=== PATIENT | male | born 1940 | race Caucasian/White ===

== ENCOUNTER → 2020-06-13 | Outpatient (CLI) | payer MEDICARE, OTHER ==
[~2020-06-13] MED LIST: CINN500C9 PO; FLAX SEED PO; LEVA500T OR; MULTIVIT PO; OMEGA 3 PO; SIMV20TA2 PO; SIMV20TA22 PO; VICO5TAB PO
== END ==
LOC: M LABSMTC 09:24
PROVIDERS: ATTEND Internal Medicine Cardiovascular Disease
DX: Z20.828 Contact with and (suspected) exposure to other viral communicable diseases (principal); Z11.59 Encounter for screening for other viral diseases

== ENCOUNTER → 2020-10-15 | Outpatient (CLI) | payer MEDICARE, OTHER ==
[~2020-10-15] MED LIST changes: +CINN1CAP6 PO; +D-50TAB PO; +FLAX100016 PO; +FRUICAP PO; +ONDA8TAB10 PO; +PROC10TA4 PO; +SUPETAB PO; +[UNRECOGNIZED DRUG - OTHER] PO
== END ==
LOC: M LABSMTC 10:22
PROVIDERS: ATTEND Internal Medicine Cardiovascular Disease
DX: Z20.828 Contact with and (suspected) exposure to other viral communicable diseases (principal); Z11.59 Encounter for screening for other viral diseases

== ENCOUNTER 2020-10-23 06:19 | Inpatient (IN) | payer MEDICARE, OTHER ==
[2020-10-23] VITALS (48 sets, daily range): BP systolic 80–105; BP diastolic 50–71
[~2020-10-23] VITALS: Ht 175.3 cm; Wt 60.4 kg
[2020-10-23] MEDS ORDERED: ASPI81CH2 PO (06:31)
[2020-10-23] MEDS ORDERED: NS 500 ML IV ONE ×2 (06:35→08:00)
[2020-10-23] MEDS ORDERED: ISOVUE-370 76% 100ML VIAL As Ordered ONE (06:44)
[2020-10-23 06:53] LABS: HEMATOCRIT 38.9 % (42.0-52.0); HEMOGLOBIN 13.6 g/dl (13.5-17.5); MEAN CORPUSCULAR HEMOGLOBIN 32.9 pg (27.0-33.0); RED BLOOD COUNT 4.14 10^6/uL (4.30-6.10)
[2020-10-23] MEDS ORDERED: IMIPENEM/CILASTATIN 500 MG in D5W MINI-BAG PLUS 100 ML IV ONE (07:05)
[2020-10-23 07:07] LABS: INR 1.23; PARTIAL THROMBOPLASTIN TIME 30.9 SECONDS (25.9-37.0); PROTHROMBIN TIME 15.9 SECONDS (12.7-14.5)
[2020-10-23 07:20] LABS: ALBUMIN 3.3 GM/DL (3.2-5.2); ALT/SGPT 17 U/L (12-78); BILIRUBIN,DIRECT 0.4 MG/DL (0.0-0.2); BILIRUBIN,TOTAL 0.9 MG/DL (0.2-1.0); BLOOD UREA NITROGEN 15 MG/DL (7-18); CALCIUM LEVEL 8.7 MG/DL (8.8-10.2); CARBON DIOXIDE LEVEL 24 MEQ/L (21-32); CHLORIDE LEVEL 102 MEQ/L (98-107); CK-MB VALUE MASS < 1.0 NG/ML (<3.6); CPK CREATINE PHOSPHOKINASE 24 U/L (39-308); CREATININE FOR GFR 1.13 MG/DL (0.70-1.30); GLOMERULAR FILTRATION RATE > 60.0 (>35); GLUCOSE, FASTING 215 MG/DL (70-100); MB/CK RELATIVE INDEX 4.17 (< OR =4); NT-PRO BNP 2080 PG/ML (<450); POTASSIUM SERUM 3.6 MEQ/L (3.5-5.1); SODIUM LEVEL 137 MEQ/L (136-145); TOTAL PROTEIN 5.9 GM/DL (6.4-8.2); TROPONIN I 0.15 NG/ML (< 0.10)
[2020-10-23] MEDS ORDERED: ACETAMINOPHEN 325 MG TAB PO ONE (07:30)
[2020-10-23 07:32] LABS: PLATELET COUNT, AUTOMATED 49 10^3/uL (150-450); WHITE BLOOD COUNT 23.5 10^3/uL (4.0-10.0)
[2020-10-23 07:39] LABS: LYMPHOCYTES 2 % (16-44); MONOCYTES 8 % (0-5); NEUTROPHILS 84 % (28-66)
[2020-10-23 07:40] LABS: PLATELET ESTIMATE DECREASED (NORMAL)
--- NOTE | 2020-10-23 07:48 | REPVR ---
PROCEDURE INFORMATION: Exam: CTA Chest With Contrast Exam date and time: 10/23/2020 6:31 AM Age: 80 years old Clinical indication: Fever; Additional info: R/O tad, recent tavr, febrile TECHNIQUE: Imaging protocol: Computed tomographic angiography of the chest with contrast. 3D rendering (Not supervised by radiologist): MIP and/or 3D reconstructed images were created by the technologist. Radiation optimization: All CT scans at this facility use at least one of these dose optimization techniques: automated exposure control; mA and/or kV adjustment per patient size (includes targeted exams where dose is matched to clinical indication); or iterative reconstruction. Contrast material: ISO; Contrast volume: 75 ml; Contrast route: INTRAVENOUS (IV); COMPARISON: CT ANGIO CHEST - OUTSIDE PRIOR 06/18/2020 12:24 PM FINDINGS: Tubes, catheters and devices: Right chest MediPort. Pulmonary arteries: Normal. No pulmonary emboli. Aorta: Mild atherosclerotic disease of the thoracic aorta. Lungs: Centrilobular emphysema. Bilateral dependent and linear atelectasis. Several patchy nodular airspace and ground-glass opacities in the left lower lobe. Pleural spaces: Unremarkable. No pneumothorax. No pleural effusion. Heart: Coarsely calcified mitral annulus. Atherosclerotic disease of the coronary arteries. Status post aortic valve replacement. Lymph nodes: Unremarkable. No enlarged lymph nodes. Pancreas: Suggestion of pancreatic tail body segment mass Adrenal glands: Bilateral adrenal nodularity more pronounced on the left. Bones/joints: Osteopenia. Multilevel degenerative disease of the thoracic spine. Age-indeterminate probably chronic anterior wedge compression deformities of T1, T2, and T11. Chronic fracture deformities of several left ribs. Soft tissues: Unremarkable. IMPRESSION: No acute pulmonary embolic disease or thoracic aortic dissection. Several patchy nodular airspace and ground-glass opacities in the left lower lobe. Suggestion of pancreatic tail body segment mass Bilateral adrenal nodularity. Electronically signed by: Ryan Gray On 10/23/2020 07:48:15 AM
[2020-10-23] MEDS ORDERED: NS 790 ML in IV 1 EA IV ONE (08:00)
[2020-10-23 08:12] LABS: RSV AMPLIFICATION NEGATIVE (NEGATIVE)
--- NOTE | 2020-10-23 08:23 | REP ---
INDICATION: CHEST PAIN. COMPARISON: None. FINDINGS: The technique utilized in obtaining the radiograph has magnified the cardiac silhouette and accentuated the interstitial markings. The cardiomediastinal silhouette is within normal limits. There is an intracardiac device. There is a MediPort device entering from the right the tip of which is in the superior vena cava. The right CP angle has not been included on this portable radiograph. No patchy parenchymal opacities or pleural effusions are evident. The osseous structures are within normal limits. IMPRESSION: There is no plain radiographic evidence of acute cardiopulmonary disease. The patient did have a more sensitive CT examination of the chest earlier today. All interested parties should review that report. <Electronically signed by Javon Rucker > 10/23/20 1447
[2020-10-23] MEDS ORDERED: ONDA8TAB10 PO (08:47)
[2020-10-23] MEDS ORDERED: PROC10TA4 PO (08:47)
[2020-10-23] MEDS ORDERED: D31000TA2 PO (08:47)
[2020-10-23] MEDS ORDERED: HOME MED LIST COMPLETE! XX SCH (08:50)
[2020-10-23] MEDS ORDERED: ACETAMINOPHEN TAB 650MG DOSE (2X325MG) PO PRN (09:00)
[2020-10-23] MEDS: MULTIVITAMINS/MINERALS THERAP 1 TAB PO SCH (09:00)
[2020-10-23] MEDS ORDERED: ONDANSETRON 4 MG TAB PO PRN (09:00)
[2020-10-23] MEDS ORDERED: PROCHLORPERAZINE 5 MG TAB (S0183) PO PRN (09:00)
[2020-10-23] MEDS ORDERED: VANCOMYCIN HCL 1,250 MG in NS 250 ML IV ONE (09:05)
[2020-10-23] MEDS ORDERED: NOREPINEPHRINE BITARTRATE 8 MG in D5W 492 ML IV SCH (09:25)
[2020-10-23] MEDS ORDERED: HYDROCORTISONE 100 MG/2 ML VIAL (J1720 PER 1) IV ONE (09:25)
[2020-10-23] MEDS ORDERED: VANCOMYCIN HCL 1,000 MG, VIAL MATE ADAPTER 1 EACH in NS 250 ML IV SCH (09:30)
[2020-10-23] MEDS ORDERED: VANCOMYCIN HCL 750 MG, VIAL MATE ADAPTER 1 EACH in NS 250 ML IV ONE (10:00)
[2020-10-23] MEDS ORDERED: VANCOMYCIN HCL 500 MG in D5W MINI-BAG PLUS 100 ML IV ONE (11:00)
[2020-10-23] MEDS ORDERED: NS 1,000 ML IV ONE (11:30)
[2020-10-23] MEDS: NS 1,000 ML IV SCH (12:19)
--- NOTE | 2020-10-23 13:00 | HPEPDOC ---
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 Hernández and otherwise also follows at [place], otherwise was previously healthy, walked 5miles/day, who was doing well after his TAVR but last evening had rigors and this morning was drenched and hot to touch and weak and brought him to the ED. The reports fair PO, recent mild weakness but not the degree that he is today. He otherwise has not had any chest pain, palpitations, shortness of breath com plaints, abdominal pain, reports of bleeding in urine, stool or any part of his body. In the ED, he was hypotensive, febrile, weak, lethargic with mild degree of confusion. Workup was notable for LLL opacities on CTA chest with confirmation of a known pancreatic tail mass and CXR was unremarkable, stat TTE that confirmed that AV is working well as expected and EF is normal per Dr. Doran confirmed wet read, WBC 23.5, Hgb 13.6, platelets 49, na 137, K 3.6, Cr .113, glucose 215, lactic acidosis to 3, proBNP 2080, elevated troponin at 0.15 with an EKG with NSR without ST segment changes. He was given imipenem and vancomycin, 1.5L fluid bolus and started on peripheral levophed. He is now being admitted to the ICU for septic shock. 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 Hernández and otherwise also follows at [place] History of BPH HLD Chronic back complaints with remote history of falling off a roof with a history of several remote vertebral fractures PAST SURGICAL HISTORY: Colonoscopies Prostatectomy Abdominal hernia repair Bilateral cataract removal surgeries TAVR SOCIAL HISTORY: Tobacco use: quit >40y ago ETOH: Rare Illicit drug use: None FAMILY HISTORY: Unable to obtain due to lethargy ALLERGIES: Please see below. REVIEW OF SYSTEMS: Given by . 10point ROS was negative except as noted above. HOME MEDICATIONS: Please see below. PHYSICAL EXAMINATION: VITAL SIGNS: see below GENERAL APPEARANCE: Lethargic, however alert and oriented on questioning, x 3, elderly appearing, thin, diaphoretic, but breathing comfortably HEENT: NCAT, EOMI, PERRLA, dry MMM, anicteric CARDIOVASCULAR: RRR, systolic murmur at RUSB LUNGS: CTAB, has port at R upper chest, no surrounding erythema, had not been accessed in the ED ABDOMEN: Normoactive sounds, scaphoid, soft, NTND EXTREMITIES: WWP, 2+ DP pulses, no edema. Checked recent femoral access site did not have surrounding erythema, fluctuance or hematoma NEUROLOGICAL: CN3-12 intact, moving all extremities, drowsy but speech is clear when he speaks PSYCHIATRIC: Aox3 at this time LABORATORY DATA and IMAGING: summarized above MICROBIOLOGY: Please see below. 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 Hernández and otherwise also follows at [place], otherwise was previously healthy, walked 5miles/day, who was doing well after his TAVR but last evening had rigors and this morning was drenched and hot to touch and weak and brought him to the ED and is now being admitted to the ICU for septic shock. PLAN: Septic shock: s/p 30cc/kg IVF with persistent hypotension, fever, leukocytosis, tachycardia, lethargy -will give 2 more liters with 1L as bolus and 1L at 100cc/hr -continue levophed and will use port instead of placing a TLC, MAP goal >65 -IV vanc and imi empiric antibiotics -acetaminophen PRN for fevers -BCx -UA with UCx -CT with LLL GGOs c/w PNA -MRSA swab -procalcitonin -strict I/Os Thrombocytopenia: acute, was wnl on 10/08 pre-op -Possibly consumptive olman-op? vs. reactive to sepsis vs. pseudothrombocytopenia due to clumping i/s/o sepsis -will check peripheral smear -for now DVT ppx with TEDs and SCDs -monitor CBC daily Metabolic encephalopathy i/s/o overwhelming sepsis -empiric antibiotics as noted above -IVF -neuro exam is stable and wnl s/p recent TAVR: -valve is in place and working well and EF is wnl per Dr. Doran wet read Troponinemia: likely 2/2 demand ischemia i/s/o septic shock -TTE with normal EF and no reports of WMA per wet read and EKG without ST changes, and patient without complaints of chest pain, will trend -tele Lactic acidosis: i/s/o septic shock -IVF per above DVT ppx: TEDs and SCDs Vital Signs Vital Signs Date Time Temp Pulse Resp B/P (MAP) Pulse Ox O2 Delivery O2 Flow Rate FiO2 10/23/20 09:50 100.6 101 93/52 (66) 98 Nasal Cannula 2.0 10/23/20 09:25 22 Laboratory Data Labs 24H Laboratory Tests 2 10/23/20 06:32: POC Glucose (Misc Panel) 232H, POC Sodium (Misc Panel) 136, POC Potassium (Misc Panel) 3.6, POC Chloride (Misc Panel) 98, POC Total CO2 (Misc Panel) 20.0L, POC Blood Urea Nitrogen (Misc Panel 15, POC Ionized Calcium (Misc Panel) 4.4L, POC Creatinine (Misc Panel) 0.9, POC Hematocrit (Misc Panel) 40.0 10/23/20 06:38: Immature Granulocyte % (Auto) , Neutrophils (%) (Auto) , Nucleated Red Blood Cells % (auto) 0.1H, Neutrophils 84H, Band Neutrophils 6, Lymphocytes (Manual) 2L, Monocytes (Manual) 8H, Red Blood Cell Morphology NORMAL, Platelet Estimate DECREASED, Immature Platelet Fraction 7.1, Prothrombin Time 15.9H, Prothromb Ti me International Ratio 1.23, Activated Partial Thromboplast Time 30.9, Anion Gap 11, Glomerular Filtration Rate > 60.0, Calcium Level 8.7L, Total Bilirubin 0.9, Direct Bilirubin 0.4H, Aspartate Amino Transf (AST/SGOT) 13, Alanine Aminotransferase (ALT/SGPT) 17, Alkaline Phosphatase 132H, Total Creatine Kinase 24L, Creatine Kinase MB < 1.0, Creatine Kinase MB Relative Index 4.17H, Troponin I 0.15H, EP-Vic-N-Type Natriuretic Peptide 2080H, Total Protein 5.9L, Albumin 3.3, Albumin/Globulin Ratio 1.3 10/23/20 06:42: Lactic Acid Level 3.0*H, Coronavirus (COVID-19)(PCR) NEGATIVE, Influenza Type A (RT-PCR) NEGATIVE, Influenza Type B (RT-PCR) NEGATIVE, Respiratory Syncytial Virus (PCR) NEGATIVE 10/23/20 11:11: Lactic Acid Followup at 4 Hours 2.9*H CBC/BMP Laboratory Tests 10/23/20 06:38 Microbiology Microbiology 10/23/20 Blood Culture, Received Pending 10/23/20 Blood Culture, Received Pending Home Medications Scheduled Aspirin (Aspirin) 81 Mg Tab.chew, 81 MG PO QPM Cholecalciferol (Vitamin D3) (Vitamin D3) 1,000 Unit Tablet, 1,000 UNITS PO QPM Multivitamin (Super Multivitamin) 1 Each Tablet, 1 TAB PO QPM Scheduled PRN Ondansetron HCl (Ondansetron HCl) 8 Mg Tablet, 8 MG PO Q8H PRN for NAUSEA OR VOMITING Prochlorperazine Maleate (Prochlorperazine Maleate) 10 Mg Tablet, 10 MG PO Q8H PRN for NAUSEA OR VOMITING Allergies Coded Allergies: Penicillins (Unverified Allergy, Severe, RESPIRATORY PROBLEMS, 10/12/20) A-FIB/CHADSVASC A-FIB History Current/History of A-Fib/PAF?: No Current PO Anticoag Therapy: No Age/Risk Factor Scoring CHADSVASC: CHADSVASC Response (Comments) Value Age Risk Factor Age >/= 75 years old 2 Gender Risk Factor Male 0 Hx of CHF No 0 Hx of HTN No 0 Hx of Stroke/TIA/or VTE No 0 Hx of Diabetes No 0 Hx of Vascular Disease No 0 Total 2 Treatment Treatment ordered: NONE Reason Anticoagulant not given: Not indicated/[id number] NADINE MORAES MD Oct 23, 2020 12:48
[2020-10-23] MEDS: IMIPENEM/CILASTATIN 500 MG in D5W MINI-BAG PLUS 100 ML IV SCH ×2 (15:03→20:54)
[2020-10-23] MEDS: VITAMIN D 1,000 INTERNATIONAL UNITS TABLET PO SCH (18:15)
[2020-10-23] MEDS: ASPIRIN 81 MG CHEW TABLET PO SCH (18:15)
--- NOTE | 2020-10-23 19:17 | ECGEPIP ---
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
[2020-10-23] MEDS ORDERED: ENOXAPARIN 40MG/0.4ML SYRINGE (J1650 PER 10MG) SC SCH (21:00)
[2020-10-24] VITALS (42 sets, daily range): BP systolic 80–133; BP diastolic 43–71
[2020-10-24] MEDS ORDERED: NOREPINEPHRINE BITARTRATE 16 MG in D5W 484 ML IV SCH ×2
[2020-10-24] MEDS ORDERED: VANCOMYCIN HCL 750 MG, VIAL MATE ADAPTER 1 EACH in NS 250 ML IV SCH ×3
[2020-10-24] MEDS: NS 1,000 ML IV SCH (00:14)
[2020-10-24] MEDS: IMIPENEM/CILASTATIN 500 MG in D5W MINI-BAG PLUS 100 ML IV SCH ×2 (02:04→08:29)
[2020-10-24 04:39] LABS: HEMATOCRIT 29.9 % (42.0-52.0); HEMOGLOBIN 10.3 g/dl (13.5-17.5); MEAN CORPUSCULAR HEMOGLOBIN 32.6 pg (27.0-33.0); MEAN CORPUSCULAR HGB CONC 34.4 g/dl (32.0-36.5); MEAN CORPUSCULAR VOLUME 94.6 fl (80.0-96.0); RED BLOOD COUNT 3.16 10^6/uL (4.30-6.10); WHITE BLOOD COUNT 29.1 10^3/uL (4.0-10.0)
[2020-10-24 04:47] LABS: PLATELET COUNT, AUTOMATED 41 10^3/uL (150-450)
[2020-10-24 04:55] LABS: BLOOD UREA NITROGEN 18 MG/DL (7-18); CARBON DIOXIDE LEVEL 23 MEQ/L (21-32); CHLORIDE LEVEL 109 MEQ/L (98-107); CREATININE FOR GFR 0.73 MG/DL (0.70-1.30); GLOMERULAR FILTRATION RATE > 60.0 (>35); GLUCOSE, FASTING 164 MG/DL (70-100); MAGNESIUM LEVEL 1.7 MG/DL (1.8-2.4); POTASSIUM SERUM 3.3 MEQ/L (3.5-5.1); SODIUM LEVEL 139 MEQ/L (136-145)
[2020-10-24] MEDS: MULTIVITAMINS/MINERALS THERAP 1 TAB PO SCH (08:29)
[2020-10-24] MEDS ORDERED: MAG SULF 1GM/100ML (MAG RUN) 1 GM in IV 1 EA IV ONE (10:00)
[2020-10-24] MEDS ORDERED: CALCIUM GLUCONATE 1,000 MG in D5W MINI-BAG PLUS 100 ML IV ONE (10:00)
[2020-10-24] MEDS ORDERED: POTASSIUM CHLORIDE 10 MEQ SR TABLET PO ONE (10:00)
--- NOTE | 2020-10-24 13:55 | IPNPDOC ---
Text Note Date of Service The patient was seen on 10/24/20. NOTE SUBJECTIVE: -No acute complaints, now on room air -Mentating well this morning, conversant -Was placed on transient levophed overnight, now off PHYSICAL EXAMINATION: VITAL SIGNS: see below GENERAL APPEARANCE: AO x 3, elderly appearing, thin, on room air HEENT: NCAT, EOMI, PERRLA, MMM, anicteric CARDIOVASCULAR: RRR, systolic murmur at RUSB LUNGS: CTAB, has port at R upper chest, no surrounding erythema, port in use, on room air ABDOMEN: Normoactive sounds, scaphoid, soft, NTND EXTREMITIES: WWP, 2+ DP pulses, no edema. NEUROLOGICAL: CN3-12 intact, moving all extremities, sitting up in chair, AOx3 PSYCHIATRIC: Aox3 at this time LABORATORY DATA: WBC 29.1 hgb 10.3 platelets 41 na 139 K 3.3 ( repleted) mag 1.7 ( repleted) Ca 7 (repleted) Cr 0.73 MICROBIOLOGY: Please see below. 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 Hernández and otherwise also follows at [place], otherwise was previously healthy, walked 5miles/day, who was doing well after his TAVR but developed rigors, fevers and weakness now admitted to the ICU for septic shock with Staph bacteremia. PLAN: Septic shock: s/p 30cc/kg IVF with persistent hypotension, fever, leukocytosis, tachycardia, lethargy: Improving -s/p IVF -Was on low dose levophed overnight, now MAPs >65 off levophed, will monitor closely -IV vanc -dc imipenem with nancy staph bacteremia -acetaminophen PRN for fevers -BCx growing Staph --> will need ID consult on monday. Check new BCx daily till negative. -UA with UCx -CT with LLL GGOs c/f PNA -MRSA PCR was negative Thrombocytopenia: acute, was wnl on 10/08 pre-op: persistent -Possibly consumptive olman-op? vs. reactive to sepsis vs. pseudothrombocytopenia due to clumping i/s/o sepsis -f/u peripheral smear -for now DVT ppx with TEDs and SCDs -monitor CBC daily Metabolic encephalopathy i/s/o overwhelming sepsis: improving -empiric antibiotics as noted above -s/p IVF -neuro exam is stable and wnl s/p recent TAVR: -valve is in place and working well and EF is wnl per Dr. Doran wet read Troponinemia: likely 2/2 demand ischemia i/s/o septic shock -TTE with normal EF and no reports of WMA per wet read and EKG without ST changes, and patient without complaints of chest pain, will trend -tele Lactic acidosis: i/s/o septic shock -s/p IVF DVT ppx: TEDs and SCDs VS,Fishbone, I+O VS, Fishbone, I+O Laboratory Tests 10/24/20 04:21 Vital Signs Date Time Temp Pulse Resp B/P (MAP) Pulse Ox O2 Delivery O2 Flow Rate FiO2 10/24/20 07:00 90 101/57 (72) 98 Nasal Cannula 2.0 10/24/20 04:00 98.0 10/24/20 01:34 30 I&O- Last 24 Hours up to 6 AM 10/24/20 06:00 Intake Total 4565 ml Output Total 1000 ml Balance 3565 ml NADINE MORAES MD Oct 24, 2020 08:46
[2020-10-24] MEDS: VANCOMYCIN HCL 1,000 MG, VIAL MATE ADAPTER 1 EACH in NS 250 ML IV SCH (14:01)
[2020-10-24] MEDS ORDERED: NS 1,000 ML IV SCH (17:00)
[2020-10-24] MEDS: ASPIRIN 81 MG CHEW TABLET PO SCH (17:50)
[2020-10-24] MEDS: VITAMIN D 1,000 INTERNATIONAL UNITS TABLET PO SCH (17:50)
[2020-10-25] VITALS: BP 106/57
[2020-10-25] MEDS: VANCOMYCIN HCL 1,000 MG, VIAL MATE ADAPTER 1 EACH in NS 250 ML IV SCH (01:27)
[2020-10-25 04:00] VITALS: BP 107/56
[2020-10-25 05:21] LABS: HEMATOCRIT 28.6 % (42.0-52.0); HEMOGLOBIN 9.9 g/dl (13.5-17.5); MEAN CORPUSCULAR HEMOGLOBIN 32.8 pg (27.0-33.0); MEAN CORPUSCULAR HGB CONC 34.6 g/dl (32.0-36.5); MEAN CORPUSCULAR VOLUME 94.7 fl (80.0-96.0); RED BLOOD COUNT 3.02 10^6/uL (4.30-6.10); WHITE BLOOD COUNT 20.8 10^3/uL (4.0-10.0)
[2020-10-25 05:32] LABS: PLATELET COUNT, AUTOMATED 39 10^3/uL (150-450)
[2020-10-25 05:43] LABS: BLOOD UREA NITROGEN 19 MG/DL (7-18); CARBON DIOXIDE LEVEL 22 MEQ/L (21-32); CHLORIDE LEVEL 111 MEQ/L (98-107); CREATININE FOR GFR 0.72 MG/DL (0.70-1.30); GLOMERULAR FILTRATION RATE > 60.0 (>35); GLUCOSE, FASTING 123 MG/DL (70-100); POTASSIUM SERUM 3.7 MEQ/L (3.5-5.1); SODIUM LEVEL 139 MEQ/L (136-145)
[2020-10-25 08:10] VITALS: BP 116/56
[2020-10-25] MEDS ORDERED: VANCOMYCIN HCL 1,000 MG, VIAL MATE ADAPTER 1 EACH in NS 250 ML IV SCH (09:00)
[2020-10-25 09:42] LABS: MAGNESIUM LEVEL 2.1 MG/DL (1.8-2.4)
[2020-10-25] MEDS: MULTIVITAMINS/MINERALS THERAP 1 TAB PO SCH (09:51)
[2020-10-25 12:08] VITALS: BP 115/61
[2020-10-25] MEDS: ceFAZolin SOD 2 GM in IV 1 EA IV SCH ×2 (14:09→21:13)
--- NOTE | 2020-10-25 14:28 | IPNPDOC ---
Subjective Date Seen The patient was seen on 10/25/20. Subjective Chief Complaint/HPI Feels very weak and tired. No fever in the past 24 hours. Blood cultures are coming back positive for MSSA Objective Physical Examination General Exam: Positive: Alert, Cooperative, No Acute Distress Eye Exam: Positive: PERRLA, Conjunctiva & lids normal, EOMI; Negative: Sclera icteric ENT Exam: Positive: Atraumatic, Mucous membr. moist/pink, Pharynx Normal Neck Exam: Positive: Supple; Negative: JVD, thyromegaly Chest Exam: Positive: Clear to auscultation, Normal air movement Heart Exam: Positive: Tachycardic, Irregular Rhythm, Normal S1, Normal S2; Negative: Murmurs, Rubs Abdomen Exam: Positive: Normal bowel sounds, Soft; Negative: Tenderness Extremity Exam: Negative: Clubbing, Cyanosis, Edema Neuro Exam: Positive: Normal Speech, Strength at 5/5 X4 ext, Normal Tone Psych Exam: Positive: Memory Intact, Oriented x 3 Assessment /Plan Assessment 80 yo M with history of critical s/p TAVR on 10/19/20, diagnosis of pancreatic cancer in June 2020 pending to be started on FOLFOXIRI by Dr. Hernández and otherwise also follows at [place], otherwise was previously healthy, walked 5miles/day, who was doing well after his TAVR but developed rigors, fevers and weakness now admitted to the ICU for septic shock with Staph bacteremia. Septic shock: MSSA bacterimia CTA of chest showed: Several patchy nodular airspace and ground-glass opacities in the left lower lobe. Has a chemoport and bioprosthetic aortic valve in place. Also showed the known pancreatic tail body segment mass and Bilateral adrenal nodularity. s/p IVF sepsis protocol and levophed. We will change vancomycin to cefazolin Patient carries penicillin allergy so will watch closely for any allergic reaction to cefazolin consult ID on Monday. Possible left lower lobe pneumonia with MSSA bacterimia. CTA of chest showed: Several patchy nodular airspace and ground-glass opacities in the left lower lobe. continue Cefazolin. Thrombocytopenia was wnl on 10/08/20 pre-op Possibly consumptive olman-op? vs. reactive to sepsis vs. pseudothrombocytopenia due to clumping i/s/o sepsis f/u peripheral smear for now DVT ppx with TEDs and SCDs monitor CBC daily Metabolic encephalopathy Due to sepsis Improved s/p recent TAVR: Needed the valve fixed in anticipation of surgery for the pancreatic cancer. valve is in place and working well and EF is wnl per Dr. Doran wet read However in view of the positive blood cultures may need ESA We will consult ID Troponinemia: likely 2/2 demand ischemia i/s/o septic shock TTE with normal EF and no reports of WMA per wet read and EKG without ST changes, and patient without complaints of chest pain, will trend Lactic acidosis: i/s/o septic shock s/p IVF DVT ppx: TEDs and SCDs Plan/VTE VTE Prophylaxis Ordered?: Yes VS, I&O, 24H, Fishbone Vital Signs/I&O Vital Signs Date Time Temp Pulse Resp B/P (MAP) Pulse Ox O2 Delivery O2 Flow Rate FiO2 10/25/20 08:10 98.5 89 16 116/56 (76) 98 Room Air 10/24/20 07:30 2.0 I&O- Last 24 Hours up to 6 AM 10/25/20 06:00 Intake Total 3762 ml Output Total 1075 ml Balance 2687 ml Laboratory Data 24H LABS Laboratory Tests 2 10/24/20 12:36: Vancomycin Level Trough 5.7L 10/25/20 05:06: Nucleated Red Blood Cells % (auto) 0.0, Immature Platelet Fraction 14.4H, Anion Gap 6L, Glomerular Filtration Rate > 60.0, Calcium Level 7.0L, Random Vancomycin Level 18.0 CBC/BMP Laboratory Tests 10/25/20 05:06 Microbiology Microbiology 10/24/20 Blood Culture, Received Pending 10/24/20 Blood Culture, Received Pending 10/23/20 Blood Culture - Final, Complete Staphylococcus Aureus 10/23/20 Blood Culture - Final, Complete Staphylococcus Aureus Evelyn Lakhani MD Oct 25, 2020 09:07
[2020-10-25 16:20] VITALS: BP 109/55
--- NOTE | 2020-10-25 17:29 | ECHO ---
ECHOCARDIOGRAM DATE OF PROCEDURE: 10/23/2020 Age: 80 Gender: Male REFERRING PHYSICIAN: Bam Aguilera DO REASON FOR THE TESTING: Fever, aortic valve replacement/transcatheter aortic valve replacement (TAVR). MEASUREMENTS: 2D Measurements: None Doppler Measurements: Peak velocity across the aortic valve 1.66 m/sec Peak gradient across the aortic valve 11 mmHg Mean gradient across the aortic valve 7.5 mmHg Peak velocity across the LVOT 0.7 m/sec Mitral E 0.92 Mitral A 1.04 with a ratio of 0.89 Maximum tricuspid valve velocity 2.2 m/sec 2D COMMENTS: 1. Normal left ventricular size, wall thickness and low normal global left ventricular systolic function. The estimated left ventricular ejection fraction is 50-55%. 2. Subsequently, the left atrium appeared to be normal. Normal right atrium and right ventricle. 3. The atrial septum appeared to be normal without evidence of defect or shunt. 4. Normal aortic root. 5. Trace pericardial effusion. No evidence of cardiac tamponade. 6. Bioprosthetic valve noted in the aortic valve position. Leaflet excursion appeared to be normal. Moderately calcified mitral annulus with normal anterior mitral valve leaflet motion. The tip of the anterior mitral valve leaflet appeared to be calcified. Normal tricuspid valve. The pulmonic valve and proximal pulmonary artery branches were not well visualized. 7. The inferior vena cava was normal in size. Central venous pressure was most likely normal. DOPPLER: It detects trace to mild aortic regurgitation, mild mitral regurgitation, trace to mild tricuspid regurgitation. The calculated pulmonary artery systolic pressure was normal. Abnormal relaxation pattern was noted across the mitral valve leaflets as well as the mitral valve annulus consistent with features of grade 1 left ventricular systolic dysfunction. IMPRESSION: 1. Low normal global left ventricular systolic function. There are some features of grade 1 left ventricular diastolic dysfunction manifested by abnormal relaxation. 2. Bioprosthetic aortic valve with trace to mild aortic regurgitation. 3. Moderately calcified mitral annulus with mild mitral regurgitation. 4. Trace to mild tricuspid regurgitation with a normal calculated pulmonary artery systolic pressure. 5. Trace pericardial effusion. 6. This study was discussed with the emergency room (ER) provider as well as the hospitalist admitting the patient. RENZO
[2020-10-25] MEDS: ASPIRIN 81 MG CHEW TABLET PO SCH (18:24)
[2020-10-25 20:00] VITALS: BP 121/60
[2020-10-26] VITALS (7 sets, daily range): BP systolic 93–137; BP diastolic 48–69
[2020-10-26 05:09] LABS: HEMOGLOBIN 11.4 g/dl (13.5-17.5); MEAN CORPUSCULAR HEMOGLOBIN 32.5 pg (27.0-33.0); MEAN CORPUSCULAR HGB CONC 34.5 g/dl (32.0-36.5); RED BLOOD COUNT 3.51 10^6/uL (4.30-6.10); WHITE BLOOD COUNT 27.5 10^3/uL (4.0-10.0)
[2020-10-26 05:11] LABS: PLATELET COUNT, AUTOMATED 61 10^3/uL (150-450)
[2020-10-26 05:26] LABS: BLOOD UREA NITROGEN 15 MG/DL (7-18); CALCIUM LEVEL 7.3 MG/DL (8.8-10.2); CARBON DIOXIDE LEVEL 25 MEQ/L (21-32); CHLORIDE LEVEL 106 MEQ/L (98-107); CREATININE FOR GFR 0.79 MG/DL (0.70-1.30); GLOMERULAR FILTRATION RATE > 60.0 (>35); GLUCOSE, FASTING 111 MG/DL (70-100); POTASSIUM SERUM 3.4 MEQ/L (3.5-5.1); SODIUM LEVEL 138 MEQ/L (136-145)
[2020-10-26] MEDS: ceFAZolin SOD 2 GM in IV 1 EA IV SCH ×3 (05:35→21:20)
[2020-10-26] MEDS ORDERED: POTASSIUM CHLORIDE 10 MEQ SR TABLET PO ONE (07:10)
[2020-10-26] MEDS: LACTOBACILLUS ACIDOPHILUS CAP (BACID) PO SCH ×2 (09:10→21:19)
[2020-10-26] MEDS: MULTIVITAMINS/MINERALS THERAP 1 TAB PO SCH (09:10)
--- NOTE | 2020-10-26 12:24 | IPNPDOC ---
Subjective Date Seen The patient was seen on 10/26/20. Subjective Chief Complaint/HPI Sitting up in chair this morning eating breakfast. Reports that he feels a little better than yesterday and has a little more appetite than yesterday. Continues to have low-grade fever. Objective Physical Examination General Exam: Positive: Alert, Cooperative, No Acute Distress Eye Exam: Positive: PERRLA, Conjunctiva & lids normal, EOMI; Negative: Sclera icteric ENT Exam: Positive: Atraumatic, Mucous membr. moist/pink, Pharynx Normal Neck Exam: Positive: Supple; Negative: JVD, thyromegaly Chest Exam: Positive: Clear to auscultation, Normal air movement Heart Exam: Positive: Tachycardic, Irregular Rhythm, Normal S1, Normal S2; Negative: Murmurs, Rubs Abdomen Exam: Positive: Normal bowel sounds, Soft; Negative: Tenderness Extremity Exam: Negative: Clubbing, Cyanosis, Edema Neuro Exam: Positive: Normal Speech, Strength at 5/5 X4 ext, Normal Tone Psych Exam: Positive: Memory Intact, Oriented x 3 Assessment /Plan Assessment 80 yo M with history of critical s/p TAVR on 10/19/20, diagnosis of pancreatic cancer in June 2020 pending to be started on FOLFOXIRI by Dr. Hernández and otherwise also follows at [place], otherwise was previously healthy, walked 5miles/day, who was doing well after his TAVR but developed rigors, fevers and weakness now admitted to the ICU for septic shock with Staph bacteremia. Septic shock: MSSA bacterimia CTA of chest showed: Several patchy nodular airspace and ground-glass opacities in the left lower lobe. Has a chemoport and bioprosthetic aortic valve in place. Also showed the known pancreatic tail body segment mass and Bilateral adrenal nodularity. s/p IVF sepsis protocol and levophed. We will change vancomycin to cefazolin consulted ID Possible left lower lobe pneumonia with MSSA bacterimia. CTA of chest showed: Several patchy nodular airspace and ground-glass opacities in the left lower lobe. continue Cefazolin. Thrombocytopenia was wnl on 10/08/20 pre-op Possibly consumptive olman-op? vs. reactive to sepsis vs. pseudothrombocytopenia due to clumping i/s/o sepsis f/u peripheral smear for now DVT ppx with TEDs and SCDs monitor CBC daily Metabolic encephalopathy Due to sepsis Improved s/p recent TAVR: Needed the valve fixed in anticipation of surgery for the pancreatic cancer. valve is in place and working well and EF is wnl However in view of the positive blood cultures may need ESA We will consult ID Troponinemia: likely 2/2 demand ischemia i/s/o septic shock TTE with normal EF and no WMA and EKG without ST changes, and patient without complaints of chest pain Lactic acidosis: i/s/o septic shock s/p IVF Plan/VTE VTE Prophylaxis Ordered?: Yes VS, I&O, 24H, Fishbone Vital Signs/I&O Vital Signs Date Time Temp Pulse Resp B/P (MAP) Pulse Ox O2 Delivery O2 Flow Rate FiO2 10/26/20 11:22 97.9 79 18 137/68 (91) 96 Room Air 10/24/20 07:30 2.0 I&O- Last 24 Hours up to 6 AM 10/26/20 06:00 Intake Total 890 ml Output Total 1150 ml Balance -260 ml Laboratory Data 24H LABS Laboratory Tests 2 10/26/20 04:43: Nucleated Red Blood Cells % (auto) 0.0, Anion Gap 7L, Glomerular Filtration Rate > 60.0, Calcium Level 7.3L 10/26/20 11:32: Lab Scanned Report Miscellaneous Lab CBC/BMP Laboratory Tests 10/26/20 04:43 Microbiology Microbiology 10/24/20 Blood Culture - Preliminary, Resulted No Growth after 48 hours. All Specime... 10/24/20 Blood Culture - Preliminary, Resulted No Growth after 48 hours. All Specime... 10/23/20 Blood Culture - Final, Complete Staphylococcus Aureus 10/23/20 Blood Culture - Final, Complete Staphylococcus Aureus Evelyn Lakhani MD Oct 26, 2020 12:24
[2020-10-26] MEDS: ASPIRIN 81 MG CHEW TABLET PO SCH (17:00)
[2020-10-27] VITALS: BP 105/66
[2020-10-27 04:00] VITALS: BP 117/56
[2020-10-27] MEDS: ceFAZolin SOD 2 GM in IV 1 EA IV SCH ×3 (05:34→21:18)
--- NOTE | 2020-10-27 05:52 | CR ---
CONSULTATION DATE: 10/26/2020 REQUESTING PHYSICIAN: Evelyn Lakhani M.D. REASON FOR CONSULTATION: Evaluation of Staph aureus bacteremia in a patient who recently had a TAVR procedure. HISTORY OF PRESENT ILLNESS: Mr. Beal is an 80-year-old gentleman with a history of critical aortic stenosis status post TAVR procedure on 10/19/2020 at [facility] done by Dr. Jeovany Fletcher. The patient was also seen at [facility] on 09/28 and 09/29 for a workup of pancreatic cancer and was going to be started on FOLFOXIRI with Dr. Hernández. He had a port placed in his right upper chest by Dr. Gonzales. Patient presented to [facility] on 10/23 with rigors, fever, chills and weakness. He had no chest pain or palpitations. No shortness of breath. No cough. No abdominal pain, dysuria or hematuria. He has a mild cough which is mostly nonproductive. In the Emergency Room he was hypotensive, febrile, lethargic. He was diagnosed with septic shock. He was placed on Levophed and transferred to the ICU and started on broad-spectrum antibiotics with Imipenem and Vancomycin, on 10/25 after blood cultures were positive he was switched to IV Cefazolin. The patient is feeling better. He is sitting at the bedside. He has a catheter for urinary retention in the ICU. Per chart review patient had chemo 10/12-10/14 5FU oxaplatin and neupogen 10/19 before his TAVR procedure at [facility] WBC 22,000 Plts 66 and on 10/20 the day of discharge his white count was 18.5. PAST MEDICAL HISTORY: Significant for pancreatic cancer, had cycle#[address] Hernández 10/12-10/14/2020, critical aortic stenosis status post TAVR 10/19/[address] Fletcher, BPH, hyperlipidemia, chronic back pain with degenerative disc disease, vertebral fracture, colonic polyp with a colonoscopy done in [address] Pineda. PAST SURGICAL HISTORY: Prostatectomy for prostate cancer, abdominal hernia repair, bilateral cataract removal, TAVR. SOCIAL HISTORY: Quit smoking more than 40 years ago. Rare alcohol use, no drug use. He lives with his , . ALLERGIES: Penicillin. MEDICATIONS: 1. Probiotics one tablet p.o. b.i.d. 2. Cefazolin 2 grams IV q. 8 hours. 3. Aspirin 81 mg p.o. daily. 4. Multivitamin one tablet daily. 5. Compazine 10 mg p.o. q. 8 p.r.n. 6. Zofran 8 mg q. 8 p.r.n. LABORATORY DATA: White count on admission was 23.5, today it was 27.5, hemoglobin 11.4, hematocrit 33, platelets 61, sodium 138, potassium 3.4, chloride 106, bicarbonate 25, BUN 15, creatinine 0.79, glucose 111, calcium 7.3, lactic acid 3 on admission, follow-up at 2.9. Magnesium 2.1. CRP 4.01. Blood cultures two sets on 10/23 was positive for MSSA and on 10/24 two sets were negative, on 10/26 cultures are pending. On 10/23 CT angiogram showed no acute pulmonary disease or thoracic dissection, several patchy nodular airspace and ground-glass opacities in the left lower lobe and pancreatic tail mass, bilateral adrenal nodularities. Chest x-ray: No plain radiographic evidence of acute cardiopulmonary disease. PHYSICAL EXAMINATION: GENERAL: He is a pleasant gentleman sitting in his chair in no acute distress. He is thin. HEART: Normal S1 and S2, distant soft ejection murmur 1/6. LUNGS: Clear. No wheezes, rales or rhonchi. ABDOMEN: Soft, nontender. No hepatosplenomegaly. BACK: No CVA or lumbosacral tenderness. EXTREMITIES: No cyanosis, clubbing or edema. NEUROLOGIC: Normal. Alert and oriented x3. CHEST: Infusaport right upper chest, nontender. No redness. Access is not being used. : Mak catheter in place with clear urine. REVIEW OF SYSTEMS: He denies nausea, vomiting or diarrhea. He has decreased appetite and weight loss. He denies pain in the port site. He has mild cough but no shortness of breath. IMPRESSION: This is an 80-year-old gentleman who has a recent diagnosis of pancreatic cancer, waiting for Whipple procedure and he was supposed to have three cycles of chemotherapy prior to the resection. S/P TAVR procedure on 10/19 admitted with MSSA bacteremia on IV cefazolin doing better . He had first cycle of chemotherapy 10/11- 10/14 and had neulasta that would explain worsening leukocytosis . He was in septic shock but improved transferred to PCU PLAN: The case has been discussed with his environmental studies department chair, Dr. Coronado in [place] and Dr. Jeovany Fletcher who did his TAVR procedure, they both agreed that the patient will likely need six weeks of IV antibiotics with Cefazolin 2 grams every 8 hours. He will have a transesophageal echocardiogram in the next 1-[address] Coronado. It is too early to have ESA procedure done. Due to his severe thrombocytopenia, cardiology recommended to discontinue aspirin. Due to his persistent leukocytosis, I would suggest to obtain a CT of the abdomen and pelvis to rule out any metastatic infection. [facility]
[2020-10-27 05:53] LABS: HEMATOCRIT 29.8 % (42.0-52.0); HEMOGLOBIN 10.3 g/dl (13.5-17.5); MEAN CORPUSCULAR HEMOGLOBIN 32.6 pg (27.0-33.0); MEAN CORPUSCULAR HGB CONC 34.6 g/dl (32.0-36.5); MEAN CORPUSCULAR VOLUME 94.3 fl (80.0-96.0); RED BLOOD COUNT 3.16 10^6/uL (4.30-6.10)
[2020-10-27 05:54] LABS: PLATELET COUNT, AUTOMATED 80 10^3/uL (150-450)
[2020-10-27 06:17] LABS: BLOOD UREA NITROGEN 14 MG/DL (7-18); CALCIUM LEVEL 7.5 MG/DL (8.8-10.2); CARBON DIOXIDE LEVEL 24 MEQ/L (21-32); CHLORIDE LEVEL 109 MEQ/L (98-107); CREATININE FOR GFR 0.69 MG/DL (0.70-1.30); GLOMERULAR FILTRATION RATE > 60.0 (>35); GLUCOSE, FASTING 104 MG/DL (70-100); POTASSIUM SERUM 3.6 MEQ/L (3.5-5.1); SODIUM LEVEL 141 MEQ/L (136-145)
[2020-10-27 08:00] VITALS: BP 128/70
[2020-10-27] MEDS: LACTOBACILLUS ACIDOPHILUS CAP (BACID) PO SCH ×2 (08:08→21:18)
[2020-10-27] MEDS: MULTIVITAMINS/MINERALS THERAP 1 TAB PO SCH (08:08)
[2020-10-27] MEDS: GASTROGRAFIN SOLUTION 30ML PO SCH ×2 (08:09→08:49)
[2020-10-27] MEDS ORDERED: ISOVUE-370 76% 100ML VIAL As Ordered ONE (10:50)
--- NOTE | 2020-10-27 10:57 | IPNPDOC ---
Subjective Date Seen The patient was seen on 10/27/20. Subjective Chief Complaint/HPI Feels a little better this morning. Having more better appetite today. No fever in the past 24 hours. Objective Physical Examination General Exam: Positive: Alert, Cooperative, No Acute Distress Eye Exam: Positive: PERRLA, Conjunctiva & lids normal, EOMI; Negative: Sclera icteric ENT Exam: Positive: Atraumatic, Mucous membr. moist/pink, Pharynx Normal Neck Exam: Positive: Supple; Negative: JVD, thyromegaly Chest Exam: Positive: Clear to auscultation, Normal air movement Heart Exam: Positive: Tachycardic, Irregular Rhythm, Normal S1, Normal S2; Negative: Murmurs, Rubs Abdomen Exam: Positive: Normal bowel sounds, Soft; Negative: Tenderness Extremity Exam: Negative: Clubbing, Cyanosis, Edema Neuro Exam: Positive: Normal Speech, Strength at 5/5 X4 ext, Normal Tone Psych Exam: Positive: Memory Intact, Oriented x 3 Assessment /Plan Assessment 80 yo M with history of critical s/p TAVR on 10/19/20, diagnosis of pancreatic cancer in June 2020 pending to be started on FOLFOXIRI by Dr. Hernández and otherwise also follows at [place], otherwise was previously healthy, walked 5miles/day, who was doing well after his TAVR but developed rigors, fevers and weakness now admitted to the ICU for septic shock with Staph bacteremia. Septic shock: MSSA bacterimia Has a chemoport and bioprosthetic aortic valve in place. Patient had a WBC of 22K even before TAVR. This may have been the effect of Neulesta. Patient had 1 cycle of chemo with neulesta on 10/12/20 Had a chemo port placed in September CTA of chest showed: Several patchy nodular airspace and ground-glass opacities in the left lower lobe. Also showed the known pancreatic tail body segment mass and Bilateral adrenal nodularity. s/p IVF sepsis protocol and levophed. On cefazolin 2gm x 8 hours x 6 weeks will need ESA Appreciate ID evaluation Possible left lower lobe pneumonia with MSSA bacterimia. CTA of chest showed: Several patchy nodular airspace and ground-glass opacities in the left lower lobe. continue Cefazolin. Leucocytosis WBC still on the rise due to bacteria and sepsis Thrombocytopenia was wnl on 10/08/20 pre-op This is likely due to sepsis. now improving. Metabolic encephalopathy Due to sepsis Improved s/p recent TAVR: Needed the valve fixed in anticipation of surgery for the pancreatic cancer. valve is in place and working well and EF is wnl However in view of the positive blood cultures will need ESA Dr Coronado will see him in office and schedule for ESA in 1 to 2 weeks Troponinemia: likely 2/2 demand ischemia i/s/o septic shock TTE with normal EF and no WMA and EKG without ST changes, and patient without complaints of chest pain Lactic acidosis resolved Pancreatic cancer diagnosed in june 2020. Planned to get 3 cycles of chemo, TAVR, then evaluation for surgery. Patient had 1 cycle of chemo with neulesta on 10/12/20 Plan/VTE VTE Prophylaxis Ordered?: Yes VS, I&O, 24H, Fishbone Vital Signs/I&O Vital Signs Date Time Temp Pulse Resp B/P (MAP) Pulse Ox O2 Delivery O2 Flow Rate FiO2 10/27/20 08:00 97.9 72 18 128/70 (89) 98 Room Air 10/24/20 07:30 2.0 I&O- Last 24 Hours up to 6 AM 10/27/20 06:00 Intake Total 1150 ml Output Total 1280 ml Balance -130 ml Laboratory Data 24H LABS Laboratory Tests 2 10/26/20 11:32: Lab Scanned Report Miscellaneous Lab 10/26/20 15:01: C-Reactive Protein, Quantitative 4.01H 10/27/20 05:38: Nucleated Red Blood Cells % (auto) 0.0, Immature Platelet Fraction 11.2H, Anion Gap 8, Glomerular Filtration Rate > 60.0, Calcium Level 7.5L 10/27/20 07:25: Lactic Acid Level 0.8 CBC/BMP Laboratory Tests 10/27/20 05:38 Microbiology Microbiology 10/26/20 Blood Culture, Received Pending 10/26/20 Blood Culture, Received Pending 10/24/20 Blood Culture - Preliminary, Resulted No Growth after 72 hours. All specime... 10/24/20 Blood Culture - Preliminary, Resulted No Growth after 72 hours. All specime... 10/23/20 Blood Culture - Final, Complete Staphylococcus Aureus 10/23/20 Blood Culture - Final, Complete Staphylococcus Aureus Evelyn Lakhani MD Oct 27, 2020 10:57
--- NOTE | 2020-10-27 11:38 | REP ---
INDICATION: and pelvis. COMPARISON: 10/31/2010 noncontrast enhanced exam. The lung bases obtained today were compared to the prior chest CT of 10/23/2020. TECHNIQUE: Standard helical technique after the intravenous administration of 100 cc Isovue 370. Oral bowel preparatory contrast was also administered prior to the exam. FINDINGS: Small bilateral pleural effusions have developed since the last chest CT. In addition, bibasilar asymmetric densities have also developed. The nodule seen previously in the left lower lobe was not imaged during this abdominal and pelvic CT. There is cylindrical bronchiectasis status quo. The asymmetric density seen previously in the vaelrie basal segment of the left lower lobe on the prior chest CT has gotten smaller. There is mild splenomegaly. This has increased slightly compared to the prior exam. The liver, gallbladder, pancreas, and adrenal glands are essentially unchanged. There are bilateral renal parapelvic cysts which appear essentially unchanged compared to the prior exam. There is no evidence of hydronephrosis. In the interpolar region of the left kidney lateral cortex there is a subtle possible 1 cm sized enhancing lesion. This was either not perceptible or not present on the prior noncontrast enhanced CT. The bowel loops and the mesenteries are unremarkable. The abdominal aorta and para-aortic regions are within normal limits. There is no evidence of free fluid or free air. There are surgical clips in the pelvis secondary to previous prostatectomy status quo. Bone window technique throughout the exam shows spinal degenerative changes with chronic pelvic changes from previous trauma. There is an age undetermined grade 2 L2 compression fracture involving the superior endplate. IMPRESSION: 1. Small bilateral pleural effusions and likely bilateral lung base subsegmental atelectatic change with other lung base findings as described above. 2. Tiny enhancing focus in the interpolar region of the left kidney as described above and for which pre and post gadolinium enhanced renal MRI is recommended. Neoplastic change cannot be ruled out. I suppose the finding could represent a small focus of early pyelonephritis. This would need to be correlated clinically. 3. Mild splenomegaly. 4. Bilateral renal parapelvic cysts and benign low-density nodular adrenal gland thickening status quo. 5. Chronic osseous changes as described above. 6. Other findings as described above. <Electronically signed by Javon Rucker > 10/27/20 [id number]
[2020-10-27 12:00] VITALS: BP 126/58
[2020-10-27 16:00] VITALS: BP 121/90
[2020-10-27] MEDS: ASPIRIN 81 MG CHEW TABLET PO SCH (17:17)
[2020-10-27 20:00] VITALS: BP 116/58
[2020-10-28] VITALS: BP 100/55
[2020-10-28 04:00] VITALS: BP 116/61
[2020-10-28] MEDS: ceFAZolin SOD 2 GM in IV 1 EA IV SCH ×3 (05:20→22:31)
[2020-10-28 05:45] LABS: HEMATOCRIT 29.5 % (42.0-52.0); HEMOGLOBIN 10.2 g/dl (13.5-17.5); MEAN CORPUSCULAR HEMOGLOBIN 32.8 pg (27.0-33.0); MEAN CORPUSCULAR HGB CONC 34.6 g/dl (32.0-36.5); MEAN CORPUSCULAR VOLUME 94.9 fl (80.0-96.0); PLATELET COUNT, AUTOMATED 122 10^3/uL (150-450); RED BLOOD COUNT 3.11 10^6/uL (4.30-6.10)
[2020-10-28 05:47] LABS: WHITE BLOOD COUNT 37.7 10^3/uL (4.0-10.0)
[2020-10-28 06:01] LABS: BLOOD UREA NITROGEN 11 MG/DL (7-18); CALCIUM LEVEL 7.6 MG/DL (8.8-10.2); CARBON DIOXIDE LEVEL 26 MEQ/L (21-32); CHLORIDE LEVEL 109 MEQ/L (98-107); CREATININE FOR GFR 0.56 MG/DL (0.70-1.30); GLOMERULAR FILTRATION RATE > 60.0 (>35); GLUCOSE, FASTING 98 MG/DL (70-100); POTASSIUM SERUM 3.4 MEQ/L (3.5-5.1); SODIUM LEVEL 142 MEQ/L (136-145)
[2020-10-28 07:34] VITALS: BP 116/62
[2020-10-28] MEDS ORDERED: POTASSIUM CHLORIDE 10 MEQ SR TABLET PO ONE (08:05)
[2020-10-28] MEDS: LACTOBACILLUS ACIDOPHILUS CAP (BACID) PO SCH ×2 (08:57→20:37)
[2020-10-28] MEDS: MULTIVITAMINS/MINERALS THERAP 1 TAB PO SCH (08:57)
[2020-10-28 09:06] LABS: C REACTIVE PROTEIN QUANTITATIV 1.98 MG/DL (0.00-0.30)
[2020-10-28] MEDS ORDERED: SLF 3 ML SYR IV PRN (09:55)
--- NOTE | 2020-10-28 10:53 | IPNPDOC ---
Subjective Date Seen The patient was seen on 10/28/20. Subjective Chief Complaint/HPI No complaints this morning. Feeling better wants to go home. Reports that appetite is a little better. Also reports 2 episodes of diarrhea overnight. No fever or chills no abdominal pain no nausea or vomiting. White count continues to go up up to 37,000 today. CRP is improved Objective Physical Examination General Exam: Positive: Alert, Cooperative, No Acute Distress Eye Exam: Positive: PERRLA, Conjunctiva & lids normal, EOMI; Negative: Sclera icteric ENT Exam: Positive: Atraumatic, Mucous membr. moist/pink, Pharynx Normal Neck Exam: Positive: Supple; Negative: JVD, thyromegaly Chest Exam: Positive: Normal air movement, Other (Few basal crackles) Heart Exam: Positive: Tachycardic, Irregular Rhythm, Normal S1, Normal S2; Negative: Murmurs, Rubs Abdomen Exam: Positive: Normal bowel sounds, Soft; Negative: Tenderness Extremity Exam: Negative: Clubbing, Cyanosis, Edema Neuro Exam: Positive: Normal Speech, Strength at 5/5 X4 ext, Normal Tone Psych Exam: Positive: Memory Intact, Oriented x 3 Assessment /Plan Assessment 80 yo M with history of critical s/p TAVR on 10/19/20, diagnosis of pancreatic cancer in June 2020 pending to be started on FOLFOXIRI by Dr. Hernández and otherwise also follows at [place], otherwise was previously healthy, walked 5miles/day, who was doing well after his TAVR but developed rigors, fevers and weakness now admitted to the ICU for septic shock with Staph bacteremia. Septic shock: MSSA bacterimia Has a chemoport and bioprosthetic aortic valve in place. Patient had a WBC of 22K even before TAVR. This may have been the effect of Neulesta. Patient had 1 cycle of chemo with neulesta from 10/12/20- 10/14/20 CTA of chest showed: Several patchy nodular airspace and ground-glass opacities in the left lower lobe. CT abdomen: Left kidney 1 cm enhancing lesion ? malignant ? focal pyelonephritis Also showed the known pancreatic tail body segment mass and Bilateral adrenal nodularity. On cefazolin 2gm x 8 hours x 6 weeks will need ESA , Dr Coronado to schedule as outpatient. Appreciate ID evaluation Possible left lower lobe pneumonia with MSSA bacteremia. CTA of chest 10/23 showed: Several patchy nodular airspace and ground-glass opacities in left lower lobe CT abdomen 10/27/2020: Small bilateral pleural effusions have developed since the last chest CT. In addition, bibasilar asymmetric densities have also developed. The nodule seen previously in the left lower lobe was not imaged during this abdominal and pelvic CT. There is cylindrical bronchiectasis status quo. The asymmetric density seen previously in the valerie basal segment of the left lower lobe on the prior chest CT has gotten smaller. continue Cefazolin. Abnormal lesion in Left kidney Seen in CT abdomen with contrast. Could be malignant versus early focal pyelonephritis Radiologist suggested MRI of the kidney with and without contrast. Leucocytosis WBC still on the rise will check for c. diff if diarrhea continues. Thrombocytopenia was wnl on 10/08/20 pre-op This is likely due to sepsis and chemotherapy. now improving. Metabolic encephalopathy Due to sepsis Improved s/p recent TAVR: Needed the valve fixed in anticipation of surgery for the pancreatic cancer. valve is in place and working well and EF is wnl However in view of the positive blood cultures will need ESA Dr Coronado will see him in office and schedule for ESA in 1 to 2 weeks Troponinemia: likely 2/2 demand ischemia i/s/o septic shock TTE with normal EF and no WMA and EKG without ST changes, and patient without complaints of chest pain Lactic acidosis resolved Pancreatic cancer diagnosed in june 2020. Planned to get 3 cycles of chemo, TAVR, then evaluation for surgery. Patient had 1 cycle of chemo with neulesta on 10/12/20 - 10/14/20 L2 vertebral compression fracture chronic. No pain. Plan/VTE VTE Prophylaxis Ordered?: Yes VS, I&O, 24H, Fishbone Vital Signs/I&O Vital Signs Date Time Temp Pulse Resp B/P (MAP) Pulse Ox O2 Delivery O2 Flow Rate FiO2 10/28/20 07:34 97.0 74 18 116/62 (80) 98 Room Air 10/24/20 07:30 2.0 I&O- Last 24 Hours up to 6 AM 10/28/20 05:59 Intake Total 900 ml Output Total 850 ml Balance 50 ml Laboratory Data 24H LABS Laboratory Tests 2 10/28/20 05:15: Nucleated Red Blood Cells % (auto) 0.0, Anion Gap 7L, Glomerular Filtration Rate > 60.0, Calcium Level 7.6L, C-Reactive Protein, Quantitative 1.98H CBC/BMP Laboratory Tests 10/28/20 05:15 Microbiology Microbiology 10/26/20 Blood Culture - Preliminary, Resulted No growth after 24 hours . All specim... 10/26/20 Blood Culture - Preliminary, Resulted No growth after 24 hours . All specim... 10/24/20 Blood Culture - Preliminary, Resulted No Growth after 72 hours. All specime... 10/24/20 Blood Culture - Preliminary, Resulted No Growth after 72 hours. All specime... 10/23/20 Blood Culture - Final, Complete Staphylococcus Aureus 10/23/20 Blood Culture - Final, Complete Staphylococcus Aureus Evelyn Lakhani MD Oct 28, 2020 10:53
[2020-10-28 11:31] VITALS: BP 101/55
[2020-10-28] MEDS: SLF 3 ML SYR IV SCH ×2 (15:26→22:31)
[2020-10-28] MEDS: ASPIRIN 81 MG CHEW TABLET PO SCH (19:20)
[2020-10-28 20:00] VITALS: BP_SYST 119; BP_SYST 151; BP_DIAS 62; BP_DIAS 81
[2020-10-28 20:50] VITALS: BP 151/81
[2020-10-29 04:00] VITALS: BP 138/68
[2020-10-29] MEDS: ceFAZolin SOD 2 GM in IV 1 EA IV SCH ×3 (05:23→21:47)
[2020-10-29] MEDS: SLF 3 ML SYR IV SCH ×3 (05:25→21:48)
[2020-10-29 07:07] VITALS: BP 134/69
[2020-10-29 09:20] VITALS: BP 105/68
[2020-10-29 09:22] LABS: HEMATOCRIT 35.1 % (42.0-52.0); HEMOGLOBIN 11.9 g/dl (13.5-17.5); MEAN CORPUSCULAR HEMOGLOBIN 32.3 pg (27.0-33.0); MEAN CORPUSCULAR HGB CONC 33.9 g/dl (32.0-36.5); MEAN CORPUSCULAR VOLUME 95.4 fl (80.0-96.0); PLATELET COUNT, AUTOMATED 202 10^3/uL (150-450); RED BLOOD COUNT 3.68 10^6/uL (4.30-6.10)
[2020-10-29 09:25] LABS: WHITE BLOOD COUNT 52.5 10^3/uL (4.0-10.0)
[2020-10-29] MEDS: LACTOBACILLUS ACIDOPHILUS CAP (BACID) PO SCH ×2 (09:40→21:47)
[2020-10-29] MEDS: MULTIVITAMINS/MINERALS THERAP 1 TAB PO SCH (09:40)
[2020-10-29 09:51] LABS: BLOOD UREA NITROGEN 9 MG/DL (7-18); CALCIUM LEVEL 8.1 MG/DL (8.8-10.2); CARBON DIOXIDE LEVEL 25 MEQ/L (21-32); CHLORIDE LEVEL 106 MEQ/L (98-107); CREATININE FOR GFR 0.68 MG/DL (0.70-1.30); GLOMERULAR FILTRATION RATE > 60.0 (>35); GLUCOSE, FASTING 106 MG/DL (70-100); POTASSIUM SERUM 3.6 MEQ/L (3.5-5.1); SODIUM LEVEL 140 MEQ/L (136-145)
[2020-10-29 10:42] LABS: ATYPICAL LYMPH 1 % (0-5); BASOPHILS 1 % (0-1); LYMPHOCYTES 3 % (16-44); METAMYELOCYTES 5 % (0-0); MONOCYTES 7 % (0-5); MYELOCYTES 3 % (0-0); NEUTROPHILS 75 % (28-66); PLATELET ESTIMATE DECREASED (NORMAL)
[2020-10-29 10:49] LABS: POLYCHROMASIA 1+
[2020-10-29 14:00] VITALS: BP 117/72
--- NOTE | 2020-10-29 15:33 | DS.PDOC ---
Discharge Summary General Date of Admission Oct 23, 2020 at 09:00 Date of Discharge 10/30/20 Discharge Summary PROCEDURES PERFORMED DURING STAY: [None]. DISCHARGE DIAGNOSES: Septic shock MSSA bacteremia rule out infective endocarditis will need ESA. Left lower lobe pneumonia Acute metabolic encephalopathy now resolved Persistent leukocytosis due to Neulasta on 10/14/2020 Critical aortic stenosis status post TAVR on 10/19/2020 Pancreatic cancer status post 1 cycle of chemo on 10/12/2020 Abnormal lesion left kidney follow-up with oncology Thrombocytopenia chemo related now resolved Chronic L2 vertebral compression fracture COMPLICATIONS/CHIEF COMPLAINT: Pna,Sepsis. HOSPITAL COURSE: 80 yo M with history of critical s/p TAVR on 10/19/20, diagnosis of pancreatic cancer in June 2020 pending to be started on FOLFOXIRI by Dr. Hernández and otherwise also follows at [place], otherwise was previously healthy, walked 5miles/day, who was doing well after his TAVR but developed rigors, fevers and weakness now admitted to the ICU for septic shock with Staph bacteremia. Septic shock: MSSA bacterimia Has a chemoport and bioprosthetic aortic valve in place. Patient had a WBC of 22K even before TAVR. This may have been the effect of Neulesta. Patient had 1 cycle of chemo with neulesta from 10/12/20- 10/14/20 CTA of chest showed: Several patchy nodular airspace and ground-glass opacities in the left lower lobe. CT abdomen: Left kidney 1 cm enhancing lesion ? malignant ? focal pyelonephritis Also showed the known pancreatic tail body segment mass and Bilateral adrenal nodularity. On cefazolin 2gm x 8 hours x 6 weeks last date of antibiotics is December 04, 2020 will need ESA , Dr Coronado to schedule as outpatient. Appreciate ID evaluation Possible left lower lobe pneumonia with MSSA bacteremia. CTA of chest 10/23 showed: Several patchy nodular airspace and ground-glass opacities in left lower lobe CT abdomen 10/27/2020: Small bilateral pleural effusions have developed since the last chest CT. In addition, bibasilar asymmetric densities have also developed. The nodule seen previously in the left lower lobe was not imaged during this abdominal and pelvic CT. There is cylindrical bronchiectasis status quo. The asymmetric density seen previously in the valerie basal segment of the left lower lobe on the prior chest CT has gotten smaller. continue Cefazolin. Abnormal lesion in Left kidney Seen in CT abdomen with contrast. Could be malignant versus early focal pyelonephritis Radiologist suggested MRI of the kidney with and without contrast. Leucocytosis WBC still on the rise will check for c. diff if diarrhea continues. Thrombocytopenia was wnl on 10/08/20 pre-op This is likely due to sepsis and chemotherapy. now improving. Metabolic encephalopathy Due to sepsis Improved s/p recent TAVR: Needed the valve fixed in anticipation of surgery for the pancreatic cancer. valve is in place and working well and EF is wnl However in view of the positive blood cultures will need ESA Dr Coronado will see him in office and schedule for ESA in 1 to 2 weeks Troponinemia: likely 2/2 demand ischemia i/s/o septic shock TTE with normal EF and no WMA and EKG without ST changes, and patient without complaints of chest pain Lactic acidosis resolved Pancreatic cancer diagnosed in june 2020. Planned to get 3 cycles of chemo, TAVR, then evaluation for surgery. Patient had 1 cycle of chemo with neulesta on 10/12/20 - 10/14/20 L2 vertebral compression fracture chronic. No pain. DISCHARGE MEDICATIONS: Please see below. ALLERGIES: Please see below. PHYSICAL EXAMINATION ON DISCHARGE: VITAL SIGNS: Please see below. General Exam: Positive: Alert, Cooperative, No Acute Distress Eye Exam: Positive: PERRLA, Conjunctiva & lids normal, EOMI; Negative: Sclera icteric ENT Exam: Positive: Atraumatic, Mucous membr. moist/pink, Pharynx Normal Neck Exam: Positive: Supple; Negative: JVD, thyromegaly Chest Exam: Positive: Normal air movement, Other (Few basal crackles) Heart Exam: Positive: Tachycardic, Irregular Rhythm, Normal S1, Normal S2; Negative: Murmurs, Rubs Abdomen Exam: Positive: Normal bowel sounds, Soft; Negative: Tenderness Extremity Exam: Negative: Clubbing, Cyanosis, Edema Neuro Exam: Positive: Normal Speech, Strength at 5/5 X4 ext, Normal Tone Psych Exam: Positive: Memory Intact, Oriented x 3 LABORATORY DATA: Please see below. IMAGING: PROGNOSIS: ACTIVITY: [As tolerated]. DIET: As tolerated DISCHARGE PLAN: Home with services with IV antibiotics DISCHARGE INSTRUCTIONS: Follow-up Dr. Coronado in [address] Hernández in [address] Sena in 4 weeks ITEMS TO FOLLOWUP ON ON OUTPATIENT: Weekly CBC CMP CRP and ESR. Results to be sent to Dr. Sena's office DISCHARGE CONDITION: [Stable]. TIME SPENT ON DISCHARGE: 35 minutes. Vital Signs/I&Os Vital Signs Date Time Temp Pulse Resp B/P (MAP) Pulse Ox O2 Delivery O2 Flow Rate FiO2 10/29/20 14:00 99.5 57 16 117/72 (87) 90 Room Air 10/24/20 07:30 2.0 I&O- Last 24 Hours up to 6 AM 10/29/20 06:00 Intake Total 360 ml Output Total 1525 ml Balance -1165 ml Laboratory Data Labs 24H Laboratory Tests 2 10/29/20 09:07: Immature Granulocyte % (Auto) , Neutrophils (%) (Auto) , Nucleated Red Blood Cells % (auto) 0.0, Neutrophils 75H, Band Neutrophils 5, Lymphocytes (Manual) 3L, Monocytes (Manual) 7H, Basophils (Manual) 1, Metamyelocytes 5H, Myelocytes 3H, Atypical Lymphocytes 1, Polychromasia 1+, Platelet Estimate DECREASED, Anion Gap 9, Glomerular Filtration Rate > 60.0, Calcium Level 8.1L CBC/BMP Laboratory Tests 10/29/20 09:07 Microbiology Microbiology 10/26/20 Blood Culture - Preliminary, Resulted No Growth after 48 hours. All Specime... 10/26/20 Blood Culture - Preliminary, Resulted No Growth after 72 hours. All specime... 10/24/20 Blood Culture - Final, Complete NO GROWTH AFTER 5 DAYS 10/24/20 Blood Culture - Final, Complete NO GROWTH AFTER 5 DAYS 10/23/20 Blood Culture - Final, Complete Staphylococcus Aureus 10/23/20 Blood Culture - Final, Complete Staphylococcus Aureus Discharge Medications Scheduled Aspirin (Aspirin) 81 Mg Tab.chew, 81 MG PO QPM, (Reported) Cholecalciferol (Vitamin D3) (Vitamin D3) 1,000 Unit Tablet, 1,000 UNITS PO QPM, (Reported) Multivitamin (Super Multivitamin) 1 Each Tablet, 1 TAB PO QPM, (Reported) Scheduled PRN Ondansetron HCl (Ondansetron HCl) 8 Mg Tablet, 8 MG PO Q8H PRN for NAUSEA OR VOMITING, (Reported) Prochlorperazine Maleate (Prochlorperazine Maleate) 10 Mg Tablet, 10 MG PO Q8H PRN for NAUSEA OR VOMITING, (Reported) Allergies Coded Allergies: Penicillins (Unverified Allergy, Severe, RESPIRATORY PROBLEMS, 10/12/20) Evelyn Lakhani MD Oct 29, 2020 15:33
[2020-10-29] MEDS: ASPIRIN 81 MG CHEW TABLET PO SCH (18:32)
[2020-10-29 22:00] VITALS: BP 117/69
[2020-10-30] MEDS: ceFAZolin SOD 2 GM in IV 1 EA IV SCH (05:13)
[2020-10-30] MEDS: SLF 3 ML SYR IV SCH (05:14)
[2020-10-30 05:27] LABS: HEMATOCRIT 32.3 % (42.0-52.0); HEMOGLOBIN 10.9 g/dl (13.5-17.5); MEAN CORPUSCULAR HEMOGLOBIN 32.2 pg (27.0-33.0); MEAN CORPUSCULAR HGB CONC 33.7 g/dl (32.0-36.5); MEAN CORPUSCULAR VOLUME 95.6 fl (80.0-96.0); PLATELET COUNT, AUTOMATED 217 10^3/uL (150-450); RED BLOOD COUNT 3.38 10^6/uL (4.30-6.10)
[2020-10-30 05:29] LABS: WHITE BLOOD COUNT 49.3 10^3/uL (4.0-10.0)
[2020-10-30 05:42] LABS: BLOOD UREA NITROGEN 9 MG/DL (7-18); CALCIUM LEVEL 8.1 MG/DL (8.8-10.2); CARBON DIOXIDE LEVEL 27 MEQ/L (21-32); CHLORIDE LEVEL 107 MEQ/L (98-107); CREATININE FOR GFR 0.67 MG/DL (0.70-1.30); GLOMERULAR FILTRATION RATE > 60.0 (>35); GLUCOSE, FASTING 113 MG/DL (70-100); POTASSIUM SERUM 3.8 MEQ/L (3.5-5.1); SODIUM LEVEL 140 MEQ/L (136-145)
[2020-10-30 06:00] VITALS: BP 117/65
[2020-10-30 06:21] LABS: EOSINOPHILS 1 % (0-3); LYMPHOCYTES 4 % (16-44); METAMYELOCYTES 6 % (0-0); MONOCYTES 5 % (0-5); MYELOCYTES 3 % (0-0); NEUTROPHILS 77 % (28-66)
[2020-10-30 06:22] LABS: PLATELET ESTIMATE NORMAL (NORMAL)
[2020-10-30] MEDS: LACTOBACILLUS ACIDOPHILUS CAP (BACID) PO SCH (08:01)
[2020-10-30] MEDS: MULTIVITAMINS/MINERALS THERAP 1 TAB PO SCH (08:01)
== END 2020-10-30 12:05 | disposition home health service (06) | DRG 871 ==
LOC: M ED 06:19 → M ED INP 09:00 → ENRESERV 09:35 → M ICU 10:09 → M PCU 10-26 13:00 → M MS5PR 10-29 09:19
PROVIDERS: ADMIT Internal Medicine; ATTEND Internal Medicine Nephrology
DX: A41.01 Sepsis due to Methicillin susceptible Staphylococcus aureus (principal); R65.21 Severe sepsis with septic shock; J18.9 Pneumonia, unspecified organism; G93.41 Metabolic encephalopathy; I24.8 Other forms of acute ischemic heart disease; C25.9 Malignant neoplasm of pancreas, unspecified; D69.6 Thrombocytopenia, unspecified; E87.5 Hyperkalemia; Z87.891 Personal history of nicotine dependence; Z79.82 Long term (current) use of aspirin; Z79.899 Other long term (current) drug therapy; Z88.0 Allergy status to penicillin; Z92.21 Personal history of antineoplastic chemotherapy

== ENCOUNTER → 2020-11-02 | Outpatient (REF) | payer MEDICARE, OTHER ==
[~2020-11-02] MED LIST changes: +ASPI81CH2 PO; +D31000TA2 PO
[2020-11-02 11:45] LABS: HEMATOCRIT 35.7 % (42.0-52.0); HEMOGLOBIN 11.9 g/dl (13.5-17.5); MEAN CORPUSCULAR HEMOGLOBIN 32.9 pg (27.0-33.0); MEAN CORPUSCULAR HGB CONC 33.3 g/dl (32.0-36.5); MEAN CORPUSCULAR VOLUME 98.6 fl (80.0-96.0); PLATELET COUNT, AUTOMATED 249 10^3/uL (150-450); RED BLOOD COUNT 3.62 10^6/uL (4.30-6.10)
[2020-11-02 11:47] LABS: WHITE BLOOD COUNT 56.8 10^3/uL (4.0-10.0)
[2020-11-02 12:21] LABS: ERYTHROCYTE SEDIMENTATION RATE 24 mm/hr (0-20)
[2020-11-02 12:54] LABS: BLOOD UREA NITROGEN 13 MG/DL (7-18); C REACTIVE PROTEIN QUANTITATIV 0.36 MG/DL (0.00-0.30); CALCIUM LEVEL 8.6 MG/DL (8.8-10.2); CARBON DIOXIDE LEVEL 24 MEQ/L (21-32); CHLORIDE LEVEL 103 MEQ/L (98-107); GLOMERULAR FILTRATION RATE > 60.0 (>35); GLUCOSE, FASTING 116 MG/DL (70-100); SODIUM LEVEL 137 MEQ/L (136-145)
== END ==
LOC: M SHH 11:13
PROVIDERS: ATTEND Internal Medicine Infectious Disease
DX: R78.81 Bacteremia (principal); B95.62 Methicillin resistant Staphylococcus aureus infection as the cause of diseases classified elsewhere

== ENCOUNTER → 2020-11-10 | Outpatient (REF) | payer MEDICARE, OTHER ==
[~2020-11-10] MED LIST changes: +CEPH125S PO
[2020-11-10 13:54] LABS: HEMATOCRIT 37.3 % (42.0-52.0); HEMOGLOBIN 12.3 g/dl (13.5-17.5); MEAN CORPUSCULAR HEMOGLOBIN 32.8 pg (27.0-33.0); MEAN CORPUSCULAR VOLUME 99.5 fl (80.0-96.0); PLATELET COUNT, AUTOMATED 147 10^3/uL (150-450); RED BLOOD COUNT 3.75 10^6/uL (4.30-6.10)
[2020-11-10 14:24] LABS: BLOOD UREA NITROGEN 15 MG/DL (7-18); C REACTIVE PROTEIN QUANTITATIV 0.54 MG/DL (0.00-0.30); CALCIUM LEVEL 8.8 MG/DL (8.8-10.2); CARBON DIOXIDE LEVEL 24 MEQ/L (21-32); CHLORIDE LEVEL 102 MEQ/L (98-107); CREATININE FOR GFR 0.78 MG/DL (0.70-1.30); GLOMERULAR FILTRATION RATE > 60.0 (>35); GLUCOSE, FASTING 134 MG/DL (70-100); POTASSIUM SERUM 3.5 MEQ/L (3.5-5.1); SODIUM LEVEL 137 MEQ/L (136-145)
[2020-11-10 14:32] LABS: ERYTHROCYTE SEDIMENTATION RATE 28 mm/hr (0-20)
== END ==
LOC: M SHH 13:22
PROVIDERS: ATTEND Internal Medicine Infectious Disease
DX: R78.81 Bacteremia (principal); B95.62 Methicillin resistant Staphylococcus aureus infection as the cause of diseases classified elsewhere

== ENCOUNTER → 2020-11-16 | Outpatient (REF) | payer MEDICARE, OTHER ==
[2020-11-16 11:54] LABS: HEMATOCRIT 34.6 % (42.0-52.0); HEMOGLOBIN 11.3 g/dl (13.5-17.5); MEAN CORPUSCULAR HEMOGLOBIN 32.4 pg (27.0-33.0); MEAN CORPUSCULAR HGB CONC 32.7 g/dl (32.0-36.5); MEAN CORPUSCULAR VOLUME 99.1 fl (80.0-96.0); RED BLOOD COUNT 3.49 10^6/uL (4.30-6.10); WHITE BLOOD COUNT 16.1 10^3/uL (4.0-10.0)
[2020-11-16 12:51] LABS: ERYTHROCYTE SEDIMENTATION RATE 27 mm/hr (0-20)
[2020-11-16 13:06] LABS: PLATELET COUNT, AUTOMATED 72 10^3/uL (150-450)
[2020-11-16 15:28] LABS: BLOOD UREA NITROGEN 13 MG/DL (7-18); C REACTIVE PROTEIN QUANTITATIV 0.44 MG/DL (0.00-0.30); CALCIUM LEVEL 8.6 MG/DL (8.8-10.2); CARBON DIOXIDE LEVEL 26 MEQ/L (21-32); CHLORIDE LEVEL 104 MEQ/L (98-107); CREATININE FOR GFR 0.72 MG/DL (0.70-1.30); GLOMERULAR FILTRATION RATE > 60.0 (>35); GLUCOSE, FASTING 174 MG/DL (70-100); POTASSIUM SERUM 3.7 MEQ/L (3.5-5.1); SODIUM LEVEL 138 MEQ/L (136-145)
== END ==
LOC: M LAB REF 11:34
PROVIDERS: ATTEND Internal Medicine Infectious Disease
DX: R78.81 Bacteremia (principal); B95.62 Methicillin resistant Staphylococcus aureus infection as the cause of diseases classified elsewhere

== ENCOUNTER → 2020-11-21 | Outpatient (CLI) | payer MEDICARE, OTHER ==
[~2020-11-21] MED LIST changes: +HEPA10PFSY IV; +SLF IV
== END ==
LOC: M LABSMTC 10:24
PROVIDERS: ATTEND Anesthesiology
DX: Z01.812 Encounter for preprocedural laboratory examination (principal); Z20.822 Contact with and (suspected) exposure to COVID-19

== ENCOUNTER → 2020-11-23 | Outpatient (REF) | payer MEDICARE, OTHER ==
[2020-11-23 11:43] LABS: HEMATOCRIT 37.9 % (42.0-52.0); MEAN CORPUSCULAR HEMOGLOBIN 34.7 pg (27.0-33.0); MEAN CORPUSCULAR HGB CONC 31.7 g/dl (32.0-36.5); MEAN CORPUSCULAR VOLUME 109.5 fl (80.0-96.0); PLATELET COUNT, AUTOMATED 109 10^3/uL (150-450); RED BLOOD COUNT 3.46 10^6/uL (4.30-6.10); WHITE BLOOD COUNT 14.6 10^3/uL (4.0-10.0)
[2020-11-23 12:07] LABS: BLOOD UREA NITROGEN 16 MG/DL (7-18); C REACTIVE PROTEIN QUANTITATIV 0.47 MG/DL (0.00-0.30); CALCIUM LEVEL 9.2 MG/DL (8.8-10.2); CARBON DIOXIDE LEVEL 24 MEQ/L (21-32); CHLORIDE LEVEL 102 MEQ/L (98-107); CREATININE FOR GFR 0.88 MG/DL (0.70-1.30); GLOMERULAR FILTRATION RATE > 60.0 (>35); GLUCOSE, FASTING 203 MG/DL (70-100); POTASSIUM SERUM 3.8 MEQ/L (3.5-5.1); SODIUM LEVEL 136 MEQ/L (136-145)
[2020-11-23 12:21] LABS: ERYTHROCYTE SEDIMENTATION RATE 14 mm/hr (0-20)
== END ==
LOC: M SHH 10:45
PROVIDERS: ATTEND Internal Medicine Infectious Disease
DX: R78.81 Bacteremia (principal); B95.62 Methicillin resistant Staphylococcus aureus infection as the cause of diseases classified elsewhere

== ENCOUNTER 2020-11-26 06:01 | Day surgery (SDC) | payer MEDICARE, OTHER ==
[~2020-11-26] VITALS: Ht 175.3 cm; Wt 59.9 kg
[~2020-11-26 06:01] MED LIST changes: +LR 1,000 ML IV ONE
[2020-11-26] MEDS ORDERED: MIDAZOLAM INJ 2MG/2ML VIAL (J2250 PER 1MG) As Ordered ONE (06:57)
[2020-11-26] MEDS ORDERED: fentaNYL 100 MCG/2 ML INJECTION (J3010) As Ordered ONE (06:58)
[2020-11-26] MEDS ORDERED: propofoL 200 MG/20 ML VIAL As Ordered ONE (07:01)
[2020-11-26] MEDS ORDERED: LIDOCAINE 2% 100MG/5ML SDV (FOR ANES.) As Ordered ONE (07:03)
[2020-11-26] MEDS ORDERED: LIDOCAINE VISCOUS 2% SOLN 15ML UDC As Ordered ONE (07:08)
[2020-11-26] MEDS ORDERED: CETACAINE SPRAY 5GM As Ordered ONE (07:08)
[2020-11-26] MEDS ORDERED: ONDANSETRON 4MG/2ML VIAL IV PRN (08:30)
[2020-11-26] MEDS ORDERED: LR 1,000 ML IV SCH (08:30)
[2020-11-26 08:35] VITALS: BP 142/65
--- NOTE | 2020-11-27 07:09 | T-ECHO ---
DATE OF PROCEDURE: 11/26/2020 INDICATION: Staphylococcus bacteremia in patient with a history of transcatheter aortic valve replacement (TAVR) implanted in October 2020. PROCEDURE: Transesophageal echocardiogram. ANESTHESIOLOGY: Yadira Michael CRNA BRIEF HISTORY: Mr. Beal is a delightful 80-year-old man who quite unfortunately was almost simultaneously diagnosed with severe aortic stenosis and also pancreatic cancer. He was initially felt to be a good candidate for Whipple procedure, and consequently transcatheter aortic valve replacement was performed on October 29. He subsequently received chemotherapy as a neoadjuvant treatment for planned Whipple procedure. Unfortunately he was hospitalized with sepsis-like syndrome, and his blood cultures were positive for Staphylococcus aureus. He was started on antibiotics and clinically has done well, but nevertheless there is suspicion for endocarditis based on clinical circumstances. I spoke with the patient about the procedure again on the morning of the procedure after it was previously discussed on outpatient basis. He had already signed consent during his office visit. PROCEDURE NOTE: Procedure was performed in the operating room. Patient presented in a fasting condition. After appropriate time-out was taken and all appropriate monitors were applied, he was positioned in left lateral decubital position. Bite block was placed. After anesthesiology administered sedation, a probe was introduced into esophagus and later stomach without difficulty. After appropriate images were taken, it was withdrawn. There were no immediate complications, and patient tolerated the procedure well. FINDINGS: Normal left ventricular systolic function without any segmental wall motion abnormalities and estimated EF 60%-65%. Normal RV systolic function. There are very prominent degenerative abnormalities of mitral valve with very heavy mitral annular calcifications, especially at the base of posterior mitral leaflets, but the leaflets themselves have normal mobility, and there is no definite visualized vegetation. Mild mitral insufficiency based on color Doppler imaging. Tricuspid valve appears normal. There is only trace insufficiency, and calculated pulmonary artery pressure is within normal limits.. Pulmonic valve was poorly visualized, because it was shadowed from the aortic valve, but based on limited views it appears grossly normal. Trace insufficiency of the valve is noted. Aortic valve is TAVR implant. Based on views it appears structurally normal. No vegetations were seen. There is trace perivalvular insufficiency and no significant stenosis. Mean gradient across the valve was 11 and peak gradient 22 mmHg. Atrial septum is relatively thick, but it does appear without shunt based on 2D and color Doppler imaging. There is normal flow in both left and right-sided pulmonary veins. Left atrial appendage is relatively small and free of thrombi. There is mild atherosclerosis in the visualized segment of ascending aorta, aortic arch, and descending aorta. CONCLUSIONS: 1. Preserved LV systolic function. 2. Preserved RV systolic function. 3. TAVR in aortic position with no stenosis and trace perivalvular insufficiency. 4. Very prominent degenerative abnormalities of mitral valve with mitral annular calcifications and mild mitral insufficiency. 5. Trace tricuspid insufficiency. Normal pulmonary artery pressure. 6. Pulmonic valve was poorly visualized. 7. Intact atrial septum. 8. Normal flow in pulmonary veins. 9. Mild atherosclerosis of thoracic aorta. 10. No definite visualized vegetations in setting of very prominent degenerative valvular abnormalities. COMMENTS: Patient will complete his current course of antibiotics and will be watched clinically. I do not see any definite evidence of endocarditis, which is very welcome news. LEIGHAD
== END 2020-11-26 08:48 | disposition home or self-care (01) ==
LOC: M SDC 06:01
PROVIDERS: ATTEND Internal Medicine Cardiovascular Disease
DX: Z95.4 Presence of other heart-valve replacement (principal); B95.61 Methicillin susceptible Staphylococcus aureus infection as the cause of diseases classified elsewhere; Z88.0 Allergy status to penicillin
CPT/HCPCS: 93306; J2250; J3010

== ENCOUNTER → 2020-11-30 | Outpatient (REF) | payer MEDICARE, OTHER ==
[~2020-11-30] MED LIST changes: -LR 1,000 ML IV ONE
[2020-11-30 13:00] LABS: HEMATOCRIT 35.8 % (42.0-52.0); HEMOGLOBIN 11.9 g/dl (13.5-17.5); MEAN CORPUSCULAR HEMOGLOBIN 33.1 pg (27.0-33.0); MEAN CORPUSCULAR HGB CONC 33.2 g/dl (32.0-36.5); MEAN CORPUSCULAR VOLUME 99.7 fl (80.0-96.0); PLATELET COUNT, AUTOMATED 171 10^3/uL (150-450); RED BLOOD COUNT 3.59 10^6/uL (4.30-6.10); WHITE BLOOD COUNT 8.3 10^3/uL (4.0-10.0)
[2020-11-30 13:25] LABS: ERYTHROCYTE SEDIMENTATION RATE 19 mm/hr (0-20)
[2020-11-30 13:30] LABS: BLOOD UREA NITROGEN 13 MG/DL (7-18); C REACTIVE PROTEIN QUANTITATIV 0.53 MG/DL (0.00-0.30); CALCIUM LEVEL 8.8 MG/DL (8.8-10.2); CARBON DIOXIDE LEVEL 25 MEQ/L (21-32); CHLORIDE LEVEL 103 MEQ/L (98-107); CREATININE FOR GFR 0.76 MG/DL (0.70-1.30); GLOMERULAR FILTRATION RATE > 60.0 (>35); GLUCOSE, FASTING 119 MG/DL (70-100); POTASSIUM SERUM 3.9 MEQ/L (3.5-5.1); SODIUM LEVEL 137 MEQ/L (136-145)
== END ==
LOC: M LAB REF 11:55
PROVIDERS: ATTEND Internal Medicine Infectious Disease
DX: R78.81 Bacteremia (principal); B95.62 Methicillin resistant Staphylococcus aureus infection as the cause of diseases classified elsewhere

== ENCOUNTER → 2020-11-30 | Outpatient (CLI) | payer MEDICARE, OTHER ==
--- NOTE | 2020-11-30 09:09 | REP ---
INDICATION: PAIN. COMPARISON: None. TECHNIQUE: AP and lateral views of the right os calcis. FINDINGS: AP and lateral views of the right calcaneus demonstrate diffuse soft tissue vascular calcification. There is a tiny plantar spur on the calcaneus. No erosive changes seen. Bones, joints, and soft tissues are otherwise unremarkable. No fracture or subluxation is seen. No opaque foreign body noted. IMPRESSION: Tiny plantar spur. Prominent vascular calcification. No traumatic or other acute bony abnormality. <Electronically signed by Antony Leavitt > 11/30/20 [id number]
== END ==
LOC: M WUC 08:04
PROVIDERS: ATTEND Physician Assistant
DX: M79.671 Pain in right foot (principal); R78.81 Bacteremia; B95.62 Methicillin resistant Staphylococcus aureus infection as the cause of diseases classified elsewhere

== ENCOUNTER → 2020-12-03 | Outpatient (CLI) | payer MEDICARE, OTHER ==
[~2020-12-03] MED LIST changes: +GASTROGRAFIN SOLUTION 30ML (Q9963) As Ordered ONE; +ISOVUE-370 76% 100ML VIAL As Ordered ONE
--- NOTE | 2020-12-03 14:02 | REP ---
INDICATION: PANCREATIC CA COMPARISON: None. TECHNIQUE: 10/23/2020 CT angio chest in the latest prior. FINDINGS: There is no mediastinal or hilar adenopathy. There are no pleural or pericardial effusions. The imaged osseous structures are unchanged. Evaluation of the lung ignacio shows an unchanged asymmetric density in the valerie basal segment of the left lower lobe measuring 1.9 x 0.9 cm. The scattered ground-glass opacities seen on the prior exam have resolved. There is stable appearing cylindrical bronchiectasis. There is a stable 4 mm size nodule in the left lower lobe. No new abnormal nodules, masses, or opacities have developed. IMPRESSION: 1. Unchanged asymmetric density in the valerie basal segment of the left lower lobe as described above. Images of lung bases obtained during abdominal and pelvic CT scanning of 10/31/2010 show the finding today to represent a change. The finding appears to have increased in size and density when compared to outside CT angio chest 06/18/2020 also reviewed today. Neoplastic change cannot be ruled out. According to the revised Fleischner society criteria PET-CT is in order. 2. 4 mm size nodule seen in the superior segment of the left lower lobe which is unchanged from the 06/18/2020 exam. 3. Resolved ground-glass opacities seen previously. 4. Stable appearing cylindrical bronchiectasis. <Electronically signed by Javon Rucker > 12/03/20 0624
== END ==
LOC: M RAD 11:33
PROVIDERS: ATTEND Specialist
DX: C25.9 Malignant neoplasm of pancreas, unspecified (principal)
CPT/HCPCS: 71260; 74177; Q9963; Q9967

== ENCOUNTER → 2020-12-28 | Outpatient (CLI) | payer MEDICARE, OTHER ==
[~2020-12-28] MED LIST changes: -GASTROGRAFIN SOLUTION 30ML (Q9963) As Ordered ONE; -ISOVUE-370 76% 100ML VIAL As Ordered ONE
--- NOTE | 2020-12-29 17:46 | REP ---
INDICATION: RESTAGING PANCREATIC CANCER C25.8. COMPARISON: PET-CT, 09/09/2020. TECHNIQUE: 9.05 mCi of FDG 18 was administered intravenously via the right hand. Approximately 45 minutes later PET-CT images were obtained from the skull base to the pubic symphysis. FINDINGS: Head and neck: There is calcific vascular disease of both carotid bifurcations. Chest: There is a 19 x 17 x 7 mm soft tissue density nodule in the lower lobe of the left lung demonstrating FDG activity, max SUV 1.6. There are no pleural effusions. The heart size is normal. There is no pericardial effusion. There is calcific vascular disease of the thoracic aorta and coronary arteries. There is an endoluminal aortic valve prosthesis. There is a chemotherapy port in the right upper chest wall with the tip in the superior vena cava via the right internal jugular vein. Abdomen and pelvis: There is focally increased FDG activity in the neck of the pancreas, max SUV 4.2. However, the degree of FDG activity has decreased since the prior exam. There is calcific vascular disease of the abdominal aorta. There is a retroaortic left renal vein is a normal variant. There are benign cortical and peripelvic cysts in the kidneys. The prostate gland and seminal vesicles are surgically absent. There is colonic diverticulosis without diverticulitis. There are multiple benign peripelvic cysts in both kidneys. There is bilateral nephrolithiasis. Musculoskeletal: There is a healed fracture of the left inferior pubic ramus. There are no abnormal lytic or sclerotic foci or areas of abnormal FDG activity in the visualized axial and appendicular skeleton. IMPRESSION: 1. There is focal FDG activity within the neck of the pancreas, decreased in intensity since the prior exam. 2. Soft tissue density nodule in the lower lobe of the left lung, not significantly changed since the prior exam. There is no significant FDG activity. 3. Other findings as noted, not significantly changed. <Electronically signed by Nick Moscoso > 12/29/20 [id number]
== END ==
LOC: M PLARAD 08:30
PROVIDERS: ATTEND Specialist
DX: C25.8 Malignant neoplasm of overlapping sites of pancreas (principal); R91.8 Other nonspecific abnormal finding of lung field
CPT/HCPCS: 78815; A9552

== ENCOUNTER 2021-01-23 15:20 | Emergency (ER) | payer MEDICARE, OTHER ==
[~2021-01-23] VITALS: Ht 175.3 cm; Wt 62.9 kg
[~2021-01-23 15:20] MED LIST changes: +MECL-136 PO
--- OUTSIDE RECORDS SUMMARY | 2021-01-23 15:28 | CCD | Continuity of Care Document ---
Author Author Trace SANCHEZ M.D. Organization Unknown Address [address] [address] Phone [phone] Care Team Providers Care Senior Clinical Consultant Name Role Phone Neftali Malik Kasandra [facility] [phone] Problems Active Problems Provider Date Urolith Homero Sanchez M.D. Onset: 3 Type 2 diabetes mellitus Homero Sanchez M.D. Onset: 06/2012 Mixed hyperlipidemia Homero Sanchez M.D. Onset: 12/08/19 13 Benign essential hypertension Homero Sanchez M.D. Onset: 12/07/2012 Social History Type Date Description Comments Sex Unknown ETOH Use Consumes 1 beer per day Tobacco Use Start: Unknown End: Unknown Patient is a former smoker Quit 1969 Recreational Drug Use Denies Drug Use Allergies and adverse reactions Active Allergies Criticality Reaction | Severity Comments Date No Known Drug Allergy Unable to assess criticality 03/22/2013 Medications Active Medications SIG Qnty Indications Ordering Provide r Date Multivitamin Tablets 1 tab by mouth once a day OTC Homero Sanchez M.D. 11/18/19 21 Flax Seed Oil Capsules 1 p.o . qd OTC Homero Sanchez M.D. 01/23/2015 Cinnamon 500mg Tablets 1 by mouth every day Unknown Vitamin D 25mcg (1000 Ut) Tablets 1 by mouth every day (seasonal) OTC Unknown Kelp 100mg Tablets daily a s directed OTC Unknown Immunizations CPT Code Status Date Vaccine Lot # 33566 Given 07/29/2015 Prevnar 13 Pneum o. Conj Ped. Vaccine 13 Valent (PCV13) For [place] Use [id number] Given 07/24/2014 Zoster (Shingles) Vaccine 07138 Refused 02/22/2019 Influenza Virus Vaccine, Quadrivalent, Slit Virus, Im Use 3Y & Up 85412 Refused 02/13/2018 Influenza Virus Vaccine, Quadrivalent, Slit Virus, Im Use 3Y & Up 30708 Refused 02/03/2016 Influenza Virus Vaccine, Quadrivalent, Slit Virus, Im Use 3Y & Up Vital Signs Date Vital Result Comment 11/17/2020 11:02am BP Systolic 118 mmHg BP Diastolic 72 mmHg Body Temperature 98.1 F Heart Rate 76 /min Respiratory Rate 12 /min Height 68 inches 5'8" Weight 132.00 lb [place] Body Weight 154 lb BMI (Body Mass Index) 20.1 kg/m2 O2 % BldC Oximetry 94 % 07/29/2020 2:17pm BP Systolic 120 mmHg BP Diastolic 78 mmHg Body Temperature 97.9 F Heart Rate 50 /min Respiratory Rate 14 /min Height 68 inches 5'8" Weight 140.00 lb [place] Body Weight 154 lb BMI (Body Mass Index) 21.3 kg/m2 O2 % BldC Oximetry 95 % Results Test Acquired Date Facility Test Result H/L Range Note Comprehensive Metabolic Profil 01/19/2021 [facility] (Interface) [phone] Glucose, Fasting 141 mg/dL High 70-100 Blood Urea Nitrogen 11 mg/dL Normal 7-18 Creatinine For GFR 0.80 mg/dL Normal 0.70-1.30 Glomerular Filtration Rate > 60.0 Normal >35 1 Sodium Level 138 mEq/L Normal 136-145 Potassium Serum 4.0 mEq/L Normal 3.5-5.1 Chloride Level 107 mEq/L Normal 98-107 Carbon Dioxide Level 25 mEq/L Normal 21-32 Anion Gap 6 mEq/L Low 8-16 Calcium Level 8.8 mg/dL Normal 8.8-10.2 Ast/Sgot 13 U/L Normal 7-37 Alt/SGPT 17 U/L Normal 12-78 Alkaline Phosphatase 74 U/L Normal 45-117 Bilirubin,Total 0.5 mg/dL Normal 0.2-1.0 Total Protein 6.6 GM/DL Normal 6.4-8.2 Albumin 3.8 GM/DL Normal 3.2-5.2 Albumin/Globulin Ratio 1.4 Normal Laboratory test finding 01/19/2021 [facility] (Interface) [phone] Ca19-9 Tumor Marker,Carbohydra 50022.1 U/ML High <35.0 2 CBC With Auto Differential OB 01/19/2021 [facility]) [phone] White Blood Count 7.7 10 Normal 4.0-10.0 Red Blood Count 3.97 10 Low 4.30-6.10 Hemoglobin 12.9 g/dL Low 13.5-17.5 Hematocrit 37.8 % Low 42.0-52.0 Mean Corpuscular Volume 95.2 fl Normal 80.0-96.0 Mean Corpuscular Hemoglobin 32.5 pg Normal 27.0-33.0 Mean Corpuscular HGB Conc 34.1 g/dL Normal 32.0-36.5 Red Cell Distribution Width 12.9 % Normal 11.5-14.5 Platelet Count, Automated 118 10 Low 150-450 Neutrophils % 53.0 % Normal 36.0-66.0 Lymph % 10.4 % Low 24.0-44.0 [place] % 31.3 % High 2.0-8.0 Eos % 0.6 % Normal 0.0-3.0 Baso % 0.4 % Normal 0.0-1.0 Immature Granulocyte % 4.3 % High 0-3.0 Nucleated Red Blood Cell % 0.0 % Normal 0-0 Neutrophils # 4.1 10 Normal 1.5-8.5 Lymph # 0.8 10 Low 1.5-5.0 [place] # 2.4 10 High 0.0-0.8 Eos # 0.1 10 Normal 0.0-0.5 Baso # 0.0 10 Normal 0.0-0.2 CBC With Auto Differential OB 01/12/2021 [facility] ([facility]) [phone] White Blood Count 1.8 10 Low 4.0-10.0 Red Blood Count 3.82 10 Low 4.30-6.10 Hemoglobin 12.3 g/dL Low 13.5-17.5 Hematocrit 35.8 % Low 42.0-52.0 Mean Corpuscular Volume 93.7 fl Normal 80.0-96.0 Mean Corpuscular Hemoglobin 32.2 pg Normal 27.0-33.0 Mean Corpuscular HGB Conc 34.4 g/dL Normal 32.0-36.5 Red Cell Distribution Width 11.9 % Normal 11.5-14.5 Platelet Count, Automated 72 10 Low 150-450 Neutrophils % 67.9 % High 36.0-66.0 Lymph % 23.2 % Low 24.0-44.0 [place] % 5.0 % Normal 2.0-8.0 Eos % 1.1 % Normal 0.0-3.0 Baso % 0.0 % Normal 0.0-1.0 Immature Granulocyte % 2.8 % Normal 0-3.0 Nucleated Red Blood Cell % 0.0 % Normal 0-0 Neutrophils # 1.2 10 Low 1.5-8.5 Lymph # 0.4 10 Low 1.5-5.0 [place] # 0.1 10 Normal 0.0-0.8 Eos # 0.0 10 Normal 0.0-0.5 Baso # 0.0 10 Normal 0.0-0.2 Laboratory test finding 01/12/2021 [facility] (Interface) [phone] Immature Platelet Fraction 3.9 % Normal 0.0-1 0.91 Comprehensive Metabolic Pro[facility] [phone] Glucose, Fasting 166 mg/dL High 70-100 Blood Urea Nitrogen 14 mg/dL Normal 7-18 Creatinine For GFR 0.85 mg/dL Normal 0.70-1.30 Glomerular Filtration Rate > 60.0 Normal >35 3 Sodium Level 138 mEq/L Normal 136-145 Potassium Serum 3.8 mEq/L Normal 3.5-5.1 Chloride Level 106 mEq/L Normal 98-107 Carbon Dioxide Level 26 mEq/L Normal 21-32 Anion Gap 6 mEq/L Low 8-16 Calcium Level 9.1 mg/dL Normal 8.8-10.2 Ast/Sgot 8 U/L Normal 7-37 Alt/SGPT 18 U/L Normal 12-78 Alkaline Phosphatase 71 U/L Normal 45-117 Bilirubin,Total 0.8 mg/dL Normal 0.2-1.0 Total Protein 6.6 GM/DL Normal 6.4-8.2 Albumin 4.0 GM/DL Normal 3.2-5.2 Albumin/Globulin Ratio 1.5 Normal CBC With Auto Differential OB [facility] [phone] White Blood Count 7.2 10 Normal 4.0-10.0 Red Blood Count 4.14 10 Low 4.30-6.10 Hemoglobin 13.5 g/dL Normal 13.5-17.5 Hematocrit 40.0 % Low 42.0-52.0 Mean Corpuscular Volume 96.6 fl High 80.0-96.0 Mean Corpuscular Hemoglobin 32.6 pg Normal 27.0-33.0 Mean Corpuscular HGB Conc 33.8 g/dL Normal 32.0-36.5 Red Cell Distribution Width 12.7 % Normal 11.5-14.5 Platelet Count, Automated 125 10 Low 150-450 Neutrophils % 55.8 % Normal 36.0-66.0 Lymph % 9.5 % Low 24.0-44.0 [place] % 31.6 % High 2.0-8.0 Eos % 1.1 % Normal 0.0-3.0 Baso % 0.1 % Normal 0.0-1.0 Immature Granulocyte % 1.9 % Normal 0-3.0 Nucleated Red Blood Cell % 0.0 % Normal 0-0 Neutrophils # 4.0 10 Normal 1.5-8.5 Lymph # 0.7 10 Low 1.5-5.0 [place] # 2.3 10 High 0.0-0.8 Eos # 0.1 10 Normal 0.0-0.5 Baso # 0.0 10 Normal 0.0-0.2 Comprehensive Metabolic Profil 01/05/2021 [facility] ([facility]) [phone] Glucose, Fasting 158 mg/dL High 70-100 Blood Urea Nitrogen 13 mg/dL Normal 7-18 Creatinine For GFR 0.84 mg/dL Normal 0.70-1.30 Glomerular Filtration Rate > 60.0 Normal >35 4 Sodium Level 138 mEq/L Normal 136-145 Potassium Serum 3.8 mEq/L Normal 3.5-5.1 Chloride Level 105 mEq/L Normal 98-107 Carbon Dioxide Level 27 mEq/L Normal 21-32 Anion Gap 6 mEq/L Low 8-16 Calcium Level 9.1 mg/dL Normal 8.8-10.2 Ast/Sgot 11 U/L Normal 7-37 Alt/SGPT 16 U/L Normal 12-78 Alkaline Phosphatase 70 U/L Normal 45-117 Bilirubin,Total 0.7 mg/dL Normal 0.2-1.0 Total Protein 7.0 GM/DL Normal 6.4-8.2 Albumin 4.0 GM/DL Normal 3.2-5.2 Albumin/Globulin Ratio 1.3 Normal Laboratory test finding 01/05/2021 [facility] ([facility]) [phone] Ca19-9 Tumor Marker,Carbohydra 26851.3 U/ML High <35.0 5 Blood Culture 12/10/2020 [facility] [phone] Blood Culture No growth after <SEE NOTE> 6 Blood Culture 12/10/2020 [facility] [phone] Blood Culture No growth after <SEE NOTE> 7 Laboratory test finding 12/10/2020 [facility] ([facility]) [phone] Ca19-9 Tumor Marker,Carbohydra 85793.8 U/ML High <35.0 8 Comprehensive Metabolic Profil 12/10/2020 [facility]) [phone] Glucose, Fasting 129 mg/dL High 70-100 Blood Urea Nitrogen 14 mg/dL Normal 7-18 Creatinine For GFR 0.79 mg/dL Normal 0.70-1.30 Glomerular Filtration Rate > 60.0 Normal >35 9 Sodium Level 135 mEq/L Low 136-145 Potassium Serum 3.7 mEq/L Normal 3.5-5.1 Chloride Level 100 mEq/L Normal 98-107 Carbon Dioxide Level 31 mEq/L Normal 21-32 Anion Gap 4 mEq/L Low 8-16 Calcium Level 9.9 mg/dL Normal 8.8-10.2 Ast/Sgot 9 U/L Normal 7-37 Alt/SGPT 13 U/L Normal 12-78 Alkaline Phosphatase 75 U/L Normal 45-117 Bilirubin,Total 0.6 mg/dL Normal 0.2-1.0 Total Protein 7.7 GM/DL Normal 6.4-8.2 Albumin 4.3 GM/DL Normal 3.2-5.2 Albumin/Globulin Ratio 1.3 Normal CBC With Auto Differential OB 12/10/2020 [facility]) [phone] White Blood Count 10.7 10 High 4.0-10.0 Red Blood Count 4.25 10 Low 4.30-6.10 Hemoglobin 13.9 g/dL Normal 13.5-17.5 Hematocrit 41.6 % Low 42.0-52.0 Mean Corpuscular Volume 97.9 fl High 80.0-96.0 Mean Corpuscular Hemoglobin 32.7 pg Normal 27.0-33.0 Mean Corpuscular HGB Conc 33.4 g/dL Normal 32.0-36.5 Red Cell Distribution Width 14.1 % Normal 11.5-14.5 Platelet Count, Automated 116 10 Low 150-450 Neutrophils % 54.3 % Normal 36.0-66.0 Lymph % 7.0 % Low 24.0-44.0 [place] % 33.2 % High 2.0-8.0 Eos % 0.8 % Normal 0.0-3.0 Baso % 0.4 % Normal 0.0-1.0 Immature Granulocyte % 4.3 % High 0-3.0 Nucleated Red Blood Cell % 0.0 % Normal 0-0 Neutrophils # 5.8 10 Normal 1.5-8.5 Lymph # 0.8 10 Low 1.5-5.0 [place] # 3.5 10 High 0.0-0.8 Eos # 0.1 10 Normal 0.0-0.5 Baso # 0.0 10 Normal 0.0-0.2 Laboratory test finding 11/10/2020 [facility] (Interface) [phone] Cytogenetics Fish For Path So See Pathology Re < SEE NOTE> Normal 10 BCR/Abl Screen For CML Path So See Pathology Re <SEE NOTE> Normal 11 CBC With Auto Differential OB 11/06/2020 [facility] (Interface) [phone] White Blood Count 38.5 10 Critical high 4.0-10.0 Red Blood Count 3.71 10 Low 4.30-6.10 Hemoglobin 12.0 g/dL Low 13.5-17.5 Hematocrit 36.0 % Low 42.0-52.0 Mean Corpuscular Volume 97.0 fl High 80.0-96.0 Mean Corpuscular Hemoglobin 32.3 pg Normal 27.0-33.0 Mean Corpuscular HGB Conc 33.3 g/dL Normal 32.0-36.5 Red Cell Distribution Width 13.8 % Normal 11.5-14.5 Platelet Count, Automated 210 10 Normal 150-450 Neutrophils % 62.7 % Normal 36.0-66.0 Lymph % 4.1 % Low 24.0-44.0 [place] % 21.0 % High 2.0-8.0 Eos % 0.1 % Normal 0.0-3.0 Baso % 0.7 % Normal 0.0-1.0 Immature Granulocyte % 11.4 % High 0-3.0 Nucleated Red Blood Cell % 0.0 % Normal 0-0 Neutrophils # 24.2 10 High 1.5-8.5 Lymph # 1.6 10 Normal 1.5-5.0 [place] # 8.1 10 High 0.0-0.8 Eos # 0.0 10 Normal 0.0-0.5 Baso # 0.3 10 High 0.0-0.2 Comprehensive Metabolic Profil 11/06/2020 [facility]) [phone] Glucose, Fasting 133 mg/dL High 70-100 Blood Urea Nitrogen 16 mg/dL Normal 7-18 Creatinine For GFR 0.71 mg/dL Normal 0.70-1.30 Glomerular Filtration Rate > 60.0 Normal >35 1 2 Sodium Level 139 mEq/L Normal 136-145 Potassium Serum 3.8 mEq/L Normal 3.5-5.1 Chloride Level 104 mEq/L Normal 98-107 Carbon Dioxide Level 26 mEq/L Normal 21-32 Anion Gap 9 mEq/L Normal 8-16 Calcium Level 8.9 mg/dL Normal 8.8-10.2 Ast/Sgot 18 U/L Normal 7-37 Alt/SGPT 16 U/L Normal 12-78 Alkaline Phosphatase 101 U/L Normal 45-117 Bilirubin,Total 0.4 mg/dL Normal 0.2-1.0 Total Protein 7.1 GM/DL Normal 6.4-8.2 Albumin 3.5 GM/DL Normal 3.2-5.2 Albumin/Globulin Ratio 1.0 Normal Laboratory test finding 11/06/2020 [facility] ([facility]) [phone] Ca19-9 Tumor Marker,Carbohydra 6514.9 U/ML High <35.0 13 Laboratory test finding 10/23/2020 [facility] (Interface) [phone] Partial Thromboplastin Time 30.9 seconds Normal 25 .9-37.0 Istat Chem8+ Panel 10/23/2020 [facility]) [phone] iSTAT HCT 40.0 % Normal 38.0-51.0 iSTAT Glucose 232 mg/dL High 70-105 iSTAT Sodium 136 mEq/L Normal 136-145 iSTAT Potassium 3.6 mEq/L Normal 3.5-5.1 iSTAT CA++ 4.4 mg/dL Low 4.5-5.3 iSTAT Chloride 98 mEq/L Normal 98-109 iSTAT Co2 20.0 MM/L Low 23.0-27.0 iSTAT BUN 15 mg/dL Normal 8-26 iSTAT Creatinine 0.9 mg/dL Normal 0.6-1.3 Laboratory test finding 10/23/2020 [facility] (Interface) [phone] Platelet Estimate DECREASED Normal Normal Immature Platelet Fraction 7.1 % Normal 0.0-10.91 Differential 10/23/2020 [facility]) [phone] Neutrophils 84 % High 28-66 Bands 6 % Normal < 11 Lymphocytes 2 % Low 16-44 Monocytes 8 % High 0-5 RBC Morphology NORMAL Normal CBC With Differential 10/23/2020 [facility] (Interface) [phone] White Blood Count 23.5 10 High 4.0-10.0 14 Red Blood Count 4.14 10 Low 4.30-6.10 Hemoglobin 13.6 g/dL Normal 13.5-17.5 Hematocrit 38.9 % Low 42.0-52.0 Mean Corpuscular Volume 94.0 fl Normal 80.0-96.0 Mean Corpuscular Hemoglobin 32.9 pg Normal 27.0-33.0 Mean Corpuscular HGB Conc 35.0 g/dL Normal 32.0-36.5 Red Cell Distribution Width 12.2 % Normal 11.5-14.5 Platelet Count, Automated 49 10 Low 150-450 Nucleated Red Blood Cell % 0.1 % High 0-0 Laboratory test finding 10/23/2020 [facility] (Interface) [phone] NT-Pro BNP 2080 pg/mL High <450 Liver Profile 10/23/2020 [facility] ([facility]) [phone] Ast/Sgot 13 U/L Normal 7-37 Alt/SGPT 17 U/L Normal 12-78 Alkaline Phosphatase 132 U/L High 45-117 Bilirubin,Total 0.9 mg/dL Normal 0.2-1.0 Bilirubin,Direct 0.4 mg/dL High 0.0-0.2 Total Protein 5.9 GM/DL Low 6.4-8.2 Albumin 3.3 GM/DL Normal 3.2-5.2 Albumin/Globulin Ratio 1.3 Normal Cardiac Marker Panel 10/23/2020 [facility] ( Interface) [phone] CPK Creatine Phosphokinase 24 U/L Low 39-30 8 CK-MB Value Mass < 1.0 NG/ML Normal <3.6 MB/CK Relative Index 4.17 High < Or =4 15 Troponin I 0.15 NG/ML High < 0.10 16 Prothrombin Time/Inr 10/23/2020 [facility] ( Interface) [phone] Prothrombin Time 15.9 seconds High 12.7-14.5 Inr 1.23 Normal 17 Influenxa A/B RSV Covid Amp 10/23/2020 [facility] (Interface) [phone] Influenza A Amplification NEGATIVE Normal Negati ve 18 Influenza B Amplification NEGATIVE Normal Negative 19 RSV Amplification NEGATIVE Normal Negative 20 Sars Covid-19 Amplification NEGATIVE Normal Negative 21 Laboratory test finding 10/23/2020 [facility] (Interface) [phone] Lactic Acid Sepsis Protocol 3.0 mmol/L Critical high 0 .4-2.0 22 Basic Metabolic Profile 10/23/2020 [facility] (Interface) [phone] Glucose, Fasting 215 mg/dL High 70-100 Blood Urea Nitrogen 15 mg/dL Normal 7-18 Creatinine For GFR 1.13 mg/dL Normal 0.70-1.30 Glomerular Filtration Rate > 60.0 Normal >35 2 3 Sodium Level 137 mEq/L Normal 136-145 Potassium Serum 3.6 mEq/L Normal 3.5-5.1 Chloride Level 102 mEq/L Normal 98-107 Carbon Dioxide Level 24 mEq/L Normal 21-32 Anion Gap 11 mEq/L Normal 8-16 Calcium Level 8.7 mg/dL Low 8.8-10.2 Coronavirus 2019 Nasopharygeal 10/15/2020 [facility]) [phone] Coronavirus 2019 Nasopharygeal ASSAY INFORMATIO <SEE N OTE> 24 Laboratory test finding 10/08/2020 [facility] ([facility]) [phone] Ca19-9 Tumor Marker,Carbohydra 6310.2 U/ML High <35.0 25 Comprehensive Metabolic Profil 10/08/2020 [facility]) [phone] Glucose, Fasting 131 mg/dL High 70-100 Blood Urea Nitrogen 15 mg/dL Normal 7-18 Creatinine For GFR 0.73 mg/dL Normal 0.70-1.30 Glomerular Filtration Rate > 60.0 Normal >35 2 6 Sodium Level 139 mEq/L Normal 136-145 Potassium Serum 4.3 mEq/L Normal 3.5-5.1 Chloride Level 103 mEq/L Normal 98-107 Carbon Dioxide Level 30 mEq/L Normal 21-32 Anion Gap 6 mEq/L Low 8-16 Calcium Level 9.1 mg/dL Normal 8.8-10.2 Ast/Sgot 10 U/L Normal 7-37 Alt/SGPT 19 U/L Normal 12-78 Alkaline Phosphatase 65 U/L Normal 45-117 Bilirubin,Total 0.8 mg/dL Normal 0.2-1.0 Total Protein 6.9 GM/DL Normal 6.4-8.2 Albumin 4.4 GM/DL Normal 3.2-5.2 Albumin/Globulin Ratio 1.8 Normal CBC With Auto Differential OB 10/08/2020 [facility]) [phone] White Blood Count 9.8 10 Normal 4.0-10.0 27 Red Blood Count 4.82 10 Normal 4.30-6.10 Hemoglobin 15.4 g/dL Normal 13.5-17.5 Hematocrit 46.3 % Normal 42.0-52.0 Mean Corpuscular Volume 96.1 fl High 80.0-96.0 Mean Corpuscular Hemoglobin 32.0 pg Normal 27.0-33.0 Mean Corpuscular HGB Conc 33.3 g/dL Normal 32.0-36.5 Red Cell Distribution Width 12.4 % Normal 11.5-14.5 Platelet Count, Automated 161 10 Normal 150-450 Neutrophils % 53.2 % Normal 36.0-66.0 Lymph % 8.1 % Low 24.0-44.0 [place] % 34.9 % High 2.0-8.0 Eos % 1.0 % Normal 0.0-3.0 Baso % 0.3 % Normal 0.0-1.0 Immature Granulocyte % 2.5 % Normal 0-3.0 Nucleated Red Blood Cell % 0.0 % Normal 0-0 Neutrophils # 5.2 10 Normal 1.5-8.5 Lymph # 0.8 10 Low 1.5-5.0 [place] # 3.4 10 High 0.0-0.8 Eos # 0.1 10 Normal 0.0-0.5 Baso # 0.0 10 Normal 0.0-0.2 Laboratory test finding 09/25/2020 [facility] (Interface) [phone] Ca19-9 Tumor Marker,Carbohydra 5746.2 U/ML High <35.0 28 CBC With Auto Differential OB 09/18/2020 [facility] (Interface) [phone] White Blood Count 8.0 10 Normal 4.0-10.0 29 Red Blood Count 4.52 10 Normal 4.30-6.10 Hemoglobin 14.9 g/dL Normal 13.5-17.5 Hematocrit 43.3 % Normal 42.0-52.0 Mean Corpuscular Volume 95.8 fl Normal 80.0-96.0 Mean Corpuscular Hemoglobin 33.0 pg Normal 27.0-33.0 Mean Corpuscular HGB Conc 34.4 g/dL Normal 32.0-36.5 Red Cell Distribution Width 12.3 % Normal 11.5-14.5 Platelet Count, Automated 115 10 Low 150-450 Neutrophils % 47.0 % Normal 36.0-66.0 Lymph % 10.8 % Low 24.0-44.0 [place] % 37.8 % High 2.0-8.0 Eos % 1.8 % Normal 0.0-3.0 Baso % 0.3 % Normal 0.0-1.0 Immature Granulocyte % 2.3 % Normal 0-3.0 Nucleated Red Blood Cell % 0.0 % Normal 0-0 Neutrophils # 3.8 10 Normal 1.5-8.5 Lymph # 0.9 10 Low 1.5-5.0 [place] # 3.0 10 High 0.0-0.8 Eos # 0.1 10 Normal 0.0-0.5 Baso # 0.0 10 Normal 0.0-0.2 Comprehensive Metabolic Profil 09/18/2020 [facility] ([facility]) [phone] Glucose, Fasting 120 mg/dL High 70-100 Blood Urea Nitrogen 13 mg/dL Normal 7-18 Creatinine For GFR 0.74 mg/dL Normal 0.70-1.30 Glomerular Filtration Rate > 60.0 Normal >35 3 0 Sodium Level 140 mEq/L Normal 136-145 Potassium Serum 4.1 mEq/L Normal 3.5-5.1 Chloride Level 106 mEq/L Normal 98-107 Carbon Dioxide Level 29 mEq/L Normal 21-32 Anion Gap 5 mEq/L Low 8-16 Calcium Level 8.8 mg/dL Normal 8.8-10.2 Ast/Sgot 10 U/L Normal 7-37 Alt/SGPT 20 U/L Normal 12-78 Alkaline Phosphatase 56 U/L Normal 45-117 Bilirubin,Total 0.7 mg/dL Normal 0.2-1.0 Total Protein 6.5 GM/DL Normal 6.4-8.2 Albumin 4.1 GM/DL Normal 3.2-5.2 Albumin/Globulin Ratio 1.7 Normal Laboratory test finding 09/04/2020 [facility] Hemoglobin A1c 6.1 % 4.50-6.20 CMP 09/04/2020 [facility] Glu 128 mg/dL High 70 - 110 31 BUN 16 mg/dL 8 - 23 Creat 0.7 mg/dL 0.7 - 1.2 BUN/Creatinine Ratio 21.1 CALC Na 139 mmol/L 136 - 145 K 4.4 mmol/L 3.5 - 5.1 CL 102.2 mmol/L 98.0 - 107.0 Co2 25.4 mmol/L 22.0 - 29.0 CA 9.3 mg/dL 8.6 - 10.2 TP 6.4 g/dL Low 6.6 - 8.7 Alb 4.9 g/dL 3.5 - 5.2 A/G Ratio 3.3 CALC Globulin 1.5 CALC Alp 65.2 U/L 40 - 129 Alt (SGPT) 9 U/L 0 - 41 Ast (Sgot) 11 U/L 0 - 40 Tbili 0.44 mg/dL 0.0 - 1.2 Osmolality-Calculated 279.9 CALC Anion Gap 16 mmol/L eGFR 103 # Calc 32 eGFR Non-Afr. Jamaican 89 # Calc 33 Lipid Panel 09/04/2020 [facility] Chol 171 mg/dL 0 - 200 Trig 58 mg/dL 35 - 200 HDL 53 mg/dL 35 - 55 LDL_C 106 Calc 75 - 129 Cho/HDL Ratio 3.2 CALC CBC With Auto Differential OB 08/31/2020 [facility] (Interface) [phone] White Blood Count 9.6 10 Normal 4.0-10.0 34 Red Blood Count 4.52 10 Normal 4.30-6.10 Hemoglobin 14.9 g/dL Normal 13.5-17.5 Hematocrit 43.3 % Normal 42.0-52.0 Mean Corpuscular Volume 95.8 fl Normal 80.0-96.0 Mean Corpuscular Hemoglobin 33.0 pg Normal 27.0-33.0 Mean Corpuscular HGB Conc 34.4 g/dL Normal 32.0-36.5 Red Cell Distribution Width 12.1 % Normal 11.5-14.5 Platelet Count, Automated 202 10 Normal 150-450 Neutrophils % 53.6 % Normal 36.0-66.0 Lymph % 6.8 % Low 24.0-44.0 [place] % 37.0 % High 2.0-8.0 Eos % 0.8 % Normal 0.0-3.0 Baso % 0.2 % Normal 0.0-1.0 Immature Granulocyte % 1.6 % Normal 0-3.0 Nucleated Red Blood Cell % 0.0 % Normal 0-0 Neutrophils # 5.2 10 Normal 1.5-8.5 Lymph # 0.7 10 Low 1.5-5.0 [place] # 3.6 10 High 0.0-0.8 Eos # 0.1 10 Normal 0.0-0.5 Baso # 0.0 10 Normal 0.0-0.2 Comprehensive Metabolic Profil 08/31/2020 [facility] (Interface) [phone] Glucose, Fasting 136 mg/dL High 70-100 Blood Urea Nitrogen 18 mg/dL Normal 7-18 Creatinine For GFR 0.86 mg/dL Normal 0.70-1.30 Glomerular Filtration Rate > 60.0 Normal >35 3 5 Sodium Level 139 mEq/L Normal 136-145 Potassium Serum 4.1 mEq/L Normal 3.5-5.1 Chloride Level 106 mEq/L Normal 98-107 Carbon Dioxide Level 26 mEq/L Normal 21-32 Anion Gap 7 mEq/L Low 8-16 Calcium Level 9.2 mg/dL Normal 8.8-10.2 Ast/Sgot 11 U/L Normal 7-37 Alt/SGPT 14 U/L Normal 12-78 Alkaline Phosphatase 60 U/L Normal 45-117 Bilirubin,Total 0.7 mg/dL Normal 0.2-1.0 Total Protein 6.8 GM/DL Normal 6.4-8.2 Albumin 4.4 GM/DL Normal 3.2-5.2 Albumin/Globulin Ratio 1.8 Normal 1 Units are mL/min/1.73 m2 Chronic Kidney Disease Staging per NKF: Stage I & II GFR >=60 Normal to Mildly Decreased Stage III GFR 30-59 Moderately Decreased Stage IV GFR 15-29 Severely Decreased Stage V GFR <15 Very Little GFR Left ESRD GFR <15 on CORONER/MEDICAL EXAMINER 2 THE CA 19-9 ASSAY IS PERFORM ED ON THE [employer] BY CHEMILUMINESCENCE AND SHOULD NOT BE COMPARED INTERCHANGEABLY WITH OTHER METHODS. IT SHOULD NOT BE USED ALONE A SCREENING TEST OR DIAGNOSIS FOR THE PRESENCE OR ABSENCE OF MALIGNANT DISEASE. PREDICTIONS OF DISEASE RECURRENCE SHOULD NOT BE BASED SOLELY ON VALUES OBTAINED FROM SERIAL PATIENT SERUM VALUES. 3 Units are mL/min/1.73 m2 Chronic Kidney Disease Staging per NKF: Stage I & II GFR >=60 Normal to Mildly Decreased Stage III GFR 30-59 Moderately Decreased Stage IV GFR 15-29 Severely Decreased Stage V GFR <15 Very Little GFR Left ESRD GFR <15 on CORONER/MEDICAL EXAMINER 4 Units are mL/min/1.73 m2 Chronic Kidney Disease Staging per NKF: Stage I & II GFR >=60 Normal to Mildly Decreased Stage III GFR 30-59 Moderately Decreased Stage IV GFR 15-29 Severely Decreased Stage V GFR <15 Very Little GFR Left ESRD GFR <15 on CORONER/MEDICAL EXAMINER 5 THE CA 19-9 ASSAY IS PERFORM ED ON THE [employer] BY CHEMILUMINESCENCE AND SHOULD NOT BE COMPARED INTERCHANGEABLY WITH OTHER METHODS. IT SHOULD NOT BE USED ALONE A SCREENING TEST OR DIAGNOSIS FOR THE PRESENCE OR ABSENCE OF MALIGNANT DISEASE. PREDICTIONS OF DISEASE RECURRENCE SHOULD NOT BE BASED SOLELY ON VALUES OBTAINED FROM SERIAL PATIENT SERUM VALUES. 6 No growth after 72 hours . A ll specimens observed for 5 days. Results final at that time. No growth after 48 hours . All specimens observed for 5 days. Results final at that time. No growth after 24 hours . All specimens observed for 5 days. Results final at that time. NO GROWTH AFTER 5 DAYS 7 No growth after 72 hours . A ll specimens observed for 5 days. Results final at that time. No growth after 48 hours . All specimens observed for 5 days. Results final at that time. No growth after 24 hours . All specimens observed for 5 days. Results final at that time. NO GROWTH AFTER 5 DAYS 8 THE CA 19-9 ASSAY IS PERFORM ED ON THE [employer] BY CHEMILUMINESCENCE AND SHOULD NOT BE COMPARED INTERCHANGEABLY WITH OTHER METHODS. IT SHOULD NOT BE USED ALONE A SCREENING TEST OR DIAGNOSIS FOR THE PRESENCE OR ABSENCE OF MALIGNANT DISEASE. PREDICTIONS OF DISEASE RECURRENCE SHOULD NOT BE BASED SOLELY ON VALUES OBTAINED FROM SERIAL PATIENT SERUM VALUES. 9 Units are mL/min/1.73 m2 Chronic Kidney Disease Staging per NKF: Stage I & II GFR >=60 Normal to Mildly Decreased Stage III GFR 30-59 Moderately Decreased Stage IV GFR 15-29 Severely Decreased Stage V GFR <15 Very Little GFR Left ESRD GFR <15 on CORONER/MEDICAL EXAMINER 10 See Pathology Report Specimen Collection for Pathology Reference Lab Testing. Refer to [facility] Pathology Report for Results:[id number] See Pathology Report Specimen Collection for Pathology Reference Lab Testing. Refer to [facility] Pathology Report for Results: [id number] Units are mL/min/1.73 m2 Chronic Kidney Disease Staging per NKF: Stage I & II GFR >=60 Normal to Mildly Decreased Stage III GFR 30-59 Moderately Decreased Stage IV GFR 15-29 Severely Decreased Stage V GFR <15 Very Little GFR Left ESRD GFR <15 on CORONER/MEDICAL EXAMINER 13 THE CA 19-9 ASSAY IS PERFORM ED ON THE [employer] BY CHEMILUMINESCENCE AND SHOULD NOT BE COMPARED INTERCHANGEABLY WITH OTHER METHODS. IT SHOULD NOT BE USED ALONE A SCREENING TEST OR DIAGNOSIS FOR THE PRESENCE OR ABSENCE OF MALIGNANT DISEASE. PREDICTIONS OF DISEASE RECURRENCE SHOULD NOT BE BASED SOLELY ON VALUES OBTAINED FROM SERIAL PATIENT SERUM VALUES. 14 A Pathologist review of this differential can help in the evaluation of a differential diagnosis. Please order a Pathologist Review (PERISM) if deemed necessary. Results are subject to change if a Pathologist Review is performed. 15 DIAGNOSIS CRITERIA MMB ng/ml Relative Index (RI) NON-AMI < or = 5 N/A PRINCE ZONE > 5 < or = 4 AMI > 5 > 4 16 Troponin I Reference Interva l for [employer] [place] LOCI: 99th Percentile= 0.00-0.045 ng/ml Risk Stratification: <= 0.10 ng/ml Decreased Risk for Adverse Clinical Events. 0.10-1.50 ng/ml Increased Risk for Adv erse Clinical Events. Evaluation of additional criterion and/or repeat testing in 2-6 hours is suggested to rule out myocardial damage. >= 1.50 ng/ml Indicative of Myocardial Injury. 17 THERAPUTIC HUMAN INR VALUES INDICATIONS NORMAL RANGES PROPHYLAXIS/TREATMENT OF: VENOUS THROMBOSIS 2.0-3.0 PULMONARY EMBOLISM 2.0-3.0 PREVENTION OF SYSTEMIC EMBOLISM FROM: TISSUE HEART VALVES 2.0-3.0 ACUTE MYOCARDIAL INFARCTION 2.0-3.0 VALVULAR HEART DISEASE 2.0-3.0 ATRIAL FIBRILLATION 2.0-3.0 MECHANICAL VALVES(HIGH RISK) 2.5-3.5 RECURRENT MYOCARDIAL INFARCTION 2.5-3.5 18 Negative results do not prec lude influenza or RSV virus infection and should not be used as the sole basis for treatment or other patient management decisions. 19 Negative results do not prec lude influenza or RSV virus infection and should not be used as the sole basis for treatment or other patient management decisions. 20 Negative results do not prec lude influenza or RSV virus infection and should not be used as the sole basis for treatment or other patient management decisions. 21 A false negative result may occur if a specimen is improperly collected, transported or handled. False negative results may also occur if inadequate numbers of organisms are present in the specimen. As with any molecular test, mutations within the target regions of X[employer]press SARS-CoV-2 could affect primer and/or probe binding resulting in failure to detect the presence of virus. This test cannot rule out diseases caused by other bacterial or viral pathogens. DISCLAIMER: Testing was performed using the [employer] SARS-CoV-2 test. This test was developed and its performance characteristics determined by [employer]. This test has not been FDA cleared or approved. This test has been authorized by FDA under an Emergency Use Authorization (EUA). This test is only authorized for the duration of time the declaration that circumstances exist justifying the authorization of the emergency use of in vitro diagnostic tests for detection of SARS-CoV-2 virus and/or diagnosis of COVID-19 infection under section 564(b)(1) of the Act, 21 U.S.C. 360bbb-3(b)(1), unless the authorization is terminated or revoked sooner. 22 Y/N query for Sepsis Lactate Rule: Y 23 Units are mL/min/1.73 m2 Chronic Kidney Disease Staging per NKF: Stage I & II GFR >=60 Normal to Mildly Decreased Stage III GFR 30-59 Moderately Decreased Stage IV GFR 15-29 Severely Decreased Stage V GFR <15 Very Little GFR Left ESRD GFR <15 on CORONER/MEDICAL EXAMINER 24 ASSAY INFORMATION: Real Time RT-PCR NOTE: The COVID-19 assay has been cleared by the U.S. Food and Drug Administration under the Emergency Use Authorization (EUA). [facility] and [facility] are designated as high complexity laboratories by the Clinical Laboratory Improvement Amendments of 1988(CLIA) and are qualified to perform this test. Not Detected 25 THE CA 19-9 ASSAY IS PERFORM ED ON THE [employer] BY CHEMILUMINESCENCE AND SHOULD NOT BE COMPARED INTERCHANGEABLY WITH OTHER METHODS. IT SHOULD NOT BE USED ALONE A SCREENING TEST OR DIAGNOSIS FOR THE PRESENCE OR ABSENCE OF MALIGNANT DISEASE. PREDICTIONS OF DISEASE RECURRENCE SHOULD NOT BE BASED SOLELY ON VALUES OBTAINED FROM SERIAL PATIENT SERUM VALUES. 26 Units are mL/min/1.73 m2 Chronic Kidney Disease Staging per NKF: Stage I & II GFR >=60 Normal to Mildly Decreased Stage III GFR 30-59 Moderately Decreased Stage IV GFR 15-29 Severely Decreased Stage V GFR <15 Very Little GFR Left ESRD GFR <15 on CORONER/MEDICAL EXAMINER 27 A Pathologist review of this differential can help in the evaluation of a differential diagnosis. Please order a Pathologist Review (PERISM) if deemed necessary. Results are subject to change if a Pathologist Review is performed. 28 THE CA 19-9 ASSAY IS PERFORM ED ON THE [employer] BY CHEMILUMINESCENCE AND SHOULD NOT BE COMPARED INTERCHANGEABLY WITH OTHER METHODS. IT SHOULD NOT BE USED ALONE A SCREENING TEST OR DIAGNOSIS FOR THE PRESENCE OR ABSENCE OF MALIGNANT DISEASE. PREDICTIONS OF DISEASE RECURRENCE SHOULD NOT BE BASED SOLELY ON VALUES OBTAINED FROM SERIAL PATIENT SERUM VALUES. 29 A Pathologist review of this differential can help in the evaluation of a differential diagnosis. Please order a Pathologist Review (PERISM) if deemed necessary. Results are subject to change if a Pathologist Review is performed. 30 Units are mL/min/1.73 m2 Chronic Kidney Disease Staging per NKF: Stage I & II GFR >=60 Normal to Mildly Decreased Stage III GFR 30-59 Moderately Decreased Stage IV GFR 15-29 Severely Decreased Stage V GFR <15 Very Little GFR Left ESRD GFR <15 on CORONER/MEDICAL EXAMINER 31 CHRONIC KIDNEY DISEASE STAGI NG PER NKF: MALE GFR INTERPRETATION: 20-49 YRS: >60 mL/min Normal 50-59 YRS: >56 mL/min Normal 60-69 YRS: >49 mL/min Normal 70-79 YRS: >42 mL/min Normal 80 and above >35 mL/min Normal FEMALE GRF INTERPRETATION: 20-39 YRS: >60 mL/min Normal 40-49 YRS: >58 mL/min Normal 50-59 YRS: >51 mL/min Normal 60-69 YRS: >45 mL/min Normal 70-79 YRS: >39 mL/min Normal 80 and above >32 mL/min NormalCLASSIFICATION CHOLESTEROL FOR ADULTS CHILDREN/ADOLESCENTS* DESIRABLE: <200 MG/DL <170 MG/DL BORDER-LINE HIGH RISK: 200-239 MG/DL 170-199 MG/DL HIGH RISK: >240 MG/DL >200 MG/DL CLASS. FOR PRIMARY LDL CHOL PREVENTION: LDL CHOL-CHILD/ADOLESCENTS* DESIRABLE: <130 MG/DL <110 MG/DL BORDERLINE-HIGH RISK: 130-159 MG/DL 110-129 MG/DL HIGH RISK: >160 MG/DL >130 MG/DL *CHILDREN AND ADOLESCENTS REPRESENTS INDIVIDUALA AGED 2-19 YEARS EXCLUSIVE. 32 CKD-EPI 33 CKD-EPI 34 A Pathologist review of this differential can help in the evaluation of a differential diagnosis. Please order a Pathologist Review (PERISM) if deemed necessary. Results are subject to change if a Pathologist Review is performed. 35 Units are mL/min/1.73 m2 Chronic Kidney Disease Staging per NKF: Stage I & II GFR >=60 Normal to Mildly Decreased Stage III GFR 30-59 Moderately Decreased Stage IV GFR 15-29 Severely Decreased Stage V GFR <15 Very Little GFR Left ESRD GFR <15 on CORONER/MEDICAL EXAMINER Procedures Date Code Description Status 11/17/2020 00814 Office/Outpatient Established Mo d MDM 30-39 Min Completed 07/29/2020 59965 Office/Outpatient Established Mo d MDM 30-39 Min Completed Medical Devices Description No Information Available Encounters Type Date Location Provider Dx Diagnosis Office Visit 11/17/2020 11:15a [address] [facility] Homero Sanchez M. D. 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 D. 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 09/04/2020 R73.01 Impaired fasting glucose Homero Da Silva M.D. 09/04/2020 R73.01 Impaired fasting glucose [facility] Schedule 09/04/2020 E78.2 Mixed hyperlipidemia John Sanchez M.D. 09/04/2020 E78.2 Mixed hyperlipidemia [facility] Schedule 07/29/2020 C25.1 Malignant neoplasm of body of pa Homero Earl M.D. Plan of Treatment No Information Available Functional Status Description No Information Available Mental Status Description No Information Available Referrals Description No Information Available
--- OUTSIDE RECORDS SUMMARY | 2021-01-23 15:28 | CCD ---
Continuity of Care Document (CCD) Created on: 01/19/2021 Trace Beal External Reference #: [id number] : [id number] Sex: Male Author Author Trace SANCHEZ M.D. Organization Unknown Address [address] [address] Phone [phone] Care Team Providers Care Retail Sales Manager Name Role Phone Neftali Malik Kasandra [facility] [phone] Problems Active Problems Provider Date Urolith Homero [...] CPT Code Status Date Vaccine Lot # 71124 Given 07/29/2015 Prevnar 13 Pneum o. Conj Ped. Vaccine 13 Valent (PCV13) For Im Use [id number] Given 07/24/2014 Zoster (Shingles) Vaccine 67476 Refused 02/22/2019 Influenza Virus Vaccine, Quadrivalent, Slit Virus, Im Use 3Y & Up 97200 Refused 02/13/2018 Influenza Virus Vaccine, Quadrivalent, Slit Virus, Im Use 3Y & Up 50380 Refused 02/03/2016 Influenza Virus Vaccine, Quadrivalent, Slit Virus, Im Use 3Y & Up Vital Signs Date Vital Result Comment 11/17/2020 11:02am BP Systolic 118 mmHg BP Diastolic 72 mmHg Body Temperature 98.1 F Heart Rate 76 /min Respiratory Rate 12 /min Height 68 inches 5'8" Weight 132.00 lb Liberal Body Weight 154 lb BMI (Body Mass Index) 20.1 kg/m2 O2 % BldC Oximetry 94 % 07/29/2020 2:17pm BP Systolic 120 mmHg BP Diastolic 78 mmHg Body Temperature 97.9 F Heart Rate 50 /min Respiratory Rate 14 /min Height 68 inches 5'8" Weight 140.00 lb Liberal Body Weight 154 lb BMI (Body Mass Index) 21.3 kg/m2 O2 % BldC Oximetry 95 % Results Test Acquired Date Facility Test Result H/L Range Note Comprehensive Metabolic Profil 01/19/2021 [facility] (Interface) [phone] Glucose, Fasting 141 mg/dL High 70-100 Blood [...] GM/DL Normal 3.2-5.2 Albumin/Globulin Ratio 1.4 Normal CBC With Auto Differential OB 01/19/2021 [facility] (Interface) [phone] White Blood Count 7.7 10 Normal 4.0-10.0 [...] 36.0-66.0 Lymph % 10.4 % Low 24.0-44.0 Dillon % 31.3 % High 2.0-8.0 Eos % 0.6 % Normal 0.0-3.0 Baso % 0.4 % Normal 0.0-1.0 Immature Granulocyte % 4.3 % High 0-3.0 Nucleated Red Blood Cell % 0.0 % Normal 0-0 Neutrophils # 4.1 10 Normal 1.5-8.5 Lymph # 0.8 10 Low 1.5-5.0 Dillon # 2.4 10 High 0.0-0.8 Eos # 0.1 10 Normal 0.0-0.5 Baso # 0.0 10 Normal 0.0-0.2 CBC With Auto Differential OB 01/12/2021 [facility]) [phone] White Blood Count 1.8 10 Low 4.0-10.0 [...] 36.0-66.0 Lymph % 23.2 % Low 24.0-44.0 Dillon % 5.0 % Normal 2.0-8.0 Eos % 1.1 % Normal 0.0-3.0 Baso % 0.0 % Normal 0.0-1.0 Immature Granulocyte % 2.8 % Normal 0-3.0 Nucleated Red Blood Cell % 0.0 % Normal 0-0 Neutrophils # 1.2 10 Low 1.5-8.5 Lymph # 0.4 10 Low 1.5-5.0 Dillon # 0.1 10 Normal 0.0-0.8 Eos # 0.0 10 Normal 0.0-0.5 Baso # 0.0 10 Normal 0.0-0.2 Laboratory test finding 01/12/2021 [facility] ([facility]) [phone] Immature Platelet Fraction 3.9 % Normal 0.0-1 0.91 Comprehensive Metabolic Profil 01/12/2021 [facility]) [phone] Glucose, Fasting 166 mg/dL High 70-100 Blood Urea Nitrogen 14 mg/dL Normal 7-18 Creatinine For GFR 0.85 mg/dL Normal 0.70-1.30 Glomerular Filtration Rate > 60.0 Normal >35 2 Sodium Level 138 mEq/L Normal 136-145 Potassium [...] Normal CBC With Auto Differential OB 01/05/2021 [facility]) [phone] White Blood Count 7.2 10 Normal 4.0-10.0 [...] 36.0-66.0 Lymph % 9.5 % Low 24.0-44.0 Dillon % 31.6 % High 2.0-8.0 Eos % 1.1 % Normal 0.0-3.0 Baso % 0.1 % Normal 0.0-1.0 Immature Granulocyte % 1.9 % Normal 0-3.0 Nucleated Red Blood Cell % 0.0 % Normal 0-0 Neutrophils # 4.0 10 Normal 1.5-8.5 Lymph # 0.7 10 Low 1.5-5.0 Dillon # 2.3 10 High 0.0-0.8 Eos # 0.1 10 Normal 0.0-0.5 Baso # 0.0 10 Normal 0.0-0.2 Comprehensive Metabolic Profil 01/05/2021 [facility] ([facility]) [phone] Glucose, Fasting 158 mg/dL High 70-100 Blood [...] Ratio 1.3 Normal Laboratory test finding 01/05/2021 [facility] (Interface) [phone] Ca19-9 Tumor Marker,Carbohydra 64031.3 U/ML High <35.0 4 Blood Culture 12/10/2020 [facility] [phone] Blood Culture No growth after <SEE NOTE> 5 Blood Culture 12/10/2020 [facility] [phone] Blood Culture No growth after <SEE NOTE> 6 Laboratory test finding 12/10/2020 [facility] (Interface) [phone] Ca19-9 Tumor Marker,Carbohydra 81653.8 U/ML High <35.0 7 Comprehensive Metabolic Profil 12/10/2020 [facility]) [phone] Glucose, Fasting 129 mg/dL High 70-100 Blood Urea Nitrogen 14 mg/dL Normal 7-18 Creatinine For GFR 0.79 mg/dL Normal 0.70-1.30 Glomerular Filtration Rate > 60.0 Normal >35 8 Sodium Level 135 mEq/L Low 136-145 Potassium [...] Normal CBC With Auto Differential OB 12/10/2020 [facility] ([facility]) [phone] White Blood Count 10.7 10 High 4.0-10.0 [...] 36.0-66.0 Lymph % 7.0 % Low 24.0-44.0 Dillon % 33.2 % High 2.0-8.0 Eos % 0.8 % Normal 0.0-3.0 Baso % 0.4 % Normal 0.0-1.0 Immature Granulocyte % 4.3 % High 0-3.0 Nucleated Red Blood Cell % 0.0 % Normal 0-0 Neutrophils # 5.8 10 Normal 1.5-8.5 Lymph # 0.8 10 Low 1.5-5.0 Dillon # 3.5 10 High 0.0-0.8 Eos # 0.1 10 Normal 0.0-0.5 Baso # 0.0 10 Normal 0.0-0.2 Laboratory test finding 11/10/2020 [facility] (Interface) [phone] Cytogenetics Fish For Path So See Pathology Re < SEE NOTE> Normal 9 BCR/Abl Screen For CML Path So See Pathology Re <SEE NOTE> Normal 10 CBC With Auto Differential OB 11/06/2020 [facility] (Interface) [phone] White Blood Count 38.5 10 Critical high [...] 36.0-66.0 Lymph % 4.1 % Low 24.0-44.0 Dillon % 21.0 % High 2.0-8.0 Eos % 0.1 % Normal 0.0-3.0 Baso % 0.7 % Normal 0.0-1.0 Immature Granulocyte % 11.4 % High 0-3.0 Nucleated Red Blood Cell % 0.0 % Normal 0-0 Neutrophils # 24.2 10 High 1.5-8.5 Lymph # 1.6 10 Normal 1.5-5.0 Dillon # 8.1 10 High 0.0-0.8 Eos # 0.0 10 Normal 0.0-0.5 Baso # 0.3 10 High 0.0-0.2 Comprehensive Metabolic Profil 11/06/2020 [facility] (Interface) [phone] Glucose, Fasting 133 mg/dL High 70-100 Blood Urea Nitrogen 16 mg/dL Normal 7-18 Creatinine For GFR 0.71 mg/dL Normal 0.70-1.30 Glomerular Filtration Rate > 60.0 Normal >35 1 1 Sodium Level 139 mEq/L Normal 136-145 Potassium [...] Ratio 1.0 Normal Laboratory test finding 11/06/2020 [facility] (Interface) [phone] Ca19-9 Tumor Marker,Carbohydra 6514.9 U/ML High <35.0 12 Laboratory test finding 10/23/2020 [facility] (Interface) [phone] Partial Thromboplastin Time 30.9 seconds Normal 25 .9-37.0 Istat Chem8+ Panel 10/23/2020 [facility] (I [facility]terface) [phone] iSTAT HCT 40.0 % Normal 38.0-51.0 iSTAT Glucose 232 mg/dL High 70-105 iSTAT Sodium 136 mEq/L Normal 136-145 iSTAT Potassium 3.6 mEq/L Normal 3.5-5.1 iSTAT CA++ 4.4 mg/dL Low 4.5-5.3 iSTAT Chloride 98 mEq/L Normal 98-109 iSTAT Co2 20.0 MM/L Low 23.0-27.0 iSTAT BUN 15 mg/dL Normal 8-26 iSTAT Creatinine 0.9 mg/dL Normal 0.6-1.3 Laboratory test finding 10/23/2020 [facility] (Interface) [phone] Platelet Estimate DECREASED Normal Normal Immature Platelet Fraction 7.1 % Normal 0.0-10.91 Differential 10/23/2020 [facility] [phone] Neutrophils 84 % High 28-66 Bands 6 % Normal < 11 Lymphocytes 2 % Low 16-44 Monocytes 8 % High 0-5 RBC Morphology NORMAL Normal CBC With Differential 10/23/2020 [facility] (Interface) [phone] White Blood Count 23.5 10 High 4.0-10.0 13 Red Blood Count 4.14 10 Low 4.30-6.10 [...] % High 0-0 Laboratory test finding 10/23/2020 [facility] (Interface) [phone] NT-Pro BNP 2080 pg/mL High <450 Liver Profile 10/23/2020 [facility] [phone] Ast/Sgot 13 U/L Normal 7-37 Alt/SGPT 17 U/L Normal 12-78 Alkaline Phosphatase 132 U/L High 45-117 Bilirubin,Total 0.9 mg/dL Normal 0.2-1.0 Bilirubin,Direct 0.4 mg/dL High 0.0-0.2 Total Protein 5.9 GM/DL Low 6.4-8.2 Albumin 3.3 GM/DL Normal 3.2-5.2 Albumin/Globulin Ratio 1.3 Normal Cardiac Marker Panel 10/23/2020 [facility] ( [facility]) [phone] CPK Creatine Phosphokinase 24 U/L Low 39-30 8 CK-MB Value Mass < 1.0 NG/ML Normal <3.6 MB/CK Relative Index 4.17 High < Or =4 14 Troponin I 0.15 NG/ML High < 0.10 15 Prothrombin Time/Inr 10/23/2020 [facility]) [phone] Prothrombin Time 15.9 seconds High 12.7-14.5 Inr 1.23 Normal 16 Influenxa A/B RSV Covid Amp 10/23/2020 [facility] (Interface) [phone] Influenza A Amplification NEGATIVE Normal Negati ve 17 Influenza B Amplification NEGATIVE Normal Negative 18 RSV Amplification NEGATIVE Normal Negative 19 Sars Covid-19 Amplification NEGATIVE Normal Negative 20 Laboratory test finding 10/23/2020 [facility] (Interface) [phone] Lactic Acid Sepsis Protocol 3.0 mmol/L Critical high 0 .4-2.0 21 Basic Metabolic Profile 10/23/2020 [facility] (Interface) [phone] Glucose, Fasting 215 mg/dL High 70-100 Blood Urea Nitrogen 15 mg/dL Normal 7-18 Creatinine For GFR 1.13 mg/dL Normal 0.70-1.30 Glomerular Filtration Rate > 60.0 Normal >35 2 2 Sodium Level 137 mEq/L Normal 136-145 Potassium Serum 3.6 mEq/L Normal 3.5-5.1 Chloride Level 102 mEq/L Normal 98-107 Carbon Dioxide Level 24 mEq/L Normal 21-32 Anion Gap 11 mEq/L Normal 8-16 Calcium Level 8.7 mg/dL Low 8.8-10.2 Coronavirus 2019 Nasopharygeal 10/15/2020 [facility]) [phone] Coronavirus 2019 Nasopharygeal ASSAY INFORMATIO <SEE N OTE> 23 Laboratory test finding 10/08/2020 [facility] ([facility]) [phone] Ca19-9 Tumor Marker,Carbohydra 6310.2 U/ML High <35.0 24 Comprehensive Metabolic Profil 10/08/2020 [facility]) [phone] Glucose, Fasting 131 mg/dL High 70-100 Blood Urea Nitrogen 15 mg/dL Normal 7-18 Creatinine For GFR 0.73 mg/dL Normal 0.70-1.30 Glomerular Filtration Rate > 60.0 Normal >35 2 5 Sodium Level 139 mEq/L Normal 136-145 [...] Normal CBC With Auto Differential OB 10/08/2020 [facility]) [phone] White Blood Count 9.8 10 Normal 4.0-10.0 26 Red Blood Count 4.82 10 Normal 4.30-6.10 [...] 36.0-66.0 Lymph % 8.1 % Low 24.0-44.0 Dillon % 34.9 % High 2.0-8.0 Eos % 1.0 % Normal 0.0-3.0 Baso % 0.3 % Normal 0.0-1.0 Immature Granulocyte % 2.5 % Normal 0-3.0 Nucleated Red Blood Cell % 0.0 % Normal 0-0 Neutrophils # 5.2 10 Normal 1.5-8.5 Lymph # 0.8 10 Low 1.5-5.0 Dillon # 3.4 10 High 0.0-0.8 Eos # 0.1 10 Normal 0.0-0.5 Baso # 0.0 10 Normal 0.0-0.2 Laboratory test finding 09/25/2020 [facility] (Interface) [phone] Ca19-9 Tumor Marker,Carbohydra 5746.2 U/ML High <35.0 27 CBC With Auto Differential OB 09/18/2020 [facility] (Interface) [phone] White Blood Count 8.0 10 Normal 4.0-10.0 28 Red Blood Count 4.52 10 Normal 4.30-6.10 [...] 36.0-66.0 Lymph % 10.8 % Low 24.0-44.0 Dillon % 37.8 % High 2.0-8.0 Eos % 1.8 % Normal 0.0-3.0 Baso % 0.3 % Normal 0.0-1.0 Immature Granulocyte % 2.3 % Normal 0-3.0 Nucleated Red Blood Cell % 0.0 % Normal 0-0 Neutrophils # 3.8 10 Normal 1.5-8.5 Lymph # 0.9 10 Low 1.5-5.0 Dillon # 3.0 10 High 0.0-0.8 Eos # 0.1 10 Normal 0.0-0.5 Baso # 0.0 10 Normal 0.0-0.2 Comprehensive Metabolic Profil 09/18/2020 [facility] ([facility]) [phone] Glucose, Fasting 120 mg/dL High 70-100 Blood Urea Nitrogen 13 mg/dL Normal 7-18 Creatinine For GFR 0.74 mg/dL Normal 0.70-1.30 Glomerular Filtration Rate > 60.0 Normal >35 2 9 Sodium Level 140 mEq/L Normal 136-145 Potassium [...] Ratio 1.7 Normal Laboratory test finding 09/04/2020 [facility] Hemoglobin A1c 6.1 % 4.50-6.20 CMP 09/04/2020 [facility] Glu 128 mg/dL High 70 - 110 30 BUN 16 mg/dL 8 - 23 Creat [...] Gap 16 mmol/L eGFR 103 # Calc 31 eGFR Non-Afr. Moroccan 89 # Calc 32 Lipid Panel 09/04/2020 [facility] Chol 171 mg/dL 0 - 200 Trig 58 mg/dL 35 - 200 HDL 53 mg/dL 35 - 55 LDL_C 106 Calc 75 - 129 Cho/HDL Ratio 3.2 CALC CBC With Auto Differential OB 08/31/2020 [facility] (Interface) [phone] White Blood Count 9.6 10 Normal 4.0-10.0 33 Red Blood Count 4.52 10 Normal 4.30-6.10 [...] 36.0-66.0 Lymph % 6.8 % Low 24.0-44.0 Dillon % 37.0 % High 2.0-8.0 Eos % 0.8 % Normal 0.0-3.0 Baso % 0.2 % Normal 0.0-1.0 Immature Granulocyte % 1.6 % Normal 0-3.0 Nucleated Red Blood Cell % 0.0 % Normal 0-0 Neutrophils # 5.2 10 Normal 1.5-8.5 Lymph # 0.7 10 Low 1.5-5.0 Dillon # 3.6 10 High 0.0-0.8 Eos # 0.1 10 Normal 0.0-0.5 Baso # 0.0 10 Normal 0.0-0.2 Comprehensive Metabolic Profil 08/31/2020 [facility] (Interface) [phone] Glucose, Fasting 136 mg/dL High 70-100 Blood Urea Nitrogen 18 mg/dL Normal 7-18 Creatinine For GFR 0.86 mg/dL Normal 0.70-1.30 Glomerular Filtration Rate > 60.0 Normal >35 3 4 Sodium Level 139 mEq/L Normal 136-145 Potassium [...] Little GFR Left ESRD GFR <15 on PURCHASING OFFICER 2 Units are mL/min/1.73 m2 Chronic Kidney Disease Staging per NKF: Stage I & II GFR >=60 Normal to Mildly Decreased Stage III GFR 30-59 Moderately Decreased Stage IV GFR 15-29 Severely Decreased Stage V GFR <15 Very Little GFR Left ESRD GFR <15 on PURCHASING OFFICER 3 Units are mL/min/1.73 m2 Chronic Kidney Disease Staging per NKF: Stage I & II GFR >=60 Normal to Mildly Decreased Stage III GFR 30-59 Moderately Decreased Stage IV GFR 15-29 Severely Decreased Stage V GFR <15 Very Little GFR Left ESRD GFR <15 on PURCHASING OFFICER 4 THE CA 19-9 ASSAY IS PERFORM ED ON THE [employer] BY CHEMILUMINESCENCE AND SHOULD NOT BE COMPARED INTERCHANGEABLY WITH OTHER METHODS. IT SHOULD NOT BE USED ALONE A SCREENING TEST OR DIAGNOSIS FOR THE PRESENCE OR ABSENCE OF MALIGNANT DISEASE. PREDICTIONS OF DISEASE RECURRENCE SHOULD NOT BE BASED SOLELY ON VALUES OBTAINED FROM SERIAL PATIENT SERUM VALUES. 5 No growth after 72 hours . A ll specimens observed for 5 days. Results final at that time. No growth after 48 hours . All specimens observed for 5 days. Results final at that time. No growth after 24 hours . All specimens observed for 5 days. Results final at that time. NO GROWTH AFTER 5 DAYS 6 No growth after 72 hours . A ll specimens observed for 5 days. Results final at that time. No growth after 48 hours . All specimens observed for 5 days. Results final at that time. No growth after 24 hours . All specimens observed for 5 days. Results final at that time. NO GROWTH AFTER 5 DAYS 7 THE CA 19-9 ASSAY IS PERFORM ED ON THE [employer] BY CHEMILUMINESCENCE AND SHOULD NOT BE COMPARED INTERCHANGEABLY WITH OTHER METHODS. IT SHOULD NOT BE USED ALONE A SCREENING TEST OR DIAGNOSIS FOR THE PRESENCE OR ABSENCE OF MALIGNANT DISEASE. PREDICTIONS OF DISEASE RECURRENCE SHOULD NOT BE BASED SOLELY ON VALUES OBTAINED FROM SERIAL PATIENT SERUM VALUES. 8 Units are mL/min/1.73 m2 Chronic Kidney Disease Staging per NKF: Stage I & II GFR >=60 Normal to Mildly Decreased Stage III GFR 30-59 Moderately Decreased Stage IV GFR 15-29 Severely Decreased Stage V GFR <15 Very Little GFR Left ESRD GFR <15 on PURCHASING OFFICER 9 See Pathology Report Specimen Collection for Pathology Reference Lab Testing. Refer to [facility] Pathology Report for Results:[id number] 10 See Pathology Report Specimen Collection for Pathology Reference Lab Testing. Refer to [facility] Pathology Report for Results: [id number] 11 Units are mL/min/1.73 m2 Chronic Kidney Disease Staging per NKF: Stage I & II GFR >=60 Normal to Mildly Decreased Stage III GFR 30-59 Moderately Decreased Stage IV GFR 15-29 Severely Decreased Stage V GFR <15 Very Little GFR Left ESRD GFR <15 on PURCHASING OFFICER 12 THE CA 19-9 ASSAY IS PERFORM ED ON THE [employer] BY CHEMILUMINESCENCE AND SHOULD NOT BE COMPARED INTERCHANGEABLY WITH OTHER METHODS. IT SHOULD NOT BE USED ALONE A SCREENING TEST OR DIAGNOSIS FOR THE PRESENCE OR ABSENCE OF MALIGNANT DISEASE. PREDICTIONS OF DISEASE RECURRENCE SHOULD NOT BE BASED SOLELY ON VALUES OBTAINED FROM SERIAL PATIENT SERUM VALUES. 13 A Pathologist review of this differential can help in the evaluation of a differential diagnosis. Please order a Pathologist Review (PERISM) if deemed necessary. Results are subject to change if a Pathologist Review is performed. 14 DIAGNOSIS CRITERIA MMB ng/ml Relative Index (RI) NON-AMI < or = 5 N/A PRINCE ZONE > 5 < or = 4 AMI > 5 > 4 15 Troponin I Reference Interva l for [employer] LOCI: 99th Percentile= 0.00-0.045 ng/ml Risk Stratification: <= 0.10 ng/ml Decreased Risk for Adverse Clinical Events. 0.10-1.50 ng/ml Increased Risk for Adv erse Clinical Events. Evaluation of additional criterion and/or repeat testing in 2-6 hours is suggested to rule out myocardial damage. >= 1.50 ng/ml Indicative of Myocardial Injury. 16 THERAPUTIC HUMAN INR VALUES INDICATIONS NORMAL RANGES PROPHYLAXIS/TREATMENT OF: VENOUS THROMBOSIS 2.0-3.0 PULMONARY EMBOLISM 2.0-3.0 PREVENTION OF SYSTEMIC EMBOLISM FROM: TISSUE HEART VALVES 2.0-3.0 ACUTE MYOCARDIAL INFARCTION 2.0-3.0 VALVULAR HEART DISEASE 2.0-3.0 ATRIAL FIBRILLATION 2.0-3.0 MECHANICAL VALVES(HIGH RISK) 2.5-3.5 RECURRENT MYOCARDIAL INFARCTION 2.5-3.5 17 Negative results do not prec lude influenza or RSV virus infection and should not be used as the sole basis for treatment or other patient management decisions. 18 Negative results do not prec lude influenza or RSV virus infection and should not be used as the sole basis for treatment or other patient management decisions. 19 Negative results do not prec lude influenza or RSV virus infection and should not be used as the sole basis for treatment or other patient management decisions. 20 A false negative result may occur if [...] pathogens. DISCLAIMER: Testing was performed using the [employer] SARS-CoV-2 test. This test was developed and its performance characteristics determined by [employer]. This test has not been FDA cleared [...] the authorization is terminated or revoked sooner. 21 Y/N query for Sepsis Lactate Rule: Y 22 Units are mL/min/1.73 m2 Chronic Kidney Disease Staging per NKF: Stage I & II GFR >=60 Normal to Mildly Decreased Stage III GFR 30-59 Moderately Decreased Stage IV GFR 15-29 Severely Decreased Stage V GFR <15 Very Little GFR Left ESRD GFR <15 on PURCHASING OFFICER 23 ASSAY INFORMATION: Real Time RT-PCR NOTE: The COVID-19 assay has been cleared by the U.S. Food and Drug Administration under the Emergency Use Authorization (EUA). [employer] [facility] are designated as high complexity laboratories by the Clinical Laboratory Improvement Amendments of 1988(CLIA) and are qualified to perform this test. Not Detected 24 THE CA 19-9 ASSAY IS PERFORM ED ON THE [employer] BY CHEMILUMINESCENCE AND SHOULD NOT BE COMPARED INTERCHANGEABLY WITH OTHER METHODS. IT SHOULD NOT BE USED ALONE A SCREENING TEST OR DIAGNOSIS FOR THE PRESENCE OR ABSENCE OF MALIGNANT DISEASE. PREDICTIONS OF DISEASE RECURRENCE SHOULD NOT BE BASED SOLELY ON VALUES OBTAINED FROM SERIAL PATIENT SERUM VALUES. 25 Units are mL/min/1.73 m2 Chronic Kidney Disease Staging per NKF: Stage I & II GFR >=60 Normal to Mildly Decreased Stage III GFR 30-59 Moderately Decreased Stage IV GFR 15-29 Severely Decreased Stage V GFR <15 Very Little GFR Left ESRD GFR <15 on PURCHASING OFFICER 26 A Pathologist review of this differential can help in the evaluation of a differential diagnosis. Please order a Pathologist Review (PERISM) if deemed necessary. Results are subject to change if a Pathologist Review is performed. 27 THE CA 19-9 ASSAY IS PERFORM ED ON THE [employer] BY CHEMILUMINESCENCE AND SHOULD NOT BE COMPARED INTERCHANGEABLY WITH OTHER METHODS. IT SHOULD NOT BE USED ALONE A SCREENING TEST OR DIAGNOSIS FOR THE PRESENCE OR ABSENCE OF MALIGNANT DISEASE. PREDICTIONS OF DISEASE RECURRENCE SHOULD NOT BE BASED SOLELY ON VALUES OBTAINED FROM SERIAL PATIENT SERUM VALUES. 28 A Pathologist review of this differential can help in the evaluation of a differential diagnosis. Please order a Pathologist Review (PERISM) if deemed necessary. Results are subject to change if a Pathologist Review is performed. 29 Units are mL/min/1.73 m2 Chronic Kidney Disease Staging per NKF: Stage I & II GFR >=60 Normal to Mildly Decreased Stage III GFR 30-59 Moderately Decreased Stage IV GFR 15-29 Severely Decreased Stage V GFR <15 Very Little GFR Left ESRD GFR <15 on PURCHASING OFFICER 30 CHRONIC KIDNEY DISEASE STAGI NG PER NKF: [...] ADOLESCENTS REPRESENTS INDIVIDUALA AGED 2-19 YEARS EXCLUSIVE. 31 CKD-EPI 32 CKD-EPI 33 A Pathologist review of this differential can help in the evaluation of a differential diagnosis. Please order a Pathologist Review (PERISM) if deemed necessary. Results are subject to change if a Pathologist Review is performed. 34 Units are mL/min/1.73 m2 Chronic Kidney Disease Staging per NKF: Stage I & II GFR >=60 Normal to Mildly Decreased Stage III GFR 30-59 Moderately Decreased Stage IV GFR 15-29 Severely Decreased Stage V GFR <15 Very Little GFR Left ESRD GFR <15 on PURCHASING OFFICER Procedures Date Code Description Status 11/17/2020 62355 Office/Outpatient Established Mo d MDM 30-39 Min Completed 07/29/2020 43211 Office/Outpatient Established Mo d MDM 30-39 Min Completed Medical Devices Description No Information Available Encounters Type Date Location Provider Dx Diagnosis Office Visit 11/17/2020 11:15a [facility] Homero Sanchez M. D. 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 D. 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 09/04/2020 R73.01 Impaired fasting glucose Homero Da Silva M.D. 09/04/2020 R73.01 Impaired fasting glucose [facility] Schedule 09/04/2020 E78.2 Mixed hyperlipidemia John Sanchez M.D. 09/04/2020 E78.2 Mixed hyperlipidemia [facility] Schedule 07/29/2020 C25.1 Malignant neoplasm of body of pa Homero Earl M.D. Plan of Treatment No Information Available Functional Status Description No Information Available Mental Status Description No Information Available Referrals Description No Information Available
--- OUTSIDE RECORDS SUMMARY | 2021-01-23 15:29 | CCD | Continuity of Care Document ---
Author Author Trace SANCHEZ M.D. Organization Unknown Address [address] [address] Phone [phone] Care Team Providers Care Relationship Counselor Name Role Phone Neftali Malik Kasandra [facility] [phone] Problems Active Problems Provider Date Urolith Homero [...] CPT Code Status Date Vaccine Lot # [id number] Given 07/29/2015 Prevnar 13 Pneum o. Conj Ped. Vaccine 13 Valent (PCV13) For Im Use [id number] Given 07/24/2014 Zoster (Shingles) Vaccine [id number] Refused 02/22/2019 Influenza Virus Vaccine, Quadrivalent, Slit Virus, Im Use 3Y & Up 20540 Refused 02/13/2018 Influenza Virus Vaccine, Quadrivalent, Slit Virus, Im Use 3Y & Up [id number] Refused 02/03/2016 Influenza Virus Vaccine, Quadrivalent, Slit Virus, Im Use 3Y & Up Vital Signs Date Vital Result Comment 11/17/2020 11:02am BP Systolic 118 mmHg BP Diastolic 72 mmHg Body Temperature 98.1 F Heart Rate 76 /min Respiratory Rate 12 /min Height 68 inches 5'8" Weight 132.00 lb [place] Body Weight 154 lb BMI (Body Mass Index) 20.1 kg/m2 O2 % BldC Oximetry 94 % 07/29/2020 2:17pm BP Systolic 120 mmHg BP Diastolic 78 mmHg Body Temperature 97.9 F Heart Rate 50 /min Respiratory Rate 14 /min Height 68 inches 5'8" Weight 140.00 lb [place] Body Weight 154 lb BMI (Body Mass Index) 21.3 kg/m2 O2 % BldC Oximetry 95 % Results Test Acquired Date Facility Test Result H/L Range Note Comprehensive Metabolic Profil 01/05/2021 [facility] (Interface) [phone] Glucose, Fasting 158 mg/dL High 70-100 Blood [...] 1.3 Normal CBC With Auto Differential OB 01/05/2021 [facility] (Interface) [phone] White Blood Count 7.2 10 Normal 4.0-10.0 [...] 36.0-66.0 Lymph % 9.5 % Low 24.0-44.0 Charles [place] % 31.6 % High 2.0-8.0 Eos % 1.1 % Normal 0.0-3.0 Baso % 0.1 % Normal 0.0-1.0 Immature Granulocyte % 1.9 % Normal 0-3.0 Nucleated Red Blood Cell % 0.0 % Normal 0-0 Neutrophils # 4.0 10 Normal 1.5-8.5 Lymph # 0.7 10 Low 1.5-5.0 [place] # 2.3 10 High 0.0-0.8 Eos # 0.1 10 Normal 0.0-0.5 Baso # 0.0 10 Normal 0.0-0.2 CBC With Auto Differential OB 12/10/2020 [facility]) [phone] White Blood Count 10.7 10 High 4.0-10.0 [...] 36.0-66.0 Lymph % 7.0 % Low 24.0-44.0 [place] % 33.2 % High 2.0-8.0 Eos % 0.8 % Normal 0.0-3.0 Baso % 0.4 % Normal 0.0-1.0 Immature Granulocyte % 4.3 % High 0-3.0 Nucleated Red Blood Cell % 0.0 % Normal 0-0 Neutrophils # 5.8 10 Normal 1.5-8.5 Lymph # 0.8 10 Low 1.5-5.0 [place] # 3.5 10 High 0.0-0.8 Eos # 0.1 10 Normal 0.0-0.5 Baso # 0.0 10 Normal 0.0-0.2 Comprehensive Metabolic Profil 12/10/2020 [facility] (Interface) [phone] Glucose, Fasting 129 mg/dL High 70-100 Blood Urea Nitrogen 14 mg/dL Normal 7-18 Creatinine For GFR 0.79 mg/dL Normal 0.70-1.30 Glomerular Filtration Rate > 60.0 Normal >35 2 Sodium Level 135 mEq/L Low 136-145 Potassium [...] Albumin/Globulin Ratio 1.3 Normal Laboratory test finding 12/10/2020 [facility] (Interface) [phone] Ca19-9 Tumor Marker,Carbohydra 34727.8 U/ML High <35.0 3 Blood Culture 12/10/2020 [facility] ([facility]) [phone] Blood Culture No growth after <SEE NOTE> 4 Blood Culture [facility] [phone] Blood Culture No growth after <SEE NOTE> 5 Laboratory test finding 11/10/2020 [facility]) [phone] Cytogenetics Fish For Path So See Pathology Re < SEE NOTE> Normal 6 BCR/Abl Screen For CML Path So See Pathology Re <SEE NOTE> Normal 7 CBC With Auto Differential OB 11/06/2020 [facility]) [phone] White Blood Count 38.5 10 Critical high [...] 36.0-66.0 Lymph % 4.1 % Low 24.0-44.0 [place] % 21.0 % High 2.0-8.0 Eos % 0.1 % Normal 0.0-3.0 Baso % 0.7 % Normal 0.0-1.0 Immature Granulocyte % 11.4 % High 0-3.0 Nucleated Red Blood Cell % 0.0 % Normal 0-0 Neutrophils # 24.2 10 High 1.5-8.5 Lymph # 1.6 10 Normal 1.5-5.0 Charles [place] # 8.1 10 High 0.0-0.8 Eos # 0.0 10 Normal 0.0-0.5 Baso # 0.3 10 High 0.0-0.2 Laboratory test finding 11/06/2020 [facility]) [phone] Ca19-9 Tumor Marker,Carbohydra 6514.9 U/ML High <35.0 8 Comprehensive Metabolic Profil 11/06/2020 [facility]) [phone] Glucose, Fasting 133 mg/dL High 70-100 Blood Urea Nitrogen 16 mg/dL Normal 7-18 Creatinine For GFR 0.71 mg/dL Normal 0.70-1.30 Glomerular Filtration Rate > 60.0 Normal >35 9 Sodium Level 139 mEq/L Normal 136-145 Potassium [...] GM/DL Normal 3.2-5.2 Albumin/Globulin Ratio 1.0 Normal Istat Chem8+ Panel 10/23/2020 [facility]) [phone] iSTAT HCT 40.0 % Normal 38.0-51.0 iSTAT Glucose 232 mg/dL High 70-105 iSTAT Sodium 136 mEq/L Normal 136-145 iSTAT Potassium 3.6 mEq/L Normal 3.5-5.1 iSTAT CA++ 4.4 mg/dL Low 4.5-5.3 iSTAT Chloride 98 mEq/L Normal 98-109 iSTAT Co2 20.0 MM/L Low 23.0-27.0 iSTAT BUN 15 mg/dL Normal 8-26 iSTAT Creatinine 0.9 mg/dL Normal 0.6-1.3 Laboratory test finding 10/23/2020 [facility] ([facility]) [phone] Platelet Estimate DECREASED Normal Normal Immature Platelet Fraction 7.1 % Normal 0.0-10.91 Differential 10/23/2020 [facility]) [phone] Neutrophils 84 % High 28-66 Bands 6 % Normal < 11 Lymphocytes 2 % Low 16-44 Monocytes 8 % High 0-5 RBC Morphology NORMAL Normal CBC With Differential 10/23/2020 [facility] ([facility]) [phone] White Blood Count 23.5 10 High 4.0-10.0 10 Red Blood Count 4.14 10 Low 4.30-6.10 [...] % High 0-0 Laboratory test finding 10/23/2020 [facility] ([facility]) [phone] NT-Pro BNP 2080 pg/mL High <450 Basic Metabolic Profile 10/23/2020 [facility] ([facility]) [phone] Glucose, Fasting 215 mg/dL High 70-100 Blood Urea Nitrogen 15 mg/dL Normal 7-18 Creatinine For GFR 1.13 mg/dL Normal 0.70-1.30 Glomerular Filtration Rate > 60.0 Normal >35 1 1 Sodium Level 137 mEq/L Normal 136-145 Potassium Serum 3.6 mEq/L Normal 3.5-5.1 Chloride Level 102 mEq/L Normal 98-107 Carbon Dioxide Level 24 mEq/L Normal 21-32 Anion Gap 11 mEq/L Normal 8-16 Calcium Level 8.7 mg/dL Low 8.8-10.2 Cardiac Marker Panel 10/23/2020 [facility]) [phone] CPK Creatine Phosphokinase 24 U/L Low 39-30 8 CK-MB Value Mass < 1.0 NG/ML Normal <3.6 MB/CK Relative Index 4.17 High < Or =4 12 Troponin I 0.15 NG/ML High < 0.10 13 Laboratory test finding 10/23/2020 [facility] (Interface) [phone] Partial Thromboplastin Time 30.9 seconds Normal 25 .9-37.0 Prothrombin Time/Inr 10/23/2020 [facility]) [phone] Prothrombin Time 15.9 seconds High 12.7-14.5 Inr 1.23 Normal 14 Influenxa A/B RSV Covid Amp 10/23/2020 [facility] (Interface) [phone] Influenza A Amplification NEGATIVE Normal Negati ve 15 Influenza B Amplification NEGATIVE Normal Negative 16 RSV Amplification NEGATIVE Normal Negative 17 Sars Covid-19 Amplification NEGATIVE Normal Negative 18 Laboratory test finding 10/23/2020 [facility] (Interface) [phone] Lactic Acid Sepsis Protocol 3.0 mmol/L Critical high 0 .4-2.0 19 Liver Profile 10/23/2020 [facility] ([facility]) [phone] Ast/Sgot 13 U/L Normal 7-37 Alt/SGPT 17 U/L Normal 12-78 Alkaline Phosphatase 132 U/L High 45-117 Bilirubin,Total 0.9 mg/dL Normal 0.2-1.0 Bilirubin,Direct 0.4 mg/dL High 0.0-0.2 Total Protein 5.9 GM/DL Low 6.4-8.2 Albumin 3.3 GM/DL Normal 3.2-5.2 Albumin/Globulin Ratio 1.3 Normal Coronavirus 2019 Nasopharygeal 10/15/2020 [facility] ([facility]) [phone] Coronavirus 2019 Nasopharygeal ASSAY INFORMATIO <SEE N OTE> 20 Laboratory test finding 10/08/2020 [facility] (Interface) [phone] Ca19-9 Tumor Marker,Carbohydra 6310.2 U/ML High <35.0 21 Comprehensive Metabolic Profil 10/08/2020 [facility] ([facility]) [phone] Glucose, Fasting 131 mg/dL High 70-100 Blood Urea Nitrogen 15 mg/dL Normal 7-18 Creatinine For GFR 0.73 mg/dL Normal 0.70-1.30 Glomerular Filtration Rate > 60.0 Normal >35 2 2 Sodium Level 139 mEq/L Normal 136-145 [...] Normal CBC With Auto Differential OB 10/08/2020 [facility]) [phone] White Blood Count 9.8 10 Normal 4.0-10.0 23 Red Blood Count 4.82 10 Normal 4.30-6.10 [...] 36.0-66.0 Lymph % 8.1 % Low 24.0-44.0 Charles [place] % 34.9 % High 2.0-8.0 Eos % 1.0 % Normal 0.0-3.0 Baso % 0.3 % Normal 0.0-1.0 Immature Granulocyte % 2.5 % Normal 0-3.0 Nucleated Red Blood Cell % 0.0 % Normal 0-0 Neutrophils # 5.2 10 Normal 1.5-8.5 Lymph # 0.8 10 Low 1.5-5.0 [place] # 3.4 10 High 0.0-0.8 Eos # 0.1 10 Normal 0.0-0.5 Baso # 0.0 10 Normal 0.0-0.2 Laboratory test finding 09/25/2020 [facility] ([facility]) [phone] Ca19-9 Tumor Marker,Carbohydra 5746.2 U/ML High <35.0 24 CBC With Auto Differential OB 09/18/2020 [facility]) [phone] White Blood Count 8.0 10 Normal 4.0-10.0 25 Red Blood Count 4.52 10 Normal 4.30-6.10 [...] 36.0-66.0 Lymph % 10.8 % Low 24.0-44.0 Charles [place] % 37.8 % High 2.0-8.0 Eos % 1.8 % Normal 0.0-3.0 Baso % 0.3 % Normal 0.0-1.0 Immature Granulocyte % 2.3 % Normal 0-3.0 Nucleated Red Blood Cell % 0.0 % Normal 0-0 Neutrophils # 3.8 10 Normal 1.5-8.5 Lymph # 0.9 10 Low 1.5-5.0 Charles [place] # 3.0 10 High 0.0-0.8 Eos # 0.1 10 Normal 0.0-0.5 Baso # 0.0 10 Normal 0.0-0.2 Comprehensive Metabolic Profil 09/18/2020 [facility] ([facility]) [phone] Glucose, Fasting 120 mg/dL High 70-100 Blood Urea Nitrogen 13 mg/dL Normal 7-18 Creatinine For GFR 0.74 mg/dL Normal 0.70-1.30 Glomerular Filtration Rate > 60.0 Normal >35 2 6 Sodium Level 140 mEq/L Normal 136-145 Potassium [...] Ratio 1.7 Normal Laboratory test finding 09/04/2020 [facility] Hemoglobin A1c 6.1 % 4.50-6.20 CMP 09/04/2020 [facility] Glu 128 mg/dL High 70 - 110 27 BUN 16 mg/dL 8 - 23 Creat [...] Gap 16 mmol/L eGFR 103 # Calc 28 eGFR Non-Afr. Malagasy 89 # Calc 29 Lipid Panel 09/04/2020 [facility] Chol 171 mg/dL 0 - 200 Trig 58 mg/dL 35 - 200 HDL 53 mg/dL 35 - 55 LDL_C 106 Calc 75 - 129 Cho/HDL Ratio 3.2 CALC CBC With Auto Differential OB 08/31/2020 [facility] (Interface) [phone] White Blood Count 9.6 10 Normal 4.0-10.0 30 Red Blood Count 4.52 10 Normal 4.30-6.10 [...] 36.0-66.0 Lymph % 6.8 % Low 24.0-44.0 Charles [place] % 37.0 % High 2.0-8.0 Eos % 0.8 % Normal 0.0-3.0 Baso % 0.2 % Normal 0.0-1.0 Immature Granulocyte % 1.6 % Normal 0-3.0 Nucleated Red Blood Cell % 0.0 % Normal 0-0 Neutrophils # 5.2 10 Normal 1.5-8.5 Lymph # 0.7 10 Low 1.5-5.0 [place] # 3.6 10 High 0.0-0.8 Eos # 0.1 10 Normal 0.0-0.5 Baso # 0.0 10 Normal 0.0-0.2 Comprehensive Metabolic Profil 08/31/2020 [facility] ([facility]) [phone] Glucose, Fasting 136 mg/dL High 70-100 Blood Urea Nitrogen 18 mg/dL Normal 7-18 Creatinine For GFR 0.86 mg/dL Normal 0.70-1.30 Glomerular Filtration Rate > 60.0 Normal >35 3 1 Sodium Level 139 mEq/L Normal 136-145 [...] Little GFR Left ESRD GFR <15 on RECRUITER SPECIALIST 2 Units are mL/min/1.73 m2 Chronic Kidney Disease Staging per NKF: Stage I & II GFR >=60 Normal to Mildly Decreased Stage III GFR 30-59 Moderately Decreased Stage IV GFR 15-29 Severely Decreased Stage V GFR <15 Very Little GFR Left ESRD GFR <15 on RECRUITER SPECIALIST 3 THE CA 19-9 ASSAY IS PERFORM ED ON THE [facility] BY CHEMILUMINESCENCE AND SHOULD NOT BE COMPARED INTERCHANGEABLY WITH OTHER METHODS. IT SHOULD NOT BE USED ALONE A SCREENING TEST OR DIAGNOSIS FOR THE PRESENCE OR ABSENCE OF MALIGNANT DISEASE. PREDICTIONS OF DISEASE RECURRENCE SHOULD NOT BE BASED SOLELY ON VALUES OBTAINED FROM SERIAL PATIENT SERUM VALUES. 4 No growth after 72 hours . A ll specimens observed for 5 days. Results final at that time. No growth after 48 hours . All specimens observed for 5 days. Results final at that time. No growth after 24 hours . All specimens observed for 5 days. Results final at that time. NO GROWTH AFTER 5 DAYS 5 No growth after 72 hours . A ll specimens observed for 5 days. Results final at that time. No growth after 48 hours . All specimens observed for 5 days. Results final at that time. No growth after 24 hours . All specimens observed for 5 days. Results final at that time. NO GROWTH AFTER 5 DAYS 6 See Pathology Report Specimen Collection for Pathology Reference Lab Testing. Refer to [facility] Pathology Report for Results:[id number] 7 See Pathology Report Specimen Collection for Pathology Reference Lab Testing. Refer to [facility] Pathology Report for Results: [id number] 8 THE CA 19-9 ASSAY IS PERFORM ED ON THE [facility] BY CHEMILUMINESCENCE AND SHOULD NOT BE COMPARED [...] Little GFR Left ESRD GFR <15 on RECRUITER SPECIALIST 10 A Pathologist review of this differential can help in the evaluation of a differential diagnosis. Please order a Pathologist Review (PERISM) if deemed necessary. Results are subject to change if a Pathologist Review is performed. 11 Units are mL/min/1.73 m2 Chronic Kidney Disease Staging per NKF: Stage I & II GFR >=60 Normal to Mildly Decreased Stage III GFR 30-59 Moderately Decreased Stage IV GFR 15-29 Severely Decreased Stage V GFR <15 Very Little GFR Left ESRD GFR <15 on RECRUITER SPECIALIST 12 DIAGNOSIS CRITERIA MMB ng/ml Relative Index (RI) NON-AMI < or = 5 N/A PRINCE ZONE > 5 < or = 4 AMI > 5 > 4 13 Troponin I Reference Interva l for [employer] [place] LOCI: 99th Percentile= 0.00-0.045 ng/ml Risk Stratification: <= 0.10 ng/ml Decreased Risk for Adverse Clinical Events. 0.10-1.50 ng/ml Increased Risk for Adv erse Clinical Events. Evaluation of additional criterion and/or repeat testing in 2-6 hours is suggested to rule out myocardial damage. >= 1.50 ng/ml Indicative of Myocardial Injury. 14 THERAPUTIC HUMAN INR VALUES INDICATIONS NORMAL RANGES PROPHYLAXIS/TREATMENT OF: VENOUS THROMBOSIS 2.0-3.0 PULMONARY EMBOLISM 2.0-3.0 PREVENTION OF SYSTEMIC EMBOLISM FROM: TISSUE HEART VALVES 2.0-3.0 ACUTE MYOCARDIAL INFARCTION 2.0-3.0 VALVULAR HEART DISEASE 2.0-3.0 ATRIAL FIBRILLATION 2.0-3.0 MECHANICAL VALVES(HIGH RISK) 2.5-3.5 RECURRENT MYOCARDIAL INFARCTION 2.5-3.5 15 Negative results do not prec lude influenza or RSV virus infection and should not be used as the sole basis for treatment or other patient management decisions. 16 Negative results do not prec lude influenza or RSV virus infection and should not be used as the sole basis for treatment or other patient management decisions. 17 Negative results do not prec lude influenza or RSV virus infection and should not be used as the sole basis for treatment or other patient management decisions. 18 A false negative result may occur if [...] pathogens. DISCLAIMER: Testing was performed using the [employer] SARS-CoV-2 test. This test was developed and its performance characteristics determined by [facility] [employer]. This test has not been FDA cleared [...] the authorization is terminated or revoked sooner. 19 Y/N query for Sepsis Lactate Rule: Y 20 ASSAY INFORMATION: Real Time RT-PCR NOTE: The COVID-19 assay has been cleared by the U.S. Food and Drug Administration under the Emergency Use Authorization (EUA). [facility] and [facility] are designated as high complexity laboratories by the Clinical Laboratory Improvement Amendments of 1988(CLIA) and are qualified to perform this test. Not Detected 21 THE CA 19-9 ASSAY IS PERFORM ED ON THE [facility] BY CHEMILUMINESCENCE AND SHOULD NOT BE COMPARED INTERCHANGEABLY WITH OTHER METHODS. IT SHOULD NOT BE USED ALONE A SCREENING TEST OR DIAGNOSIS FOR THE PRESENCE OR ABSENCE OF MALIGNANT DISEASE. PREDICTIONS OF DISEASE RECURRENCE SHOULD NOT BE BASED SOLELY ON VALUES OBTAINED FROM SERIAL PATIENT SERUM VALUES. 22 Units are mL/min/1.73 m2 Chronic Kidney Disease Staging per NKF: Stage I & II GFR >=60 Normal to Mildly Decreased Stage III GFR 30-59 Moderately Decreased Stage IV GFR 15-29 Severely Decreased Stage V GFR <15 Very Little GFR Left ESRD GFR <15 on RECRUITER SPECIALIST 23 A Pathologist review of this differential can help in the evaluation of a differential diagnosis. Please order a Pathologist Review (PERISM) if deemed necessary. Results are subject to change if a Pathologist Review is performed. 24 THE CA 19-9 ASSAY IS PERFORM ED ON THE [facility] BY CHEMILUMINESCENCE AND SHOULD NOT BE COMPARED INTERCHANGEABLY WITH OTHER METHODS. IT SHOULD NOT BE USED ALONE A SCREENING TEST OR DIAGNOSIS FOR THE PRESENCE OR ABSENCE OF MALIGNANT DISEASE. PREDICTIONS OF DISEASE RECURRENCE SHOULD NOT BE BASED SOLELY ON VALUES OBTAINED FROM SERIAL PATIENT SERUM VALUES. 25 A Pathologist review of this differential can help in the evaluation of a differential diagnosis. Please order a Pathologist Review (PERISM) if deemed necessary. Results are subject to change if a Pathologist Review is performed. 26 Units are mL/min/1.73 m2 Chronic Kidney Disease Staging per NKF: Stage I & II GFR >=60 Normal to Mildly Decreased Stage III GFR 30-59 Moderately Decreased Stage IV GFR 15-29 Severely Decreased Stage V GFR <15 Very Little GFR Left ESRD GFR <15 on RECRUITER SPECIALIST 27 CHRONIC KIDNEY DISEASE STAGI NG PER NKF: [...] ADOLESCENTS REPRESENTS INDIVIDUALA AGED 2-19 YEARS EXCLUSIVE. 28 CKD-EPI 29 CKD-EPI 30 A Pathologist review of this differential can help in the evaluation of a differential diagnosis. Please order a Pathologist Review (PERISM) if deemed necessary. Results are subject to change if a Pathologist Review is performed. 31 Units are mL/min/1.73 m2 Chronic Kidney Disease Staging per NKF: Stage I & II GFR >=60 Normal to Mildly Decreased Stage III GFR 30-59 Moderately Decreased Stage IV GFR 15-29 Severely Decreased Stage V GFR <15 Very Little GFR Left ESRD GFR <15 on RECRUITER SPECIALIST Procedures Date Code Description Status 11/17/2020 37163 Office/Outpatient Established Mo d MDM 30-39 Min Completed 07/29/2020 62537 Office/Outpatient Established Mo d MDM 30-39 Min Completed Medical Devices Description No Information Available Encounters Type Date Location Provider Dx Diagnosis Office Visit 11/17/2020 11:15a [facility] Homero Sanchez M. D. 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 D. 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 09/04/2020 R73.01 Impaired fasting glucose Homero Da Silva M.D. 09/04/2020 R73.01 Impaired fasting [facility]2020 E78.2 Mixed hyperlipidemia John Sanchez M.D. 09/04/2020 E78.2 Mixed hyperlipidemia [facility] Schedule 07/29/2020 C25.1 Malignant neoplasm of body of pa Homero Earl M.D. Plan of Treatment No Information Available Functional Status Description No Information Available Mental Status Description No Information Available Referrals Description No Information Available
--- OUTSIDE RECORDS SUMMARY | 2021-01-23 15:29 | CCD | Continuity of Care Document ---
Author Author Trace SANCHEZ M.D. Organization Unknown Address [address] [address] Phone [phone] Care Team Providers Care Labor Representative Name Role Phone Neftali Malik Kasandra [facility] [phone] Problems Active Problems Provider Date Urolith Homero [...] CPT Code Status Date Vaccine Lot # 15865 Given 07/29/2015 Prevnar 13 Pneum o. Conj Ped. Vaccine 13 Valent (PCV13) For Im Use 52951 Given 07/24/2014 Zoster (Shingles) Vaccine 45315 Refused 02/22/2019 Influenza Virus Vaccine, Quadrivalent, Slit Virus, Im Use 3Y & Up [id number] Refused 02/13/2018 Influenza Virus Vaccine, Quadrivalent, Slit Virus, Im Use 3Y & Up 91742 Refused 02/03/2016 Influenza Virus Vaccine, Quadrivalent, Slit Virus, Im Use 3Y & Up Vital Signs Date Vital Result Comment 11/17/2020 11:02am BP Systolic 118 mmHg BP Diastolic 72 mmHg Body Temperature 98.1 F Heart Rate 76 /min Respiratory Rate 12 /min Height 68 inches 5'8" Weight 132.00 lb [place] Body Weight 154 lb BMI (Body Mass Index) 20.1 kg/m2 O2 % BldC Oximetry 94 % 07/29/2020 2:17pm BP Systolic 120 mmHg BP Diastolic 78 mmHg Body Temperature 97.9 F Heart Rate 50 /min Respiratory Rate 14 /min Height 68 inches 5'8" Weight 140.00 lb [place] Body Weight 154 lb BMI (Body Mass Index) 21.3 kg/m2 O2 % BldC Oximetry 95 % Results Test Acquired Date Facility Test Result H/L Range Note CBC With Auto Differential OB 01/05/2021 [facility] (Interface) [phone] White Blood Count 7.2 10 Normal 4.0-10.0 [...] 36.0-66.0 Lymph % 9.5 % Low 24.0-44.0 [place] % 31.6 % High 2.0-8.0 Eos % 1.1 % Normal 0.0-3.0 Baso % 0.1 % Normal 0.0-1.0 Immature Granulocyte % 1.9 % Normal 0-3.0 Nucleated Red Blood Cell % 0.0 % Normal 0-0 Neutrophils # 4.0 10 Normal 1.5-8.5 Lymph # 0.7 10 Low 1.5-5.0 [place] # 2.3 10 High 0.0-0.8 Eos # 0.1 10 Normal 0.0-0.5 Baso # 0.0 10 Normal 0.0-0.2 CBC With Auto Differential OB 12/10/2020 [facility]) [phone] White Blood Count 10.7 10 High 4.0-10.0 [...] 36.0-66.0 Lymph % 7.0 % Low 24.0-44.0 [place] % 33.2 % High 2.0-8.0 Eos % 0.8 % Normal 0.0-3.0 Baso % 0.4 % Normal 0.0-1.0 Immature Granulocyte % 4.3 % High 0-3.0 Nucleated Red Blood Cell % 0.0 % Normal 0-0 Neutrophils # 5.8 10 Normal 1.5-8.5 Lymph # 0.8 10 Low 1.5-5.0 [place] # 3.5 10 High 0.0-0.8 Eos # 0.1 10 Normal 0.0-0.5 Baso # 0.0 10 Normal 0.0-0.2 Comprehensive Metabolic Profil 12/10/2020 [facility]) [phone] Glucose, Fasting 129 mg/dL High 70-100 Blood Urea Nitrogen 14 mg/dL Normal 7-18 Creatinine For GFR 0.79 mg/dL Normal 0.70-1.30 Glomerular Filtration Rate > 60.0 Normal >35 1 Sodium Level 135 mEq/L Low 136-145 Potassium [...] Ratio 1.3 Normal Laboratory test finding 12/10/2020 [facility] (Interface) [phone] Ca19-9 Tumor Marker,Carbohydra 87756.8 U/ML High <35.0 2 Blood Culture 12/10/2020 [facility] [phone] Blood Culture No growth after <SEE NOTE> 3 Blood Culture 12/10/2020 [facility] [phone] Blood Culture No growth after <SEE NOTE> 4 Laboratory test finding 11/10/2020 [facility] (Interface) [phone] Cytogenetics Fish For Path So See Pathology Re < SEE NOTE> Normal 5 BCR/Abl Screen For CML Path So See Pathology Re <SEE NOTE> Normal 6 CBC With Auto Differential OB 11/06/2020 [facility]) [phone] White Blood Count 38.5 10 Critical high [...] 36.0-66.0 Lymph % 4.1 % Low 24.0-44.0 [place] % 21.0 % High 2.0-8.0 Eos % 0.1 % Normal 0.0-3.0 Baso % 0.7 % Normal 0.0-1.0 Immature Granulocyte % 11.4 % High 0-3.0 Nucleated Red Blood Cell % 0.0 % Normal 0-0 Neutrophils # 24.2 10 High 1.5-8.5 Lymph # 1.6 10 Normal 1.5-5.0 [place] # 8.1 10 High 0.0-0.8 Eos # 0.0 10 Normal 0.0-0.5 Baso # 0.3 10 High 0.0-0.2 Comprehensive Metabolic Profil 11/06/2020 [facility] (Interface) [phone] Glucose, Fasting 133 mg/dL High 70-100 Blood Urea Nitrogen 16 mg/dL Normal 7-18 Creatinine For GFR 0.71 mg/dL Normal 0.70-1.30 Glomerular Filtration Rate > 60.0 Normal >35 7 Sodium Level 139 mEq/L Normal 136-145 Potassium [...] Ratio 1.0 Normal Laboratory test finding 11/06/2020 [facility] (Interface) [phone] Ca19-9 Tumor Marker,Carbohydra 6514.9 U/ML High <35.0 8 Laboratory test finding 10/23/2020 [facility] (Interface) [phone] NT-Pro BNP 2080 pg/mL High <450 Istat Chem8+ Panel 10/23/2020 [facility] ([facility]) [phone] iSTAT HCT 40.0 % Normal 38.0-51.0 iSTAT Glucose 232 mg/dL High 70-105 iSTAT Sodium 136 mEq/L Normal 136-145 iSTAT Potassium 3.6 mEq/L Normal 3.5-5.1 iSTAT CA++ 4.4 mg/dL Low 4.5-5.3 iSTAT Chloride 98 mEq/L Normal 98-109 iSTAT Co2 20.0 MM/L Low 23.0-27.0 iSTAT BUN 15 mg/dL Normal 8-26 iSTAT Creatinine 0.9 mg/dL Normal 0.6-1.3 Laboratory test finding 10/23/2020 [facility] (Interface) [phone] Platelet Estimate DECREASED Normal Normal Immature Platelet Fraction 7.1 % Normal 0.0-10.91 Differential 10/23/2020 [facility]) [phone] Neutrophils 84 % High 28-66 Bands 6 % Normal < 11 Lymphocytes 2 % Low 16-44 Monocytes 8 % High 0-5 RBC Morphology NORMAL Normal CBC With Differential 10/23/2020 [facility] (Interface) [phone] White Blood Count 23.5 10 High 4.0-10.0 9 Red Blood Count 4.14 10 Low 4.30-6.10 Hemoglobin 13.6 g/dL Normal 13.5-17.5 Hematocrit 38.9 % Low 42.0-52.0 Mean Corpuscular Volume 94.0 fl Normal 80.0-96.0 Mean Corpuscular Hemoglobin 32.9 pg Normal 27.0-33.0 Mean Corpuscular HGB Conc 35.0 g/dL Normal 32.0-36.5 Red Cell Distribution Width 12.2 % Normal 11.5-14.5 Platelet Count, Automated 49 10 Low 150-450 Nucleated Red Blood Cell % 0.1 % High 0-0 Basic Metabolic Profile 10/23/2020 [facility] (Interface) [phone] Glucose, Fasting 215 mg/dL High 70-100 Blood Urea Nitrogen 15 mg/dL Normal 7-18 Creatinine For GFR 1.13 mg/dL Normal 0.70-1.30 Glomerular Filtration Rate > 60.0 Normal >35 1 0 Sodium Level 137 mEq/L Normal 136-145 Potassium Serum 3.6 mEq/L Normal 3.5-5.1 Chloride Level 102 mEq/L Normal 98-107 Carbon Dioxide Level 24 mEq/L Normal 21-32 Anion Gap 11 mEq/L Normal 8-16 Calcium Level 8.7 mg/dL Low 8.8-10.2 Cardiac Marker Panel 10/23/2020 [facility] ( Interface) [phone] CPK Creatine Phosphokinase 24 U/L Low 39-30 8 CK-MB Value Mass < 1.0 NG/ML Normal <3.6 MB/CK Relative Index 4.17 High < Or =4 11 Troponin I 0.15 NG/ML High < 0.10 12 Laboratory test finding 10/23/2020 [facility] (Interface) [phone] Partial Thromboplastin Time 30.9 seconds Normal 25 .9-37.0 Prothrombin Time/Inr 10/23/2020 [facility] ( Interface) [phone] Prothrombin Time 15.9 seconds High 12.7-14.5 Inr 1.23 Normal 13 Influenxa A/B RSV Covid Amp 10/23/2020 [facility] (Interface) [phone] Influenza A Amplification NEGATIVE Normal Negati ve 14 Influenza B Amplification NEGATIVE Normal Negative 15 RSV Amplification NEGATIVE Normal Negative 16 Sars Covid-19 Amplification NEGATIVE Normal Negative 17 Laboratory test finding 10/23/2020 [facility] (Interface) [phone] Lactic Acid Sepsis Protocol 3.0 mmol/L Critical high 0 .4-2.0 18 Liver Profile 10/23/2020 [facility] ([facility]) [phone] Ast/Sgot 13 U/L Normal 7-37 Alt/SGPT 17 U/L Normal 12-78 Alkaline Phosphatase 132 U/L High 45-117 Bilirubin,Total 0.9 mg/dL Normal 0.2-1.0 Bilirubin,Direct 0.4 mg/dL High 0.0-0.2 Total Protein 5.9 GM/DL Low 6.4-8.2 Albumin 3.3 GM/DL Normal 3.2-5.2 Albumin/Globulin Ratio 1.3 Normal Coronavirus 2019 Nasopharygeal 10/15/2020 [facility]) [phone] Coronavirus 2019 Nasopharygeal ASSAY INFORMATIO <SEE N OTE> 19 Laboratory test finding 10/08/2020 [facility] ([facility]) [phone] Ca19-9 Tumor Marker,Carbohydra 6310.2 U/ML High <35.0 20 Comprehensive Metabolic Profil 10/08/2020 [facility]) [phone] Glucose, Fasting 131 mg/dL High 70-100 Blood Urea Nitrogen 15 mg/dL Normal 7-18 Creatinine For GFR 0.73 mg/dL Normal 0.70-1.30 Glomerular Filtration Rate > 60.0 Normal >35 2 1 Sodium Level 139 mEq/L Normal 136-145 [...] Normal CBC With Auto Differential OB 10/08/2020 [facility]) [phone] White Blood Count 9.8 10 Normal 4.0-10.0 22 Red Blood Count 4.82 10 Normal 4.30-6.10 [...] 36.0-66.0 Lymph % 8.1 % Low 24.0-44.0 [place] % 34.9 % High 2.0-8.0 Eos % 1.0 % Normal 0.0-3.0 Baso % 0.3 % Normal 0.0-1.0 Immature Granulocyte % 2.5 % Normal 0-3.0 Nucleated Red Blood Cell % 0.0 % Normal 0-0 Neutrophils # 5.2 10 Normal 1.5-8.5 Lymph # 0.8 10 Low 1.5-5.0 [place] # 3.4 10 High 0.0-0.8 Eos # 0.1 10 Normal 0.0-0.5 Baso # 0.0 10 Normal 0.0-0.2 Laboratory test finding 09/25/2020 [facility] (Interface) [phone] Ca19-9 Tumor Marker,Carbohydra 5746.2 U/ML High <35.0 23 CBC With Auto Differential OB 09/18/2020 [facility] (Interface) [phone] White Blood Count 8.0 10 Normal 4.0-10.0 24 Red Blood Count 4.52 10 Normal 4.30-6.10 [...] 36.0-66.0 Lymph % 10.8 % Low 24.0-44.0 [place] % 37.8 % High 2.0-8.0 Eos % 1.8 % Normal 0.0-3.0 Baso % 0.3 % Normal 0.0-1.0 Immature Granulocyte % 2.3 % Normal 0-3.0 Nucleated Red Blood Cell % 0.0 % Normal 0-0 Neutrophils # 3.8 10 Normal 1.5-8.5 Lymph # 0.9 10 Low 1.5-5.0 [place] # 3.0 10 High 0.0-0.8 Eos # 0.1 10 Normal 0.0-0.5 Baso # 0.0 10 Normal 0.0-0.2 Comprehensive Metabolic Profil 09/18/2020 [facility] ([facility]) [phone] Glucose, Fasting 120 mg/dL High 70-100 Blood Urea Nitrogen 13 mg/dL Normal 7-18 Creatinine For GFR 0.74 mg/dL Normal 0.70-1.30 Glomerular Filtration Rate > 60.0 Normal >35 2 5 Sodium Level 140 mEq/L Normal 136-145 Potassium [...] Ratio 1.7 Normal Laboratory test finding 09/04/2020 [facility] Hemoglobin A1c 6.1 % 4.50-6.20 CMP 09/04/2020 [facility] Glu 128 mg/dL High 70 - 110 26 BUN 16 mg/dL 8 - 23 Creat [...] Gap 16 mmol/L eGFR 103 # Calc 27 eGFR Non-Afr. [place] 89 # Calc 28 Lipid Panel 09/04/2020 [facility] Chol 171 mg/dL 0 - 200 Trig 58 mg/dL 35 - 200 HDL 53 mg/dL 35 - 55 LDL_C 106 Calc 75 - 129 Cho/HDL Ratio 3.2 CALC CBC With Auto Differential OB 08/31/2020 [facility] (Interface) [phone] White Blood Count 9.6 10 Normal 4.0-10.0 29 Red Blood Count [...] 36.0-66.0 Lymph % 6.8 % Low 24.0-44.0 [place] % 37.0 % High 2.0-8.0 Eos % 0.8 % Normal 0.0-3.0 Baso % 0.2 % Normal 0.0-1.0 Immature Granulocyte % 1.6 % Normal 0-3.0 Nucleated Red Blood Cell % 0.0 % Normal 0-0 Neutrophils # 5.2 10 Normal 1.5-8.5 Lymph # 0.7 10 Low 1.5-5.0 [place] # 3.6 10 High 0.0-0.8 Eos # 0.1 10 Normal 0.0-0.5 Baso # 0.0 10 Normal 0.0-0.2 Comprehensive Metabolic Profil 08/31/2020 [facility] (Interface) [phone] Glucose, Fasting 136 mg/dL High 70-100 Blood Urea Nitrogen 18 mg/dL Normal 7-18 Creatinine For GFR 0.86 mg/dL Normal 0.70-1.30 Glomerular Filtration Rate > 60.0 Normal >35 3 0 Sodium Level 139 mEq/L Normal 136-145 Potassium [...] Little GFR Left ESRD GFR <15 on PROTOTYPER 2 THE CA 19-9 ASSAY IS PERFORM ED ON THE [employer] BY CHEMILUMINESCENCE AND SHOULD NOT BE COMPARED INTERCHANGEABLY WITH OTHER METHODS. IT SHOULD NOT BE USED ALONE A SCREENING TEST OR DIAGNOSIS FOR THE PRESENCE OR ABSENCE OF MALIGNANT DISEASE. PREDICTIONS OF DISEASE RECURRENCE SHOULD NOT BE BASED SOLELY ON VALUES OBTAINED FROM SERIAL PATIENT SERUM VALUES. 3 No growth after 72 hours . A ll specimens observed for 5 days. Results final at that time. No growth after 48 hours . All specimens observed for 5 days. Results final at that time. No growth after 24 hours . All specimens observed for 5 days. Results final at that time. NO GROWTH AFTER 5 DAYS 4 No growth after 72 hours . A ll specimens observed for 5 days. Results final at that time. No growth after 48 hours . All specimens observed for 5 days. Results final at that time. No growth after 24 hours . All specimens observed for 5 days. Results final at that time. NO GROWTH AFTER 5 DAYS 5 See Pathology Report Specimen Collection for Pathology Reference Lab Testing. Refer to [facility] Pathology Report for Results:[id number] See Pathology Report Specimen Collection for Pathology Reference Lab Testing. Refer to [facility] Pathology Report for Results: [id number] Units are mL/min/1.73 m2 Chronic Kidney Disease Staging per NKF: Stage I & II GFR >=60 Normal to Mildly Decreased Stage III GFR 30-59 Moderately Decreased Stage IV GFR 15-29 Severely Decreased Stage V GFR <15 Very Little GFR Left ESRD GFR <15 on PROTOTYPER 8 THE CA 19-9 ASSAY IS PERFORM ED ON THE [employer] BY CHEMILUMINESCENCE AND SHOULD NOT BE COMPARED INTERCHANGEABLY WITH OTHER METHODS. IT SHOULD NOT BE USED ALONE A SCREENING TEST OR DIAGNOSIS FOR THE PRESENCE OR ABSENCE OF MALIGNANT DISEASE. PREDICTIONS OF DISEASE RECURRENCE SHOULD NOT BE BASED SOLELY ON VALUES OBTAINED FROM SERIAL PATIENT SERUM VALUES. 9 A Pathologist review of this differential can help in the evaluation of a differential diagnosis. Please order a Pathologist Review (PERISM) if deemed necessary. Results are subject to change if a Pathologist Review is performed. 10 Units are mL/min/1.73 m2 Chronic Kidney Disease Staging per NKF: Stage I & II GFR >=60 Normal to Mildly Decreased Stage III GFR 30-59 Moderately Decreased Stage IV GFR 15-29 Severely Decreased Stage V GFR <15 Very Little GFR Left ESRD GFR <15 on PROTOTYPER 11 DIAGNOSIS CRITERIA MMB ng/ml Relative Index (RI) NON-AMI < or = 5 N/A PRINCE ZONE > 5 < or = 4 AMI > 5 > 4 12 Troponin I Reference Interva l for Siemens [place] LOCI: 99th Percentile= 0.00-0.045 ng/ml Risk Stratification: <= 0.10 ng/ml Decreased Risk for Adverse Clinical Events. 0.10-1.50 ng/ml Increased Risk for Adv erse Clinical Events. Evaluation of additional criterion and/or repeat testing in 2-6 hours is suggested to rule out myocardial damage. >= 1.50 ng/ml Indicative of Myocardial Injury. 13 THERAPUTIC HUMAN INR VALUES INDICATIONS NORMAL RANGES PROPHYLAXIS/TREATMENT OF: VENOUS THROMBOSIS 2.0-3.0 PULMONARY EMBOLISM 2.0-3.0 PREVENTION OF SYSTEMIC EMBOLISM FROM: TISSUE HEART VALVES 2.0-3.0 ACUTE MYOCARDIAL INFARCTION 2.0-3.0 VALVULAR HEART DISEASE 2.0-3.0 ATRIAL FIBRILLATION 2.0-3.0 MECHANICAL VALVES(HIGH RISK) 2.5-3.5 RECURRENT MYOCARDIAL INFARCTION 2.5-3.5 14 Negative results do not prec lude influenza or RSV virus infection and should not be used as the sole basis for treatment or other patient management decisions. 15 Negative results do not prec lude influenza or RSV virus infection and should not be used as the sole basis for treatment or other patient management decisions. 16 Negative results do not prec lude influenza or RSV virus infection and should not be used as the sole basis for treatment or other patient management decisions. 17 A false negative result may occur if [...] pathogens. DISCLAIMER: Testing was performed using the [employer] SARS-CoV-2 test. This test was developed and its performance characteristics determined by [employer]. This test has not been FDA cleared [...] the authorization is terminated or revoked sooner. 18 Y/N query for Sepsis Lactate Rule: Y 19 ASSAY INFORMATION: Real Time RT-PCR NOTE: The COVID-19 assay has been cleared by the U.S. Food and Drug Administration under the Emergency Use Authorization (EUA). [facility] and [facility] are designated as high complexity laboratories by the Clinical Laboratory Improvement Amendments of 1988(CLIA) and are qualified to perform this test. Not Detected 20 THE CA 19-9 ASSAY IS PERFORM ED ON THE [employer] BY CHEMILUMINESCENCE AND SHOULD NOT BE COMPARED INTERCHANGEABLY WITH OTHER METHODS. IT SHOULD NOT BE USED ALONE A SCREENING TEST OR DIAGNOSIS FOR THE PRESENCE OR ABSENCE OF MALIGNANT DISEASE. PREDICTIONS OF DISEASE RECURRENCE SHOULD NOT BE BASED SOLELY ON VALUES OBTAINED FROM SERIAL PATIENT SERUM VALUES. 21 Units are mL/min/1.73 m2 Chronic Kidney Disease Staging per NKF: Stage I & II GFR >=60 Normal to Mildly Decreased Stage III GFR 30-59 Moderately Decreased Stage IV GFR 15-29 Severely Decreased Stage V GFR <15 Very Little GFR Left ESRD GFR <15 on PROTOTYPER 22 A Pathologist review of this differential can help in the evaluation of a differential diagnosis. Please order a Pathologist Review (PERISM) if deemed necessary. Results are subject to change if a Pathologist Review is performed. 23 THE CA 19-9 ASSAY IS PERFORM ED ON THE [employer] BY CHEMILUMINESCENCE AND SHOULD NOT BE COMPARED INTERCHANGEABLY WITH OTHER METHODS. IT SHOULD NOT BE USED ALONE A SCREENING TEST OR DIAGNOSIS FOR THE PRESENCE OR ABSENCE OF MALIGNANT DISEASE. PREDICTIONS OF DISEASE RECURRENCE SHOULD NOT BE BASED SOLELY ON VALUES OBTAINED FROM SERIAL PATIENT SERUM VALUES. 24 A Pathologist review of this differential can help in the evaluation of a differential diagnosis. Please order a Pathologist Review (PERISM) if deemed necessary. Results are subject to change if a Pathologist Review is performed. 25 Units are mL/min/1.73 m2 Chronic Kidney Disease Staging per NKF: Stage I & II GFR >=60 Normal to Mildly Decreased Stage III GFR 30-59 Moderately Decreased Stage IV GFR 15-29 Severely Decreased Stage V GFR <15 Very Little GFR Left ESRD GFR <15 on PROTOTYPER 26 CHRONIC KIDNEY DISEASE STAGI NG PER NKF: [...] ADOLESCENTS REPRESENTS INDIVIDUALA AGED 2-19 YEARS EXCLUSIVE. 27 CKD-EPI 28 CKD-EPI 29 A Pathologist review of this differential [...] Little GFR Left ESRD GFR <15 on PROTOTYPER Procedures Date Code Description Status 11/17/2020 21916 Office/Outpatient Established Mo d MDM 30-39 Min Completed 07/29/2020 96626 Office/Outpatient Established Mo d MDM 30-39 Min Completed Medical Devices Description No Information Available Encounters Type Date Location Provider Dx Diagnosis Office Visit 11/17/2020 11:15a [place] [facility] Homero Sanchez M. D. 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 D. 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 09/04/2020 R73.01 Impaired fasting glucose Homero Da Silva M.D. 09/04/2020 R73.01 Impaired fasting glucose Laborat ory [place] Schedule 09/04/2020 E78.2 Mixed hyperlipidemia John Sanchez M.D. 09/04/2020 E78.2 Mixed hyperlipidemia Laboratory [place] Schedule 07/29/2020 C25.1 Malignant neoplasm of body of pa Homero Earl M.D. Plan of Treatment No Information Available Functional Status Description No Information Available Mental Status Description No Information Available Referrals Description No Information Available
--- OUTSIDE RECORDS SUMMARY | 2021-01-23 15:29 | CCD | Continuity of Care Document ---
Author Author Trace SANCHEZ M.D. 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 Conj Ped. Vaccine 13 Valent (PCV13) For Im Use 24695 Given 07/24/2014 Zoster (Shingles) Vaccine [id number] Refused 02/22/2019 Influenza Virus Vaccine, Quadrivalent, Slit Virus, Im Use 3Y & Up 74791 Refused 02/13/2018 Influenza Virus Vaccine, Quadrivalent, Slit Virus, Im Use 3Y & Up 63555 Refused 02/03/2016 Influenza Virus Vaccine, Quadrivalent, Slit Virus, Im Use 3Y & Up Vital Signs Date Vital Result Comment 11/17/2020 11:02am BP Systolic 118 mmHg BP Diastolic 72 mmHg Body Temperature 98.1 F Heart Rate 76 /min Respiratory Rate 12 /min Height 68 inches 5'8" Weight 132.00 lb [place] Body Weight 154 lb BMI (Body Mass Index) 20.1 kg/m2 O2 % BldC Oximetry 94 % 07/29/2020 2:17pm BP Systolic 120 mmHg BP Diastolic 78 mmHg Body Temperature 97.9 F Heart Rate 50 /min Respiratory Rate 14 /min Height 68 inches 5'8" Weight 140.00 lb [place] Body Weight 154 lb BMI (Body Mass Index) 21.3 kg/m2 O2 % BldC Oximetry 95 % Results Test Acquired Date Facility Test Result H/L Range Note Comprehensive Met[facility] Pro[facility] [phone] Glucose, Fasting 129 mg/dL High 70-100 Blood [...] Ratio 1.3 Normal Laboratory test finding 12/10/2020 [facility] ([facility]) [phone] Ca19-9 Tumor Marker,Carbohydra 88328.8 U/ML High <35.0 2 Blood Culture [facility] [phone] Blood Culture No growth after <SEE NOTE> 3 Blood Culture [facility]/10[facility] [phone] Blood Culture No growth after <SEE NOTE> 4 CBC With Auto Differential OB 12/10/2020 [facility] ([facility]) [phone] White Blood Count 10.7 10 High 4.0-10.0 [...] 36.0-66.0 Lymph % 7.0 % Low 24.0-44.0 [place] % 33.2 % High 2.0-8.0 Eos % 0.8 % Normal 0.0-3.0 Baso % 0.4 % Normal 0.0-1.0 Immature Granulocyte % 4.3 % High 0-3.0 Nucleated Red Blood Cell % 0.0 % Normal 0-0 Neutrophils # 5.8 10 Normal 1.5-8.5 Lymph # 0.8 10 Low 1.5-5.0 [place] # 3.5 10 High 0.0-0.8 Eos # 0.1 10 Normal 0.0-0.5 Baso # 0.0 10 Normal 0.0-0.2 Laboratory test finding 11/10/2020 [facility] ([facility]) [phone] Cytogenetics Fish For Path So See Pathology Re < SEE NOTE> Normal 5 BCR/Abl Screen For CML Path So See Pathology Re <SEE NOTE> Normal 6 CBC With Auto Differential OB 11/06/2020 [facility] ([facility]) [phone] White Blood Count 38.5 10 Critical high [...] 36.0-66.0 Lymph % 4.1 % Low 24.0-44.0 [place] % 21.0 % High 2.0-8.0 Eos % 0.1 % Normal 0.0-3.0 Baso % 0.7 % Normal 0.0-1.0 Immature Granulocyte % 11.4 % High 0-3.0 Nucleated Red Blood Cell % 0.0 % Normal 0-0 Neutrophils # 24.2 10 High 1.5-8.5 Lymph # 1.6 10 Normal 1.5-5.0 [place] # 8.1 10 High 0.0-0.8 Eos # 0.0 10 Normal 0.0-0.5 Baso # 0.3 10 High 0.0-0.2 Comprehensive Metabolic Profil 11/06/2020 [facility] [phone] Glucose, Fasting 133 mg/dL High 70-100 Blood [...] Ratio 1.0 Normal Laboratory test finding 11/06/2020 [facility] ([facility]) [phone] Ca19-9 Tumor Marker,Carbohydra 6514.9 U/ML High <35.0 8 Laboratory test finding 10/23/2020 [facility] ([facility]) [phone] Platelet Estimate DECREASED Normal Normal Immature Platelet Fraction 7.1 % Normal 0.0-10.91 Istat Chem8+ Panel [facility] [phone] iSTAT HCT 40.0 % Normal 38.0-51.0 iSTAT Glucose 232 mg/dL High 70-105 iSTAT Sodium 136 mEq/L Normal 136-145 iSTAT Potassium 3.6 mEq/L Normal 3.5-5.1 iSTAT CA++ 4.4 mg/dL Low 4.5-5.3 iSTAT Chloride 98 mEq/L Normal 98-109 iSTAT Co2 20.0 MM/L Low 23.0-27.0 iSTAT BUN 15 mg/dL Normal 8-26 iSTAT Creatinine 0.9 mg/dL Normal 0.6-1.3 Differential 10/23/2020 [facility] [phone] Neutrophils 84 % High 28-66 Bands 6 % Normal < 11 Lymphocytes 2 % Low 16-44 Monocytes 8 % High 0-5 RBC Morphology NORMAL Normal CBC With Differential 10/23/2020 [facility] ([facility]) [phone] White Blood Count 23.5 10 High 4.0-10.0 [...] % High 0-0 Laboratory test finding 10/23/2020 [facility] ([facility]) [phone] NT-Pro BNP 2080 pg/mL High <450 Basic Metabolic Profile 10/23/2020 [facility] ([facility]) [phone] Glucose, Fasting 215 mg/dL High 70-100 Blood [...] mg/dL Low 8.8-10.2 Cardiac Marker Panel 10/23/2020 [facility] ( [facility]) [phone] CPK Creatine Phosphokinase 24 U/L Low 39-30 8 CK-MB Value Mass < 1.0 NG/ML Normal <3.6 MB/CK Relative Index 4.17 High < Or =4 11 Troponin I 0.15 NG/ML High < 0.10 12 Laboratory test finding 10/23/2020 [facility] ([facility]) [phone] Partial Thromboplastin Time 30.9 seconds Normal 25 .9-37.0 Prothrombin Time/Inr 10/23/2020 [facility] ( [facility]) [phone] Prothrombin Time 15.9 seconds High 12.7-14.5 Inr 1.23 Normal 13 Influenxa A/B RSV Covid Amp 10/23/2020 [facility] (Interface) [phone] Influenza A Amplification NEGATIVE Normal Negati ve 14 Influenza B Amplification NEGATIVE Normal Negative 15 RSV Amplification NEGATIVE Normal Negative 16 Sars Covid-19 Amplification NEGATIVE Normal Negative 17 Laboratory test finding 10/23/2020 [facility] ([facility]) [phone] Lactic Acid Sepsis Protocol 3.0 mmol/L Critical high 0 .4-2.0 18 Liver Profile 10/23/2020 [facility] ([facility] [phone] Ast/Sgot 13 U/L Normal 7-37 Alt/SGPT 17 U/L Normal 12-78 Alkaline Phosphatase 132 U/L High 45-117 Bilirubin,Total 0.9 mg/dL Normal 0.2-1.0 Bilirubin,Direct 0.4 mg/dL High 0.0-0.2 Total Protein 5.9 GM/DL Low 6.4-8.2 Albumin 3.3 GM/DL Normal 3.2-5.2 Albumin/Globulin Ratio 1.3 Normal Coronavirus 2019 Nasopharygeal 10/15/2020 [facility] ([facility]) [phone] Coronavirus 2019 Nasopharygeal ASSAY INFORMATIO <SEE N OTE> 19 CBC With Auto Differential OB 10/08/2020 [facility]) [phone] White Blood Count 9.8 10 Normal 4.0-10.0 20 Red Blood Count 4.82 10 Normal 4.30-6.10 [...] 36.0-66.0 Lymph % 8.1 % Low 24.0-44.0 [place] % 34.9 % High 2.0-8.0 Eos % 1.0 % Normal 0.0-3.0 Baso % 0.3 % Normal 0.0-1.0 Immature Granulocyte % 2.5 % Normal 0-3.0 Nucleated Red Blood Cell % 0.0 % Normal 0-0 Neutrophils # 5.2 10 Normal 1.5-8.5 Lymph # 0.8 10 Low 1.5-5.0 [place] # 3.4 10 High 0.0-0.8 Eos # 0.1 10 Normal 0.0-0.5 Baso # 0.0 10 Normal 0.0-0.2 Comprehensive Metabolic Profil 10/08/2020 [facility] ([facility]) [phone] Glucose, Fasting 131 mg/dL High 70-100 Blood [...] GM/DL Normal 3.2-5.2 Albumin/Globulin Ratio 1.8 Normal Laboratory test finding 10/08/2020 [facility] ([facility]) [phone] Ca19-9 Tumor Marker,Carbohydra 6310.2 U/ML High <35.0 22 Laboratory test finding 09/25/2020 [facility] ([facility]) [phone] Ca19-9 Tumor Marker,Carbohydra 5746.2 U/ML High <35.0 23 Comprehensive Metabolic Profil 09/18/2020 [facility]) [phone] Glucose, Fasting 120 mg/dL High 70-100 Blood Urea Nitrogen 13 mg/dL Normal 7-18 Creatinine For GFR 0.74 mg/dL Normal 0.70-1.30 Glomerular Filtration Rate > 60.0 Normal >35 2 4 Sodium Level 140 mEq/L Normal 136-145 Potassium [...] GM/DL Normal 3.2-5.2 Albumin/Globulin Ratio 1.7 Normal CBC With Auto Differential OB 09/18/2020 [facility] ([facility]) [phone] White Blood Count 8.0 10 Normal 4.0-10.0 [...] 36.0-66.0 Lymph % 10.8 % Low 24.0-44.0 [place] % 37.8 % High 2.0-8.0 Eos % 1.8 % Normal 0.0-3.0 Baso % 0.3 % Normal 0.0-1.0 Immature Granulocyte % 2.3 % Normal 0-3.0 Nucleated Red Blood Cell % 0.0 % Normal 0-0 Neutrophils # 3.8 10 Normal 1.5-8.5 Lymph # 0.9 10 Low 1.5-5.0 [place] # 3.0 10 High 0.0-0.8 Eos # 0.1 10 Normal 0.0-0.5 Baso # 0.0 10 Normal 0.0-0.2 Laboratory test finding 09/04/2020 [facility] [...] eGFR 103 # Calc 27 eGFR Non-Afr. Nepalese 89 # Calc 28 Lipid Panel 09/04/2020 [facility] Chol 171 mg/dL 0 - 200 Trig 58 mg/dL 35 - 200 HDL 53 mg/dL 35 - 55 LDL_C 106 Calc 75 - 129 Cho/HDL Ratio 3.2 CALC CBC With Auto Differential OB 08/31/2020 [facility] ([facility]) [phone] White Blood Count 9.6 10 Normal 4.0-10.0 [...] 36.0-66.0 Lymph % 6.8 % Low 24.0-44.0 [place] % 37.0 % High 2.0-8.0 Eos % 0.8 % Normal 0.0-3.0 Baso % 0.2 % Normal 0.0-1.0 Immature Granulocyte % 1.6 % Normal 0-3.0 Nucleated Red Blood Cell % 0.0 % Normal 0-0 Neutrophils # 5.2 10 Normal 1.5-8.5 Lymph # 0.7 10 Low 1.5-5.0 [place] # 3.6 10 High 0.0-0.8 Eos # 0.1 10 Normal 0.0-0.5 Baso # 0.0 10 Normal 0.0-0.2 Comprehensive Metabolic Profil 08/31/2020 [facility] ([facility]) [phone] Glucose, Fasting 136 mg/dL High 70-100 Blood [...] GM/DL Normal 3.2-5.2 Albumin/Globulin Ratio 1.8 Normal CMP 06/30/2020 [facility] Glu 147 mg/dL High 70 - 110 31 BUN 14 mg/dL 8 - 23 Creat 0.8 mg/dL 0.7 - 1.2 BUN/Creatinine Ratio 18.3 Calc Na 137 mmol/L 136 - 145 K 4.2 mmol/L 3.5 - 5.1 CL 98.2 mmol/L 98.0 - 107.0 Co2 24.1 mmol/L 22.0 - 29.0 CA 9.7 mg/dL 8.6 - 10.2 TP 6.5 g/dL Low 6.6 - 8.7 Alb 5.1 g/dL 3.5 - 5.2 A/G Ratio 3.7 Calc Globulin 1.4 Calc Alp 60.0 U/L 40 - 129 Alt (SGPT) 9 U/L 0 - 41 Ast (Sgot) 13 U/L 0 - 40 Tbili 0.49 mg/dL 0.0 - 1.2 Osmolality-Calculated 276.7 Calc Anion Gap 19 mmol/L eGFR 97 # Calc 32 eGFR Non-Afr. Nepalese 84 # Calc 33 CBC W/Automated Diff 06/30/2020 [place] [address] [phone] CBC W/Automated Diff (SEE NOTE) 34 WBC 8.5 10^3/uL 4.2 - 11.0 RBC 4.61 10^6/uL 4.50 - 6.30 Hemoglobin 15.3 g/dL 14.0 - 16.0 Hematocrit 44.2 % 41.0 - 51.0 MCV 95.9 fL High 80.0 - 94.0 MCH 33.2 pg 27.0 - 34.0 MCHC 34.6 g/dL 31.0 - 36.0 RDW 12.5 % 11.5 - 14.8 Platelets 190 10^3/uL 150 - 450 MPV 11.1 fL High 7.4 - 10.4 Neut 52.1 % 37.0 - 80.0 Lymph 9.8 % Low 25.0 - 40.0 [place] 34.8 % High 3.0 - 8.0 Eos 0.9 % 0.0 - 7.0 Baso 0.2 % 0.0 - 2.0 %Ig 2.2 % High 0.0 - 0.0 %NRBC 0.0 % 0.0 - 0.0 #Neut 4.40 10^3/uL 2.00 - 6.90 #Lymph 0.83 10^3/uL 0.60 - 3.40 #[place] 2.95 10^3/uL High 0.00 - 0.90 #Eos 0.08 10^3/uL 0.00 - 0.70 #Baso 0.02 10^3/uL 0.00 - 0.20 #Ig 0.19 10^3/uL High 0.00 - 0.10 #NRBC 0.00 10^3/uL 0.00 - 0.00 Manual Diff SEE BELOW Segs 33 % Low 37 - 80 Band 13 % High 0 - 5 %Lymph 15 % Low 25 - 40 %[place] 39 % High 3 - 8 RBC Morph MORPH IS NORMAL Carbohydrate Ag 19-9 (Serial) 06/29/2020 [facility] [place] CA 19-9 1079 U/mL High 0-35 35 PDF . Laboratory test finding 06/29/2020 [facility] [place] Amylase 22 U/L Low 31-110 Lipase 16 U/L 13-78 1 Units are mL/min/1.73 m2 Chronic Kidney Disease Staging per NKF: Stage I & II GFR >=60 Normal to Mildly Decreased Stage III GFR 30-59 Moderately Decreased Stage IV GFR 15-29 Severely Decreased Stage V GFR <15 Very Little GFR Left ESRD GFR <15 on CHIEF MEDICAL DIRECTOR 2 THE CA 19-9 ASSAY IS PERFORM ED ON THE [place] BY CHEMILUMINESCENCE AND SHOULD NOT BE COMPARED [...] for Pathology Reference Lab Testing. Refer to [facility] Pathology Report for Results:[id number] See Pathology Report Specimen Collection for Pathology Reference Lab Testing. Refer to [facility] Pathology Report for Results: [id number] Units are mL/min/1.73 m2 Chronic Kidney Disease Staging per NKF: Stage I & II GFR >=60 Normal to Mildly Decreased Stage III GFR 30-59 Moderately Decreased Stage IV GFR 15-29 Severely Decreased Stage V GFR <15 Very Little GFR Left ESRD GFR <15 on CHIEF MEDICAL DIRECTOR 8 THE CA 19-9 ASSAY IS PERFORM ED ON THE [place] BY CHEMILUMINESCENCE AND SHOULD NOT BE COMPARED [...] Little GFR Left ESRD GFR <15 on CHIEF MEDICAL DIRECTOR 11 DIAGNOSIS CRITERIA MMB ng/ml Relative Index (RI) NON-AMI < or = 5 N/A PRINCE ZONE > 5 < or = 4 AMI > 5 > 4 12 Troponin I Reference Interva l for mktg [place] LOCI: 99th Percentile= 0.00-0.045 ng/ml Risk Stratification: [...] pathogens. DISCLAIMER: Testing was performed using the [facility] SARS-CoV-2 test. This test was developed and its performance characteristics determined by [facility]. This test has not been FDA cleared [...] Administration under the Emergency Use Authorization (EUA). [facility] and [facility] are designated as high complexity laboratories by the Clinical Laboratory Improvement Amendments of 1988(CLIA) and are qualified to perform this test. Not Detected 20 A Pathologist review of this differential can help in the evaluation of a differential diagnosis. Please order a Pathologist Review (PERISM) if deemed necessary. Results are subject to change if a Pathologist Review is performed. 21 Units are mL/min/1.73 m2 Chronic Kidney Disease Staging per NKF: Stage I & II GFR >=60 Normal to Mildly Decreased Stage III GFR 30-59 Moderately Decreased Stage IV GFR 15-29 Severely Decreased Stage V GFR <15 Very Little GFR Left ESRD GFR <15 on CHIEF MEDICAL DIRECTOR 22 THE CA 19-9 ASSAY IS PERFORM ED ON THE [place] BY CHEMILUMINESCENCE AND SHOULD NOT BE COMPARED INTERCHANGEABLY WITH OTHER METHODS. IT SHOULD NOT BE USED ALONE A SCREENING TEST OR DIAGNOSIS FOR THE PRESENCE OR ABSENCE OF MALIGNANT DISEASE. PREDICTIONS OF DISEASE RECURRENCE SHOULD NOT BE BASED SOLELY ON VALUES OBTAINED FROM SERIAL PATIENT SERUM VALUES. 23 THE CA 19-9 ASSAY IS PERFORM ED ON THE [place] BY CHEMILUMINESCENCE AND SHOULD NOT BE COMPARED INTERCHANGEABLY WITH OTHER METHODS. IT SHOULD NOT BE USED ALONE A SCREENING TEST OR DIAGNOSIS FOR THE PRESENCE OR ABSENCE OF MALIGNANT DISEASE. PREDICTIONS OF DISEASE RECURRENCE SHOULD NOT BE BASED SOLELY ON VALUES OBTAINED FROM SERIAL PATIENT SERUM VALUES. 24 Units are mL/min/1.73 m2 Chronic Kidney Disease Staging per NKF: Stage I & II GFR >=60 Normal to Mildly Decreased Stage III GFR 30-59 Moderately Decreased Stage IV GFR 15-29 Severely Decreased Stage V GFR <15 Very Little GFR Left ESRD GFR <15 on CHIEF MEDICAL DIRECTOR 25 A Pathologist review of this differential can help in the evaluation of a differential diagnosis. Please order a Pathologist Review (PERISM) if deemed necessary. Results are subject to change if a Pathologist Review is performed. 26 CHRONIC KIDNEY DISEASE STAGI NG PER [...] Little GFR Left ESRD GFR <15 on CHIEF MEDICAL DIRECTOR 31 NORMAL RANGES Age WBC RBC HGB HCT MCV PLT Adult M 4.1-10.9 4.20-6.30 12.0-18.0 37.0-51.0 80-97 140-440 Adult F 4.1-10.9 4.04-5.48 12.0-18.0 37.0-51.0 80-97 140-440 0 -1 Yr 5.0-20.0 3.9-5.9 15-18 MV: 44 MV: 91 MV: 277 2-9 Yr. 6.0-17.0 3.8-5.4 11-13 MV: 37 MV: 78 MV: 300 10 Yrs. 5.0-13.0 3.8-5.4 12-15 MV: 39 MV: 80 MV: 250 NOTE: * FOR ADULT BLACK MALES AND FEMALES, NORMAL WBC IS 2.9-7.7 K/ML * FOR ADULT BLACK MALES AND FEMALES, NORMAL RBC,HGB, AND HCT IS 5% LESS SOURCE FOR DATA: GMEX 1800 OPERATION MANUAL( AUTOMATED BLOOD COUNTS AND DIFF.) APPENDIX B-3 CHRONIC KIDNEY DISEASE STAGING PER NKF: MALE GFR INTERPRETATION: 20-49 YRS: [...] mL/min Normal 80 and above >32 mL/min Normal 32 CKD-EPI 33 CKD-EPI 34 COMPLETE BLOOD COUNT 35 [employer] Electroche miluminescence Immunoassay (ECLIA) Values obtained with different assay methods or kits cannot be used interchangeably. Results cannot be interpreted as absolute evidence of the presence or absence of malignant disease. Procedures Date Code Description Status 11/17/2020 88893 Office/Outpatient Established Mo d MDM 30-39 Min Completed 07/29/2020 37990 Office/Outpatient Established Mo d MDM 30-39 Min Completed 06/29/2020 92394 Office/Outpatient Established Mo d MDM 30-39 Min Completed Medical Devices Description No Information Available Encounters Type Date Location Provider Dx Diagnosis Office Visit 11/17/2020 11:15a [place] [facility] Homero Sanchez M. D. C25.1 Malignant neoplasm of body of pancreas Z95.2 Presence of prosthetic heart valve Office Visit 07/29/2020 1:30p [place] [facility] Homero Sanchez M. D. C25.1 Malignant neoplasm of body of pancreas Office Visit 06/29/2020 3:40p [place] [facility] Homero Sanchez M. D. 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 09/04/2020 R73.01 Impaired fasting glucose Homero Da Silva M.D. 09/04/2020 R73.01 Impaired fasting glucose Laborat ory [place] Schedule 09/04/2020 E78.2 Mixed hyperlipidemia John Sanchez M.D. 09/04/2020 E78.2 Mixed hyperlipidemia Laboratory [place] Schedule 07/29/2020 C25.1 Malignant neoplasm of body of pa Homero Earl M.D. 06/29/2020 C25.1 Malignant neoplasm of body of pa Homero Earl M.D. Plan of Treatment No Information Available Functional Status Description No Information Available Mental Status Description No Information Available Referrals Refer to Reason for Referral Status Appt Date [facility] Oncology & Hematology pancreatic mass- eval and rx , MRCP and CA19-9 pending Sent 07/27/2020 [address] [place] [address]
--- OUTSIDE RECORDS SUMMARY | 2021-01-23 15:29 | CCD ---
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 confirmed 5158664003104 Problem Malignant neoplasm of pancreas, unspecified loca tion of malignancy C25.9 Active confirmed 030719035 Problem Leukocytosis, unspecified type D72.829 Active confi rmed [id number] ALLERGIES Allergen (clinical drug ingredient) Drug/Non Drug Allergy do cumented on EMR Reaction Allergy Type Onset Date Status Penicillin (For Allergies Use Only) unknown by patient Tom francisco Allergy Active ENCOUNTERS from 1940 to 2020-12-14 Encounter Location Date Provider Diagnosis [facility] [place] [address] [facility] [address] [phone] [place] [address] Nov, Moses Sena Bacteremia R78.81 ; MSSA (methicillin susceptible Staphylococcus aureus) A49.01 ; 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 ; Malignant neoplasm of pancreas, unspecified location of malignancy C25.9 and Leukocytosis, unspecified type D72.829 IMMUNIZATIONS No Information SOCIAL HISTORY Sex Assigned At : Social History Observation Description Sex Assigned At Unknown Education: Question Answer Notes Level of Education: Not Finished College Language: Question Answer Notes Languages spoken: Mohawk Jehovah'S Witness: Question Answer Notes Jehovah'S Witness 08 Gnosticist REASON FOR REFERRAL No Information VITAL SIGNS Weight 137 lbs Nov, Weight-kg 62.14 kg Nov, Height 5'9" in Nov, BMI 20.23 kg/m2 Nov, Heart Rate 68 /min Nov, Respiratory Rate 18 /min Nov, Temperature 96.9 degrees Fahrenheit Nov, Oximetry 99% Nov, Blood pressure systolic 142 mm Hg Nov, Blood pressure diastolic 78 mm Hg Nov, MEDICATIONS Medication SIG (Take, Route, Frequency, Duration) Notes Start Da te End Date Status Aspir-Low 81 MG 1 tablet Orally Once a day Active Probiotic - as directed Orally Activ e Compazine 25mg Active Zofran 4 MG 1 tablet Orally Once a day for 30 day(s) Active Multivitamin - 1 tablet Orally Once a day Active ceFAZolin Sodium 2 GM/20ML as directed Intravenous q 8 Active Vitamin D 50 MCG (1999) 1 capsule Orally Once a day Active PROCEDURES No Information RESULTS No Results REASON FOR VISIT 3 Weeks MEDICAL (GENERAL) HISTORY Type Description Date Medical History PROSTATE CANCER Medical History KIDNEY STONE Medical History Pancreatic cancer started chemotherapy o n 10/12/2020 Medical History 10/23 MSSA bacteremia status post TAVR procedure on 10/19 being treated with IV cefazolin for presumptive endocarditis until 12/06/2019, Surgical History PROSTATE SURGERY 1996 Surgical History HERNIA REPAIR 1999 Hospitalization History SURGERY RELATED Hospitalization History KIDNEY STONES Goals Section No Information Health Concerns No Information MEDICAL EQUIPMENT No Information MENTAL STATUS No Information FUNCTIONAL STATUS No Information ASSESSMENTS Encounter Date Diagnosis Assessment Notes Treatment Notes Treatm ent Clinical Notes Nov, Bacteremia (ICD-10 - R78.81) MSSA bacteremia 10/23negative 10/24/20 Nov, MSSA (methicillin susceptibl e Staphylococcus aureus) (ICD-10 - A49.01) Patient has been on IV cefazolin for the past 5 weeks he will continue for total of 6 weeks with end of therapy scheduled for 12/05/2020 following which he will have surveillance blood cultures. He had the transesophageal echocardiogram without evidence of vegetation or valvular dehiscence done by Dr. Coronado 11/26. WbC 8.3 normal and CRP=0.5 Patient will be seeing oncology on 12/10 and hopefully will be resuming chemotherapy after that. He needs surveillance blood cultures done on that date 1 peripheral and 1 from his Esryxk-g-Ryat to make sure he does not have recurrent staph aureus bacteremia Nov, S/P TAVR (transcatheter aortic valve rep lacement) (ICD-10 - Z95.2) Infusaport placed at [facility] 09/2020, ESA done 11/26/2020 showed no evidence of vegetation, TAVR with preserved function and mild perivalvular insufficiency no stenosis very calcified mitral valve, normal left ventricular ejection fraction Nov, Malignant neoplasm of pancre as, unspecified location of malignancy (ICD-10 - C25.9) Chemotherapy first treatment was on 10/12/2020 , CA 199 6515 11/06/2020, chemotherapy on hold until he finishes IV antibiotic. The patient is scheduled for CT abdomen pelvis on 12/03/2020 Nov, Leukocytosis, unspecified type (ICD-10 - D72.829 ) Reactive BM and Neulasta has resolved PLAN OF TREATMENT Medication Medication Name Sig Start Date Stop Date Probiotic - as directed Orally ceFAZolin Sodium 2 GM/20ML as directed Intravenous q 8 Treatment Notes Assessment Notes Clinical Notes Bacteremia MSSA bacteremia 10/23 negative 10/24/20 MSSA (methicillin susceptible Staphylococcus aureus) Patient has been on IV cefazolin for the past 5 weeks he will continue for total of 6 weeks with end of therapy scheduled for 12/05/2020 following which he will have surveillance blood cultures. He had the transesophageal echocardiogram without evidence of vegetation or valvular dehiscence done by Dr. Coroando 11/26.WbC 8.3 normal and CRP=0.5Patient will be seeing oncology on 12/10 and hopefully will be resuming chemotherapy after that. He needs surveillance blood cultures done on that date 1 peripheral and 1 from his Uyksho-z-Koif to make sure he does not have recurrent staph aureus bacteremia S/P TAVR (transcatheter aortic valve replacement) Infusaport placed at [facility] 09/2020, ESA done 11/26/2020 showed no evidence of vegetation, TAVR with preserved function and mild perivalvular insufficiency no stenosis very calcified mitral valve, normal left ventricular ejection fraction Malignant neoplasm of pancreas, unspecified location of maxine gnancy Chemotherapy first treatment was on 10/12/2020 , CA 199 6515 11/06/2020, chemotherapy on hold until he finishes IV antibiotic. The patient is scheduled for CT abdomen pelvis on 12/03/2020 Leukocytosis, unspecified type Reactive BM and Neulasta has resolved Treatment Notes Test Name Order Date BLOOD CULTURES 2020-12-01 Next Appt Details prn Reason: Insurance Providers Payer Name Payer Address Payer Phone Insured Name Patient Relati onship to Insured Coverage Start Date Coverage End Date MEDICARE Part A and B [address] [facility] [id number] CONSTANTIN BRIONES self [employer] [address] [address] [facility] [phone] CONSTANTIN BRIONES self
--- OUTSIDE RECORDS SUMMARY | 2021-01-23 15:29 | CCD | Continuity of Care Document ---
Author Author Trace SANCHEZ M.D. Organization Unknown Address [address] [address] Phone [phone] Care Team Providers Care Grade Setter Name Role Phone Neftali Malik Kasandra [facility] [phone] Problems Active Problems Provider Date Urolith Homero [...] CPT Code Status Date Vaccine Lot # 28636 Given 07/29/2015 Prevnar 13 Pneum o. Conj Ped. Vaccine 13 Valent (PCV13) For Im Use 16574 Given 07/24/2014 Zoster (Shingles) Vaccine 68101 Refused 02/22/2019 Influenza Virus Vaccine, Quadrivalent, Slit Virus, Im Use 3Y & Up 06505 Refused 02/13/2018 Influenza Virus Vaccine, Quadrivalent, Slit Virus, Im Use 3Y & Up 38920 Refused 02/03/2016 Influenza Virus Vaccine, Quadrivalent, Slit Virus, Im Use 3Y & Up Vital Signs Date Vital Result Comment 11/17/2020 11:02am BP Systolic 118 mmHg BP Diastolic 72 mmHg Body Temperature 98.1 F Heart Rate 76 /min Respiratory Rate 12 /min Height 68 inches 5'8" Weight 132.00 lb Alpine Body Weight 154 lb BMI (Body Mass Index) 20.1 kg/m2 O2 % BldC Oximetry 94 % 07/29/2020 2:17pm BP Systolic 120 mmHg BP Diastolic 78 mmHg Body Temperature 97.9 F Heart Rate 50 /min Respiratory Rate 14 /min Height 68 inches 5'8" Weight 140.00 lb Alpine Body Weight 154 lb BMI (Body Mass Index) 21.3 kg/m2 O2 % BldC Oximetry 95 % Results Test Acquired Date Facility Test Result H/L Range Note Comprehensive Metabolic Profil 12/10/2020 [facility] (Interface) [phone] Glucose, Fasting 129 mg/dL High 70-100 Blood [...] Ratio 1.3 Normal Laboratory test finding 12/10/2020 [facility] (Interface) [phone] Ca19-9 Tumor Marker,Carbohydra 37694.8 U/ML High <35.0 2 Blood Culture 12/10/2020 [facility] [phone] Blood Culture No growth after <SEE NOTE> 3 Blood Culture 12/10/2020 [facility] [phone] Blood Culture No growth after <SEE NOTE> 4 CBC With Auto Differential OB 12/10/2020 [facility] (Interface) [phone] White Blood Count 10.7 10 High 4.0-10.0 [...] 36.0-66.0 Lymph % 7.0 % Low 24.0-44.0 [place] % 33.2 % High 2.0-8.0 Eos % 0.8 % Normal 0.0-3.0 Baso % 0.4 % Normal 0.0-1.0 Immature Granulocyte % 4.3 % High 0-3.0 Nucleated Red Blood Cell % 0.0 % Normal 0-0 Neutrophils # 5.8 10 Normal 1.5-8.5 Lymph # 0.8 10 Low 1.5-5.0 [place] # 3.5 10 High 0.0-0.8 Eos # 0.1 10 Normal 0.0-0.5 Baso # 0.0 10 Normal 0.0-0.2 Laboratory test finding 11/10/2020 [facility] (Interface) [phone] Cytogenetics Fish For Path So See Pathology Re < SEE NOTE> Normal 5 BCR/Abl Screen For CML Path So See Pathology Re <SEE NOTE> Normal 6 CBC With Auto Differential OB 11/06/2020 [facility] (Interface) [phone] White Blood Count 38.5 10 Critical high [...] 36.0-66.0 Lymph % 4.1 % Low 24.0-44.0 [place] % 21.0 % High 2.0-8.0 Eos % 0.1 % Normal 0.0-3.0 Baso % 0.7 % Normal 0.0-1.0 Immature Granulocyte % 11.4 % High 0-3.0 Nucleated Red Blood Cell % 0.0 % Normal 0-0 Neutrophils # 24.2 10 High 1.5-8.5 Lymph # 1.6 10 Normal 1.5-5.0 [place] # 8.1 10 High 0.0-0.8 Eos # 0.0 10 Normal 0.0-0.5 Baso # 0.3 10 High 0.0-0.2 Comprehensive Metabolic Profil 11/06/2020 [facility] (Interface) [phone] Glucose, Fasting 133 mg/dL High 70-100 Blood [...] Ratio 1.0 Normal Laboratory test finding 11/06/2020 [facility] (Interface) [phone] Ca19-9 Tumor Marker,Carbohydra 6514.9 U/ML High <35.0 8 Laboratory test finding 10/23/2020 [facility] (Interface) [phone] Platelet Estimate DECREASED Normal Normal Immature Platelet Fraction 7.1 % Normal 0.0-10.91 Istat Chem8+ Panel 10/23/2020 [facility] [phone] iSTAT HCT 40.0 % Normal 38.0-51.0 iSTAT Glucose 232 mg/dL High 70-105 iSTAT Sodium 136 mEq/L Normal 136-145 iSTAT Potassium 3.6 mEq/L Normal 3.5-5.1 iSTAT CA++ 4.4 mg/dL Low 4.5-5.3 iSTAT Chloride 98 mEq/L Normal 98-109 iSTAT Co2 20.0 MM/L Low 23.0-27.0 iSTAT BUN 15 mg/dL Normal 8-26 iSTAT Creatinine 0.9 mg/dL Normal 0.6-1.3 Differential 10/23/2020 [facility] [phone] Neutrophils 84 % High 28-66 Bands 6 % Normal < 11 Lymphocytes 2 % Low 16-44 Monocytes 8 % High 0-5 RBC Morphology NORMAL Normal CBC With Differential 10/23/2020 [facility] (Interface) [phone] White Blood Count 23.5 10 High 4.0-10.0 [...] % High 0-0 Laboratory test finding 10/23/2020 [facility] (Interface) [phone] NT-Pro BNP 2080 pg/mL High <450 Basic Metabolic Profile 10/23/2020 [facility] (Interface) [phone] Glucose, Fasting 215 mg/dL High 70-100 Blood [...] mg/dL Low 8.8-10.2 Cardiac Marker Panel 10/23/2020 [facility] ( Interface) [phone] CPK Creatine Phosphokinase 24 U/L Low 39-30 8 CK-MB Value Mass < 1.0 NG/ML Normal <3.6 MB/CK Relative Index 4.17 High < Or =4 11 Troponin I 0.15 NG/ML High < 0.10 12 Laboratory test finding 10/23/2020 [facility] (Interface) [phone] Partial Thromboplastin Time 30.9 seconds Normal 25 .9-37.0 Prothrombin Time/Inr 10/23/2020 [facility] ( Interface) [phone] Prothrombin Time 15.9 seconds High 12.7-14.5 Inr 1.23 Normal 13 Influenxa A/B RSV Covid Amp 10/23/2020 [facility] (Interface) [phone] Influenza A Amplification NEGATIVE Normal Negati ve 14 Influenza B Amplification NEGATIVE Normal Negative 15 RSV Amplification NEGATIVE Normal Negative 16 Sars Covid-19 Amplification NEGATIVE Normal Negative 17 Laboratory test finding 10/23/2020 [facility] (Interface) [phone] Lactic Acid Sepsis Protocol 3.0 mmol/L Critical high 0 .4-2.0 18 Liver Profile 10/23/2020 [facility] ([facility]) [phone] Ast/Sgot 13 U/L Normal 7-37 Alt/SGPT 17 U/L Normal 12-78 Alkaline Phosphatase 132 U/L High 45-117 Bilirubin,Total 0.9 mg/dL Normal 0.2-1.0 Bilirubin,Direct 0.4 mg/dL High 0.0-0.2 Total Protein 5.9 GM/DL Low 6.4-8.2 Albumin 3.3 GM/DL Normal 3.2-5.2 Albumin/Globulin Ratio 1.3 Normal Coronavirus 2019 Nasopharygeal 10/15/2020 [facility] (Interface) [phone] Coronavirus 2019 Nasopharygeal ASSAY INFORMATIO <SEE N OTE> 19 CBC With Auto Differential OB 10/08/2020 [facility]) [phone] White Blood Count 9.8 10 Normal 4.0-10.0 [...] 36.0-66.0 Lymph % 8.1 % Low 24.0-44.0 [place] % 34.9 % High 2.0-8.0 Eos % 1.0 % Normal 0.0-3.0 Baso % 0.3 % Normal 0.0-1.0 Immature Granulocyte % 2.5 % Normal 0-3.0 Nucleated Red Blood Cell % 0.0 % Normal 0-0 Neutrophils # 5.2 10 Normal 1.5-8.5 Lymph # 0.8 10 Low 1.5-5.0 [place] # 3.4 10 High 0.0-0.8 Eos # 0.1 10 Normal 0.0-0.5 Baso # 0.0 10 Normal 0.0-0.2 Comprehensive Metabolic Profil 10/08/2020 [facility] ([facility]) [phone] Glucose, Fasting 131 mg/dL High 70-100 Blood [...] Ratio 1.8 Normal Laboratory test finding 10/08/2020 [facility] ([facility]) [phone] Ca19-9 Tumor Marker,Carbohydra 6310.2 U/ML High <35.0 22 Laboratory test finding 09/25/2020 [facility] ([facility]) [phone] Ca19-9 Tumor Marker,Carbohydra 5746.2 U/ML High <35.0 23 Comprehensive Metabolic Profil 09/18/2020 [facility]) [phone] Glucose, Fasting 120 mg/dL High 70-100 Blood [...] Normal CBC With Auto Differential OB 09/18/2020 [facility] (Interface) [phone] White Blood Count 8.0 10 Normal 4.0-10.0 [...] 36.0-66.0 Lymph % 10.8 % Low 24.0-44.0 [place] % 37.8 % High 2.0-8.0 Eos % 1.8 % Normal 0.0-3.0 Baso % 0.3 % Normal 0.0-1.0 Immature Granulocyte % 2.3 % Normal 0-3.0 Nucleated Red Blood Cell % 0.0 % Normal 0-0 Neutrophils # 3.8 10 Normal 1.5-8.5 Lymph # 0.9 10 Low 1.5-5.0 [place] # 3.0 10 High 0.0-0.8 Eos # [...] eGFR 103 # Calc 27 eGFR Non-Afr. Northern Irish 89 # Calc 28 Lipid Panel 09/04/2020 [facility] Chol 171 mg/dL 0 - 200 Trig 58 mg/dL 35 - 200 HDL 53 mg/dL 35 - 55 LDL_C 106 Calc 75 - 129 Cho/HDL Ratio 3.2 CALC CBC With Auto Differential OB 08/31/2020 [facility] (Interface) [phone] White Blood Count 9.6 10 Normal 4.0-10.0 [...] 36.0-66.0 Lymph % 6.8 % Low 24.0-44.0 [place] % 37.0 % High 2.0-8.0 Eos % 0.8 % Normal 0.0-3.0 Baso % 0.2 % Normal 0.0-1.0 Immature Granulocyte % 1.6 % Normal 0-3.0 Nucleated Red Blood Cell % 0.0 % Normal 0-0 Neutrophils # 5.2 10 Normal 1.5-8.5 Lymph # 0.7 10 Low 1.5-5.0 [place] # 3.6 10 High 0.0-0.8 Eos # 0.1 10 Normal 0.0-0.5 Baso # 0.0 10 Normal 0.0-0.2 Comprehensive Metabolic Profil 08/31/2020 [facility] (Interface) [phone] Glucose, Fasting 136 mg/dL High 70-100 Blood [...] eGFR 97 # Calc 32 eGFR Non-Afr. Northern Irish 84 # Calc 33 CBC W/Automated Diff 06/30/2020 [place] [address] [phone] CBC W/Automated Diff (SEE NOTE) 34 WBC [...] Lymph 9.8 % Low 25.0 - 40.0 [place] 34.8 % High 3.0 - 8.0 Eos 0.9 % 0.0 - 7.0 Baso 0.2 % 0.0 - 2.0 %Ig 2.2 % High 0.0 - 0.0 %NRBC 0.0 % 0.0 - 0.0 #Neut 4.40 10^3/uL 2.00 - 6.90 #Lymph 0.83 10^3/uL 0.60 - 3.40 #C[place]bra 2.95 10^3/uL High 0.00 - 0.90 #Eos 0.08 10^3/uL 0.00 - 0.70 #Baso 0.02 10^3/uL 0.00 - 0.20 #Ig 0.19 10^3/uL High 0.00 - 0.10 #NRBC 0.00 10^3/uL 0.00 - 0.00 Manual Diff SEE BELOW Segs 33 % Low 37 - 80 Band 13 % High 0 - 5 %Lymph 15 % Low 25 - 40 %[place] 39 % High 3 - 8 RBC [...] Little GFR Left ESRD GFR <15 on HOSPITAL MANAGER 2 THE CA 19-9 ASSAY IS PERFORM ED ON THE [facility] BY CHEMILUMINESCENCE AND SHOULD NOT BE COMPARED [...] for Pathology Reference Lab Testing. Refer to [facility] Pathology Report for Results:[id number] See Pathology Report Specimen Collection for Pathology Reference Lab Testing. Refer to [facility] Pathology Report for Results: [id number] Units are mL/min/1.73 m2 Chronic Kidney Disease Staging per NKF: Stage I & II GFR >=60 Normal to Mildly Decreased Stage III GFR 30-59 Moderately Decreased Stage IV GFR 15-29 Severely Decreased Stage V GFR <15 Very Little GFR Left ESRD GFR <15 on HOSPITAL MANAGER 8 THE CA 19-9 ASSAY IS PERFORM ED ON THE [facility] BY CHEMILUMINESCENCE AND SHOULD NOT BE COMPARED [...] Little GFR Left ESRD GFR <15 on HOSPITAL MANAGER 11 DIAGNOSIS CRITERIA MMB ng/ml Relative Index (RI) NON-AMI < or = 5 N/A PRINCE ZONE > 5 < or = 4 AMI > 5 > 4 12 Troponin I Reference Interva l for [place] LOCI: 99th Percentile= 0.00-0.045 ng/ml Risk Stratification: [...] pathogens. DISCLAIMER: Testing was performed using the [employer] SARS-CoV-2 test. This test was developed and its performance characteristics determined by [employer] [facility]. This test has not been FDA cleared [...] Administration under the Emergency Use Authorization (EUA). [facility] [employer] are designated as high complexity laboratories by [...] Little GFR Left ESRD GFR <15 on HOSPITAL MANAGER 22 THE CA 19-9 ASSAY IS PERFORM ED ON THE [facility] BY CHEMILUMINESCENCE AND SHOULD NOT BE COMPARED INTERCHANGEABLY WITH OTHER METHODS. IT SHOULD NOT BE USED ALONE A SCREENING TEST OR DIAGNOSIS FOR THE PRESENCE OR ABSENCE OF MALIGNANT DISEASE. PREDICTIONS OF DISEASE RECURRENCE SHOULD NOT BE BASED SOLELY ON VALUES OBTAINED FROM SERIAL PATIENT SERUM VALUES. 23 THE CA 19-9 ASSAY IS PERFORM ED ON THE [facility] BY CHEMILUMINESCENCE AND SHOULD NOT BE COMPARED [...] Little GFR Left ESRD GFR <15 on HOSPITAL MANAGER 25 A Pathologist review of this differential [...] Little GFR Left ESRD GFR <15 on HOSPITAL MANAGER 31 NORMAL RANGES Age WBC RBC HGB [...] HCT IS 5% LESS SOURCE FOR DATA: [employer] 1800 OPERATION MANUAL( AUTOMATED BLOOD COUNTS AND [...] disease. Procedures Date Code Description Status 11/17/2020 77344 Office/Outpatient Established Mo d MDM 30-39 Min Completed 07/29/2020 80488 Office/Outpatient Established Mo d MDM 30-39 Min Completed 06/29/2020 46911 Office/Outpatient Established Mo d MDM 30-39 Min Completed Medical Devices Description No Information Available Encounters Type Date Location Provider Dx Diagnosis Office Visit 11/17/2020 11:15a [facility] Homero Sanchez M. D. 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 D. C25.1 Malignant neoplasm of body of pancreas Office Visit 06/29/2020 3:40p [facility] Homero Sanchez M. D. 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 09/04/2020 R73.01 Impaired fasting glucose Homero Da Silva M.D. 09/04/2020 R73.01 Impaired fasting glucose Laborat ory [place] Schedule 09/04/2020 E78.2 Mixed hyperlipidemia John Sanchez M.D. 09/04/2020 E78.2 Mixed hyperlipidemia Laboratory [place] Schedule 07/29/2020 C25.1 Malignant neoplasm of body of pa Homero Earl M.D. 06/29/2020 C25.1 Malignant neoplasm of body of pa Homero Earl M.D. Plan of Treatment No Information Available Functional Status Description No Information Available Mental Status Description No Information Available Referrals Refer to Reason for Referral Status Appt Date [facility] Oncology & Hematology pancreatic mass- eval and rx , MRCP and CA19-9 pending Sent 07/27/2020 [address] [place] [address]
--- OUTSIDE RECORDS SUMMARY | 2021-01-23 15:29 | CCD | Continuity of Care Document ---
Author Author Trace SANCHEZ M.D. Organization Unknown Address [address] [address] Phone [phone] Care Team Providers Care Community Recreation Programmer Name Role Phone Neftali Malik Kasandra [facility] [phone] Problems Active Problems Provider Date Urolith Homero [...] CPT Code Status Date Vaccine Lot # [id number] Given 07/29/2015 Prevnar 13 Pneum o. Conj Ped. Vaccine 13 Valent (PCV13) For Im Use 70429 Given 07/24/2014 Zoster (Shingles) Vaccine 85246 Refused 02/22/2019 Influenza Virus Vaccine, Quadrivalent, Slit Virus, Im Use 3Y & Up 68510 Refused 02/13/2018 Influenza Virus Vaccine, Quadrivalent, Slit Virus, Im Use 3Y & Up 36700 Refused 02/03/2016 Influenza Virus Vaccine, Quadrivalent, Slit Virus, Im Use 3Y & Up Vital Signs Date Vital Result Comment 11/17/2020 11:02am BP Systolic 118 mmHg BP Diastolic 72 mmHg Body Temperature 98.1 F Heart Rate 76 /min Respiratory Rate 12 /min Height 68 inches 5'8" Weight 132.00 lb Hiko Body Weight 154 lb BMI (Body Mass Index) 20.1 kg/m2 O2 % BldC Oximetry 94 % 07/29/2020 2:17pm BP Systolic 120 mmHg BP Diastolic 78 mmHg Body Temperature 97.9 F Heart Rate 50 /min Respiratory Rate 14 /min Height 68 inches 5'8" Weight 140.00 lb Hiko Body Weight 154 lb BMI (Body Mass Index) 21.3 kg/m2 O2 % BldC Oximetry 95 % Results Test Acquired Date Facility Test Result H/L Range Note Comprehensive Metabolic Profil 01/05/2021 [facility] (Interface) [phone] Glucose, Fasting 158 mg/dL High 70-100 Blood [...] Normal CBC With Auto Differential OB 01/05/2021 [facility] (Interface) [phone] White Blood Count 7.2 10 Normal 4.0-10.0 [...] 36.0-66.0 Lymph % 9.5 % Low 24.0-44.0 [place] % 31.6 % High 2.0-8.0 Eos % 1.1 % Normal 0.0-3.0 Baso % 0.1 % Normal 0.0-1.0 Immature Granulocyte % 1.9 % Normal 0-3.0 Nucleated Red Blood Cell % 0.0 % Normal 0-0 Neutrophils # 4.0 10 Normal 1.5-8.5 Lymph # 0.7 10 Low 1.5-5.0 [place] # 2.3 10 High 0.0-0.8 Eos # 0.1 10 Normal 0.0-0.5 Baso # 0.0 10 Normal 0.0-0.2 Laboratory test finding 01/05/2021 [facility] (Interface) [phone] Ca19-9 Tumor Marker,Carbohydra 61036.3 U/ML High <35.0 2 CBC With Auto Differential OB 12/10/2020 [facility] (Interface) [phone] White Blood Count 10.7 10 High 4.0-10.0 [...] 36.0-66.0 Lymph % 7.0 % Low 24.0-44.0 [place] % 33.2 % High 2.0-8.0 Eos % 0.8 % Normal 0.0-3.0 Baso % 0.4 % Normal 0.0-1.0 Immature Granulocyte % 4.3 % High 0-3.0 Nucleated Red Blood Cell % 0.0 % Normal 0-0 Neutrophils # 5.8 10 Normal 1.5-8.5 Lymph # 0.8 10 Low 1.5-5.0 [place] # 3.5 10 High 0.0-0.8 Eos # 0.1 10 Normal 0.0-0.5 Baso # 0.0 10 Normal 0.0-0.2 Comprehensive Metabolic Profil 12/10/2020 [facility] (Interface) [phone] Glucose, Fasting 129 mg/dL High 70-100 Blood Urea Nitrogen 14 mg/dL Normal 7-18 Creatinine For GFR 0.79 mg/dL Normal 0.70-1.30 Glomerular Filtration Rate > 60.0 Normal >35 3 Sodium Level 135 mEq/L Low 136-145 Potassium [...] Ratio 1.3 Normal Laboratory test finding 12/10/2020 [facility] (Interface) [phone] Ca19-9 Tumor Marker,Carbohydra 99097.8 U/ML High <35.0 4 Blood Culture 12/10/2020 [facility] (I nterface) [phone] Blood Culture No growth after <SEE NOTE> 5 Blood Culture 12/10/2020 [facility] ([facility]) [phone] Blood Culture No growth after <SEE NOTE> 6 Laboratory test finding 11/10/2020 [facility] (Interface) [phone] Cytogenetics Fish For Path So See Pathology Re < SEE NOTE> Normal 7 BCR/Abl Screen For CML Path So See Pathology Re <SEE NOTE> Normal 8 CBC With Auto Differential OB 11/06/2020 [facility] (Interface) [phone] White Blood Count 38.5 10 Critical high [...] 36.0-66.0 Lymph % 4.1 % Low 24.0-44.0 [place] % 21.0 % High 2.0-8.0 Eos % 0.1 % Normal 0.0-3.0 Baso % 0.7 % Normal 0.0-1.0 Immature Granulocyte % 11.4 % High 0-3.0 Nucleated Red Blood Cell % 0.0 % Normal 0-0 Neutrophils # 24.2 10 High 1.5-8.5 Lymph # 1.6 10 Normal 1.5-5.0 [place] # 8.1 10 High 0.0-0.8 Eos # 0.0 10 Normal 0.0-0.5 Baso # 0.3 10 High 0.0-0.2 Comprehensive Metabolic Profil 11/06/2020 [facility] (Interface) [phone] Glucose, Fasting 133 mg/dL High 70-100 Blood [...] Ratio 1.0 Normal Laboratory test finding 11/06/2020 [facility] [phone] Ca19-9 Tumor Marker,Carbohydra 6514.9 U/ML High <35.0 10 Istat Chem8+ Panel 10/23/2020 [facility] [phone] iSTAT HCT 40.0 % Normal 38.0-51.0 iSTAT Glucose 232 mg/dL High 70-105 iSTAT Sodium 136 mEq/L Normal 136-145 iSTAT Potassium 3.6 mEq/L Normal 3.5-5.1 iSTAT CA++ 4.4 mg/dL Low 4.5-5.3 iSTAT Chloride 98 mEq/L Normal 98-109 iSTAT Co2 20.0 MM/L Low 23.0-27.0 iSTAT BUN 15 mg/dL Normal 8-26 iSTAT Creatinine 0.9 mg/dL Normal 0.6-1.3 Laboratory test finding 10/23/2020 [facility] ([facility]) [phone] Platelet Estimate DECREASED Normal Normal Immature Platelet Fraction 7.1 % Normal 0.0-10.91 Differential 10/23/2020 [facility] ([facility]) [phone] Neutrophils 84 % High 28-66 Bands 6 % Normal < 11 Lymphocytes 2 % Low 16-44 Monocytes 8 % High 0-5 RBC Morphology NORMAL Normal CBC With Differential 10/23/2020 [facility] [phone] White Blood Count 23.5 10 High 4.0-10.0 11 Red Blood Count 4.14 10 Low 4.30-6.10 [...] % High 0-0 Laboratory test finding 10/23/2020 [facility] [phone] NT-Pro BNP 2080 pg/mL High <450 Basic Metabolic Profile 10/23/2020 [facility]) [phone] Glucose, Fasting 215 mg/dL High 70-100 Blood Urea Nitrogen 15 mg/dL Normal 7-18 Creatinine For GFR 1.13 mg/dL Normal 0.70-1.30 Glomerular Filtration Rate > 60.0 Normal >35 1 2 Sodium Level 137 mEq/L Normal 136-145 Potassium Serum 3.6 mEq/L Normal 3.5-5.1 Chloride Level 102 mEq/L Normal 98-107 Carbon Dioxide Level 24 mEq/L Normal 21-32 Anion Gap 11 mEq/L Normal 8-16 Calcium Level 8.7 mg/dL Low 8.8-10.2 Cardiac Marker Panel 10/23/2020 [facility]) [phone] CPK Creatine Phosphokinase 24 U/L Low 39-30 8 CK-MB Value Mass < 1.0 NG/ML Normal <3.6 MB/CK Relative Index 4.17 High < Or =4 13 Troponin I 0.15 NG/ML High < 0.10 14 Laboratory test finding 10/23/2020 [facility] [phone] Partial Thromboplastin Time 30.9 seconds Normal 25 .9-37.0 Prothrombin Time/Inr 10/23/2020 [facility] ( Interface) [phone] Prothrombin Time 15.9 seconds High 12.7-14.5 Inr 1.23 Normal 15 Influenxa A/B RSV Covid Amp 10/23/2020 [facility] (Interface) [phone] Influenza A Amplification NEGATIVE Normal Negati ve 16 Influenza B Amplification NEGATIVE Normal Negative 17 RSV Amplification NEGATIVE Normal Negative 18 Sars Covid-19 Amplification NEGATIVE Normal Negative 19 Laboratory test finding 10/23/2020 [facility] (Interface) [phone] Lactic Acid Sepsis Protocol 3.0 mmol/L Critical high 0 .4-2.0 20 Liver Profile 10/23/2020 [facility] (I [facility]terface) [phone] Ast/Sgot 13 U/L Normal 7-37 Alt/SGPT 17 U/L Normal 12-78 Alkaline Phosphatase 132 U/L High 45-117 Bilirubin,Total 0.9 mg/dL Normal 0.2-1.0 Bilirubin,Direct 0.4 mg/dL High 0.0-0.2 Total Protein 5.9 GM/DL Low 6.4-8.2 Albumin 3.3 GM/DL Normal 3.2-5.2 Albumin/Globulin Ratio 1.3 Normal Coronavirus 2019 Nasopharygeal 10/15/2020 [facility] (Interface) [phone] Coronavirus 2019 Nasopharygeal ASSAY INFORMATIO <SEE N OTE> 21 Laboratory test finding 10/08/2020 [facility] (Interface) [phone] Ca19-9 Tumor Marker,Carbohydra 6310.2 U/ML High <35.0 22 Comprehensive Metabolic Profil 10/08/2020 [facility] (Interface) [phone] Glucose, Fasting 131 mg/dL High 70-100 Blood Urea Nitrogen 15 mg/dL Normal 7-18 Creatinine For GFR 0.73 mg/dL Normal 0.70-1.30 Glomerular Filtration Rate > 60.0 Normal >35 2 3 Sodium Level 139 mEq/L Normal 136-145 Potassium [...] Normal CBC With Auto Differential OB 10/08/2020 [facility] (Interface) [phone] White Blood Count 9.8 10 Normal 4.0-10.0 24 Red Blood Count 4.82 10 Normal 4.30-6.10 [...] 36.0-66.0 Lymph % 8.1 % Low 24.0-44.0 [place] % 34.9 % High 2.0-8.0 Eos % 1.0 % Normal 0.0-3.0 Baso % 0.3 % Normal 0.0-1.0 Immature Granulocyte % 2.5 % Normal 0-3.0 Nucleated Red Blood Cell % 0.0 % Normal 0-0 Neutrophils # 5.2 10 Normal 1.5-8.5 Lymph # 0.8 10 Low 1.5-5.0 [place] # 3.4 10 High 0.0-0.8 Eos # 0.1 10 Normal 0.0-0.5 Baso # 0.0 10 Normal 0.0-0.2 Laboratory test finding 09/25/2020 [facility] (Interface) [phone] Ca19-9 Tumor Marker,Carbohydra 5746.2 U/ML High <35.0 25 CBC With Auto Differential OB 09/18/2020 [facility] (Interface) [phone] White Blood Count 8.0 10 Normal 4.0-10.0 26 Red Blood Count 4.52 10 Normal 4.30-6.10 [...] 36.0-66.0 Lymph % 10.8 % Low 24.0-44.0 [place] % 37.8 % High 2.0-8.0 Eos % 1.8 % Normal 0.0-3.0 Baso % 0.3 % Normal 0.0-1.0 Immature Granulocyte % 2.3 % Normal 0-3.0 Nucleated Red Blood Cell % 0.0 % Normal 0-0 Neutrophils # 3.8 10 Normal 1.5-8.5 Lymph # 0.9 10 Low 1.5-5.0 [place] # 3.0 10 High 0.0-0.8 Eos # 0.1 10 Normal 0.0-0.5 Baso # 0.0 10 Normal 0.0-0.2 Comprehensive Metabolic Profil 09/18/2020 [facility] (Interface) [phone] Glucose, Fasting 120 mg/dL High 70-100 Blood Urea Nitrogen 13 mg/dL Normal 7-18 Creatinine For GFR 0.74 mg/dL Normal 0.70-1.30 Glomerular Filtration Rate > 60.0 Normal >35 2 7 Sodium Level 140 mEq/L Normal 136-145 Potassium [...] Ratio 1.7 Normal Laboratory test finding 09/04/2020 [facility] Hemoglobin A1c 6.1 % 4.50-6.20 CMP 09/04/2020 [facility] Glu 128 mg/dL High 70 - 110 28 BUN 16 mg/dL 8 - 23 Creat [...] Gap 16 mmol/L eGFR 103 # Calc 29 eGFR Non-Afr. Congolese 89 # Calc 30 Lipid Panel 09/04/2020 [facility] Chol 171 mg/dL 0 - 200 Trig 58 mg/dL 35 - 200 HDL 53 mg/dL 35 - 55 LDL_C 106 Calc 75 - 129 Cho/HDL Ratio 3.2 CALC CBC With Auto Differential OB 08/31/2020 [facility] (Interface) [phone] White Blood Count 9.6 10 Normal 4.0-10.0 31 Red Blood Count 4.52 10 Normal 4.30-6.10 [...] 36.0-66.0 Lymph % 6.8 % Low 24.0-44.0 [place] % 37.0 % High 2.0-8.0 Eos % 0.8 % Normal 0.0-3.0 Baso % 0.2 % Normal 0.0-1.0 Immature Granulocyte % 1.6 % Normal 0-3.0 Nucleated Red Blood Cell % 0.0 % Normal 0-0 Neutrophils # 5.2 10 Normal 1.5-8.5 Lymph # 0.7 10 Low 1.5-5.0 [place] # 3.6 10 High 0.0-0.8 Eos # 0.1 10 Normal 0.0-0.5 Baso # 0.0 10 Normal 0.0-0.2 Comprehensive Metabolic Profil 08/31/2020 [facility] ([facility]) [phone] Glucose, Fasting 136 mg/dL High 70-100 Blood Urea Nitrogen 18 mg/dL Normal 7-18 Creatinine For GFR 0.86 mg/dL Normal 0.70-1.30 Glomerular Filtration Rate > 60.0 Normal >35 3 2 Sodium Level 139 mEq/L Normal 136-145 [...] Little GFR Left ESRD GFR <15 on ORNITHOLOGY TEACHER 2 THE CA 19-9 ASSAY IS PERFORM ED ON THE Harir[place]UR BY CHEMILUMINESCENCE AND SHOULD NOT BE COMPARED [...] Little GFR Left ESRD GFR <15 on ORNITHOLOGY TEACHER 4 THE CA 19-9 ASSAY IS PERFORM ED ON THE [place] BY CHEMILUMINESCENCE AND SHOULD NOT BE COMPARED [...] time. NO GROWTH AFTER 5 DAYS 7 See Pathology Report Specimen Collection for Pathology Reference Lab Testing. Refer to [facility] Pathology Report for Results:[id number] See Pathology Report Specimen Collection for Pathology Reference Lab Testing. Refer to [facility] Pathology Report for Results: [id number] Units are mL/min/1.73 m2 Chronic Kidney Disease Staging per NKF: Stage I & II GFR >=60 Normal to Mildly Decreased Stage III GFR 30-59 Moderately Decreased Stage IV GFR 15-29 Severely Decreased Stage V GFR <15 Very Little GFR Left ESRD GFR <15 on ORNITHOLOGY TEACHER 10 THE CA 19-9 ASSAY IS PERFORM ED ON THE [place] BY CHEMILUMINESCENCE AND SHOULD NOT BE COMPARED INTERCHANGEABLY WITH OTHER METHODS. IT SHOULD NOT BE USED ALONE A SCREENING TEST OR DIAGNOSIS FOR THE PRESENCE OR ABSENCE OF MALIGNANT DISEASE. PREDICTIONS OF DISEASE RECURRENCE SHOULD NOT BE BASED SOLELY ON VALUES OBTAINED FROM SERIAL PATIENT SERUM VALUES. 11 A Pathologist review of this differential can help in the evaluation of a differential diagnosis. Please order a Pathologist Review (PERI) if deemed necessary. Results are subject to change if a Pathologist Review is performed. 12 Units are mL/min/1.73 m2 Chronic Kidney Disease Staging per NKF: Stage I & II GFR >=60 Normal to Mildly Decreased Stage III GFR 30-59 Moderately Decreased Stage IV GFR 15-29 Severely Decreased Stage V GFR <15 Very Little GFR Left ESRD GFR <15 on ORNITHOLOGY TEACHER 13 DIAGNOSIS CRITERIA MMB ng/ml Relative Index (RI) NON-AMI < or = 5 N/A PRINCE ZONE > 5 < or = 4 AMI > 5 > 4 14 Troponin I Reference Interva l for Siemens Rising LOCI: 99th Percentile= 0.00-0.045 ng/ml Risk Stratification: <= 0.10 ng/ml Decreased Risk for Adverse Clinical Events. 0.10-1.50 ng/ml Increased Risk for Adv erse Clinical Events. Evaluation of additional criterion and/or repeat testing in 2-6 hours is suggested to rule out myocardial damage. >= 1.50 ng/ml Indicative of Myocardial Injury. 15 THERAPUTIC HUMAN INR VALUES INDICATIONS NORMAL RANGES PROPHYLAXIS/TREATMENT OF: VENOUS THROMBOSIS 2.0-3.0 PULMONARY EMBOLISM 2.0-3.0 PREVENTION OF SYSTEMIC EMBOLISM FROM: TISSUE HEART VALVES 2.0-3.0 ACUTE MYOCARDIAL INFARCTION 2.0-3.0 VALVULAR HEART DISEASE 2.0-3.0 ATRIAL FIBRILLATION 2.0-3.0 MECHANICAL VALVES(HIGH RISK) 2.5-3.5 RECURRENT MYOCARDIAL INFARCTION 2.5-3.5 16 Negative results do not prec lude [...] treatment or other patient management decisions. 19 A false negative result may occur if [...] pathogens. DISCLAIMER: Testing was performed using the [facility] SARS-CoV-2 test. This test was developed and its performance characteristics determined by [facility]. This test has not been FDA cleared [...] the authorization is terminated or revoked sooner. 20 Y/N query for Sepsis Lactate Rule: Y 21 ASSAY INFORMATION: Real Time RT-PCR NOTE: The COVID-19 assay has been cleared by the U.S. Food and Drug Administration under the Emergency Use Authorization (EUA). [facility] and [employer] [facility] are designated as high complexity laboratories by the Clinical Laboratory Improvement Amendments of 1988(CLIA) and are qualified to perform this test. Not Detected 22 THE CA 19-9 ASSAY IS PERFORM ED ON THE Har[place] BY CHEMILUMINESCENCE AND SHOULD NOT BE COMPARED INTERCHANGEABLY WITH OTHER METHODS. IT SHOULD NOT BE USED ALONE A SCREENING TEST OR DIAGNOSIS FOR THE PRESENCE OR ABSENCE OF MALIGNANT DISEASE. PREDICTIONS OF DISEASE RECURRENCE SHOULD NOT BE BASED SOLELY ON VALUES OBTAINED FROM SERIAL PATIENT SERUM VALUES. 23 Units are mL/min/1.73 m2 Chronic Kidney Disease Staging per NKF: Stage I & II GFR >=60 Normal to Mildly Decreased Stage III GFR 30-59 Moderately Decreased Stage IV GFR 15-29 Severely Decreased Stage V GFR <15 Very Little GFR Left ESRD GFR <15 on ORNITHOLOGY TEACHER 24 A Pathologist review of this differential can help in the evaluation of a differential diagnosis. Please order a Pathologist Review (PERISM) if deemed necessary. Results are subject to change if a Pathologist Review is performed. 25 THE CA 19-9 ASSAY IS PERFORM ED ON THE [place] [employer] BY CHEMILUMINESCENCE AND SHOULD NOT BE COMPARED INTERCHANGEABLY WITH OTHER METHODS. IT SHOULD NOT BE USED ALONE A SCREENING TEST OR DIAGNOSIS FOR THE PRESENCE OR ABSENCE OF MALIGNANT DISEASE. PREDICTIONS OF DISEASE RECURRENCE SHOULD NOT BE BASED SOLELY ON VALUES OBTAINED FROM SERIAL PATIENT SERUM VALUES. 26 A Pathologist review of this differential can help in the evaluation of a differential diagnosis. Please order a Pathologist Review (PERISM) if deemed necessary. Results are subject to change if a Pathologist Review is performed. 27 Units are mL/min/1.73 m2 Chronic Kidney Disease Staging per NKF: Stage I & II GFR >=60 Normal to Mildly Decreased Stage III GFR 30-59 Moderately Decreased Stage IV GFR 15-29 Severely Decreased Stage V GFR <15 Very Little GFR Left ESRD GFR <15 on ORNITHOLOGY TEACHER 28 CHRONIC KIDNEY DISEASE STAGI NG PER NKF: [...] ADOLESCENTS REPRESENTS INDIVIDUALA AGED 2-19 YEARS EXCLUSIVE. 29 CKD-EPI 30 CKD-EPI 31 A Pathologist review of this differential can help in the evaluation of a differential diagnosis. Please order a Pathologist Review (PERISM) if deemed necessary. Results are subject to change if a Pathologist Review is performed. 32 Units are mL/min/1.73 m2 Chronic Kidney Disease Staging per NKF: Stage I & II GFR >=60 Normal to Mildly Decreased Stage III GFR 30-59 Moderately Decreased Stage IV GFR 15-29 Severely Decreased Stage V GFR <15 Very Little GFR Left ESRD GFR <15 on ORNITHOLOGY TEACHER Procedures Date Code Description Status 11/17/2020 55184 Office/Outpatient Established Mo d MDM 30-39 Min Completed 07/29/2020 10045 Office/Outpatient Established Mo d MDM 30-39 Min Completed Medical Devices Description No Information Available Encounters Type Date Location Provider Dx Diagnosis Office Visit 11/17/2020 11:15a [place] [facility] Homero Sanchez M. D. 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 D. 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 09/04/2020 R73.01 Impaired fasting glucose Homero Da Silva M.D. 09/04/2020 R73.01 Impaired fasting glucose Laborat ory [place] Schedule 09/04/2020 E78.2 Mixed hyperlipidemia John Sanchez M.D. 09/04/2020 E78.2 Mixed hyperlipidemia Laboratory [place] Schedule 07/29/2020 C25.1 Malignant neoplasm of body of pa Homero Earl M.D. Plan of Treatment No Information Available Functional Status Description No Information Available Mental Status Description No Information Available Referrals Description No Information Available
--- OUTSIDE RECORDS SUMMARY | 2021-01-23 15:29 | CCD | Continuity of Care Document ---
Author Author Trace SANCHEZ M.D. Organization Unknown Address [address] [address] Phone [phone] Care Team Providers Care Unhairer Name Role Phone Nefatli Malik Kasandra RUST [phone] Problems Active Problems Provider Date Urolith Homero [...] CPT Code Status Date Vaccine Lot # 57607 Given 07/29/2015 Prevnar 13 Pneum o. Conj Ped. Vaccine 13 Valent (PCV13) For Im Use 94466 Given 07/24/2014 Zoster (Shingles) Vaccine 40802 Refused 02/22/2019 Influenza Virus Vaccine, Quadrivalent, Slit Virus, Im Use 3Y & Up [id number] Refused 02/13/2018 Influenza Virus Vaccine, Quadrivalent, Slit Virus, Im Use 3Y & Up 39539 Refused 02/03/2016 Influenza Virus Vaccine, Quadrivalent, Slit Virus, Im Use 3Y & Up Vital Signs Date Vital Result Comment 11/17/2020 11:02am BP Systolic 118 mmHg BP Diastolic 72 mmHg Body Temperature 98.1 F Heart Rate 76 /min Respiratory Rate 12 /min Height 68 inches 5'8" Weight 132.00 lb [place] Body Weight 154 lb BMI (Body Mass Index) 20.1 kg/m2 O2 % BldC Oximetry 94 % 07/29/2020 2:17pm BP Systolic 120 mmHg BP Diastolic 78 mmHg Body Temperature 97.9 F Heart Rate 50 /min Respiratory Rate 14 /min Height 68 inches 5'8" Weight 140.00 lb [place] Body Weight 154 lb BMI (Body Mass Index) 21.3 kg/m2 O2 % BldC Oximetry 95 % Results Test Acquired Date Facility Test Result H/L Range Note Comprehensive Metabolic Profil 12/10/2020 [facility] (Interface) [phone] Glucose, Fasting 129 mg/dL High 70-100 Blood [...] Ratio 1.3 Normal Laboratory test finding 12/10/2020 [facility] (Interface) [phone] Ca19-9 Tumor Marker,Carbohydra 06347.8 U/ML High <35.0 2 Blood Culture 12/10/2020 [facility] [phone] Blood Culture No growth after <SEE NOTE> 3 Blood Culture 12/10/2020 [facility] [phone] Blood Culture No growth after <SEE NOTE> 4 CBC With Auto Differential OB 12/10/2020 [facility] (Interface) [phone] White Blood Count 10.7 10 High 4.0-10.0 [...] 36.0-66.0 Lymph % 7.0 % Low 24.0-44.0 [place] % 33.2 % High 2.0-8.0 Eos % 0.8 % Normal 0.0-3.0 Baso % 0.4 % Normal 0.0-1.0 Immature Granulocyte % 4.3 % High 0-3.0 Nucleated Red Blood Cell % 0.0 % Normal 0-0 Neutrophils # 5.8 10 Normal 1.5-8.5 Lymph # 0.8 10 Low 1.5-5.0 [place] # 3.5 10 High 0.0-0.8 Eos # 0.1 10 Normal 0.0-0.5 Baso # 0.0 10 Normal 0.0-0.2 Laboratory test finding 11/10/2020 [facility] (Interface) [phone] Cytogenetics Fish For Path So See Pathology Re < SEE NOTE> Normal 5 BCR/Abl Screen For CML Path So See Pathology Re <SEE NOTE> Normal 6 CBC With Auto Differential OB 11/06/2020 [facility] (Interface) [phone] White Blood Count 38.5 10 Critical high [...] 36.0-66.0 Lymph % 4.1 % Low 24.0-44.0 [place] % 21.0 % High 2.0-8.0 Eos % 0.1 % Normal 0.0-3.0 Baso % 0.7 % Normal 0.0-1.0 Immature Granulocyte % 11.4 % High 0-3.0 Nucleated Red Blood Cell % 0.0 % Normal 0-0 Neutrophils # 24.2 10 High 1.5-8.5 Lymph # 1.6 10 Normal 1.5-5.0 [place] # 8.1 10 High 0.0-0.8 Eos # 0.0 10 Normal 0.0-0.5 Baso # 0.3 10 High 0.0-0.2 Comprehensive Metabolic Profil 11/06/2020 [facility] (Interface) [phone] Glucose, Fasting 133 mg/dL High 70-100 Blood [...] Ratio 1.0 Normal Laboratory test finding 11/06/2020 [facility] (Interface) [phone] Ca19-9 Tumor Marker,Carbohydra 6514.9 U/ML High <35.0 8 Laboratory test finding 10/23/2020 [facility] (Interface) [phone] Platelet Estimate DECREASED Normal Normal Immature Platelet Fraction 7.1 % Normal 0.0-10.91 Istat Chem8+ Panel 10/23/2020 [facility] [phone] iSTAT HCT 40.0 % Normal 38.0-51.0 iSTAT Glucose 232 mg/dL High 70-105 iSTAT Sodium 136 mEq/L Normal 136-145 iSTAT Potassium 3.6 mEq/L Normal 3.5-5.1 iSTAT CA++ 4.4 mg/dL Low 4.5-5.3 iSTAT Chloride 98 mEq/L Normal 98-109 iSTAT Co2 20.0 MM/L Low 23.0-27.0 iSTAT BUN 15 mg/dL Normal 8-26 iSTAT Creatinine 0.9 mg/dL Normal 0.6-1.3 Differential 10/23/2020 [facility] [phone] Neutrophils 84 % High 28-66 Bands 6 % Normal < 11 Lymphocytes 2 % Low 16-44 Monocytes 8 % High 0-5 RBC Morphology NORMAL Normal CBC With Differential 10/23/2020 [facility] (Interface) [phone] White Blood Count 23.5 10 High 4.0-10.0 [...] % High 0-0 Laboratory test finding 10/23/2020 [facility] (Interface) [phone] NT-Pro BNP 2080 pg/mL High <450 Basic Metabolic Profile 10/23/2020 [facility] (Interface) [phone] Glucose, Fasting 215 mg/dL High 70-100 Blood [...] mg/dL Low 8.8-10.2 Cardiac Marker Panel 10/23/2020 [facility] ( Interface) [phone] CPK Creatine Phosphokinase 24 U/L Low 39-30 8 CK-MB Value Mass < 1.0 NG/ML Normal <3.6 MB/CK Relative Index 4.17 High < Or =4 11 Troponin I 0.15 NG/ML High < 0.10 12 Laboratory test finding 10/23/2020 [facility] (Interface) [phone] Partial Thromboplastin Time 30.9 seconds Normal 25 .9-37.0 Prothrombin Time/Inr 10/23/2020 [facility] ( Interface) [phone] Prothrombin Time 15.9 seconds High 12.7-14.5 Inr 1.23 Normal 13 Influenxa A/B RSV Covid Amp 10/23/2020 [facility] (Interface) [phone] Influenza A Amplification NEGATIVE Normal Negati ve 14 Influenza B Amplification NEGATIVE Normal Negative 15 RSV Amplification NEGATIVE Normal Negative 16 Sars Covid-19 Amplification NEGATIVE Normal Negative 17 Laboratory test finding 10/23/2020 [facility] (Interface) [phone] Lactic Acid Sepsis Protocol 3.0 mmol/L Critical high 0 .4-2.0 18 Liver Profile 10/23/2020 [facility] ([facility]) [phone] Ast/Sgot 13 U/L Normal 7-37 Alt/SGPT 17 U/L Normal 12-78 Alkaline Phosphatase 132 U/L High 45-117 Bilirubin,Total 0.9 mg/dL Normal 0.2-1.0 Bilirubin,Direct 0.4 mg/dL High 0.0-0.2 Total Protein 5.9 GM/DL Low 6.4-8.2 Albumin 3.3 GM/DL Normal 3.2-5.2 Albumin/Globulin Ratio 1.3 Normal Coronavirus 2019 Nasopharygeal 10/15/2020 [facility] (Interface) [phone] Coronavirus 2019 Nasopharygeal ASSAY INFORMATIO <SEE N OTE> 19 CBC With Auto Differential OB 10/08/2020 [facility]) [phone] White Blood Count 9.8 10 Normal 4.0-10.0 [...] 36.0-66.0 Lymph % 8.1 % Low 24.0-44.0 [place] % 34.9 % High 2.0-8.0 Eos % 1.0 % Normal 0.0-3.0 Baso % 0.3 % Normal 0.0-1.0 Immature Granulocyte % 2.5 % Normal 0-3.0 Nucleated Red Blood Cell % 0.0 % Normal 0-0 Neutrophils # 5.2 10 Normal 1.5-8.5 Lymph # 0.8 10 Low 1.5-5.0 [place] # 3.4 10 High 0.0-0.8 Eos # 0.1 10 Normal 0.0-0.5 Baso # 0.0 10 Normal 0.0-0.2 Comprehensive Metabolic Profil 10/08/2020 [facility] ([facility]) [phone] Glucose, Fasting 131 mg/dL High 70-100 Blood [...] Ratio 1.8 Normal Laboratory test finding 10/08/2020 [facility] ([facility]) [phone] Ca19-9 Tumor Marker,Carbohydra 6310.2 U/ML High <35.0 22 Laboratory test finding 09/25/2020 [facility] ([facility]) [phone] Ca19-9 Tumor Marker,Carbohydra 5746.2 U/ML High <35.0 23 Comprehensive Metabolic Profil 09/18/2020 [facility]) [phone] Glucose, Fasting 120 mg/dL High 70-100 Blood [...] Normal CBC With Auto Differential OB 09/18/2020 [facility] (Interface) [phone] White Blood Count 8.0 10 Normal 4.0-10.0 [...] 36.0-66.0 Lymph % 10.8 % Low 24.0-44.0 [place] % 37.8 % High 2.0-8.0 Eos % 1.8 % Normal 0.0-3.0 Baso % 0.3 % Normal 0.0-1.0 Immature Granulocyte % 2.3 % Normal 0-3.0 Nucleated Red Blood Cell % 0.0 % Normal 0-0 Neutrophils # 3.8 10 Normal 1.5-8.5 Lymph # 0.9 10 Low 1.5-5.0 [place] # 3.0 10 High 0.0-0.8 Eos # [...] eGFR 103 # Calc 27 eGFR Non-Afr. Thai 89 # Calc 28 Lipid Panel 09/04/2020 [facility] 171 mg/dL 0 - 200 Trig 58 mg/dL 35 - 200 HDL 53 mg/dL 35 - 55 LDL_C 106 Calc 75 - 129 Cho/HDL Ratio 3.2 CALC CBC With Auto Differential OB 08/31/2020 [facility] (Interface) [phone] White Blood Count 9.6 10 Normal 4.0-10.0 [...] 36.0-66.0 Lymph % 6.8 % Low 24.0-44.0 [place] % 37.0 % High 2.0-8.0 Eos % 0.8 % Normal 0.0-3.0 Baso % 0.2 % Normal 0.0-1.0 Immature Granulocyte % 1.6 % Normal 0-3.0 Nucleated Red Blood Cell % 0.0 % Normal 0-0 Neutrophils # 5.2 10 Normal 1.5-8.5 Lymph # 0.7 10 Low 1.5-5.0 [place] # 3.6 10 High 0.0-0.8 Eos # 0.1 10 Normal 0.0-0.5 Baso # 0.0 10 Normal 0.0-0.2 Comprehensive Metabolic Profil 08/31/2020 [facility] (Interface) [phone] Glucose, Fasting 136 mg/dL High 70-100 Blood [...] eGFR 97 # Calc 32 eGFR Non-Afr. Thai 84 # Calc 33 CBC W/Automated Diff 06/30/2020 [place] [address] [phone] CBC W/Automated Diff (SEE NOTE) 34 WBC [...] Lymph 9.8 % Low 25.0 - 40.0 [place] 34.8 % High 3.0 - 8.0 Eos 0.9 % 0.0 - 7.0 Baso 0.2 % 0.0 - 2.0 %Ig 2.2 % High 0.0 - 0.0 %NRBC 0.0 % 0.0 - 0.0 #Neut 4.40 10^3/uL 2.00 - 6.90 #Lymph 0.83 10^3/uL 0.60 - 3.40 #[place] 2.95 10^3/uL High 0.00 - 0.90 #Eos 0.08 10^3/uL 0.00 - 0.70 #Baso 0.02 10^3/uL 0.00 - 0.20 #Ig 0.19 10^3/uL High 0.00 - 0.10 #NRBC 0.00 10^3/uL 0.00 - 0.00 Manual Diff SEE BELOW Segs 33 % Low 37 - 80 Band 13 % High 0 - 5 %Lymph 15 % Low 25 - 40 %[place] 39 % High 3 - 8 RBC [...] Little GFR Left ESRD GFR <15 on [employer] 2 THE CA 19-9 ASSAY IS PERFORM ED ON THE [employer] BY CHEMILUMINESCENCE AND SHOULD NOT BE COMPARED INTERCHANGEABLY WITH OTHER METHODS. IT SHOULD NOT BE USED ALONE A SCREENING TEST OR DIAGNOSIS FOR THE PRESENCE OR ABSENCE OF MALIGNANT DISEASE. PREDICTIONS OF DISEASE RECURRENCE SHOULD NOT BE BASED SOLELY ON VALUES OBTAINED FROM SERIAL PATIENT SERUM VALUES. 3 No growth after 48 hours . A ll specimens observed for 5 days. Results final at that time. No growth after 24 hours . All specimens observed for 5 days. Results final at that time. No Growth after 72 hours. All specimens observed for 5 days. Results final at that time. 4 No growth after 48 hours . A ll specimens observed for 5 days. Results final at that time. No growth after 24 hours . All specimens observed for 5 days. Results final at that time. No Growth after 72 hours. All specimens observed for 5 days. Results final at that time. 5 See Pathology Report Specimen Collection for Pathology Reference Lab Testing. Refer to [facility] Pathology Report for Results:[id number] See Pathology Report Specimen Collection for Pathology Reference Lab Testing. Refer to [facility] Pathology Report for Results: [id number] Units are mL/min/1.73 m2 Chronic Kidney Disease Staging per NKF: Stage I & II GFR >=60 Normal to Mildly Decreased Stage III GFR 30-59 Moderately Decreased Stage IV GFR 15-29 Severely Decreased Stage V GFR <15 Very Little GFR Left ESRD GFR <15 on [employer] 8 THE CA 19-9 ASSAY IS PERFORM ED ON THE [employer] BY CHEMILUMINESCENCE AND SHOULD NOT BE COMPARED [...] Little GFR Left ESRD GFR <15 on [employer] 11 DIAGNOSIS CRITERIA MMB ng/ml Relative Index (RI) NON-AMI < or = 5 N/A PRINCE ZONE > 5 < or = 4 AMI > 5 > 4 12 Troponin I Reference Interva l for Wunsch-Brautkleid LOCI: 99th Percentile= 0.00-0.045 ng/ml Risk Stratification: [...] pathogens. DISCLAIMER: Testing was performed using the [employer] SARS-CoV-2 test. This test was developed and its performance characteristics determined by [employer]. This test has not been FDA cleared [...] Administration under the Emergency Use Authorization (EUA). [facility] and [facility] are designated as high complexity laboratories by [...] Little GFR Left ESRD GFR <15 on [employer] 22 THE CA 19-9 ASSAY IS PERFORM ED ON THE [employer] BY CHEMILUMINESCENCE AND SHOULD NOT BE COMPARED INTERCHANGEABLY WITH OTHER METHODS. IT SHOULD NOT BE USED ALONE A SCREENING TEST OR DIAGNOSIS FOR THE PRESENCE OR ABSENCE OF MALIGNANT DISEASE. PREDICTIONS OF DISEASE RECURRENCE SHOULD NOT BE BASED SOLELY ON VALUES OBTAINED FROM SERIAL PATIENT SERUM VALUES. 23 THE CA 19-9 ASSAY IS PERFORM ED ON THE [employer] BY CHEMILUMINESCENCE AND SHOULD NOT BE COMPARED [...] Little GFR Left ESRD GFR <15 on [employer] 25 A Pathologist review of this differential [...] Little GFR Left ESRD GFR <15 on [employer] 31 NORMAL RANGES Age WBC RBC HGB [...] HCT IS 5% LESS SOURCE FOR DATA: [employer] 1800 OPERATION MANUAL( AUTOMATED BLOOD COUNTS AND [...] disease. Procedures Date Code Description Status 11/17/2020 62963 Office/Outpatient Established Mo d MDM 30-39 Min Completed 07/29/2020 36306 Office/Outpatient Established Mo d MDM 30-39 Min Completed 06/29/2020 33335 Office/Outpatient Established Mo d MDM 30-39 Min Completed Medical Devices Description No Information Available Encounters Type Date Location Provider Dx Diagnosis Office Visit 11/17/2020 11:15a [place] [facility] Homero Sanchez M. D. 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 D. C25.1 Malignant neoplasm of body of pancreas Office Visit 06/29/2020 3:40p [place] [facility] Homero Sanchez M. D. 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 09/04/2020 R73.01 Impaired fasting glucose Homero Da Silva M.D. 09/04/2020 R73.01 [facility] E78.2 Mixed hyperlipidemia John Sanchez M.D. 09/04/2020 E78.2 Mixed hyperlipidemia Laboratory [place] Schedule 07/29/2020 C25.1 Malignant neoplasm of body of pa Homero Earl M.D. 06/29/2020 C25.1 Malignant neoplasm of body of pa Homero Earl M.D. Plan of Treatment No Information Available Functional Status Description No Information Available Mental Status Description No Information Available Referrals Refer to Reason for Referral Status Appt Date [facility] pancreatic mass- eval and rx , MRCP and CA19-9 pending Sent 07/27/2020 [address] [place] [address]
[2021-01-23] MEDS ORDERED: PEG6SYR TD (15:30)
--- OUTSIDE RECORDS SUMMARY | 2021-01-23 15:30 | CCD | Continuity of Care Document ---
Author Author Trace SANCHEZ M.D. Organization Unknown Address [address] [address] Phone [phone] Care Team Providers Care [employer] Repairer Name Role Phone Neftali Malik Kasandra [facility] [phone] Problems Active Problems Provider Date Urolith Homero [...] CPT Code Status Date Vaccine Lot # [id number] Given 07/29/2015 Prevnar 13 Pneum o. Conj Ped. Vaccine 13 Valent (PCV13) For Im Use 64714 Given 07/24/2014 Zoster (Shingles) Vaccine 32751 Refused 02/22/2019 Influenza Virus Vaccine, Quadrivalent, Slit Virus, Im Use 3Y & Up 99058 Refused 02/13/2018 Influenza Virus Vaccine, Quadrivalent, Slit Virus, Im Use 3Y & Up 54171 Refused 02/03/2016 Influenza Virus Vaccine, Quadrivalent, Slit Virus, Im Use 3Y & Up Vital Signs Date Vital Result Comment 11/17/2020 11:02am BP Systolic 118 mmHg BP Diastolic 72 mmHg Body Temperature 98.1 F Heart Rate 76 /min Respiratory Rate 12 /min Height 68 inches 5'8" Weight 132.00 lb [place] Body Weight 154 lb BMI (Body Mass Index) 20.1 kg/m2 O2 % BldC Oximetry 94 % 07/29/2020 2:17pm BP Systolic 120 mmHg BP Diastolic 78 mmHg Body Temperature 97.9 F Heart Rate 50 /min Respiratory Rate 14 /min Height 68 inches 5'8" Weight 140.00 lb [place] Body Weight 154 lb BMI (Body Mass Index) 21.3 kg/m2 O2 % BldC Oximetry 95 % Results Test Acquired Date Facility Test Result H/L Range Note Comprehensive Metabolic Profil 12/10/2020 [facility] (Interface) [phone] Glucose, Fasting 129 mg/dL High 70-100 Blood [...] Ratio 1.3 Normal Laboratory test finding 12/10/2020 [facility] (Interface) [phone] Ca19-9 Tumor Marker,Carbohydra 20753.8 U/ML High <35.0 2 Blood Culture 12/10/2020 [facility] [phone] Blood Culture No growth after <SEE NOTE> 3 Blood Culture 12/10/2020 [facility] [phone] Blood Culture No growth after <SEE NOTE> 4 CBC With Auto Differential OB 12/10/2020 [facility] (Interface) [phone] White Blood Count 10.7 10 High 4.0-10.0 [...] 36.0-66.0 Lymph % 7.0 % Low 24.0-44.0 Payne % 33.2 % High 2.0-8.0 Eos % 0.8 % Normal 0.0-3.0 Baso % 0.4 % Normal 0.0-1.0 Immature Granulocyte % 4.3 % High 0-3.0 Nucleated Red Blood Cell % 0.0 % Normal 0-0 Neutrophils # 5.8 10 Normal 1.5-8.5 Lymph # 0.8 10 Low 1.5-5.0 Payne # 3.5 10 High 0.0-0.8 Eos # 0.1 10 Normal 0.0-0.5 Baso # 0.0 10 Normal 0.0-0.2 Laboratory test finding 11/10/2020 [facility] (Interface) [phone] Cytogenetics Fish For Path So See Pathology Re < SEE NOTE> Normal 5 BCR/Abl Screen For CML Path So See Pathology Re <SEE NOTE> Normal 6 CBC With Auto Differential OB 11/06/2020 [facility] (Interface) [phone] White Blood Count 38.5 10 Critical high [...] 36.0-66.0 Lymph % 4.1 % Low 24.0-44.0 Payne % 21.0 % High 2.0-8.0 Eos % 0.1 % Normal 0.0-3.0 Baso % 0.7 % Normal 0.0-1.0 Immature Granulocyte % 11.4 % High 0-3.0 Nucleated Red Blood Cell % 0.0 % Normal 0-0 Neutrophils # 24.2 10 High 1.5-8.5 Lymph # 1.6 10 Normal 1.5-5.0 Payne # 8.1 10 High 0.0-0.8 Eos # 0.0 10 Normal 0.0-0.5 Baso # 0.3 10 High 0.0-0.2 Comprehensive Metabolic Profil 11/06/2020 [facility] (Interface) [phone] Glucose, Fasting 133 mg/dL High 70-100 Blood [...] Ratio 1.0 Normal Laboratory test finding 11/06/2020 [facility] (Interface) [phone] Ca19-9 Tumor Marker,Carbohydra 6514.9 U/ML High <35.0 8 Laboratory test finding 10/23/2020 [facility] (Interface) [phone] Platelet Estimate DECREASED Normal Normal Immature Platelet Fraction 7.1 % Normal 0.0-10.91 Istat Chem8+ Panel 10/23/2020 [facility] [phone] iSTAT HCT 40.0 % Normal 38.0-51.0 iSTAT Glucose 232 mg/dL High 70-105 iSTAT Sodium 136 mEq/L Normal 136-145 iSTAT Potassium 3.6 mEq/L Normal 3.5-5.1 iSTAT CA++ 4.4 mg/dL Low 4.5-5.3 iSTAT Chloride 98 mEq/L Normal 98-109 iSTAT Co2 20.0 MM/L Low 23.0-27.0 iSTAT BUN 15 mg/dL Normal 8-26 iSTAT Creatinine 0.9 mg/dL Normal 0.6-1.3 Differential 10/23/2020 [facility] [phone] Neutrophils 84 % High 28-66 Bands 6 % Normal < 11 Lymphocytes 2 % Low 16-44 Monocytes 8 % High 0-5 RBC Morphology NORMAL Normal CBC With Differential 10/23/2020 [facility] (Interface) [phone] White Blood Count 23.5 10 High 4.0-10.0 [...] % High 0-0 Laboratory test finding 10/23/2020 [facility] (Interface) [phone] NT-Pro BNP 2080 pg/mL High <450 Basic Metabolic Profile 10/23/2020 [facility] (Interface) [phone] Glucose, Fasting 215 mg/dL High 70-100 Blood [...] mg/dL Low 8.8-10.2 Cardiac Marker Panel 10/23/2020 [facility] ( Interface) [phone] CPK Creatine Phosphokinase 24 U/L Low 39-30 8 CK-MB Value Mass < 1.0 NG/ML Normal <3.6 MB/CK Relative Index 4.17 High < Or =4 11 Troponin I 0.15 NG/ML High < 0.10 12 Laboratory test finding 10/23/2020 [facility] (Interface) [phone] Partial Thromboplastin Time 30.9 seconds Normal 25 .9-37.0 Prothrombin Time/Inr 10/23/2020 [facility] ( Interface) [phone] Prothrombin Time 15.9 seconds High 12.7-14.5 Inr 1.23 Normal 13 Influenxa A/B RSV Covid Amp 10/23/2020 [facility] (Interface) [phone] Influenza A Amplification NEGATIVE Normal Negati ve 14 Influenza B Amplification NEGATIVE Normal Negative 15 RSV Amplification NEGATIVE Normal Negative 16 Sars Covid-19 Amplification NEGATIVE Normal Negative 17 Laboratory test finding 10/23/2020 [facility] (Interface) [phone] Lactic Acid Sepsis Protocol 3.0 mmol/L Critical high 0 .4-2.0 18 Liver Profile 10/23/2020 [facility] ([facility]) [phone] Ast/Sgot 13 U/L Normal 7-37 Alt/SGPT 17 U/L Normal 12-78 Alkaline Phosphatase 132 U/L High 45-117 Bilirubin,Total 0.9 mg/dL Normal 0.2-1.0 Bilirubin,Direct 0.4 mg/dL High 0.0-0.2 Total Protein 5.9 GM/DL Low 6.4-8.2 Albumin 3.3 GM/DL Normal 3.2-5.2 Albumin/Globulin Ratio 1.3 Normal Coronavirus 2019 Nasopharygeal 10/15/2020 [facility] (Interface) [phone] Coronavirus 2019 Nasopharygeal ASSAY INFORMATIO <SEE N OTE> 19 CBC With Auto Differential OB 10/08/2020 [facility]) [phone] White Blood Count 9.8 10 Normal 4.0-10.0 [...] 36.0-66.0 Lymph % 8.1 % Low 24.0-44.0 Payne % 34.9 % High 2.0-8.0 Eos % 1.0 % Normal 0.0-3.0 Baso % 0.3 % Normal 0.0-1.0 Immature Granulocyte % 2.5 % Normal 0-3.0 Nucleated Red Blood Cell % 0.0 % Normal 0-0 Neutrophils # 5.2 10 Normal 1.5-8.5 Lymph # 0.8 10 Low 1.5-5.0 Payne # 3.4 10 High 0.0-0.8 Eos # 0.1 10 Normal 0.0-0.5 Baso # 0.0 10 Normal 0.0-0.2 Comprehensive Metabolic Profil 10/08/2020 [facility] ([facility]) [phone] Glucose, Fasting 131 mg/dL High 70-100 Blood [...] Ratio 1.8 Normal Laboratory test finding 10/08/2020 [facility] ([facility]) [phone] Ca19-9 Tumor Marker,Carbohydra 6310.2 U/ML High <35.0 22 Laboratory test finding 09/25/2020 [facility] ([facility]) [phone] Ca19-9 Tumor Marker,Carbohydra 5746.2 U/ML High <35.0 23 Comprehensive Metabolic Profil 09/18/2020 [facility]) [phone] Glucose, Fasting 120 mg/dL High 70-100 Blood [...] Normal CBC With Auto Differential OB 09/18/2020 [facility] (Interface) [phone] White Blood Count 8.0 10 Normal 4.0-10.0 [...] 36.0-66.0 Lymph % 10.8 % Low 24.0-44.0 Payne % 37.8 % High 2.0-8.0 Eos % 1.8 % Normal 0.0-3.0 Baso % 0.3 % Normal 0.0-1.0 Immature Granulocyte % 2.3 % Normal 0-3.0 Nucleated Red Blood Cell % 0.0 % Normal 0-0 Neutrophils # 3.8 10 Normal 1.5-8.5 Lymph # 0.9 10 Low 1.5-5.0 Payne # 3.0 10 High 0.0-0.8 Eos # [...] eGFR 103 # Calc 27 eGFR Non-Afr. Nigerian 89 # Calc 28 Lipid Panel 09/04/2020 [facility] Chol 171 mg/dL 0 - 200 Trig 58 mg/dL 35 - 200 HDL 53 mg/dL 35 - 55 LDL_C 106 Calc 75 - 129 Cho/HDL Ratio 3.2 CALC CBC With Auto Differential OB 08/31/2020 [facility] (Interface) [phone] White Blood Count 9.6 10 Normal 4.0-10.0 [...] 36.0-66.0 Lymph % 6.8 % Low 24.0-44.0 Payne % 37.0 % High 2.0-8.0 Eos % 0.8 % Normal 0.0-3.0 Baso % 0.2 % Normal 0.0-1.0 Immature Granulocyte % 1.6 % Normal 0-3.0 Nucleated Red Blood Cell % 0.0 % Normal 0-0 Neutrophils # 5.2 10 Normal 1.5-8.5 Lymph # 0.7 10 Low 1.5-5.0 Payne # 3.6 10 High 0.0-0.8 Eos # 0.1 10 Normal 0.0-0.5 Baso # 0.0 10 Normal 0.0-0.2 Comprehensive Metabolic Profil 08/31/2020 [facility] (Interface) [phone] Glucose, Fasting 136 mg/dL High 70-100 Blood [...] eGFR 97 # Calc 32 eGFR Non-Afr. Nigerian 84 # Calc 33 CBC W/Automated Diff 06/30/2020 [place] [address] [phone] CBC W/Automated Diff (SEE NOTE) 34 WBC [...] Lymph 9.8 % Low 25.0 - 40.0 Payne 34.8 % High 3.0 - 8.0 Eos 0.9 % 0.0 - 7.0 Baso 0.2 % 0.0 - 2.0 %Ig 2.2 % High 0.0 - 0.0 %NRBC 0.0 % 0.0 - 0.0 #Neut 4.40 10^3/uL 2.00 - 6.90 #Lymph 0.83 10^3/uL 0.60 - 3.40 #Payne 2.95 10^3/uL High 0.00 - 0.90 #Eos 0.08 10^3/uL 0.00 - 0.70 #Baso 0.02 10^3/uL 0.00 - 0.20 #Ig 0.19 10^3/uL High 0.00 - 0.10 #NRBC 0.00 10^3/uL 0.00 - 0.00 Manual Diff SEE BELOW Segs 33 % Low 37 - 80 Band 13 % High 0 - 5 %Lymph 15 % Low 25 - 40 %Payne 39 % High 3 - 8 RBC [...] Little GFR Left ESRD GFR <15 on INVESTMENT RECOVERY TECHNICIAN 2 THE CA 19-9 ASSAY IS PERFORM ED ON THE [facility] BY CHEMILUMINESCENCE AND SHOULD NOT BE COMPARED [...] for Pathology Reference Lab Testing. Refer to [facility] Pathology Report for Results:[id number] See Pathology Report Specimen Collection for Pathology Reference Lab Testing. Refer to [facility] Pathology Report for Results: [id number] Units are mL/min/1.73 m2 Chronic Kidney Disease Staging per NKF: Stage I & II GFR >=60 Normal to Mildly Decreased Stage III GFR 30-59 Moderately Decreased Stage IV GFR 15-29 Severely Decreased Stage V GFR <15 Very Little GFR Left ESRD GFR <15 on INVESTMENT RECOVERY TECHNICIAN 8 THE CA 19-9 ASSAY IS PERFORM ED ON THE [facility] BY CHEMILUMINESCENCE AND SHOULD NOT BE COMPARED [...] Little GFR Left ESRD GFR <15 on INVESTMENT RECOVERY TECHNICIAN 11 DIAGNOSIS CRITERIA MMB ng/ml Relative Index (RI) NON-AMI < or = 5 N/A PRINCE ZONE > 5 < or = 4 AMI > 5 > 4 12 Troponin I Reference Interva l for [facility] LOCI: 99th Percentile= 0.00-0.045 ng/ml Risk Stratification: [...] pathogens. DISCLAIMER: Testing was performed using the [facility] SARS-CoV-2 test. This test was developed and its performance characteristics determined by [facility]. This test has not been FDA cleared [...] Administration under the Emergency Use Authorization (EUA). [facility] and [facility] are designated as high complexity laboratories by [...] Little GFR Left ESRD GFR <15 on INVESTMENT RECOVERY TECHNICIAN 22 THE CA 19-9 ASSAY IS PERFORM ED ON THE [place] [facility] BY CHEMILUMINESCENCE AND SHOULD NOT BE COMPARED INTERCHANGEABLY WITH OTHER METHODS. IT SHOULD NOT BE USED ALONE A SCREENING TEST OR DIAGNOSIS FOR THE PRESENCE OR ABSENCE OF MALIGNANT DISEASE. PREDICTIONS OF DISEASE RECURRENCE SHOULD NOT BE BASED SOLELY ON VALUES OBTAINED FROM SERIAL PATIENT SERUM VALUES. 23 THE CA 19-9 ASSAY IS PERFORM ED ON THE [facility] BY CHEMILUMINESCENCE AND SHOULD NOT BE COMPARED [...] Little GFR Left ESRD GFR <15 on INVESTMENT RECOVERY TECHNICIAN 25 A Pathologist review of this differential [...] Little GFR Left ESRD GFR <15 on INVESTMENT RECOVERY TECHNICIAN 31 NORMAL RANGES Age WBC RBC HGB [...] HCT IS 5% LESS SOURCE FOR DATA: [employer] 1800 OPERATION MANUAL( AUTOMATED BLOOD COUNTS AND [...] disease. Procedures Date Code Description Status 11/17/2020 59116 Office/Outpatient Established Mo d MDM 30-39 Min Completed 07/29/2020 01186 Office/Outpatient Established Mo d MDM 30-39 Min Completed 06/29/2020 19698 Office/Outpatient Established Mo d MDM 30-39 Min Completed Medical Devices Description No Information Available Encounters Type Date Location Provider Dx Diagnosis Office Visit 11/17/2020 11:15a [place] [facility] Homero Sanchez M. D. C25.1 Malignant neoplasm of body of pancreas Z95.2 Presence of prosthetic heart valve Office Visit 07/29/2020 1:30p [facility] Homero Sanchez M. D. C25.1 Malignant neoplasm of body of pancreas Office Visit 06/29/2020 3:40p [facility] [facility] Homero Sanchez M. D. 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 09/04/2020 R73.01 Impaired fasting glucose Homero Da Silva M.D. 09/04/2020 R73.01 [facility] E78.2 Mixed hyperlipidemia John Sanchez M.D. 09/04/2020 E78.2 Mixed hyperlipidemia Laboratory [place] Schedule 07/29/2020 C25.1 Malignant neoplasm of body [...] , MRCP and CA19-9 pending Sent 07/27/2020 [place] [address]
--- OUTSIDE RECORDS SUMMARY | 2021-01-23 15:30 | CCD | Continuity of Care Document ---
Author Author Trace SANCHEZ M.D. Organization Unknown Address [address] [address] Phone [phone] Care Team Providers Care Air/Ocean Export Clerk Name Role Phone NeftaliMalik Kasandra [facility] [phone] Problems Active Problems Provider Date Urolith Homero [...] 1970 Recreational Drug Use Denies Drug Use Allergies, Adverse Reactions, Alerts Active Allergies Criticality Reaction | Severity Comments [...] CPT Code Status Date Vaccine Lot # [id number] Given 07/29/2015 Prevnar 13 Pneum o. Conj Ped. Vaccine 13 Valent (PCV13) For Im Use [id number] Given 07/24/2014 Zoster (Shingles) Vaccine 51841 Refused 02/22/2019 Influenza Virus Vaccine, Quadrivalent, Slit Virus, Im Use 3Y & Up 41762 Refused 02/13/2018 Influenza Virus Vaccine, Quadrivalent, Slit Virus, Im Use 3Y & Up 90387 Refused 02/03/2016 Influenza Virus Vaccine, Quadrivalent, Slit Virus, Im Use 3Y & Up Vital Signs Date Vital Result Comment 11/17/2020 11:02am BP Systolic 118 mmHg BP Diastolic 72 mmHg Body Temperature 98.1 F Heart Rate 76 /min Respiratory Rate 12 /min Height 68 inches 5'8" Weight 132.00 lb Harbinger Body Weight 154 lb BMI (Body Mass Index) 20.1 kg/m2 O2 % BldC Oximetry 94 % 07/29/2020 2:17pm BP Systolic 120 mmHg BP Diastolic 78 mmHg Body Temperature 97.9 F Heart Rate 50 /min Respiratory Rate 14 /min Height 68 inches 5'8" Weight 140.00 lb Harbinger Body Weight 154 lb BMI (Body Mass Index) 21.3 kg/m2 O2 % BldC Oximetry 95 % Results Test Acquired Date Facility Test Result H/L Range Note Laboratory test finding 11/10/2020 [facility] (Interface) [phone] Cytogenetics Fish For Path So See Pathology Re < SEE NOTE> Normal 1 BCR/Abl Screen For CML Path So See Pathology Re <SEE NOTE> Normal 2 CBC With Auto Differential OB 11/06/2020 [facility] (Interface) [phone] White Blood Count 38.5 10 Critical high [...] 36.0-66.0 Lymph % 4.1 % Low 24.0-44.0 [place] % 21.0 % High 2.0-8.0 Eos % 0.1 % Normal 0.0-3.0 Baso % 0.7 % Normal 0.0-1.0 Immature Granulocyte % 11.4 % High 0-3.0 Nucleated Red Blood Cell % 0.0 % Normal 0-0 Neutrophils # 24.2 10 High 1.5-8.5 Lymph # 1.6 10 Normal 1.5-5.0 [place] # 8.1 10 High 0.0-0.8 Eos # 0.0 10 Normal 0.0-0.5 Baso # 0.3 10 High 0.0-0.2 Comprehensive Metabolic Profil 11/06/2020 [facility] (Interface) [phone] Glucose, Fasting 133 mg/dL High 70-100 Blood Urea Nitrogen 16 mg/dL Normal 7-18 Creatinine For GFR 0.71 mg/dL Normal 0.70-1.30 Glomerular Filtration Rate > 60.0 Normal >35 3 Sodium Level 139 mEq/L Normal 136-145 [...] Ratio 1.0 Normal Laboratory test finding 11/06/2020 [facility] (Interface) [phone] Ca19-9 Tumor Marker,Carbohydra 6514.9 U/ML High <35.0 4 Liver Profile 10/23/2020 [facility] (I nterface) [phone] Ast/Sgot 13 U/L Normal 7-37 Alt/SGPT 17 U/L Normal 12-78 Alkaline Phosphatase 132 U/L High 45-117 Bilirubin,Total 0.9 mg/dL Normal 0.2-1.0 Bilirubin,Direct 0.4 mg/dL High 0.0-0.2 Total Protein 5.9 GM/DL Low 6.4-8.2 Albumin 3.3 GM/DL Normal 3.2-5.2 Albumin/Globulin Ratio 1.3 Normal Istat Chem8+ Panel 10/23/2020 [facility]) [phone] iSTAT HCT 40.0 % Normal 38.0-51.0 iSTAT Glucose 232 mg/dL High 70-105 iSTAT Sodium 136 mEq/L Normal 136-145 iSTAT Potassium 3.6 mEq/L Normal 3.5-5.1 iSTAT CA++ 4.4 mg/dL Low 4.5-5.3 iSTAT Chloride 98 mEq/L Normal 98-109 iSTAT Co2 20.0 MM/L Low 23.0-27.0 iSTAT BUN 15 mg/dL Normal 8-26 iSTAT Creatinine 0.9 mg/dL Normal 0.6-1.3 Laboratory test finding 10/23/2020 [facility] (Interface) [phone] Platelet Estimate DECREASED Normal Normal Immature Platelet Fraction 7.1 % Normal 0.0-10.91 Differential 10/23/2020 [facility]) [phone] Neutrophils 84 % High 28-66 Bands 6 % Normal < 11 Lymphocytes 2 % Low 16-44 Monocytes 8 % High 0-5 RBC Morphology NORMAL Normal CBC With Differential 10/23/2020 [facility] (Interface) [phone] White Blood Count 23.5 10 High 4.0-10.0 5 Red Blood Count 4.14 10 Low 4.30-6.10 [...] % High 0-0 Laboratory test finding 10/23/2020 [facility] (Interface) [phone] NT-Pro BNP 2080 pg/mL High <450 Basic Metabolic Profile 10/23/2020 [facility] (Interface) [phone] Glucose, Fasting 215 mg/dL High 70-100 Blood Urea Nitrogen 15 mg/dL Normal 7-18 Creatinine For GFR 1.13 mg/dL Normal 0.70-1.30 Glomerular Filtration Rate > 60.0 Normal >35 6 Sodium Level 137 mEq/L Normal 136-145 Potassium Serum 3.6 mEq/L Normal 3.5-5.1 Chloride Level 102 mEq/L Normal 98-107 Carbon Dioxide Level 24 mEq/L Normal 21-32 Anion Gap 11 mEq/L Normal 8-16 Calcium Level 8.7 mg/dL Low 8.8-10.2 Cardiac Marker Panel 10/23/2020 [facility] ( Interface) [phone] CPK Creatine Phosphokinase 24 U/L Low 39-30 8 CK-MB Value Mass < 1.0 NG/ML Normal <3.6 MB/CK Relative Index 4.17 High < Or =4 7 Troponin I 0.15 NG/ML High < 0.10 8 Laboratory test finding 10/23/2020 [facility] (Interface) [phone] Partial Thromboplastin Time 30.9 seconds Normal 25 .9-37.0 Prothrombin Time/Inr 10/23/2020 [facility] ( Interface) [phone] Prothrombin Time 15.9 seconds High 12.7-14.5 Inr 1.23 Normal 9 Influenxa A/B RSV Covid Amp 10/23/2020 [facility] (Interface) [phone] Influenza A Amplification NEGATIVE Normal Negati ve 10 Influenza B Amplification NEGATIVE Normal Negative 11 RSV Amplification NEGATIVE Normal Negative 12 Sars Covid-19 Amplification NEGATIVE Normal Negative 13 Laboratory test finding 10/23/2020 [facility] (Interface) [phone] Lactic Acid Sepsis Protocol 3.0 mmol/L Critical high 0 .4-2.0 14 Coronavirus 2019 [facility] [phone] Coronavirus 2019 Nasopharygeal ASSAY INFORMATIO <SEE N OTE> 15 CBC With Auto Differential OB 10/08/2020 [facility]) [phone] White Blood Count 9.8 10 Normal 4.0-10.0 16 Red Blood Count 4.82 10 Normal 4.30-6.10 [...] 36.0-66.0 Lymph % 8.1 % Low 24.0-44.0 [place] % 34.9 % High 2.0-8.0 Eos % 1.0 % Normal 0.0-3.0 Baso % 0.3 % Normal 0.0-1.0 Immature Granulocyte % 2.5 % Normal 0-3.0 Nucleated Red Blood Cell % 0.0 % Normal 0-0 Neutrophils # 5.2 10 Normal 1.5-8.5 Lymph # 0.8 10 Low 1.5-5.0 [place] # 3.4 10 High 0.0-0.8 Eos # 0.1 10 Normal 0.0-0.5 Baso # 0.0 10 Normal 0.0-0.2 Laboratory test finding 10/08/2020 [facility] ([facility]) [phone] Ca19-9 Tumor Marker,Carbohydra 6310.2 U/ML High <35.0 17 Comprehensive Metabolic Profil 10/08/2020 [facility]) [phone] Glucose, Fasting 131 mg/dL High 70-100 Blood Urea Nitrogen 15 mg/dL Normal 7-18 Creatinine For GFR 0.73 mg/dL Normal 0.70-1.30 Glomerular Filtration Rate > 60.0 Normal >35 1 8 Sodium Level 139 mEq/L Normal 136-145 Potassium [...] Albumin/Globulin Ratio 1.8 Normal Laboratory test finding 09/25/2020 [facility] (Interface) [phone] Ca19-9 Tumor Marker,Carbohydra 5746.2 U/ML High <35.0 19 CBC With Auto Differential OB 09/18/2020 [facility] (Interface) [phone] White Blood Count 8.0 10 Normal 4.0-10.0 20 Red Blood Count 4.52 10 Normal 4.30-6.10 [...] 36.0-66.0 Lymph % 10.8 % Low 24.0-44.0 [place] % 37.8 % High 2.0-8.0 Eos % 1.8 % Normal 0.0-3.0 Baso % 0.3 % Normal 0.0-1.0 Immature Granulocyte % 2.3 % Normal 0-3.0 Nucleated Red Blood Cell % 0.0 % Normal 0-0 Neutrophils # 3.8 10 Normal 1.5-8.5 Lymph # 0.9 10 Low 1.5-5.0 [place] # 3.0 10 High 0.0-0.8 Eos # 0.1 10 Normal 0.0-0.5 Baso # 0.0 10 Normal 0.0-0.2 Comprehensive Metabolic Profil 09/18/2020 [facility] ([facility]) [phone] Glucose, Fasting 120 mg/dL High 70-100 Blood Urea Nitrogen 13 mg/dL Normal 7-18 Creatinine For GFR 0.74 mg/dL Normal 0.70-1.30 Glomerular Filtration Rate > 60.0 Normal >35 2 1 Sodium Level 140 mEq/L Normal 136-145 Potassium [...] Ratio 1.7 Normal Laboratory test finding 09/04/2020 [facility] Hemoglobin A1c 6.1 % 4.50-6.20 CMP 09/04/2020 [facility] Glu 128 mg/dL High 70 - 110 22 BUN 16 mg/dL 8 - 23 Creat [...] Gap 16 mmol/L eGFR 103 # Calc 23 eGFR Non-Afr. Burkinan 89 # Calc 24 Lipid Panel 09/04/2020 [facility] Chol 171 mg/dL 0 - 200 Trig 58 mg/dL 35 - 200 HDL 53 mg/dL 35 - 55 LDL_C 106 Calc 75 - 129 Cho/HDL Ratio 3.2 CALC CBC With Auto Differential OB 08/31/2020 [facility] (Interface) [phone] White Blood Count 9.6 10 Normal 4.0-10.0 25 Red Blood Count [...] 36.0-66.0 Lymph % 6.8 % Low 24.0-44.0 [place] % 37.0 % High 2.0-8.0 Eos % 0.8 % Normal 0.0-3.0 Baso % 0.2 % Normal 0.0-1.0 Immature Granulocyte % 1.6 % Normal 0-3.0 Nucleated Red Blood Cell % 0.0 % Normal 0-0 Neutrophils # 5.2 10 Normal 1.5-8.5 Lymph # 0.7 10 Low 1.5-5.0 [place] # 3.6 10 High 0.0-0.8 Eos # 0.1 10 Normal 0.0-0.5 Baso # 0.0 10 Normal 0.0-0.2 Comprehensive Metabolic Profil 08/31/2020 [facility] (Interface) [phone] Glucose, Fasting 136 mg/dL High 70-100 Blood [...] Glu 147 mg/dL High 70 - 110 27 BUN 14 mg/dL 8 - 23 Creat [...] Gap 19 mmol/L eGFR 97 # Calc 28 eGFR Non-Afr. Burkinan 84 # Calc 29 CBC W/Automated Diff 06/30/2020 [place] [address] [phone] CBC W/Automated Diff (SEE NOTE) 30 WBC 8.5 10^3/uL 4.2 - 11.0 RBC [...] Lymph 9.8 % Low 25.0 - 40.0 [place] 34.8 % High 3.0 - 8.0 Eos 0.9 % 0.0 - 7.0 Baso 0.2 % 0.0 - 2.0 %Ig 2.2 % High 0.0 - 0.0 %NRBC 0.0 % 0.0 - 0.0 #Neut 4.40 10^3/uL 2.00 - 6.90 #Lymph 0.83 10^3/uL 0.60 - 3.40 #[place] 2.95 10^3/uL High 0.00 - 0.90 #Eos 0.08 10^3/uL 0.00 - 0.70 #Baso 0.02 10^3/uL 0.00 - 0.20 #Ig 0.19 10^3/uL High 0.00 - 0.10 #NRBC 0.00 10^3/uL 0.00 - 0.00 Manual Diff SEE BELOW Segs 33 % Low 37 - 80 Band 13 % High 0 - 5 %Lymph 15 % Low 25 - 40 %[place] 39 % High 3 - 8 RBC Morph MORPH IS NORMAL Carbohydrate Ag 19-9 (Serial) 06/29/2020 [facility] [place] CA 19-9 1079 U/mL High 0-35 31 PDF . Laboratory test finding 06/29/2020 [facility] Amylase 22 U/L Low 31-110 Lipase 16 U/L 13-78 1 See Pathology Report Specimen Collection for Pathology Reference Lab Testing. Refer to [facility] Pathology Report for Results:[id number] 2 See Pathology Report Specimen Collection for Pathology Reference Lab Testing. Refer to [facility] Pathology Report for Results: [id number] 3 Units are mL/min/1.73 m2 Chronic Kidney Disease Staging per NKF: Stage I & II GFR >=60 Normal to Mildly Decreased Stage III GFR 30-59 Moderately Decreased Stage IV GFR 15-29 Severely Decreased Stage V GFR <15 Very Little GFR Left ESRD GFR <15 on CIVIL SERVICE WORKER 4 THE CA 19-9 ASSAY IS PERFORM ED ON THE [employer] BY CHEMILUMINESCENCE AND SHOULD NOT BE COMPARED INTERCHANGEABLY WITH OTHER METHODS. IT SHOULD NOT BE USED ALONE A SCREENING TEST OR DIAGNOSIS FOR THE PRESENCE OR ABSENCE OF MALIGNANT DISEASE. PREDICTIONS OF DISEASE RECURRENCE SHOULD NOT BE BASED SOLELY ON VALUES OBTAINED FROM SERIAL PATIENT SERUM VALUES. 5 A Pathologist review of this differential can help in the evaluation of a differential diagnosis. Please order a Pathologist Review (PERISM) if deemed necessary. Results are subject to change if a Pathologist Review is performed. 6 Units are mL/min/1.73 m2 Chronic Kidney Disease Staging per NKF: Stage I & II GFR >=60 Normal to Mildly Decreased Stage III GFR 30-59 Moderately Decreased Stage IV GFR 15-29 Severely Decreased Stage V GFR <15 Very Little GFR Left ESRD GFR <15 on CIVIL SERVICE WORKER 7 DIAGNOSIS CRITERIA MMB ng/ml Relative Index (RI) NON-AMI < or = 5 N/A PRINCE ZONE > 5 < or = 4 AMI > 5 > 4 8 Troponin I Reference Interva l for Car reviews LOCI: 99th Percentile= 0.00-0.045 ng/ml Risk Stratification: <= 0.10 ng/ml Decreased Risk for Adverse Clinical Events. 0.10-1.50 ng/ml Increased Risk for Adv erse Clinical Events. Evaluation of additional criterion and/or repeat testing in 2-6 hours is suggested to rule out myocardial damage. >= 1.50 ng/ml Indicative of Myocardial Injury. 9 THERAPUTIC HUMAN INR VALUES INDICATIONS NORMAL RANGES PROPHYLAXIS/TREATMENT OF: VENOUS THROMBOSIS 2.0-3.0 PULMONARY EMBOLISM 2.0-3.0 PREVENTION OF SYSTEMIC EMBOLISM FROM: TISSUE HEART VALVES 2.0-3.0 ACUTE MYOCARDIAL INFARCTION 2.0-3.0 VALVULAR HEART DISEASE 2.0-3.0 ATRIAL FIBRILLATION 2.0-3.0 MECHANICAL VALVES(HIGH RISK) 2.5-3.5 RECURRENT MYOCARDIAL INFARCTION 2.5-3.5 10 Negative results do not prec lude influenza or RSV virus infection and should not be used as the sole basis for treatment or other patient management decisions. 11 Negative results do not prec lude influenza or RSV virus infection and should not be used as the sole basis for treatment or other patient management decisions. 12 Negative results do not prec lude influenza or RSV virus infection and should not be used as the sole basis for treatment or other patient management decisions. 13 A false negative result may occur if [...] pathogens. DISCLAIMER: Testing was performed using the [employer] SARS-CoV-2 test. This test was developed and its performance characteristics determined by [employer]. This test has not been FDA cleared [...] the authorization is terminated or revoked sooner. 14 Y/N query for Sepsis Lactate Rule: Y 15 ASSAY INFORMATION: Real Time RT-PCR NOTE: The COVID-19 assay has been cleared by the U.S. Food and Drug Administration under the Emergency Use Authorization (EUA). [employer] and [employer] are designated as high complexity laboratories by the Clinical Laboratory Improvement Amendments of 1988(CLIA) and are qualified to perform this test. Not Detected 16 A Pathologist review of this differential can help in the evaluation of a differential diagnosis. Please order a Pathologist Review (PERISM) if deemed necessary. Results are subject to change if a Pathologist Review is performed. 17 THE CA 19-9 ASSAY IS PERFORM ED ON THE [employer] BY CHEMILUMINESCENCE AND SHOULD NOT BE COMPARED INTERCHANGEABLY WITH OTHER METHODS. IT SHOULD NOT BE USED ALONE A SCREENING TEST OR DIAGNOSIS FOR THE PRESENCE OR ABSENCE OF MALIGNANT DISEASE. PREDICTIONS OF DISEASE RECURRENCE SHOULD NOT BE BASED SOLELY ON VALUES OBTAINED FROM SERIAL PATIENT SERUM VALUES. 18 Units are mL/min/1.73 m2 Chronic Kidney Disease Staging per NKF: Stage I & II GFR >=60 Normal to Mildly Decreased Stage III GFR 30-59 Moderately Decreased Stage IV GFR 15-29 Severely Decreased Stage V GFR <15 Very Little GFR Left ESRD GFR <15 on [employer]IVIL SERVICE WORKER 19 THE CA 19-9 ASSAY IS PERFORM ED ON THE [employer] BY CHEMILUMINESCENCE AND SHOULD NOT BE COMPARED INTERCHANGEABLY WITH OTHER METHODS. IT SHOULD NOT BE USED ALONE A SCREENING TEST OR DIAGNOSIS FOR THE PRESENCE OR ABSENCE OF MALIGNANT DISEASE. PREDICTIONS OF DISEASE RECURRENCE SHOULD NOT BE BASED SOLELY ON VALUES OBTAINED FROM SERIAL PATIENT SERUM VALUES. 20 A Pathologist review of this differential [...] Little GFR Left ESRD GFR <15 on [employer]IVIL SERV[employer] WORKER 22 CHRONIC KIDNEY DISEASE STAGI NG PER NKF: [...] ADOLESCENTS REPRESENTS INDIVIDUALA AGED 2-19 YEARS EXCLUSIVE. 23 CKD-EPI 24 CKD-EPI 25 A Pathologist review of this differential [...] Little GFR Left ESRD GFR <15 on [employer]IVIL SERVICE WORKER 27 NORMAL RANGES Age WBC RBC HGB HCT [...] HCT IS 5% LESS SOURCE FOR DATA: [employer] [place] 1800 OPERATION MANUAL( AUTOMATED BLOOD COUNTS AND [...] Normal 80 and above >32 mL/min Normal 28 CKD-EPI 29 CKD-EPI 30 COMPLETE BLOOD COUNT 31 [employer] Electroche miluminescence Immunoassay (ECLIA) Values obtained with different assay methods or kits cannot be used interchangeably. Results cannot be interpreted as absolute evidence of the presence or absence of malignant disease. Procedures Date Code Description Status 11/17/2020 21696 Office/Outpatient Established Mo d MDM 30-39 Min Completed 07/29/2020 82201 Office/Outpatient Established Mo d MDM 30-39 Min Completed 06/29/2020 84265 Office/Outpatient Established Mo d MDM 30-39 Min Completed Medical Devices Description No Information Available Encounters Type Date Location Provider Dx Diagnosis Office Visit 11/17/2020 11:15a [facility] Homero Sanchez M. D. C25.1 Malignant neoplasm of body of pancreas Z95.2 Presence of prosthetic heart valve Office Visit 07/29/2020 1:30p [facility] Homero Sanchez M. D. C25.1 Malignant neoplasm of body of pancreas Office Visit 06/29/2020 3:40p [facility] Homero Sanchez M. D. 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 09/04/2020 R73.01 Impaired fasting glucose Homero Da Silva M.D. 09/04/2020 R73.01 Impaired fasting [facility] 09/04/2020 E78.2 Mixed hyperlipidemia John Sanchez M.D. 09/04/2020 E78.2 Mixed hyperlipidemia [facility] Schedule 07/29/2020 C25.1 Malignant neoplasm of body of pa Homero Earl M.D. 06/29/2020 C25.1 Malignant neoplasm of body of pa Homero Earl M.D. Plan of Treatment No Information Available Functional Status Description No Information Available Mental Status Description No Information Available Referrals Refer to Reason for Referral Status Appt Date [facility] Oncology & Hematology pancreatic mass- eval and rx , MRCP and CA19-9 pending Sent 07/27/2020 [address] [place] [address]
--- OUTSIDE RECORDS SUMMARY | 2021-01-23 15:30 | CCD ---
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 ; Malignant neoplasm of pancreas, unspecified location of malignancy C25.9 and Leukocytosis, unspecified type D72.829 IMMUNIZATIONS No Information SOCIAL HISTORY Sex Assigned At : Social History Observation Description Sex Assigned At Unknown Education: Question Answer Notes Level of Education: Not Finished College Language: Question Answer Notes Languages spoken: [place] Island[place] Zoroastrianism: Question Answer Notes Zoroastrianism 08 Roman Catholic REASON FOR REFERRAL No Information VITAL SIGNS Weight 133 lbs Nov, Weight-kg 60.33 kg Nov, Height 5'9" in Nov, BMI 19.64 kg/m2 Nov, Heart Rate 94 /min Nov, Respiratory Rate 16 /min Nov, Temperature 97.9 degrees Fahrenheit Nov, Oximetry 100 Nov, Blood pressure systolic 124 mm Hg Nov, Blood pressure diastolic 72 mm Hg Nov, MEDICATIONS Medication SIG (Take, [...] Information RESULTS No Results REASON FOR VISIT [facility] Hospital Follow up MEDICAL (GENERAL) HISTORY Type Description Date Medical [...] Treatment Notes Treatm ent Clinical Notes Nov, MSSA (methicillin susceptibl e Staphylococcus aureus) (ICD-10 - A49.01) Patient has been on IV cefazolin for the past 3 weeks he will continue for total of 6 weeks with end of therapy scheduled for 12/05/2020 following which he will have surveillance blood cultures. He is scheduled to have a ESA to be done by Dr. Coronado to look at his TAVR make sure there is no dehiscence or vegeatations. We will call optum to see if IV cefazolin could be continuous infusions WBC elevated from reactive BM, CRP 0.5 ESR 25-28 09 Sep, 2021 Bacteremia (ICD-10 - R78.81) MSSA bacteremia 10/23negative 10/24/20 Nov, S/P TAVR (transcatheter aortic valve rep lacement) (ICD-10 - Z95.2) Infusaport placed at [facility] 09/2020, ESA to be scheduled soon Nov, Malignant neoplasm of pancre as, unspecified location of malignancy (ICD-10 - C25.9) Chemotherapy first treatment was on 10/12/2020 , [place] [address] 11/06/2020, chemotherapy on hold until he finishes IV antibiotic. The patient is scheduled for CT abdomen pelvis on 12/03/2020 Nov, Leukocytosis, unspecified type (ICD-10 - D72.829 ) Reactive BM PLAN OF TREATMENT Medication Medication Name Sig Start Date Stop Date Probiotic - as directed Orally ceFAZolin Sodium 2 GM/20ML as directed Intravenous q 8 Treatment Notes Assessment Notes Clinical Notes MSSA (methicillin susceptible Staphylococcus aureus) Patient has been on IV cefazolin for the past 3 weeks he will continue for total of 6 weeks with end of therapy scheduled for 12/05/2020 following which he will have surveillance blood cultures. He is scheduled to have a ESA to be done by Dr. Coronado to look at his TAVR make sure there is no dehiscence or vegeatations.We will call optum to see if IV cefazolin could be continuous infusionsWBC elevated from reactive BM, CRP 0.5 ESR 25-28 Bacteremia MSSA bacteremia 10/23 negative 10/24/20 S/P TAVR (transcatheter aortic valve replacement) Infusaport placed at [facility] 09/2020, ESA to be scheduled soon Malignant neoplasm of pancreas, unspecified location of maxine gnancy Chemotherapy first treatment was on 10/12/2020 , [place] [address] 11/06/2020, chemotherapy on hold until he finishes IV antibiotic. The patient is scheduled for CT abdomen pelvis on 12/03/2020 Leukocytosis, unspecified type Reactive BM Next Appt Details 3 Weeks Reason: Insurance Providers Payer Name Payer Address Payer Phone Insured Name Patient Relati onship to Insured Coverage Start Date Coverage End Date [facility] [address] [address] [facility] [phone] [employer] [facility] MEDICARE Part A and B [address] [facility] [id number] [phone] [employer] self
--- OUTSIDE RECORDS SUMMARY | 2021-01-23 15:30 | CCD | Continuity of Care Document ---
Author Author Trace HUTCHISON Organization Unknown Address [address] [place] [address] [place] [address] Phone [phone] Care Team Providers Care Stunt Man Name Role Phone Homero Sanchez MD AUTM [phone] Johnnie Wills D.P.M. AUTM [phone] Problems Description No Information Available Social History Type Date Description Comments Sex Unknown ETOH Use Currently consumes alcohol 1 dri nk weekly Tobacco Use Start: Unknown The patient has never vaped Tobacco Use Start: Unknown Patient has never smoked Smoking Status Reviewed: 11/29/20 Patient has never smoked Allergies, Adverse Reactions, Alerts Description No Known Drug Allergies Medications Active Medications SIG Qnty Indications Ordering Provide r Date Cefazolin In Sodium Chloride Unknown Heparin Lock Flush Unknown Aspirin 81 Low Dose Unknown Vitamin D Unknown Multivitamin Adult Unknown Immunizations Description No Information Available Vital Signs Date Vital Result Comment 11/29/2020 8:47am BP Systolic 156 mmHg BP Diastolic 65 mmHg Heart Rate 88 /min Respiratory Rate 20 /min O2 % BldC Oximetry 98 % Body Temperature 97.1 F Weight 135.00 lb Height 69 inches 5'9" BMI (Body Mass Index) 19.9 kg/m2 Pain Level 8 Results Description No Information Available Procedures Date Code Description Status 11/29/2020 02963 Office/Outpatient New Low [facility] 30 -44 Minutes Completed Medical Devices Description No Information Available Encounters Type Date Location Provider Dx Diagnosis Office Visit 11/29/2020 8:40a Main Office EARL Gleason M79.67 1 Pain in right foot Assessments Date Code Description Provider 11/29/2020 M79.671 Pain in right foot EARL Sams Plan of Treatment 11/29/2020 - EARL Gleason* M79.671 Pain in right foot* Comments:* Pain localized to posterior right heel, concern for bone spur, tendonitis.Patient was given order for calcaneous xray of right foot- and pt will return on 11/30 to have done at this [facility] outpatient facility.Will advise of results when available.Rest, ice and elevation.OTC tylenol per package instruction.Will refer to Dr. Wills.Patient and verbalized understanding and was agreeable to plan. * All * Referral:* Johnnie Wills D.P.M., Taping Supervisor Functional Status Description No Information Available Mental Status Description No Information Available Referrals Refer to Reason for Referral Status Appt Date Johnnie Wills D.P.M. acute onset Localized right heel pain, swelling and erythema- suspect bone spur. No responding to conservative treatment. Created [facility] [address] [place] [address] [phone]
--- OUTSIDE RECORDS SUMMARY | 2021-01-23 15:30 | CCD | Continuity of Care Document ---
Author Author Trace SANCHEZ M.D. Organization Unknown Address [address] [address] Phone [phone] Care Team Providers Care Industrial Relations Specialist Name Role Phone Neftali Malik Kasandra RUST [phone] Problems Active Problems Provider Date Urolith Homero [...] CPT Code Status Date Vaccine Lot # [id number] Given 07/29/2015 Prevnar 13 Pneum o. Conj Ped. Vaccine 13 Valent (PCV13) For Im Use 52434 Given 07/24/2014 Zoster (Shingles) Vaccine 18633 Refused 02/22/2019 Influenza Virus Vaccine, Quadrivalent, Slit Virus, Im Use 3Y & Up 02150 Refused 02/13/2018 Influenza Virus Vaccine, Quadrivalent, Slit Virus, Im Use 3Y & Up 02636 Refused 02/03/2016 Influenza Virus Vaccine, Quadrivalent, Slit Virus, Im Use 3Y & Up Vital Signs Date Vital Result Comment 11/17/2020 11:02am BP Systolic 118 mmHg BP Diastolic 72 mmHg Body Temperature 98.1 F Heart Rate 76 /min Respiratory Rate 12 /min Height 68 inches 5'8" Weight 132.00 lb [place] Body Weight 154 lb BMI (Body Mass Index) 20.1 kg/m2 O2 % BldC Oximetry 94 % 07/29/2020 2:17pm BP Systolic 120 mmHg BP Diastolic 78 mmHg Body Temperature 97.9 F Heart Rate 50 /min Respiratory Rate 14 /min Height 68 inches 5'8" Weight 140.00 lb [place] Body Weight 154 lb BMI (Body Mass Index) 21.3 kg/m2 O2 % BldC Oximetry 95 % Results Test Acquired Date Facility Test Result H/L Range Note Comprehensive Metabolic Profil 12/10/2020 [facility] (Interface) [phone] Glucose, Fasting 129 mg/dL High 70-100 Blood [...] Ratio 1.3 Normal Laboratory test finding 12/10/2020 [facility] (Interface) [phone] Ca19-9 Tumor Marker,Carbohydra 64191.8 U/ML High <35.0 2 CBC With Auto Differential OB 12/10/2020 [facility]) [phone] White Blood Count 10.7 10 High 4.0-10.0 [...] 36.0-66.0 Lymph % 7.0 % Low 24.0-44.0 Ford % 33.2 % High 2.0-8.0 Eos % 0.8 % Normal 0.0-3.0 Baso % 0.4 % Normal 0.0-1.0 Immature Granulocyte % 4.3 % High 0-3.0 Nucleated Red Blood Cell % 0.0 % Normal 0-0 Neutrophils # 5.8 10 Normal 1.5-8.5 Lymph # 0.8 10 Low 1.5-5.0 Ford # 3.5 10 High 0.0-0.8 Eos # 0.1 10 Normal 0.0-0.5 Baso # 0.0 10 Normal 0.0-0.2 Laboratory test finding 11/10/2020 [facility] ([facility]) [phone] Cytogenetics Fish For Path So See Pathology Re < SEE NOTE> Normal 3 BCR/Abl Screen For CML Path So See Pathology Re <SEE NOTE> Normal 4 CBC With Auto Differential OB 11/06/2020 [facility]) [phone] White Blood Count 38.5 10 Critical high [...] 36.0-66.0 Lymph % 4.1 % Low 24.0-44.0 Ford % 21.0 % High 2.0-8.0 Eos % 0.1 % Normal 0.0-3.0 Baso % 0.7 % Normal 0.0-1.0 Immature Granulocyte % 11.4 % High 0-3.0 Nucleated Red Blood Cell % 0.0 % Normal 0-0 Neutrophils # 24.2 10 High 1.5-8.5 Lymph # 1.6 10 Normal 1.5-5.0 Ford # 8.1 10 High 0.0-0.8 Eos # 0.0 10 Normal 0.0-0.5 Baso # 0.3 10 High 0.0-0.2 Comprehensive Metabolic Profil 11/06/2020 [facility] ([facility]) [phone] Glucose, Fasting 133 mg/dL High 70-100 Blood Urea Nitrogen 16 mg/dL Normal 7-18 Creatinine For GFR 0.71 mg/dL Normal 0.70-1.30 Glomerular Filtration Rate > 60.0 Normal >35 5 Sodium Level 139 mEq/L Normal 136-145 [...] Ratio 1.0 Normal Laboratory test finding 11/06/2020 [facility] (Interface) [phone] Ca19-9 Tumor Marker,Carbohydra 6514.9 U/ML High <35.0 6 Istat Chem8+ Panel 10/23/2020 [facility]) [phone] iSTAT HCT 40.0 % Normal 38.0-51.0 iSTAT Glucose 232 mg/dL High 70-105 iSTAT Sodium 136 mEq/L Normal 136-145 iSTAT Potassium 3.6 mEq/L Normal 3.5-5.1 iSTAT CA++ 4.4 mg/dL Low 4.5-5.3 iSTAT Chloride 98 mEq/L Normal 98-109 iSTAT Co2 20.0 MM/L Low 23.0-27.0 iSTAT BUN 15 mg/dL Normal 8-26 iSTAT Creatinine 0.9 mg/dL Normal 0.6-1.3 Laboratory test finding 10/23/2020 [facility] ([facility]) [phone] Platelet Estimate DECREASED Normal Normal Immature Platelet Fraction 7.1 % Normal 0.0-10.91 Differential 10/23/2020 [facility]) [phone] Neutrophils 84 % High 28-66 Bands 6 % Normal < 11 Lymphocytes 2 % Low 16-44 Monocytes 8 % High 0-5 RBC Morphology NORMAL Normal CBC With Differential 10/23/2020 [facility]) [phone] White Blood Count 23.5 10 High 4.0-10.0 7 Red Blood Count 4.14 10 Low 4.30-6.10 [...] % High 0-0 Laboratory test finding 10/23/2020 [facility] ([facility]) [phone] NT-Pro BNP 2080 pg/mL High <450 Basic Metabolic Profile 10/23/2020 [facility] ([facility]) [phone] Glucose, Fasting 215 mg/dL High 70-100 Blood Urea Nitrogen 15 mg/dL Normal 7-18 Creatinine For GFR 1.13 mg/dL Normal 0.70-1.30 Glomerular Filtration Rate > 60.0 Normal >35 8 Sodium Level 137 mEq/L Normal 136-145 Potassium Serum 3.6 mEq/L Normal 3.5-5.1 Chloride Level 102 mEq/L Normal 98-107 Carbon Dioxide Level 24 mEq/L Normal 21-32 Anion Gap 11 mEq/L Normal 8-16 Calcium Level 8.7 mg/dL Low 8.8-10.2 Cardiac Marker Panel 10/23/2020 [facility] ( Interface) [phone] CPK Creatine Phosphokinase 24 U/L Low 39-30 8 CK-MB Value Mass < 1.0 NG/ML Normal <3.6 MB/CK Relative Index 4.17 High < Or =4 9 Troponin I 0.15 NG/ML High < 0.10 10 Laboratory test finding 10/23/2020 [facility] (Interface) [phone] Partial Thromboplastin Time 30.9 seconds Normal 25 .9-37.0 Prothrombin Time/Inr 10/23/2020 [facility] ( Interface) [phone] Prothrombin Time 15.9 seconds High 12.7-14.5 Inr 1.23 Normal 11 Influenxa A/B RSV Covid Amp 10/23/2020 [facility] (Interface) [phone] Influenza A Amplification NEGATIVE Normal Negati ve 12 Influenza B Amplification NEGATIVE Normal Negative 13 RSV Amplification NEGATIVE Normal Negative 14 Sars Covid-19 Amplification NEGATIVE Normal Negative 15 Laboratory test finding 10/23/2020 [facility] (Interface) [phone] Lactic Acid Sepsis Protocol 3.0 mmol/L Critical high 0 .4-2.0 16 Liver Profile 10/23/2020 [facility] (I nterface) [phone] Ast/Sgot 13 U/L Normal 7-37 Alt/SGPT 17 U/L Normal 12-78 Alkaline Phosphatase 132 U/L High 45-117 Bilirubin,Total 0.9 mg/dL Normal 0.2-1.0 Bilirubin,Direct 0.4 mg/dL High 0.0-0.2 Total Protein 5.9 GM/DL Low 6.4-8.2 Albumin 3.3 GM/DL Normal 3.2-5.2 Albumin/Globulin Ratio 1.3 Normal Coronavirus 2019 Nasopharygeal 10/15/2020 [facility]) [phone] Coronavirus 2019 Nasopharygeal ASSAY INFORMATIO <SEE N OTE> 17 CBC With Auto Differential OB 10/08/2020 [facility]) [phone] White Blood Count 9.8 10 Normal 4.0-10.0 18 Red Blood Count 4.82 10 Normal 4.30-6.10 [...] 36.0-66.0 Lymph % 8.1 % Low 24.0-44.0 Ford % 34.9 % High 2.0-8.0 Eos % 1.0 % Normal 0.0-3.0 Baso % 0.3 % Normal 0.0-1.0 Immature Granulocyte % 2.5 % Normal 0-3.0 Nucleated Red Blood Cell % 0.0 % Normal 0-0 Neutrophils # 5.2 10 Normal 1.5-8.5 Lymph # 0.8 10 Low 1.5-5.0 Ford # 3.4 10 High 0.0-0.8 Eos # 0.1 10 Normal 0.0-0.5 Baso # 0.0 10 Normal 0.0-0.2 Comprehensive Metabolic Profil 10/08/2020 [facility]) [phone] Glucose, Fasting 131 mg/dL High 70-100 Blood Urea Nitrogen 15 mg/dL Normal 7-18 Creatinine For GFR 0.73 mg/dL Normal 0.70-1.30 Glomerular Filtration Rate > 60.0 Normal >35 1 9 Sodium Level 139 mEq/L Normal 136-145 [...] Ratio 1.8 Normal Laboratory test finding 10/08/2020 [facility] ([facility]) [phone] Ca19-9 Tumor Marker,Carbohydra 6310.2 U/ML High <35.0 20 Laboratory test finding 09/25/2020 [facility] ([facility]) [phone] Ca19-9 Tumor Marker,Carbohydra 5746.2 U/ML High <35.0 21 Comprehensive Metabolic Profil 09/18/2020 [facility] ([facility]) [phone] Glucose, Fasting 120 mg/dL High 70-100 Blood Urea Nitrogen 13 mg/dL Normal 7-18 Creatinine For GFR 0.74 mg/dL Normal 0.70-1.30 Glomerular Filtration Rate > 60.0 Normal >35 2 2 Sodium Level 140 mEq/L Normal 136-145 Potassium [...] Normal CBC With Auto Differential OB 09/18/2020 [facility] ([facility]) [phone] White Blood Count 8.0 10 Normal 4.0-10.0 23 Red Blood Count 4.52 10 Normal 4.30-6.10 [...] 36.0-66.0 Lymph % 10.8 % Low 24.0-44.0 Ford % 37.8 % High 2.0-8.0 Eos % 1.8 % Normal 0.0-3.0 Baso % 0.3 % Normal 0.0-1.0 Immature Granulocyte % 2.3 % Normal 0-3.0 Nucleated Red Blood Cell % 0.0 % Normal 0-0 Neutrophils # 3.8 10 Normal 1.5-8.5 Lymph # 0.9 10 Low 1.5-5.0 Ford # 3.0 10 High 0.0-0.8 Eos # 0.1 10 Normal 0.0-0.5 Baso # 0.0 10 Normal 0.0-0.2 Laboratory test finding 09/04/2020 [facility] Hemoglobin A1c 6.1 % 4.50-6.20 CMP 09/04/2020 [facility] Glu 128 mg/dL High 70 - 110 24 BUN 16 mg/dL 8 - 23 Creat [...] Gap 16 mmol/L eGFR 103 # Calc 25 eGFR Non-Afr. Malagasy 89 # Calc 26 Lipid Panel 09/04/2020 [facility] Chol 171 mg/dL 0 - 200 Trig 58 mg/dL 35 - 200 HDL 53 mg/dL 35 - 55 LDL_C 106 Calc 75 - 129 Cho/HDL Ratio 3.2 CALC CBC With Auto Differential OB 08/31/2020 [facility] (Interface) [phone] White Blood Count 9.6 10 Normal 4.0-10.0 27 Red Blood Count 4.52 10 Normal 4.30-6.10 [...] 36.0-66.0 Lymph % 6.8 % Low 24.0-44.0 Ford % 37.0 % High 2.0-8.0 Eos % 0.8 % Normal 0.0-3.0 Baso % 0.2 % Normal 0.0-1.0 Immature Granulocyte % 1.6 % Normal 0-3.0 Nucleated Red Blood Cell % 0.0 % Normal 0-0 Neutrophils # 5.2 10 Normal 1.5-8.5 Lymph # 0.7 10 Low 1.5-5.0 Ford # 3.6 10 High 0.0-0.8 Eos # 0.1 10 Normal 0.0-0.5 Baso # 0.0 10 Normal 0.0-0.2 Comprehensive Metabolic Profil 08/31/2020 [facility] ([facility]) [phone] Glucose, Fasting 136 mg/dL High 70-100 Blood Urea Nitrogen 18 mg/dL Normal 7-18 Creatinine For GFR 0.86 mg/dL Normal 0.70-1.30 Glomerular Filtration Rate > 60.0 Normal >35 2 8 Sodium Level 139 mEq/L Normal 136-145 [...] Glu 147 mg/dL High 70 - 110 29 BUN 14 mg/dL 8 - 23 Creat [...] Gap 19 mmol/L eGFR 97 # Calc 30 eGFR Non-Afr. Malagasy 84 # Calc 31 CBC W/Automated Diff 06/30/2020 [place] [address] [phone] CBC W/Automated Diff (SEE NOTE) 32 WBC 8.5 10^3/uL 4.2 - 11.0 RBC [...] Lymph 9.8 % Low 25.0 - 40.0 Ford 34.8 % High 3.0 - 8.0 Eos 0.9 % 0.0 - 7.0 Baso 0.2 % 0.0 - 2.0 %Ig 2.2 % High 0.0 - 0.0 %NRBC 0.0 % 0.0 - 0.0 #Neut 4.40 10^3/uL 2.00 - 6.90 #Lymph 0.83 10^3/uL 0.60 - 3.40 #Ford 2.95 10^3/uL High 0.00 - 0.90 #Eos 0.08 10^3/uL 0.00 - 0.70 #Baso 0.02 10^3/uL 0.00 - 0.20 #Ig 0.19 10^3/uL High 0.00 - 0.10 #NRBC 0.00 10^3/uL 0.00 - 0.00 Manual Diff SEE BELOW Segs 33 % Low 37 - 80 Band 13 % High 0 - 5 %Lymph 15 % Low 25 - 40 %Ford 39 % High 3 - 8 RBC Morph MORPH IS NORMAL Carbohydrate Ag 19-9 (Serial) 06/29/2020 [facility] [place] CA 19-9 1079 U/mL High 0-35 33 PDF . Laboratory test finding 06/29/2020 [facility] [place] Amylase 22 U/L Low 31-110 Lipase 16 U/L 13-78 1 Units are mL/min/1.73 m2 Chronic Kidney Disease Staging per NKF: Stage I & II GFR >=60 Normal to Mildly Decreased Stage III GFR 30-59 Moderately Decreased Stage IV GFR 15-29 Severely Decreased Stage V GFR <15 Very Little GFR Left ESRD GFR <15 on INTERNAL GRINDER SET UP OPERATOR 2 THE CA 19-9 ASSAY IS PERFORM ED ON THE Moon[place] BY CHEMILUMINESCENCE AND SHOULD NOT BE COMPARED INTERCHANGEABLY WITH OTHER METHODS. IT SHOULD NOT BE USED ALONE A SCREENING TEST OR DIAGNOSIS FOR THE PRESENCE OR ABSENCE OF MALIGNANT DISEASE. PREDICTIONS OF DISEASE RECURRENCE SHOULD NOT BE BASED SOLELY ON VALUES OBTAINED FROM SERIAL PATIENT SERUM VALUES. 3 See Pathology Report Specimen Collection for Pathology Reference Lab Testing. Refer to [facility] Pathology Report for Results:[id number] 4 See Pathology Report Specimen Collection for Pathology Reference Lab Testing. Refer to [facility] Pathology Report for Results: [id number] 5 Units are mL/min/1.73 m2 Chronic Kidney Disease Staging per NKF: Stage I & II GFR >=60 Normal to Mildly Decreased Stage III GFR 30-59 Moderately Decreased Stage IV GFR 15-29 Severely Decreased Stage V GFR <15 Very Little GFR Left ESRD GFR <15 on INTERNAL GRINDER SET UP OPERATOR 6 THE CA 19-9 ASSAY IS PERFORM ED ON THE Moon[place] BY CHEMILUMINESCENCE AND SHOULD NOT BE COMPARED INTERCHANGEABLY WITH OTHER METHODS. IT SHOULD NOT BE USED ALONE A SCREENING TEST OR DIAGNOSIS FOR THE PRESENCE OR ABSENCE OF MALIGNANT DISEASE. PREDICTIONS OF DISEASE RECURRENCE SHOULD NOT BE BASED SOLELY ON VALUES OBTAINED FROM SERIAL PATIENT SERUM VALUES. 7 A Pathologist review of this differential can help in the evaluation of a differential diagnosis. Please order a Pathologist Review (PERISM) if deemed necessary. Results are subject to change if a Pathologist Review is performed. 8 Units are mL/min/1.73 m2 Chronic Kidney Disease Staging per NKF: Stage I & II GFR >=60 Normal to Mildly Decreased Stage III GFR 30-59 Moderately Decreased Stage IV GFR 15-29 Severely Decreased Stage V GFR <15 Very Little GFR Left ESRD GFR <15 on INTERNAL GRINDER SET UP OPERATOR 9 DIAGNOSIS CRITERIA MMB ng/ml Relative Index (RI) NON-AMI < or = 5 N/A PRINCE ZONE > 5 < or = 4 AMI > 5 > 4 10 Troponin I Reference Interva l for Siemens Power Liens LOCI: 99th Percentile= 0.00-0.045 ng/ml Risk Stratification: <= 0.10 ng/ml Decreased Risk for Adverse Clinical Events. 0.10-1.50 ng/ml Increased Risk for Adv erse Clinical Events. Evaluation of additional criterion and/or repeat testing in 2-6 hours is suggested to rule out myocardial damage. >= 1.50 ng/ml Indicative of Myocardial Injury. 11 THERAPUTIC HUMAN INR VALUES INDICATIONS NORMAL RANGES PROPHYLAXIS/TREATMENT OF: VENOUS THROMBOSIS 2.0-3.0 PULMONARY EMBOLISM 2.0-3.0 PREVENTION OF SYSTEMIC EMBOLISM FROM: TISSUE HEART VALVES 2.0-3.0 ACUTE MYOCARDIAL INFARCTION 2.0-3.0 VALVULAR HEART DISEASE 2.0-3.0 ATRIAL FIBRILLATION 2.0-3.0 MECHANICAL VALVES(HIGH RISK) 2.5-3.5 RECURRENT MYOCARDIAL INFARCTION 2.5-3.5 12 Negative results do not prec lude influenza or RSV virus infection and should not be used as the sole basis for treatment or other patient management decisions. 13 Negative results do not prec lude influenza or RSV virus infection and should not be used as the sole basis for treatment or other patient management decisions. 14 Negative results do not prec lude influenza or RSV virus infection and should not be used as the sole basis for treatment or other patient management decisions. 15 A false negative result may occur if [...] pathogens. DISCLAIMER: Testing was performed using the [employer] SARS-CoV-2 test. This test was developed and its performance characteristics determined by [employer]. This test has not been FDA cleared [...] the authorization is terminated or revoked sooner. 16 Y/N query for Sepsis Lactate Rule: Y 17 ASSAY INFORMATION: Real Time RT-PCR NOTE: The COVID-19 assay has been cleared by the U.S. Food and Drug Administration under the Emergency Use Authorization (EUA). [employer] and [facility] are designated as high complexity laboratories by the Clinical Laboratory Improvement Amendments of 1988(CLIA) and are qualified to perform this test. Not Detected 18 A Pathologist review of this differential can help in the evaluation of a differential diagnosis. Please order a Pathologist Review (PERISM) if deemed necessary. Results are subject to change if a Pathologist Review is performed. 19 Units are mL/min/1.73 m2 Chronic Kidney Disease Staging per NKF: Stage I & II GFR >=60 Normal to Mildly Decreased Stage III GFR 30-59 Moderately Decreased Stage IV GFR 15-29 Severely Decreased Stage V GFR <15 Very Little GFR Left ESRD GFR <15 on INTERNAL GRINDER SET UP OPERATOR 20 THE CA 19-9 ASSAY IS PERFORM ED ON THE [place] BY CHEMILUMINESCENCE AND SHOULD NOT BE COMPARED INTERCHANGEABLY WITH OTHER METHODS. IT SHOULD NOT BE USED ALONE A SCREENING TEST OR DIAGNOSIS FOR THE PRESENCE OR ABSENCE OF MALIGNANT DISEASE. PREDICTIONS OF DISEASE RECURRENCE SHOULD NOT BE BASED SOLELY ON VALUES OBTAINED FROM SERIAL PATIENT SERUM VALUES. 21 THE CA 19-9 ASSAY IS PERFORM ED ON THE [place] BY CHEMILUMINESCENCE AND SHOULD NOT BE COMPARED [...] Little GFR Left ESRD GFR <15 on INTERNAL GRINDER SET UP OPERATOR 23 A Pathologist review of this differential can help in the evaluation of a differential diagnosis. Please order a Pathologist Review (PERISM) if deemed necessary. Results are subject to change if a Pathologist Review is performed. 24 CHRONIC KIDNEY DISEASE STAGI NG PER NKF: [...] ADOLESCENTS REPRESENTS INDIVIDUALA AGED 2-19 YEARS EXCLUSIVE. 25 CKD-EPI 26 CKD-EPI 27 A Pathologist review of this differential can help in the evaluation of a differential diagnosis. Please order a Pathologist Review (PERISM) if deemed necessary. Results are subject to change if a Pathologist Review is performed. 28 Units are mL/min/1.73 m2 Chronic Kidney Disease Staging per NKF: Stage I & II GFR >=60 Normal to Mildly Decreased Stage III GFR 30-59 Moderately Decreased Stage IV GFR 15-29 Severely Decreased Stage V GFR <15 Very Little GFR Left ESRD GFR <15 on INTERNAL GRINDER SET UP OPERATOR 29 NORMAL RANGES Age WBC RBC HGB HCT [...] HCT IS 5% LESS SOURCE FOR DATA: [employer] 1800 OPERATION MANUAL( AUTOMATED BLOOD COUNTS AND [...] Normal 80 and above >32 mL/min Normal 30 CKD-EPI 31 CKD-EPI 32 COMPLETE BLOOD COUNT 33 [employer] Electroche miluminescence Immunoassay (ECLIA) Values obtained with different assay methods or kits cannot be used interchangeably. Results cannot be interpreted as absolute evidence of the presence or absence of malignant disease. Procedures Date Code Description Status 11/17/2020 44324 Office/Outpatient Established Mo d MDM 30-39 Min Completed 07/29/2020 65623 Office/Outpatient Established Mo d MDM 30-39 Min Completed 06/29/2020 36070 Office/Outpatient Established Mo d MDM 30-39 Min Completed Medical Devices Description No Information Available Encounters Type Date Location Provider Dx Diagnosis Office Visit 11/17/2020 11:15a [facility] Homero Sanchez M. D. 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 D. C25.1 Malignant neoplasm of body of pancreas Office Visit 06/29/2020 3:40p [facility] Homero Sanchez M. D. 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 09/04/2020 R73.01 Impaired fasting glucose Homero Da Silva M.D. 09/04/2020 R73.01 Impaired fasting glucose [facility] Schedule 09/04/2020 E78.2 Mixed hyperlipidemia John Sanchez M.D. 09/04/2020 E78.2 Mixed hyperlipidemia [facility] Schedule 07/29/2020 C25.1 Malignant neoplasm of body of pa Homero Earl M.D. 06/29/2020 C25.1 Malignant neoplasm of body of pa Homero Earl M.D. Plan of Treatment No Information Available Functional Status Description No Information Available Mental Status Description No Information Available Referrals Refer to Dr Reason for Referral Status Appt Date [facility] Oncology & Hematology pancreatic mass- eval and rx , MRCP and CA19-9 pending Sent 07/27/2020 [address] [place] [address]
--- OUTSIDE RECORDS SUMMARY | 2021-01-23 15:30 | CCD | Continuity of Care Document ---
Author Author Trace HUTCHISON [place] Organization Unknown Address [address] [place] [address] Phone [phone] Care Team Providers Care Home Visit Field Care Manager Name Role Phone Homero Sanchez MD AUT [phone] Problems Description No Information Available Social History [...] 8 Results Description No Information Available Procedures Description No Information Available Medical Devices Description No Information Available Encounters Description No Information Available Assessments Description No Information Available Plan of Treatment No Information Available Functional Status Description No Information Available Mental Status Description No Information Available Referrals Description No Information Available
--- OUTSIDE RECORDS SUMMARY | 2021-01-23 15:30 | CCD | Continuity of Care Document ---
Author Author Trace SANCHEZ M.D. 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 Conj Ped. Vaccine 13 Valent (PCV13) For Im Use 84898 Given 07/24/2014 Zoster (Shingles) Vaccine 04873 Refused 02/22/2019 Influenza Virus Vaccine, Quadrivalent, Slit Virus, Im Use 3Y & Up 18002 Refused 02/13/2018 Influenza Virus Vaccine, Quadrivalent, Slit Virus, Im Use 3Y & Up 39902 Refused 02/03/2016 Influenza Virus Vaccine, Quadrivalent, Slit Virus, Im Use 3Y & Up Vital Signs Date Vital Result Comment 11/17/2020 11:02am BP Systolic 118 mmHg BP Diastolic 72 mmHg Body Temperature 98.1 F Heart Rate 76 /min Respiratory Rate 12 /min Height 68 inches 5'8" Weight 132.00 lb [facility] Body Weight 154 lb BMI (Body Mass Index) 20.1 kg/m2 O2 % BldC Oximetry 94 % 07/29/2020 2:17pm BP Systolic 120 mmHg BP Diastolic 78 mmHg Body Temperature 97.9 F Heart Rate 50 /min Respiratory Rate 14 /min Height 68 inches 5'8" Weight 140.00 lb [facility] Body Weight 154 lb BMI (Body Mass Index) 21.3 kg/m2 O2 % BldC Oximetry 95 % Results Test Acquired Date Facility Test Result H/L Range Note Comprehensive Metabolic Profil 12/10/2020 [facility] (Interface) [phone] Glucose, Fasting 129 mg/dL High 70-100 Blood [...] Normal CBC With Auto Differential OB 12/10/2020 [facility] (Interface) [phone] White Blood Count 10.7 10 High 4.0-10.0 [...] 36.0-66.0 Lymph % 7.0 % Low 24.0-44.0 Jackson % 33.2 % High 2.0-8.0 Eos % 0.8 % Normal 0.0-3.0 Baso % 0.4 % Normal 0.0-1.0 Immature Granulocyte % 4.3 % High 0-3.0 Nucleated Red Blood Cell % 0.0 % Normal 0-0 Neutrophils # 5.8 10 Normal 1.5-8.5 Lymph # 0.8 10 Low 1.5-5.0 Jackson # 3.5 10 High 0.0-0.8 Eos # 0.1 10 Normal 0.0-0.5 Baso # 0.0 10 Normal 0.0-0.2 Laboratory test finding 11/10/2020 [facility] (Interface) [phone] Cytogenetics Fish For Path So See Pathology Re < SEE NOTE> Normal 2 BCR/Abl Screen For CML Path So See Pathology Re <SEE NOTE> Normal 3 CBC With Auto Differential OB 11/06/2020 [facility] (Interface) [phone] White Blood Count 38.5 10 Critical high [...] 36.0-66.0 Lymph % 4.1 % Low 24.0-44.0 Jackson % 21.0 % High 2.0-8.0 Eos % 0.1 % Normal 0.0-3.0 Baso % 0.7 % Normal 0.0-1.0 Immature Granulocyte % 11.4 % High 0-3.0 Nucleated Red Blood Cell % 0.0 % Normal 0-0 Neutrophils # 24.2 10 High 1.5-8.5 Lymph # 1.6 10 Normal 1.5-5.0 Jackson # 8.1 10 High 0.0-0.8 Eos # 0.0 10 Normal 0.0-0.5 Baso # 0.3 10 High 0.0-0.2 Comprehensive Metabolic Profil 11/06/2020 [facility] (Interface) [phone] Glucose, Fasting 133 mg/dL High 70-100 Blood Urea Nitrogen 16 mg/dL Normal 7-18 Creatinine For GFR 0.71 mg/dL Normal 0.70-1.30 Glomerular Filtration Rate > 60.0 Normal >35 4 Sodium Level 139 mEq/L Normal 136-145 [...] Ratio 1.0 Normal Laboratory test finding 11/06/2020 [facility] (Interface) [phone] Ca19-9 Tumor Marker,Carbohydra 6514.9 U/ML High <35.0 5 Cardiac Marker Panel 10/23/2020 [facility]) [phone] CPK Creatine Phosphokinase 24 U/L Low 39-30 8 CK-MB Value Mass < 1.0 NG/ML Normal <3.6 MB/CK Relative Index 4.17 High < Or =4 6 Troponin I 0.15 NG/ML High < 0.10 7 Istat Chem8+ Panel 10/23/2020 [facility]) [phone] iSTAT HCT 40.0 % Normal 38.0-51.0 iSTAT Glucose 232 mg/dL High 70-105 iSTAT Sodium 136 mEq/L Normal 136-145 iSTAT Potassium 3.6 mEq/L Normal 3.5-5.1 iSTAT CA++ 4.4 mg/dL Low 4.5-5.3 iSTAT Chloride 98 mEq/L Normal 98-109 iSTAT Co2 20.0 MM/L Low 23.0-27.0 iSTAT BUN 15 mg/dL Normal 8-26 iSTAT Creatinine 0.9 mg/dL Normal 0.6-1.3 Laboratory test finding 10/23/2020 [facility] ([facility]) [phone] Platelet Estimate DECREASED Normal Normal Immature Platelet Fraction 7.1 % Normal 0.0-10.91 Differential 10/23/2020 [facility]) [phone] Neutrophils 84 % High 28-66 Bands 6 % Normal < 11 Lymphocytes 2 % Low 16-44 Monocytes 8 % High 0-5 RBC Morphology NORMAL Normal CBC With Differential 10/23/2020 [facility]) [phone] White Blood Count 23.5 10 High 4.0-10.0 8 Red Blood Count 4.14 10 Low 4.30-6.10 [...] % High 0-0 Laboratory test finding 10/23/2020 [facility] (Interface) [phone] NT-Pro BNP 2080 pg/mL High <450 Basic Metabolic Profile 10/23/2020 [facility] (Interface) [phone] Glucose, Fasting 215 mg/dL High 70-100 Blood Urea Nitrogen 15 mg/dL Normal 7-18 Creatinine For GFR 1.13 mg/dL Normal 0.70-1.30 Glomerular Filtration Rate > 60.0 Normal >35 9 Sodium Level 137 mEq/L Normal 136-145 Potassium Serum 3.6 mEq/L Normal 3.5-5.1 Chloride Level 102 mEq/L Normal 98-107 Carbon Dioxide Level 24 mEq/L Normal 21-32 Anion Gap 11 mEq/L Normal 8-16 Calcium Level 8.7 mg/dL Low 8.8-10.2 Liver Profile 10/23/2020 [facility] ([facility]terface) [phone] Ast/Sgot 13 U/L Normal 7-37 Alt/SGPT 17 U/L Normal 12-78 Alkaline Phosphatase 132 U/L High 45-117 Bilirubin,Total 0.9 mg/dL Normal 0.2-1.0 Bilirubin,Direct 0.4 mg/dL High 0.0-0.2 Total Protein 5.9 GM/DL Low 6.4-8.2 Albumin 3.3 GM/DL Normal 3.2-5.2 Albumin/Globulin Ratio 1.3 Normal Laboratory test finding 10/23/2020 [facility] (Interface) [phone] Partial Thromboplastin Time 30.9 seconds Normal 25 .9-37.0 Prothrombin Time/Inr 10/23/2020 [facility] ( Interface) [phone] Prothrombin Time 15.9 seconds High 12.7-14.5 Inr 1.23 Normal 10 Influenxa A/B RSV Covid Amp 10/23/2020 [facility] (Interface) [phone] Influenza A Amplification NEGATIVE Normal Negati ve 11 Influenza B Amplification NEGATIVE Normal Negative 12 RSV Amplification NEGATIVE Normal Negative 13 Sars Covid-19 Amplification NEGATIVE Normal Negative 14 Laboratory test finding 10/23/2020 [facility] ([facility]) [phone] Lactic Acid Sepsis Protocol 3.0 mmol/L Critical high 0 .4-2.0 15 Coronavirus 2019 Nasopharygeal 10/15/2020 [facility] [phone] Coronavirus 2019 Nasopharygeal ASSAY INFORMATIO <SEE N OTE> 16 Comprehensive Metabolic Profil 10/08/2020 [facility]) [phone] Glucose, Fasting 131 mg/dL High 70-100 Blood Urea Nitrogen 15 mg/dL Normal 7-18 Creatinine For GFR 0.73 mg/dL Normal 0.70-1.30 Glomerular Filtration Rate > 60.0 Normal >35 1 7 Sodium Level 139 mEq/L Normal 136-145 [...] Ratio 1.8 Normal Laboratory test finding 10/08/2020 [facility] ([facility]) [phone] Ca19-9 Tumor Marker,Carbohydra 6310.2 U/ML High <35.0 18 CBC With Auto Differential OB 10/08/2020 [facility]) [phone] White Blood Count 9.8 10 Normal 4.0-10.0 19 Red Blood Count 4.82 10 Normal 4.30-6.10 [...] 36.0-66.0 Lymph % 8.1 % Low 24.0-44.0 Jackson % 34.9 % High 2.0-8.0 Eos % 1.0 % Normal 0.0-3.0 Baso % 0.3 % Normal 0.0-1.0 Immature Granulocyte % 2.5 % Normal 0-3.0 Nucleated Red Blood Cell % 0.0 % Normal 0-0 Neutrophils # 5.2 10 Normal 1.5-8.5 Lymph # 0.8 10 Low 1.5-5.0 Jackson # 3.4 10 High 0.0-0.8 Eos # 0.1 10 Normal 0.0-0.5 Baso # 0.0 10 Normal 0.0-0.2 Laboratory test finding 09/25/2020 [facility] (Interface) [phone] Ca19-9 Tumor Marker,Carbohydra 5746.2 U/ML High <35.0 20 CBC With Auto Differential OB 09/18/2020 [facility] (Interface) [phone] White Blood Count 8.0 10 Normal 4.0-10.0 21 Red Blood Count 4.52 10 Normal 4.30-6.10 [...] 36.0-66.0 Lymph % 10.8 % Low 24.0-44.0 Jackson % 37.8 % High 2.0-8.0 Eos % 1.8 % Normal 0.0-3.0 Baso % 0.3 % Normal 0.0-1.0 Immature Granulocyte % 2.3 % Normal 0-3.0 Nucleated Red Blood Cell % 0.0 % Normal 0-0 Neutrophils # 3.8 10 Normal 1.5-8.5 Lymph # 0.9 10 Low 1.5-5.0 Jackson # 3.0 10 High 0.0-0.8 Eos # 0.1 10 Normal 0.0-0.5 Baso # 0.0 10 Normal 0.0-0.2 Comprehensive Metabolic Profil 09/18/2020 [facility] (Interface) [phone] Glucose, Fasting 120 mg/dL High 70-100 Blood [...] GM/DL Normal 3.2-5.2 Albumin/Globulin Ratio 1.7 Normal Lipid Panel 09/04/2020 [facility] Chol 171 mg/dL 0 - 200 23 Trig 58 mg/dL 35 - 200 HDL 53 mg/dL 35 - 55 LDL_C 106 Calc 75 - 129 Cho/HDL Ratio 3.2 CALC CMP 09/04/2020 [facility] Glu 128 mg/dL High 70 - 110 BUN 16 mg/dL 8 - 23 Creat [...] Gap 16 mmol/L eGFR 103 # Calc 24 eGFR Non-Afr. Grenadian 89 # Calc 25 Laboratory test finding 09/04/2020 [facility] Hemoglobin A1c 6.1 % 4.50-6.20 CBC With Auto Differential OB 08/31/2020 [facility] ([facility]) [phone] White Blood Count 9.6 10 Normal 4.0-10.0 26 Red Blood Count [...] 36.0-66.0 Lymph % 6.8 % Low 24.0-44.0 Jackson % 37.0 % High 2.0-8.0 Eos % 0.8 % Normal 0.0-3.0 Baso % 0.2 % Normal 0.0-1.0 Immature Granulocyte % 1.6 % Normal 0-3.0 Nucleated Red Blood Cell % 0.0 % Normal 0-0 Neutrophils # 5.2 10 Normal 1.5-8.5 Lymph # 0.7 10 Low 1.5-5.0 Jackson # 3.6 10 High 0.0-0.8 Eos # 0.1 10 Normal 0.0-0.5 Baso # 0.0 10 Normal 0.0-0.2 Comprehensive Metabolic Profil 08/31/2020 [facility] ([facility]) [phone] Glucose, Fasting 136 mg/dL High 70-100 Blood Urea Nitrogen 18 mg/dL Normal 7-18 Creatinine For GFR 0.86 mg/dL Normal 0.70-1.30 Glomerular Filtration Rate > 60.0 Normal >35 2 7 Sodium Level 139 mEq/L Normal 136-145 [...] Glu 147 mg/dL High 70 - 110 28 BUN 14 mg/dL 8 - 23 Creat [...] Gap 19 mmol/L eGFR 97 # Calc 29 eGFR Non-Afr. Grenadian 84 # Calc 30 CBC W/Automated Diff 06/30/2020 [place] [address] [phone] CBC W/Automated Diff (SEE NOTE) 31 WBC 8.5 10^3/uL 4.2 - 11.0 RBC [...] Lymph 9.8 % Low 25.0 - 40.0 Jackson 34.8 % High 3.0 - 8.0 Eos 0.9 % 0.0 - 7.0 Baso 0.2 % 0.0 - 2.0 %Ig 2.2 % High 0.0 - 0.0 %NRBC 0.0 % 0.0 - 0.0 #Neut 4.40 10^3/uL 2.00 - 6.90 #Lymph 0.83 10^3/uL 0.60 - 3.40 #Jackson 2.95 10^3/uL High 0.00 - 0.90 #Eos 0.08 10^3/uL 0.00 - 0.70 #Baso 0.02 10^3/uL 0.00 - 0.20 #Ig 0.19 10^3/uL High 0.00 - 0.10 #NRBC 0.00 10^3/uL 0.00 - 0.00 Manual Diff SEE BELOW Segs 33 % Low 37 - 80 Band 13 % High 0 - 5 %Lymph 15 % Low 25 - 40 %Jackson 39 % High 3 - 8 RBC Morph MORPH IS NORMAL Carbohydrate Ag 19-9 (Serial) 06/29/2020 [facility] [place] CA 19-9 1079 U/mL High 0-35 32 PDF . Laboratory test finding 06/29/2020 [facility] [place] Amylase 22 U/L Low 31-110 Lipase 16 U/L 13-78 1 Units are mL/min/1.73 m2 Chronic Kidney Disease Staging per NKF: Stage I & II GFR >=60 Normal to Mildly Decreased Stage III GFR 30-59 Moderately Decreased Stage IV GFR 15-29 Severely Decreased Stage V GFR <15 Very Little GFR Left ESRD GFR <15 on PERSONAL LINES ADVISOR 2 See Pathology Report Specimen Collection for Pathology Reference Lab Testing. Refer to [facility] Pathology Report for Results:[id number] See Pathology Report Specimen Collection for Pathology Reference Lab Testing. Refer to [facility] Pathology Report for Results: [id number] 4 Units are mL/min/1.73 m2 Chronic Kidney Disease Staging per NKF: Stage I & II GFR >=60 Normal to Mildly Decreased Stage III GFR 30-59 Moderately Decreased Stage IV GFR 15-29 Severely Decreased Stage V GFR <15 Very Little GFR Left ESRD GFR <15 on PERSONAL LINES ADVISOR 5 THE CA 19-9 ASSAY IS PERFORM ED ON THE [employer] BY CHEMILUMINESCENCE AND SHOULD NOT BE COMPARED INTERCHANGEABLY WITH OTHER METHODS. IT SHOULD NOT BE USED ALONE A SCREENING TEST OR DIAGNOSIS FOR THE PRESENCE OR ABSENCE OF MALIGNANT DISEASE. PREDICTIONS OF DISEASE RECURRENCE SHOULD NOT BE BASED SOLELY ON VALUES OBTAINED FROM SERIAL PATIENT SERUM VALUES. 6 DIAGNOSIS CRITERIA MMB ng/ml Relative Index (RI) NON-AMI < or = 5 N/A PRINCE ZONE > 5 < or = 4 AMI > 5 > 4 7 Troponin I Reference Interva l for Siemens [place] LOCI: 99th Percentile= 0.00-0.045 ng/ml Risk Stratification: <= 0.10 ng/ml Decreased Risk for Adverse Clinical Events. 0.10-1.50 ng/ml Increased Risk for Adv erse Clinical Events. Evaluation of additional criterion and/or repeat testing in 2-6 hours is suggested to rule out myocardial damage. >= 1.50 ng/ml Indicative of Myocardial Injury. 8 A Pathologist review of this differential can help in the evaluation of a differential diagnosis. Please order a Pathologist Review (PERISM) if deemed necessary. Results are subject to change if a Pathologist Review is performed. 9 Units are mL/min/1.73 m2 Chronic Kidney Disease Staging per NKF: Stage I & II GFR >=60 Normal to Mildly Decreased Stage III GFR 30-59 Moderately Decreased Stage IV GFR 15-29 Severely Decreased Stage V GFR <15 Very Little GFR Left ESRD GFR <15 on PERSONAL LINES ADVISOR 10 THERAPUTIC HUMAN INR VALUES INDICATIONS NORMAL RANGES PROPHYLAXIS/TREATMENT OF: VENOUS THROMBOSIS 2.0-3.0 PULMONARY EMBOLISM 2.0-3.0 PREVENTION OF SYSTEMIC EMBOLISM FROM: TISSUE HEART VALVES 2.0-3.0 ACUTE MYOCARDIAL INFARCTION 2.0-3.0 VALVULAR HEART DISEASE 2.0-3.0 ATRIAL FIBRILLATION 2.0-3.0 MECHANICAL VALVES(HIGH RISK) 2.5-3.5 RECURRENT MYOCARDIAL INFARCTION 2.5-3.5 11 Negative results do not prec lude [...] treatment or other patient management decisions. 14 A false negative result may occur if [...] pathogens. DISCLAIMER: Testing was performed using the [employer] SARS-CoV-2 test. This test was developed and its performance characteristics determined by [employer]. This test has not been FDA cleared [...] the authorization is terminated or revoked sooner. 15 Y/N query for Sepsis Lactate Rule: Y 16 ASSAY INFORMATION: Real Time RT-PCR NOTE: The COVID-19 assay has been cleared by the U.S. Food and Drug Administration under the Emergency Use Authorization (EUA). [employer] and [employer] are designated as high complexity laboratories by the Clinical Laboratory Improvement Amendments of 1988(CLIA) and are qualified to perform this test. Not Detected 17 Units are mL/min/1.73 m2 Chronic Kidney Disease Staging per NKF: Stage I & II GFR >=60 Normal to Mildly Decreased Stage III GFR 30-59 Moderately Decreased Stage IV GFR 15-29 Severely Decreased Stage V GFR <15 Very Little GFR Left ESRD GFR <15 on PERSONAL LINES ADVISOR 18 THE CA 19-9 ASSAY IS PERFORM ED ON THE [employer] BY CHEMILUMINESCENCE AND SHOULD NOT BE COMPARED INTERCHANGEABLY WITH OTHER METHODS. IT SHOULD NOT BE USED ALONE A SCREENING TEST OR DIAGNOSIS FOR THE PRESENCE OR ABSENCE OF MALIGNANT DISEASE. PREDICTIONS OF DISEASE RECURRENCE SHOULD NOT BE BASED SOLELY ON VALUES OBTAINED FROM SERIAL PATIENT SERUM VALUES. 19 A Pathologist review of this differential can help in the evaluation of a differential diagnosis. Please order a Pathologist Review (PERISM) if deemed necessary. Results are subject to change if a Pathologist Review is performed. 20 THE CA 19-9 ASSAY IS PERFORM ED ON THE [employer] BY CHEMILUMINESCENCE AND SHOULD NOT BE COMPARED INTERCHANGEABLY WITH OTHER METHODS. IT SHOULD NOT BE USED ALONE A SCREENING TEST OR DIAGNOSIS FOR THE PRESENCE OR ABSENCE OF MALIGNANT DISEASE. PREDICTIONS OF DISEASE RECURRENCE SHOULD NOT BE BASED SOLELY ON VALUES OBTAINED FROM SERIAL PATIENT SERUM VALUES. 21 A Pathologist review of this differential can help in the evaluation of a differential diagnosis. Please order a Pathologist Review (PERISM) if deemed necessary. Results are subject to change if a Pathologist Review is performed. 22 Units are mL/min/1.73 m2 Chronic Kidney Disease Staging per NKF: Stage I & II GFR >=60 Normal to Mildly Decreased Stage III GFR 30-59 Moderately Decreased Stage IV GFR 15-29 Severely Decreased Stage V GFR <15 Very Little GFR Left ESRD GFR <15 on PERSONAL LINES ADVISOR 23 CHRONIC KIDNEY DISEASE STAGI NG PER NKF: [...] ADOLESCENTS REPRESENTS INDIVIDUALA AGED 2-19 YEARS EXCLUSIVE. 24 CKD-EPI 25 CKD-EPI 26 A Pathologist review of this differential [...] Little GFR Left ESRD GFR <15 on PERSONAL LINES ADVISOR 28 NORMAL RANGES Age WBC RBC HGB HCT [...] HCT IS 5% LESS SOURCE FOR DATA: [employer] 1800 OPERATION MANUAL( AUTOMATED BLOOD COUNTS AND [...] Normal 80 and above >32 mL/min Normal 29 CKD-EPI 30 CKD-EPI 31 COMPLETE BLOOD COUNT 32 [employer] Electroche miluminescence Immunoassay (ECLIA) Values obtained with different assay methods or kits cannot be used interchangeably. Results cannot be interpreted as absolute evidence of the presence or absence of malignant disease. Procedures Date Code Description Status 11/17/2020 41705 Office/Outpatient Established Mo d MDM 30-39 Min Completed 07/29/2020 85997 Office/Outpatient Established Mo d MDM 30-39 Min Completed 06/29/2020 35036 Office/Outpatient Established Mo d MDM 30-39 Min Completed Medical Devices Description No Information Available Encounters Type Date Location Provider Dx Diagnosis Office Visit 11/17/2020 11:15a [place] [facility] Homero Sanchez M. D. 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 D. C25.1 Malignant neoplasm of body of pancreas Office Visit 06/29/2020 3:40p [place] [facility] Homero Sanchez M. D. 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 09/04/2020 R73.01 Impaired fasting glucose Homero Da Silva M.D. 09/04/2020 R73.01 Impaired fasting glucose Laborat [facility]y [place] Schedule 09/04/2020 E78.2 Mixed hyperlipidemia John Sanchez M.D. 09/04/[address] [facility] Schedule 07/29/2020 C25.1 Malignant neoplasm of body of pa Homero Earl M.D. 06/29/2020 C25.1 Malignant neoplasm of body of pa Homero Earl M.D. Plan of Treatment No Information Available Functional Status Description No Information Available Mental Status Description No Information Available Referrals Refer to Reason for Referral Status Appt Date [facility] Oncology & Hematology pancreatic mass- eval and rx , MRCP and CA19-9 pending Sent 07/27/2020 [address] [place] [address]
--- OUTSIDE RECORDS SUMMARY | 2021-01-23 15:30 | CCD ---
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 confirmed 7308027988590 Problem Malignant neoplasm of pancreas, unspecified loca tion of malignancy C25.9 Active confirmed 187137163 Problem Leukocytosis, unspecified type D72.829 Active confi rmed 031131257 ALLERGIES Allergen (clinical drug ingredient) Drug/Non Drug Allergy do cumented on EMR Reaction Allergy Type Onset Date Status Penicillin (For Allergies Use Only) unknown by patient Tom francisco Allergy Active ENCOUNTERS from 1940 to 2020-11-25 Encounter Location Date Provider Diagnosis [address] [phone] [place] [address] Nov, Moses Nathen IMMUNIZATIONS No Information SOCIAL HISTORY Sex Assigned At : Social History Observation Description Sex Assigned At Unknown Education: Question Answer Notes Level of Education: Not Finished College Language: Question Answer Notes Languages spoken: [place] Baptism: Question Answer Notes Baptism 08 Mu-Ism REASON FOR REFERRAL No Information VITAL SIGNS No information MEDICATIONS Medication SIG (Take, Route, Frequency, Duration) Notes Start Da te End Date Status Aspir-Low 81 MG 1 tablet Orally Once a day Active Multivitamin - 1 tablet Orally Once a day Active ceFAZolin Sodium 2 GM/20ML as directed Intravenous q 8 Active Compazine 25mg Active Probiotic - as directed Orally Activ e Vitamin D 50 MCG (1999) 1 capsule Orally Once a day Active Zofran 4 MG 1 tablet Orally Once a day for 30 day(s) Active PROCEDURES No Information RESULTS No Results REASON FOR VISIT No Information MEDICAL (GENERAL) HISTORY Type Description Date Medical [...] No Information FUNCTIONAL STATUS No Information ASSESSMENTS No Information PLAN OF TREATMENT Medication Medication Name Sig Start Date Stop Date Aspir-Low 81 MG 1 tablet Orally Once a day Probiotic - as directed Orally ceFAZolin Sodium 2 GM/20ML as directed Intravenous q 8 Vitamin D 50 MCG (1999) 1 capsule Orally Once a day Multivitamin - 1 tablet Orally Once a day Next Appt Details Provider Name:Moses Sena, 09-2 8 09:30:00 AM, [address] [place] [address], , [place], [place], [facility], Insurance Providers Payer Name Payer Address Payer Phone Insured Name Patient Relati onship to Insured Coverage Start Date Coverage End Date MEDICARE Part A and B [address] [facility] [id number] [employer] BRIONES self R [facility] [address] [address] [facility] [phone] [employer] BRION[employer] self
--- OUTSIDE RECORDS SUMMARY | 2021-01-23 15:30 | CCD | Continuity of Care Document ---
Author Author Trace SANCHEZ M.D. Organization Unknown Address [address] [address] Phone [phone] Care Team Providers Care Metal Dealer Name Role Phone Neftali Malik Kasandra [facility] [phone] Problems Active Problems Provider Date Urolith Homero [...] CPT Code Status Date Vaccine Lot # [id number] Given 07/29/2015 Prevnar 13 Pneum o. Conj Ped. Vaccine 13 Valent (PCV13) For Im Use [id number] Given 07/24/2014 Zoster (Shingles) Vaccine 02026 Refused 02/22/2019 Influenza Virus Vaccine, Quadrivalent, Slit Virus, Im Use 3Y & Up [id number] Refused 02/13/2018 Influenza Virus Vaccine, Quadrivalent, Slit Virus, Im Use 3Y & Up 99869 Refused 02/03/2016 Influenza Virus Vaccine, Quadrivalent, Slit Virus, Im Use 3Y & Up Vital Signs Date Vital Result Comment 11/17/2020 11:02am BP Systolic 118 mmHg BP Diastolic 72 mmHg Body Temperature 98.1 F Heart Rate 76 /min Respiratory Rate 12 /min Height 68 inches 5'8" Weight 132.00 lb [place] Body Weight 154 lb BMI (Body Mass Index) 20.1 kg/m2 O2 % BldC Oximetry 94 % 07/29/2020 2:17pm BP Systolic 120 mmHg BP Diastolic 78 mmHg Body Temperature 97.9 F Heart Rate 50 /min Respiratory Rate 14 /min Height 68 inches 5'8" Weight 140.00 lb [place] Body Weight 154 lb BMI (Body Mass Index) 21.3 kg/m2 O2 % BldC Oximetry 95 % Results Test Acquired Date Facility Test Result H/L Range Note Comprehensive Metabolic Profil 12/10/2020 [facility] (Interface) [phone] Glucose, Fasting 129 mg/dL High 70-100 Blood [...] Ratio 1.3 Normal Laboratory test finding 12/10/2020 [facility] (Interface) [phone] Ca19-9 Tumor Marker,Carbohydra 98201.8 U/ML High <35.0 2 Blood Culture 12/10/2020 [facility] [phone] Blood Culture No growth after <SEE NOTE> 3 Blood Culture 12/10/2020 [facility] [phone] Blood Culture No growth after <SEE NOTE> 4 CBC With Auto Differential OB 12/10/2020 [facility] (Interface) [phone] White Blood Count 10.7 10 High 4.0-10.0 [...] 36.0-66.0 Lymph % 7.0 % Low 24.0-44.0 [place] % 33.2 % High 2.0-8.0 Eos % 0.8 % Normal 0.0-3.0 Baso % 0.4 % Normal 0.0-1.0 Immature Granulocyte % 4.3 % High 0-3.0 Nucleated Red Blood Cell % 0.0 % Normal 0-0 Neutrophils # 5.8 10 Normal 1.5-8.5 Lymph # 0.8 10 Low 1.5-5.0 [place] # 3.5 10 High 0.0-0.8 Eos # 0.1 10 Normal 0.0-0.5 Baso # 0.0 10 Normal 0.0-0.2 Laboratory test finding 11/10/2020 [facility] (Interface) [phone] Cytogenetics Fish For Path So See Pathology Re < SEE NOTE> Normal 5 BCR/Abl Screen For CML Path So See Pathology Re <SEE NOTE> Normal 6 CBC With Auto Differential OB 11/06/2020 [facility] (Interface) [phone] White Blood Count 38.5 10 Critical high [...] 36.0-66.0 Lymph % 4.1 % Low 24.0-44.0 [place] % 21.0 % High 2.0-8.0 Eos % 0.1 % Normal 0.0-3.0 Baso % 0.7 % Normal 0.0-1.0 Immature Granulocyte % 11.4 % High 0-3.0 Nucleated Red Blood Cell % 0.0 % Normal 0-0 Neutrophils # 24.2 10 High 1.5-8.5 Lymph # 1.6 10 Normal 1.5-5.0 [place] # 8.1 10 High 0.0-0.8 Eos # 0.0 10 Normal 0.0-0.5 Baso # 0.3 10 High 0.0-0.2 Comprehensive Metabolic Profil 11/06/2020 [facility] (Interface) [phone] Glucose, Fasting 133 mg/dL High 70-100 Blood [...] Ratio 1.0 Normal Laboratory test finding 11/06/2020 [facility] (Interface) [phone] Ca19-9 Tumor Marker,Carbohydra 6514.9 U/ML High <35.0 8 Laboratory test finding 10/23/2020 [facility] (Interface) [phone] Platelet Estimate DECREASED Normal Normal Immature Platelet Fraction 7.1 % Normal 0.0-10.91 Istat Chem8+ Panel 10/23/2020 [facility] [phone] iSTAT HCT 40.0 % Normal 38.0-51.0 iSTAT Glucose 232 mg/dL High 70-105 iSTAT Sodium 136 mEq/L Normal 136-145 iSTAT Potassium 3.6 mEq/L Normal 3.5-5.1 iSTAT CA++ 4.4 mg/dL Low 4.5-5.3 iSTAT Chloride 98 mEq/L Normal 98-109 iSTAT Co2 20.0 MM/L Low 23.0-27.0 iSTAT BUN 15 mg/dL Normal 8-26 iSTAT Creatinine 0.9 mg/dL Normal 0.6-1.3 Differential 10/23/2020 [facility] [phone] Neutrophils 84 % High 28-66 Bands 6 % Normal < 11 Lymphocytes 2 % Low 16-44 Monocytes 8 % High 0-5 RBC Morphology NORMAL Normal CBC With Differential 10/23/2020 [facility] (Interface) [phone] White Blood Count 23.5 10 High 4.0-10.0 [...] % High 0-0 Laboratory test finding 10/23/2020 [facility] (Interface) [phone] NT-Pro BNP 2080 pg/mL High <450 Basic Metabolic Profile 10/23/2020 [facility] (Interface) [phone] Glucose, Fasting 215 mg/dL High 70-100 Blood [...] mg/dL Low 8.8-10.2 Cardiac Marker Panel 10/23/2020 [facility] ( Interface) [phone] CPK Creatine Phosphokinase 24 U/L Low 39-30 8 CK-MB Value Mass < 1.0 NG/ML Normal <3.6 MB/CK Relative Index 4.17 High < Or =4 11 Troponin I 0.15 NG/ML High < 0.10 12 Laboratory test finding 10/23/2020 [facility] (Interface) [phone] Partial Thromboplastin Time 30.9 seconds Normal 25 .9-37.0 Prothrombin Time/Inr 10/23/2020 [facility] ( Interface) [phone] Prothrombin Time 15.9 seconds High 12.7-14.5 Inr 1.23 Normal 13 Influenxa A/B RSV Covid Amp 10/23/2020 [facility] (Interface) [phone] Influenza A Amplification NEGATIVE Normal Negati ve 14 Influenza B Amplification NEGATIVE Normal Negative 15 RSV Amplification NEGATIVE Normal Negative 16 Sars Covid-19 Amplification NEGATIVE Normal Negative 17 Laboratory test finding 10/23/2020 [facility] (Interface) [phone] Lactic Acid Sepsis Protocol 3.0 mmol/L Critical high 0 .4-2.0 18 Liver Profile 10/23/2020 [facility] (I [facility]) [phone] Ast/Sgot 13 U/L Normal 7-37 Alt/SGPT 17 U/L Normal 12-78 Alkaline Phosphatase 132 U/L High 45-117 Bilirubin,Total 0.9 mg/dL Normal 0.2-1.0 Bilirubin,Direct 0.4 mg/dL High 0.0-0.2 Total Protein 5.9 GM/DL Low 6.4-8.2 Albumin 3.3 GM/DL Normal 3.2-5.2 Albumin/Globulin Ratio 1.3 Normal Coronavirus 2019 Nasopharygeal 10/15/2020 [facility] (Interface) [phone] Coronavirus 2019 Nasopharygeal ASSAY INFORMATIO <SEE N OTE> 19 CBC With Auto Differential OB 10/08/2020 [facility]) [phone] White Blood Count 9.8 10 Normal 4.0-10.0 [...] 36.0-66.0 Lymph % 8.1 % Low 24.0-44.0 [place] % 34.9 % High 2.0-8.0 Eos % 1.0 % Normal 0.0-3.0 Baso % 0.3 % Normal 0.0-1.0 Immature Granulocyte % 2.5 % Normal 0-3.0 Nucleated Red Blood Cell % 0.0 % Normal 0-0 Neutrophils # 5.2 10 Normal 1.5-8.5 Lymph # 0.8 10 Low 1.5-5.0 [place] # 3.4 10 High 0.0-0.8 Eos # 0.1 10 Normal 0.0-0.5 Baso # 0.0 10 Normal 0.0-0.2 Comprehensive Metabolic Profil 10/08/2020 [facility] ([facility]) [phone] Glucose, Fasting 131 mg/dL High 70-100 Blood [...] Ratio 1.8 Normal Laboratory test finding 10/08/2020 [facility] ([facility]) [phone] Ca19-9 Tumor Marker,Carbohydra 6310.2 U/ML High <35.0 22 Laboratory test finding 09/25/2020 [facility] ([facility]) [phone] Ca19-9 Tumor Marker,Carbohydra 5746.2 U/ML High <35.0 23 Comprehensive Metabolic Profil 09/18/2020 [facility]) [phone] Glucose, Fasting 120 mg/dL High 70-100 Blood [...] Normal CBC With Auto Differential OB 09/18/2020 [facility] (Interface) [phone] White Blood Count 8.0 10 Normal 4.0-10.0 [...] 36.0-66.0 Lymph % 10.8 % Low 24.0-44.0 [place] % 37.8 % High 2.0-8.0 Eos % 1.8 % Normal 0.0-3.0 Baso % 0.3 % Normal 0.0-1.0 Immature Granulocyte % 2.3 % Normal 0-3.0 Nucleated Red Blood Cell % 0.0 % Normal 0-0 Neutrophils # 3.8 10 Normal 1.5-8.5 Lymph # 0.9 10 Low 1.5-5.0 [place] # 3.0 10 High 0.0-0.8 Eos # [...] eGFR 103 # Calc 27 eGFR Non-Afr. Martiniquais 89 # Calc 28 Lipid Panel 09/04/2020 [facility] 171 mg/dL 0 - 200 Trig 58 mg/dL 35 - 200 HDL 53 mg/dL 35 - 55 LDL_C 106 Calc 75 - 129 Cho/HDL Ratio 3.2 CALC CBC With Auto Differential OB 08/31/2020 [facility] (Interface) [phone] White Blood Count 9.6 10 Normal 4.0-10.0 [...] 36.0-66.0 Lymph % 6.8 % Low 24.0-44.0 [place] % 37.0 % High 2.0-8.0 Eos % 0.8 % Normal 0.0-3.0 Baso % 0.2 % Normal 0.0-1.0 Immature Granulocyte % 1.6 % Normal 0-3.0 Nucleated Red Blood Cell % 0.0 % Normal 0-0 Neutrophils # 5.2 10 Normal 1.5-8.5 Lymph # 0.7 10 Low 1.5-5.0 [place] # 3.6 10 High 0.0-0.8 Eos # 0.1 10 Normal 0.0-0.5 Baso # 0.0 10 Normal 0.0-0.2 Comprehensive Metabolic Profil 08/31/2020 [facility] (Interface) [phone] Glucose, Fasting 136 mg/dL High 70-100 Blood [...] eGFR 97 # Calc 32 eGFR Non-Afr. Martiniquais 84 # Calc 33 CBC W/Automated Diff 06/30/2020 [place] [address] [phone] CBC W/Automated Diff (SEE NOTE) 34 WBC [...] Lymph 9.8 % Low 25.0 - 40.0 [place] 34.8 % High 3.0 - 8.0 Eos 0.9 % 0.0 - 7.0 Baso 0.2 % 0.0 - 2.0 %Ig 2.2 % High 0.0 - 0.0 %NRBC 0.0 % 0.0 - 0.0 #Neut 4.40 10^3/uL 2.00 - 6.90 #Lymph 0.83 10^3/uL 0.60 - 3.40 #[place] 2.95 10^3/uL High 0.00 - 0.90 #Eos 0.08 10^3/uL 0.00 - 0.70 #Baso 0.02 10^3/uL 0.00 - 0.20 #Ig 0.19 10^3/uL High 0.00 - 0.10 #NRBC 0.00 10^3/uL 0.00 - 0.00 Manual Diff SEE BELOW Segs 33 % Low 37 - 80 Band 13 % High 0 - 5 %Lymph 15 % Low 25 - 40 %[place] 39 % High 3 - 8 RBC [...] Little GFR Left ESRD GFR <15 on PROSTHETIC MAKEUP DESIGNER 2 THE CA 19-9 ASSAY IS PERFORM ED ON THE [employer] BY CHEMILUMINESCENCE AND SHOULD NOT BE COMPARED INTERCHANGEABLY WITH OTHER METHODS. IT SHOULD NOT BE USED ALONE A SCREENING TEST OR DIAGNOSIS FOR THE PRESENCE OR ABSENCE OF MALIGNANT DISEASE. PREDICTIONS OF DISEASE RECURRENCE SHOULD NOT BE BASED SOLELY ON VALUES OBTAINED FROM SERIAL PATIENT SERUM VALUES. 3 No growth after 24 hours . A ll specimens observed for 5 days. Results final at that time. 4 No growth after 24 hours . A ll specimens observed for 5 days. Results final at that time. 5 See Pathology Report Specimen Collection for Pathology Reference Lab Testing. Refer to [facility] Pathology Report for Results:[id number] 6 See Pathology Report Specimen Collection for Pathology Reference Lab Testing. Refer to [facility] Pathology Report for Results: [id number] Units are mL/min/1.73 m2 Chronic Kidney Disease Staging per NKF: Stage I & II GFR >=60 Normal to Mildly Decreased Stage III GFR 30-59 Moderately Decreased Stage IV GFR 15-29 Severely Decreased Stage V GFR <15 Very Little GFR Left ESRD GFR <15 on PROSTHETIC MAKEUP DESIGNER 8 THE CA 19-9 ASSAY IS PERFORM ED ON THE [employer] BY CHEMILUMINESCENCE AND SHOULD NOT BE COMPARED [...] Little GFR Left ESRD GFR <15 on PROSTHETIC MAKEUP DESIGNER 11 DIAGNOSIS CRITERIA MMB ng/ml Relative Index (RI) NON-AMI < or = 5 N/A PRINCE ZONE > 5 < or = 4 AMI > 5 > 4 12 Troponin I Reference Interva l for Siemens [place] LOCI: 99th Percentile= 0.00-0.045 ng/ml Risk Stratification: [...] pathogens. DISCLAIMER: Testing was performed using the [employer] SARS-CoV-2 test. This test was developed and its performance characteristics determined by [facility]. This test has not been FDA cleared [...] Administration under the Emergency Use Authorization (EUA). Answer[facility]To and [facility] are designated as high complexity laboratories by [...] Little GFR Left ESRD GFR <15 on PROSTHETIC MAKEUP DESIGNER 22 THE CA 19-9 ASSAY IS PERFORM ED ON THE [place] [employer] BY CHEMILUMINESCENCE AND SHOULD NOT BE COMPARED INTERCHANGEABLY WITH OTHER METHODS. IT SHOULD NOT BE USED ALONE A SCREENING TEST OR DIAGNOSIS FOR THE PRESENCE OR ABSENCE OF MALIGNANT DISEASE. PREDICTIONS OF DISEASE RECURRENCE SHOULD NOT BE BASED SOLELY ON VALUES OBTAINED FROM SERIAL PATIENT SERUM VALUES. 23 THE CA 19-9 ASSAY IS PERFORM ED ON THE [place] BY CHEMILUMINESCENCE AND SHOULD NOT BE [...] Little GFR Left ESRD GFR <15 on PROSTHETIC MAKEUP DESIGNER 25 A Pathologist review of this differential [...] Little GFR Left ESRD GFR <15 on PROSTHETIC MAKEUP DESIGNER 31 NORMAL RANGES Age WBC RBC HGB [...] HCT IS 5% LESS SOURCE FOR DATA: [facility] 1800 OPERATION MANUAL( AUTOMATED BLOOD COUNTS AND [...] disease. Procedures Date Code Description Status 11/17/2020 25152 Office/Outpatient Established Mo d MDM 30-39 Min Completed 07/29/2020 44029 Office/Outpatient Established Mo d MDM 30-39 Min Completed 06/29/2020 46188 Office/Outpatient Established Mo d MDM 30-39 Min Completed Medical Devices Description No Information Available Encounters Type Date Location Provider Dx Diagnosis Office Visit 11/17/2020 11:15a [place] [facility] Homero Sanchez M. D. 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 D. C25.1 Malignant neoplasm of body of pancreas Office Visit 06/29/2020 3:40p [place] [facility] Homero Sanchez M. D. 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 09/04/2020 R73.01 Impaired fasting glucose Homero Da Silva M.D. 09/04/2020 R73.01 [facility] fasting [facility] Schedule 09/04/2020 E78.2 Mixed hyperlipidemia John Sanchez M.D. 09/04/2020 E78.2 Mixed hyperlipidemia [facility] Schedule 07/29/2020 C25.1 Malignant neoplasm of body of pa Homero Earl M.D. 06/29/2020 C25.1 Malignant neoplasm of body of pa Homero Earl M.D. Plan of Treatment No Information Available Functional Status Description No Information Available Mental Status Description No Information Available Referrals Refer to Dr Reason for Referral Status Appt Date [facility] Oncology & Hematology pancreatic mass- eval and rx , MRCP and CA19-9 pending Sent 07/27/2020 [address] [place] [address]
--- OUTSIDE RECORDS SUMMARY | 2021-01-23 15:30 | CCD ---
Author Author Zach Siegel MD [facility] Organization Zach Siegel MD [facility] Address [address] [address] Phone Care Team Providers Care Unit Reactor Operator Name Role Phone Christal SERRANO, NATALY, Zach Conley Unavailable [phone] Birgit Valentin NP PP [phone] Reason for Referral No Reason for Referral Recorded Problems Includes: Active, inactive, and resolved Problems All Visits Onset Date - Time Resolved Date - Time Provider Co ndition Status Blepharitis Both Eyelids 10/08/2014 - 12:00AM Zach Siegel MD, FACS Active Note: Unchanged Pinguecula Bilateral 10/08/2014 - 12:00AM Zach Parks MD, FACS Active Note: Unchanged Conjunctivitis Chronic Allergic 09/27/2013 - 12:00AM Zach Siegel MD, FACS Active Note: Unchanged Astigmatism - Regular 08/17/2012 - 12:00AM Zach Fung MD FACS Active Note: Unchanged Dermatochalasis Both Eyelids 08/17/2012 - 12:00AM Zach Siegel MD FACS Active Note: Unchanged Refractive Error - Myopia 08/17/2012 - 12:00AM Zach Siegel MD, FACS Active Note: Unchanged Pinguecula 08/17/2012 - :00AM Zach Siegel MD, FACS Inactive Note: Unchanged Dry Eye Syndrome Both Eyes 08/17/2012 - 12:00AM Zach Siegel MD, FACS Active Note: Unchanged Vitreous Floaters Both Eyes 08/17/2012 - 12:00AM Zach Siegel MD, FACS Active Note: Unchanged Plan of Treatment Future Appointments Date Time Location Provider 1 Year Follow-Up 01/04/2021 9:40AM Zach Siegel MD [facility] Zach Siegel MD, FACS Assessments Includes: Assessments for all patient encounters Findings Encounter Date Bilateral pinguecula 1 Year Follow-Up with Zach rhoades MD, FACS 01/02/2020 Chronic allergic conjunctivitis 1 Year Follow-Up with Zach Siegel MD, FACS 01/02/2020 Dizziness and giddiness 1 Year Follow-Up with Zach Davis MD, FACS 01/02/2020 Dry eye syndrome of both eyes 1 Year Follow-Up with Chandler Siegel MD, FACS 01/02/2020 Bilateral pinguecula 1 Year Follow-Up with Zach rhoades MD, FACS 12/25/2018 Chronic allergic conjunctivitis 1 Year Follow-Up with Zach Siegel MD, FACS 12/25/2018 Dry eye syndrome of both eyes 1 Year Follow-Up with Chandler Siegel MD, FACS 12/25/2018 Bilateral pinguecula 1 Year Follow-Up with Zach rhoades MD, FACS 12/13/2017 Chronic allergic conjunctivitis 1 Year Follow-Up with Zach Siegel MD, FACS 12/13/2017 Dry eye syndrome of both eyes 1 Year Follow-Up with Chandler Siegel MD, FACS 12/13/2017 Myopia 1 Year Follow-Up with Zach almendarez MD, FACS 12/13/2017 Bilateral pinguecula 1 Year Follow-Up with Zach rhoades MD, FACS 12/12/2016 Chronic allergic conjunctivitis 1 Year Follow-Up with Zach Siegel MD, FACS 12/12/2016 Dry eye syndrome of both eyes 1 Year Follow-Up with Chandler Siegel MD, FACS 12/12/2016 Bilateral pinguecula 1 Year Follow-Up with Zach rhoades MD, FACS 10/19/2015 Chronic allergic conjunctivitis 1 Year Follow-Up with Zach Siegel MD, FACS 10/19/2015 Dry eye syndrome of both eyes 1 Year Follow-Up with Chandler Siegel MD, FACS 10/19/2015 Bilateral pinguecula 1 Year Follow-Up with Zach rhoades MD, FACS 10/08/2014 Blepharitis in both eyes 1 Year Follow-Up with Zach Amaya MD, FACS 10/08/2014 Chronic allergic conjunctivitis both eyes 1 Year Foll ow-Up with Zach Carvalho MD, FACS 10/08/2014 Dermatochalasis of both eyes upper and lower lids 1 Y ear Follow-Up with Zach Siegel MD, FACS 10/08/2014 Dry eye syndrome of both eyes 1 Year Follow-Up with Chandler Siegel MD, FACS 10/08/2014 Vitreous floaters in both eyes 1 Year Follow-Up with Jailene Siegel MD, FACS 10/08/2014 Chronic allergic conjunctivitis of both eyes 1 Year F ollow-Up with Zach Siegel MD, FACS 09/27/2013 Dermatochalasis of both eyes 1 Year Follow-Up with Zach Siegel MD, FACS 09/27/2013 Dry eye syndrome of both eyes 1 Year Follow-Up with Chandler Siegel MD, FACS 09/27/2013 Pinguecula of both eyes 1 Year Follow-Up with Zach Amaya MD, FACS 09/27/2013 Vitreous floaters in both eyes 1 Year Follow-Up with Jailene Siegel MD, FACS 09/27/2013 Dermatochalasis of both eyes NEW PATIENT with Zach Davis MD, FACS 08/17/2012 Dry eye syndrome of both eyes NEW PATIENT with Zach Amaya MD, FACS 08/17/2012 Myopia NEW PATIENT with Zach Siegel MD, FACS 08/17/2012 Pinguecula NEW PATIENT with Zach Siegel MD, FACS 08/17/2012 Regular astigmatism NEW PATIENT with Zach Siegel MD, FACS 08/17/2012 Vitreous floaters in both eyes NEW PATIENT with Zach Parks MD, FACS 08/17/2012 Instructions Instructions not supported for this document typeNo Instructions Recorded Medical Equipment - Implanted Devices Includes: Current and historical DevicesNo Medical Equipment Recorded Medications Includes: Current and historical Medications Past Medications on file Simvastatin 20 MG OR TABS 08/17/2012 - 09/27/2013 Provider: Diagnosis: Medications Administered Includes: Administered Medications in patient's chartNo Administered Medications Recorded Vital Signs Includes: Vital Signs from 12/02/2019 through 12/01/2020No Vital Signs Recorded For Specified Dates Results Includes: Results from 12/02/2019 through 12/01/2020No Results Recorded For Specified Dates History of Present Illness History of Present Illness not supported for this document typeNo History of Present Illness Recorded Social History Description Last Updated No tobacco use 01/02/2020 Not using drugs 01/02/2020 Smoking status : Former smoker 01/02/2020 Alcohol use socially 12/25/2018 Previous smoking history 08/17/2012 Procedures and Surgical History Includes: Procedures from 12/02/2019 through 12/01/2020 Procedures Code Diagnosis Performing Provider Service Location Service Date Intermediate Eye Exam Established Patient 150[address] Pinguecula, bilateral, Dry eye syndrome of bilateral lacrimal glands, Other chronic allergic conjunctivitis, Dizziness and giddiness Zach Siegel MD, NATALY Siegel MD [facility] 01/02/2020 Surgical History Last Updated History of cataract extraction : PCIOLOU - 1995 [address] Taylor 12/25/2018 Surgical / procedural history : Hernia Repair 08/18/19 13 Medical History Includes: Medical History in patient's chart Description Last Updated Currently wearing eyeglasses 09/27/2013 No recent change in medical history 09/27/2013 Reported medical history 09/27/2013 History of hyperlipidemia 08/17/2012 Family History Includes: Family History in patient's chart Description Last Updated Maternal history of diabetes mellitus 01/02/2020 Family medical history was unknown 10/08/2014 Review of Systems Review of Systems not supported for this document typeNo Review of Systems Recorded Mental Status Mental Status not supported for this document type Description Oriented to time, place, and person Functional Status Functional Status not supported for this document typeNo Functional Status Recorded Physical Exam Physical Exam not supported for this document typeNo Physical Exam Recorded Immunizations Includes: Immunizations in patient's chartNo Immunizations Recorded Allergies Includes: Active, inactive, and resolved AllergiesNo Known Allergies Encounters Includes: Encounters from 12/02/2019 through 12/01/2020 Encounter Provider Location Date Check-In Time Check-Out Time D iagnosis 1 Year Follow-Up Zach Siegel MD, NATALY Dent [facility] 01/02/2020 9:02AM 9:59AM Conjunctivitis Chron ic Allergic, Dry Eye Syndrome Both Eyes, Pinguecula Bilateral, Dizziness Insurance Includes: Active Insurance Policies Plan Name Member ID Group # Subscriber Relationship Effective Da gabriel 1 - Medicare Part B [facility] ([facility]) [id number] Trace Chaudhry tledge Self 2 - [employer] /PRIOR AUTHS NEEDED [id number] Trace Beal Self Advance Directives Includes: Current Advance DirectivesNo Advance Directives Recorded Health Concerns Includes: Active Health ConcernsNo Active Health Concerns Recorded Goals Includes: Active GoalsNo Active Goals Recorded Interventions Includes: Interventions for active GoalsNo Interventions Recorded Evaluations & Outcomes Includes: Evaluations & Outcomes for active GoalsNo Outcomes Recorded
--- OUTSIDE RECORDS SUMMARY | 2021-01-23 15:30 | CCD | Continuity of Care Document ---
Author Author Trace SANCHEZ M.D. Organization Unknown Address [address] [address] Phone [phone] Care Team Providers Care Dentistry Professor Name Role Phone Neftali Malik Kasandra [facility] [phone] Problems Active Problems Provider Date Urolith Homero [...] CPT Code Status Date Vaccine Lot # 22718 Given 07/29/2015 Prevnar 13 Pneum o. Conj Ped. Vaccine 13 Valent (PCV13) For Im Use 07290 Given 07/24/2014 Zoster (Shingles) Vaccine 70559 Refused 02/22/2019 Influenza Virus Vaccine, Quadrivalent, Slit Virus, Im Use 3Y & Up 50147 Refused 02/13/2018 Influenza Virus Vaccine, Quadrivalent, Slit Virus, Im Use 3Y & Up 11804 Refused 02/03/2016 Influenza Virus Vaccine, Quadrivalent, Slit Virus, Im Use 3Y & Up Vital Signs Date Vital Result Comment 11/17/2020 11:02am BP Systolic 118 mmHg BP Diastolic 72 mmHg Body Temperature 98.1 F Heart Rate 76 /min Respiratory Rate 12 /min Height 68 inches 5'8" Weight 132.00 lb [place] Body Weight 154 lb BMI (Body Mass Index) 20.1 kg/m2 O2 % BldC Oximetry 94 % 07/29/2020 2:17pm BP Systolic 120 mmHg BP Diastolic 78 mmHg Body Temperature 97.9 F Heart Rate 50 /min Respiratory Rate 14 /min Height 68 inches 5'8" Weight 140.00 lb [place] Body Weight 154 lb BMI (Body Mass Index) 21.3 kg/m2 O2 % BldC Oximetry 95 % Results Test Acquired Date Facility Test Result H/L Range Note Comprehensive Metabolic Profil 12/10/2020 [facility] (Interface) [phone] Glucose, Fasting 129 mg/dL High 70-100 Blood [...] Ratio 1.3 Normal Laboratory test finding 12/10/2020 [facility] (Interface) [phone] Ca19-9 Tumor Marker,Carbohydra 93204.8 U/ML High <35.0 2 Blood Culture 12/10/2020 [facility] [phone] Blood Culture No growth after <SEE NOTE> 3 Blood Culture 12/10/2020 [facility] [phone] Blood Culture No growth after <SEE NOTE> 4 CBC With Auto Differential OB 12/10/2020 [facility] (Interface) [phone] White Blood Count 10.7 10 High 4.0-10.0 [...] 36.0-66.0 Lymph % 7.0 % Low 24.0-44.0 [place] % 33.2 % High 2.0-8.0 Eos % 0.8 % Normal 0.0-3.0 Baso % 0.4 % Normal 0.0-1.0 Immature Granulocyte % 4.3 % High 0-3.0 Nucleated Red Blood Cell % 0.0 % Normal 0-0 Neutrophils # 5.8 10 Normal 1.5-8.5 Lymph # 0.8 10 Low 1.5-5.0 [place] # 3.5 10 High 0.0-0.8 Eos # 0.1 10 Normal 0.0-0.5 Baso # 0.0 10 Normal 0.0-0.2 Laboratory test finding 11/10/2020 [facility] (Interface) [phone] Cytogenetics Fish For Path So See Pathology Re < SEE NOTE> Normal 5 BCR/Abl Screen For CML Path So See Pathology Re <SEE NOTE> Normal 6 CBC With Auto Differential OB 11/06/2020 [facility] (Interface) [phone] White Blood Count 38.5 10 Critical high [...] 36.0-66.0 Lymph % 4.1 % Low 24.0-44.0 [place] % 21.0 % High 2.0-8.0 Eos % 0.1 % Normal 0.0-3.0 Baso % 0.7 % Normal 0.0-1.0 Immature Granulocyte % 11.4 % High 0-3.0 Nucleated Red Blood Cell % 0.0 % Normal 0-0 Neutrophils # 24.2 10 High 1.5-8.5 Lymph # 1.6 10 Normal 1.5-5.0 [place] # 8.1 10 High 0.0-0.8 Eos # 0.0 10 Normal 0.0-0.5 Baso # 0.3 10 High 0.0-0.2 Comprehensive Metabolic Profil 11/06/2020 [facility] (Interface) [phone] Glucose, Fasting 133 mg/dL High 70-100 Blood [...] Ratio 1.0 Normal Laboratory test finding 11/06/2020 [facility] (Interface) [phone] Ca19-9 Tumor Marker,Carbohydra 6514.9 U/ML High <35.0 8 Laboratory test finding 10/23/2020 [facility] (Interface) [phone] Platelet Estimate DECREASED Normal Normal Immature Platelet Fraction 7.1 % Normal 0.0-10.91 Istat Chem8+ Panel 10/23/2020 [facility] [phone] iSTAT HCT 40.0 % Normal 38.0-51.0 iSTAT Glucose 232 mg/dL High 70-105 iSTAT Sodium 136 mEq/L Normal 136-145 iSTAT Potassium 3.6 mEq/L Normal 3.5-5.1 iSTAT CA++ 4.4 mg/dL Low 4.5-5.3 iSTAT Chloride 98 mEq/L Normal 98-109 iSTAT Co2 20.0 MM/L Low 23.0-27.0 iSTAT BUN 15 mg/dL Normal 8-26 iSTAT Creatinine 0.9 mg/dL Normal 0.6-1.3 Differential 10/23/2020 [facility] [phone] Neutrophils 84 % High 28-66 Bands 6 % Normal < 11 Lymphocytes 2 % Low 16-44 Monocytes 8 % High 0-5 RBC Morphology NORMAL Normal CBC With Differential 10/23/2020 [facility] (Interface) [phone] White Blood Count 23.5 10 High 4.0-10.0 [...] % High 0-0 Laboratory test finding 10/23/2020 [facility] (Interface) [phone] NT-Pro BNP 2080 pg/mL High <450 Basic Metabolic Profile 10/23/2020 [facility] (Interface) [phone] Glucose, Fasting 215 mg/dL High 70-100 Blood [...] mg/dL Low 8.8-10.2 Cardiac Marker Panel 10/23/2020 [facility] ( Interface) [phone] CPK Creatine Phosphokinase 24 U/L Low 39-30 8 CK-MB Value Mass < 1.0 NG/ML Normal <3.6 MB/CK Relative Index 4.17 High < Or =4 11 Troponin I 0.15 NG/ML High < 0.10 12 Laboratory test finding 10/23/2020 [facility] (Interface) [phone] Partial Thromboplastin Time 30.9 seconds Normal 25 .9-37.0 Prothrombin Time/Inr 10/23/2020 [facility] ( Interface) [phone] Prothrombin Time 15.9 seconds High 12.7-14.5 Inr 1.23 Normal 13 Influenxa A/B RSV Covid Amp 10/23/2020 [facility] (Interface) [phone] Influenza A Amplification NEGATIVE Normal Negati ve 14 Influenza B Amplification NEGATIVE Normal Negative 15 RSV Amplification NEGATIVE Normal Negative 16 Sars Covid-19 Amplification NEGATIVE Normal Negative 17 Laboratory test finding 10/23/2020 [facility] (Interface) [phone] Lactic Acid Sepsis Protocol 3.0 mmol/L Critical high 0 .4-2.0 18 Liver Profile 10/23/2020 [facility] (I nterface) [phone] Ast/Sgot 13 U/L Normal 7-37 Alt/SGPT 17 U/L Normal 12-78 Alkaline Phosphatase 132 U/L High 45-117 Bilirubin,Total 0.9 mg/dL Normal 0.2-1.0 Bilirubin,Direct 0.4 mg/dL High 0.0-0.2 Total Protein 5.9 GM/DL Low 6.4-8.2 Albumin 3.3 GM/DL Normal 3.2-5.2 Albumin/Globulin Ratio 1.3 Normal Coronavirus 2019 Nasopharygeal 10/15/2020 [facility] (Interface) [phone] Coronavirus 2019 Nasopharygeal ASSAY INFORMATIO <SEE N OTE> 19 CBC With Auto Differential OB 10/08/2020 [facility]) [phone] White Blood Count 9.8 10 Normal 4.0-10.0 [...] 36.0-66.0 Lymph % 8.1 % Low 24.0-44.0 [place] % 34.9 % High 2.0-8.0 Eos % 1.0 % Normal 0.0-3.0 Baso % 0.3 % Normal 0.0-1.0 Immature Granulocyte % 2.5 % Normal 0-3.0 Nucleated Red Blood Cell % 0.0 % Normal 0-0 Neutrophils # 5.2 10 Normal 1.5-8.5 Lymph # 0.8 10 Low 1.5-5.0 [place] # 3.4 10 High 0.0-0.8 Eos # 0.1 10 Normal 0.0-0.5 Baso # 0.0 10 Normal 0.0-0.2 Comprehensive Metabolic Profil 10/08/2020 [facility] ([facility]) [phone] Glucose, Fasting 131 mg/dL High 70-100 Blood [...] Ratio 1.8 Normal Laboratory test finding 10/08/2020 [facility] ([facility]) [phone] Ca19-9 Tumor Marker,Carbohydra 6310.2 U/ML High <35.0 22 Laboratory test finding 09/25/2020 [facility] ([facility]) [phone] Ca19-9 Tumor Marker,Carbohydra 5746.2 U/ML High <35.0 23 Comprehensive Metabolic Profil 09/18/2020 [facility]) [phone] Glucose, Fasting 120 mg/dL High 70-100 Blood [...] Normal CBC With Auto Differential OB 09/18/2020 [facility] (Interface) [phone] White Blood Count 8.0 10 Normal 4.0-10.0 [...] 36.0-66.0 Lymph % 10.8 % Low 24.0-44.0 [place] % 37.8 % High 2.0-8.0 Eos % 1.8 % Normal 0.0-3.0 Baso % 0.3 % Normal 0.0-1.0 Immature Granulocyte % 2.3 % Normal 0-3.0 Nucleated Red Blood Cell % 0.0 % Normal 0-0 Neutrophils # 3.8 10 Normal 1.5-8.5 Lymph # 0.9 10 Low 1.5-5.0 [place] # 3.0 10 High 0.0-0.8 Eos # [...] eGFR 103 # Calc 27 eGFR Non-Afr. Afghan 89 # Calc 28 Lipid Panel 09/04/2020 [facility] Chol 171 mg/dL 0 - 200 Trig 58 mg/dL 35 - 200 HDL 53 mg/dL 35 - 55 LDL_C 106 Calc 75 - 129 Cho/HDL Ratio 3.2 CALC CBC With Auto Differential OB 08/31/2020 [facility] (Interface) [phone] White Blood Count 9.6 10 Normal 4.0-10.0 [...] 36.0-66.0 Lymph % 6.8 % Low 24.0-44.0 [place] % 37.0 % High 2.0-8.0 Eos % 0.8 % Normal 0.0-3.0 Baso % 0.2 % Normal 0.0-1.0 Immature Granulocyte % 1.6 % Normal 0-3.0 Nucleated Red Blood Cell % 0.0 % Normal 0-0 Neutrophils # 5.2 10 Normal 1.5-8.5 Lymph # 0.7 10 Low 1.5-5.0 [place] # 3.6 10 High 0.0-0.8 Eos # 0.1 10 Normal 0.0-0.5 Baso # 0.0 10 Normal 0.0-0.2 Comprehensive Metabolic Profil 08/31/2020 [facility] (Interface) [phone] Glucose, Fasting 136 mg/dL High 70-100 Blood [...] eGFR 97 # Calc 32 eGFR Non-Afr. Afghan 84 # Calc 33 CBC W/Automated Diff 06/30/2020 [place] [address] [phone] CBC W/Automated Diff (SEE NOTE) 34 WBC [...] Lymph 9.8 % Low 25.0 - 40.0 [place] 34.8 % High 3.0 - 8.0 Eos 0.9 % 0.0 - 7.0 Baso 0.2 % 0.0 - 2.0 %Ig 2.2 % High 0.0 - 0.0 %NRBC 0.0 % 0.0 - 0.0 #Neut 4.40 10^3/uL 2.00 - 6.90 #Lymph 0.83 10^3/uL 0.60 - 3.40 #[place] 2.95 10^3/uL High 0.00 - 0.90 #Eos 0.08 10^3/uL 0.00 - 0.70 #Baso 0.02 10^3/uL 0.00 - 0.20 #Ig 0.19 10^3/uL High 0.00 - 0.10 #NRBC 0.00 10^3/uL 0.00 - 0.00 Manual Diff SEE BELOW Segs 33 % Low 37 - 80 Band 13 % High 0 - 5 %Lymph 15 % Low 25 - 40 %[place] 39 % High 3 - 8 RBC [...] Little GFR Left ESRD GFR <15 on RAIL FILLER 2 THE CA 19-9 ASSAY IS PERFORM ED ON THE [employer] BY CHEMILUMINESCENCE AND SHOULD NOT BE COMPARED [...] for Pathology Reference Lab Testing. Refer to [facility] Pathology Report for Results:[id number] See Pathology Report Specimen Collection for Pathology Reference Lab Testing. Refer to [facility] Pathology Report for Results: [id number] Units are mL/min/1.73 m2 Chronic Kidney Disease Staging per NKF: Stage I & II GFR >=60 Normal to Mildly Decreased Stage III GFR 30-59 Moderately Decreased Stage IV GFR 15-29 Severely Decreased Stage V GFR <15 Very Little GFR Left ESRD GFR <15 on RAIL FILLER 8 THE CA 19-9 ASSAY IS PERFORM ED ON THE [employer] BY CHEMILUMINESCENCE AND SHOULD NOT BE COMPARED [...] Little GFR Left ESRD GFR <15 on RAIL FILLER 11 DIAGNOSIS CRITERIA MMB ng/ml Relative Index (RI) NON-AMI < or = 5 N/A PRINCE ZONE > 5 < or = 4 AMI > 5 > 4 12 Troponin I Reference Interva l for Siemens [place] LOCI: 99th Percentile= 0.00-0.045 ng/ml Risk Stratification: [...] pathogens. DISCLAIMER: Testing was performed using the Moglue SARS-CoV-2 test. This test was developed and [...] Administration under the Emergency Use Authorization (EUA). [facility] and [facility] are designated as high complexity laboratories by [...] Little GFR Left ESRD GFR <15 on RAIL FILLER 22 THE CA 19-9 ASSAY IS PERFORM ED ON THE ROL[place] [employer] BY CHEMILUMINESCENCE AND SHOULD NOT BE COMPARED [...] Little GFR Left ESRD GFR <15 on RAIL FILLER 25 A Pathologist review of this differential [...] Little GFR Left ESRD GFR <15 on RAIL FILLER 31 NORMAL RANGES Age WBC RBC HGB [...] HCT IS 5% LESS SOURCE FOR DATA: [employer] 1800 OPERATION MANUAL( AUTOMATED BLOOD COUNTS AND [...] disease. Procedures Date Code Description Status 11/17/2020 68170 Office/Outpatient Established Mo d MDM 30-39 Min Completed 07/29/2020 85888 Office/Outpatient Established Mo d MDM 30-39 Min Completed 06/29/2020 69782 Office/Outpatient Established Mo d MDM 30-39 Min Completed Medical Devices Description No Information Available Encounters Type Date Location Provider Dx Diagnosis Office Visit 11/17/2020 11:15a [place] [facility] Homero Sanchez M. D. C25.1 Malignant neoplasm of body of pancreas Z95.2 Presence of prosthetic heart valve Office Visit 07/29/2020 1:30p [place] [facility] Homero Sanchez M. D. C25.1 Malignant neoplasm of body of pancreas Office Visit 06/29/2020 3:40p [place] [facility] Homero Sanchez M. D. 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 09/04/2020 R73.01 Impaired fasting glucose Homero Da Silva M.D. 09/04/2020 R73.01 [facility]aired [facility] Schedule 09/04/2020 E78.2 Mixed hyperlipidemia John Sanchez M.D. 09/04/2020 E78.2 Mixed hyperlipidemia [facility] Schedule 07/29/2020 C25.1 Malignant neoplasm of body of pa Homero Earl M.D. 06/29/2020 C25.1 Malignant neoplasm of body of pa Homero Earl M.D. Plan of Treatment No Information Available Functional Status Description No Information Available Mental Status Description No Information Available Referrals Refer to Dr Reason for Referral Status Appt Date [facility] Oncology & Hematology pancreatic mass- eval and rx , MRCP and CA19-9 pending Sent 07/27/2020 [address] [place] [address]
--- OUTSIDE RECORDS SUMMARY | 2021-01-23 15:31 | CCD ---
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 confirmed 4342793380416 Problem Malignant neoplasm of pancreas, unspecified loca tion of malignancy C25.9 Active confirmed 985140306 Problem Leukocytosis, unspecified type D72.829 Active confi rmed 083455176 ALLERGIES Allergen (clinical drug ingredient) Drug/Non Drug Allergy do cumented on EMR Reaction Allergy Type Onset Date Status Penicillin (For Allergies Use Only) unknown by patient Tom francisco Allergy Active ENCOUNTERS from 1940 to 2020-11-19 Encounter Location Date Provider Diagnosis [address] [phone] [place] [address] Nov, Moses Sena IMMUNIZATIONS No Information SOCIAL HISTORY Sex Assigned At : Social History Observation Description Sex Assigned At Unknown Education: Question Answer Notes Level of Education: Not Finished College Language: Question Answer Notes Languages spoken: Niuean Yarsanism: Question Answer Notes Yarsanism 08 Sabianist REASON FOR REFERRAL No Information VITAL SIGNS [...] Information RESULTS No Results REASON FOR VISIT question MEDICAL (GENERAL) HISTORY Type Description Date Medical [...] Provider Name:Moses Sena, 09-2 8 09:30:00 AM, [address] [place] [address], , [place], [place], [facility], Insurance Providers Payer Name Payer Address Payer Phone Insured Name Patient Relati onship to Insured Coverage Start Date Coverage End Date R [facility] [address] [address] [facility] [phone] CON[employer]ANTIN BRIONES self MEDICARE Part A and B [address] [facility] [phone] CONSTANTIN BRIONES self
--- OUTSIDE RECORDS SUMMARY | 2021-01-23 15:31 | CCD ---
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 confirmed 3567954328305 Problem Malignant neoplasm of pancreas, unspecified loca tion of malignancy C25.9 Active confirmed 601280706 Problem Leukocytosis, unspecified type D72.829 Active confi rmed 817286102 ALLERGIES Allergen (clinical drug ingredient) Drug/Non Drug Allergy do cumented on EMR Reaction Allergy Type Onset Date Status Penicillin (For Allergies Use Only) unknown by patient Tom francisco Allergy Active ENCOUNTERS from 1940 to 2020-11-16 Encounter Location Date Provider Diagnosis [address] [phone] [place] [address] Nov, Moses Sena MSSA (methicillin susceptibl e Staphylococcus aureus) A49.01 IMMUNIZATIONS No Information SOCIAL HISTORY Sex Assigned At : Social History Observation Description Sex Assigned At Unknown Education: Question Answer Notes Level of Education: Not Finished College Language: Question Answer Notes Languages spoken: Azeri Confucianism: Question Answer Notes Confucianism 08 Cheondoism REASON FOR REFERRAL No Information VITAL SIGNS [...] Information RESULTS No Results REASON FOR VISIT Infusion MEDICAL (GENERAL) HISTORY Type Description Date Medical [...] susceptibl e Staphylococcus aureus) (ICD-10 - A49.01) PLAN OF TREATMENT Medication Medication Name Sig Start Date Stop Date Aspir-Low 81 MG 1 tablet Orally Once a day Probiotic - as directed Orally ceFAZolin Sodium 2 GM/20ML as directed Intravenous q 8 Vitamin D 50 MCG (1999) 1 capsule Orally Once a day Multivitamin - 1 tablet Orally Once a day Next Appt Details Provider Name:Moses Terell Yeboahah, 2020-11- 8 09:30:00 AM, [address] [place] [address], [place], [place], [facility], Insurance Providers Payer Name Payer Address Payer Phone Insured Name Patient Relati onship to Insured Coverage Start Date Coverage End Date MEDICARE Part A and B [address] [facility] [id number] CONST[employer]IN BRIONES self IRA [facility] [address] [facility] [phone] CON[employer]ANTIN BRIONES
--- OUTSIDE RECORDS SUMMARY | 2021-01-23 15:31 | CCD | Continuity of Care Document ---
Author Author Trace SANCHEZ M.D. Organization Unknown Address [address] [address] Phone [phone] Care Team Providers Care Pipe Line Walker Name Role Phone NeftaliMalik Kasandra [facility] [phone] Problems Active Problems Provider Date Urolith Homero [...] CPT Code Status Date Vaccine Lot # 20059 Given 07/29/2015 Prevnar 13 Pneum o. Conj Ped. Vaccine 13 Valent (PCV13) For Im Use 34677 Given 07/24/2014 Zoster (Shingles) Vaccine 06703 Refused 02/22/2019 Influenza Virus Vaccine, Quadrivalent, Slit Virus, Im Use 3Y & Up 08867 Refused 02/13/2018 Influenza Virus Vaccine, Quadrivalent, Slit Virus, Im Use 3Y & Up 02444 Refused 02/03/2016 Influenza Virus Vaccine, Quadrivalent, Slit Virus, Im Use 3Y & Up Vital Signs Date Vital Result Comment 11/17/2020 11:02am BP Systolic 118 mmHg BP Diastolic 72 mmHg Body Temperature 98.1 F Heart Rate 76 /min Respiratory Rate 12 /min Height 68 inches 5'8" Weight 132.00 lb [place] Body Weight 154 lb BMI (Body Mass Index) 20.1 kg/m2 O2 % BldC Oximetry 94 % 07/29/2020 2:17pm BP Systolic 120 mmHg BP Diastolic 78 mmHg Body Temperature 97.9 F Heart Rate 50 /min Respiratory Rate 14 /min Height 68 inches 5'8" Weight 140.00 lb [place] Body Weight 154 lb BMI (Body Mass Index) 21.3 kg/m2 O2 % BldC Oximetry 95 % Results Test Acquired Date Facility Test Result H/L Range Note Comprehensive Metabolic Profil 11/06/2020 [facility] (Interface) [phone] Glucose, Fasting 133 mg/dL High 70-100 Blood Urea Nitrogen 16 mg/dL Normal 7-18 Creatinine For GFR 0.71 mg/dL Normal 0.70-1.30 Glomerular Filtration Rate > 60.0 Normal >35 1 Sodium Level 139 mEq/L Normal 136-145 [...] Ratio 1.0 Normal Laboratory test finding 11/06/2020 [facility] (Interface) [phone] Ca19-9 Tumor Marker,Carbohydra 6514.9 U/ML High <35.0 2 CBC With Auto Differential OB 11/06/2020 [facility] (Interface) [phone] White Blood Count 38.5 10 Critical high [...] 36.0-66.0 Lymph % 4.1 % Low 24.0-44.0 Wright % 21.0 % High 2.0-8.0 Eos % 0.1 % Normal 0.0-3.0 Baso % 0.7 % Normal 0.0-1.0 Immature Granulocyte % 11.4 % High 0-3.0 Nucleated Red Blood Cell % 0.0 % Normal 0-0 Neutrophils # 24.2 10 High 1.5-8.5 Lymph # 1.6 10 Normal 1.5-5.0 Wright # 8.1 10 High 0.0-0.8 Eos # 0.0 10 Normal 0.0-0.5 Baso # 0.3 10 High 0.0-0.2 Basic Metabolic Profile 10/23/2020 [facility] (Interface) [phone] Glucose, Fasting 215 mg/dL High 70-100 Blood Urea Nitrogen 15 mg/dL Normal 7-18 Creatinine For GFR 1.13 mg/dL Normal 0.70-1.30 Glomerular Filtration Rate > 60.0 Normal >35 3 Sodium Level 137 mEq/L Normal 136-145 Potassium Serum 3.6 mEq/L Normal 3.5-5.1 Chloride Level 102 mEq/L Normal 98-107 Carbon Dioxide Level 24 mEq/L Normal 21-32 Anion Gap 11 mEq/L Normal 8-16 Calcium Level 8.7 mg/dL Low 8.8-10.2 Istat Chem8+ Panel 10/23/2020 [facility]) [phone] iSTAT HCT 40.0 % Normal 38.0-51.0 iSTAT Glucose 232 mg/dL High 70-105 iSTAT Sodium 136 mEq/L Normal 136-145 iSTAT Potassium 3.6 mEq/L Normal 3.5-5.1 iSTAT CA++ 4.4 mg/dL Low 4.5-5.3 iSTAT Chloride 98 mEq/L Normal 98-109 iSTAT Co2 20.0 MM/L Low 23.0-27.0 iSTAT BUN 15 mg/dL Normal 8-26 iSTAT Creatinine 0.9 mg/dL Normal 0.6-1.3 Laboratory test finding 10/23/2020 [facility] (Interface) [phone] Platelet Estimate DECREASED Normal Normal Immature Platelet Fraction 7.1 % Normal 0.0-10.91 Differential 10/23/2020 [facility]) [phone] Neutrophils 84 % High 28-66 Bands 6 % Normal < 11 Lymphocytes 2 % Low 16-44 Monocytes 8 % High 0-5 RBC Morphology NORMAL Normal CBC With Differential 10/23/2020 [facility] (Interface) [phone] White Blood Count 23.5 10 High 4.0-10.0 4 Red Blood Count 4.14 10 Low 4.30-6.10 [...] % High 0-0 Laboratory test finding 10/23/2020 [facility] (Interface) [phone] NT-Pro BNP 2080 pg/mL High <450 Liver Profile 10/23/2020 [facility] (I nterface) [phone] Ast/Sgot 13 U/L Normal 7-37 Alt/SGPT 17 U/L Normal 12-78 Alkaline Phosphatase 132 U/L High 45-117 Bilirubin,Total 0.9 mg/dL Normal 0.2-1.0 Bilirubin,Direct 0.4 mg/dL High 0.0-0.2 Total Protein 5.9 GM/DL Low 6.4-8.2 Albumin 3.3 GM/DL Normal 3.2-5.2 Albumin/Globulin Ratio 1.3 Normal Cardiac Marker Panel 10/23/2020 [facility] ( Interface) [phone] CPK Creatine Phosphokinase 24 U/L Low 39-30 8 CK-MB Value Mass < 1.0 NG/ML Normal <3.6 MB/CK Relative Index 4.17 High < Or =4 5 Troponin I 0.15 NG/ML High < 0.10 6 Laboratory test finding 10/23/2020 [facility] (Interface) [phone] Partial Thromboplastin Time 30.9 seconds Normal 25 .9-37.0 Prothrombin Time/Inr 10/23/2020 [facility] ( Interface) [phone] Prothrombin Time 15.9 seconds High 12.7-14.5 Inr 1.23 Normal 7 Influenxa A/B RSV Covid Amp 10/23/2020 [facility] (Interface) [phone] Influenza A Amplification NEGATIVE Normal Negati ve 8 Influenza B Amplification NEGATIVE Normal Negative 9 RSV Amplification NEGATIVE Normal Negative 10 Sars Covid-19 Amplification NEGATIVE Normal Negative 11 Laboratory test finding 10/23/2020 [facility] (Interface) [phone] Lactic Acid Sepsis Protocol 3.0 mmol/L Critical high 0 .4-2.0 12 Coronavirus 2019 Nasopharygeal 10/15/2020 [facility] (Interface) [phone] Coronavirus 2019 Nasopharygeal ASSAY INFORMATIO <SEE N OTE> 13 CBC With Auto Differential OB 10/08/2020 [facility] (Interface) [phone] White Blood Count 9.8 10 Normal 4.0-10.0 14 Red Blood Count 4.82 10 Normal 4.30-6.10 [...] 36.0-66.0 Lymph % 8.1 % Low 24.0-44.0 Wright % 34.9 % High 2.0-8.0 Eos % 1.0 % Normal 0.0-3.0 Baso % 0.3 % Normal 0.0-1.0 Immature Granulocyte % 2.5 % Normal 0-3.0 Nucleated Red Blood Cell % 0.0 % Normal 0-0 Neutrophils # 5.2 10 Normal 1.5-8.5 Lymph # 0.8 10 Low 1.5-5.0 Wright # 3.4 10 High 0.0-0.8 Eos # 0.1 10 Normal 0.0-0.5 Baso # 0.0 10 Normal 0.0-0.2 Laboratory test finding 10/08/2020 [facility] (Interface) [phone] Ca19-9 Tumor Marker,Carbohydra 6310.2 U/ML High <35.0 15 Comprehensive Metabolic Profil 10/08/2020 [facility] (Interface) [phone] Glucose, Fasting 131 mg/dL High 70-100 Blood Urea Nitrogen 15 mg/dL Normal 7-18 Creatinine For GFR 0.73 mg/dL Normal 0.70-1.30 Glomerular Filtration Rate > 60.0 Normal >35 1 6 Sodium Level 139 mEq/L Normal 136-145 [...] Ratio 1.8 Normal Laboratory test finding 09/25/2020 [facility] (Interface) [phone] Ca19-9 Tumor Marker,Carbohydra 5746.2 U/ML High <35.0 17 CBC With Auto Differential OB 09/18/2020 [facility]) [phone] White Blood Count 8.0 10 Normal 4.0-10.0 18 Red Blood Count 4.52 10 Normal 4.30-6.10 [...] 36.0-66.0 Lymph % 10.8 % Low 24.0-44.0 Wright % 37.8 % High 2.0-8.0 Eos % 1.8 % Normal 0.0-3.0 Baso % 0.3 % Normal 0.0-1.0 Immature Granulocyte % 2.3 % Normal 0-3.0 Nucleated Red Blood Cell % 0.0 % Normal 0-0 Neutrophils # 3.8 10 Normal 1.5-8.5 Lymph # 0.9 10 Low 1.5-5.0 Wright # 3.0 10 High 0.0-0.8 Eos # 0.1 10 Normal 0.0-0.5 Baso # 0.0 10 Normal 0.0-0.2 Comprehensive Metabolic Profil 09/18/2020 [facility]) [phone] Glucose, Fasting 120 mg/dL High 70-100 Blood Urea Nitrogen 13 mg/dL Normal 7-18 Creatinine For GFR 0.74 mg/dL Normal 0.70-1.30 Glomerular Filtration Rate > 60.0 Normal >35 1 9 Sodium Level 140 mEq/L Normal 136-145 [...] Ratio 1.7 Normal Laboratory test finding 09/04/2020 [facility] [place] A1c 6.1 % 4.50-6.20 CMP 09/04/2020 [facility] Glu 128 mg/dL High 70 - 110 20 BUN 16 mg/dL 8 - 23 Creat [...] Gap 16 mmol/L eGFR 103 # Calc 21 eGFR Non-Afr. Jordanian 89 # Calc 22 Lipid Panel 09/04/2020 [facility] Chol 171 mg/dL 0 - 200 Trig 58 mg/dL 35 - 200 HDL 53 mg/dL 35 - 55 LDL_C 106 Calc 75 - 129 Cho/HDL Ratio 3.2 CALC CBC With Auto Differential OB 08/31/2020 [facility]) [phone] White Blood Count 9.6 10 Normal 4.0-10.0 23 Red Blood Count [...] 36.0-66.0 Lymph % 6.8 % Low 24.0-44.0 Wright % 37.0 % High 2.0-8.0 Eos % 0.8 % Normal 0.0-3.0 Baso % 0.2 % Normal 0.0-1.0 Immature Granulocyte % 1.6 % Normal 0-3.0 Nucleated Red Blood Cell % 0.0 % Normal 0-0 Neutrophils # 5.2 10 Normal 1.5-8.5 Lymph # 0.7 10 Low 1.5-5.0 Wright # 3.6 10 High 0.0-0.8 Eos # 0.1 10 Normal 0.0-0.5 Baso # 0.0 10 Normal 0.0-0.2 Comprehensive Metabolic Profil 08/31/2020 [facility] ([facility]) [phone] Glucose, Fasting 136 mg/dL High 70-100 Blood Urea Nitrogen 18 mg/dL Normal 7-18 Creatinine For GFR 0.86 mg/dL Normal 0.70-1.30 Glomerular Filtration Rate > 60.0 Normal >35 2 4 Sodium Level 139 mEq/L Normal 136-145 [...] Glu 147 mg/dL High 70 - 110 25 BUN 14 mg/dL 8 - 23 Creat [...] Gap 19 mmol/L eGFR 97 # Calc 26 eGFR Non-Afr. Jordanian 84 # Calc 27 CBC W/Automated Diff 06/30/2020 [place] [address] [phone] CBC W/Automated Diff (SEE NOTE) 28 WBC 8.5 10^3/uL 4.2 - 11.0 RBC [...] Lymph 9.8 % Low 25.0 - 40.0 Wright 34.8 % High 3.0 - 8.0 Eos 0.9 % 0.0 - 7.0 Baso 0.2 % 0.0 - 2.0 %Ig 2.2 % High 0.0 - 0.0 %NRBC 0.0 % 0.0 - 0.0 #Neut 4.40 10^3/uL 2.00 - 6.90 #Lymph 0.83 10^3/uL 0.60 - 3.40 #Wright 2.95 10^3/uL High 0.00 - 0.90 #Eos 0.08 10^3/uL 0.00 - 0.70 #Baso 0.02 10^3/uL 0.00 - 0.20 #Ig 0.19 10^3/uL High 0.00 - 0.10 #NRBC 0.00 10^3/uL 0.00 - 0.00 Manual Diff SEE BELOW Segs 33 % Low 37 - 80 Band 13 % High 0 - 5 %Lymph 15 % Low 25 - 40 %Wright 39 % High 3 - 8 RBC Morph MORPH IS NORMAL Carbohydrate Ag 19-9 (Serial) 06/29/2020 [facility] [place] CA 19-9 1079 U/mL High 0-35 29 PDF . Laboratory test finding 06/29/2020 [facility] [place] Amylase 22 U/L Low 31-110 Lipase 16 U/L 13-78 1 Units are mL/min/1.73 m2 Chronic Kidney Disease Staging per NKF: Stage I & II GFR >=60 Normal to Mildly Decreased Stage III GFR 30-59 Moderately Decreased Stage IV GFR 15-29 Severely Decreased Stage V GFR <15 Very Little GFR Left ESRD GFR <15 on COMMUNITY HEALTH NURSING DIRECTOR 2 THE CA 19-9 ASSAY IS PERFORM ED ON THE Room n House BY CHEMILUMINESCENCE AND SHOULD NOT BE COMPARED [...] Little GFR Left ESRD GFR <15 on COMMUNITY HEALTH NURSING DIRECTOR 4 A Pathologist review of this differential can help in the evaluation of a differential diagnosis. Please order a Pathologist Review (PERISM) if deemed necessary. Results are subject to change if a Pathologist Review is performed. 5 DIAGNOSIS CRITERIA MMB ng/ml Relative Index (RI) NON-AMI < or = 5 N/A PRINCE ZONE > 5 < or = 4 AMI > 5 > 4 6 Troponin I Reference Interva l for Siemens [place] LOCI: 99th Percentile= 0.00-0.045 ng/ml Risk Stratification: <= 0.10 ng/ml Decreased Risk for Adverse Clinical Events. 0.10-1.50 ng/ml Increased Risk for Adv erse Clinical Events. Evaluation of additional criterion and/or repeat testing in 2-6 hours is suggested to rule out myocardial damage. >= 1.50 ng/ml Indicative of Myocardial Injury. 7 THERAPUTIC HUMAN INR VALUES INDICATIONS NORMAL RANGES PROPHYLAXIS/TREATMENT OF: VENOUS THROMBOSIS 2.0-3.0 PULMONARY EMBOLISM 2.0-3.0 PREVENTION OF SYSTEMIC EMBOLISM FROM: TISSUE HEART VALVES 2.0-3.0 ACUTE MYOCARDIAL INFARCTION 2.0-3.0 VALVULAR HEART DISEASE 2.0-3.0 ATRIAL FIBRILLATION 2.0-3.0 MECHANICAL VALVES(HIGH RISK) 2.5-3.5 RECURRENT MYOCARDIAL INFARCTION 2.5-3.5 8 Negative results do not prec lude influenza or RSV virus infection and should not be used as the sole basis for treatment or other patient management decisions. 9 Negative results do not prec lude influenza or RSV virus infection and should not be used as the sole basis for treatment or other patient management decisions. 10 Negative results do not prec lude influenza or RSV virus infection and should not be used as the sole basis for treatment or other patient management decisions. 11 A false negative result may occur if [...] pathogens. DISCLAIMER: Testing was performed using the [facility] SARS-CoV-2 test. This test was developed and its performance characteristics determined by [facility]. This test has not been FDA cleared [...] the authorization is terminated or revoked sooner. 12 Y/N query for Sepsis Lactate Rule: Y 13 ASSAY INFORMATION: Real Time RT-PCR NOTE: The COVID-19 assay has been cleared by the U.S. Food and Drug Administration under the Emergency Use Authorization (EUA). [facility] and [facility] are designated as high complexity laboratories by the Clinical Laboratory Improvement Amendments of 1988(CLIA) and are qualified to perform this test. Not Detected 14 A Pathologist review of this differential can help in the evaluation of a differential diagnosis. Please order a Pathologist Review (PERISM) if deemed necessary. Results are subject to change if a Pathologist Review is performed. 15 THE CA 19-9 ASSAY IS PERFORM ED ON THE [facility] BY CHEMILUMINESCENCE AND SHOULD NOT BE COMPARED INTERCHANGEABLY WITH OTHER METHODS. IT SHOULD NOT BE USED ALONE A SCREENING TEST OR DIAGNOSIS FOR THE PRESENCE OR ABSENCE OF MALIGNANT DISEASE. PREDICTIONS OF DISEASE RECURRENCE SHOULD NOT BE BASED SOLELY ON VALUES OBTAINED FROM SERIAL PATIENT SERUM VALUES. 16 Units are mL/min/1.73 m2 Chronic Kidney Disease Staging per NKF: Stage I & II GFR >=60 Normal to Mildly Decreased Stage III GFR 30-59 Moderately Decreased Stage IV GFR 15-29 Severely Decreased Stage V GFR <15 Very Little GFR Left ESRD GFR <15 on [facility]UNITY HEALTH NURSING DIRECTOR 17 THE CA 19-9 ASSAY IS PERFORM ED ON THE [facility] BY CHEMILUMINESCENCE AND SHOULD NOT BE COMPARED INTERCHANGEABLY WITH OTHER METHODS. IT SHOULD NOT BE USED ALONE A SCREENING TEST OR DIAGNOSIS FOR THE PRESENCE OR ABSENCE OF MALIGNANT DISEASE. PREDICTIONS OF DISEASE RECURRENCE SHOULD NOT BE BASED SOLELY ON VALUES OBTAINED FROM SERIAL PATIENT SERUM VALUES. 18 A Pathologist review of this differential [...] Little GFR Left ESRD GFR <15 on COMMUNITY HEALTH NURSING DIRECTOR 20 CHRONIC KIDNEY DISEASE STAGI NG PER NKF: [...] ADOLESCENTS REPRESENTS INDIVIDUALA AGED 2-19 YEARS EXCLUSIVE. 21 CKD-EPI 22 CKD-EPI 23 A Pathologist review of this differential can help in the evaluation of a differential diagnosis. Please order a Pathologist Review (PERISM) if deemed necessary. Results are subject to change if a Pathologist Review is performed. 24 Units are mL/min/1.73 m2 Chronic Kidney Disease Staging per NKF: Stage I & II GFR >=60 Normal to Mildly Decreased Stage III GFR 30-59 Moderately Decreased Stage IV GFR 15-29 Severely Decreased Stage V GFR <15 Very Little GFR Left ESRD GFR <15 on COMMUNITY HEALTH NURSING DIRECTOR 25 NORMAL RANGES Age WBC RBC HGB HCT [...] HCT IS 5% LESS SOURCE FOR DATA: [employer] 1800 OPERATION MANUAL( AUTOMATED BLOOD COUNTS AND [...] Normal 80 and above >32 mL/min Normal 26 CKD-EPI 27 CKD-EPI 28 COMPLETE BLOOD COUNT 29 makeena Electroche miluminescence Immunoassay (ECLIA) Values obtained with different assay methods or kits cannot be used interchangeably. Results cannot be interpreted as absolute evidence of the presence or absence of malignant disease. Procedures Date Code Description Status 11/17/2020 72942 Office/Outpatient Established Mo d MDM 30-39 Min Completed 07/29/2020 51450 Office/Outpatient Established Mo d MDM 30-39 Min Completed 06/29/2020 99680 Office/Outpatient Established Mo d MDM 30-39 Min Completed Medical Devices Description No Information Available Encounters Type Date Location Provider Dx Diagnosis Office Visit 11/17/2020 11:15a [place] [facility] Homero Sanchez M. D. 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 D. C25.1 Malignant neoplasm of body of pancreas Office Visit 06/29/2020 3:40p [place] [facility] Homero Sanchez M. D. 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 09/04/2020 R73.01 Impaired fasting glucose Homero Da Silva M.D. 09/04/2020 R73.01 Impaired fasting glucose [facility] Schedule 09/04/2020 E78.2 Mixed hyperlipidemia oJhn Sanchez M.D. 09/04/2020 E78.2 Mixed hyperlipidemia [facility] Schedule 07/29/2020 C25.1 Malignant neoplasm of body of pa Homero Earl M.D. 06/29/2020 C25.1 Malignant neoplasm of body of pa Homero Earl M.D. Plan of Treatment No Information Available Functional Status Description No Information Available Mental Status Description No Information Available Referrals Refer to Dr Reason for Referral Status Appt Date [facility] Oncology & Hematology pancreatic mass- eval and rx , MRCP and CA19-9 pending Sent 07/27/2020 [address] [place] [address]
--- OUTSIDE RECORDS SUMMARY | 2021-01-23 15:31 | CCD | Summary of Care ---
Author Author [facility] Organization [facility] Address Unknown Phone Unavailable Care Team Providers Care Home Health Clinician Name Role Phone Homero Sanchez MD PCP Encounter Details Care Team Description Date Type Department 11/10/2020 [facility] Clinical Encounter Pathology at [address] [address] Allergies Not on Filedocumented as of this encounter (statuses as of 11/11/2020) Medications Not on filedocumented as of this encounter (statuses as of 11/11/2020) Active Problems Not on filedocumented as of this encounter (statuses as of 11/11/2020) Immunizations Name Administration Dates Next Due documented as of this encounter Social History Date Tobacco Use Types Packs/Day Years Used Never Assessed Sex Assigned at Date Recorded Not on file documented as of this encounter Last Filed Vital Signs Not on filedocumented in this encounter Plan of Treatment Date/Time Name Type Priority Associated Diag noses 11/10/2020 3:03 PM EDT [facility] Oncology, Pathology and Routine Blood and Bone Marrow Cytology Order Schedule Name Type Priority Associated Diag noses Once for 1 Occurrences starting 11/11/19 21 until 11/10/2020 [facility] On[facility], Pathology and Routine Blood and Bone Marrow Cytology Health Maintenance Due Date Last Done Comments MMR Vaccines (1 of 1 - 1940 Standard series) Varicella Vaccines (1 of 1941 2 - 2-dose childhood series) DTaP,Tdap,and Td Vaccines 1946 (1 - Tdap) Zoster Vaccines (1 of 2) 1989 Pneumococcal Vaccine: 65+ 2004 Years (1 of 1 - PPSV23) Influenza Vaccine 12/04/2020 11/12/2019, 12/12/2017 COVID-19 Vaccine Completed 07/06/2020, 06/04/2020 HIB Vaccines Aged Out No longer eligible based on patient's age to complete this topic Hepatitis A Vaccines Aged Out No longer eligibl e based on patient's age to complete this topic Hepatitis B Vaccines Aged Out No longer eligibl e based on patient's age to complete this topic IPV Vaccines Aged Out No longer eligible based on patient's age to complete this topic Pneumococcal Vaccine: Aged Out No longer eligib le based on patient's age to Pediatrics (0 to 5 Years) complete this topic and At-Risk Patients (6 to 64 Years) documented as of this encounter Results Not on filedocumented in this encounter
--- OUTSIDE RECORDS SUMMARY | 2021-01-23 15:32 | CCD ---
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 Name Role Phone Jason Zaragoza MD Unavailable Unavailable Jason Zaragoza MD Unavailable Unavailable Jason Zaragoza MD Unavailable Unavailable Jason Zaragoza MD Unavailable Unavailable Jason Zaragoza MD Unavailable Unavailable Jason Zaragoza MD Unavailable Unavailable Lamar, Jose DO Unavailable Unavailable Sun, Jose DO Unavailable Unavailable Sun, Jose DO Unavailable Unavailable Sun, Jose DO Unavailable Unavailable Lamar, Jose DO Unavailable Unavailable Lamar, Jose DO Unavailable Unavailable Lamar, Jose DO Unavailable Unavailable Lamar, Jose DO Unavailable Unavailable Lamar, Jose DO Unavailable Unavailable Sun, Jose DO Unavailable Unavailable Sun, Jose DO Unavailable Unavailable Sun, Jose DO Unavailable Unavailable Sun, Jose DO Unavailable Unavailable Sun, Jose DO Unavailable Unavailable Sun, Jose DO Unavailable Unavailable Sun, Jose DO Unavailable Unavailable Sun, Jose DO Unavailable Unavailable Sun, Jose DO Unavailable Unavailable Sun, Jose DO Unavailable Unavailable Sun, Jose DO Unavailable Unavailable Sun, Jose DO Unavailable Unavailable Sun, Jose DO Unavailable Unavailable Sun, Jose DO Unavailable Unavailable Sun, Jose DO Unavailable Unavailable Sun, Jose DO Unavailable Unavailable Sun, Jose DO Unavailable Unavailable Sun, Jose DO Unavailable Unavailable Sun, Jose DO Unavailable Unavailable Sun, Jose DO Unavailable Unavailable Sun, Jose DO Unavailable Unavailable Sun, Jose DO Unavailable Unavailable Sun, Jose DO Unavailable Unavailable Sun, Jose DO Unavailable Unavailable Sun, Jose DO Unavailable Unavailable Sun, Jose DO Unavailable Unavailable Sun, Jose DO Unavailable Unavailable Sun, Jose DO Unavailable Unavailable Sun, Jose DO Unavailable Unavailable Sun, Jose DO Unavailable Unavailable Sun, Jose DO Unavailable Unavailable Sun, Jose DO Unavailable Unavailable Sun, Jose DO Unavailable Unavailable Sun, Jose DO Unavailable Unavailable Sun, Jose DO Unavailable Unavailable Sun, Jose DO Unavailable Unavailable Sun, Jose DO Unavailable Unavailable Sun, Jose DO Unavailable Unavailable Sun, Jose DO Unavailable Unavailable Sun, Jose DO Unavailable Unavailable Sun, Jose DO Unavailable Unavailable Sun, Jose DO Unavailable Unavailable Sun, Jose DO Unavailable Unavailable Sun, Jose DO Unavailable Unavailable Sun, Jose DO Unavailable Unavailable Sun, Jose DO Unavailable Unavailable Sun, Jose DO Unavailable Unavailable Sun, Jose DO Unavailable Unavailable Sun, Jose DO Unavailable Unavailable Sun, Jose DO Unavailable Unavailable Sun, Jose DO Unavailable Unavailable Sun, Jose DO Unavailable Unavailable Sun, Jose DO Unavailable Unavailable Sun, Jose DO Unavailable Unavailable Sun, Jose DO Unavailable Unavailable Sun, Jose DO Unavailable Unavailable Sun, Jose DO Unavailable Unavailable El-Khally, A Ziad MD Unavailable Unavailable El-Khally, A Ziad MD Unavailable Unavailable El-Khally, A Ziad MD Unavailable Unavailable El-Khally, A Ziad MD Unavailable Unavailable El-Khally, A Ziad MD Unavailable Unavailable El-Khally, A Ziad MD Unavailable Unavailable El-Khally, A Ziad MD Unavailable Unavailable El-Khally, A Ziad MD Unavailable Unavailable El-Khally, A Ziad MD Unavailable Unavailable El-Khally, A Ziad MD Unavailable Unavailable El-Khally, A Ziad MD Unavailable Unavailable El-Khally, A Ziad MD Unavailable Unavailable El-Khally, A Ziad MD Unavailable Unavailable El-Khally, A Ziad MD Unavailable Unavailable El-Khally, A Ziad MD Unavailable Unavailable El-Khally, A Ziad MD Unavailable Unavailable El-Khally, A Ziad MD Unavailable Unavailable El-Khally, A Ziad MD Unavailable Unavailable El-Khally, A Ziad MD Unavailable Unavailable El-Khally, A Ziad MD Unavailable Unavailable El-Khally, A Ziad MD Unavailable Unavailable El-Khally, A Ziad MD Unavailable Unavailable El-Khally, A Ziad MD Unavailable Unavailable El-Khally, A Ziad MD Unavailable Unavailable El-Khally, A Ziad MD Unavailable Unavailable El-Khally, A Ziad MD Unavailable Unavailable El-Khally, A Ziad MD Unavailable Unavailable El-Khally, A Ziad MD Unavailable Unavailable El-Khally, A Ziad MD Unavailable Unavailable El-Khally, A Ziad MD Unavailable Unavailable El-Khally, A Ziad MD Unavailable Unavailable El-Khally, A Ziad MD Unavailable Unavailable El-Khally, A Ziad MD Unavailable Unavailable El-Khally, A Ziad MD Unavailable Unavailable El-Khally, A Ziad MD Unavailable Unavailable El-Khally, A Ziad MD Unavailable Unavailable El-Khally, A Ziad MD Unavailable Unavailable El-Khally, A Ziad MD Unavailable Unavailable El-Khally, A Ziad MD Unavailable Unavailable El-Khally, A Ziad MD Unavailable Unavailable El-Khally, A Ziad MD Unavailable Unavailable El-Khally, A Ziad MD Unavailable Unavailable El-Khally, A Ziad MD Unavailable Unavailable Betty, Hira MD Unavailable Unavailable Betty, Hira SERRANO Unavailable Unavailable Betty, Hira SERRANO Unavailable Unavailable Betty, Hira SERRANO Unavailable Unavailable Betty, Hira SERRANO Unavailable Unavailable Betty, Hira SERRANO Unavailable Unavailable Betty, Hira SERRANO Unavailable Unavailable Betty, Hira SERRANO Unavailable Unavailable Betty, Hira SERRANO Unavailable Unavailable Betty, Hira MD Unavailable Unavailable Betty, Hira MD Unavailable Unavailable Betty, Hira MD Unavailable Unavailable Justin, A Kevin Unavailable Unavailable Justin, A Kevin Unavailable Unavailable Alisia MEYER MD Unavailable Unavailable Alisia MEYER MD Unavailable Unavailable Alisia MEYER MD Unavailable Unavailable Alisia MEYER MD Unavailable Unavailable Alisia MEYER MD Unavailable Unavailable Alisia MEYER MD Unavailable Unavailable Alisia MEYER MD Unavailable Unavailable Alisia MEYER MD Unavailable Unavailable Alisia MEYER MD Unavailable Unavailable Alisia MEYER MD Unavailable Unavailable Alisia MEYER MD Unavailable Unavailable Alisia MEYER MD Unavailable Unavailable Alisia MEYER MD Unavailable Unavailable Alisia MEYER MD Unavailable Unavailable Alisia MEYER MD Unavailable Unavailable Alisia MEYER MD Unavailable Unavailable Alisia MEYER MD Unavailable Unavailable Alisia MEYER MD Unavailable Unavailable Alisia MEYER MD Unavailable Unavailable Alisia MEYER MD Unavailable Unavailable Alisia MEYER MD Unavailable Unavailable Alisia MEYER MD Unavailable Unavailable Alisia MEYER MD Unavailable Unavailable Alisia MEYER MD Unavailable Unavailable Alisia MEYER MD Unavailable Unavailable Alisia MEYER MD Unavailable Unavailable Alisia MEYER MD Unavailable Unavailable Alisia MEYER MD Unavailable Unavailable Alisia MEYER MD Unavailable Unavailable Alisia MEYER MD Unavailable Unavailable Alisia MEYER MD Unavailable Unavailable Alisia MEYER MD Unavailable Unavailable Alisia MEYER MD Unavailable Unavailable Alisia MEYER MD Unavailable Unavailable MITCH, H CHERYL MD Unavailable Unavailable MITCH, H CHERYL MD Unavailable Unavailable MITCH, H CHERYL MD Unavailable Unavailable MITCH, H CHERYL MD Unavailable Unavailable MITCH, H CHERYL MD Unavailable Unavailable MITCH, H CHERYL MD Unavailable Unavailable MITCH, H CHERYL MD Unavailable Unavailable MITCH, H CHERYL MD Unavailable Unavailable MITCH, H CHERYL MD Unavailable Unavailable MITCH, H CHERYL MD Unavailable Unavailable MITCH, H CHERYL MD Unavailable Unavailable MITCH, H CHERYL MD Unavailable Unavailable MITCH, H CHERYL MD Unavailable Unavailable MITCH, H CHERYL MD Unavailable Unavailable MITCH, H CHERYL MD Unavailable Unavailable MITCH, H CHERYL MD Unavailable Unavailable MITCH, H CHERYL MD Unavailable Unavailable MITCH, H CHERYL MD Unavailable Unavailable MITCH, H CHERYL MD Unavailable Unavailable MITCH, H CHERYL MD Unavailable Unavailable MITCH, H CHERYL MD Unavailable Unavailable MITCH, H HCERYL MD Unavailable Unavailable MITCH, H CHERYL MD Unavailable Unavailable MITCH, H CHERYL MD Unavailable Unavailable MITCH, H CHERYL MD Unavailable Unavailable MITCH, H CHERYL MD Unavailable Unavailable MITCH, H CHERYL MD Unavailable Unavailable MITCH, H CHERYL MD Unavailable Unavailable MITCH, H CHERYL MD Unavailable Unavailable MITCH, H CHERYL MD Unavailable Unavailable MITCH, H CHERYL MD Unavailable Unavailable MITCH, H CHERYL MD Unavailable Unavailable MITCH, H CHERYL MD Unavailable Unavailable MITCH, H CHERYL MD Unavailable Unavailable MITCH, H CHERYL MD Unavailable Unavailable MITCH, H CHERYL MD Unavailable Unavailable MITCH, H CHERYL MD Unavailable Unavailable MITCH, H CHERYL MD Unavailable Unavailable MITCH, H CHERYL MD Unavailable Unavailable MITCH, H CHERYL MD Unavailable Unavailable MITCH, H CHERYL MD Unavailable Unavailable MITCH, H CHERYL MD Unavailable Unavailable MITCH, H CHERYL MD Unavailable Unavailable MITCH, H CHERYL MD Unavailable Unavailable Benedict Carvalho, Mare Serrano MD, FACS Unavailable Unavailable Benedict Carvalho, Mare Serrano MD, FACS Unavailable Unavailable Benedict Carvalho, Mare Serrano MD, FACS Unavailable Unavailable Benedict Carvalho, Mare Serrano MD, FACS Unavailable Unavailable Mcmullen Deven, Mare Serrano MD, FACS Unavailable Unavailable Mcmullen Deven, Mare Serrano MD, FACS Unavailable Unavailable Mcmullen Deven, Mare Serrano MD, FACS Unavailable Unavailable Mcmullen Deven, Mare Serrano MD, FACS Unavailable Unavailable Mcmullen Deven, Mare Serrano MD, FACS Unavailable Unavailable Mcmullen Deven, Mare Serrano MD, FACS Unavailable Unavailable Mcmullen Deven, Mare Serrano MD, FACS Unavailable Unavailable Mcmullen Deven, Mare Serrano MD, FACS Unavailable Unavailable Mcmullen Deven, Mare Serrano MD, FACS Unavailable Unavailable Mcmullen Deven, Mare Serrano MD, FACS Unavailable Unavailable Mcmullen Deven, Mare Serrano MD, FACS Unavailable Unavailable Mcmullen Deven, Mare Serrano MD, FACS Unavailable Unavailable Mcmullen Deven, Mare Serrano MD, FACS Unavailable Unavailable Mcmullen Deven, Mare Serrano MD, FACS Unavailable Unavailable Mcmullen Carvalho, Mare Serrano MD, FACS Unavailable Unavailable Mcmullen [place]vahlo, Mare Serrano MD, FACS Unavailable Unavailable Mcmullen Carvalho, Mare Serrano MD, FACS Unavailable Unavailable Mcmullen Carvalho, Mare Serrano MD, FACS Unavailable Unavailable Mcmullen Carvalho, Mare Serrano MD, FACS Unavailable Unavailable Mcmullen Carvalho, Mare Serrano MD, FACS Unavailable Unavailable Mcmullen Carvalho, Mare Serrano MD, FACS Unavailable Unavailable Mcmullen Carvalho, Mare Serrano MD, FACS Unavailable Unavailable Mcmullen Carvalho, Mare Serrano MD, FACS Unavailable Unavailable Mcmullen Carvalho, Mare Serrano MD, FACS Unavailable Unavailable Mcmullen Carvalho, Mare Serrano MD, FACS Unavailable Unavailable Mcmullen Carvalho, Mare Serrano MD, FACS Unavailable Unavailable Mcmullen Carvalho, Mare Serrano MD, FACS Unavailable Unavailable Mcmullen Carvalho, Mare Serrano MD, FACS Unavailable Unavailable Mcmullen Carvalho, Mare Serrano MD, FACS Unavailable Unavailable Mcmullen Carvalho, Mare Serrano MD, FACS Unavailable Unavailable Mcmullen Carvalho, Mare Serrano MD, FACS Unavailable Unavailable Mcmullen Carvalho, Mare Serrano MD, FACS Unavailable Unavailable Mcmullen Carvalho, Mare Serrano MD, FACS Unavailable Unavailable Mcmullen Carvalho, Mare Serrano MD, FACS Unavailable Unavailable Mcmullen Carvalho, Mare Serrano MD, FACS Unavailable Unavailable Fons, M Shaniqua CROP NUTRITION SCIENTIST Unavailable Unavailable Fons, M Shaniqua CROP NUTRITION SCIENTIST Unavailable Unavailable Fons, M Shaniqua CROP NUTRITION SCIENTIST Unavailable Unavailable Fons, M Shaniqua CROP NUTRITION SCIENTIST Unavailable Unavailable Fons, M Shaniqua CROP NUTRITION SCIENTIST Unavailable Unavailable Fons, M Shaniqua CROP NUTRITION SCIENTIST Unavailable Unavailable Fons, M Shaniqua CROP NUTRITION SCIENTIST Unavailable Unavailable Fons, M Shaniqua CROP NUTRITION SCIENTIST Unavailable Unavailable Fons, M Shaniqua CROP NUTRITION SCIENTIST Unavailable Unavailable Fons, M Shaniqua CROP NUTRITION SCIENTIST Unavailable Unavailable Fons, M Shaniqua CROP NUTRITION SCIENTIST Unavailable Unavailable Fons, M Shaniqua CROP NUTRITION SCIENTIST Unavailable Unavailable Fons, M Shaniqua CROP NUTRITION SCIENTIST Unavailable Unavailable Fons, M Shanqiua CROP NUTRITION SCIENTIST Unavailable Unavailable Fons, M Shaniqua CROP NUTRITION SCIENTIST Unavailable Unavailable Fons, M Shaniqua CROP NUTRITION SCIENTIST Unavailable Unavailable Fons, M Shaniqua CROP NUTRITION SCIENTIST Unavailable Unavailable Fons, M Shaniqua CROP NUTRITION SCIENTIST Unavailable Unavailable Fons, M Shaniqua CROP NUTRITION SCIENTIST Unavailable Unavailable Fons, M Shaniqua CROP NUTRITION SCIENTIST Unavailable Unavailable Fons, M Shaniqua CROP NUTRITION SCIENTIST Unavailable Unavailable Fons, M Shaniqua CROP NUTRITION SCIENTIST Unavailable Unavailable Fons, M Shaniqua CROP NUTRITION SCIENTIST Unavailable Unavailable Fons, M Shaniqua CROP NUTRITION SCIENTIST Unavailable Unavailable Fons, M Shaniqua CROP NUTRITION SCIENTIST Unavailable Unavailable Fons, M Shaniqua CROP NUTRITION SCIENTIST Unavailable Unavailable Fons, M Shaniqua CROP NUTRITION SCIENTIST Unavailable Unavailable Fons, M Shaniqua CROP NUTRITION SCIENTIST Unavailable Unavailable Fons, M Shaniqua CROP NUTRITION SCIENTIST Unavailable Unavailable Fons, M Shaniqua CROP NUTRITION SCIENTIST Unavailable Unavailable Fons, M Shaniqua CROP NUTRITION SCIENTIST Unavailable Unavailable Fons, M Shaniqua CROP NUTRITION SCIENTIST Unavailable Unavailable Fons, M Shaniqua CROP NUTRITION SCIENTIST Unavailable Unavailable Fons, M Shaniqua CROP NUTRITION SCIENTIST Unavailable Unavailable Fons, M Shaniqua CROP NUTRITION SCIENTIST Unavailable Unavailable Fons, M Shaniqua CROP NUTRITION SCIENTIST Unavailable Unavailable Fons, M Shaniqua CROP NUTRITION SCIENTIST Unavailable Unavailable Fons, M Shaniqua CROP NUTRITION SCIENTIST Unavailable Unavailable Fons, M Shaniqua CROP NUTRITION SCIENTIST Unavailable Unavailable Fons, M Shaniqua CROP NUTRITION SCIENTIST Unavailable Unavailable Fons, M Shaniqua CROP NUTRITION SCIENTIST Unavailable Unavailable Fons, M Shaniqua CROP NUTRITION SCIENTIST Unavailable Unavailable Fons, M Shaniqua CROP NUTRITION SCIENTIST Unavailable Unavailable Fons, M Shaniqua CROP NUTRITION SCIENTIST Unavailable Unavailable Fons, M Shaniqua CROP NUTRITION SCIENTIST Unavailable Unavailable Fons, M Shaniqua CROP NUTRITION SCIENTIST Unavailable Unavailable Fons, M Shaniqua CROP NUTRITION SCIENTIST Unavailable Unavailable Fons, M Shaniqua CROP NUTRITION SCIENTIST Unavailable Unavailable Fons, M Shaniqua CROP NUTRITION SCIENTIST Unavailable Unavailable Fons, M Shaniqua CROP NUTRITION SCIENTIST Unavailable Unavailable Fons, M Shaniqua CROP NUTRITION SCIENTIST Unavailable Unavailable Fons, M Shaniqua CROP NUTRITION SCIENTIST Unavailable Unavailable Fons, M Shaniqua CROP NUTRITION SCIENTIST Unavailable Unavailable RING, K JOVANY PA Unavailable Unavailable RING, K JOVANY PA Unavailable Unavailable RING, K JOVANY PA Unavailable Unavailable RING, K JOVANY PA Unavailable Unavailable RING, K JOVANY PA Unavailable Unavailable RING, K JOVANY PA Unavailable Unavailable RING, K JOVANY PA Unavailable Unavailable RING, K JOVANY PA Unavailable Unavailable RING, K JOVANY PA Unavailable Unavailable RING, K JOVANY PA Unavailable Unavailable RING, K JOVANY PA Unavailable Unavailable RING, K JOVANY PA Unavailable Unavailable RING, K JOVANY PA Unavailable Unavailable RING, K JOVANY PA Unavailable Unavailable RING, K JOVANY PA Unavailable Unavailable RING, K JOVANY PA Unavailable Unavailable RING, K JOVANY PA Unavailable Unavailable RING, K JOVANY PA Unavailable Unavailable RING, K JOVANY PA Unavailable Unavailable RING, K JOVANY PA Unavailable Unavailable RING, K JOVANY PA Unavailable Unavailable Alisia MEYER MD Unavailable Unavailable Alisia MEYER MD Unavailable Unavailable Alisia MEYER MD Unavailable Unavailable Alisia MEYER MD Unavailable Unavailable Alisia MEYER MD Unavailable Unavailable Alisia MEYER MD Unavailable Unavailable Alisia MEYER MD Unavailable Unavailable Alisia MEYER MD Unavailable Unavailable Alisia MEYER MD Unavailable Unavailable Alisia MEYER MD Unavailable Unavailable Alisia MEYER MD Unavailable Unavailable Alisia MEYER MD Unavailable Unavailable Alisia MEYER MD Unavailable Unavailable Alisia MEYER MD Unavailable Unavailable Alisia MEYER MD Unavailable Unavailable Alisia MEYER MD Unavailable Unavailable Alisia MEYER MD Unavailable Unavailable Alisia MEYER MD Unavailable Unavailable Alisia MEYER MD Unavailable Unavailable Alisia MEYER MD Unavailable Unavailable Alisia MEYER MD Unavailable Unavailable MITCH H CHEYRL SERRANO Unavailable Unavailable MITCH, H CHERYL SERRANO Unavailable Unavailable MITCH, H CHERYL SERRANO Unavailable Unavailable MITCH, H CHERYL SERRANO Unavailable Unavailable MITCH, H CHERYL SERRANO Unavailable Unavailable MITHC, H CHERYL SERRANO Unavailable Unavailable MITCH, H CHERYL SERRANO Unavailable Unavailable MITCH, H CHERYL SERRANO Unavailable Unavailable MITCH H CHERYL SERRANO Unavailable Unavailable MITCH H CHERYL SERRANO Unavailable Unavailable MITCH, H CHERYL SERRANO Unavailable Unavailable MITCH, H CHERYL SERRANO Unavailable Unavailable MITCH, H CHERYL SERRANO Unavailable Unavailable MITCH, H CHERYL SERRANO Unavailable Unavailable MITCH, H CHERYL SERRANO Unavailable Unavailable MITCH, H CHERYL SERRANO Unavailable Unavailable MITCH, H CHERYL SERRANO Unavailable Unavailable MITCH, H CHERYL SERRANO Unavailable Unavailable MITCH, H CHERYL SERRANO Unavailable Unavailable MITCH, H CHERYL MD Unavailable Unavailable MITCH, H CHERYL SERRANO Unavailable Unavailable MITCH, H CHERYL SERRANO Unavailable Unavailable MITCH, H CHERYL SERRANO Unavailable Unavailable MITCH, Alisia LUNA MD Unavailable Unavailable MITCH, Alisia LUNA MD Unavailable Unavailable MITCH, H CHERYL SERRANO Unavailable Unavailable Alisia MEYER MD Unavailable Unavailable Alisia MEYER MD Unavailable Unavailable MITCH, H CHERYL SERRANO Unavailable Unavailable MITCH, Alisia LUNA MD Unavailable Unavailable MITCH, H CHERYL SERRANO Unavailable Unavailable MITCH, Alisia LUNA MD Unavailable Unavailable Alisia MEYER MD Unavailable Unavailable MITCH, Alisia LUNA MD Unavailable Unavailable Alisia MEYER MD Unavailable Unavailable Alisia MEYER MD Unavailable Unavailable MITCH, Alisia LUNA MD Unavailable Unavailable MITCH, H HCERYL SERRANO Unavailable Unavailable Alisia MEYER MD Unavailable Unavailable MITCH, Alisia LUNA MD Unavailable Unavailable Alisia MEYER MD Unavailable Unavailable Alisia MEYER MD Unavailable Unavailable Alisia MEYER MD Unavailable Unavailable Alisia MEYER MD Unavailable Unavailable Alisia MEYER MD Unavailable Unavailable Alisia MEYER MD Unavailable Unavailable Alisia MEYER MD Unavailable Unavailable Alisia MEYER MD Unavailable Unavailable Alisia MEYER MD Unavailable Unavailable Alisia MEYER MD Unavailable Unavailable Alisia MEYER MD Unavailable Unavailable Alisia MEYER MD Unavailable Unavailable Alisia MEYER MD Unavailable Unavailable Alisia MEYER MD Unavailable Unavailable Alisia MEYER MD Unavailable Unavailable MITCH H CHERYL SERRANO Unavailable Unavailable Alisia MEYER MD Unavailable Unavailable Stephie, V NATALY PA-C Unavailable Unavailable Crockett, V NATALY PA-C Unavailable Unavailable Crockett, V NATALY PA-C Unavailable Unavailable Crockett, V NATALY PA-C Unavailable Unavailable Crockett, V NATALY PA-C Unavailable Unavailable Crockett, V NATALY PA-C Unavailable Unavailable Stephie, V NATALY PA-C Unavailable Unavailable Stephie, V NATALY PA-C Unavailable Unavailable Crockett, V NATALY PA-C Unavailable Unavailable Crockett, V NATALY PA-C Unavailable Unavailable Stephie, V NATALY PA-C Unavailable Unavailable Crockett, V NATALY PA-C Unavailable Unavailable Stephie, V NATALY PA-C Unavailable Unavailable Crockett, V NATALY PA-C Unavailable Unavailable Zainab Coronado MD Unavailable Unavailable Zainab Coronado MD Unavailable Unavailable Zainab Coronado MD Unavailable Unavailable Zainab Coronado MD Unavailable Unavailable Zainab Coronado MD Unavailable Unavailable Zainab Coronado MD Unavailable Unavailable SleZainab anderson MD Unavailable Unavailable Zainab Coronado MD Unavailable Unavailable Zainab Coronado MD Unavailable Unavailable Zainab Coronado MD Unavailable Unavailable Zainab Coronado MD Unavailable Unavailable Zainab Coronado MD Unavailable Unavailable Zainab Coronado MD Unavailable Unavailable Zainab Coronado MD Unavailable Unavailable Zainab Coronado MD Unavailable Unavailable Zainab Coronado MD Unavailable Unavailable Zainab Coronado MD Unavailable Unavailable Zainab Coronado MD Unavailable Unavailable Zainab Coronado MD Unavailable Unavailable Zainab Coronado MD Unavailable Unavailable Zainab Coronado MD Unavailable Unavailable Zainab Coronado MD Unavailable Unavailable Zainab Coronado MD Unavailable Unavailable Zainab Coronado MD Unavailable Unavailable Zainab Coronado MD Unavailable Unavailable Zainab Coronado MD Unavailable Unavailable Zainba Coronado MD Unavailable Unavailable Zainab Coronado MD Unavailable Unavailable Zainab Coronado MD Unavailable Unavailable Zainab Coronado MD Unavailable Unavailable Zainab Coronado MD Unavailable Unavailable Zainab Coronado MD Unavailable Unavailable Zainab Coronado MD Unavailable Unavailable Zainab Coronado MD Unavailable Unavailable Zainab Coronado MD Unavailable Unavailable Zainab Coronado MD Unavailable Unavailable Zainab Coronado MD Unavailable Unavailable Zainab Coronado MD Unavailable Unavailable Zainab Coronado MD Unavailable Unavailable Zainab Coronado MD Unavailable Unavailable Zainab Coronado MD Unavailable Unavailable Zainab Coronado MD Unavailable Unavailable Zainab Coronado MD Unavailable Unavailable Slezka, Vojtech MD Unavailable Unavailable Slezka, Vojtech MD Unavailable Unavailable Slezka, Vojtech MD Unavailable Unavailable Slezka, Vojtech MD Unavailable Unavailable Slezka, Vojtech MD Unavailable Unavailable Slezka, Vojtech MD Unavailable Unavailable Slezka, Vojtech MD Unavailable Unavailable Slezka, Vojtech MD Unavailable Unavailable Slezka, Vojtech MD Unavailable Unavailable Slezka, Vojtech MD Unavailable Unavailable Slezka, Vojtech MD Unavailable Unavailable Slezka, Vojtech MD Unavailable Unavailable Slezka, Vojtech MD Unavailable Unavailable Slezka, Vojtech MD Unavailable Unavailable Slezka, Vojtech MD Unavailable Unavailable Slezka, Vojtech MD Unavailable Unavailable Re-disclosure Warning The records that you are about to access may contain information from federally-assisted alcohol or drug abuse programs. If such information is present, then the following federally mandated warning applies: This information has been disclosed to you from records protected by federal confidentiality rules (42 CFR part 2). The federal rules prohibit you from making any further disclosure of this information unless further disclosure is expressly permitted by the written consent of the person to whom it pertains or as otherwise permitted by 42 CFR part 2. A general authorization for the release of medical or other information is NOT sufficient for this purpose. The Federal rules restrict any use of the information to criminally investigate or prosecute any alcohol or drug abuse patient.The records that you are about to access may contain highly sensitive health information, the redisclosure of which is protected by Article 27-F of the [facility] Public Health law. If you continue you may have access to information: Regarding HIV / AIDS; Provided by facilities licensed or operated by the [facility] Office of Mental Health; or Provided by the [facility] Office for People With Developmental Disabilities. If such information is present, then the following [facility] mandated warning applies: This information has been disclosed to you from confidential records which are protected by state law. State law prohibits you from making any further disclosure of this information without the specific written consent of the person to whom it pertains, or as otherwise permitted by law. Any unauthorized further disclosure in violation of state law may result in a fine or half-way sentence or both. A general authorization for the release of medical or other information is NOT sufficient authorization for further disc losure. Family History Family Member Name Family Member Gender Family Member Status Date o f Status Description Data Source(s) Unknown Female Problem MED[facility] ([facility]) Unknown Female Problem [facility] ([facility]) Encounters Encounter Providers Location Date Indications Data Source(s ) Outpatient Attender: Shaniqua COOPERANGIE-SJP.ANGIE 12/30/2020 08:53:21 AM EDT [facility] Outpatient Referrer: Shaniqua COOPERCT-SJP.SYR 09:30:18 AM EDT - 12/22/2020 10:14:29 AM EDT [facility] Outpatient Attender: Shaniqua COOPERANGIE-SJP 01:02:16 PM EDT - 12/16/2020 02:34:15 PM EDT [facility] Outpatient [address] [address] 12/01/2020 12:00:00 AM EDT eCW1 ([facility]) Outpatient Attender: JOVANY Rogers Primary 11/29/2020 08:40:00 AM EDT [facility] ([facility] Unknown [address] [facility] [address] 11/25/2020 12:00:00 AM EDT eCW1 ([facility]) Unknown [address] [facility] [address] 11/19/2020 12:00:00 AM EDT eCW1 ([facility]) Outpatient Attender: CHERYL MEYER MD [place] [facility] 11:15:00 AM EDT [facility] ([facility] Unknown [address] [facility] [address] 11/16/2020 12:00:00 AM EDT eCW1 ([facility]) Outpatient [address] [facility] [address] 11/12/2020 12:00:00 AM EDT eCW1 ([facility]) Outpatient Admitter: Jason Zaragoza MDReferrer: Jason Zaragoza MD 11/10/2020 12:00:00 AM EDT Chronic myeloproliferative disease [facility] Chronic myeloproliferative disease Outpatient Attender: NATAYL AWAD.ANGIE-SJP.ANGIE 09/2020 12:00:00 AM EDT - 11/10/2020 02:23:04 PM EDT [facility] Inpatient Attender: Jeovany Fletcher MDAdmitter: Jeovany bocanegra MD [id number]-[id number] 10/19/2020 07:36:00 AM EDT - 10/20/2020 05:47:00 PM EDT [facility] Patient discharged. Outpatient Attender: Hira Hernández MD ER-RAD 09/09/2020 04:06:00 AM [facility] Outpatient Attender: Jose Newton DOAdmitter: Jose HERRMANNeferrer: Kevin Anderson ES1-SJ.EU 08/07/2020 02:14:35 PM EDT - 08/12/2020 12:26:00 PM EDT [facility] Patient discharged. Outpatient Attender: NATALY AWAD.ANGIE-SJP.ANGIE 12:00:00 AM EDT - 07/30/2020 09:18:31 AM EDT [facility] Outpatient Attender: CHERYL MEYER MD [facility] 01:30:00 PM [facility] Outpatient Attender: CHERYL MEYER MDConsultant: CHERYL GALLOWAY MD 07/15/2020 07:32:00 AM EDT - 07/15/2020 08:32:00 AM EDT [facility] Patient discharged. Outpatient Attender: NATALY AWAD.ANGIE-SJP.ANGIE 09:17:03 AM EDT - 07/01/2020 10:18:29 AM EDT [facility] Outpatient Attender: CHERYL PRADO eferrer: CHERYL MEYER MDConsultant: CHERYL MEYER MD 06/30/2020 04:49:00 PM EDT - 06/30/2020 04:59: 00 PM EDT [facility] Outpatient Attender: CHERYL MEYER MD [place] [facility] 03:40:00 PM EDT [facility] ([facility] Inpatient Attender: Jeovany Fletcher MDAdmitter: Jeovany bocanegra MD ES1-SJ.CV 06/22/2020 03:02:45 PM EDT [facility] Outpatient Attender: Jeovany Fletcher MDAdmitter: Jeovany bocanegra MD ES1-SJ.AMAURY 06/18/2020 05:35:00 AM EDT - 06/18/2020 03:00:00 PM EDT [facility] Patient discharged. Outpatient Attender: Zainab Coronado MD SJP.ANGIE-SJP.ANGIE 05/06 12:00:00 AM EDT - 06/02/2020 01:49:51 PM EDT [facility] Outpatient Attender: CHERYL MEYER MD [facility] [facility] 12:15:00 PM EST [facility] ([facility] Outpatient Attender: CHERYL MEYER MD [facility] 10:00:00 AM EST [facility] ([facility] <td ID="encounterTypeDescriptionID0">1 Y ear Follow-Up</td><td>Zach Carvalho MD, FACS</td><td>[facility]</td><td>01/02/2020</td><td>9:02AM</td><td>9:59AM</td><td><content ID="encounterDiagnosisID0-0">Conjunctivitis Chronic Allergic</content>, <content ID="encounterDiagnosisID0-1">Dry Eye Syndrome Both Eyes</content>, <content ID="encounterDiagnosisID0-2">Pinguecula Bilateral</content>, <content ID="encounterDiagnosisID0-3">Dizziness</content></td>Outpatient Attender: Zach Carvalho MD, FACS [facility] Siegel MD [facility] 01/02/2020 09:02:00 AM EDT - 01/02/2020 09:59:00 AM EDT DizzinessPinguecula BilateralConjunctivi tis Chronic AllergicDry Eye Syndrome Both Eyes LUCÍA (Zach Carvalho MD [facility]) Dizziness Pinguecula Bilateral 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 Outpatient Attender: CHERYL MEYER MD [place] [facility] 11/2019 11:00:00 AM EDT [facility] ([facility] Outpatient SJP.[email or web address]-SJP.ANGIE 12/10/2019 12:00:00 AM EDT [facility] Outpatient Referrer: Zainab AWAD.ANGIE-SJP.ANGIE 08/2019 12:00:00 AM EDT [facility] Outpatient Attender: Zainab AWAD.ANGIE-SJP.ANGIE 07/2019 12:00:00 AM EDT - 12/09/2019 04:36:48 PM EDT [facility] Immunizations Vaccine Date Status Description Data Source(s) COVID-19 VACCINE Moderna 07/06/2020 12:00:00 AM EDT completed [facility] Vaccine Series Complete: YESThis Data wa s Submitted to [facility] Via [facility]. COVID-19 VACC,MRNA(MODERNA)/PF 06/04/2020 12:00:00 AM EDT completed [facility] COVID-19 VACCINE Moderna 06/04/2020 12:00:00 AM EDT completed [facility] Vaccine Series Complete: NOThis Data was Submitted to [facility] Via [facility] [employer]. Medications Medication Brand Name Start Date Product Form Dose Route Admi nistrative Instructions Pharmacy Instructions Status Indications Reaction Description Data Source(s) 12.5 mg 01/16/2021 12:00:00 AM EST tablet 90 TAKE ONE TABLET BY MOUTH THREE TIMES A DAY FOR DIZZINESS TAKE ONE TABLET BY MOUTH THREE TIMES A D AY FOR DIZZINESS SOLD: 01/17/2021 [facility] Multivitamin 11/17/2020 12:00:00 AM EDT ORAL activ e [facility] ([facility] Bisacodyl 10 MG Rectal Suppository bisacodyl (DULCOLAX ) suppository 10 mg bisacodyl (DULCOLAX) suppository 10 mg 10/22/2020 09:00:00 AM EDT 10 mg Rectal active 10 mg, Rectal, Daily PRN, constipation, Starting on Mon10/22/20 at 0900, Post-op
If lactulose not effective, give bisacodyl suppository x 1 per rectum prn starting POD #3.
[facility] Medication administered onsite POLYETHYLENE GLYCOL 3350 142 MG/ML Oral Solution polyethylene glycol (GLYCOLAX) packet 17 g polyethylene glycol (GLYCOLAX) packet 17 g 10/21/2020 07:00:00 AM EDT 17 g Oral active 17 g, Or al, Daily PRN, For constipation, Starting on Mon10/21/20 at 0700, PACU & Post-op
hold for loose stools
[facility] Medication administered onsite 500 mg 10/21/2020 12:00:00 AM EDT capsule 4 TAKE 4 CAPSULES BY MOUTH PRIOR TO DENTAL PROCEDURES TAKE 4 CAPSULES BY MOUTH PRIOR TO DENTAL PROCEDURES SO LD: 10/22/2020 [facility] Docusate Sodium 100 MG Oral Capsule docusate sodium (C OLACE) capsule 100 mg docusate sodium (COLACE) capsule 100 mg 10/20/2020 09:00:00 AM EDT 100 mg Oral active 100 mg, Oral, 2 times daily, First dose on Mon10/20/20 at 0900, Post-op
Start first POD.
[facility] Medication administered onsite normal saline flush 0.9 % injection 3 mL [id number] 10/20/2020 09:00:00 AM EDT 3 mL Intravenous active 3 mL , Intravenous, PROTOCOL, First dose on Mon10/20/20 at 0900, Post-op
flush per protocol, D/C Main IV fluid if appropriate
[facility] Medication administered onsite clopidogrel 75 MG Oral Tablet clopidogrel (PLAVIX) tab let 75 mg clopidogrel (PLAVIX) tablet 75 mg 10/20/2020 09:00:00 AM EDT 75 mg Oral active 75 mg, Oral, Daily, First dose on Mon10/20/20 at 0900, Post-op
Start first POD.
[facility] Medication administered onsite Amoxicillin 500 MG Oral Capsule amoxicillin (AMOXIL) 5 00 MG capsule amoxicillin (AMOXIL) 500 MG capsule 10/20/2020 12:00:00 AM EDT 2000 mg Oral aborted Take 4 capsules (2,000 mg total) by mout h as needed Take prior to dental procedures [facility] sodium chloride 0.9% (NS) infusion [id number] 10/19/2020 10:00:00 P M EDT Intravenous completed at 100 mL/hr, Intravenous, Continuous, Starting on Mon10/19/20 at 2200, For 4 hours, Post-op [facility] Medication administered onsite Cefazolin 1000 MG Injection ceFAZolin (ANCEF) injectio n 1 g ceFAZolin (ANCEF) injection 1 g 10/19/2020 10:00:00 PM EDT 1 g Intravenous completed Perioperative Pharmacoprophylaxis 1 g, Intravenous, Ev lexx 8 hours (relative), First dose on Mon10/19/20 at 2200, For 2 doses, Post-op
Reconstitute with 10 ml sterile water for injection. Administer IV push over 3 minutes. Use within 1 hour of reconstitution
[facility] Perioperative Pharmacoprophylaxis Medication administered onsite acetaminophen (TYLENOL) 325 MG tablet 650 mg 08:48:36 PM EDT 650 mg Oral active [Order 1 S tart] Name: acetaminophen (TYLENOL) 325 MG tablet 650 mg Signed Summary: 650 mg, Oral, Every 4 hours PRN, mild pain (1-3), for temperature > 101. Call MD/PA. May also give for headache., Starting on Mon10/19/20 at 2047, Post-op
"Maximum dose of acetaminophen is 4,000 mg from all sources in 24 hours."
[Order 1 End] [Order 2 Start] Name: acetaminophen (TYLENOL) suppository 650 mg Signed Summary: 650 mg (1 suppository), Rectal, Every 4 hours PRN, mild pain (1-3), for temperature > 101. Call MD/PA. May also give for headache., Starting on Mon10/19/20 at 2047, Post-op [Order 2 End] [facility] Medication administered onsite 2 ML Metoclopramide 5 MG/ML Prefilled Sy ringe metoclopramide (REGLAN) injection 10 mg metoclopramide (REGLAN) injection 10 mg 10/19/2020 08:48:36 PM E DT 10 mg Intravenous active 10 mg, I ntravenous, Every 6 hours PRN, nausea, vomiting, Starting on Mon10/19/20 at 2047, Post-op
Give once if no response to Zofran after 15-30 minutes, then q6h prn N/V.
[facility] Medication administered onsite ondansetron (ZOFRAN) injection 4 mg [id number] 10/19/2020 08:48:3 6 PM EDT 4 mg Intravenous active 4 mg, In travenous, Every 6 hours PRN, nausea, vomiting, Starting on Mon10/19/20 at 2047, Post-op
If no response in 15-30 minutes then give metoclopramide 10 mg IV x 1 then q6h prn N/V.
[facility] Medication administered onsite 10 ML Atropine Sulfate 0.1 MG/ML Prefill ed Syringe atropine sulfate injection 0.5 mg atropine sulfate injection 0.5 mg 10/19/2020 08:48:35 PM EDT 0.5 mg active 0.5 mg, Intrave nous Push, Every 5 min PRN, other, As needed, for heart rate less than 60 BPM and the patient is hemodynamically unstable and/or SBP is less than 90mmHg, Starting on Mon10/19/20 at 2047, For 6 doses, Post-op
Not to exceed a total of 3 mg or 0.04 mg/kg.
[facility] Medication administered onsite 8 mg 10/13/2020 12:00:00 AM EDT tablet 9 TAKE ONE TABLET BY MOUTH EVERY 8 HOURS NEEDED FOR NAUSEA OR VOMITING TAKE ONE TABLET BY MOUTH EVERY 8 HOURS A S NEEDED FOR NAUSEA OR VOMITING SOLD: 10/15/2020 [facility] 10 mg 10/13/2020 12:00:00 AM EDT tablet 30 TAKE ONE TABLET BY MOUTH EVERY 8 HOURS NEEDED FOR NAUSEA OR VOMITING TAKE ONE TABLET BY MOUTH EVERY 8 HOURS A S NEEDED FOR NAUSEA OR VOMITING SOLD: 10/15/2020 [facility] normal saline flush 0.9 % injection 3 mL [id number] 08/12/2020 02:00:00 PM EDT 3 mL Intravenous active 3 mL , Intravenous, Every 8 hours (scheduled), First dose on Mon08/12/20 at 1400, PACU (only)
flush per protocol, D/C Main IV fluid if appropriate
[facility] Medication administered onsite Magnesium Chloride 0.05140 MEQ/ML / Pota ssium Chloride 0.0497 MEQ/ML / Sodium Acetate 0.0163 MEQ/ML / Sodium Chloride 0.0899 MEQ/ML / Sodium gluconate 5.02 MG/ML Injectable Solution [Normosol-R] electrolyte-R (NORMOSOL-R/PLASMALYTE-R) solution electrolyte-R (NORMOSOL-R/PLASMALYTE-R) solution 08/12 12:00:00 PM EDT Intravenous active at 1 00 mL/hr, Intravenous, Continuous, Starting on Mon08/12/20 at 1200, Pre-op [facility] Medication administered onsite Magnesium Chloride 0.54127 MEQ/ML / Pota ssium Chloride 0.0497 MEQ/ML / Sodium Acetate 0.0163 MEQ/ML / Sodium Chloride 0.0899 MEQ/ML / Sodium gluconate 5.02 MG/ML Injectable Solution [Normosol-R] electrolyte-R (NORMOSOL-R/PLASMALYTE-R) solution electrolyte-R (NORMOSOL-R/PLASMALYTE-R) solution 08/12 12:00:00 PM EDT Intravenous active at 1 00 mL/hr, Intravenous, Continuous, Starting on Mon08/12/20 at 1200, Pre-op
FOR DIABETIC PATIENTS: If blood glucose > 120 mg/dL, start IV of Normosol-R @100 mL/hr.
[facility] Medication administered onsite ondansetron (ZOFRAN) injection 4 mg [id number] 08/12/2020 11:03:5 4 AM EDT 4 mg Intravenous active 4 mg, In travenous, As needed, nausea, vomiting, Starting on Mon08/12/20 at 1103, For 1 dose, PACU (only)
If not given in last 4 hours
[facility] Medication administered onsite Hydralazine Hydrochloride 20 MG/ML Injec table Solution hydrALAZINE (APRESOLINE) injection 5 mg hydrALAZINE (APRESOLINE) injection 5 mg 08/12/2020 11: 03:54 AM EDT 5 mg Intravenous active 5 mg , Intravenous, Every 15 min PRN, high blood pressure, Starting on Mon08/12/20 at 1103, For 4 doses, PACU (only)
Give for a SBP >150 and /or a DBP >100
[facility] Medication administered onsite Albuterol 0.83 MG/ML Inhalant Solution a lbuterol (PROVENTIL) nebulizer solution 2.5 mg albuterol (PROVENTIL) nebulizer solution 2.5 mg 2020 11:03:54 AM EDT 2.5 mg active 2.5 mg, Nebulization, Once as needed, shortness of breath, Starting on Mon08/12/20 at 1103, For 1 dose, PACU (only) [facility] Medication administered onsite normal saline flush 0.9 % injection 3 mL [id number] 06/18/2020 02:00:00 PM EDT 3 mL Intravenous active 3 mL , Intravenous, PROTOCOL, First dose on Hyun 06/18/20 at 1400, Pre-op
flush per protocol, D/C Main IV fluid if appropriate
[facility] Medication administered onsite iopamidol (ISOVUE-370) 76 % 120 mL [id number] 06/18/2020 12:22:16 PM EDT 120 mL Intravenous completed 120 mL, Intra venous, Once in imaging, contrast, Starting Hyun 06/18/20 at 1222, For 1 dose [facility] Medication administered onsite iopamidol (ISOVUE-370) 76 % [id number] 06/18/2020 09:46:09 AM EDT active As needed, Starting Hyun 06/18/20 at 0946, Intra-Procedu re [facility] Medication administered onsite 4 ML Verapamil hydrochloride 2.5 MG/ML Injection verap dilcia (ISOPTIN) injection verapamil (ISOPTIN) injection 06/18/2020 09:29:02 AM EDT active As needed, Starting Hyun 06/18/20 at 0929, Intra-Procedure [facility] Medication administered onsite 1 ML heparin sodium, porcine 1000 UNT/ML Injection hep joe (porcine) injection heparin (porcine) injection 06/18/2020 09:28:54 AM EDT active As needed, Starting Hyun 06/18/20 at 0928, Intra-Procedure [facility] Medication administered onsite lidocaine 1 % injection [id number] 06/18/2020 09:26:06 AM EDT active As needed, Starting Hyun 06/18/20 at 0926, Intra-Procedure [facility] Medication administered onsite 2 ML Midazolam 1 MG/ML Injection midazolam (VERSED) in jection midazolam (VERSED) injection 06/18/2020 09:22:34 AM EDT active As needed, Starting Hyun 06/18/20 at 0922, Intra-Procedure [facility] Medication administered onsite normal saline flush 0.9 % injection 3 mL [id number] 06/18/2020 07:00:00 AM EDT 3 mL Intravenous active 3 mL , Intravenous, Every 8 hours (scheduled), First dose on Hyun 06/18/20 at 0700, Pre-op
Rapid push positive pressure flushing shall be performed with a 10 cc normal saline syringe to check the PATENCY of a PIV site prior to any infusion therapy initiation unless resistance is met.
[facility] Medication administered onsite normal saline flush 0.9 % injection 3 mL [id number] 06/18/2020 07:00:00 AM EDT 3 mL Intravenous active 3 mL , Intravenous, Every 8 hours (scheduled), First dose on Hyun 06/18/20 at 0700, Pre-op
Rapid push positive pressure flushing shall be performed with a 10 cc normal saline syringe to check the PATENCY of a PIV site prior to any infusion therapy initiation unless resistance is met.
[facility] Medication administered onsite Aspirin 325 MG Oral Tablet aspirin tablet 325 mg aspirin tab let 325 mg 06/18/2020 07:00:00 AM EDT 325 mg Oral completed 325 mg, Oral, Once, Hyun 06/18/20 at 0700, For 1 dose, Pre-op
Give if scheduled for cardiac or peripheral angioplasty/stent or carotid stenting. Administer AM dose prior to procedure if NOT taken at home. Max of 1 dose per day.
[facility] Medication administered onsite Diphenhydramine Hydrochloride 50 MG Oral Capsule diphenhydrAMINE (BENADRYL) capsule 50 mg diphenhydrAMINE (BENADRYL) capsule 50 mg 06/18/2020 07 :00:00 AM EDT 50 mg Oral completed 50 mg, Oral, director call, Hyun 06/18/20 at 0700, For 1 dose, Pre-op [facility] Medication administered onsite sodium chloride 0.9% (NS) infusion [id number] 06/18/2020 07:00:00 AM EDT 100 mL/h Intravenous active at 100 m L/hr, 100 mL/hr, Intravenous, Continuous, Starting Hyun 06/18/20 at 0700, Pre-op
Start two hours prior to scheduled start time
[facility] Medication administered onsite Aspirin 81 MG Delayed Release Oral Tablet aspirin EC 8 1 MG EC tablet aspirin EC 81 MG EC tablet 06/02/2020 12:00:00 AM EDT 81 mg Oral ac tive Take 1 tablet (81 mg total) by mouth daily [facility] Iodine, Kelp, (KELP PO) drug or medication Oral aborted Take by mouth [facility] James, Zingiber officinalis, (JAMES PO) Oral aborted Take by mouth [facility] Ondansetron 8 MG Oral Tablet ondansetron (ZOFRAN) 8 MG tablet ondansetron (ZOFRAN) 8 MG tablet 8 mg Oral aborted Take 8 mg by mouth every 8 (eight) hours as needed for nausea [facility] Prochlorperazine 10 MG Oral Tablet prochlorperazine (C OMPAZINE) 10 MG tablet prochlorperazine (COMPAZINE) 10 MG tablet 10 mg Oral aborted Take 10 mg by mouth every 8 (eight) hours as needed [facility] Flaxseed, Linseed, (FLAX PO) drug or medication Oral aborted Take by mouth [facility] Cephalexin 50 MG/ML Oral Suspension cephALEXin (KEFLEX ) 250 MG/5ML suspension cephALEXin (KEFLEX) 250 MG/5ML suspension Oral aborted Take by mouth 3 (three) times a day Via port [facility] 1 ML heparin sodium, porcine 1000 UNT/ML Injection Heparin Sodium, Porcine, (heparin, porcine,) 1000 UNIT/ML injection Heparin Sodium, Porcine, (heparin, porcine,) 1000 UNIT/ML injection Intravenous aborted Infuse into a venous catheter not sure of dose [facility] Insurance Providers Payer name Policy type / Coverage type Policy ID Covered alliance party ID Covered alliance party's relationship to king Policy [place] Plan Information MEDICARE [id number] Sheryl [id number] Y25 MEDICARE [id number] xxxxxxxxxxx [id number] MEDICARE [id number] SP [id number] MEDICARE [id number] SP [id number] A [id number] A MEDICARE A [id number] Self [id number] [id number] UMR [id number] [id number] UMR [id number] Sheryl [id number] UMR U [id number] Self [id number] INSURANCE COVID-19 COVID Sheryl C OVID INSURANCE COVID-19 COVID Sheryl C OVID INSURANCE COVID-19 [id number] 2 [id number] [place] (pr) Medigap Part B [id number] Self Medicare [place] Primary [id number] Self [id number] MEDICARE PART A -O/P [id number] 18 [id number] [employer] [place] Other 0 [id number] Self 0 Medicare Part B of [facility] Other 0 [id number] Self 0 MEDICARE [id number] S [id number] Y25 UMR -O/P [id number] 18 [id number] UMR [facility] [id number] SP [id number] UMR -O/P [id number] 18 [id number] UMR O [id number] S [id number] MEDICARE C [id number] S [id number] [employer] [place] Other 0 [id number] Self 0 Medicare Part B of [facility] Other 0 [id number] Self 0 [employer] [id number] SP [id number] Problems, Conditions, and Diagnoses Code Display Name Description Problem Type Effective Dates Data Source(s) C25.9 Malignant neoplasm of pancreas, unspecif ied Malignant neoplasm of pancreas, unspecif Diagnosis 12/16/2020 01:02:16 PM EDT [facility] I35.0 Nonrheumatic aortic (valve) stenosis Nonrheumati c aortic (valve) stenosis Diagnosis 12/16/2020 01:02:16 PM EDT [facility] R42 Dizziness and giddiness Dizziness and giddiness Diagno sis 12/16/2020 01:02:16 PM EDT [facility] D47.1 Chronic myeloproliferative disease Chronic myelo proliferative disease Diagnosis 11/10/2020 01:58:00 PM EDT [facility] C25.9 Malignant neoplasm of pancreas, unspecif ied MALIGNANT NEOPLASM OF PANCREAS, UNSPECIF Diagnosis 09/09/2020 04:06:00 AM EDT [facility] C25.8 Malignant neoplasm of overlapping sites of pancreas MALIGNANT NEOPLASM OF OVERLAPPING SITES OF PANCREAS Diagnosis 09/09/2020 04:06:00 AM EDT [facility] K86.89 Other specified diseases of pancreas Oth er specified diseases of pancreas Diagnosis 08/12/2020 07:41:00 AM EDT [facility] R933 Abnormal findings on diagnostic imaging of other parts of digestive tract Abnormal findings on diagnostic imaging of other parts of digestive tract Diagnosis 07/15/2020 07:32:00 AM EDT [facility] C251 Malignant neoplasm of body of pancreas M alignant neoplasm of body of pancreas Diagnosis 07/15/2020 07:32:00 AM EDT [facility] R7301 Impaired fasting glucose Impaired fasting glucose Diag nosis 06/30/2020 04:49:00 PM EDT [facility] I350 Nonrheumatic aortic (valve) stenosis Nonrheumati c aortic (valve) stenosis Diagnosis 06/30/2020 04:49:00 PM EDT [facility] R06.02 Shortness of breath Shortness of breath Diagnosis 0 06/18/2020 05:35:00 AM EDT [facility] R42 Dizziness Dizziness [id number] 12/16/2020 12:00:00 AM ED T [facility] D72.829 [id number] Leukocytosis, unspecified type Problem 11/12/2020 12:00:00 AM EDT [facility] ([facility]) C25.9 [id number] Malignant neoplasm o f pancreas, unspecified location of malignancy Problem 11/12/2020 12:00:00 AM EDT [facility] ([facility]) 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) Problem 11/12/2020 12:00:00 AM EDT [facility] ([facility]) R78.81 [id number] Bacteremia Problem 11/12/2020 12:00:00 AM ED T [facility] ([facility]) A49.01 [id number] MSSA (methicillin susceptible Staphylococ cus aureus) Problem 11/12/2020 12:00:00 AM EDT [facility] ([facility]) C25.9 Pancreatic cancer Pancreatic cancer [id number] 11/10/2020 12:00:00 AM EDT [facility] I35.0 Nonrheumatic aortic (valve) stenosis Nonrheumati c aortic (valve) stenosis [id number] 10/19/2020 12:00:00 AM EDT [facility] R06.02 Shortness of breath Shortness of breath [id number] 06/05/2020 12:00:00 AM EDT [facility] I35.0 Nonrheumatic aortic valve stenosis Nonrheumatic aortic valve stenosis [id number] 12/09/2019 12:00:00 AM EDT [facility] Surgeries/Procedures Procedure Description Date Indications Data Source(s) ECG ROUTINE ECG W/LEAST 12 LDS W/I&R <td>POCT AMB EKG</td><td>Routine</td><td>12/16/2020 2:50 PM EDT</td><td> Dizziness</td><td> </td> 12/16/2020 02:50:00 PM EDT Dizziness [facility] Dizziness BLOOD COUNT COMPLETE AUTO&AUTO DIFRNTL WBC COUNT <td>C BC AND DIFFERENTIAL</td><td>Routine</td><td>12/10/2020</td><td></td><td> </td> 12/10/2020 12:00:00 AM EDT [facility] HEPATIC FUNCTION PANEL <td>HEPATIC FUNCTION PANEL</td><td>Routine</td><td>12/10/2020</td><td></td><td> </td> 12/10/2020 12:00:00 AM EDT [facility] BASIC METABOLIC PANEL CALCIUM TOTAL <td>BASIC METABOLI C PANEL</td><td>Routine</td><td>12/10/2020</td><td></td><td> </td> 12/10/2020 12:00:00 AM EDT [facility] OFFICE OUTPATIENT NEW 30 MINUTES 11/29/2020 12:00:00 A M EDT [facility] ([facility]) OFFICE OUTPATIENT VISIT 25 MINUTES 11/17/2020 12:00:00 AM EDT [facility] ([facility] POCT AMB EKG <td>POCT AMB EKG</td><td>Rou migdalia</td><td>11/10/2020 1:42 PM EDT</td><td> Nonrheumatic aortic (valve) stenosis</td><td> </td> 11/10/2020 01:42:00 PM EDT Nonrheumatic aortic (valve) stenosis [facility] Nonrheumatic aortic (valve) stenosis TROPONIN QUANTITATIVE <td>TROPONIN I</td><td>Routine</td><td>10/23/2020</td><td></td><td> </td> 10/23/2020 12:00:00 AM EDT [facility] PROTHROMBIN TIME <td>PROTIME- INR</td><td>Routine</td><td>10/23/2020</td><td></td><td> </td> 10/23/2020 12:00:00 AM EDT [facility] PROTHROMBIN TIME <td>POCT INR</td><td>Routine</td><td>10/23/2020</td><td></td><td> </td> 10/23/2020 12:00:00 AM EDT [facility] BLOOD COUNT COMPLETE AUTOMATED <td>CBC</td><td>Timed</ td><td>10/20/2020 3:41 PM EDT</td><td></td><td> </td> 10/20/2020 03:41:00 PM EDT [facility] BASIC METABOLIC PANEL CALCIUM TOTAL <td>BASIC METABOLI C PANEL</td><td>Timed</td><td>10/20/2020 3:41 PM EDT</td><td></td><td> </td> 10/20/2020 03:41:00 PM EDT [facility] ECHO TTHRC R-T 2D W/WOM-MODE COMPL SPEC&COLR DOP <td>E CHOCARDIOGRAM TRANSTHORACIC</td><td>Routine</td><td>10/20/2020 11:14 AM EDT</td><td></td><td> </td> 10/20/2020 11:14:47 AM EDT [facility] PROTHROMBIN TIME <td>PROTIME-INR</td><td>Rout ine</td><td>10/20/2020 12:17 AM EDT</td><td></td><td> </td> 10/20/2020 12:17:00 AM EDT [facility] MAGNESIUM <td>MAGNESIUM</td><td>Routin e</td><td>10/20/2020 12:17 AM EDT</td><td></td><td> </td> 10/20/2020 12:17:00 AM EDT [facility] XR CHEST PORTABLE <td>XR CHEST PORTABLE</td><t d>STAT</td><td>10/19/2020 3:47 PM EDT</td><td></td><td> </td> 10/19/2020 03:47:27 PM EDT [facility] PROTHROMBIN TIME <td>PROTIME-INR</td><td>STAT </td><td>10/19/2020 3:45 PM EDT</td><td></td><td> </td> 10/19/2020 03:45:00 PM EDT [facility] BLOOD COUNT COMPLETE AUTOMATED <td>CBC</td><td>STAT</t d><td>10/19/2020 3:45 PM EDT</td><td></td><td> </td> 10/19/2020 03:45:00 PM EDT [facility] MAGNESIUM <td>MAGNESIUM</td><td>STAT</ td><td>10/19/2020 3:45 PM EDT</td><td></td><td> </td> 10/19/2020 03:45:00 PM EDT [facility] BASIC METABOLIC PANEL CALCIUM TOTAL <td>BASIC METABOLI C PANEL</td><td>STAT</td><td>10/19/2020 3:45 PM EDT</td><td></td><td> </td> 10/19/2020 03:45:00 PM EDT [facility] ECG ROUTINE ECG W/LEAST 12 LDS W/I&R <td>ECG 12- LEAD</td><td>Routine</td><td>10/19/2020 3:23 PM EDT</td><td></td><td></td> 10/19/2020 03:23:01 PM EDT [facility] TRANSCATHETER AORTIC VALVE IMPLANT FEMORAL <td>TRANSCA THETER AORTIC VALVE IMPLANT FEMORAL</td><td>Routine</td><td>10/19/2020 2:58 PM EDT</td><td> Nonrheumatic aortic (valve) stenosis</td><td> </td> 10/19/2020 02:58:54 PM EDT Nonrheumatic aortic (valve) stenosis [facility] Nonrheumatic aortic (valve) stenosis POC ACT <td>POC ACT</td><td>Routine< /td><td>10/19/2020 2:46 PM EDT</td><td></td><td> </td> 10/19/2020 02:46:00 PM EDT [facility] POC ARTERIAL BLOOD GAS W LYTES <td>POC ARTERIAL BLOOD GAS W LYTES</td><td>Routine</td><td>10/19/2020 2:46 PM EDT</td><td></td><td> </td> 10/19/2020 02:46:00 PM EDT [facility] POC ACT <td>POC ACT</td><td>Routine< /td><td>10/19/2020 2:08 PM EDT</td><td></td><td> </td> 10/19/2020 02:08:00 PM EDT [facility] POC ARTERIAL BLOOD GAS W LYTES <td>POC ARTERIAL BLOOD GAS W LYTES</td><td>Routine</td><td>10/19/2020 2:08 PM EDT</td><td></td><td> </td> 10/19/2020 02:08:00 PM EDT [facility] BLOOD TYPING ABO <td>TYPE AND SCREEN</td><td> Routine</td><td>10/19/2020 9:00 AM EDT</td><td></td><td> </td> 10/19/2020 09:00:00 AM EDT [facility] ROOM TEMP AB SCREEN <td>ROOM TEMP AB SCREEN</td> <td>STAT</td><td>10/19/2020 8:54 AM EDT</td><td></td><td> </td> 10/19/2020 08:54:00 AM EDT [facility] NT PRO BNP <td>NT PRO BNP</td><td>STAT< /td><td>10/19/2020 8:54 AM EDT</td><td></td><td> </td> 10/19/2020 08:54:00 AM EDT [facility] PROTHROMBIN TIME <td>PROTIME-INR</td><td>STAT </td><td>10/19/2020 8:54 AM EDT</td><td></td><td> </td> 10/19/2020 08:54:00 AM EDT [facility] BLOOD COUNT COMPLETE AUTOMATED <td>CBC</td><td>STAT</t d><td>10/19/2020 8:54 AM EDT</td><td></td><td> </td> 10/19/2020 08:54:00 AM EDT [facility] MAGNESIUM <td>MAGNESIUM</td><td>STAT</ td><td>10/19/2020 8:54 AM EDT</td><td></td><td> </td> 10/19/2020 08:54:00 AM EDT [facility] HEMOGLOBIN GLYCOSYLATED A1C <td>HEMOGLOBIN A1C</td><td >STAT</td><td>10/19/2020 8:54 AM EDT</td><td></td><td> </td> 10/19/2020 08:54:00 AM EDT [facility] COMPREHENSIVE METABOLIC PANEL <td>COMPREHENSIVE METABO LIC PANEL</td><td>STAT</td><td>10/19/2020 8:54 AM EDT</td><td></td><td> </td> 10/19/2020 08:54:00 AM EDT [facility] GLUC BLD GLUC MNTR DEV CLEARED FDA SPEC HOME USE <td>P OCT GLUCOSE</td><td>Routine</td><td>10/19/2020 8:47 AM EDT</td><td></td><td> </td> 10/19/2020 08:47:00 AM EDT [facility] UPPER NDSC BIOPSY SINGLE/MULTIPLE 08/12/2020 12:00:00 AM EDT [facility] ([facility]) Endo W/Eus & Fna (Stomach) 08/12/2020 12:00:00 AM EDT [facility] ([facility]) OFFICE OUTPATIENT VISIT 25 MINUTES 07/29/2020 12:00:00 AM EDT [facility] ([facility] ECG ROUTINE ECG W/LEAST 12 LDS W/I&R <td>POCT AMB EKG</td><td>Routine</td><td>07/02/2020 8:24 AM EDT</td><td> Nonrheumatic aortic valve stenosis</td><td> </td> 07/02/2020 08:24:00 AM EDT Nonrheumatic aortic valve stenosis [facility] Nonrheumatic aortic valve stenosis OFFICE OUTPATIENT VISIT 25 MINUTES 06/29/2020 12:00:00 AM EDT [facility] ([facility] CT ANGIO ABD&PLVIS CNTRST MTRL W/WO CNTRST IMGES <td>C T ANGIOGRAM ABDOMEN PELVIS</td><td>Routine</td><td>06/18/2020 12:40 PM EDT</td><td></td><td> </td> 06/18/2020 04:40:27 PM EDT [facility] CT ANGIOGRAPHY CHEST W/CONTRAST/NONCONTRAST <td>CT ANG IOGRAM CHEST</td><td>Routine</td><td>06/18/2020 12:40 PM EDT</td><td></td><td> </td> 06/18/2020 04:40:27 PM EDT [facility] DUPLEX SCAN EXTRACRANIAL ART COMPL BI STUDY <td>US CAR OTID BILATERAL</td><td>Pending Discharge</td><td>06/18/2020 11:51 AM EDT</td><td></td><td> </td> 06/18/2020 03:51:24 PM EDT [facility] BEDSIDE PULMONARY FUNCTION TEST <td>BEDSIDE PULMONARY FUNCTION TEST</td><td>Routine</td><td>06/18/2020 9:47 AM EDT</td><td></td><td></td> 06/18/2020 01:47:22 PM EDT [facility] RADEX SPINE ENTIRE SURVEY STD ANTEROPOST&LAT <td>CARDI AC CATHETERIZATION</td><td>Routine</td><td>06/18/2020 9:43 AM EDT</td><td> Nonrheumatic aortic valve stenosis Shortness of breath</td><td> </td> 06/18/2020 01:43:44 PM EDT Shortness of breathNonrheumatic aortic valve stenosis [facility] Shortness of breath Nonrheumatic aortic valve stenosis ECG ROUTINE ECG W/LEAST 12 LDS TRCG ONLY W/O I&R <td>E CG 12- LEAD</td><td>Routine</td><td>06/18/2020 6:20 AM EDT</td><td></td><td></td> 06/18/2020 10:20:47 AM EDT [facility] ECG ROUTINE ECG W/LEAST 12 LDS W/I&R <td>POCT AMB EKG</td><td>Routine</td><td>06/02/2020 1:36 PM EDT</td><td> Nonrheumatic aortic valve stenosis</td><td> </td> 06/02/2020 05:36:00 PM EDT Nonrheumatic aortic valve stenosis [facility] Nonrheumatic aortic valve stenosis Intermediate Eye Exam Established Patient Intermediate Eye Exam Established Patient 01/02/2020 12:00:00 AM EDT LUCÍA (Wilfred id Mare Benedict Carvalho MD [facility]) Results ID Date Data Source [id number] 01/19/2021 07:54:00 AM EST [facility] Name Value Range Interpretation Code Description Data Susan rce(s) Supporting Document(s) White Blood Count 7.7 10 4.0-10.0 Normal (applies to non-numeri c results) [facility] ([facility] Hemoglobin 12.9 g/dL 13.5-17.5 Below low normal [facility] ( [facility] Red Blood Count 3.97 10 4.30-6.10 Below low normal [facility] ([facility] Mean Corpuscular Volume 95.2 fl 80.0-96.0 Normal ( applies to non-numeric results) [facility] ([facility] ) Hematocrit 37.8 % 42.0-52.0 Below low normal [facility] ( [facility] Mean Corpuscular Hemoglobin 32.5 pg 27.0-33.0 Norm al (applies to non-numeric results) [facility] ([facility] ) Mean Corpuscular HGB Conc 34.1 g/dL 32.0-36.5 Normal (applies to non-numeric results) [facility] ([facility] ) Red Cell Distribution Width 12.9 % 11.5-14.5 Norm al (applies to non-numeric results) [facility] ([facility] ) Neutrophils % 53.0 % 36.0-66.0 Normal (applies to non-numeric re sults) [facility] ([facility] Platelet Count, Automated 118 10 150-450 Below low normal [facility] ([facility] Lymph % 10.4 % 24.0-44.0 Below low normal [facility] ( [facility] Lamar % 31.3 % 2.0-8.0 Above high normal [facility] ([facility] Eos % 0.6 % 0.0-3.0 Normal (applies to non-numeric resul ts) [facility] ([facility] Baso % 0.4 % 0.0-1.0 Normal (applies to non-numeric resul ts) [facility] ([facility] Immature Granulocyte % 4.3 % 0-3.0 Above high normal [facility] ([facility] Nucleated Red Blood Cell % 0.0 % 0-0 Normal (applies to n on-numeric results) [facility] ([facility] Neutrophils # 4.1 10 1.5-8.5 Normal (applies to non-numeric re sults) [facility] ([facility] Lymph # 0.8 10 1.5-5.0 Below low normal [facility] ( [facility] Lamar # 2.4 10 0.0-0.8 Above high normal [facility] ([facility] Eos # 0.1 10 0.0-0.5 Normal (applies to non-numeric resul ts) [facility] ([facility] Baso # 0.0 10 0.0-0.2 Normal (applies to non-numeric resul ts) [facility] ([facility] ID Date Data Source [id number] 01/19/2021 07:54:00 AM EST [facility] ([facility] Name Value Range Interpretation Code Description Data Susan rce(s) Supporting Document(s) Cancer Ag 19-9 [Units/volume] in Serum or Plasma 56932.1 U/ML Above high normal [facility] ([facility] ) THE CA 19-9 ASSAY IS PERFORMED ON THE [place] BY CHEMILUMINESCENCE AND SHOULD NOT BE COMPARED INTERCHANGEABLY WITH OTHER METHODS. IT SHOULD NOT BE USED ALONE A SCREENING TEST OR DIAGNOSIS FOR THE PRESENCE OR ABSENCE OF MALIGNANT DISEASE. PREDICTIONS OF DISEASE RECURRENCE SHOULD NOT BE BASED SOLELY ON VALUES OBTAINED FROM SERIAL PATIENT SERUM VALUES. ID Date Data Source [id number] 01/19/2021 07:54:00 AM EST [facility] ([facility] Name Value Range Interpretation Code Description Data Susan rce(s) Supporting Document(s) Glucose, Fasting 141 mg/dL 70-100 Above high normal M EDENT ([facility] Blood Urea Nitrogen 11 mg/dL 7-18 Normal (applies to non-nume reid results) [facility] ([facility] Creatinine For GFR 0.80 mg/dL 0.70-1.30 Normal (applies to non -numeric results) [facility] ([facility] Glomerular Filtration Rate Laboratory test result Normal (applies to non- numeric results) [facility] ([facility] ) <content>Units are mL/min/1.73 m2</content>
<content></content>
<content>Chronic Kidney Disease Staging per NKF:</content>
<content></content>
<content>Stage I & II GFR >=60 Normal to Mildly Decreased</content>
<content>Stage III GFR 30- 59 Moderately Decreased</content>
<content>Stage IV GFR 15-29 Severely Decreased</content>
<content>Stage V GFR <15 Very Little GFR Left</content>
<content>ESRD GFR <15 on GRAIN TRADER</content>
<content></content> Sodium Level 138 meq/L 136-145 Normal (applies to non-numeric res ults) [facility] ([facility] Potassium Serum 4.0 meq/L 3.5-5.1 Normal (applies to non-numeric results) [facility] ([facility] Chloride Level 107 meq/L 98-107 Normal (applies to non-numeric r esults) [facility] ([facility] Carbon Dioxide Level 25 meq/L 21-32 Normal (applies to non-num mckenzie results) [facility] ([facility] Anion Gap 6 meq/L 8-16 Below low normal [facility] ( [facility] Calcium Level 8.8 mg/dL 8.8-10.2 Normal (applies to non-numeric re sults) [facility] ([facility] Ast/Sgot 13 U/L 7-37 Normal (applies to non-numeric resul ts) [facility] ([facility] Alkaline Phosphatase 74 U/L 45-117 Normal (applies to non-num mckenzie results) [facility] Alt/SGPT 17 U/L 12-78 Normal (applies to non-numeric resul ts) [facility] ([facility] Bilirubin,Total 0.5 mg/dL 0.2-1.0 Normal (applies to non-numeric results) [facility] ([facility] Total Protein 6.6 GM/DL 6.4-8.2 Normal (applies to non-numeric re sults) [facility] ([facility] Albumin 3.8 GM/DL 3.2-5.2 Normal (applies to non-numeric resul ts) [facility] ([facility] Albumin/Globulin Ratio 1.4 Normal (applies to non-n umeric results) [facility] ([facility] ID Date Data Source [id number] 01/12/2021 08:04:00 AM EST [facility] Name Value Range Interpretation Code Description Data Susan rce(s) Supporting Document(s) Glucose, Fasting 166 mg/dL 70-100 Above high normal M [facility]ENT ([facility] Blood Urea Nitrogen 14 mg/dL 7-18 Normal (applies to non-nume reid results) [facility] ([facility] Glomerular Filtration Rate Laboratory test result Normal (applies to non- numeric results) [facility] ([facility] ) <content>Units are mL/min/1.73 m2</content>
<content></content>
<content>Chronic Kidney Disease Staging per NKF:</content>
<content></content>
<content>Stage I & II GFR >=60 Normal to Mildly Decreased</content>
<content>Stage III GFR 30- 59 Moderately Decreased</content>
<content>Stage IV GFR 15-29 Severely Decreased</content>
<content>Stage V GFR <15 Very Little GFR Left</content>
<content>ESRD GFR <15 on GRAIN TRADER</content>
<content></content> Creatinine For GFR 0.85 mg/dL 0.70-1.30 Normal (applies to non -numeric results) [facility] ([facility] Sodium Level 138 meq/L 136-145 Normal (applies to non-numeric res ults) [facility] ([facility] Potassium Serum 3.8 meq/L 3.5-5.1 Normal (applies to non-numeric results) [facility] ([facility] Chloride Level 106 meq/L 98-107 Normal (applies to non-numeric r esults) [facility] ([facility] Anion Gap 6 meq/L 8-16 Below low normal [facility] ( [facility] Carbon Dioxide Level 26 meq/L 21-32 Normal (applies to non-num mckenzie results) [facility] ([facility] Calcium Level 9.1 mg/dL 8.8-10.2 Normal (applies to non-numeric re sults) [facility] ([facility] Ast/Sgot 8 U/L 7-37 Normal (applies to non-numeric resul ts) [facility] ([facility] Alt/SGPT 18 U/L 12-78 Normal (applies to non-numeric resul ts) [facility] ([facility] Alkaline Phosphatase 71 U/L 45-117 Normal (applies to non-num mckenzie results) [facility] ([facility] Total Protein 6.6 GM/DL 6.4-8.2 Normal (applies to non-numeric re sults) [facility] ([facility] Bilirubin,Total 0.8 mg/dL 0.2-1.0 Normal (applies to non-numeric results) [facility] ([facility] Albumin 4.0 GM/DL 3.2-5.2 Normal (applies to non-numeric resul ts) [facility] ([facility] Albumin/Globulin Ratio 1.5 Normal (applies to non-n umeric results) [facility] ([facility] ID Date Data Source [id number] 01/12/2021 08:04:00 AM EST [facility] ([facility] Name Value Range Interpretation Code Description Data Susan rce(s) Supporting Document(s) Platelets reticulated/100 platelets in Blood by Automated count 3.9 % 0.0-10.91 Normal (applies to non-numeric results) [facility] ([facility] ID Date Data Source [id number] 01/12/2021 08:04:00 AM EST [facility] ([facility] Name Value Range Interpretation Code Description Data Susan rce(s) Supporting Document(s) Red Blood Count 3.82 10 4.30-6.10 Below low normal [facility] ([facility] White Blood Count 1.8 10 4.0-10.0 Below low normal M [facility] ([facility] Hematocrit 35.8 % 42.0-52.0 Below low normal [facility] ( [facility] Hemoglobin 12.3 g/dL 13.5-17.5 Below low normal [facility] ( [facility] Mean Corpuscular Hemoglobin 32.2 pg 27.0-33.0 Norm al (applies to non-numeric results) [facility] ([facility] ) Mean Corpuscular Volume 93.7 fl 80.0-96.0 Normal ( applies to non-numeric results) [facility] ([facility] ) Mean Corpuscular HGB Conc 34.4 g/dL 32.0-36.5 Normal (applies to non-numeric results) [facility] ([facility] ) Red Cell Distribution Width 11.9 % 11.5-14.5 Norm al (applies to non-numeric results) [facility] ([facility] ) Platelet Count, Automated 72 10 150-450 Below low normal [facility] ([facility] Neutrophils % 67.9 % 36.0-66.0 Above high normal [facility] ([facility] Lamar % 5.0 % 2.0-8.0 Normal (applies to non-numeric resul ts) [facility] ([facility] Lymph % 23.2 % 24.0-44.0 Below low normal [facility] ( [facility] Eos % 1.1 % 0.0-3.0 Normal (applies to non-numeric resul ts) [facility] ([facility] Baso % 0.0 % 0.0-1.0 Normal (applies to non-numeric resul ts) [facility] ([facility] Immature Granulocyte % 2.8 % 0-3.0 Normal (applies to non-n umeric results) [facility] ([facility] Nucleated Red Blood Cell % 0.0 % 0-0 Normal (applies to n on-numeric results) [facility] ([facility] Neutrophils # 1.2 10 1.5-8.5 Below low normal [facility] ([facility] Lymph # 0.4 10 1.5-5.0 Below low normal [facility] ( [facility] Lamar # 0.1 10 0.0-0.8 Normal (applies to non-numeric resul ts) [facility] ([facility] Baso # 0.0 10 0.0-0.2 Normal (applies to non-numeric resul ts) [facility] ([facility] Eos # 0.0 10 0.0-0.5 Normal (applies to non-numeric resul ts) [facility] ([facility] ID Date Data Source [id number] 01/05/2021 09:39:00 AM EDT [facility] ([facility] Name Value Range Interpretation Code Description Data Susan rce(s) Supporting Document(s) Cancer Ag 19-9 [Units/volume] in Serum or Plasma 82333.3 U/ML Above high normal [facility] ([facility] ) THE CA 19-9 ASSAY IS PERFORMED ON THE [place] BY CHEMILUMINESCENCE AND SHOULD NOT BE COMPARED INTERCHANGEABLY WITH OTHER METHODS. IT SHOULD NOT BE USED ALONE A SCREENING TEST OR DIAGNOSIS FOR THE PRESENCE OR ABSENCE OF MALIGNANT DISEASE. PREDICTIONS OF DISEASE RECURRENCE SHOULD NOT BE BASED SOLELY ON VALUES OBTAINED FROM SERIAL PATIENT SERUM VALUES. ID Date Data Source [id number] 01/05/2021 09:39:00 AM EDT [place] ([facility] Name Value Range Interpretation Code Description Data Susan rce(s) Supporting Document(s) Glucose, Fasting 158 mg/dL 70-100 Above high normal [facility] Creatinine For GFR 0.84 mg/dL 0.70-1.30 Normal (applies to non -numeric results) [facility] ([facility] Blood Urea Nitrogen 13 mg/dL 7-18 Normal (applies to non-nume reid results) [facility] Glomerular Filtration Rate Laboratory test result Normal (applies to non- numeric results) [facility] ([facility] ) <content>Units are mL/min/1.73 m2</content>
<content></content>
<content>Chronic Kidney Disease Staging per NKF:</content>
<content></content>
<content>Stage I & II GFR >=60 Normal to Mildly Decreased</content>
<content>Stage III GFR 30- 59 Moderately Decreased</content>
<content>Stage IV GFR 15-29 Severely Decreased</content>
<content>Stage V GFR <15 Very Little GFR Left</content>
<content>ESRD GFR <15 on GRAIN TRADER</content>
<content></content> Sodium Level 138 meq/L 136-145 Normal (applies to non-numeric res ults) [facility] ([facility] Potassium Serum 3.8 meq/L 3.5-5.1 Normal (applies to non-numeric results) [facility] ([facility] Carbon Dioxide Level 27 meq/L 21-32 Normal (applies to non-num mckenzie results) [place] ([facility] Chloride Level 105 meq/L 98-107 Normal (applies to non-numeric r esults) [facility] ([facility] Calcium Level 9.1 mg/dL 8.8-10.2 Normal (applies to non-numeric re sults) [facility] ([facility] Anion Gap 6 meq/L 8-16 Below low normal [facility] ( [facility] Alt/SGPT 16 U/L 12-78 Normal (applies to non-numeric resul ts) [facility] ([facility] Ast/Sgot 11 U/L 7-37 Normal (applies to non-numeric resul ts) [facility] ([facility] Bilirubin,Total 0.7 mg/dL 0.2-1.0 Normal (applies to non-numeric results) [facility] ([facility] Alkaline Phosphatase 70 U/L 45-117 Normal (applies to non-num mckenzie results) [facility] ([facility] Total Protein 7.0 GM/DL 6.4-8.2 Normal (applies to non-numeric re sults) [facility] ([facility] Albumin 4.0 GM/DL 3.2-5.2 Normal (applies to non-numeric resul ts) [facility] ([facility] Albumin/Globulin Ratio 1.3 Normal (applies to non-n umeric results) [facility] ([facility] ID Date Data Source [id number] 01/05/2021 09:39:00 AM EDT [facility] ([facility] Name Value Range Interpretation Code Description Data Susan rce(s) Supporting Document(s) White Blood Count 7.2 10 4.0-10.0 Normal (applies to non-numeri c results) [facility] ([facility] Red Blood Count 4.14 10 4.30-6.10 Below low normal MED ENT ([facility] Hemoglobin 13.5 g/dL 13.5-17.5 Normal (applies to non-numeric resul ts) [facility] ([facility] Hematocrit 40.0 % 42.0-52.0 Below low normal [facility] ( [facility] Mean Corpuscular HGB Conc 33.8 g/dL 32.0-36.5 Normal (applies to non-numeric results) [facility] ([facility] ) Mean Corpuscular Volume 96.6 fl 80.0-96.0 Above high normal [facility] ([facility] Mean Corpuscular Hemoglobin 32.6 pg 27.0-33.0 Norm al (applies to non-numeric results) [facility] ([facility] ) Red Cell Distribution Width 12.7 % 11.5-14.5 Norm al (applies to non-numeric results) [facility] ([facility] ) Platelet Count, Automated 125 10 150-450 Below low normal [facility] ([facility] Neutrophils % 55.8 % 36.0-66.0 Normal (applies to non-numeric re sults) [facility] ([facility] Lymph % 9.5 % 24.0-44.0 Below low normal [facility] ( [facility] Eos % 1.1 % 0.0-3.0 Normal (applies to non-numeric resul ts) [facility] ([facility] Lamar % 31.6 % 2.0-8.0 Above high normal [facility] ([facility] Immature Granulocyte % 1.9 % 0-3.0 Normal (applies to non-n umeric results) [facility] ([facility] Baso % 0.1 % 0.0-1.0 Normal (applies to non-numeric resul ts) [facility] ([facility] Nucleated Red Blood Cell % 0.0 % 0-0 Normal (applies to n on-numeric results) [facility] ([facility] Neutrophils # 4.0 10 1.5-8.5 Normal (applies to non-numeric re sults) [facility] ([facility] Lamar # 2.3 10 0.0-0.8 Above high normal [facility] ([facility] Lymph # 0.7 10 1.5-5.0 Below low normal [facility] ( [facility] Eos # 0.1 10 0.0-0.5 Normal (applies to non-numeric resul ts) [facility] ([facility] Baso # 0.0 10 0.0-0.2 Normal (applies to non-numeric resul ts) [facility] ([facility] ID Date Data Source [id number] 12/30/2020 08:54:54 AM EDT [facility] Name Value Range Interpretation Code Description Data Susan rce(s) Supporting Document(s) &PDF [facility] [id number]/JRLrmIZZqj2DvBLjlKVb3NQvwTMYdK7PyhEqlSDFTWWeFVXjUHBfVXuMJSX5o yKE [file] AgICAgICAgICAgICAgICAgICAgICAgICAgICAgICAgICAgICAgICAgICAgICAgICAgICAgICAgICAgIC TfZPCiYSNxZNDyVNIxQZMrOT5EZJXvHFKyMPRoQHHx ICAgICAgICAgICAgICAgICAgICAgICAgICAgICAgICAgICAgICAgICAgICAgICAgICAgICAgICAgICAg OBGaEOFfJTMrFNKgPJLwLKCtZKZkYMRkNCZcXF9PTDFgREBzGDJeROCoOVMpGKEvZKFsSTSuSZCaERAh ICAgICAgICAgICAgICAgICAgICAgICAgICAgICAgIC WhQPJrAPTkHTQfMSQoRBErOSHoOBLnEOEfXOOxDUOzMHYeDPGwFN7UQQDyNPUuVXSiZGOrSJXnBIFoWF AgICAgICAgICAgICAgICAgICAgICAgICAgICAgICAgICAgICAgICAgICAgICAgICAgICAgICAgICAgIC XoMCTzMDMzOJItCXLwWWLsOSKjXL2AWMJyMCMgVSPt ICAgICAgICAgICAgICAgICAgICAgICAgICAgICAgICAgICAgICAgICAgICAgICAgICAgICAgICAgICAg JXPiQNLqTYQxZTClOQQeAWSpUXJtBJOpXVUnJHZpEK7IKKEfVORyDOXyROOpFITmTMYxQMHvLBIkHGBs ICAgICAgICAgICAgICAgICAgICAgICAgICAgICAgIC JnIDIiHBJcIUPiLAUeWNXhKEUyKYScBCSxKIKvNUIlBNMcZXRqLKYcLD1OKYWqXIAlQGSnXVMnKBVdQV AgICAgICAgICAgICAgICAgICAgICAgICAgICAgICAgICAgICAgICAgICAgICAgICAgICAgICAgICAgIC IeMOQzKYDgPWZfWZPyMIAnKGXlPJLcQQ0OMRJmNQUq ICAgICAgICAgICAgICAgICAgICAgICAgICAgICAgICAgICAgICAgICAgICAgICAgICAgICAgICAgICAg QRQeZYWtWNHuSITdTGLsCVMnPKNkUVPpHBNnDQFqZIRlFU7ZEBWiDNEtXDWgJKWaKBMxEIRwVUEcXGEt ICAgICAgICAgICAgICAgICAgICAgICAgICAgICAgIC DiYQVbVWKjWZGlNHTjBJUeREZfWRXpXYUgRQBuKSOfUNGrLMOkFEPiVVRmYO1YHRLaDCBjCDTjQIDhMW AgICAgICAgICAgICAgICAgICAgICAgICAgICAgICAgICAgICAgICAgICAgICAgICAgICAgICAgICAgIC NkXUOrKVPqFSEsEPMcCNNeRSLwYTAtCJRcAY3TNV82 hPHtn3N7SQQdHQ1suwl/Rj3FWFwxftPoeDPeTF1BXaIdPD3thy8ZQqHmQU2hky1ZSMsNGhMbO9G6mTVr WRZsCWWAPyDxQ45lRPwvIt67WIvsDBZvJmRyMGd0Ch7BSeDuM9goQGUwMrU5WIKsSbN2ACXwXhR6SSQu AjJaZZngDS0In1YmaQOeKNo+Gv6OQG0ti9NyOFq9Uz BbKG2mea7JKOqVUoQkL3L6pFGtU0U1WTzkMk7IREXnMIQfFJFnDDYKCAbgWP4UHI7hyiO7ZC4JuUBnQB WjWVJhsKMhYTd4N00meDShDAgfOR3XCQE+Sigifredo+Jc3RIUUtFUYjLWYkJkKwCYRIAmPjT86fzVHmLBHeOB TkJUUcAu4YHHPvX4LxrwAvkYvciuEbGRIcRYHITQ4H HFzqpeDbbEOkkKfyUH74fTmyNI7TAu3JYpFpJN8jpf1BfWJeBm8FMHF2TE9CCBRaMPNbGPPmLKD0OBHz VcXjBWerJETqMLVfTEC0DVFmXHAvNQ6MXqPeOTStMqP2QtRiZRMfXFJscs6NNRLgBHRoDpF9KfGzGWUs OQKwLYmoFUXtEFObJHzpDIZyLDNfTK1MSvWzNQAiUS K7MWLyZJDpMWPhnu9ZWHImYITyVYV7DJTtMMXvQWXnIMugAHQmQRU3PMk7OBWtHKOpCD7AEtPmUWPtJL zfRJOkAKJjGXGzer5JUNYeDIUsZCZ5CfBnMWKgGCKxYNwsNBHrSVOjKDDwODLxGDSbRP2KEiFoBGVpFE F3KwTpZNWvTXLroy8BLHQfKLEcRObhUsQyHVGxLTOy PUgqECJzAJZhIGUaCEVxAPNrKA9ODdKwJOYwQJJ6JTkvTGHbHLEubr5EKEUbRYMhExB6IUHuDAEaPHJz ARmoOEPuGTQiHaH7JPQsSEZxRO8GFbSkCBKiYIWzMPpsEFGlBEEusb7SSDEkIBSnUEItENXaBSTlVNHq GRoiVTIbLNS9QZlaLSFwDHOjHW7OWeFuRJGsQAM9DY DkTYXmRBCzpy5RBUQgWMKqSTy0YqWjFBRpHVZxSJnkXGTqJAS9RISvDLAaARHzRL0PHbXtHDSuCXZ7AM tcKRYeRSPyzl9PQZBwKCRrInIcLQEiIKThJWJmJMsdDXYsXMF5Mul1IONjMMKuQT3RLrFrLJNjVSp3EZ soCVKiATKdov7YTFYqOXAiCvm8VIUqQNGxVHDfFEeh IYHhDHA1BXi2LVLbLDBnKF2NOkKhOIGyMFy1AvUvYWTlJWIiod3GVYApTJRiDFG8MmSmZTOqXANyFJjg JRBeVLN2VTM2UOIcVDHiNX0BCbOkUMNsSRokXoVlYUTwZQYydi4JLBVhGVUuNJH2ARUwYWDvBUEqXUwq CADdLPN3GlY8DUFsZIZuGD3DEuCoRYFjWNr0MHSmWJ RbDTNzbn2YSHBeNLUaPPB9PxRpNIVcRKElBFqdLAOwOSQyGLu2TQXbZUSpOS6GYzFvJSPoBtG5FYDhBJ YyEELixp1SDKXoUCJdPFN0KbZmHZBkDAGgGYlnPPDdQNYdWxAeFBYlBZChSV7WAvDeBMHiZyF4KZGzZG QzLBIafj8DIDYtHUQbMcJkHgAyFDIsUEZiOUpgLCHz ZYRpXwwsURSmPMJxHK0HZhCiMHdrNLZZJhd0FUiyW4g5YZM6YL2SN8Isq5LxTFYqQALCGNvcZA9pffRe ABOaSf2LC9pTWylmSJI4DoIpYePvFmAxLADtQVG6OULsTkZ2QQFmR1ZfZk6gNWS0PsZ0SYTmZWBdXIS5 PnR0QGv7BwJyKbm2GWXpWGNcZdJaMA3MNo0XBtX4NNM2dDVrWg4BVoS3AjJPRaQzOH3OTLv= ID Date Data Source [id number] 12/10/2020 11:11:00 AM EDT [facility] ([facility] Name Value Range Interpretation Code Description Data Susan rce(s) Supporting Document(s) White Blood Count 10.7 10 4.0-10.0 Above high normal [facility] ([facility] Red Blood Count 4.25 10 4.30-6.10 Below low normal MED E[facility] ([facility] Hemoglobin 13.9 g/dL 13.5-17.5 Normal (applies to non-numeric resul ts) [facility] ([facility] Hematocrit 41.6 % 42.0-52.0 Below low normal [facility] ( [facility] Mean Corpuscular Volume 97.9 fl 80.0-96.0 Above high normal [facility] ([facility] Mean Corpuscular Hemoglobin 32.7 pg 27.0-33.0 Norm al (applies to non-numeric results) [facility] ([facility] ) Red Cell Distribution Width 14.1 % 11.5-14.5 Norm al (applies to non-numeric results) [facility] ([facility] ) Mean Corpuscular HGB Conc 33.4 g/dL 32.0-36.5 Normal (applies to non-numeric results) [facility] ([facility] ) Platelet Count, Automated 116 10 150-450 Below low normal [facility] ([facility] Neutrophils % 54.3 % 36.0-66.0 Normal (applies to non-numeric re sults) [facility] ([facility] Lymph % 7.0 % 24.0-44.0 Below low normal [facility] ( [facility] Lamar % 33.2 % 2.0-8.0 Above high normal [facility] ([facility] Eos % 0.8 % 0.0-3.0 Normal (applies to non-numeric resul ts) [facility] ([facility] Baso % 0.4 % 0.0-1.0 Normal (applies to non-numeric resul ts) [facility] ([facility] Nucleated Red Blood Cell % 0.0 % 0-0 Normal (applies to n on-numeric results) [facility] ([facility] Immature Granulocyte % 4.3 % 0-3.0 Above high normal [facility] ([facility] Neutrophils # 5.8 10 1.5-8.5 Normal (applies to non-numeric re sults) [facility] ([facility] Lymph # 0.8 10 1.5-5.0 Below low normal [facility] ( [facility] Lamar # 3.5 10 0.0-0.8 Above high normal [facility] ([facility] Baso # 0.0 10 0.0-0.2 Normal (applies to non-numeric resul ts) [facility] ([facility] Eos # 0.1 10 0.0-0.5 Normal (applies to non-numeric resul ts) [facility] ([facility] ID Date Data Source [id number] 12/10/2020 11:11:00 AM EDT [facility] ([facility] Name Value Range Interpretation Code Description Data Susan rce(s) Supporting Document(s) Glucose, Fasting 129 mg/dL 70-100 Above high normal M [facility] ([facility] Blood Urea Nitrogen 14 mg/dL 7-18 Normal (applies to non-nume reid results) [facility] ([facility] Creatinine For GFR 0.79 mg/dL 0.70-1.30 Normal (applies to non -numeric results) [facility] ([facility] Glomerular Filtration Rate Laboratory test result Normal (applies to non- numeric results) [facility] ([facility] ) <content>Units are mL/min/1.73 m2</content>
<content></content>
<content>Chronic Kidney Disease Staging per NKF:</content>
<content></content>
<content>Stage I & II GFR >=60 Normal to Mildly Decreased</content>
<content>Stage III GFR 30- 59 Moderately Decreased</content>
<content>Stage IV GFR 15-29 Severely Decreased</content>
<content>Stage V GFR <15 Very Little GFR Left</content>
<content>ESRD GFR <15 on GRAIN TRADER</content>
<content></content> Potassium Serum 3.7 meq/L 3.5-5.1 Normal (applies to non-numeric results) [facility] ([facility] Sodium Level 135 meq/L 136-145 Below low normal [facility] ([facility] Carbon Dioxide Level 31 meq/L 21-32 Normal (applies to non-num mckenzie results) [facility] ([facility] Chloride Level 100 meq/L 98-107 Normal (applies to non-numeric r esults) [facility] ([facility] Anion Gap 4 meq/L 8-16 Below low normal [facility] ( [facility] Ast/Sgot 9 U/L 7-37 Normal (applies to non-numeric resul ts) [facility] ([facility] Calcium Level 9.9 mg/dL 8.8-10.2 Normal (applies to non-numeric re sults) [facility] ([facility] Alt/SGPT 13 U/L 12-78 Normal (applies to non-numeric resul ts) [facility] ([facility] Alkaline Phosphatase 75 U/L 45-117 Normal (applies to non-num mckenzie results) [facility] ([facility] Total Protein 7.7 GM/DL 6.4-8.2 Normal (applies to non-numeric re sults) [facility] ([facility] Bilirubin,Total 0.6 mg/dL 0.2-1.0 Normal (applies to non-numeric results) [facility] ([facility] Albumin 4.3 GM/DL 3.2-5.2 Normal (applies to non-numeric resul ts) [facility] ([facility] Albumin/Globulin Ratio 1.3 Normal (applies to non-n umeric results) [facility] ([facility] ID Date Data Source [id number] 12/10/2020 11:11:00 AM EDT [facility] Name Value Range Interpretation Code Description Data Susan rce(s) Supporting Document(s) Cancer Ag 19-9 [Units/volume] in Serum or Plasma 93470.8 U/ML Above high normal [facility] ([facility] ) THE CA 19-9 ASSAY IS PERFORMED ON THE [employer] BY CHEMILUMINESCENCE AND SHOULD NOT BE COMPARED INTERCHANGEABLY WITH OTHER METHODS. IT SHOULD NOT BE USED ALONE A SCREENING TEST OR DIAGNOSIS FOR THE PRESENCE OR ABSENCE OF MALIGNANT DISEASE. PREDICTIONS OF DISEASE RECURRENCE SHOULD NOT BE BASED SOLELY ON VALUES OBTAINED FROM SERIAL PATIENT SERUM VALUES. ID Date Data Source [id number] 12/10/2020 11:11:00 AM EDT [facility] Name Value Range Interpretation Code Description Data Susan rce(s) Supporting Document(s) Blood Culture Laboratory test result [facility] ([facility] No growth after 72 hours . All specimens observed for 5 days. Results final at that time. No growth after 48 hours . All specimens observed for 5 days. Results final at that time. No growth after 24 hours . All specimens observed for 5 days. Results final at that time. NO GROWTH AFTER 5 DAYS ID Date Data Source [id number] 12/10/2020 11:10:00 AM EDT [facility] ([facility] Name Value Range Interpretation Code Description Data Susan rce(s) Supporting Document(s) Blood Culture Laboratory test result [facility] ([facility] No growth after 72 hours . All specimens observed for 5 days. Results final at that time. No growth after 48 hours . All specimens observed for 5 days. Results final at that time. No growth after 24 hours . All specimens observed for 5 days. Results final at that time. NO GROWTH AFTER 5 DAYS ID Date Data Source [id number] 11/10/2020 09:26:00 AM EDT [facility] ([facility] Name Value Range Interpretation Code Description Data Susan rce(s) Supporting Document(s) Laboratory test finding (navigational concept) Laboratory test r esult Normal (applies to non-numeric results) [facility] ([facility] See Pathology Report Specimen Collection for Pathology Reference Lab Testing. Refer to [facility] Pathology Report for Results:[id number] Laboratory test finding (navigational concept) Laboratory test r esult Normal (applies to non-numeric results) [facility] ([facility] See Pathology Report Specimen Collection for Pathology Reference Lab Testing. Refer to [facility] Pathology Report for Results: [id number] ID Date Data Source [id number] 11/12/2020 02:00:00 PM [facility] Cytogenetics ReportName: TRACE BEALMRN: [id number] Number: [id number] Date: 11/10/2020 00:00Received Date: 11/10/2020 15:01Physician(s): JASON ZARAGOZA,JASON NEWTON,MDSpecimen(s) ReceivedA: Peripheral Blood (U-IF)Clinical [id number] patient with leukocytosis being evaluated for the BCR-RJD8ctnrrfevaxixp. TEST REQUESTED/PERFORMED: Fluorescence in situ hybridization (FISH) DiagnosisThe FISH study was negative for the BCR/ABL1 [t(9;22)] rearrangement,providing no evidence of involvement by chronic myeloid leukemia.Electronically Signed By Ana Rae MD, PhD AttendingPathologist 11/12/2020 14:00:51Gross DescriptionFluorescence in situ Hybridization (FISH)nuc holly (ABL1,BCR)x2[194/200]DescriptionThe fluorescence in situ hybridization (FISH) analysis showed a normalsignal pattern for BCR and ABL1, providing no evidence of a t(9;22). Test DataSpecimen Processed: Peripheral BloodFluorescence in situ Hybridization (FISH): 24 HR Unstimulated Probe Normal Cut-off Nuclei Analyzed FISH SIGNAL PATTERNS Normal Abnormal NKCS *LSI ABL1(9q34.1) SO LSI BCR(22q11.2) SG ES 3% 200 2O2% 0% 3% Vendor: *[employer] Probes: LSI: Locus Specific Probe; ES: Extra Signal; DCDF: Dual ColorDual Fusion Fluorochromes/ Signals: SG: Spectrum Green; SO: Spectrum [place]; Y:Yellow (Fusion) NKCS: Signals with No Known Clinical SignificanceDisclaimer: The FISH test was developed and its performance was validatedby the Cytogenetics section of the Department of Clinical Pathology. Thistest has not been cleared or approved by the U.S. Food and DrugAdministration (FDA). The FDA has determined that such approval is notnecessary. However, the procedure is considered investigational, andshould not be used as the sole criteria for diagnosis. Name Value Range Interpretation Code Description Data Susan rce(s) Supporting Document(s) ID Date Data Source [id number] 11/06/2020 09:41:00 AM [facility] Name Value Range Interpretation Code Description Data Susan rce(s) Supporting Document(s) Cancer Ag 19-9 [Units/volume] in Serum or Plasma 6514.9 U/ML Above high normal [facility] ([facility] ) THE CA 19-9 ASSAY IS PERFORMED ON THE [employer] BY CHEMILUMINESCENCE AND SHOULD NOT BE COMPARED INTERCHANGEABLY WITH OTHER METHODS. IT SHOULD NOT BE USED ALONE A SCREENING TEST OR DIAGNOSIS FOR THE PRESENCE OR ABSENCE OF MALIGNANT DISEASE. PREDICTIONS OF DISEASE RECURRENCE SHOULD NOT BE BASED SOLELY ON VALUES OBTAINED FROM SERIAL PATIENT SERUM VALUES. ID Date Data Source [id number] 11/06/2020 09:41:00 AM EDT [facility] ([facility] Name Value Range Interpretation Code Description Data Susan rce(s) Supporting Document(s) Glucose, Fasting 133 mg/dL 70-100 Above high normal M [facility] ([facility] Blood Urea Nitrogen 16 mg/dL 7-18 Normal (applies to non-nume reid results) [facility] ([facility] Creatinine For GFR 0.71 mg/dL 0.70-1.30 Normal (applies to non -numeric results) [facility] ([facility] Glomerular Filtration Rate Laboratory test result Normal (applies to non- numeric results) [facility] ([facility] ) <content>Units are mL/min/1.73 m2</content>
<content></content>
<content>Chronic Kidney Disease Staging per NKF:</content>
<content></content>
<content>Stage I & II GFR >=60 Normal to Mildly Decreased</content>
<content>Stage III GFR 30- 59 Moderately Decreased</content>
<content>Stage IV GFR 15-29 Severely Decreased</content>
<content>Stage V GFR <15 Very Little GFR Left</content>
<content>ESRD GFR <15 on GRAIN TRADER</content>
<content></content> Sodium Level 139 meq/L 136-145 Normal (applies to non-numeric res ults) [facility] ([facility] Potassium Serum 3.8 meq/L 3.5-5.1 Normal (applies to non-numeric results) [facility] ([facility] Chloride Level 104 meq/L 98-107 Normal (applies to non-numeric r esults) [facility] ([facility] Carbon Dioxide Level 26 meq/L 21-32 Normal (applies to non-num mckenzie results) [facility] ([facility] Calcium Level 8.9 mg/dL 8.8-10.2 Normal (applies to non-numeric re sults) [facility] ([facility] Anion Gap 9 meq/L 8-16 Normal (applies to non-numeric resul ts) [facility] ([facility] Ast/Sgot 18 U/L 7-37 Normal (applies to non-numeric resul ts) [facility] ([facility] Alt/SGPT 16 U/L 12-78 Normal (applies to non-numeric resul ts) [facility] ([facility] Alkaline Phosphatase 101 U/L 45-117 Normal (applies to non-num mckenzie results) [facility] ([facility] Bilirubin,Total 0.4 mg/dL 0.2-1.0 Normal (applies to non-numeric results) [facility] ([facility] Total Protein 7.1 GM/DL 6.4-8.2 Normal (applies to non-numeric re sults) [facility] Albumin 3.5 GM/DL 3.2-5.2 Normal (applies to non-numeric resul ts) [facility] ([facility] Albumin/Globulin Ratio 1.0 Normal (applies to non-n umeric results) [facility] ([facility] ID Date Data Source [id number] 11/06/2020 09:41:00 AM EDT [facility] ([facility] Name Value Range Interpretation Code Description Data Susan rce(s) Supporting Document(s) White Blood Count 38.5 10 4.0-10.0 Above upper panic limits [facility] ([facility] Red Blood Count 3.71 10 4.30-6.10 Below low normal [facility] ([facility] Hemoglobin 12.0 g/dL 13.5-17.5 Below low normal [facility] ( [facility] Hematocrit 36.0 % 42.0-52.0 Below low normal [facility] ( [facility] Mean Corpuscular Volume 97.0 fl 80.0-96.0 Above high normal [facility] ([facility] Mean Corpuscular Hemoglobin 32.3 pg 27.0-33.0 Norm al (applies to non-numeric results) [facility] ([facility] ) Mean Corpuscular HGB Conc 33.3 g/dL 32.0-36.5 Normal (applies to non-numeric results) [facility] ([facility] ) Red Cell Distribution Width 13.8 % 11.5-14.5 Norm al (applies to non-numeric results) [facility] ([facility] ) Platelet Count, Automated 210 10 150-450 Normal (applies to non-numeric results) [facility] ([facility] ) Neutrophils % 62.7 % 36.0-66.0 Normal (applies to non-numeric re sults) [facility] ([facility] Lymph % 4.1 % 24.0-44.0 Below low normal [facility] ( [facility] Lamar % 21.0 % 2.0-8.0 Above high normal [facility] ([facility] Eos % 0.1 % 0.0-3.0 Normal (applies to non-numeric resul ts) [facility] ([facility] Baso % 0.7 % 0.0-1.0 Normal (applies to non-numeric resul ts) [facility] ([facility] Immature Granulocyte % 11.4 % 0-3.0 Above high normal [facility] ([facility] Nucleated Red Blood Cell % 0.0 % 0-0 Normal (applies to n on-numeric results) [facility] ([facility] Neutrophils # 24.2 10 1.5-8.5 Above high normal [facility] ([facility] Lymph # 1.6 10 1.5-5.0 Normal (applies to non-numeric resul ts) [facility] ([facility] Lamar # 8.1 10 0.0-0.8 Above high normal [facility] ([facility] Eos # 0.0 10 0.0-0.5 Normal (applies to non-numeric resul ts) [facility] ([facility] Baso # 0.3 10 0.0-0.2 Above high normal [facility] ([facility] ID Date Data Source [id number] 10/23/2020 06:42:00 AM EDT [facility] ([facility] Name Value Range Interpretation Code Description Data Susan rce(s) Supporting Document(s) Lactate [Mass/volume] in Serum or Plasma 3.0 mmol/L 0.4-2.0 Above upper panic limits [facility] ([facility] ) Y/N query for Sepsis Lactate Rule: Y ID Date Data Source [id number] 10/23/2020 06:42:00 AM EDT [facility] ([facility] Name Value Range Interpretation Code Description Data Susan rce(s) Supporting Document(s) Influenza A Amplification Laboratory test result Normal (applies to non- numeric results) [facility] ([facility] ) Negative results do not preclude influen za or RSV virus infection and should not be used as the sole basis for treatment or other patient management decisions. Influenza B Amplification Laboratory test result Normal (applies to non- numeric results) [facility] ([facility] ) Negative results do not preclude influen za or RSV virus infection and should not be used as the sole basis for treatment or other patient management decisions. RSV Amplification Laboratory test result Normal (applies to non-numeric results) [facility] ([facility] ) Negative results do not preclude influen za or RSV virus infection and should not be used as the sole basis for treatment or other patient management decisions. Laboratory test finding (navigational concept) Laboratory test r esult Normal (applies to non-numeric results) [facility] ([facility] A false negative result may occur if a s pecimen is improperly collected, transported or handled. False [...] pathogens. DISCLAIMER: Testing was performed using the [employer] SARS-CoV-2 test. This test was developed and its performance characteristics determined by [employer]. This test has not been FDA cleared [...] the authorization is terminated or revoked sooner. ID Date Data Source [id number] 10/23/2020 06:42:00 AM EDT [facility] Name Value Range Interpretation Code Description Data Susan rce(s) Supporting Document(s) SARS coronavirus 2 RNA [Presence] in Res piratory specimen by DUSTIN with probe detection NEGATIVE [place] This lab was ordered by [facility] a nd reported by [facility]. ID Date Data Source [id number] 10/23/2020 06:38:00 AM EDT [facility] ([facility] Name Value Range Interpretation Code Description Data Susan rce(s) Supporting Document(s) Glucose, Fasting 215 mg/dL 70-100 Above high normal M [facility] ([facility] Blood Urea Nitrogen 15 mg/dL 7-18 Normal (applies to non-nume reid results) [facility] ([facility] Creatinine For GFR 1.13 mg/dL 0.70-1.30 Normal (applies to non -numeric results) [facility] ([facility] Glomerular Filtration Rate Laboratory test result Normal (applies to non- numeric results) [facility] ([facility] ) <content>Units are mL/min/1.73 m2</content>
<content></content>
<content>Chronic Kidney Disease Staging per NKF:</content>
<content></content>
<content>Stage I & II GFR >=60 Normal to Mildly Decreased</content>
<content>Stage III GFR 30- 59 Moderately Decreased</content>
<content>Stage IV GFR 15-29 Severely Decreased</content>
<content>Stage V GFR <15 Very Little GFR Left</content>
<content>ESRD GFR <15 on GRAIN TRADER</content>
<content></content> Sodium Level 137 meq/L 136-145 Normal (applies to non-numeric res ults) [facility] ([facility] Chloride Level 102 meq/L 98-107 Normal (applies to non-numeric r esults) [facility] ([facility] Potassium Serum 3.6 meq/L 3.5-5.1 Normal (applies to non-numeric results) [facility] Carbon Dioxide Level 24 meq/L 21-32 Normal (applies to non-num mckenzie results) [facility] ([facility] Anion Gap 11 meq/L 8-16 Normal (applies to non-numeric resul ts) [facility] Calcium Level 8.7 mg/dL 8.8-10.2 Below low normal [facility] ([facility] ID Date Data Source [id number] 10/23/2020 06:38:00 AM EDT [facility] ([facility] Name Value Range Interpretation Code Description Data Susan rce(s) Supporting Document(s) Prothrombin Time 15.9 s 12.7-14.5 Above high normal M EDENT ([facility] Inr 1.23 Normal (applies to non-numeric resul ts) [facility] ([facility] THERAPUTIC HUMAN INR VALUES INDICATIONS NORMAL RANGES PROPHYLAXIS/TREATMENT OF: VENOUS THROMBOSIS 2.0-3.0 PULMONARY EMBOLISM 2.0-3.0 PREVENTION OF SYSTEMIC EMBOLISM FROM: TISSUE HEART VALVES 2.0-3.0 ACUTE MYOCARDIAL INFARCTION 2.0-3.0 VALVULAR HEART DISEASE 2.0-3.0 ATRIAL FIBRILLATION 2.0-3.0 MECHANICAL VALVES(HIGH RISK) 2.5-3.5 RECURRENT MYOCARDIAL INFARCTION 2.5-3.5 ID Date Data Source [id number] 10/23/2020 06:38:00 AM EDT [facility] ([facility] Name Value Range Interpretation Code Description Data Susan rce(s) Supporting Document(s) CPK Creatine Phosphokinase 24 U/L 39-308 Below low normal [facility] ([facility] CK-MB Value Mass Laboratory test result Normal ( applies to non-numeric results) [facility] ([facility] ) MB/CK Relative Index 4.17 Above high normal [facility] ([facility] <content>DIAGNOSIS CRITERIA</content>
<content>MMB ng/ml Relative Index (RI)</content>
<content>NON-AMI < or = 5 N/A</content>
<content>PRINCE ZONE > 5 < or = 4</content>
<content>AMI > 5 > 4</content>
<content></content> Troponin I 0.15 ng/mL Above high normal [facility] ([facility] <content>Troponin I Reference Interval f or Siemens Sharon LOCI:</content>
<content></content>
<content>99th Percentile= 0.00-0.045 ng/ml</content>
<content></content>
<content>Risk Stratification:</content>
<content><= 0.10 ng/ml Decreased Risk for Adverse Clinical</content>
<content>Events.</content>
<content>0.10-1.50 ng/ml Increased Risk for Adverse Clinical</content>
<content>Events. Evaluation of additional</content>
<content>criterion and/or repeat testing in 2-6</content>
<content>hours is suggested to rule out myocardial</content>
<content>damage.</content>
<content>>= 1.50 ng/ml Indicative of Myocardial Injury.</content>
<content></content> ID Date Data Source [id number] 10/23/2020 06:38:00 AM EDT [facility] ([facility] Name Value Range Interpretation Code Description Data Susan rce(s) Supporting Document(s) Alt/SGPT 17 U/L 12-78 Normal (applies to non-numeric resul ts) [facility] ([facility] Ast/Sgot 13 U/L 7-37 Normal (applies to non-numeric resul ts) [facility] ([facility] Alkaline Phosphatase 132 U/L 45-117 Above high normal [facility] ([facility] Bilirubin,Total 0.9 mg/dL 0.2-1.0 Normal (applies to non-numeric results) [facility] ([facility] Bilirubin,Direct 0.4 mg/dL 0.0-0.2 Above high normal M EDENT ([facility] Total Protein 5.9 GM/DL 6.4-8.2 Below low normal [facility] T ([facility] Albumin/Globulin Ratio 1.3 Normal (applies to non-n umeric results) [facility] ([facility] Albumin 3.3 GM/DL 3.2-5.2 Normal (applies to non-numeric resul ts) [facility] ([facility] ID Date Data Source [id number] 10/23/2020 06:38:00 AM EDT [facility] ([facility] Name Value Range Interpretation Code Description Data Susan rce(s) Supporting Document(s) Natriuretic peptide.B prohormone N-Terminal [Mass/volu me] in Serum or Plasma 2080 pg/mL Above high normal [facility] ([facility] ID Date Data Source [id number] 10/23/2020 06:38:00 AM EDT [facility] ([facility] Name Value Range Interpretation Code Description Data Susan rce(s) Supporting Document(s) White Blood Count 23.5 10 4.0-10.0 Above high normal [facility] ([facility] A Pathologist review of this differentia l can help in the evaluation of a differential diagnosis. Please order a Pathologist Review (PERISM) if deemed necessary. Results are subject to change if a Pathologist Review is performed. Hemoglobin 13.6 g/dL 13.5-17.5 Normal (applies to non-numeric resul ts) [facility] ([facility] Red Blood Count 4.14 10 4.30-6.10 Below low normal [facility] ([facility] Hematocrit 38.9 % 42.0-52.0 Below low normal [facility] ( [facility] Mean Corpuscular Volume 94.0 fl 80.0-96.0 Normal ( applies to non-numeric results) [facility] ([facility] Mean Corpuscular HGB Conc 35.0 g/dL 32.0-36.5 Normal (applies to non-numeric results) [facility] ([facility] Mean Corpuscular Hemoglobin 32.9 pg 27.0-33.0 Norm al (applies to non-numeric results) [facility] ([facility] Red Cell Distribution Width 12.2 % 11.5-14.5 Norm al (applies to non-numeric results) [facility] ([facility] ) Platelet Count, Automated 49 10 150-450 Below low normal [facility] ([facility] Nucleated Red Blood Cell % 0.1 % 0-0 Above high normal [facility] ([facility] ID Date Data Source [id number] 10/23/2020 06:38:00 AM EDT [facility] Name Value Range Interpretation Code Description Data Susan rce(s) Supporting Document(s) Neutrophils 84 % 28-66 Above high normal [facility] ([facility] Lymphocytes 2 % 16-44 Below low normal [facility] ([facility] Bands 6 % Normal (applies to non-numeric resul ts) [facility] ([facility] RBC Morphology Laboratory test result Normal (applies to non-numeric results) [facility] ([facility] Monocytes 8 % 0-5 Above high normal [facility] ([facility] ID Date Data Source [id number] 10/23/2020 06:38:00 AM EDT [facility] ([facility] Name Value Range Interpretation Code Description Data Susan rce(s) Supporting Document(s) Platelets [#/volume] in Blood by Estimate Laboratory test result Normal (applies to non-numeric results) [facility] ([facility] Platelets reticulated/100 platelets in Blood by Automated count 7.1 % 0.0-10.91 Normal (applies to non-numeric results) [facility] ([facility] ID Date Data Source [id number] 10/23/2020 06:38:00 AM EDT [facility] ([facility] Name Value Range Interpretation Code Description Data Susan rce(s) Supporting Document(s) aPTT in Platelet poor plasma by Coagulation assay 30.9 s 25.9-37.0 Normal (applies to non-numeric results) [facility] ([facility] ID Date Data Source [id number] 10/23/2020 06:32:00 AM EDT [facility] ([facility] Name Value Range Interpretation Code Description Data Susan rce(s) Supporting Document(s) Laboratory test finding (navigational concept) 232 mg/dL 7 0-105 Above high normal [facility] ([facility] ) Laboratory test finding (navigational concept) 40.0 % 3 8.0-51.0 Normal (applies to non-numeric results) [facility] ([facility] Laboratory test finding (navigational concept) 136 meq/L 1 36-145 Normal (applies to non-numeric results) [facility] ([facility] Laboratory test finding (navigational concept) 3.6 meq/L 3 .5-5.1 Normal (applies to non-numeric results) [facility] ([facility] Laboratory test finding (navigational concept) 98 meq/L 9 8-109 Normal (applies to non-numeric results) [facility] ([facility] Laboratory test finding (navigational concept) 4.4 mg/dL 4 .5-5.3 Below low normal [facility] ([facility] ) Laboratory test finding (navigational concept) 20.0 MM/L 2 3.0-27.0 Below low normal [facility] ([facility] ) Laboratory test finding (navigational concept) 15 mg/dL 8 -26 Normal (applies to non-numeric results) [facility] ([facility]) Laboratory test finding (navigational concept) 0.9 mg/dL 0 .6-1.3 Normal (applies to non-numeric results) [facility] ([facility] ID Date Data Source [id number] 10/20/2020 05:29:08 PM EDT [facility] Name Value Range Interpretation Code Description Data Susan rce(s) Supporting Document(s) SODIUM 139 mmol/L (136-145) [facility] POTASSIUM 3.9 mmol/L (3.6-5.2) [facility] CHLORIDE 103 mmol/L (100-108) [facility] CO2 27 mmol/L (22-31) [facility] ANION GAP 9 mmol/L (7-16) [facility] UREA NITROGEN 12 mg/dL (7-24) [facility] CREATININE 0.86 mg/dL (0.80-1.30) [facility] BUN/CREAT RATIO 14.0 RATIO (10.0-20.0) [facility] GLUCOSE 104 mg/dL (70-99) H [facility] CALCIUM 8.6 mg/dL (8.4-10.2) [facility] GFR >60 ml/min/1.73m2 (>59) [facility] GFR ( AMER) >60 ml/min/1.73m2 (>59) [facility] GFR INTERPRETATION [facility] --NORMAL KIDNEY FUNCTION OR MILD DISEASE - GFR >OR= 60CHRONIC KIDNEY DISEASE - GFR 15 - 59RENAL FAILURE - GFR <15 Est. GFR calculation based on the MDRDstudy equation, which assumes a steadystate for creatinine. Est. GFR should notbe used for medication dosing. ID Date Data Source [id number] 10/20/2020 05:06:16 PM EDT [facility] Name Value Range Interpretation Code Description Data Susan rce(s) Supporting Document(s) WBC 18.5 10*3/uL (4.1-11.0) H [facility] RBC 4.03 10*6/uL (4.60-6.10) L [facility] HGB 13.2 g/dL (13.5-18.0) L [facility] HCT 38.3 % (41.0-53.0) L [facility] MCV 94.9 fL (80.0-95.0) [facility] MCH 32.8 pg (27.0-32.0) H [facility] MCHC 34.6 g/dL (32.0-36.0) [facility] RDW 12.7 % (10.5-14.5) [facility] PLT 54 10*3/uL (150-450) L [facility] MPV 9.9 fL (7.1-10.7) [facility] ID Date Data Source [id number] 10/20/2020 03:04:05 PM EDT [facility] Name Date of Age Gend*PT [id number] Trace Beal W 1940 80 years M IPPT Location Admission Date/Time Visit ID Attending [id number] 10/19/20 0736 --- Jeovany Fletcher MD([id number]) EPI ID CSN Admitting Provider [id number] Jeovany Fletcher MD([id number])DISCHARGE SUMMARYAdmission Date: 10/19/2020ischarge date: 10/20/20PRINCIPAL DIAGNOSIS: Severe symptomatic aortic stenosis post successful TAVR.CURRENT [id number] man with severe symptomatic aortic stenosis and mean gradient of 51who has minimal coronary artery disease and normal systolic function and wasfound to have pancreatic cancer. In anticipation of surgery he was referred forTAVR.HOSPITAL COURSETAVR was done yesterday with a 26 mm María 3 ultra valve. Echocardiogram donetoday showed a mean gradient of 12 and normal systolic function withoutsignificant insufficiency. The patient is feeding well and there was nobradycardia arrhythmia. His platelet count is low and will be rechecked priorto discharge. Pending his CBC and other lab counts he will be discharged tofollow with Dr. Coronado. We did not give Lasix and we kept his aspirin low-dosebecause of the low platelet count. If it drops below 30 aspirin 2 will be held.He will be on antibiotic prophylaxis prior to any dental procedure.TODAY'S PHYSICAL EXAM:BP 148/65 (BP Location: Left upper arm, Patient Position: Lying) | Pulse 105 |Temp 98.1 F (Oral) | Resp 21 | Ht 1.753 m (5' 9") | Wt 61.7 kg (136 lb) |SpO2 95% | BMI 20.08 kg/m Alert and oriented. Heart sounds are normal S1 and S2 without murmur or gallop.SIGNIFICANT DIAGNOSTIC DATA:Results from last 7 daysLab Units WBC 10*3/uL 14.2*HEMOGLOBIN g/dL 13.7HEMATOCRIT % 39.3*PLATELETS 10*3/uL 55*Results from last 7 daysLab Units SODIUM mmol/L 134*POTASSIUM mmol/L 3.9CHLORIDE mmol/L 100CO2 mmol/L 24BUN mg/dL 12CREATININE mg/dL 0.84GLUCOSE mg/dL 128*CALCIUM mg/dL 7.9*DISCHARGE MEDICATION LISTYour medication listASK your doctor about these medications Instructions Last Dose Given Morning Afternoon Evening Bedtime As Neededaspirin EC 81 MG EC tablet Take 1 tablet (81 mg total) by mouth dailyDaily Marcelle per tablet Take 1 tablet by mouth dailyFLAX PO Take by mouthKELP PO Take by mouthondansetron 8 MG tabletCommonly known as: ZOFRAN Take 8 mg by mouth every 8 (eight) hours as needed for nauseaprochlorperazine 10 MG tabletCommonly known as: COMPAZINE Take 10 mg by mouth every 8 (eight) hours as neededVitamin D 50 MCG (1999 UT) tablet Take 2,000 Units by mouth dailySignature: Jeovany Fletcher, MDDate: October 20, 2020Time: 3:01 [facility]: Dr. Singer document or parts of this document, were dictated using Voölks software. A reasonable attempt at proofreading has been made tominimize errors. Please call with any questions or corrections. Name Value Range Interpretation Code Description Data Susan rce(s) Supporting Document(s) ID Date Data Source [id number] 10/20/2020 11:46:53 AM EDT [facility] Name Value Range Interpretation Code Description Data Susan rce(s) Supporting Document(s) &PDF [facility] JYMZTz3bAeQELtNq67/WGQwtGGFyq4TeRYtpPLv1FAvuNLSaU2FurSatBFPAKHkGHIjQKXjCGaFJEA6h oRX [file] AgICAgICAgICAgICAgICAgICAgICAgICAgICAgICAgICAgICAgICAgICAgICAgICAgICAgICAgICAgIC AgDQogICAgICAgICAgICAgICAgICAgICAgICAgICAg ICAgICAgICAgICAgICAgICAgICAgICAgICAgICAgICAgICAgICAgICAgICAgICAgICAgICAgICAgICAg ICAgICAgICAgICAgDQogICAgICAgICAgICAgICAgICAgICAgICAgICAgICAgICAgICAgICAgICAgICAg ICAgICAgICAgICAgICAgICAgICAgICAgICAgICAgIC AgICAgICAgICAgICAgICAgICAgICAgDQogICAgICAgICAgICAgICAgICAgICAgICAgICAgICAgICAgIC AgICAgICAgICAgICAgICAgICAgICAgICAgICAgICAgICAgICAgICAgICAgICAgICAgICAgICAgICAgIC AgICAgDQogICAgICAgICAgICAgICAgICAgICAgICAg ICAgICAgICAgICAgICAgICAgICAgICAgICAgICAgICAgICAgICAgICAgICAgICAgICAgICAgICAgICAg ICAgICAgICAgICAgICAgDQogICAgICAgICAgICAgICAgICAgICAgICAgICAgICAgICAgICAgICAgICAg ICAgICAgICAgICAgICAgICAgICAgICAgICAgICAgIC AgICAgICAgICAgICAgICAgICAgICAgICAgDQogICAgICAgICAgICAgICAgICAgICAgICAgICAgICAgIC AgICAgICAgICAgICAgICAgICAgICAgICAgICAgICAgICAgICAgICAgICAgICAgICAgICAgICAgICAgIC AgICAgICAgDQogICAgICAgICAgICAgICAgICAgICAg ICAgICAgICAgICAgICAgICAgICAgICAgICAgICAgICAgICAgICAgICAgICAgICAgICAgICAgICAgICAg ICAgICAgICAgICAgICAgICAgDQogICAgICAgICAgICAgICAgICAgICAgICAgICAgICAgICAgICAgICAg ICAgICAgICAgICAgICAgICAgICAgICAgICAgICAgIC AgICAgICAgICAgICAgICAgICAgICAgICAgICAgDQogICAgICAgICAgICAgICAgICAgICAgICAgICAgIC AgICAgICAgICAgICAgICAgICAgICAgICAgICAgICAgICAgICAgICAgICAgICAgICAgICAgICAgICAgIC WyEBArLAMxUAJvTZe9K8uiFBJiATIpVG7wNHb7Vq1+ AJuFLzNeMQO5iaGqoL9JAQ0sw9NoSTvbYZZyc6KhTJo6UT6NFYEeALwbRY4XVJtnfa7ZNHLvCEQtuRVW g4mvWqHrSWL5RNRpEgbjLW5EOATqT4ltqpJcWVLsPJVFARuvPZTMKHvsHKYJTB6KOxXvU8QquF61KSAV Cj4+RFiptiGxKibJWfWrNXXvw7BuSHg4BB5YVYLzRI sxRN7TJFZnuU4hVYucBA6CQyE2QPTrTWCGBvGfF78gtJJwVDm8A1UoEkFlBUXaLxrhIISjWAceSaDmWW MgWyBdDQogID4+ID4+QMoxWU4HAOubfzKuDIAaKm2UJNMwAAG9SOYhcLUqCXXoGAWFVJfjTA5DuROjPN F2qN3rFDhgWZLmHVAdO1hQLzGtyUxiOK31iZtckkUu bCBdDQo+Oh6UIK3qs1LqUHv2reCnIEveTDMiIOmfWNLaTRKvVCFgFQC4MRR9KEBGUrDhUOIwCSNqRHdc SDDdTBRont4YQMWtEMX7CGF7KMFyODYcZNVfPLwnUDOcPOksWxKuEJJmKGMtRF6AMrJsIZAyUXLvVLBl GDPyFNJqfj8PYCHaFRQuTzg5ZlGlAIZnDAYyVHxwPH YpIGU3VVuoLHLkVKZcMR6HSyKsFOObUAO7GVbjLXMoGSJzhh0OAFBzSYMuUdV4MdEcBSOgZNCoJFywVQ GhYSR6VWF0VSSqOVHsHM4JVwOcIXZxLPz7BbZrMLOkUHIllj1XHZZqKRWkNQS0ZOKfZALkOPDhDRfoDD WdVSI8FZf8TAAfLCUxKJ1JXpGvMDXtHRtuJqBoOCTm FEYmzk2QXFIsXKTuCCVhZPWpKBSnMMBhRXaqYUMpIAGyGiGsEANoZGEfQF7BAxHkZOLdBJM2NeLhTETs NWVldf0KTYKcPEWzHTL9PeKrMVErSXExRFkaIQRtCGM3QXmwQQIdLLShPV9CCgCaRWDdOSS4PDDtAVCn YYMfha4JJRQaEJIzDgE8IEYySGOaUOJkDGzgCTIaEW M8EUemSTUnYEKwBH7JMgYyKSNyAZcfUgJuMQFrLDBrel9ZHKQhNWSeWtPiJWUcZJUaUXBcHRdzXQIgZN E6HHkhHZGxAPOfZO0DEmRuPVJsCiW3TuebUOQhVSZixd2WMSNfWNNwLflsYTEzXDOsEPFzXEkwJHOyCF ChLVZmDFQvMMWjGS7WIuJcGWWgUsM7DBLiTGYkMWBs he1KJKQzBLGvNsZ1OVJkMOHgOJWjMEmkFLFkXWS5BBTrMCNmNXIoZN0XLyNnNZAoQIZ1QruiQSFkTILm np5NPRIsMEG1MiI0CfDvLTEqCDPwJPebSCBlSDY1TjFpHKNoMNDjOO5KOpShCLLpYUM6YIZpFEOtZOMk ou4HDZUrOIX7ASE7MDJwHBUsEWUvZKgfYLUeYGQ7NZ KsCOPuRMTdCR3SVnUsJOLxSqG5TNczWJKmPBHpdr9OPVVkWSO1UZytSuWmQTJfIIFrAYhpUHNdIHU2EQ F9ERDqZBUoDH5HKlRhTBWiDmp6OalhMORdNQZfoe8ZACUtYIM6ZNX4OsTkVRNmWSApDWckUEPxRUcqWq XuRJIfJRAiXY0JNlLnLFzdBZZTVdg6VUenI1j1YJX5 Nl8MB3Pws1JiIHRgZHKLOPbpDQ9ugzOlRDSvGg3SG1gOZwv8VvLpKNNfYSWoIuVwTnw8UeF4SDsyQhGy DvCjZjE6LB4kXQk5XAK8AaA6UBXsUUXhPxX9MBD2IFIjUjNoKRQ4IzmlBiEfAK0UTp2EDiO5WUT5aUJh Ez3ZJoG0QGmHAaSbKO3ODLd= ID Date Data Source [id number] 10/20/2020 01:53:17 AM EDT [facility] Name Value Range Interpretation Code Description Data Susan rce(s) Supporting Document(s) MAGNESIUM 2.1 mg/dL (1.7-2.4) [facility] ID Date Data Source [id number] 10/20/2020 01:29:05 AM EDT [facility] Name Value Range Interpretation Code Description Data Susan rce(s) Supporting Document(s) PT 12.1 s (9.2-11.9) H [facility] INR 1.16 [facility] SUGGESTED THERAPEUTIC RANGES USING INR F ORSTABILIZED ANTICOAGULATED PATIENTS:STANDARD DOSE THERAPY INR 2.0-3.0 DVT, PE, PREVENT DVT OR EMBOLISMHIGH DOSE THERAPY INR 2.5-3.5 PREVENT EMBOLISM FROM MECHANICAL HEART VALVE ID Date Data Source [id number] 10/19/2020 04:14:40 PM EDT [address] [id number] Name: TRACE BEALDOB: 1940Sex: MOrdering Provider: JEOVAYN Singh Prov: JEOVANY FLETCHERRefjodi Provider: Procedure Performed: / XR CHEST PORTABLEExam Date: 10/19/2020 15:47MRN: [id number] Number: [id number] Class: InpatientAccount #: [id number] for Exam: Post TAVR procedureTechnique: AP portable view obtained.Comparison: NoneFindings: Prosthetic aortic valve project over the cardiac silhouette.Port-A-Cath right chest wall extending to the right atrium.No pneumothorax, pleural effusion, he art failure, or airspace consolidation.Diffuse osteopenia.IMPRESSION: Status post TAVR.Report electronically signed by: MARGARET TERRELL On 10/19/2020 4:14 PMWorkstation ID: [id number] Name Value Range Interpretation Code Description Data Susan rce(s) Supporting Document(s) ID Date Data Source [id number] 10/19/2020 03:57:12 PM EDT [facility]FORMATIONPatient MRN Name Date of Age Gend*PT [id number] Trace Beal 1940 80 years M IPPT Location Admission Date/Time Visit ID Attending [id number] 10/19/20 0736 --- Jeovany Fletcher MD([id number]) EPI ID CSN Admitting Provider [id number] Jeovany Fletcher MD([id number])TRANSCATHETER AORTIC VALVE REPLACEMENTCardiovascular and Thoracic Surgery Operative ReportDate of Procedure: 10/19/2020 Patient's PCP: CHARLENE MASCORROatient Name: Trace Beal 80 years maleDate of :1940MRN: [id number]: [id number]: [facility] Note Date and Time: 10/19/2020 3:54 PMDate of Admission: 10/19/2020 7:36 AMPreoperative diagnoses:1. Aortic sten osis, severe.Postoperative diagnoses:1. Aortic stenosis, severe.Procedure:1. Percutaneous access bilateral common femoral artery with 6 Hungarian sheath.2. Perclose placement 2 right common femoral artery.3. Placement of right common femoral artery 14 Hungarian E sheath.4. Aortic root angiogram.5. Aortic valve balloon valvuloplasty with Elia mm balloon.6. Placement of 26 mm María 3 aortic valve.Flooring Mechanic:HANNAH Mcknightardiac Surgeon:Jeffy Boyd MDAnesthesia:General AnesthesiaAnesthesia Provider(s):Anesthesiologist: García Hale, DOCRNA: Fermin Ballesteros, CRNAPerfusionist: Daniel Martinez CCPEstimated Blood Loss:100 mL.Implants:Implants Implant Valve,Thv,Sapien3,Ultra,26mm - [id number] - Implanted Valve Aortic Inventory item: VALVE,THV,SAPIEN3,ULTRA,26MM Model/Cat number: [id number] Serial number: [id number] Enterprise Security Architect: [employer] Lot number: 07/12/2022 As of 10/19/2020 Status: ImplantedFindings:Post deployment valve well seated with no PLV.Fluoroscopy Time / Contrast Volume:Please see scanned User Interface Developer Report.Description of Procedure:After informed consent was obtained and the surgical site was confirmed, thepatient was brought into the operating room and placed supine on the operatingtable. The patient was then given preoperative antibiotics. A temporary pacingwire was then placed through the Right IJ venous sheath and floated into theright ventricle. The patient was prepped with surgical prep and sterile drapeswere applied.Both common Femoral Arteries were accessed and 6 Hungarian sheaths placed. Theright sheath was then removed over a guidewire, and tw o separate Perclosedevices were then placed. An 8 Hungarian sheath was then placed. The patient washeparinized with 100 units/kg of heparin.Capture was confirmed with the pacemaker. A pigtail catheter was placed throughthe left arterial sheath. It was placed up into the non coronary sinus. Theaortic root arteriogram was obtained. The deployment angle for the imagingsystem was confirmed.A Lunderquist stiff wire was placed through the right arterial sheath. The 8French sheath was removed and a 14 Hungarian E sheath was placed over the stiffwire.Then JR4 catheter was then placed from the right side. A straight wire was thenused to cross the valve. JR4 was then advanced into the ventricle and Safariwire was then advanced to the apex.A Elia balloon was placed across the aortic valve. The heart was then paced at180 bpm. An aortic valvuloplasty was performed.The balloon was removed. A timeout was performed confirming the appropriatevalve and the orientation of the Valve in the delivery device. The deliverydevice was then placed over the Super Stiff wire. Once the delivery device wasin the descending aorta the valve was positioned over the balloon. The valve anddelivery device were then advanced around the aortic arch into position.The heart was paced at 180 bpm. The valve was fully deployed. The balloon wasinflated for 4 seconds. Once the ballon was deflated, the delivery system wasremoved.Transesophageal echocardiogram showed good position of the valve. An aortogramshowed no aortic regurgitation and good flow into the coronaries.The delivery system was completely removed from the patient. The 2 Perclose weredeployed with good hemostasis. The patient was given protamine to reverse theheparin.Sheaths and catheters were then removed from the right groin and femoral arteryclosed with one Starclose.All sponge and needle counts were correct. The patient tolerated the procedurewell and was transferred to PACU in stable condition.Jeffy Boyd MD [facility] FACSCardiovascular Thoracic Surgery10/19/2020, 3:54 PM Name Value Range Interpretation Code Description Data Susan rce(s) Supporting Document(s) ID Date Data Source [id number] 10/19/2020 06:43:33 PM EDT [facility] Name Value Range Interpretation Code Description Data [facility] Supporting Document(s) SODIUM 134 mmol/L (136-145) L [facility] POTASSIUM 3.9 mmol/L (3.6-5.2) [facility] CHLORIDE 100 mmol/L (100-108) [facility] CO2 24 mmol/L (22-31) [facility] ANION GAP 10 mmol/L (7-16) [facility] UREA NITROGEN 12 mg/dL (7-24) [facility] CREATININE 0.84 mg/dL (0.80-1.30) [facility] BUN/CREAT RATIO 14.3 RATIO (10.0-20.0) [facility] GLUCOSE 128 mg/dL (70-99) H [facility] CALCIUM 7.9 mg/dL (8.4-10.2) L [facility] GFR >60 ml/min/1.73m2 (>59) [facility] GFR ( AMER) >60 ml/min/1.73m2 (>59) [facility] GFR INTERPRETATION [facility] --NORMAL KIDNEY FUNCTION OR MILD DISEASE - GFR >OR= 60CHRONIC KIDNEY DISEASE - GFR 15 - 59RENAL FAILURE - GFR <15 Est. GFR calculation based on the MDRDstudy equation, which assumes a steadystate for creatinine. Est. GFR should notbe used for medication dosing. ID Date Data Source [id number] 10/19/2020 06:43:33 PM EDT [facility] Name Value Range Interpretation Code Description Data Susan rce(s) Supporting Document(s) MAGNESIUM 1.9 mg/dL (1.7-2.4) [facility] ID Date Data Source [id number] 10/19/2020 06:39:17 PM EDT [facility] Name Value Range Interpretation Code Description Data Susan rce(s) Supporting Document(s) WBC 14.2 10*3/uL (4.1-11.0) H [facility] RBC 4.13 10*6/uL (4.60-6.10) L [facility] HGB 13.7 g/dL (13.5-18.0) [facility] HCT 39.3 % (41.0-53.0) L [facility] MCV 95.2 fL (80.0-95.0) H [facility] MCH 33.1 pg (27.0-32.0) H [facility] MCHC 34.8 g/dL (32.0-36.0) [facility] RDW 12.7 % (10.5-14.5) [facility] PLT 55 10*3/uL (150-450) L [facility] MPV 9.6 fL (7.1-10.7) [facility] ID Date Data Source [id number] 10/19/2020 06:30:50 PM EDT [facility] Name Value Range Interpretation Code Description Data Susan rce(s) Supporting Document(s) PT 11.5 s (9.2-11.9) [facility] INR 1.10 [facility] SUGGESTED THERAPEUTIC RANGES USING INR F ORSTABILIZED ANTICOAGULATED PATIENTS:STANDARD DOSE THERAPY INR 2.0-3.0 DVT, PE, PREVENT DVT OR EMBOLISMHIGH DOSE THERAPY INR 2.5-3.5 PREVENT EMBOLISM FROM MECHANICAL HEART VALVE ID Date Data Source [id number] 10/19/2020 03:33:20 PM EDT [facility] Name Value Range Interpretation Code Description Data Susan rce(s) Supporting Document(s) EKG [facility] [id number] jb2 [file] bureau chief/9qBtrf+[id number]+X+[id number]/2CsnQX/8WcyC14n+3OvZQ0b8J+eNg1cDh [file] ID Date Data Source [id number] 10/19/2020 03:10:48 PM EDT [facility] Name Value Range Interpretation Code Description Data Susan rce(s) Supporting Document(s) &PDF [facility] [id number]FFwUIFE7m oRX [file] [id number] ID Date Data Source [id number] 10/19/2020 03:24:03 PM EDT [facility] NT INFORMATIONPatient MRN Name Date of Age Gend*PT [id number] Trace Beal 1940 80 years M IPPT Location Admission Date/Time Visit ID Attending [id number] 10/19/20 0736 --- Jeovany Fletcher MD([id number]) EPI ID CSN Admitting Provider [id number] Jeovany Fletcher MD([id number])TAVR (Transcatheter Aortic Valve Replacement)Patient Name: Trace BealMedical Record No: [id number] of : 1940 Age 80 yearsPrimary Physician: CHERYL MEYER MD PCP Gejk of Surgery: 10/19/2020Interventional Tree Wrapper: Laly Mcknight Valve Team: Dr. Boyd and Dr. Diony PackProcedure: Transcatheter aortic valve replacement with a 26 mm María 3 ultraPre-procedure Diagnosis: Severe symptomatic aortic stenosisPost-procedure Diagnosis: Severe symptomatic aortic stenosisSymptoms/Indication: 80-year-old man with severe symptomatic aortic stenosis andmean gradient of 51 who has minimal coronary artery disease and normal systolicfunction and was found to have pancreatic cancer. In anticipation of surgery hewas referred for TAVR.Physical exam: BP 140/81 (BP Location: Right upper arm) | Pulse 96 | Temp 98 F (Oral) | Resp 18 | Ht 1.753 m (5' 9") | Wt 60.2 kg (132 lb 11.5 oz) |SpO2 97% | BMI 19.60 kg/m Alert and oriented. Heart sounds are normal S1 and absent S2 with 2 out of 6late peak systolic ejection murmur.EKG: Sinus rhythm with normal conduction and PVCsCreatinine: 0.84Procedure descriptionAccess: Right femoralValve type: 26 mm María 3 ultraRight and left femoral arterial access was obtained. On the right we deployed 2Perclose devices for preclosing. We upsized to a 14 Hungarian Thorpe sheath overa Lunderquist wire. From the left we advanced a pigtail to the right coronarycusp and aortic root angiogram was obtained. The valve was crossed and a safariwire was placed in the ventricle. Balloon valvuloplasty was done using a 22 mmvalvuloplasty balloon with rapid pacing at 182 bpm. We then advanced the valveover the safari wire and it was deployed with rapid pacing at 182 bpm. Thefinal ESA showed trace AI paravalvular. There was good position of the valve.The left ventricular pressure was 124/2. Aortic pressure was 118/41. Thesheath was then removed after removal of the valve delivery device and thePerclose devices were tied with good hemostasis. We deployed a Star close onthe left.Estimated Blood Loss: MinimalComplications: NoneSedation: General anesthesiaSpecimens: NoneContrast used: See scanned cath report document under the media tab.Implants: 26 mm María 3 ultraConclusion1. Severe symptomatic aortic stenosis post successful TAVR with a 26 mm María 3ultra.2. No significant coronary artery disease.3. Minimal gradient at the end of the procedure and low left side fillingpressure.4. Pancreatic cancer planning ipp. Plan1. Admit to telemetry2. Telemetry class I3. Access: Closed4. Pacemaker: Backup5. Anticoagulation: PlavixSignature: Jeovany Fletcher, MDDate: 10/19/2020Time: 3:15 PMCC: Dr. Singer document or parts of this document, were dictated using gantto. A reasonable attempt at proofreading has been made to minimize errors.Please call with any questions or corrections. Name Value Range Interpretation Code Description Data Susan rce(s) Supporting Document(s) ID Date Data Source [id number] 10/19/2020 02:52:29 PM EDT [facility] Name Value Range Interpretation Code Description Data Susan rce(s) Supporting Document(s) POC ACT 246 s (80-140) H [facility] PERFORMED BY [facility] CLINICAL STAFF ID Date Data Source [id number] 10/19/2020 02:49:57 PM EDT [facility] Name Value Range Interpretation Code Description Data Susan rce(s) Supporting Document(s) POC SOURCE [facility] CP BYPASS [facility] POC PH 7.49 pH (7.35-7.45) H [facility] POC PCO2 36.5 MMHG (32.0-48.0) [facility] POC PO2 553 MMHG (83-108) H [facility] POC SAT O2 100 % (95-99) H [facility] POC BASE EXCESS 5 MMOL/L (0-3) H [facility] POC HCO3 28.0 MMOL/L (21.0-29.0) [facility] POC TOTAL CO2 29 MMOL/L (23.0-32.0) [facility] POC HCT 38 % (41.0-53.0) L [facility] POC SODIUM 133 MMOL/L (136-145) L [facility] POC POTASSIUM 3.8 MMOL/L (3.6-5.2) [facility] POC IONIZED CALCIUM 4.3 MG/DL (4.6-5.3) L [facility] POC GLU 130 MG/DL (70-99) H [facility] ID Date Data Source [id number] 10/19/2020 02:17:21 PM EDT [facility] NT INFORMATIONPatient MRN Name Date of Age Gend*PT [id number] Trace Beal W 1940 80 years M IPPT Location Admission Date/Time Visit ID Attending Provider --- --- --- --- EPI ID CSN Admitting Provider [id number] ---Introducer AdditionsPatient location during procedure: ORIndications for introducer addition: Temporary pacingStaffingPerformed by: Fermin Ballesteros, CRNAApproved by: García Hale, DOCompleted: patient identified, risks and benefits discussed, surgical consentobtained, anesthesia consent obtained, monitors and equipment checked, pre-opevaluation completed, timeout performed, patient was prepped and draped in usualsterile fashion,Introducer AdditionsIntroducer addition: Transvenous PacerInsertion depth (cm): 32Introducer placed: At time of i ntroducer additionPacing wires procedure: Pacing wire was introduced, Pacing box set at VOO andWire was advanced using balloon flow directed method until ventricular capturewas notedType of pacing wires: VentricularPacing box rate: 100Pacing threshold obtained at: 1AssessmentSecurement method: securement devicePlacement verification: ventricular captureAssessment: tolerated well, no changes to vital signs and catheter flushed [id number] NS Name Value Range Interpretation Code Description Data Susan rce(s) Supporting Document(s) ID Date Data Source [id number] 10/19/2020 02:16:55 PM EDT [facility] NT INFORMATIONPatient MRN Name Date of Age Gend*PT [id number] Trace Beal W 1940 80 years M IPPT Location Admission Date/Time Visit ID Attending Provider --- --- --- --- EPI ID CSN Admitting Provider [id number] ---Central Line InsertionPatient location during procedure: ORIndications for central line: hemodynamic monitoring, temporary pacing, vascularaccess and vasoactive infusionsStaffingPerformed by: Fermin Ballesteros CRNAApproved by: AMNA Delcidompleted: patient identified, risks and benefits discussed, surgical consentobtained, anesthesia consent obtained, monitors and equipment checked, pre-opevaluation completed, timeout performed, patient was prepped and draped in usualsterile fashion,Central LineCatheter type: IntroducerCVC type: non-araceli nelledNeedle gauge: 18 GCatheter size: 7.5 FrSite prep: chlorhexidine gluconateLaterality: rightLocation: internal jugularTechnique: CVC inserted using ultrasound guidanceProcedure: Catheter inserted and manometry was performed, Guidewire passedthrough the catheter and No arrythmiasAssessmentSecurement method: SuturedPlacement verification: Ultrasound (wire seen in ij travelling down towardheart)Assessment: tolerated well, no changes to vital signs and catheter flushed [id number] NS Name Value Range Interpretation Code Description Data Susan rce(s) Supporting Document(s) ID Date Data Source [id number] 10/19/2020 02:12:46 PM [facility] Name Date of Age Gend*PT [id number] Trace Beal W 1940 80 years M IPPT Location Admission Date/Time Visit ID Attending Provider --- --- --- --- EPI ID CSN Admitting Provider [id number] ---Arterial Line PlacementPatient location during procedure: ORIndications for arterial line: multiple ABGs and hemodynamic monitoringStaffingPerformed by: Fermin Ballesteros CRNAApproved by: AMNA Delcidompmegd: patient identified, risks and benefits discussed, surgical consentobtained, anesthesia consent obtained, monitors and equipment checked, pre-opevaluation completed, timeout performed, patient was prepped and draped in usualsterile fashion,Arterial Line InsertionSite prep: chlorhexidineAnesthesia: local infiltrationLaterality: left Location: radial arteryNeedle gauge: 20 GTechnique: ultrasound guidedNumber of attempts: 2AssessmentSutured: noDressing: dressing appliedPatient tolerance: tolerated well Name Value Range Interpretation Code Description Data Susan rce(s) Supporting Document(s) ID Date Data Source [id number] 10/19/2020 02:12:20 PM EDT [facility]FORMATIONPatient [facility] Name Date of Age Gend*PT [id number] Trace Beal 1940 80 years M IPPT Location Admission Date/Time Visit ID Attending Provider --- --- --- --- EPI ID CSN Admitting Provider [id number] ---AirwayPatient location during procedure: ORUrgency: electiveDifficult airway: noAdvanced airway equipment used: noStaffingPerformed by: García Hale, DOAnesthesiologist: García Hale, DOIndications and Patient ConditionIndications for airway management: anesthesiaPreoxygenated: yesPatient position: sniffingIn-line stabilization: noMask ventilation: 0 - not attemptedFinal Airway/ApproachesFinal airway type: ETTNumber of attempts at final approach: 1Number of other approaches attempted: 0Final Airway DetailsFinal ETT airway: ETT - singleCuffed: yesTechnique used for successful ETT placement: direct laryngoscopyCricoid pressure: noRSI: yesInsertion site: oralBlade type/size: MAC 3.5ETT size: 7.5 mmMeasured from: lipsETT to lips: 21 cmPlacement verified by: + [id number] view: grade IIa - partial view of glottis Name Value Range Interpretation Code Description Data Susan rce(s) Supporting Document(s) ID Date Data Source [id number] 10/19/2020 02:13:05 PM EDT [facility] Name Value Range Interpretation Code Description Data Susan rce(s) Supporting Document(s) POC SOURCE [facility] CP BYPASS [facility] POC PH 7.47 pH (7.35-7.45) H [facility] POC PCO2 38.9 MMHG (32.0-48.0) [facility] POC PO2 448 MMHG (83-108) H [facility] POC SAT O2 100 % (95-99) H [facility] POC BASE EXCESS 4 MMOL/L (0-3) H [facility] POC HCO3 28.1 MMOL/L (21.0-29.0) [facility] POC TOTAL CO2 29 MMOL/L (23.0-32.0) [facility] STAFF POC HCT 39 % (41.0-53.0) L [facility] POC SODIUM 134 MMOL/L (136-145) L [facility] POC POTASSIUM 3.8 MMOL/L (3.6-5.2) [facility] POC IONIZED CALCIUM 4.4 MG/DL (4.6-5.3) L [facility] POC GLU 130 MG/DL (70-99) H [facility] ID Date Data Source [id number] 10/19/2020 02:13:00 PM EDT [facility] Name Value Range Interpretation Code Description Data Susan rce(s) Supporting Document(s) POC ACT 125 s (80-140) [facility] CLINICAL STA[facility] ID Date Data Source [id number] 10/19/2020 02:03:51 PM EDT [facility]FORMATIONPatient [facility] Name Date of Age Gend*PT [id number] Trace Beal W 1940 80 years M IPPT Location Admission Date/Time Visit ID Attending ProviderCV10/19/20 0736 --- Jeovany Fletcher MD([id number]) EPI ID CSN Admitting Provider [id number] Jeovany Fletcher MD([id number]) Attestation signed by Jeovany Fletcher MD at 10/19/2020 2:03 PMSignature: AMANDA Mcknightate: October 19, 2020Time: 2:03 PM --Cardiology History and PhysicalName: Trace Beal Gender: maleDate of : 1940 Age: 80 yearsDate/Time of Admit: 10/19/2020 7:36 AM Code Status: Full CodePrimary Care ProviderReferring Physician: Seb MASCORRO MDHPI: This is a pleasant 80 year old gentleman who has been experiencing fatigue,dyspnea and dizziness. He follows with his coil cleaner, Dr. Coronado, and had anechocardiogram that revealed severe aortic stenosis. He underwent a cardiaccatheterization in June that confirmed severe aortic stenosis with a MG of 51mmHg and minimal nonobstructive coronary artery disease. He was referred forTAVR and underwent all testing including a CTA of the chest, abdomen and pelvis.This revealed an incidental finding of a 2 cm mass in the pancreas. Plans forTAVR were put on hold. The patient was sent for workup and was found to havepancreatic cancer.The patient has been undergoing radiation treatment and was referred to asurgeon. The surgeon is planning a Whipple procedure as he feels that thepatient has good prognosis. The patient was referred back to us for TAVR.HistoryPast Medical History:Diagnosis Date Abnormal Doppler ultrasound of carotid artery 09/02/2019 [facility]. Bilateral less then 50% stenosis Arthritis Cancer H/O echocardiogram 03/22/2019 LV EF 60%, severe (mean gradient 48mmHg, LORA 0.8cm2) Prostate cancer UrolithiasisPast Surgical History:Procedure Laterality Date CARDIAC CATHETERIZATION N/A 06/18/2020 Procedure: Right heart cath; Surgeon: Jeovany Fletcher MD; Laterality: N/A; CARDIAC CATHETERIZATION N/A 06/18/2020 Procedure: Left heart cath; Surgeon: Jeovany Fletcher MD; Laterality: N/A; CARDIAC CATHETERIZATION N/A 06/18/2020 Procedure: Coronary angiography; Surgeon: Jeovany Fletcher MD; Laterality:N/A; CARDIAC CATHETERIZATION N/A 06/18/2020 Procedure: Left ventriculography; Romero rgeon: Jeovany Fletcher MD; Laterality:N/A; colonscopy HERNIA REPAIR PANENDOSCOPY N/A 08/12/2020 Procedure: ULTRASOUND, UPPER GASTROINTESTINAL (GI) TRACT, ENDOSCOPIC withbiopsy and FNA; Surgeon: Jose Nweton DO; Laterality: N/A; PROSTATECTOMY 2000Social HistorySocioeconomic History Marital status: Spouse name: Not on file Number of children: 4 Years of education: Not on file Highest education level: Not on fileOccupational History 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: 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 Use Smoking status: Former Smoker Packs/day: 1.00 Years: 25.00 Pack years: 25.00 Types: Cigarettes Quit date: 1969 Years since quittin.6 Smokeless tobacco: Never UsedVaping Use Vaping Use: Never usedSubstance and Sexual Activity Alcohol use: Not Currently Alcohol/week: 2.0 standard drinks Types: 2 Cans of beer per week Comment: summer time Drug use: Never Sexual activity: Not on fileOther Topics Concern Not on fileSocial History Narrative Not on fileFamily HistoryProblem Relation Age of Onset Diabetes Mother Alcohol abuse FatherMedications & AllergiesAllergies: No Known Drug AllergiesMedications:Medications Prior to AdmissionMedication Sig Cholecalciferol (VITAMIN D) 50 MCG (2000 UT) tablet Take 2,000 Units by mouthdaily DAILY MARCELLE (THERAGRAN) per tablet Take 1 tablet by mouth daily Flaxseed, Linseed, (FLAX PO) Take by mouth Iodine, Kelp, (KELP PO) Take by mouth aspirin EC 81 MG EC tablet Take 1 tablet (81 mg total) by mouth daily Scheduled Meds: ceFAZolin (ANCEF) IV 2 g Intravenous Stockroom Selector normal saline flush 3 mL Intravenous Q8H ALYSSA normal saline flush 3 mL Intravenous Q8H SCHContinuous Infusions:PRN Meds:.Review of Systems General Denies dizziness or lightheadedness. HEENT Denies any loss or change of vision. Denies tinnitus. Respiratory Denies PND, orthopnea, hemoptysis, or shortness of breath. Cardiac Denies chest pain or pressure, denies palpitations GI Denies melena, hematochezia, nausea, or vomiting. MS Denies any lower extremity edema. Neuro Denies speech, motor, or sensory impairment. Psych Denies depression or anxiety. Endo Denies polyuria or polydipsia, denies temperature intolerance. Derm Denies diaphoresis, non-healing skin woundsPhysicalTemp (24hrs), Av F, Min:98 F, Max:98 FBlood Pressure: BP: 140/81 Pulse: Heart Rate: 96Temperature: Temp: 98 F Respirations: Resp: 18Admission Weight: Weight: 60.2 kg (132 lb 11.5 oz) O2 Saturation: SpO2: 97 %Today's Weight: Weight: 60.2 kg (132 lb 11.5 oz) BMI: Body mass index is 19.6kg/m .No intake or output data in the 24 hours ending 10/19/20 0935Physical Exam General Well developed, no acute distress Neck No JVD Lungs Clear to auscultation, no crackles, rhonchi, or wheezes. No cough onexam. Heart Barely audible S1, S2, no clicks or gallops Abdomen Soft, non-tender, non-distended, + bowel sounds Neuro AAOx3, no focal motor or sensory deficit Derm No rashes, or ulcers. Vascular Lower extremities warm, no edema noted.Assessment and PlanPrincipal Problem: Nonrheumatic aortic valve stenosisActive Problems: Pancreatic cancer1) Cardiac: Known severe aortic stenosis with plans for TAVR today.Signature: Ashley Warren NPDate: October 19, 2020Time: 9:35 AM Name Value Range Interpretation Code Description Data Susan rce(s) Supporting Document(s) ID Date Data Source [id number] 10/20/2020 10:34:57 AM EDT [facility] SPEC EXP DATE 10/22/2020ATI ENT ABO/Rh O POSITIVEANTIBODY SCREEN NEGATIVETESTING SITE PERFORMED AT [address] [place] [address] [id number] NUMBER [id number] COMPONENT TYPE LEUKOPOOR RED CELLS (PT B)UNIT DIVISION 00STATUS OF UNIT REL FROM ALLOCTRANSFUSION STATUS OK TO TRANSFUSECROSSMATCH RESULT COMPATIBLEUNIT NUMBER [id number] COMPONENT TYPE LEUKOPOOR RED CELLS (PT B)UNIT DIVISION 00STATUS OF UNIT REL FROM ALLOCTRANSFUSION STATUS OK TO TRANSFUSECROSSMATCH RESULT COMPATIBLE Name Value Range Interpretation Code Description Data Susan rce(s) Supporting Document(s) TYPE AND SCREEN [facility] ID Date Data Source [id number] 10/19/2020 10:57:22 AM EDT [facility] Name Value Range Interpretation Code Description Data Susan rce(s) Supporting Document(s) HEMOGLOBIN A1C @ 6.1 % (4.0-6.0) H [facility] man[facility] SERVIN Performed using Siemens Sharon immunoassa y.Care must be taken when interpreting JdH5ezxybcae in patients with a hemoglobin variantor decreased erythrocyte lifespan. Values 5.7 - 6.4% suggest prediabetes.Values >=6.5% are diagnostic for diabetes.REFERENCE: DIABETES CARE 2018: 41(S13-S27).PERFORMED AT [address] [place] [address] EST AVERAGE GLUCOSE 128 mg/dL [facility] ID Date Data Source [id number] 10/19/2020 10:53:36 AM EDT [facility] Name Value Range Interpretation Code Description Data Susan rce(s) Supporting Document(s) PT 10.9 s (9.2-11.9) [facility] INR 1.04 [facility] SUGGESTED THERAPEUTIC RANGES USING INR F ORSTABILIZED ANTICOAGULATED PATIENTS:STANDARD DOSE THERAPY INR 2.0-3.0 DVT, PE, PREVENT DVT OR EMBOLISMHIGH DOSE THERAPY INR 2.5-3.5 PREVENT EMBOLISM FROM MECHANICAL HEART VALVE ID Date Data Source [id number] 10/19/2020 10:43:15 AM EDT [facility] [place] [facility] [place] Name Value Range Interpretation Code Description Data Susan rce(s) Supporting Document(s) ROOM TEMP AB SCREEN [facility] [place] ROOM TEMP AB SCREEN NEGATIVE ID Date Data Source [id number] 10/19/2020 10:40:34 AM EDT [facility] [place] [facility] [place] Name Value Range Interpretation Code Description Data Susan rce(s) Supporting Document(s) NT PRO BNP 1082 pg/mL (0-450) H [facility] [place] [facility] [place] ID Date Data Source [id number] 10/19/2020 10:40:29 AM EDT [facility] [place] [facility] Name Value Range Interpretation Code Description Data Susan rce(s) Supporting Document(s) MAGNESIUM 1.9 mg/dL (1.7-2.4) [facility] [place] [facility] ID Date Data Source [id number] 10/19/2020 10:40:29 AM EDT [facility] [place] [facility] Name Value Range Interpretation Code Description Data Susan rce(s) Supporting Document(s) SODIUM 137 mmol/L (136-145) [facility] [place] [facility] POTASSIUM 3.9 mmol/L (3.6-5.2) [facility] [place] [facility] CHLORIDE 100 mmol/L (100-108) [facility] [place] [facility] CO2 29 mmol/L (22-31) [facility] [place] [facility] ANION GAP 8 mmol/L (7-16) [facility] [place] [facility] UREA NITROGEN 12 mg/dL (7-24) [facility] [place] [facility] CREATININE 0.84 mg/dL (0.80-1.30) [facility] [place] [facility] BUN/CREAT RATIO 14.3 RATIO (10.0-20.0) [facility] GLUCOSE 135 mg/dL (70-99) H [facility] [place] [facility] CALCIUM 8.7 mg/dL (8.4-10.2) [facility] [place] [facility] TOTAL PROTEIN 7.1 g/dL (6.4-8.2) [facility] [place] [facility] ALBUMIN 4.3 g/dL (3.2-4.5) [facility] [place] [facility] GLOBULIN 2.8 g/dL (2.7-4.3) [facility] [place] [facility] ALB/GLOB RATIO 1.5 RATIO [facility] [place] [facility] ALKALINE PHOSPHATASE 155 U/L (45-117) H [facility] BILIRUBIN,TOTAL 0.7 mg/dL (0.0-1.0) [facility] [place] [facility] [place] PLEASE NOTE:Total bilirubin results may be falselyelevated in patients taking Eltrombopag. AST (SGOT) <5 U/L (11-39) L [facility] [place] [facility] ALT (SGPT) 16 U/L (12-78) [facility] [place] [facility] GFR >60 ml/min/1.73m2 (>59) [facility] [place] [facility] GFR ([facility]) >60 ml/min/1.73m2 (>59) [facility] [place] [facility] GFR INTERPRETATION [facility] --NORMAL KIDNEY FUNCTION OR MILD DISEASE - GFR >OR= 60CHRONIC KIDNEY DISEASE - GFR 15 - 59RENAL FAILURE - GFR <15 Est. GFR calculation based on the MDRDstudy equation, which assumes a steadystate for creatinine. Est. GFR should notbe used for medication dosing. ID Date Data Source [id number] 10/19/2020 10:31:39 AM EDT [facility] [place] [facility] Name Value Range Interpretation Code Description Data Susan rce(s) Supporting Document(s) WBC 22.6 10*3/uL (4.1-11.0) H [facility] [place] [facility] RBC 4.66 10*6/uL (4.60-6.10) [facility] [place] [facility] HGB 15.1 g/dL (13.5-18.0) [facility] [place] [facility] HCT 44.7 % (41.0-53.0) [facility] [place] [facility] MCV 96.0 fL (80.0-95.0) H [facility] [place] [facility] MCH 32.4 pg (27.0-32.0) H [facility] [place] [facility] MCHC 33.7 g/dL (32.0-36.0) [facility] [place] [facility] RDW 13.1 % (10.5-14.5) [facility] [place] [facility] PLT 66 10*3/uL (150-450) L [facility] [place] [facility] MPV 10.2 fL (7.1-10.7) [facility] [place] [facility] ID Date Data Source [id number] 10/19/2020 08:48:54 AM EDT [facility] [place] [facility] [place] Name Value Range Interpretation Code Description Data Susan rce(s) Supporting Document(s) POC NOVA GLU 122 mg/dL (70-99) H [facility] [place] [facility] [place] PERFORMED BY [facility] STA[facility] ID Date Data Source [id number] 10/15/2020 10:30:00 AM EDT [facility] ([facility] Name Value Range Interpretation Code Description Data Susan rce(s) Supporting Document(s) Laboratory test finding (navigational concept) Laboratory test result [facility] ([facility] ASSAY INFORMATION: Real Time RT-PCR NOTE: The COVID-19 assay has been cleared by the U.S. Food and Drug Administration under the Emergency Use Authorization (EUA). [employer] and [employer] are designated as high complexity laboratories by the Clinical Laboratory Improvement Amendments of 1988(CLIA) and are qualified to perform this test. Not Detected ID Date Data Source [id number] 10/08/2020 08:24:00 AM EDT [facility] Name Value Range Interpretation Code Description Data Susan rce(s) Supporting Document(s) White Blood Count 9.8 10 4.0-10.0 Normal (applies to non-numeri c results) [facility] ([facility] A Pathologist review of this differentia l can help in the evaluation of a differential diagnosis. Please order a Pathologist Review (PERISM) if deemed necessary. Results are subject to change if a Pathologist Review is performed. Red Blood Count 4.82 10 4.30-6.10 Normal (applies to non-numeric results) [facility] ([facility] Hemoglobin 15.4 g/dL 13.5-17.5 Normal (applies to non-numeric resul ts) [facility] ([facility] Hematocrit 46.3 % 42.0-52.0 Normal (applies to non-numeric resul ts) [facility] ([facility] Mean Corpuscular Volume 96.1 fl 80.0-96.0 Above high normal [facility] ([facility] Mean Corpuscular Hemoglobin 32.0 pg 27.0-33.0 Norm al (applies to non-numeric results) [facility] ([facility] ) Red Cell Distribution Width 12.4 % 11.5-14.5 Norm al (applies to non-numeric results) [facility] ([facility] ) Mean Corpuscular HGB Conc 33.3 g/dL 32.0-36.5 Normal (applies to non-numeric results) [facility] ([facility] ) Platelet Count, Automated 161 10 150-450 Normal (applies to non-numeric results) [facility] ([facility] ) Lymph % 8.1 % 24.0-44.0 Below low normal [facility] ( [facility] Neutrophils % 53.2 % 36.0-66.0 Normal (applies to non-numeric re sults) [facility] ([facility] Lamar % 34.9 % 2.0-8.0 Above high normal [facility] ([facility] Eos % 1.0 % 0.0-3.0 Normal (applies to non-numeric resul ts) [facility] ([facility] Baso % 0.3 % 0.0-1.0 Normal (applies to non-numeric resul ts) [facility] ([facility] Immature Granulocyte % 2.5 % 0-3.0 Normal (applies to non-n umeric results) [facility] ([facility] Nucleated Red Blood Cell % 0.0 % 0-0 Normal (applies to n on-numeric results) [facility] ([facility] Neutrophils # 5.2 10 1.5-8.5 Normal (applies to non-numeric re sults) [facility] ([facility] Lymph # 0.8 10 1.5-5.0 Below low normal [facility] ( [facility] Eos # 0.1 10 0.0-0.5 Normal (applies to non-numeric resul ts) [facility] ([facility] Lamar # 3.4 10 0.0-0.8 Above high normal [facility] ([facility] Baso # 0.0 10 0.0-0.2 Normal (applies to non-numeric resul ts) [facility] ([facility] ID Date Data Source [id number] 10/08/2020 08:24:00 AM EDT [facility] ([facility] Name Value Range Interpretation Code Description Data Susan rce(s) Supporting Document(s) Glucose, Fasting 131 mg/dL 70-100 Above high normal [facility] ([facility] Blood Urea Nitrogen 15 mg/dL 7-18 Normal (applies to non-nume reid results) [facility] ([facility] Glomerular Filtration Rate Laboratory test result Normal (applies to non- numeric results) [facility] ([facility] ) <content>Units are mL/min/1.73 m2</content>
<content></content>
<content>Chronic Kidney Disease Staging per NKF:</content>
<content></content>
<content>Stage I & II GFR >=60 Normal to Mildly Decreased</content>
<content>Stage III GFR 30- 59 Moderately Decreased</content>
<content>Stage IV GFR 15-29 Severely Decreased</content>
<content>Stage V GFR <15 Very Little GFR Left</content>
<content>ESRD GFR <15 on GRAIN TRADER</content>
<content></content> Creatinine For GFR 0.73 mg/dL 0.70-1.30 Normal (applies to non -numeric results) [facility] ([facility] Sodium Level 139 meq/L 136-145 Normal (applies to non-numeric res ults) [facility] ([facility] Potassium Serum 4.3 meq/L 3.5-5.1 Normal (applies to non-numeric results) [facility] ([facility] Chloride Level 103 meq/L 98-107 Normal (applies to non-numeric r esults) [facility] ([facility] Anion Gap 6 meq/L 8-16 Below low normal [facility] ( [facility] Carbon Dioxide Level 30 meq/L 21-32 Normal (applies to non-num mckenzie results) [facility] ([facility] Calcium Level 9.1 mg/dL 8.8-10.2 Normal (applies to non-numeric re sults) [facility] ([facility] Ast/Sgot 10 U/L 7-37 Normal (applies to non-numeric resul ts) [facility] ([facility] Alt/SGPT 19 U/L 12-78 Normal (applies to non-numeric resul ts) [facility] ([facility] Alkaline Phosphatase 65 U/L 45-117 Normal (applies to non-num mckenzie results) [facility] ([facility] Bilirubin,Total 0.8 mg/dL 0.2-1.0 Normal (applies to non-numeric results) [facility] ([facility] Total Protein 6.9 GM/DL 6.4-8.2 Normal (applies to non-numeric re sults) [facility] ([facility] Albumin 4.4 GM/DL 3.2-5.2 Normal (applies to non-numeric resul ts) [facility] ([facility] Albumin/Globulin Ratio 1.8 Normal (applies to non-n umeric results) [facility] ([facility] ID Date Data Source [id number] 10/08/2020 08:24:00 AM EDT [facility] Name Value Range Interpretation Code Description Data Susan rce(s) Supporting Document(s) Cancer Ag 19-9 [Units/volume] in Serum or Plasma 6310.2 U/ML Above high normal [facility] ([facility] ) THE CA 19-9 ASSAY IS PERFORMED ON THE [employer] BY CHEMILUMINESCENCE AND SHOULD NOT BE COMPARED INTERCHANGEABLY WITH OTHER METHODS. IT SHOULD NOT BE USED ALONE A SCREENING TEST OR DIAGNOSIS FOR THE PRESENCE OR ABSENCE OF MALIGNANT DISEASE. PREDICTIONS OF DISEASE RECURRENCE SHOULD NOT BE BASED SOLELY ON VALUES OBTAINED FROM SERIAL PATIENT SERUM VALUES. ID Date Data Source [id number] 09/25/2020 11:14:00 AM EDT [facility] ([facility] Name Value Range Interpretation Code Description Data Susan rce(s) Supporting Document(s) Cancer Ag 19-9 [Units/volume] in Serum or Plasma 5746.2 U/ML Above high normal [facility] ([facility] ) THE CA 19-9 ASSAY IS PERFORMED ON THE [employer] BY CHEMILUMINESCENCE AND SHOULD NOT BE COMPARED INTERCHANGEABLY WITH OTHER METHODS. IT SHOULD NOT BE USED ALONE A SCREENING TEST OR DIAGNOSIS FOR THE PRESENCE OR ABSENCE OF MALIGNANT DISEASE. PREDICTIONS OF DISEASE RECURRENCE SHOULD NOT BE BASED SOLELY ON VALUES OBTAINED FROM SERIAL PATIENT SERUM VALUES. ID Date Data Source [id number] 09/18/2020 07:43:00 AM EDT [place] ([facility] Name Value Range Interpretation Code Description Data Susan rce(s) Supporting Document(s) Glucose, Fasting 120 mg/dL 70-100 Above high normal [facility] ([facility] Blood Urea Nitrogen 13 mg/dL 7-18 Normal (applies to non-nume reid results) [place] ([facility] Creatinine For GFR 0.74 mg/dL 0.70-1.30 Normal (applies to non -numeric results) [place] ([facility] Glomerular Filtration Rate Laboratory test result Normal (applies to non- numeric results) [facility] ) <content>Units are mL/min/1.73 m2</content>
<content></content>
<content>Chronic Kidney Disease Staging per NKF:</content>
<content></content>
<content>Stage I & II GFR >=60 Normal to Mildly Decreased</content>
<content>Stage III GFR 30- 59 Moderately Decreased</content>
<content>Stage IV GFR 15-29 Severely Decreased</content>
<content>Stage V GFR <15 Very Little GFR Left</content>
<content>ESRD GFR <15 on GRAIN TRADER</content>
<content></content> Potassium Serum 4.1 meq/L 3.5-5.1 Normal (applies to non-numeric results) [place] ([facility] Sodium Level 140 meq/L 136-145 Normal (applies to non-numeric res ults) [place] ([facility] Chloride Level 106 meq/L 98-107 Normal (applies to non-numeric r esults) [place] ([facility] Carbon Dioxide Level 29 meq/L 21-32 Normal (applies to non-num mckenzie results) [facility] ([facility] Anion Gap 5 meq/L 8-16 Below low normal [facility] ( [facility] Calcium Level 8.8 mg/dL 8.8-10.2 Normal (applies to non-numeric re sults) [facility] ([facility] Ast/Sgot 10 U/L 7-37 Normal (applies to non-numeric resul ts) [facility] ([facility] Alt/SGPT 20 U/L 12-78 Normal (applies to non-numeric resul ts) [facility] ([facility] Bilirubin,Total 0.7 mg/dL 0.2-1.0 Normal (applies to non-numeric results) [facility] ([facility] Alkaline Phosphatase 56 U/L 45-117 Normal (applies to non-num mckenzie results) [facility] ([facility] Total Protein 6.5 GM/DL 6.4-8.2 Normal (applies to non-numeric re sults) [facility] ([facility] Albumin/Globulin Ratio 1.7 Normal (applies to non-n umeric results) [facility] ([facility] Albumin 4.1 GM/DL 3.2-5.2 Normal (applies to non-numeric resul ts) [facility] ([facility] ID Date Data Source [id number] 09/18/2020 07:43:00 AM EDT [facility] ([facility] Name Value Range Interpretation Code Description Data Susan rce(s) Supporting Document(s) White Blood Count 8.0 10 4.0-10.0 Normal (applies to non-numeri c results) [facility] ([facility] A Pathologist review of this differentia l can help in the evaluation of a differential diagnosis. Please order a Pathologist Review (PERISM) if deemed necessary. Results are subject to change if a Pathologist Review is performed. Red Blood Count 4.52 10 4.30-6.10 Normal (applies to non-numeric results) [facility] ([facility] Hemoglobin 14.9 g/dL 13.5-17.5 Normal (applies to non-numeric resul ts) [facility] ([facility] Hematocrit 43.3 % 42.0-52.0 Normal (applies to non-numeric resul ts) [facility] ([facility] Mean Corpuscular Volume 95.8 fl 80.0-96.0 Normal ( applies to non-numeric results) [facility] ([facility] ) Mean Corpuscular Hemoglobin 33.0 pg 27.0-33.0 Norm al (applies to non-numeric results) [facility] ([facility] ) Mean Corpuscular HGB Conc 34.4 g/dL 32.0-36.5 Normal (applies to non-numeric results) [facility] ([facility] ) Red Cell Distribution Width 12.3 % 11.5-14.5 Norm al (applies to non-numeric results) [facility] ([facility] ) Platelet Count, Automated 115 10 150-450 Below low normal [facility] ([facility] Neutrophils % 47.0 % 36.0-66.0 Normal (applies to non-numeric re sults) [facility] ([facility] Lymph % 10.8 % 24.0-44.0 Below low normal [facility] ( [facility] Lamar % 37.8 % 2.0-8.0 Above high normal [facility] ([facility] Eos % 1.8 % 0.0-3.0 Normal (applies to non-numeric resul ts) [facility] ([facility] Immature Granulocyte % 2.3 % 0-3.0 Normal (applies to non-n umeric results) [facility] ([facility] Baso % 0.3 % 0.0-1.0 Normal (applies to non-numeric resul ts) [facility] ([facility] Neutrophils # 3.8 10 1.5-8.5 Normal (applies to non-numeric re sults) [facility] ([facility] Nucleated Red Blood Cell % 0.0 % 0-0 Normal (applies to n on-numeric results) [facility] ([facility] Lymph # 0.9 10 1.5-5.0 Below low normal [facility] ( [facility] Lamar # 3.0 10 0.0-0.8 Above high normal [facility] ([facility] Baso # 0.0 10 0.0-0.2 Normal (applies to non-numeric resul ts) [facility] ([facility] Eos # 0.1 10 0.0-0.5 Normal (applies to non-numeric resul ts) [facility] ([facility] ID Date Data Source [id number] 09/09/2020 11:37:00 AM EDT Thao boucher Exam Number: [id number] OF EXAMINATIO N: 09/09/2020 8:42 EDTPET/CT HEAD TO MID THIGHCOMPARED TO:No priorHISTORY: Pancreatic cancerTECHNIQUE: Following intravenous injection of 9.01 mCi of FDG, a totalbody PET scan was performed from the base of the of the skull to theupper thighs. Prior to the PET scan, transmission CT was performed.Fusion images were created from the source data. Attenuationcorrection was applied.FINDINGS:There is an area of abnormal uptake of activity in the pancreatic bodywith a mean SUV of 4.31 roughly measuring 1.6 x 1.6 cm in this patientwith known pancreatic cancer. There is a probable 0.5 cm lymph nodeposterior medial to this lesion revealing a mean SUV of 1.75. There isno definite distinct intrahepatic mass. Adrenal glands appearprominent but hypodense without any abnormal uptake of activity. Thereis no evidence for any abnormal solid organ uptake or abnormal osseousuptakeIMPRESSION:Pancreatic lesion with abnormal uptake of activity in this patientwith known pancreatic cancer with a probable 0.5 cm lymph node whichreveals a low SUV of 1.75. There is a partially calcified 0.5 cmgranuloma in the left lower lobe. If the patient has not had adedicated triple phase CT scan of the liver one would be recommended.Severe calcified coronary arterial plaque formation.Thank you for allowing us to participate in the care of your patient.I would be glad to review the images with you and answer any questionsthat you may have.Electronically signed in [id number] by: Arabella Ugalde M.D. 111:25 EDT Reported By: Stacey UGALDE M.D. Signed By: Yael UGALDE M.D. Name Value Range Interpretation Code Description Data Susan rce(s) Supporting Document(s) ID Date Data Source [id number] 09/04/2020 09:02:00 AM EDT [facility] ([facility] Name Value Range Interpretation Code Description Data Susan rce(s) Supporting Document(s) Glu 128 mg/dL 70-110 Above high normal [facility] ([facility] CHRONIC KIDNEY DISEASE STAGING PER NKF: MALE [...] DESIRABLE: <130 MG/DL <110 MG/DL BORDERLINE-HIGH RISK: 130- 159 MG/DL 110-129 MG/DL HIGH RISK: >160 MG/DL >130 MG/DL *CHILDREN AND ADOLESCENTS REPRESENTS INDIVIDUALA AGED 2-19 YEARS EXCLUSIVE. Creat 0.7 mg/dL 0.7-1.2 [facility] ([facility] CHRONIC KIDNEY DISEASE STAGING PER NKF: MALE [...] DESIRABLE: <130 MG/DL <110 MG/DL BORDERLINE-HIGH RISK: 130- 159 MG/DL 110-129 MG/DL HIGH RISK: >160 MG/DL >130 MG/DL *CHILDREN AND ADOLESCENTS REPRESENTS INDIVIDUALA AGED 2-19 YEARS EXCLUSIVE. BUN 16 mg/dL 8-[address] [facility] CHRONIC KIDNEY DISEASE STAGING PER NKF: MALE [...] DESIRABLE: <130 MG/DL <110 MG/DL BORDERLINE-HIGH RISK: 130- 159 MG/DL 110-129 MG/DL HIGH RISK: >160 MG/DL >130 MG/DL *CHILDREN AND ADOLESCENTS REPRESENTS INDIVIDUALA AGED 2-19 YEARS EXCLUSIVE. BUN/Creatinine Ratio 21.1 CALC [facility] ([facility] CHRONIC KIDNEY DISEASE STAGING PER NKF: MALE [...] DESIRABLE: <130 MG/DL <110 MG/DL BORDERLINE-HIGH RISK: 130- 159 MG/DL 110-129 MG/DL HIGH RISK: >160 MG/DL >130 MG/DL *CHILDREN AND ADOLESCENTS REPRESENTS INDIVIDUALA AGED 2-19 YEARS EXCLUSIVE. K 4.4 mmol/L 3.5-5.1 [facility] CHRONIC KIDNEY DISEASE STAGING PER NKF: MALE [...] DESIRABLE: <130 MG/DL <110 MG/DL BORDERLINE-HIGH RISK: 130- 159 MG/DL 110-129 MG/DL HIGH RISK: >160 MG/DL >130 MG/DL *CHILDREN AND ADOLESCENTS REPRESENTS INDIVIDUALA AGED 2-19 YEARS EXCLUSIVE. Na 139 mmol/L 136-145 [facility] ([facility] CHRONIC KIDNEY DISEASE STAGING PER NKF: MALE [...] DESIRABLE: <130 MG/DL <110 MG/DL BORDERLINE-HIGH RISK: 130- 159 MG/DL 110-129 MG/DL HIGH RISK: >160 MG/DL >130 MG/DL *CHILDREN AND ADOLESCENTS REPRESENTS INDIVIDUALA AGED 2-19 YEARS EXCLUSIVE. CL 102.2 mmol/L 98.0-107.0 [facility] ([facility] CHRONIC KIDNEY DISEASE STAGING PER NKF: MALE [...] DESIRABLE: <130 MG/DL <110 MG/DL BORDERLINE-HIGH RISK: 130- 159 MG/DL 110-129 MG/DL HIGH RISK: >160 MG/DL >130 MG/DL *CHILDREN AND ADOLESCENTS REPRESENTS INDIVIDUALA AGED 2-19 YEARS EXCLUSIVE. Co2 25.4 mmol/L 22.0-29.0 [facility] ([facility] CHRONIC KIDNEY DISEASE STAGING PER NKF: MALE [...] DESIRABLE: <130 MG/DL <110 MG/DL BORDERLINE-HIGH RISK: 130- 159 MG/DL 110-129 MG/DL HIGH RISK: >160 MG/DL >130 MG/DL *CHILDREN AND ADOLESCENTS REPRESENTS INDIVIDUALA AGED 2-19 YEARS EXCLUSIVE. TP 6.4 g/dL 6.6-8.7 Below low normal [facility] ( [facility] CHRONIC KIDNEY DISEASE STAGING PER NKF: MALE [...] DESIRABLE: <130 MG/DL <110 MG/DL BORDERLINE-HIGH RISK: 130- 159 MG/DL 110-129 MG/DL HIGH RISK: >160 MG/DL >130 MG/DL *CHILDREN AND ADOLESCENTS REPRESENTS INDIVIDUALA AGED 2-19 YEARS EXCLUSIVE. CA 9.3 mg/dL 8.6-10.2 [facility] ([facility] CHRONIC KIDNEY DISEASE STAGING PER NKF: MALE [...] DESIRABLE: <130 MG/DL <110 MG/DL BORDERLINE-HIGH RISK: 130- 159 MG/DL 110-129 MG/DL HIGH RISK: >160 MG/DL >130 MG/DL *CHILDREN AND ADOLESCENTS REPRESENTS INDIVIDUALA AGED 2-19 YEARS EXCLUSIVE. Alb 4.9 g/dL 3.5-5.2 [facility] CHRONIC KIDNEY DISEASE STAGING PER NKF: MALE [...] DESIRABLE: <130 MG/DL <110 MG/DL BORDERLINE-HIGH RISK: 130- 159 MG/DL 110-129 MG/DL HIGH RISK: >160 MG/DL >130 MG/DL *CHILDREN AND ADOLESCENTS REPRESENTS INDIVIDUALA AGED 2-19 YEARS EXCLUSIVE. A/G Ratio 3.3 CALC [facility] ([facility] CHRONIC KIDNEY DISEASE STAGING PER NKF: MALE [...] DESIRABLE: <130 MG/DL <110 MG/DL BORDERLINE-HIGH RISK: 130- 159 MG/DL 110-129 MG/DL HIGH RISK: >160 MG/DL >130 MG/DL *CHILDREN AND ADOLESCENTS REPRESENTS INDIVIDUALA AGED 2-19 YEARS EXCLUSIVE. Globulin 1.5 CALC [facility] CHRONIC KIDNEY DISEASE STAGING PER NKF: MALE [...] DESIRABLE: <130 MG/DL <110 MG/DL BORDERLINE-HIGH RISK: 130- 159 MG/DL 110-129 MG/DL HIGH RISK: >160 MG/DL >130 MG/DL *CHILDREN AND ADOLESCENTS REPRESENTS INDIVIDUALA AGED 2-19 YEARS EXCLUSIVE. Alt (SGPT) 9 U/L 0-41 [facility] CHRONIC KIDNEY DISEASE STAGING PER NKF: MALE [...] DESIRABLE: <130 MG/DL <110 MG/DL BORDERLINE-HIGH RISK: 130- 159 MG/DL 110-129 MG/DL HIGH RISK: >160 MG/DL >130 MG/DL *CHILDREN AND ADOLESCENTS REPRESENTS INDIVIDUALA AGED 2-19 YEARS EXCLUSIVE. Alp 65.2 U/L 40-129 [facility] CHRONIC KIDNEY DISEASE STAGING PER NKF: MALE [...] DESIRABLE: <130 MG/DL <110 MG/DL BORDERLINE-HIGH RISK: 130- 159 MG/DL 110-129 MG/DL HIGH RISK: >160 MG/DL >130 MG/DL *CHILDREN AND ADOLESCENTS REPRESENTS INDIVIDUALA AGED 2-19 YEARS EXCLUSIVE. Ast (Sgot) 11 U/L 0-40 [facility] ([facility] CHRONIC KIDNEY DISEASE STAGING PER NKF: MALE [...] DESIRABLE: <130 MG/DL <110 MG/DL BORDERLINE-HIGH RISK: 130- 159 MG/DL 110-129 MG/DL HIGH RISK: >160 MG/DL >130 MG/DL *CHILDREN AND ADOLESCENTS REPRESENTS INDIVIDUALA AGED 2-19 YEARS EXCLUSIVE. Tbili 0.44 mg/dL 0.0-1.2 [facility] ([facility] CHRONIC KIDNEY DISEASE STAGING PER NKF: MALE [...] DESIRABLE: <130 MG/DL <110 MG/DL BORDERLINE-HIGH RISK: 130- 159 MG/DL 110-129 MG/DL HIGH RISK: >160 MG/DL >130 MG/DL *CHILDREN AND ADOLESCENTS REPRESENTS INDIVIDUALA AGED 2-19 YEARS EXCLUSIVE. Osmolality-Calculated 279.9 CALC MED ENT ([facility] CHRONIC KIDNEY DISEASE STAGING PER NKF: MALE [...] DESIRABLE: <130 MG/DL <110 MG/DL BORDERLINE-HIGH RISK: 130- 159 MG/DL 110-129 MG/DL HIGH RISK: >160 MG/DL >130 MG/DL *CHILDREN AND ADOLESCENTS REPRESENTS INDIVIDUALA AGED 2-19 YEARS EXCLUSIVE. Anion Gap 16 mmol/L [facility] ([facility] CHRONIC KIDNEY DISEASE STAGING PER NKF: MALE [...] DESIRABLE: <130 MG/DL <110 MG/DL BORDERLINE-HIGH RISK: 130- 159 MG/DL 110-129 MG/DL HIGH RISK: >160 MG/DL >130 MG/DL *CHILDREN AND ADOLESCENTS REPRESENTS INDIVIDUALA AGED 2-19 YEARS EXCLUSIVE. eGFR 103 # [facility] ( [facility] CHRONIC KIDNEY DISEASE STAGING PER NKF: MALE [...] DESIRABLE: <130 MG/DL <110 MG/DL BORDERLINE-HIGH RISK: 130- 159 MG/DL 110-129 MG/DL HIGH RISK: >160 MG/DL >130 MG/DL *CHILDREN AND ADOLESCENTS REPRESENTS INDIVIDUALA AGED 2-19 YEARS EXCLUSIVE. eGFR Non-Afr. Kyrgyz 89 # [facility] ([facility] CHRONIC KIDNEY DISEASE STAGING PER NKF: MALE [...] DESIRABLE: <130 MG/DL <110 MG/DL BORDERLINE-HIGH RISK: 130- 159 MG/DL 110-129 MG/DL HIGH RISK: >160 MG/DL >130 MG/DL *CHILDREN AND ADOLESCENTS REPRESENTS INDIVIDUALA AGED 2-19 YEARS EXCLUSIVE. ID Date Data Source [id number] 09/04/2020 09:02:00 AM EDT [facility] ([facility] Name Value Range Interpretation Code Description Data Susan rce(s) Supporting Document(s) Hemoglobin A1c/Hemoglobin.total in Blood 6.1 % 4.50-6.20 [facility] ([facility] ID Date Data Source [id number] 09/04/2020 09:02:00 AM EDT [facility] ([facility] Name Value Range Interpretation Code Description Data Susan rce(s) Supporting Document(s) Chol 171 mg/dL 0-200 [facility] ([facility] CHRONIC KIDNEY DISEASE STAGING PER NKF: MALE [...] DESIRABLE: <130 MG/DL <110 MG/DL BORDERLINE-HIGH RISK: 130- 159 MG/DL 110-129 MG/DL HIGH RISK: >160 MG/DL >130 MG/DL *CHILDREN AND ADOLESCENTS REPRESENTS INDIVIDUALA AGED 2-19 YEARS EXCLUSIVE. Trig 58 mg/dL 35-200 [facility] ([facility] CHRONIC KIDNEY DISEASE STAGING PER NKF: MALE [...] DESIRABLE: <130 MG/DL <110 MG/DL BORDERLINE-HIGH RISK: 130- 159 MG/DL 110-129 MG/DL HIGH RISK: >160 MG/DL >130 MG/DL *CHILDREN AND ADOLESCENTS REPRESENTS INDIVIDUALA AGED 2-19 YEARS EXCLUSIVE. Cholesterol in HDL [Mass/volume] in Serum or Plasma 53 mg/dL 35-[address] [facility] ([facility] CHRONIC KIDNEY DISEASE STAGING PER NKF: MALE [...] DESIRABLE: <130 MG/DL <110 MG/DL BORDERLINE-HIGH RISK: 130- 159 MG/DL 110-129 MG/DL HIGH RISK: >160 MG/DL >130 MG/DL *CHILDREN AND ADOLESCENTS REPRESENTS INDIVIDUALA AGED 2-19 YEARS EXCLUSIVE. Cho/HDL Ratio 3.2 CALC [facility] ([facility] CHRONIC KIDNEY DISEASE STAGING PER NKF: MALE [...] DESIRABLE: <130 MG/DL <110 MG/DL BORDERLINE-HIGH RISK: 130- 159 MG/DL 110-129 MG/DL HIGH RISK: >160 MG/DL >130 MG/DL *CHILDREN AND ADOLESCENTS REPRESENTS INDIVIDUALA AGED 2-19 YEARS EXCLUSIVE. LDL_C 106 Calc 75-129 [facility] ([facility] CHRONIC KIDNEY DISEASE STAGING PER NKF: MALE [...] DESIRABLE: <130 MG/DL <110 MG/DL BORDERLINE-HIGH RISK: 130- 159 MG/DL 110-129 MG/DL HIGH RISK: >160 MG/DL >130 MG/DL *CHILDREN AND ADOLESCENTS REPRESENTS INDIVIDUALA AGED 2-19 YEARS EXCLUSIVE. ID Date Data Source [id number] 08/31/2020 01:46:00 PM EDT [facility] ([facility] Name Value Range Interpretation Code Description Data Susan rce(s) Supporting Document(s) Glucose, Fasting 136 mg/dL 70-100 Above high normal M EDENT ([facility] Blood Urea Nitrogen 18 mg/dL 7-18 Normal (applies to non-nume reid results) [facility] ([facility] Creatinine For GFR 0.86 mg/dL 0.70-1.30 Normal (applies to non -numeric results) [facility] ([facility] Sodium Level 139 meq/L 136-145 Normal (applies to non-numeric res ults) [facility] ([facility] Glomerular Filtration Rate Laboratory test result Normal (applies to non- numeric results) [facility] <content>Units are mL/min/1.73 m2</content>
<content></content>
<content>Chronic Kidney Disease Staging per NKF:</content>
<content></content>
<content>Stage I & II GFR >=60 Normal to Mildly Decreased</content>
<content>Stage III GFR 30- 59 Moderately Decreased</content>
<content>Stage IV GFR 15-29 Severely Decreased</content>
<content>Stage V GFR <15 Very Little GFR Left</content>
<content>ESRD GFR <15 on GRAIN TRADER</content>
<content></content> Potassium Serum 4.1 meq/L 3.5-5.1 Normal (applies to non-numeric results) [facility] ([facility] Chloride Level 106 meq/L 98-107 Normal (applies to non-numeric r esults) [facility] ([facility] Carbon Dioxide Level 26 meq/L 21-32 Normal (applies to non-num mckenzie results) [facility] ([facility] Anion Gap 7 meq/L 8-16 Below low normal [facility] Ast/Sgot 11 U/L 7-37 Normal (applies to non-numeric resul ts) [facility] ([facility] Calcium Level 9.2 mg/dL 8.8-10.2 Normal (applies to non-numeric re sults) [facility] ([facility] Alkaline Phosphatase 60 U/L 45-117 Normal (applies to non-num mckenzie results) [facility] ([facility] Alt/SGPT 14 U/L 12-78 Normal (applies to non-numeric resul ts) [facility] ([facility] Bilirubin,Total 0.7 mg/dL 0.2-1.0 Normal (applies to non-numeric results) [facility] ([facility] Total Protein 6.8 GM/DL 6.4-8.2 Normal (applies to non-numeric re sults) [facility] ([facility] Albumin 4.4 GM/DL 3.2-5.2 Normal (applies to non-numeric resul ts) [facility] ([facility] Albumin/Globulin Ratio 1.8 Normal (applies to non-n umeric results) [facility] ([facility] ID Date Data Source [id number] 08/31/2020 01:46:00 PM EDT [facility] ([facility] Name Value Range Interpretation Code Description Data Susan rce(s) Supporting Document(s) White Blood Count 9.6 10 4.0-10.0 Normal (applies to non-numeri c results) [facility] ([facility] A Pathologist review of this differentia l can help in the evaluation of a differential diagnosis. Please order a Pathologist Review (PERISM) if deemed necessary. Results are subject to change if a Pathologist Review is performed. Red Blood Count 4.52 10 4.30-6.10 Normal (applies to non-numeric results) [facility] ([facility] Hemoglobin 14.9 g/dL 13.5-17.5 Normal (applies to non-numeric resul ts) [facility] ([facility] Hematocrit 43.3 % 42.0-52.0 Normal (applies to non-numeric resul ts) [facility] ([facility] Mean Corpuscular Volume 95.8 fl 80.0-96.0 Normal ( applies to non-numeric results) [facility] ([facility] Mean Corpuscular Hemoglobin 33.0 pg 27.0-33.0 Norm al (applies to non-numeric results) [facility] ([facility] ) Mean Corpuscular HGB Conc 34.4 g/dL 32.0-36.5 Normal (applies to non-numeric results) [facility] ([facility] ) Platelet Count, Automated 202 10 150-450 Normal (applies to non-numeric results) [facility] ([facility] ) Red Cell Distribution Width 12.1 % 11.5-14.5 Norm al (applies to non-numeric results) [facility] ([facility] ) Neutrophils % 53.6 % 36.0-66.0 Normal (applies to non-numeric re sults) [facility] ([facility] Lymph % 6.8 % 24.0-44.0 Below low normal [facility] ( [facility] Lamar % 37.0 % 2.0-8.0 Above high normal [facility] ([facility] Eos % 0.8 % 0.0-3.0 Normal (applies to non-numeric resul ts) [facility] ([facility] Baso % 0.2 % 0.0-1.0 Normal (applies to non-numeric resul ts) [facility] ([facility] Immature Granulocyte % 1.6 % 0-3.0 Normal (applies to non-n umeric results) [facility] ([facility] Nucleated Red Blood Cell % 0.0 % 0-0 Normal (applies to n on-numeric results) [facility] ([facility] Neutrophils # 5.2 10 1.5-8.5 Normal (applies to non-numeric re sults) [facility] ([facility] Lymph # 0.7 10 1.5-5.0 Below low normal [facility] ( [facility] Eos # 0.1 10 0.0-0.5 Normal (applies to non-numeric resul ts) [facility] ([facility] Lamar # 3.6 10 0.0-0.8 Above high normal [facility] ([facility] Baso # 0.0 10 0.0-0.2 Normal (applies to non-numeric resul ts) [facility] ([facility] ID Date Data Source [id number] 08/18/2020 03:07:58 PM EDT Lab [facility] [address] [address]Fyf# Surgical Pathology ReportPatient Name: TRACE BEAL: 1940Accession #:[id number](s) ReceivedA: Duodenal bx, questionable adenomaClinical Diagnosis and HistoryPancreatic body massDIAGNOSISDUODENUM, BIOPSY: PEPTIC DUODENITIS AND REACTIVE EPITHELIAL CHANGES. SEE COMMENTCommentsThe histologic sections show hyperplastic surface epithelium with focalgastric surface cell metaplasia, acute and chronic inflammation andreactive cytological atypia. Prominent Michell glands are also present.There is no evidence of dysplasia/invasive carcinoma. Deeper levels havebeen examined. The patient's clinical history of pancreatic mass is noted.The case has been reviewed by a second pathologist who concurs with theabove interpretation. Gross DescriptionReceived in formalin labeled "duodenal biopsy questionable adenoma" is a0.5 cm yanez-pink irregular fragment of tissue. Entirely submitted as A1. Multilevel. jmartir/luisat Reported: 08/18/2020Electronically Signed Out By Denise Luque MD [facility] [place], [place] [address]piwMhvspomxi component performed at [facility] [employer] [facility], [facility], [address], [place], [address].[facility] at [facility], [address], [place], [address]. This report may includeimmunohistochemical or in-situ hybridization results. Testing wasdeveloped and the performance characteristics determined by [employer] [employer] as required by CLIA '88. The FDA hasdetermined that approval for specific use is not necessary for clinicaluse. The quality of Hematoxylin and Eosin stains and as applicable, forall immunohistochemical and/or special stains, including positive andnegative controls, were reviewed and considered appropriate.ICD codes K86.9CPT codesA: 01149S Name Value Range Interpretation Code Description Data Susan rce(s) Supporting Document(s) ID Date Data Source [id number] 08/12/2020 10:55:00 AM EDT [facility] INFORMATIONPatient MRN Name Date of Age Gend*PT [id number] Trace Beal 1940 80 years M OPPT Location Admission Date/Time Visit ID [facility] 0741 --- Jose Newton DO([id number]) EPI ID CSN Admitting Provider [id number] Jose Newton DO([id number])Endoscopic Gastroduodenoscopy with Endoscopic Ultrasound Procedure NotePatient: Trace BealSurgery Date: August 12urgeon(s):HAN Gomesre-Operative Diagnosis: Pancreatic massPost-Op Diagnosis Codes: * Pancreatic mass [K86.89]: a 3.2 x 1.2 cm pancreatic body mass. The mass isobstructing the main pancreatic duct * Duodenal mucosa irregularity, ? Focal area of adenomaRecommendations:1. Await pathology.2. PET scan for cancer staging if biopsy confirms adenocarcinoma3. Office follow up in 2 weeks Procedures:EGD and duodenal biopsiesEUS and FNB of a pancreatic body massSedation: Monitored Anesthesia Care (MAC) (see anesthesia report).ASA Class: IIIOther Equipment Type Equipment Setting Setting Low Setting High Applied By Endoscope ENDOSCOPE PENTAX [id number] Jose Newton DO ERCP Scope (ENDO) Radial Endoscope Ultrasound (ENDO) ENDOSCOPE RADIAL ULTRASOUND ([facility] END[facility])[id number] Jose Newton DO Linear Endoscope Ultrasound (ENDO) Endoscopic Ultrasound MachineConsent:After obtaining history and performing the physical examination, the procedure,indications, potential complications, including but not limited to bleeding,perforation, infection, adverse medication reaction, and alternatives wereexplained to the patient. Patient appeared to understand the benefits and risksof this procedure. Informed consent was obtained from the patient afterproviding opportunity for questions.Procedure Details:The gastroscope was inserted into the mouth and advanced under directvisualization to second portion of the duodenum. A careful inspection was madeas the gastroscope was withdrawn, including a retroflexed view of the proximalstomach. Subsequently, Pentax radial and then linear array echo endoscope wasinserted into the mouth and advanced to the second portion of the duodenum.After completion of the examination, the patient was transferred to the recoveryroom.* No implants in log *Endoscopic Findings:Duodenum 2nd Portion: There is a focal area of mucosal irregularity, ? adenoma.BiopsiedEUS Findings:Mediastinum: No pleural effusion, pericardial effusion, posterior mediastinummass, and mediastinum adenopath yCeliac Region: No adenopathy. The left adrenal gland appeared prominentPancreas: Appeared abnormal and heterogenous. There is a hypoechoic mass in thebody of he pancreas, measured 3.2 x 1.2 cm, The mass is obstructing the mainPD. A transition zone has been identified within the mass. The main PD ismeasured 5.1 mm in the body of pancreas. No obvious peripancreatic adenopathy orfluid collection. Pentax linear array echoendoscope was used to obtain FNB fromthe mass. Projected needle track was scanned with doppler to avoid puncture ofintervening blood vessels. Using a 22 gauge [employer] Acquired EUSaspiration needle, two needle passes were made.Stomach: Normal; no perigastric/gastrohepatic ligament adenopathy. Noperigastric fluid collection or ascitesHepatobiliary: CBD is measured 5.6 mm; No stonesAmpulla: NormalGall Bladder: Normal; gallbladder wall is measured 1.4 mmLiver: Normal.Specimens:ID Type Source Tests Collected by Time DestinationA : duodenal, questionable adenoma Tissue Biopsy SURGICAL PATHOLOGY EXAM DO Johana 08/12/2020 1008B : pancreatic body mass Tissue FNA SURGICAL PATHOLOGY EXAM Jose Newton 08/12/2020 1034Complications: None; patient tolerated the procedure well.Estimated Blood Loss: noneJose Newton 110:44 AM Name Value Range Interpretation Code Description Data Susan rce(s) Supporting Document(s) ID Date Data Source [id number] 08/12/2020 09:28:04 AM EDT [facility] INFORMATIONPatient MRN Name Date of Age Gend*PT [id number] Trace Beal 1940 80 years M OPPT Location Admission Date/Time Visit ID [facility]ending [facility] [place] [facility]/12/20 0741 --- Jose Newton DO([id number]) EPI ID CSN Admitting Provider [id number] Jose DO Lamar([id number])HISTORY AND PHYSICALLeo W RadhacolumbaMRN: [id number]: Pancreatic body massPLAN:1. Proceed with EUS guided biopsy of the pancreas to provide tissue diagnosisHPI: Patient presents today for EUS examination of the pancreas. Patient hassignificant aortic stenosis. He was evaluated by coil cleaner and a TAVRprocedure was considered. His preoperative CT scan of the chest and abdomenfound a 2 cm pancreatic body mass with a 1 cm nonspecific lymph nodes. Tissuediagnosis of this mass is needed before cardiac intervention.Allergies:Patient has no known drug allergies.Medications:Medications Prior to AdmissionMedication Sig Dispense Refill Last Dose aspirin EC 81 MG EC tablet Take 1 tablet (81 mg total) by mouth daily08/11/2020 at Unknown time DAILY MARCELLE (THERAGRAN) per tablet Take 1 tablet by mouth daily 08/11/2020 atUnknown time Flaxseed, Linseed, (FLAX PO) Take by mouth 08/11/2020 at Unknown time Iodine, Kelp, (KELP PO) Take by mouth 08/11/2020 at Unknown time Cholecalciferol (VITAMIN D) 50 MCG (1999 UT) tablet Take 2,000 Units by mouthdaily More than a month at Unknown timePast Medical History:Past Medical History:Diagnosis Date Abnormal Doppler ultrasound of carotid artery 09/02/2019 [facility]. Bilateral less then 50% stenosis Arthritis Cancer H/O echocardiogram 03/22/2019 LV EF 60%, severe (mean gradient 48mmHg, LORA 0.8cm2) Prostate cancer UrolithiasisPast Surgical History:Past Surgical History:Procedure Laterality Date CARDIAC CATHETERIZATION N/A 06/18/2020 Procedure: Right heart cath; Surgeon: Jeovany Fletcher MD; Laterality: N/A; CARDIAC CATHETERIZATION N/A 06/18/2020 Procedure: Left heart cath; Surgeon: Jeovany Fletcher MD; Laterality: N/A; CARDIAC CATHETERIZATION N/A 06/18/2020 Procedure: Coronary angiography; Surgeon: Jeovany Fletcher MD; Laterality:N/A; CARDIAC CATHETERIZATION N/A 06/18/2020 Procedure: Left ventriculography; Surgeon: Jeovany Fletcher MD; Laterality:N/A; colonscopy HERNIA REPAIR PROSTATECTOMY 1999Family History:Family HistoryProblem Relation Age of Onset Diabetes Mother Alcohol abuse FatherSocial History:Social HistoryTobacco Use Smoking status: Former Smoker Packs/day: 1.00 Years: 25.00 Pack years: 2 5.00 Types: Cigarettes Quit date: 1969 Years since quittin.4 Smokeless tobacco: Never UsedVaping Use Vaping Use: Never usedSubstance Use Topics Alcohol use: Not Currently Alcohol/week: 2.0 standard drinks Types: 2 Cans of beer per week Comment: summer time Drug use: NeverReview of Systems:Const: Denies constitutional symptoms.Eyes: Denies eye symptoms.ENMT: Denies ear symptoms. Denies nasal symptoms. Denies mouth or throatsymptoms.CV: SOBResp: Denies respiratory symptoms.GI: Denies gastrointestinal symptoms.: Denies genitourinary symptomsMusculo: Denies muscu loskeletal symptoms.Skin: Denies skin, hair and nail symptoms.Breast: Denies breast problems.Neuro: Denies neurologic symptoms.Psych: Denies psychiatric symptoms.Endocrine: Denies endocrine symptoms.Salomon/Lymph: Denies hematologic symptoms.Physical Exam:Temp: [98.1 F] 98.1 FHeart Rate: [69] 69Const: Appeared healthy and well developed. No signs of apparent distresspresent.Head/Face: Atraumatic, normocephalic on inspection.Eyes: Conjunctivae clear. Sclerae clear and anicteric.ENMT: Nasal mucosa is pink and moist. Adequate airway. Lips: Appear normal andhealthy. Resp: Auscultate good airflow. Lungs are clear bilaterally.CV: Rate is regular by auscultation. Rhythm is regular. S1 is normal. S2 isnormal. No heart murmur appreciated. Pedal pulses: 2+ and equal bilaterally.Extremities: No clubbing, cyanosis or edema.Abdomen: Abdomen is soft, nontender, and nondistended without guarding, rigidityor rebound tenderness. No pulsatile masses present.Signature: LIBBY Gomesate: August 12, 2020Time: 9:26 AM Name Value Range Interpretation Code Description Data Susan rce(s) Supporting Document(s) ID Date Data Source [id number] 08/23/2020 12:38:09 PM EDT [facility] LABORATORY [address] [address]Tbf# MISCELLANEOUS CYTOLOGY REPORTAccession Number: [id number] of Specimen(s): A: Pancreas Mass Aspirate Body FNAClinical Diagnosis and History: Pancreatic massGross DescriptionPancreas Mass Aspirate Body FNA: Received in Saccomanno fixative with acell block.Final DiagnosisSpecimen AdequacySatisfactoryFinal DiagnosisPOSITIVE FOR MALIGNANCY Malignant cells present, consistent with adenocarcinoma.The cell block contains a fragment with perineural invasion.Comments:One other pathologist reviewed this case and concurs with the diagnosis.Processed and screened at Laboratory [facility],Cytology, [address] [place] [address], [id number].As applicable, positive and negative controls for all immunohistochemicaland/or special stains were reviewed and considered appropriate. Reported: 08/23/2020Electronically Signed Out By Riaz Sheth MDMaria F[facility] Hospital PatholoCytotechnologist: Brina Queen CT(ASCP)[facility]bcICD code: C25.1CPT code: A: 77103H, 88369H Name Value Range Interpretation Code Description Data Susan rce(s) Supporting Document(s) ID Date Data Source [id number] 07/16/2020 11:54:00 AM EDT [facility] [address] [place] [address] PHONE: [phone] FAX: [phone] Name .................. : ANSLEMO KILLIAN Acct Number.................. : [id number] ROOM. ................. : Number ................... : [id number] Stay type ............. : O/P Discharge Date......... ... : 07/15/20 Admit Date ......... : 07/15/20 Admit Phys .................... : MITCH Lopez Date of ....... : 1940 Family Phys ................... : MITCH Lopez Phone .................. : [phone] Age ................................ : 80 Film# .................. .:[id number] Sex ................................. : M Unsigned transcriptions are preliminary reports and do not represent a medical or legal document MRI ABDOMEN W/O CONTRAST [id number] COMPLETE:07/15/20 07:49 [facility] [id number] Reason for Exam: MRCP, AMALIGNANT NEOPLASM BODY OF PANCREAS MRI OF THE ABDOMEN WITHOUT CONTRAST (MRCP): TECHNIQUE: Magnetic resonance cholangiopancreatography is performed without the use of intravenous contrast. COMPARISON: None available. FINDINGS: The common bile duct is not significantly dilated for a patient this age. The common bile duct measures 4 mm. The common hepatic duct measures up to 7 mm. The distal most aspect of the d uct is not well-visualized. Most of the pancreatic duct is not adequately visualized. There appears to be dilatation of the duct and the tail of the pancreas is difficult to characterize on the current study. Suggest MRCP for further evaluation if clinically warranted. Evaluation of the remainder of the abdomen is limited as the study is not performed for optimal evaluation of the abdomen. There is a 7 mm high T2 signal lesion in the head of the pancreas which cannot be further characterized on the current study. Consider diagnostic imaging of the abdomen. If there is concern for malignancy, PET scanning should be considered. Again, this study is not performed for optimal evaluation of the remainder of the abdomen. The liver is not enlarged. The spleen is enlarged to 14 cm. There is what appears to be a left adrenal mass measuring up to 1.4 x 1 cm which cannot be further characterized on the current study. There are what apparently represents parapelvic cysts, but again, this is difficult to further characterize on the current examination. No filling defects were appreciated within the gallbladder within the limits of the current study. IMPRESSION: Findings appear to represent dilatation of the pancreatic duct in the tail of the pancreas, difficult to further characterize on the current study and ERCP is suggested for further evaluation. Clinical correlation is advised as to the need for further evaluation of the abdomen and pelvis, Page 1 of 2 [place] [address] PHONE: [phone] FAX: [phone] Name .................. : ANSELMO PRESTONO Acct Number.................. : [id number] ROOM. ................. : Number ................... : [id number] Stay type ............. : O/P Discharge Date......... ... : 07/15/20 Admit Date ......... : 07/15/20 Admit Phys .................... : MITCH Lopez Date of ....... : 1940 Family Phys ................... : MITCH Lopez Phone .................. : [phone] Age ................................ : 80 Film# .................. .:[id number] Sex ................................. : M Unsigned transcriptions are preliminary reports and do not represent a medical or legal document MRI ABDOMEN W/O CONTRAST [id number] COMPLETE:07/15/20 07:49 [facility] [id number] Reason for Exam: MRCP, AMALIGNANT NEOPLASM BODY OF PANCREAS which could include oziel gnostic imaging with CT or MRI as well as PET scanning if there is sign concern for more imaging. Electronically Reviewed and Signed By Fitz Shetty MD , 07/16/20 11:55, AML Transcribe Initials: PÉREZ , Transcribe Date: 07/15/20 15:37, Dictation Date: Copy for: MITCH LUNA via fax Copy for: [facility] REC Page 2 of 2 Name Value Range Interpretation Code Description Data Susan rce(s) Supporting Document(s) ID Date Data Source [id number] 06/30/2020 03:03:00 PM EDT [facility] ([facility] Name Value Range Interpretation Code Description Data Susan rce(s) Supporting Document(s) BUN 14 mg/dL 8-23 [facility] ([facility] NORMAL RANGES Age WBC RBC HGB HCT [...] HCT IS 5% LESS SOURCE FOR DATA: MeinProspekt 1800 OPERATION MANUAL( AUTOMATED BLOOD COUNTS AND [...] Normal 80 and above >32 mL/min Normal Glu 147 mg/dL 70-110 Above high normal [facility] ([facility] NORMAL RANGES Age WBC RBC HGB HCT [...] HCT IS 5% LESS SOURCE FOR DATA: MeinProspekt 1800 OPERATION MANUAL( AUTOMATED BLOOD COUNTS AND [...] Normal 80 and above >32 mL/min Normal Creat 0.8 mg/dL 0.7-1.2 [facility] ([facility] NORMAL RANGES Age WBC RBC HGB HCT [...] HCT IS 5% LESS SOURCE FOR DATA: MeinProspekt 1800 OPERATION MANUAL( AUTOMATED BLOOD COUNTS AND [...] Normal 80 and above >32 mL/min Normal BUN/Creatinine Ratio 18.3 [facility] ([facility] NORMAL RANGES Age WBC RBC HGB HCT [...] HCT IS 5% LESS SOURCE FOR DATA: CARSON DYN 1800 OPERATION MANUAL( AUTOMATED BLOOD COUNTS AND [...] Normal 80 and above >32 mL/min Normal Na 137 mmol/L 136-145 [facility] ([facility] NORMAL RANGES Age WBC RBC HGB HCT [...] HCT IS 5% LESS SOURCE FOR DATA: MeinProspekt 1800 OPERATION MANUAL( AUTOMATED BLOOD COUNTS AND [...] Normal 80 and above >32 mL/min Normal CL 98.2 mmol/L 98.0-107.0 [facility] ([facility] NORMAL RANGES Age WBC RBC HGB HCT [...] HCT IS 5% LESS SOURCE FOR DATA: MeinProspekt 1800 OPERATION MANUAL( AUTOMATED BLOOD COUNTS AND [...] Normal 80 and above >32 mL/min Normal K 4.2 mmol/L 3.5-5.1 [facility] ([facility] NORMAL RANGES Age WBC RBC HGB HCT [...] HCT IS 5% LESS SOURCE FOR DATA: MeinProspekt 1800 OPERATION MANUAL( AUTOMATED BLOOD COUNTS AND [...] Normal 80 and above >32 mL/min Normal Co2 24.1 mmol/L 22.0-29.0 [facility] ([facility] NORMAL RANGES Age WBC RBC HGB HCT [...] HCT IS 5% LESS SOURCE FOR DATA: MeinProspekt 1800 OPERATION MANUAL( AUTOMATED BLOOD COUNTS AND [...] Normal 80 and above >32 mL/min Normal CA 9.7 mg/dL 8.6-10.2 [facility] ([facility] NORMAL RANGES Age WBC RBC HGB HCT [...] HCT IS 5% LESS SOURCE FOR DATA: MeinProspekt 1800 OPERATION MANUAL( AUTOMATED BLOOD COUNTS AND [...] Normal 80 and above >32 mL/min Normal TP 6.5 g/dL 6.6-8.7 Below low normal [facility] ( [facility] NORMAL RANGES Age WBC RBC HGB HCT [...] HCT IS 5% LESS SOURCE FOR DATA: MeinProspekt 1800 OPERATION MANUAL( AUTOMATED BLOOD COUNTS AND [...] Normal 80 and above >32 mL/min Normal A/G Ratio 3.7 Calc [facility] ([facility] NORMAL RANGES Age WBC RBC HGB HCT [...] HCT IS 5% LESS SOURCE FOR DATA: MeinProspekt 1800 OPERATION MANUAL( AUTOMATED BLOOD COUNTS AND [...] Normal 80 and above >32 mL/min Normal Alb 5.1 g/dL 3.5-5.2 [facility] NORMAL RANGES Age WBC RBC HGB HCT [...] HCT IS 5% LESS SOURCE FOR DATA: MeinProspekt 1800 OPERATION MANUAL( AUTOMATED BLOOD COUNTS AND [...] Normal 80 and above >32 mL/min Normal Alt (SGPT) 9 U/L 0-41 [facility] ([facility] NORMAL RANGES Age WBC RBC HGB HCT [...] HCT IS 5% LESS SOURCE FOR DATA: MeinProspekt 1800 OPERATION MANUAL( AUTOMATED BLOOD COUNTS AND [...] Normal 80 and above >32 mL/min Normal Alp 60.0 U/L 40-129 [facility] NORMAL RANGES Age WBC RBC HGB HCT MCV PLT Adult M 4.1-10.9 4.20-6.30 12.0-18.0 37.0-51.0 80- 140-440 Adult F 4.1-10.9 4.04-5.48 12.0-18.0 37.0-51.0 80- 140-440 0 -1 Yr 5.0-20.0 3.9-5.9 15-18 [...] HCT IS 5% LESS SOURCE FOR DATA: TriviaPad DYN 1800 OPERATION MANUAL( AUTOMATED BLOOD COUNTS AND [...] Normal 80 and above >32 mL/min Normal Globulin 1.4 Calc [facility] NORMAL RANGES Age WBC RBC HGB HCT [...] HCT IS 5% LESS SOURCE FOR DATA: MeinProspekt 1800 OPERATION MANUAL( AUTOMATED BLOOD COUNTS AND [...] Normal 80 and above >32 mL/min Normal Tbili 0.49 mg/dL 0.0-1.2 [facility] ([facility] NORMAL RANGES Age WBC RBC HGB HCT [...] HCT IS 5% LESS SOURCE FOR DATA: MeinProspekt 1800 OPERATION MANUAL( AUTOMATED BLOOD COUNTS AND [...] Normal 80 and above >32 mL/min Normal Osmolality-Calculated 276.7 Calc [facility] ([facility] NORMAL RANGES Age WBC RBC HGB HCT [...] HCT IS 5% LESS SOURCE FOR DATA: MeinProspekt 1800 OPERATION MANUAL( AUTOMATED BLOOD COUNTS AND [...] Normal 80 and above >32 mL/min Normal Ast (Sgot) 13 U/L 0-40 [facility] ([facility] NORMAL RANGES Age WBC RBC HGB HCT [...] HCT IS 5% LESS SOURCE FOR DATA: MeinProspekt 1800 OPERATION MANUAL( AUTOMATED BLOOD COUNTS AND [...] Normal 80 and above >32 mL/min Normal eGFR 97 # [facility] ( [facility] NORMAL RANGES Age WBC RBC HGB HCT [...] HCT IS 5% LESS SOURCE FOR DATA: MeinProspekt 1800 OPERATION MANUAL( AUTOMATED BLOOD COUNTS AND [...] Normal 80 and above >32 mL/min Normal Anion Gap 19 mmol/L [place] ([facility] NORMAL RANGES Age WBC RBC HGB HCT [...] HCT IS 5% LESS SOURCE FOR DATA: MeinProspekt 1800 OPERATION MANUAL( AUTOMATED BLOOD COUNTS AND [...] Normal 80 and above >32 mL/min Normal eGFR Non-Afr. Kyrgyz 84 # [facility] ([facility] NORMAL RANGES Age WBC RBC HGB HCT [...] HCT IS 5% LESS SOURCE FOR DATA: MeinProspekt 1800 OPERATION MANUAL( AUTOMATED BLOOD COUNTS AND [...] Normal 80 and above >32 mL/min Normal ID Date Data Source [id number] 06/30/2020 02:40:00 PM EDT [facility] ([facility] Name Value Range Interpretation Code Description Data Susan rce(s) Supporting Document(s) CBC W/Automated Diff Laboratory test result [facility] ([facility] COMPLETE BLOOD COUNT Hemoglobin 15.3 g/dL 14.0-16.0 [facility] ([facility] RBC 4.61 10^6/uL 4.50-6.30 [facility] ([facility] WBC 8.5 10^3/uL 4.2-11.0 [facility] ([facility] Hematocrit 44.2 % 41.0-51.0 [facility] ([facility] MCV 95.9 fL 80.0-94.0 Above high normal [facility] ([facility] RDW 12.5 % 11.5-14.8 [facility] ([facility] MCHC 34.6 g/dL 31.0-36.0 [facility] ([facility] MCH 33.2 pg 27.0-34.0 [facility] ([facility] MPV 11.1 fL 7.4-10.4 Above high normal [facility] ([facility] Platelets 190 10^3/uL 150-450 [facility] Neut 52.1 % 37.0-80.0 [facility] ([facility] Eos 0.9 % 0.0-7.0 [facility] Lamar 34.8 % 3.0-8.0 Above high normal [facility] ([facility] Lymph 9.8 % 25.0-40.0 Below low normal [facility] ( [facility] Baso 0.2 % 0.0-2.0 [facility] ([facility] %NRBC 0.0 % 0.0-0.0 [facility] %Ig 2.2 % 0.0-0.0 Above high normal [facility] ([facility] #Neut 4.40 10^3/uL 2.00-6.90 [facility] ([facility] #Eos 0.08 10^3/uL 0.00-0.70 [facility] ([facility] #Lamar 2.95 10^3/uL 0.00-0.90 Above high normal [facility] ([facility] #Lymph 0.83 10^3/uL 0.60-3.40 [facility] ([facility] #Baso 0.02 10^3/uL 0.00-0.20 [facility] ([facility] #Ig 0.19 10^3/uL 0.00-0.10 Above high normal [facility] ([facility] #NRBC 0.00 10^3/uL 0.00-0.00 [facility] ([facility] Manual Diff Laboratory test result M [facility] ([facility] Segs 33 % 37-80 Below low normal [facility] ([facility] %Lymph 15 % 25-40 Below low normal [facility] ([facility] Band 13 % 0-5 Above high normal [facility] ([facility] %Lamar 39 % 3-8 Above high normal [facility] ([facility] RBC Morph Laboratory test result ME [place] ([facility] ID Date Data Source [id number] 06/30/2020 08:14:00 PM EDT [facility] Name Value Range Interpretation Code Description Data Susan rce(s) Supporting Document(s) CBC W/AUTOMATED DIFF [facility] COMPLETE BLOOD COUNT Leukocytes [#/volume] in Blood by Automated count 8.5 10^3/uL 4.2 - 1 1.0 [facility] Erythrocytes [#/volume] in Blood by Automated count 4.61 10^6/uL 4. 50 - 6.30 [facility] Hemoglobin [Mass/volume] in Blood 15.3 g/dL 14.0 - 16.0 [facility] Hematocrit [Volume Fraction] of Blood by Automated count 44.2 % 4 1.0 - 51.0 [facility] Erythrocyte mean corpuscular volume [Entitic volume] by Auto mated count 95.9 fL 80.0 - 94.0 H [facility] Erythrocyte mean corpuscular hemoglobin [Entitic mass] by Automated count 33.2 pg 27.0 - 34.0 [facility] Erythrocyte mean corpuscular hemoglobin concentration [Mass/volume] by Automated count 34.6 g/dL 31.0 - 36.0 [facility] Erythrocyte distribution width [Ratio] by Automated count 12.5 % 11.5 - 14.8 [facility] Platelets [#/volume] in Blood by Automated count 190 10^3/uL 150 - 45 0 [facility] Platelet mean volume [Entitic volume] in Blood by Automated count 11.1 fL 7.4 - 10.4 H [facility] Neutrophils/100 leukocytes in Blood by Automated count 52.1 % 37. 0 - 80.0 [facility] Lymphocytes/100 leukocytes in Blood by Manual count 9.8 % 25.0 - 40.0 L [facility] Monocytes/100 leukocytes in Blood by Automated count 34.8 % 3.0 - 8.0 H [facility] Eosinophils/100 leukocytes in Blood by Automated count 0.9 % 0.0 - 7.0 [facility] Basophils/100 leukocytes in Blood by Automated count 0.2 % 0.0 - 2.0 [facility] %IG 2.2 % 0.0 - 0.0 [facility] %NRBC 0.0 % 0.0 - 0.0 [facility] al Neutrophils [#/volume] in Blood by Automated count 4.40 10^3/uL 2.00 - 6.90 [facility] Lymphocytes [#/volume] in Blood by Automated count 0.83 10^3/uL 0.60 - 3.40 [facility] Monocytes [#/volume] in Blood by Automated count 2.95 10^3/uL 0.00 - 0.90 H [facility] Eosinophils [#/volume] in Blood by Automated count 0.08 10^3/uL 0.00 - 0.70 [facility] Basophils [#/volume] in Blood by Automated count 0.02 10^3/uL 0.00 - 0.20 [facility] #IG 0.19 10^3/uL 0.00 - 0.10 H [facility] #NRBC 0.00 10^3/uL 0.00 - 0.00 [facility] MANUAL DIFF SEE BELOW [facility] Segmented neutrophils/100 leukocytes in Blood by Manual count 33 % 37 - 80 L [facility] BAND 13 % 0 - 5 [facility] %LYMPH 15 % 25 - 40 L [facility] %MONO 39 % 3 - 8 H [facility] RBC MORPH MORPH IS NORMAL [facility] ID Date Data Source [id number] 06/29/2020 03:55:00 PM EDT [facility] ([facility] Name Value Range Interpretation Code Description Data Susan rce(s) Supporting Document(s) Lipoprotein lipase [Enzymatic activity/volume] in Serum or Plasm a 16 U/L 13-78 [facility] ([facility] ) Amylase [Enzymatic activity/volume] in Serum or Plasma 22 U/L 31-110 Below low normal [facility] ([facility] ) ID Date Data Source [id number] 06/29/2020 03:55:00 PM EDT [facility] ([facility] Name Value Range Interpretation Code Description Data Susan rce(s) Supporting Document(s) Laboratory test finding (navigational concept) Laboratory test result [facility] ([facility] Laboratory test finding (navigational concept) 1079 U/mL 0-35 Above high normal [facility] ([facility] [employer] Electrochemiluminescen ce Immunoassay (ECLIA) Values obtained with different assay methods or kits cannot be used interchangeably. Results cannot be interpreted as absolute evidence of the presence or absence of malignant disease. PDF Laboratory test result [facility] ([facility] ID Date Data Source [id number] 06/18/2020 01:21:10 PM EDT [address] [address] Name: TRACE BEALDOB: 1940Sex: MOrdering Provider: ASHLEY Velásquez Prov: ASHLEY WARRENRefjodi Provider: Procedure Performed: CT ANGIOGRAM ABDOMEN PELVISExam Date: 06/18/2020 12:40MRN: [id number] Number: [id number] Class: OutpatientAccount #: [id number] for Exam: TAVR, pre intervention planningTechnique: The TAVR protocol was utilized. This consisted of contrast enhanced, retrospectively cardiac gated images through the heart followed by helically acquired, non-gated CTA imaging of the chest, abdomen.One or more of the following dose reduction techniqueswere utilized; automated exposure control, dose modulation, technique adjustment based on patient size and iterativereconstruction algorithms. Maximum Intensity Projections (MIP) and/or other multiplanar images images were created and reviewed.Comparison: NoneFindings: Liver: Mild heterogeneity of the liver. There are areas of low density in the left lobe adjacent to the falciform ligament probably related to fatty infiltration. There is a 1 cm nodule in the right lobe of uncertain etiology.Adrenal glands: Bilateral fullness in the adrenal glandsGallbladder: UnremarkableKidneys: Bilateral peripelvic cystsPancreas: Focal pancreatic lesion in the body the pancreas measuring on the order of 2 cm with poor enhancement of the pancreas. There is distention of the distal pancreatic duct.Adenopathy: 1 cm nonspecific lymph node in the region of the lesser sac just to the left curvature of the stomach image 219.Spleen: Nonspecific 7 mm nodule in the posterior aspect of the spleen. Mild splenomegaly.Bowel: UnremarkableBladder: UnremarkableAorta: Dense atherosclerotic vascular calcifications. No aneurysm. No dissectionCeliac artery: Widely patentSMA: Widely patentIMA: PatentRenal arteries: Widely patentIliac arteries: Widely patentRemote mild compression deformities of T11 and L2.Degenerative changes in the lumbar spine and hipsAscites: NoneIMPRESSION: 1. There is a 2 cm mass in the body the pancreas with obstruction of the distal pancreatic duct. This is concerning for pancreatic neoplasm. Dedicated pancreatic MRI may be helpful for further evaluation.2. Nonspecific enlarged lymph node adjacent to the pancreas in the region of the lesser sac measuring 1 cm.3. No aneurysm or dissection identified4. Bilateral enlargement of the adrenal glands. This is nonspecific. This could represent metastatic disease or adrenal hyperplasia 5. Small nonspecific nodule within the liver and spleen. Metastatic disease not excluded.These findings were communicated using the departmental critical or phone result protocolReport electronically signed by: VILMA LUNA On 06/18/2020 1:21 PMWorkstation ID: [id number] Name Value Range Interpretation Code Description Data Susan rce(s) Supporting Document(s) ID Date Data Source [id number] 06/18/2020 01:20:31 PM EDT [facility] INFORMATIONPatient [facility] Name Date of Age Gend*PT [id number] Trace Beal 1940 80 years M HOPPT Location Admission Date/Time Visit ID Attending [id number] 06/18/20 0535 --- Jeovany Fletcher MD([id number]) EPI ID CSN Admitting Provider [id number] Jeovany Fletcher MD([id number])Cardiovascular and Thoracic Surgery HISTORY & PHYSICAL06/18/2020hief Compliant / Reason for consultation:Trace Beal is a 80 years old gentleman presenting with fatigue, dyspnea, anddizziness. No chest pain, no episodes of passing out, no ankle swelling. HisEcho was significant for severe Aortic Stenosis and [facility] today showsnon-obstructive CAD.Past Medical History:Diagnosis Date Abnormal Doppler ultrasound of carotid artery 09/02/2019 [facility]. 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 Financial resource strain: Not on file Food insecurity: Worry: Not on file Inability: Not on file Transportation needs: Medical: Not on file Non-medical: Not on fileTobacco Use Smoking status: Former Smoker Packs/day: 1.00 Years: 25.00 Pack years: 25.00 Types: Cigarettes Last attempt to quit: 1970 Years since quittin.3 Smokeless tobacco: Never UsedSubstance and Sexual Activity Alcohol use: Yes Frequency: 2-3 times a week Drinks per session: 1 or 2 Binge frequency: Never Comment: summer time Drug use: Never Sexual activity: Not on fileLifestyle Physical activity: Days per week: Not on file Minutes per session: Not on file Stress: Not on fileRelationships Social connections: Talks on phone: Not on file Gets together: Not on file Attends pentecostalism service: Not on file Active member of club or organization: Not on file Attends meetings of clubs or organizations: Not on file Relationship status: Not on file Intimate partner violence: Fear of current or ex partner: Not on file Emotionally abused: Not on file Physically abused: Not on file Forced sexual activity: Not on fileOther Topics Concern Not on fileSocial History Narrative Not on fileAllergies:Patient has no known drug allergies.Medications:Current Facility-Administered Medications: heparin (porcine) injection, , , PRNJeovany MD, 5,000 Units at06/18/20927 iopamidol (ISOVUE-370) 76 %, , , PRJeovany Curtis MD, 40 mL at lidocaine 1 % injection, , , Jeovany WHALEN MD, 5 mL at 06/18/20925 midazolam (VERSED) injection, , , Jeovany WHALEN MD, 1 mg at normal saline flush 0.9 % injection 3 mL, 3 mL, Intravenous, Q8H Shashank SHAH MD normal saline flush 0.9 % injection 3 mL, 3 mL, Intravenous, Q8H Shashank SHAH MD normal saline flush 0.9 % injection 3 mL, 3 mL, Intravenous, Per Protocol,Jeovany Fletcher MD sodium chloride 0.9% (NS) infusion, 100 mL/hr, Intravenous, Continuous, MD Shashank, Last Rate: 100 mL/hr at 06/18/20 0641, 100 mL/hr at 06/18/20 06 sodium chloride 0.9% (NS) infusion, , Intravenous, Continuous, Jen Pack MD verapamil (ISOPTIN) injection, , , PRN, Jeovany Fletcher MD, 5 mg at [id number] of SystemsReview of Systems - History obtained from the desean entGeneral ROS: positive for - fatigueRespiratory ROS: positive for - shortness of breathCardiovascular ROS: positive for - dyspnea on exertionObjective:Physicial Exam:Vitals: 06/18/20 1304BP: 121/73Pulse: 69Resp:Temp:SpO2: 96%Cardio: Normal rate/rhythmRespiratory: Normal respiratory effortNeuro: Grossly NormalPsych: Alert/oriented, Normal affectPREVIOUS WEIGHTS:Wt Readings from Last 10 Encounters:06/18/20 63.4 kg (139 lb 12.4 oz)06/02/20 68.4 kg (150 lb 12.8 oz)12/10/19 67.1 kg (148 lb)12/09/19 67.2 kg (148 lb 3.2 oz)03/22/19 68 kg (150 lb)Lab ResultsComponent Value Date WBC 8.80 06/02/2020 HGB 14.70 06/02/2020 HCT 42.50 06/02/2020 MCV 99.00 (H) 06/02/2020ab ResultsComponent Value Date NA 140.0 06/02/2020 K 4.1 06/02/2020 CL 102.0 06/02/2020ab ResultsComponent Value Date BUN 16.0 06/02/2020ab ResultsComponent Value Date CREATININE 0.78 06/02/2020IOBRIEFIntake/Output Summary (Last 24 hours) at 06/18/2020 1315Last data filed at 06/18/2020 0946Gross per 24 hourIntake 150 mlOutput Net 150 mlRADIOLOGY RESULTS:LATEST RADIOLOGY RESULTS:Ct Angiogram ChestResult Date: 06/18/2020t. [place] [address] Patient Name: TRACE DOVER : 1940 Sex: M Ordering Provider: SAHLEY Velásquez Prov: ASHLEY WARREN Referring Provider: ProcedurePerformed: CT ANGIOGRAM CHEST Exam Date: 06/18/2020 12:40 Number: [id number] Patient Class: Outpatient for Exam: TAVR, pre intervention planning Technique: The TAVR protocolwas utilized. This consisted of contrast enhanced, retrospectively cardiacgated images through the heart followed by helically acquired, non-gated CTAimaging of the chest, abdomen. One or more of the following dose reductiontechniques were utilized; automated exposure control, dose modulation, techniqueadjustment based on patient size and iterative reconstruction algorithms.Maximum Intensity Projections (MIP) and/or other multiplanar images images werecreated and reviewed. Comparison: None FINDINGS: Pulmonary arteries: Mildlyenlarged which may relate to pulmonary arterial hypertension. No pulmonaryemboli identified Thoracic aorta: Unremarkable. No aneurysm or dissection.Dense aortic valvular calcifications. HEART: Dense mitral calcifications. Densecoronary arterial calcifications. Adenopathy: None Esophagus: UnremarkableLUNGS: Mild emphysematous change.. No pulmonary nodules or infiltratesidentified Pleura: Unremarkable. No effusions. CHEST WALL: UnremarkableIMPRESSION: 1. No aneurysm identified. 2. Chronic obstructive pulmonarydisease 3. TAVR measurements will be made separately Report electronicallysigned by: VILMA LUNA On 06/18/2020 12:57 PM Workstation ID: [id number] CatheterizationResult Date: [id number]-ces man with severe symptomatic aortic stenosis. 1. Severe aorticstenosis with a mean gradient of 51. 2. Normal left ventricular systolicfunction. 3. Minimal nonobstructive coronary artery disease. 4. Normalpulmonary artery pressure and low filling pressures. 5. Right radial access.The patient will complete his TAVR work-up during this admission. Nocomplications, estimated blood loss minimal.Us Carotid Doppler BilateralResult Date: 06/18/2020t. [place] [address] Patient Name: TRACE DOVER : 1940 Sex: M Ordering Provider: ASHLEY Velásquez Prov: ASHLEY WARREN Referring Provider: ProcedurePerformed: US CAROTID BILATERAL Exam Date: 06/18/2020 11:51 Number: [id number] Patient Class: Outpatient for Exam: TAVR protocol Technique: Duplex sonography was performed.Comparison: None Findings: The right and left carotid systems were examined byDoppler sonography. Carotid stenosis measurements were performed using theNASCET method. RIGHT CAROTID SYSTEM: Common Systolic Velocity 116 cm/sEnd-Diastolic Velocity 21 cm/s Internal Systolic Velocity 108 cm/sEnd-Diastolic Velocity 28 cm/s External Systolic Velocity 145cm/sEnd-Diastolic Velocity 12 cm/s Vertebral Artery 58 cm/s Antegrade flowICA/CCA Systolic Ratio = 0.9 Internal Carotid Artery Stenosis: Less than 50%LEFT CAROTID SYSTEM: Common Systolic Velocity 105 cm/s End-DiastolicVelocity 25 cm/s Internal Systolic Velocity 110 cm/s End- Diastolic Hncvunku85 cm/s External Systolic Velocity 102 cm/s End-Diastolic Velocity 11 cm/sVertebral Artery 60 cm/s Antegrade flow ICA/CCA Systolic Ratio = 1.1Internal Carotid Artery Stenosis: Less than 50%IMPRESSION: No hemodynamically significant stenosis identified Reportelectronically signed by: VILMA LUNA On 06/18/2020 11:57 AM Workstation ID:[id number] Transthoracic (TTE)Order# [id number] physician: Zainab Coronado MD Ordering physician: LORENZA Stinsontudy date: 12/10/19Patient InformationPatient NameRuTrace wheatley ([id number]) SexMale DO1940Reason for ExamDx: Nonrheumatic aortic valve stenosis [I35.0 (ICD-10-CM)]Interpretation SummaryThe study is of fair technical quality with limited visualization. Patient isin sinus rhythm. Normal LV size with mild left ventricular hypertrophy and normal LV systolicfunction. Grade 1 diastolic dysfunction. Poorly visualized aortic valve thatis heavily sclerotic with severe stenosis (mean gradient 51 mmHg, calculated AVA0.9 cm , dimensionless index 0.2) and trivial insufficiency. No additionalsignificant valvular disease. Normal central venous pressure. Unable toestimate pulmonary artery pressure. I talked to the patient about results of the test. At this point we will awaitresults of BNP but most likely will proceed with coronary angiography andtentative plans for AVR.Echocardiographic FindingsLeft Ventricle The left ventricular cavity is normal. Normal (55-65%) ejectionfraction. Grade I (mild) left ventricular diastolic dysfunction consistent withimpaired relaxation. mild concentric left ventricular hypertrophy observed.Right Ventricle The right ventricle is normal. RV from parasternal LAX view: 2.7cmLeft Atrium The left atrium is normal in size.Right Atrium The right atrium is normal in size.IVC/SVC Inferior vena cava is normal with greater than 50% collapse. RA pressure0-5mmHg IVC diameter <17 mm and decreases <50% during inspiration.Mitral Valve The mitral valve is normal in structure. There is mild mitralannular calcification. No stenosis. No regurgitation.Tricuspid Valve The tricuspid valve is normal. No stenosis. No regurgitation.Aortic Valve Poorly visualized The aortic valve is moderately sclerotic withreduced excursion. Severe stenosis. Trace aortic insufficiency is present.Pulmonic Valve The pulmonic valve was not well visualized.Ascending Aorta Normal aortic root, size and contour.Pericardium Pericardium is normal.Study DetailsStudy Details A complete 2D echocardiogram with color flow and spectral Dopplerwas performed. During the study the all views view were captured. Overall thestudy quality was adequate. The study had technical difficulties. The study wasdifficult due to patient's body habitus.Assessment / Impression / Plan:Trace Beal presents with severe symptomatic Valvular Aortic Stenosis. NYHAClass III. I've gone over this diagnosis with him. We've discussed treatmentoptions including surgical Aortic Valve Replacement and Transcatheter AorticValve Replacement (TAVR).We've gone over TAVR procedure, including risks of bleeding, infection, stroke,kidney failure, lung complications including pneumonia and prolonged supportwith breathing machine, possibility of needing a pacemaker and possibility ofdying. He understands this and would like to go ahead with TAVR procedure. Thiscase will be reviewed at the TAVR/Structural Heart Conference.This medical record reflects the history of present illness as obtained bymyself in discussion with the patient.Jeffy Boyd MD [facility] FACSCardiovascular Thoracic Surgery06/18/2020, 1:19 PM Name Value Range Interpretation Code Description Data Susan rce(s) Supporting Document(s) ID Date Data Source [id number] 06/18/2020 12:57:04 PM EDT [address] [address]Yyzxfll Name: TRACE BEALDOB: 1940Sex: MOrdering Provider: ASHLEY MATOSuthguy Prov: ASHLEY PINAETTReferring Provider: Procedure Performed: CT ANGIOGRAM CHESTExam Date: 06/18/2020 12:40MRN: [id number] Number: [id number] Class: OutpatientAccount #: [id number] for Exam: TAVR, pre intervention planningTechnique: The TAVR protocol was utilized. This consisted of contrast enhanced, retrospectively cardiac gated images through the heart followed by helically acquired, non-gated CTA imaging of the chest, abdomen.One or more of the following dose reduction techniqueswere utilized; automated exposure control, dose modulation, technique adjustment based on patient size and iterativereconstruction algorithms. Maximum Intensity Projections (MIP) and/or other multiplanar images images were created and reviewed.Comparison: NoneFINDINGS:Pulmonary arteries: Mildly enlarged which may relate to pulmonary arterial hypertension. No pulmonary emboli identifiedThoracic aorta: Unremarkable. No aneurysm or dissection. Dense aortic valvular calcifications.HEART: Dense mitral calcifications. Dense coronary arterial calcifications.Adenopathy: NoneEsophagus: UnremarkableLUNGS: Mild emphysematous change.. No pulmonary nodules or infiltrates identifiedPleura: Unremarkable. No effusions.CHEST WALL: Unremarkable IMPRESSION: 1. No aneurysm identified.2. Chronic obstructive pulmonary disease3. TAVR measurements will be made separatelyReport electronically signed by: VILMA LUNA On 06/18/2020 12:57 PMWorkstation ID: [id number] Name Value Range Interpretation Code Description Data Susan rce(s) Supporting Document(s) ID Date Data Source [id number] 06/18/2020 11:57:50 AM EDT [address], [place] [address]Vimvqra Name: TRACE BEALDOB: 1940Sex: MOrdering Provider: ASHLEY Velásquez Prov: ASHLEY WARRENReferrbeulah Provider: Procedure Performed: US CAROTID BILATERALExam Date: 06/18/2020 11:51MRN: [id number] Number: [id number] Class: OutpatientAccount #: [id number] for Exam: TAVR protocolTechnique: Duplex sonography was performed.Comparison: NoneFindings: The right and left carotid systems were examined by Doppler sonography. Carotid stenosis measurements were performed using the NASCET method.RIGHT CAROTID SYSTEM:Common Systolic Velocity 116 cm/s End-Diastolic Velocity 21 cm/sInternal Systolic Velocity 108 cm/s End-Diastolic Velocity 28 cm/sExternal Systolic Velocity 145cm/s End-Diastolic Velocity 12 cm/sVertebral Artery 58 cm/s Antegrade flowICA/CCA Systolic Ratio = 0.9 Internal Carotid Artery Stenosis: Less than 50%LEFT CAROTID SYSTEM:Common Systolic Velocity 105 cm/s End-Diastolic Velocity 25 cm/sInternal Systolic Velocity 110 cm/s End-Diastolic Velocity 21 cm/sExternal Systolic Velocity 102 cm/s End-Diastolic Velocity 11 cm/sVertebral Artery 60 cm/s Antegra de flowICA/CCA Systolic Ratio = 1.1 Internal Carotid Artery Stenosis: Less than 50%IMPRESSION: No hemodynamically significant stenosis identifiedReport electronically signed by: VILMA LUNA On 06/18/2020 11:57 AMWorkstation ID: [id number] Name Value Range Interpretation Code Description Data Susan rce(s) Supporting Document(s) ID Date Data Source [id number] 06/18/2020 10:02:06 AM EDT [facility] Name Value Range Interpretation Code Description Data Susan rce(s) Supporting Document(s) &PDF [facility] XBPXIl0tXcFMSsIi99/IWRyySGPqh6EvMEstRSr8JDpcVWMmE7AbgMnaMJLBEZtIPMjZCOfMFvCXXO6l oRX [file] AgICAgICAgICAgICAgICAgICAgICAgICAgICAgICAg ICAgICAgICAgICAgICAgICAgICAgICAgICAgICAgICAgICAgICAgICAgICAgICAgICAgDQogICAgICAg ICAgICAgICAgICAgICAgICAgICAgICAgICAgICAgICAgICAgICAgICAgICAgICAgICAgICAgICAgICAg ICAgICAgICAgICAgICAgICAgICAgICAgICAgICAgIC AgDQogICAgICAgICAgICAgICAgICAgICAgICAgICAgICAgICAgICAgICAgICAgICAgICAgICAgICAgIC AgICAgICAgICAgICAgICAgICAgICAgICAgICAgICAgICAgICAgICAgICAgDQogICAgICAgICAgICAgIC AgICAgICAgICAgICAgICAgICAgICAgICAgICAgICAg ICAgICAgICAgICAgICAgICAgICAgICAgICAgICAgICAgICAgICAgICAgICAgICAgICAgICAgDQogICAg ICAgICAgICAgICAgICAgICAgICAgICAgICAgICAgICAgICAgICAgICAgICAgICAgICAgICAgICAgICAg ICAgICAgICAgICAgICAgICAgICAgICAgICAgICAgIC AgICAgDQogICAgICAgICAgICAgICAgICAgICAgICAgICAgICAgICAgICAgICAgICAgICAgICAgICAgIC AgICAgICAgICAgICAgICAgICAgICAgICAgICAgICAgICAgICAgICAgICAgICAgDQogICAgICAgICAgIC AgICAgICAgICAgICAgICAgICAgICAgICAgICAgICAg ICAgICAgICAgICAgICAgICAgICAgICAgICAgICAgICAgICAgICAgICAgICAgICAgICAgICAgICAgDQog ICAgICAgICAgICAgICAgICAgICAgICAgICAgICAgICAgICAgICAgICAgICAgICAgICAgICAgICAgICAg ICAgICAgICAgICAgICAgICAgICAgICAgICAgICAgIC AgICAgICAgDQogICAgICAgICAgICAgICAgICAgICAgICAgICAgICAgICAgICAgICAgICAgICAgICAgIC AgICAgICAgICAgICAgICAgICAgICAgICAgICAgICAgICAgICAgICAgICAgICAgICAgDQogICAgICAgIC AgICAgICAgICAgICAgICAgICAgICAgICAgICAgICAg ICAgICAgICAgICAgICAgICAgICAgICAgICAgICAgICAgICAgICAgICAgICAgICAgICAgICAgICAgICAg LAd0G7wcIJGwVZLmYP6vNIy2Pr2+ACsRZkCfQNK5cjOmlF4CGA0ef5ChBNpnNPPdv7ClYLq3MZ6WZEWk OJgmPK1KCXzvnh2BEXRbTIMtwMMWl2lnKmXsCMJ2CC FvIzwiPA8MFQShL0tdefCeCEPdYHWYKYmhOTCGACosIESMIA9XFbWsJ8UuoO85ZCXLSi2+DQplbmRvYm zRHzS1VBFgs0GvHXg5MS8DVMMiZqina2TcZoPsMXPEUTknCZ6BMIL1QYH5QMGpLy7AAPPjL522niAmMI 0ZLh1GEsYsNL4ycn8INlVgCYPtJzyBNjv5TUipFH7A bBKeRJgKtRWuNN18yxiFRkZoL1Utg1GyBlG3HRBzGiDtRQjtLMZaSPCfrfOltSRsASwsRZ2LHLAkoyKb MjQgMCBSDQo+Zr3YZK4sj2CjBYdyFfNbQW1ueq9QEDgDDwZjU6D8wGJrG4I8SQidLe7JRRYeFEDqUqPj PKOQISpsQR4NBK9vblR8VU6BcKIlTBOdQJXsfIUpKF a8M14uwMLcPVjzXJ7SSVO+Sigifredo+Dm8PVKZfBBWdRBBzTjAkZVBXGvRaS3VkQ1TMy3WaS0EkRF49pTaydq HvIHgoQU8ZNI2kUCToSEOCUI0VkPEkfD6ipqAuWXDiWKCSYpQdV62kyZQoORLyZUJgWQSaGg0EVJPtR8 VdkuRwqQfxwjWyTFVpYFHPGE7AWDwdkpRdcPOyzXzr OV99aAkgKQ7ZFx8JSsCpFB1jkr8NyNWyAv2IXRIaBm0XYIIyJSGfSIQsULA3VGSuRtXzRHsqQRXsAFLn HYW8MPIoUVWrOX5ZEvHjRUGuHSBdWtGvAAZfOMFvkb4FEXPdEUX9LwD0XBMuNXKyYVHjRNkwKIEoBKXw GBddFMOkOLFsCI1YJfWbFHBbISG6YdHxSYPoGJWjuh 0CKVNyUSUjXpYxGTDnHYKdRIMvFApqPYOaPOD9FOq2TMDaLNYcNS5RLvRfRKShDCE8FHViXDEzDIDiah 3EOWCaOKMzIxJ5MAXyFESkAAGlFSkzWNLwZIH5Fbd7GRVdRAItPN4LFpKeRVOgXRliMRpaBXXbJUNfuw 9VSSJnGAWqTkP1FrJeROLbJNIhYIvhPLXrULP1NfM0 TTXwQQMuMS6RQiBpUOIeCNp6BEmaSAXdATDyqo9DSQMvGRBuSPg7YOFrZCQoHUYtJWzsFGOyUHO8WXa7 IPQcIAUuLL6WOwFwUCAqIFV3PRNyRYSbZSRlzi0DJGFxSIQqJFN1XZRfKAHyVIJjXKcbTBCyHWV9CxP5 TAMqXQYdRB3MFsYoZTLcMxJrIRMqNYLoRSUqof6SXT QlGYXhGiO7CPIhUQQuKYEkVMsuOOGcUSG2DcXqCWOmMCVuGT9JHuJmPNRiIRZ3WjdcFUPvPUJdqy0EYM EiKFL8AzL5AGLnBZCeIOUlCGafNPZlKKP8HdI5MLIiNMRlRK5RJxMsPXRtRWoeMMkqIKQiKWYabt7GdH TarKiilx2KDIgZRl8KqKzuLXM9XAoqZo2wwTTlZzHd JCGGJb7RxaMlHKSeZMTTYWruHLQaVPV6YKDiEaX4KOL7K1JiDAUvDbY2TbEpL4DgXzJzKsYbCpF5Ypv1 NKRgWSGzWRJhG0XcESE6NfAbUOAeSdYfJMSmWSU+EW1bGPt+Ut3Sc4GvzbT9jxItXMj1VcJ5UJ9PVBKM T0YNCg== ID Date Data Source [id number] 06/18/2020 09:00:48 AM EDT [facility] Name Value Range Interpretation Code Description Data Susan rce(s) Supporting Document(s) EKG 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/usYEd [file] MwMDYgMDAwMDAgbiAKMDAwMDAwMTYwOSAwMDAwMCBu SSiyZDRuBYIcUyN4HURwYBBxVG0dOwUbYOSiGZA0JNTfFLKhHTObfjSRDEHjGDHjTBUuPBF5TTFlKVMl GXw2xtZibEOmZdf4Vg7WbFkzPEJ0Cy7VggQsMLBxTKFWWf3Bo600DCImPEQBIzt+PgpzdGFydHhyZWYK ZPE7HEhGKQVYY1T= ID Date Data Source [id number] 06/13/2020 09:35:00 AM EDT [facility] Name Value Range Interpretation Code Description Data Susan rce(s) Supporting Document(s) SARS-CoV-2 (COVID-19) RNA [Presence] in Respiratory specimen by DUSTIN with probe detection Not Detected [facility] This lab was ordered by [facility] and reported by [employer]. ID Date Data Source [id number] 02/24/2020 09:19:00 AM EST [facility] ([facility] Name Value Range Interpretation Code Description Data Susan rce(s) Supporting Document(s) Chol 167 mg/dL 0-200 [facility] ([facility] CHRONIC KIDNEY DISEASE STAGING PER NKF: MALE [...] DESIRABLE: <130 MG/DL <110 MG/DL BORDERLINE-HIGH RISK: 130- 159 MG/DL 110-129 MG/DL HIGH RISK: >160 MG/DL >130 MG/DL *CHILDREN AND ADOLESCENTS REPRESENTS INDIVIDUALA AGED 2-19 YEARS EXCLUSIVE. Cholesterol in HDL [Mass/volume] in Serum or Plasma 50 mg/dL 35-55 [facility] ([facility] CHRONIC KIDNEY DISEASE STAGING PER NKF: MALE [...] DESIRABLE: <130 MG/DL <110 MG/DL BORDERLINE-HIGH RISK: 130- 159 MG/DL 110-129 MG/DL HIGH RISK: >160 MG/DL >130 MG/DL *CHILDREN AND ADOLESCENTS REPRESENTS INDIVIDUALA AGED 2-19 YEARS EXCLUSIVE. Trig 84 mg/dL 35-200 [facility] (Count includes the [facility] CHRONIC KIDNEY DISEASE STAGING PER NKF: MALE [...] DESIRABLE: <130 MG/DL <110 MG/DL BORDERLINE-HIGH RISK: 130- 159 MG/DL 110-129 MG/DL HIGH RISK: >160 MG/DL >130 MG/DL *CHILDREN AND ADOLESCENTS REPRESENTS INDIVIDUALA AGED 2-19 YEARS EXCLUSIVE. Cho/HDL Ratio 3.3 CALC [facility] CHRONIC KIDNEY DISEASE STAGING PER NKF: MALE [...] DESIRABLE: <130 MG/DL <110 MG/DL BORDERLINE-HIGH RISK: 130- 159 MG/DL 110-129 MG/DL HIGH RISK: >160 MG/DL >130 MG/DL *CHILDREN AND ADOLESCENTS REPRESENTS INDIVIDUALA AGED 2-19 YEARS EXCLUSIVE. LDL_C 100 Calc 75-129 [facility] CHRONIC KIDNEY DISEASE STAGING PER NKF: MALE [...] DESIRABLE: <130 MG/DL <110 MG/DL BORDERLINE-HIGH RISK: 130- 159 MG/DL 110-129 MG/DL HIGH RISK: >160 MG/DL >130 MG/DL *CHILDREN AND ADOLESCENTS REPRESENTS INDIVIDUALA AGED 2-19 YEARS EXCLUSIVE. ID Date Data Source [id number] 02/24/2020 09:19:00 AM EST [facility] ([facility] Name Value Range Interpretation Code Description Data Susan rce(s) Supporting Document(s) BUN 16 mg/dL 8-23 [facility] (Count includes the [facility] CHRONIC KIDNEY DISEASE STAGING PER NKF: MALE [...] DESIRABLE: <130 MG/DL <110 MG/DL BORDERLINE-HIGH RISK: 130- 159 MG/DL 110-129 MG/DL HIGH RISK: >160 MG/DL >130 MG/DL *CHILDREN AND ADOLESCENTS REPRESENTS INDIVIDUALA AGED 2-19 YEARS EXCLUSIVE. Glu 133 mg/dL 70-110 Above high normal [facility] ([facility] CHRONIC KIDNEY DISEASE STAGING PER NKF: MALE [...] DESIRABLE: <130 MG/DL <110 MG/DL BORDERLINE-HIGH RISK: 130- 159 MG/DL 110-129 MG/DL HIGH RISK: >160 MG/DL >130 MG/DL *CHILDREN AND ADOLESCENTS REPRESENTS INDIVIDUALA AGED 2-19 YEARS EXCLUSIVE. Creat 0.8 mg/dL 0.7-1.2 [facility] ([facility] CHRONIC KIDNEY DISEASE STAGING PER NKF: MALE [...] DESIRABLE: <130 MG/DL <110 MG/DL BORDERLINE-HIGH RISK: 130- 159 MG/DL 110-129 MG/DL HIGH RISK: >160 MG/DL >130 MG/DL *CHILDREN AND ADOLESCENTS REPRESENTS INDIVIDUALA AGED 2-19 YEARS EXCLUSIVE. BUN/Creatinine Ratio 21.1 CALC [facility] ([facility] CHRONIC KIDNEY DISEASE STAGING PER NKF: MALE [...] DESIRABLE: <130 MG/DL <110 MG/DL BORDERLINE-HIGH RISK: 130- 159 MG/DL 110-129 MG/DL HIGH RISK: >160 MG/DL >130 MG/DL *CHILDREN AND ADOLESCENTS REPRESENTS INDIVIDUALA AGED 2-19 YEARS EXCLUSIVE. K 4.2 mmol/L 3.5-5.1 [facility] CHRONIC KIDNEY DISEASE STAGING PER NKF: MALE [...] DESIRABLE: <130 MG/DL <110 MG/DL BORDERLINE-HIGH RISK: 130- 159 MG/DL 110-129 MG/DL HIGH RISK: >160 MG/DL >130 MG/DL *CHILDREN AND ADOLESCENTS REPRESENTS INDIVIDUALA AGED 2-19 YEARS EXCLUSIVE. Na 135 mmol/L 136-145 Below low normal [facility] ( [facility] CHRONIC KIDNEY DISEASE STAGING PER NKF: MALE [...] DESIRABLE: <130 MG/DL <110 MG/DL BORDERLINE-HIGH RISK: 130- 159 MG/DL 110-129 MG/DL HIGH RISK: >160 MG/DL >130 MG/DL *CHILDREN AND ADOLESCENTS REPRESENTS INDIVIDUALA AGED 2-19 YEARS EXCLUSIVE. CL 98.9 mmol/L 98.0-107.0 [facility] CHRONIC KIDNEY DISEASE STAGING PER NKF: MALE [...] DESIRABLE: <130 MG/DL <110 MG/DL BORDERLINE-HIGH RISK: 130- 159 MG/DL 110-129 MG/DL HIGH RISK: >160 MG/DL >130 MG/DL *CHILDREN AND ADOLESCENTS REPRESENTS INDIVIDUALA AGED 2-19 YEARS EXCLUSIVE. CA 8.9 mg/dL 8.6-10.2 [facility] ([facility] CHRONIC KIDNEY DISEASE STAGING PER NKF: MALE [...] DESIRABLE: <130 MG/DL <110 MG/DL BORDERLINE-HIGH RISK: 130- 159 MG/DL 110-129 MG/DL HIGH RISK: >160 MG/DL >130 MG/DL *CHILDREN AND ADOLESCENTS REPRESENTS INDIVIDUALA AGED 2-19 YEARS EXCLUSIVE. Co2 22.2 mmol/L 22.0-29.0 [facility] ([facility] CHRONIC KIDNEY DISEASE STAGING PER NKF: MALE [...] DESIRABLE: <130 MG/DL <110 MG/DL BORDERLINE-HIGH RISK: 130- 159 MG/DL 110-129 MG/DL HIGH RISK: >160 MG/DL >130 MG/DL *CHILDREN AND ADOLESCENTS REPRESENTS INDIVIDUALA AGED 2-19 YEARS EXCLUSIVE. TP 6.1 g/dL 6.6-8.7 Below low normal [facility] ( [facility] CHRONIC KIDNEY DISEASE STAGING PER NKF: MALE [...] DESIRABLE: <130 MG/DL <110 MG/DL BORDERLINE-HIGH RISK: 130- 159 MG/DL 110-129 MG/DL HIGH RISK: >160 MG/DL >130 MG/DL *CHILDREN AND ADOLESCENTS REPRESENTS INDIVIDUALA AGED 2-19 YEARS EXCLUSIVE. Alb 4.8 g/dL 3.5-5.2 [facility] ([facility] CHRONIC KIDNEY DISEASE STAGING PER NKF: MALE [...] DESIRABLE: <130 MG/DL <110 MG/DL BORDERLINE-HIGH RISK: 130- 159 MG/DL 110-129 MG/DL HIGH RISK: >160 MG/DL >130 MG/DL *CHILDREN AND ADOLESCENTS REPRESENTS INDIVIDUALA AGED 2-19 YEARS EXCLUSIVE. Alp 60.7 U/L 40-129 [facility] ([facility] CHRONIC KIDNEY DISEASE STAGING PER NKF: MALE [...] DESIRABLE: <130 MG/DL <110 MG/DL BORDERLINE-HIGH RISK: 130- 159 MG/DL 110-129 MG/DL HIGH RISK: >160 MG/DL >130 MG/DL *CHILDREN AND ADOLESCENTS REPRESENTS INDIVIDUALA AGED 2-19 YEARS EXCLUSIVE. A/G Ratio 3.9 CALC [facility] ([facility] CHRONIC KIDNEY DISEASE STAGING PER NKF: MALE [...] DESIRABLE: <130 MG/DL <110 MG/DL BORDERLINE-HIGH RISK: 130- 159 MG/DL 110-129 MG/DL HIGH RISK: >160 MG/DL >130 MG/DL *CHILDREN AND ADOLESCENTS REPRESENTS INDIVIDUALA AGED 2-19 YEARS EXCLUSIVE. Globulin 1.3 CALC [facility] ([facility] CHRONIC KIDNEY DISEASE STAGING PER NKF: MALE [...] DESIRABLE: <130 MG/DL <110 MG/DL BORDERLINE-HIGH RISK: 130- 159 MG/DL 110-129 MG/DL HIGH RISK: >160 MG/DL >130 MG/DL *CHILDREN AND ADOLESCENTS REPRESENTS INDIVIDUALA AGED 2-19 YEARS EXCLUSIVE. Alt (SGPT) 10 U/L 0-41 [facility] CHRONIC KIDNEY DISEASE STAGING PER NKF: MALE [...] DESIRABLE: <130 MG/DL <110 MG/DL BORDERLINE-HIGH RISK: 130- 159 MG/DL 110-129 MG/DL HIGH RISK: >160 MG/DL >130 MG/DL *CHILDREN AND ADOLESCENTS REPRESENTS INDIVIDUALA AGED 2-19 YEARS EXCLUSIVE. Ast (Sgot) 14 U/L 0-40 [facility] CHRONIC KIDNEY DISEASE STAGING PER NKF: MALE [...] DESIRABLE: <130 MG/DL <110 MG/DL BORDERLINE-HIGH RISK: 130- 159 MG/DL 110-129 MG/DL HIGH RISK: >160 MG/DL >130 MG/DL *CHILDREN AND ADOLESCENTS REPRESENTS INDIVIDUALA AGED 2-19 YEARS EXCLUSIVE. Tbili 0.70 mg/dL 0.0-1.2 [facility] CHRONIC KIDNEY DISEASE STAGING PER NKF: MALE [...] DESIRABLE: <130 MG/DL <110 MG/DL BORDERLINE-HIGH RISK: 130- 159 MG/DL 110-129 MG/DL HIGH RISK: >160 MG/DL >130 MG/DL *CHILDREN AND ADOLESCENTS REPRESENTS INDIVIDUALA AGED 2-19 YEARS EXCLUSIVE. Osmolality-Calculated 273.7 CALC [facility] ([facility] CHRONIC KIDNEY DISEASE STAGING PER NKF: MALE [...] DESIRABLE: <130 MG/DL <110 MG/DL BORDERLINE-HIGH RISK: 130- 159 MG/DL 110-129 MG/DL HIGH RISK: >160 MG/DL >130 MG/DL *CHILDREN AND ADOLESCENTS REPRESENTS INDIVIDUALA AGED 2-19 YEARS EXCLUSIVE. Anion Gap 18 mmol/L [facility] ([facility] CHRONIC KIDNEY DISEASE STAGING PER NKF: MALE [...] DESIRABLE: <130 MG/DL <110 MG/DL BORDERLINE-HIGH RISK: 130- 159 MG/DL 110-129 MG/DL HIGH RISK: >160 MG/DL >130 MG/DL *CHILDREN AND ADOLESCENTS REPRESENTS INDIVIDUALA AGED 2-19 YEARS EXCLUSIVE. eGFR 98 # [facility] ( [facility] CHRONIC KIDNEY DISEASE STAGING PER NKF: MALE [...] DESIRABLE: <130 MG/DL <110 MG/DL BORDERLINE-HIGH RISK: 130- 159 MG/DL 110-129 MG/DL HIGH RISK: >160 MG/DL >130 MG/DL *CHILDREN AND ADOLESCENTS REPRESENTS INDIVIDUALA AGED 2-19 YEARS EXCLUSIVE. eGFR Non-Afr. Kyrgyz 84 # [facility] ([facility] CHRONIC KIDNEY DISEASE STAGING PER NKF: MALE [...] DESIRABLE: <130 MG/DL <110 MG/DL BORDERLINE-HIGH RISK: 130- 159 MG/DL 110-129 MG/DL HIGH RISK: >160 MG/DL >130 MG/DL *CHILDREN AND ADOLESCENTS REPRESENTS INDIVIDUALA AGED 2-19 YEARS EXCLUSIVE. Procedure Social History Code Duration Value Status Description Data Source(s ) Alcohol intake 12/30/2020 12:00:00 AM EDT Ex-drinker (finding) comp leted Ex- drinker (finding) [facility] Alcohol intake 12/16/2020 12:00:00 AM EDT Ex-drinker (finding) comp leted Ex- drinker (finding) [facility] Smoking 12/01/2020 06:46:50 AM EDT Ex-smoker (finding) complet ed Ex-smoker (finding) [facility] (Zach Carvalho MD [facility]) Smoking 11/29/2020 12:00:00 AM EDT Patient has never smoked co mpleted Patient has never smoked [facility] ([facility], [facility]) Alcohol intake 10/20/2020 12:00:00 AM EDT Ex-drinker (finding) comp leted Ex- drinker (finding) [facility] Alcohol intake 08/12/2020 12:00:00 AM EDT Ex-drinker (finding) comp leted Ex- drinker (finding) [facility] Alcohol intake 07/30/2020 12:00:00 AM EDT Ex-drinker (finding) comp leted Ex- drinker (finding) [facility] Alcohol intake 07/01/2020 12:00:00 AM EDT Ex-drinker (finding) comp leted Ex- drinker (finding) [facility] Alcohol intake 06/18/2020 12:00:00 AM EDT Yes completed [facility] Cigarette pack-years 06/18/2020 12:00:00 AM EDT UNK completed [facility] Cigarettes smoked current (pack per day) - Reported 06/19/19 12:00:00 AM EDT UNK completed [facility] Smoking 06/18/2020 12:00:00 AM EDT Former smoker completed Former smoker [facility] Alcohol intake 06/02/2020 12:00:00 AM EDT Yes completed [facility] Cigarette pack-years 06/02/2020 12:00:00 AM EDT UNK completed [facility] Cigarettes smoked current (pack per day) - Reported 06/03/19 12:00:00 AM EDT UNK completed [facility] Smoking 06/02/2020 12:00:00 AM EDT Former smoker completed Former smoker [facility] Tobacco use and exposure 12/09/2019 12:00:00 AM EDT Never used co mpleted Never used [facility] Cigarette pack-years 12/09/2019 12:00:00 AM EDT UNK completed [facility] Cigarettes smoked current (pack per day) - Reported 12/09/19 12:00:00 AM EDT UNK completed [facility] Smoking 12/09/2019 12:00:00 AM EDT Former smoker completed Former smoker [facility] Vital Signs ID Date Data Source UNK Name Value Range Interpretation Code Description Data Source(s) Body height 175.3 cm 175.3 cm [facility] Body weight 61.689 kg 61.689 kg [facility] Body mass index (BMI) [Ratio] 20.08 kg/m2 20.08 kg/m2 [facility] Systolic blood pressure 138 mm[Hg] 138 mm[Hg] [facility] Diastolic blood pressure 86 mm[Hg] 86 mm[Hg] [facility] Heart rate 85 /min 85 /min [facility] Body height 175.3 cm 175.3 cm [facility] Body weight 62.596 kg 62.596 kg [facility] Body mass index (BMI) [Ratio] 20.38 kg/m2 20.38 kg/m2 [facility] Oxygen saturation in Arterial blood by Pulse oximetry 94 % 94 % [facility] Body weight 137 [lb_av] 137 [lb_av] eCW1 ([facility]) Body weight 62.14 kg 62.14 kg eCW1 ([facility]) Body height [in_i] eCW1 ([facility]) Body mass index (BMI) [Ratio] 20.23 kg/m2 20.23 kg/m2 eCW1 ([facility], [facility]) Heart rate 68 /min 68 /min eCW1 ([facility]) Respiratory rate 18 /min 18 /min eCW1 ([facility]) Body temperature 96.9 [degF] 96.9 [degF] eCW1 ( [facility], [facility]) Systolic blood pressure 142 mm[Hg] 142 mm[Hg] e CW1 ([facility], [facility]) Diastolic blood pressure 78 mm[Hg] 78 mm[Hg] eCW1 ([facility], [facility]) Heart rate 88 /min 88 /min MEDENT ([facility], [facility]) Respiratory rate 20 /min 20 /min MEDENT ( [facility], [facility]) Oxygen saturation in Arterial blood by Pulse oximetry 98 % 98 % MEDENT ([facility], [facility]) Body temperature 97.1 [degF] 97.1 [degF] MEDENT ([facility], [facility]) Body weight 135.00 [lb_av] 135.00 [lb_av] MEDEN T ([facility], [facility]) Body height 69 [in_i] 69 [facility]_i] [facility] 5'9" Body mass index (BMI) [Ratio] 19.9 kg/m2 19.9 k g/m2 MEDENT ([facility], [facility]) Systolic blood pressure 156 mm[Hg] 156 mm[Hg] M EDENT ([facility], [facility]) Diastolic blood pressure 65 mm[Hg] 65 mm[Hg] MEDENT ([facility], [facility]) Systolic blood pressure 118 mm[Hg] 118 mm[Hg] M EDENT ([facility] Diastolic blood pressure 72 mm[Hg] 72 mm[Hg] MEDENT ([facility] Body temperature 98.1 [degF] 98.1 [degF] MEDENT ([facility] Heart rate 76 /min 76 /min MEDENT ([facility] Respiratory rate 12 /min 12 /min MEDENT ( [facility] Body height 68 [in_i] 68 [in_i] MEDENT ([facility] 5'8" Body weight 132.00 [lb_av] 132.00 [lb_av] MEDEN T ([facility] [place] body weight 154 [lb_av] 154 [lb_av] MEDEN T ([facility] Body mass index (BMI) [Ratio] 20.1 kg/m2 20.1 k g/m2 [facility] ([facility] Oxygen saturation in Arterial blood by Pulse oximetry 94 % 94 % [facility] ([facility] Body weight 133 [lb_av] 133 [lb_av] eCW1 ([facility]) Body weight 60.33 kg 60.33 kg W1 ([facility]) Body height [in_i] eCW1 ([facility]) Body mass index (BMI) [Ratio] 19.64 kg/m2 19.64 kg/m2 eCW1 ([facility], [facility]) Heart rate 94 /min 94 /min eCW1 ([facility]) Respiratory rate 16 /min 16 /min eCW1 ([facility]) Body temperature 97.9 [degF] 97.9 [degF] eCW1 ( [facility], [facility]) Systolic blood pressure 124 mm[Hg] 124 mm[Hg] e CW1 ([facility], [facility]) Diastolic blood pressure 72 mm[Hg] 72 mm[Hg] eCW1 ([facility], [facility]) Systolic blood pressure 136 mm[Hg] 136 mm[Hg] [facility] Diastolic blood pressure 76 mm[Hg] 76 mm[Hg] [facility] Heart rate 70 /min 70 /min [facility] Body temperature 36.11 Carson 36.11 Carson [facility] Respiratory rate 16 /min 16 /min [facility] Body height 172.7 cm 172.7 cm [facility] Body weight 60.782 kg 60.782 kg [facility] Body mass index (BMI) [Ratio] 20.37 kg/m2 20.37 kg/m2 [facility] Oxygen saturation in Arterial blood by Pulse oximetry 98 % 98 % [facility] Oxygen saturation in Arterial blood by Pulse oximetry 95 % 95 % [facility] Systolic blood pressure 148 mm[Hg] 148 mm[Hg] [facility] Diastolic blood pressure 65 mm[Hg] 65 mm[Hg] [facility] Heart rate 105 /min 105 /min [facility] Body temperature 36.72 Carson 36.72 Carson [facility] Respiratory rate 21 /min 21 /min [facility] Body weight 61.689 kg 61.689 kg [facility] Body mass index (BMI) [Ratio] 20.08 kg/m2 20.08 kg/m2 [facility] Body height 175.3 cm 175.3 cm [facility] Systolic blood pressure 123 mm[Hg] 123 mm[Hg] [facility] Oxygen saturation in Arterial blood by Pulse oximetry 97 % 97 % [facility] Diastolic blood pressure 76 mm[Hg] 76 mm[Hg] [facility] Heart rate 78 /min 78 /min [facility] Respiratory rate 18 /min 18 /min [facility] Body temperature 36.56 Carson 36.56 Carson [facility] Body height 175.3 cm 175.3 cm [facility] Body weight 65.772 kg 65.772 kg [facility] Body mass index (BMI) [Ratio] 21.41 kg/m2 21.41 kg/m2 [facility] Systolic blood pressure 134 mm[Hg] 134 mm[Hg] [facility] Diastolic blood pressure 74 mm[Hg] 74 mm[Hg] [facility] Heart rate 67 /min 67 /min [facility] Body height 175.3 cm 175.3 cm [facility] Body weight 64.411 kg 64.411 kg [facility] Body mass index (BMI) [Ratio] 20.97 kg/m2 20.97 kg/m2 [facility] Oxygen saturation in Arterial blood by Pulse oximetry 95 % 95 % [facility] [place] body weight 154 [lb_av] 154 [lb_av] MEDEN T ([facility] Body height 68 [in_i] 68 [in_i] MEDENT ([facility] 5'8" Body weight 140.00 [lb_av] 140.00 [lb_av] MEDEN T ([facility] Body mass index (BMI) [Ratio] 21.3 kg/m2 21.3 k g/m2 MEDENT ([facility] Oxygen saturation in Arterial blood by Pulse oximetry 95 % 95 % [facility] ([facility] Systolic blood pressure 120 mm[Hg] 120 mm[Hg] M EDENT ([facility] Diastolic blood pressure 78 mm[Hg] 78 mm[Hg] [facility] ([facility] Body temperature 97.9 [degF] 97.9 [degF] [facility] ([facility] Heart rate 50 /min 50 /min [facility] ([facility] Respiratory rate 14 /min 14 /min MEDENT ( [facility] Systolic blood pressure 150 mm[Hg] 150 mm[Hg] [facility] Body weight 66.225 kg 66.225 kg [facility] Body mass index (BMI) [Ratio] 22.20 kg/m2 22.20 kg/m2 [facility] Oxygen saturation in Arterial blood by Pulse oximetry 96 % 96 % [facility] Heart rate 72 /min 72 /min [facility] Body height 172.7 cm 172.7 cm [facility] Diastolic blood pressure 86 mm[Hg] 86 mm[Hg] [facility] Oxygen saturation in Arterial blood by Pulse oximetry 96 % 96 % MEDENT ([facility] Systolic blood pressure 124 mm[Hg] 124 mm[Hg] M EDENT ([facility] Diastolic blood pressure 80 mm[Hg] 80 mm[Hg] MEDENT ([facility] Body temperature 98.1 [degF] 98.1 [degF] MEDENT ([facility] Heart rate 70 /min 70 /min MEDENT ([facility] Respiratory rate 14 /min 14 /min MEDENT ( [facility] Body height 68 [in_i] 68 [in_i] MEDENT ([facility] 5'8" Body weight 144.00 [lb_av] 144.00 [lb_av] MEDEN T ([facility] [place] body weight 154 [lb_av] 154 [lb_av] MEDEN T ([facility] Body mass index (BMI) [Ratio] 21.9 kg/m2 21.9 k g/m2 [facility] ([facility] Heart rate 102 /min 102 /min [facility] Systolic blood pressure 125 mm[Hg] 125 mm[Hg] [facility] Diastolic blood pressure 75 mm[Hg] 75 mm[Hg] [facility] Body temperature 36.67 [place] 36.67 [place] [facility] Oxygen saturation in Arterial blood by Pulse oximetry 97 % 97 % [facility] Respiratory rate 16 /min 16 /min [facility] Body height 172.7 cm 172.7 cm [facility] Body weight 63.4 kg 63.4 kg [facility] Body mass index (BMI) [Ratio] 21.25 kg/m2 21.25 kg/m2 [facility] Systolic blood pressure 172 mm[Hg] 172 mm[Hg] [facility] Diastolic blood pressure 90 mm[Hg] 90 mm[Hg] [facility] Heart rate 74 /min 74 /min [facility] Body height 175.3 cm 175.3 cm [facility] Body weight 68.402 kg 68.402 kg [facility] Body mass index (BMI) [Ratio] 22.27 kg/m2 22.27 kg/m2 [facility] Oxygen saturation in Arterial blood by Pulse oximetry 97 % 97 % [facility] Systolic blood pressure 134 mm[Hg] 134 mm[Hg] M EDENT ([facility] Diastolic blood pressure 84 mm[Hg] 84 mm[Hg] [facility] ([facility] Body temperature 98.0 [degF] 98.0 [degF] [facility] ([facility] Heart rate 54 /min 54 /min [facility] ([facility] Respiratory rate 12 /min 12 /min [facility] ( [facility] Body height 68 [in_i] 68 [in_i] MEDENT ([facility] 5'8" Body weight 145.00 [lb_av] 145.00 [lb_av] MEDEN T ([facility] [place] body weight 154 [lb_av] 154 [lb_av] MEDEN T ([facility] Body mass index (BMI) [Ratio] 22.0 kg/m2 22.0 k g/m2 [facility] ([facility] Oxygen saturation in Arterial blood by Pulse oximetry 96 % 96 % [facility] ([facility] Body height 68 [in_i] 68 [in_i] MEDENT ([facility] 5'8" Body weight 146.00 [lb_av] 146.00 [lb_av] MEDEN T ([facility] Body temperature 97.8 [degF] 97.8 [degF] [facility] ([facility] Heart rate 76 /min 76 /min [facility] ([facility] Respiratory rate 12 /min 12 /min MED[facility] ( [facility] [place] body weight 154 [lb_av] 154 [lb_av] MEDEN T ([facility] Oxygen saturation in Arterial blood by Pulse oximetry 95 % 95 % MEDENT ([facility] Body mass index (BMI) [Ratio] 22.2 kg/m2 22.2 k g/m2 [facility] ([facility] Systolic blood pressure 138 mm[Hg] 138 mm[Hg] M EDENT ([facility] Diastolic blood pressure 84 mm[Hg] 84 mm[Hg] MEDENT ([facility] Respiratory rate 12 /min 12 /min [facility] ( [facility] Body mass index (BMI) [Ratio] 22.0 kg/m2 22.0 k g/m2 [facility] ([facility] Oxygen saturation in Arterial blood by Pulse oximetry 96 % 96 % [facility] ([facility] Systolic blood pressure 124 mm[Hg] 124 mm[Hg] M EDENT ([facility] Diastolic blood pressure 82 mm[Hg] 82 mm[Hg] MEDENT ([facility] Body height 68 [in_i] 68 [in_i] [facility] ([facility] 5'8" Body temperature 98.1 [degF] 98.1 [degF] MEDENT ([facility] Heart rate 70 /min 70 /min [facility] ([facility] Body weight 145.00 [lb_av] 145.00 [lb_av] MEDEN T ([facility] [place] body weight 154 [lb_av] 154 [lb_av] MEDEN T ([facility] Patient Treatment Plan of Care Planned Activity Planned Date Details Description Data Source (s) Bisacodyl 10 MG Rectal Suppository 10/22/2020 09:00:00 AM EDT [facility] POLYETHYLENE GLYCOL 3350 142 MG/ML Oral Solution 10/21/2020 07:00:0 0 AM EDT [facility] clopidogrel 75 MG Oral Tablet 10/20/2020 09:00:00 AM EDT [facility] Amoxicillin 500 MG Oral Capsule 10/20/2020 12:00:00 AM EDT [facility] ondansetron (ZOFRAN) injection 4 mg 10/19/2020 08:48:36 PM EDT [facility] 2 ML Metoclopramide 5 MG/ML Prefilled Syringe 10/19/2020 08:48:36 P M EDT [facility] 10 ML Atropine Sulfate 0.1 MG/ML Prefilled Syringe 10/19/2020 08 :48:35 PM EDT [facility] normal saline flush 0.9 % injection 3 mL 08/12/2020 02:00:00 PM EDT [facility] Magnesium Chloride 0.59028 MEQ/ML / Pota ssium Chloride 0.0497 MEQ/ML / Sodium Acetate 0.0163 MEQ/ML / Sodium Chloride 0.0899 MEQ/ML / Sodium gluconate 5.02 MG/ML Injectable Solution [Normosol-R] 08/12/2020 12:00:00 PM EDT [facility] Magnesium Chloride 0.26908 MEQ/ML / Pota ssium Chloride 0.0497 MEQ/ML / Sodium Acetate 0.0163 MEQ/ML / Sodium Chloride 0.0899 MEQ/ML / Sodium gluconate 5.02 MG/ML Injectable Solution [Normosol-R] 08/12/2020 12:00:00 PM EDT [facility] ondansetron (ZOFRAN) injection 4 mg 08/12/2020 11:03:54 AM EDT [facility] Hydralazine Hydrochloride 20 MG/ML Injectable Solution 08/12/2020 11:03:54 AM EDT [facility] Albuterol 0.83 MG/ML Inhalant Solution 08/12/2020 11:03:54 AM EDT [facility] Aspirin 81 MG Delayed Release Oral Tablet 06/02/2020 12:00:00 AM ED T [facility] 1 ML heparin sodium, porcine 1000 UNT/ML Injection [facility] Cephalexin 50 MG/ML Oral Suspension [facility] Prochlorperazine 10 MG Oral Tablet [facility] Ondansetron 8 MG Oral Tablet [facility] Iodine, Kelp, (KELP PO) [facility] Flaxseed, Linseed, (FLAX PO) [facility] James, Zingiber officinalis, (JAMES PO) [facility]
[2021-01-23 17:15] VITALS: BP 144/76
--- OUTSIDE RECORDS SUMMARY | 2021-01-23 17:43 | CCD ---
Author Author [facility] Organization [facility] Address Unknown Phone Unavailable Care Team Providers Care Guidance Consultant Name Role Phone Jason Zaragoza MD Unavailable [...] Unavailable MITCH, H CHERYL MD Unavailable Unavailable MITHC, H CHERYL MD Unavailable Unavailable MITCH, H [...] Mare Serrano MD, FACS Unavailable Unavailable Mcmullen Caravlho, Mare Serrano MD, FACS Unavailable Unavailable Mcmullen Carvalho, Mare Serrano MD, FACS Unavailable Unavailable Fons, M Shaniqua GAS WELDING MACHINE OPERATOR Unavailable Unavailable Fons, M Shaniqua GAS WELDING MACHINE OPERATOR Unavailable Unavailable Fons, M Shaniqua GAS WELDING MACHINE OPERATOR Unavailable Unavailable Fons, M Shaniqua GAS WELDING MACHINE OPERATOR Unavailable Unavailable Fons, M Shaniqua GAS WELDING MACHINE OPERATOR Unavailable Unavailable Fons, M Shaniqua GAS WELDING MACHINE OPERATOR Unavailable Unavailable Fons, M Shaniqua GAS WELDING MACHINE OPERATOR Unavailable Unavailable Fons, M Shaniqua GAS WELDING MACHINE OPERATOR Unavailable Unavailable Fons, M Shaniqua GAS WELDING MACHINE OPERATOR Unavailable Unavailable Fons, M Shaniqua GAS WELDING MACHINE OPERATOR Unavailable Unavailable Fons, M Shaniqua GAS WELDING MACHINE OPERATOR Unavailable Unavailable Fons, M Shaniqua GAS WELDING MACHINE OPERATOR Unavailable Unavailable Fons, M Shaniqua GAS WELDING MACHINE OPERATOR Unavailable Unavailable Fons, M Shaniqua GAS WELDING MACHINE OPERATOR Unavailable Unavailable Fons, M Shaniqua GAS WELDING MACHINE OPERATOR Unavailable Unavailable Fons, M Shaniqua GAS WELDING MACHINE OPERATOR Unavailable Unavailable Fons, M Shaniqua GAS WELDING MACHINE OPERATOR Unavailable Unavailable Fons, M Shaniqua GAS WELDING MACHINE OPERATOR Unavailable Unavailable Fons, M Shaniqua GAS WELDING MACHINE OPERATOR Unavailable Unavailable Fons, M Shaniqua GAS WELDING MACHINE OPERATOR Unavailable Unavailable Fons, M Shaniqua GAS WELDING MACHINE OPERATOR Unavailable Unavailable Fons, M Shaniqua GAS WELDING MACHINE OPERATOR Unavailable Unavailable Fons, M Shaniqua GAS WELDING MACHINE OPERATOR Unavailable Unavailable Fons, M Shaniqua GAS WELDING MACHINE OPERATOR Unavailable Unavailable Fons, M Shaniqua GAS WELDING MACHINE OPERATOR Unavailable Unavailable Fons, M Shaniqua GAS WELDING MACHINE OPERATOR Unavailable Unavailable Fons, M Shaniqua GAS WELDING MACHINE OPERATOR Unavailable Unavailable Fons, M Shaniqua GAS WELDING MACHINE OPERATOR Unavailable Unavailable Fons, M Shaniqua GAS WELDING MACHINE OPERATOR Unavailable Unavailable Fons, M Shaniqua GAS WELDING MACHINE OPERATOR Unavailable Unavailable Fons, M Shaniqua GAS WELDING MACHINE OPERATOR Unavailable Unavailable Fons, M Shaniqua GAS WELDING MACHINE OPERATOR Unavailable Unavailable Fons, M Shaniqua GAS WELDING MACHINE OPERATOR Unavailable Unavailable Fons, M Shaniqua GAS WELDING MACHINE OPERATOR Unavailable Unavailable Fons, M Shaniqua GAS WELDING MACHINE OPERATOR Unavailable Unavailable Fons, M Shaniqua GAS WELDING MACHINE OPERATOR Unavailable Unavailable Fons, M Shaniqua GAS WELDING MACHINE OPERATOR Unavailable Unavailable Fons, M Shaniqua GAS WELDING MACHINE OPERATOR Unavailable Unavailable Fons, M Shaniqua GAS WELDING MACHINE OPERATOR Unavailable Unavailable Fons, M Shaniqua GAS WELDING MACHINE OPERATOR Unavailable Unavailable Fons, M Shaniqua GAS WELDING MACHINE OPERATOR Unavailable Unavailable Fons, M Shaniqua GAS WELDING MACHINE OPERATOR Unavailable Unavailable Fons, M Shaniqua GAS WELDING MACHINE OPERATOR Unavailable Unavailable Fons, M Shaniqua GAS WELDING MACHINE OPERATOR Unavailable Unavailable Fons, M Shaniqua GAS WELDING MACHINE OPERATOR Unavailable Unavailable Fons, M Shaniqua GAS WELDING MACHINE OPERATOR Unavailable Unavailable Fons, M Shaniqua GAS WELDING MACHINE OPERATOR Unavailable Unavailable Fons, M Shaniqua GAS WELDING MACHINE OPERATOR Unavailable Unavailable Fons, M Shaniqua GAS WELDING MACHINE OPERATOR Unavailable Unavailable Fons, M Shaniqua GAS WELDING MACHINE OPERATOR Unavailable Unavailable Fons, M Shaniqua GAS WELDING MACHINE OPERATOR Unavailable Unavailable Fons, M Shaniqua GAS WELDING MACHINE OPERATOR Unavailable Unavailable Fons, M Shaniqua GAS WELDING MACHINE OPERATOR Unavailable Unavailable RING, K JOVANY PA Unavailable [...] Unavailable Unavailable Alisia MEYER MD Unavailable Unavailable Aliisa MEYER MD Unavailable Unavailable Alisia MEYER MD Unavailable Unavailable Alisia MEYER MD Unavailable Unavailable Alisia MEYER MD Unavailable Unavailable MITCH, H CHERYL SERRANO Unavailable Unavailable MITCHAlisia MD Unavailable Unavailable MITCHAlisia MD Unavailable Unavailable MITCH H CHERYL SERRANO Unavailable Unavailable MITCHAlisia MD Unavailable Unavailable MITCH H CHERYL SERRANO [...] Unavailable Unavailable Alisia MEYER MD Unavailable Unavailable Bibb, V NATALY PA-C Unavailable Unavailable Stephie, V NATALY PA-C Unavailable Unavailable Bibb, V NATALY PA-C Unavailable Unavailable Stephie, V NATALY PA-C Unavailable Unavailable Bibb, V NATALY PA-C Unavailable Unavailable Bibb, V NATALY PA-C Unavailable Unavailable Bibb, V NATALY PA-C Unavailable Unavailable Stephie, V NATALY PA-C Unavailable Unavailable Bibb, V NATALY PA-C Unavailable Unavailable Stephie, V NATALY PA-C Unavailable Unavailable Bibb, V NATALY PA-C Unavailable Unavailable Stephie, V NATALY PA-C Unavailable Unavailable Bibb, V NATALY PA-C Unavailable Unavailable Bibb, V NATALY PA-C Unavailable Unavailable Zainab Coronado [...] is protected by Article 27-F of the [facility] Public Health law. If you continue you may have access to information: Regarding HIV / AIDS; Provided by facilities licensed or operated by the [facility] Office of Mental Health; or Provided by the [facility] Office for People With Developmental Disabilities. If such information is present, then the following [facility] mandated warning applies: This information has [...] law may result in a fine or care home sentence or both. A general authorization for the release of medical or other information is NOT sufficient authorization for further disc losure. Family History Family Member Name Family Member Gender Family Member Status Date o f Status Description Data Source(s) Unknown Female Problem [facility] ([facility]) Unknown Female Problem [facility] ([facility]) Encounters Encounter Providers Location Date Indications Data Source(s ) Outpatient Attender: Shaniqua COOPERANGIE-SJP.ANGIE 12/30/2020 08:53:21 AM EDT [facility] Outpatient Referrer: Shaniqua COOPERCT-SJP.SYR 09:30:18 AM EDT - 12/22/2020 10:14:29 AM EDT [facility] Outpatient Attender: Shaniqua COOPERANGIE-SJP 01:02:16 PM EDT - 12/16/2020 02:34:15 PM EDT [facility] [place] [address] [address] 12/01/2020 12:00:00 AM EDT eCW1 ([facility]) Outpatient Attender: JOVANY Rogers [facility] 11/29/2020 08:40:00 AM EDT [facility] ([facility]) [place] [address] [address] 11/25/2020 12:00:00 AM EDT eCW1 ([facility]) [place] [address] [place] [address] 11/19/2020 12:00:00 AM EDT eCW1 ([facility]) Outpatient Attender: CHERYL MEYER MD [facility] 11:15:00 AM EDT [facility] ([facility] [place] [address] [address] 11/16/2020 12:00:00 AM EDT eCW1 ([facility]) Outpatient [address] [facility] [place] [address] 11/12/2020 12:00:00 AM EDT eCW1 ([facility]) Outpatient Admitter: Jason Zaragoza MDReferrer: aJson Zaragoza MD 11/10/2020 12:00:00 AM EDT Chronic myeloproliferative disease [facility] Chronic myeloproliferative disease Outpatient Attender: NATALY AWAD.ANGIE-SJP.ANGIE 09/2020 12:00:00 AM EDT - 11/10/2020 02:23:04 PM EDT [facility] Inpatient Attender: Jeovany Fletcher MDAdmitter: Jeovany bocanegra MD [id number] 10/19/2020 07:36:00 AM EDT - 10/20/2020 05:47:00 PM EDT [facility] Patient discharged. Outpatient Attender: Hira Hernández MD ER-RAD 09/09/2020 04:06:00 AM [facility] Outpatient Attender: Jose Newton DOAdmitter: Jose Newton DOReferrer: Kevin Anderson ES1-SJ.EU 08/07/2020 02:14:35 PM EDT - 08/12/2020 12:26:00 PM EDT [facility] Patient discharged. Outpatient Attender: NATALY AWAD.ANGIE-[email or web address].ANGIE 12:00:00 AM EDT - 07/30/2020 09:18:31 AM EDT [facility] Outpatient Attender: CHERYL MEYER MD [facility] 01:30:00 PM EDT [facility] Outpatient Attender: CHERYL MEYER MDConsultant: CHERYL GALLOWAY MD 07/15/2020 07:32:00 AM EDT - 07/15/2020 08:32:[address] [facility] Patient discharged. Outpatient Attender: NATALY COOPERANGIE-SJP.ANGIE 09:17:03 AM EDT - 07/01/2020 10:18:29 AM EDT [facility] Outpatient Attender: CHERYL MEYER MDR eferrer: CHERYL MEYER MDConsultant: CHERYL MEYER MD 06/30/2020 04:49:00 PM EDT - 06/30/2020 04:59: [address] [facility] Outpatient Attender: CHERYL MEYER MD [facility] 03:40:00 PM EDT [facility] ([facility] Inpatient Attender: Jeovany Fletcher MDAdmitter: Jeovany bocanegra MD ES1-SJ.CVPARISH 06/22/2020 03:02:45 PM EDT [facility] Outpatient Attender: Jeovany Fletcher MDAdmitter: Jeovany bocanegra MD ES1-SJ.CVAU 06/18/2020 05:35:00 AM EDT - 06/18/2020 03:00:00 PM EDT [facility] Patient discharged. Outpatient Attender: Zainab Coronado MD SJP.ANGIE-SJP.ANGIE 05/06 12:00:00 AM EDT - 06/02/2020 01:49:51 PM EDT [facility] Outpatient Attender: CHERYL MEYER MD [facility] 12:15:00 PM EST [facility] ([facility] Outpatient Attender: CHERYL MEYER MD [facility] 10:00:00 AM EST [facility] ([facility] Outpatient<td ID="encounterTypeDescripti onID0">1 Year Follow-Up</td><td>Zach Siegel MD, FACS</td><td>[facility]</td><td>01/02/2020</td><td>9:02AM</td><td>9:59AM</td><td><content ID="encounterDiagnosisID0-0">Conjunctivitis Chronic Allergic</content>, <content ID="encounterDiagnosisID0-1">Dry Eye Syndrome Both Eyes</content>, <content ID="encounterDiagnosisID0-2">Pinguecula Bilateral</content>, <content ID="encounterDiagnosisID0-3">Dizziness</content></td> Attender: Zach Carvalho MD, FACS Zach Siegel MD [facility] 01/02/2020 09:02:00 AM EDT - 01/02/2020 09:59:00 AM EDT DizzinessPinguecula BilateralConjunctivi tis Chronic AllergicDry Eye Syndrome Both Eyes LUCÍA (Zach Carvalho MD [facility]) Dizziness Pinguecula Bilateral 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 Outpatient Attender: CHERYL MEYER MD [facility] 11/2019 11:00:00 AM EDT [facility] ([facility] Outpatient SJP.[email or web address]-[email or web address].ANGIE 12/10/2019 12:00:00 AM EDT [facility] Outpatient Referrer: Zainab AWDA.ANGIE-SJP.ANGIE 08/2019 12:00:00 AM EDT [facility] Outpatient Attender: Zainab AWAD.ANGIE-SJP.ANGIE 07/2019 12:00:00 AM EDT - 12/09/2019 04:36:48 PM EDT [facility] Immunizations Vaccine Date Status Description Data Source(s) COVID-19 VACCINE Moderna 07/06/2020 12:00:00 AM EDT completed [facility] Vaccine Series Complete: YESThis Data wa s Submitted to [facility] Via [employer]. COVID-19 VACC,MRNA(MODERNA)/PF 06/04/2020 12:00:00 AM EDT completed [facility] COVID-19 VACCINE Moderna 06/04/2020 12:00:00 AM EDT completed [facility] Vaccine Series Complete: NOThis Data was Submitted to [facility] Via [employer]. Medications Medication Brand Name Start Date Product [...] 1 per rectum prn starting POD #3.
[facility] Medication administered onsite POLYETHYLENE GLYCOL 3350 142 MG/ML Oral Solution polyethylene glycol (GLYCOLAX) packet 17 g polyethylene glycol (GLYCOLAX) packet 17 g 10/21/2020 07:00:00 AM EDT 17 g Oral active 17 g, Or al, Daily PRN, For constipation, Starting on Mon10/21/20 at 0700, PACU & Post-op
hold for loose stools
[facility] Medication administered onsite 500 mg 10/21/2020 [...] Mon10/20/20 at 0900, Post-op
Start first POD.
[facility] Medication administered onsite normal saline flush 0.9 % injection 3 mL [id number] 10/20/2020 09:00:00 AM EDT 3 mL Intravenous active 3 mL , Intravenous, PROTOCOL, First dose on Mon10/20/20 at 0900, Post-op
flush per protocol, D/C Main IV fluid if appropriate
[facility] Medication administered onsite clopidogrel 75 MG Oral Tablet clopidogrel (PLAVIX) tab let 75 mg clopidogrel (PLAVIX) tablet 75 mg 10/20/2020 09:00:00 AM EDT 75 mg Oral active 75 mg, Oral, Daily, First dose on Mon10/20/20 at 0900, Post-op
Start first POD.
[facility] Medication administered onsite Amoxicillin 500 MG Oral Capsule amoxicillin (AMOXIL) 5 00 MG capsule amoxicillin (AMOXIL) 500 MG capsule 10/20/2020 12:00:00 AM EDT 2000 mg Oral aborted Take 4 capsules (2,000 mg total) by mout h as needed Take prior to dental procedures [facility] sodium chloride 0.9% (NS) infusion 0520-2609-86 10/19/2020 10:00:00 P M EDT Intravenous completed at 100 mL/hr, Intravenous, Continuous, Starting on Mon10/19/20 at 2200, For 4 hours, Post-op [facility] Medication administered onsite Cefazolin 1000 MG [...] minutes. Use within 1 hour of reconstitution
[facility] Perioperative Pharmacoprophylaxis Medication administered onsite acetaminophen [...] Mon10/19/20 at 2047, Post-op [Order 2 End] [facility] Medication administered onsite 2 ML Metoclopramide 5 MG/ML Prefilled Sy ringe metoclopramide (REGLAN) injection 10 mg metoclopramide (REGLAN) injection 10 mg 10/19/2020 08:48:36 PM E DT 10 mg Intravenous active 10 mg, I ntravenous, Every 6 hours PRN, nausea, vomiting, Starting on Mon10/19/20 at 2047, Post-op
Give once if no response to Zofran after 15-30 minutes, then q6h prn N/V.
[facility] Medication administered onsite ondansetron (ZOFRAN) injection 4 mg [id number] 10/19/2020 08:48:3 6 PM EDT 4 mg Intravenous active 4 mg, In travenous, Every 6 hours PRN, nausea, vomiting, Starting on Mon10/19/20 at 2047, Post-op
If no response in 15-30 minutes then give metoclopramide 10 mg IV x 1 then q6h prn N/V.
[facility] Medication administered onsite 10 ML Atropine [...] total of 3 mg or 0.04 mg/kg.
[facility] Medication administered onsite 8 mg 10/13/2020 [...] saline flush 0.9 % injection 3 mL [id number] 08/12/2020 02:00:00 PM EDT 3 mL Intravenous active 3 mL , Intravenous, Every 8 hours (scheduled), First dose on Mon08/12/20 at 1400, PACU (only)
flush per protocol, D/C Main IV fluid if appropriate
[facility] Medication administered onsite Magnesium Chloride 0.38562 MEQ/ML / Pota ssium Chloride 0.0497 MEQ/ML / Sodium Acetate 0.0163 MEQ/ML / Sodium Chloride 0.0899 MEQ/ML / Sodium gluconate 5.02 MG/ML Injectable Solution [Normosol-R] electrolyte-R (NORMOSOL-R/PLASMALYTE-R) solution electrolyte-R (NORMOSOL-R/PLASMALYTE-R) solution 08/12 12:00:00 PM EDT Intravenous active at 1 00 mL/hr, Intravenous, Continuous, Starting on Mon08/12/20 at 1200, Pre-op [facility] Medication administered onsite Magnesium Chloride 0.07953 MEQ/ML / Pota ssium Chloride 0.0497 MEQ/ML [...] mg/dL, start IV of Normosol-R @100 mL/hr.
[facility] Medication administered onsite ondansetron (ZOFRAN) injection 4 mg [id number] 08/12/2020 11:03:5 4 AM EDT 4 mg Intravenous active 4 mg, In travenous, As needed, nausea, vomiting, Starting on Mon08/12/20 at 1103, For 1 dose, PACU (only)
If not given in last 4 hours
[facility] Medication administered onsite Hydralazine Hydrochloride 20 MG/ML Injec table Solution hydrALAZINE (APRESOLINE) injection 5 mg hydrALAZINE (APRESOLINE) injection 5 mg 08/12/2020 11: 03:54 AM EDT 5 mg Intravenous active 5 mg , Intravenous, Every 15 min PRN, high blood pressure, Starting on Mon08/12/20 at 1103, For 4 doses, PACU (only)
Give for a SBP >150 and /or a DBP >100
[facility] Medication administered onsite Albuterol 0.83 MG/ML Inhalant Solution a lbuterol (PROVENTIL) nebulizer solution 2.5 mg albuterol (PROVENTIL) nebulizer solution 2.5 mg 2020 11:03:54 AM EDT 2.5 mg active 2.5 mg, Nebulization, Once as needed, shortness of breath, Starting on Mon08/12/20 at 1103, For 1 dose, PACU (only) [facility] Medication administered onsite normal saline flush 0.9 % injection 3 mL [id number] 06/18/2020 02:00:00 PM EDT 3 mL Intravenous active 3 mL , Intravenous, PROTOCOL, First dose on Hyun 06/18/20 at 1400, Pre-op
flush per protocol, D/C Main IV fluid if appropriate
[facility] Medication administered onsite iopamidol (ISOVUE-370) 76 % 120 mL [id number] 06/18/2020 12:22:16 PM EDT 120 mL Intravenous completed 120 mL, Intra venous, Once in imaging, contrast, Starting Hyun 06/18/20 at 1222, For 1 dose [facility] Medication administered onsite iopamidol (ISOVUE-370) 76 % [id number] 06/18/2020 09:46:09 AM EDT active As needed, Starting Hyun 06/18/20 at 0946, Intra-Procedu re [facility] Medication administered onsite 4 ML Verapamil hydrochloride 2.5 MG/ML Injection verap dilcia (ISOPTIN) injection verapamil (ISOPTIN) injection 06/18/2020 09:29:02 AM EDT active As needed, Starting Hyun 06/18/20 at 0929, Intra-Procedure [facility] Medication administered onsite 1 ML heparin sodium, porcine 1000 UNT/ML Injection hep joe (porcine) injection heparin (porcine) injection 06/18/2020 09:28:54 AM EDT active As needed, Starting Hyun 06/18/20 at 0928, Intra-Procedure [facility] Medication administered onsite lidocaine 1 % injection [id number] 06/18/2020 09:26:06 AM EDT active As needed, Starting Hyun 06/18/20 at 0926, Intra-Procedure [facility] Medication administered onsite 2 ML Midazolam 1 MG/ML Injection midazolam (VERSED) in jection midazolam (VERSED) injection 06/18/2020 09:22:34 AM EDT active As needed, Starting Hyun 06/18/20 at 0922, Intra-Procedure [facility] Medication administered onsite normal saline flush 0.9 % injection 3 mL [id number] 06/18/2020 07:00:00 AM EDT 3 mL Intravenous active 3 mL , Intravenous, Every 8 hours (scheduled), First dose on Hyun 06/18/20 at 0700, Pre-op
Rapid push positive pressure flushing shall be performed with a 10 cc normal saline syringe to check the PATENCY of a PIV site prior to any infusion therapy initiation unless resistance is met.
[facility] Medication administered onsite normal saline flush 0.9 % injection 3 mL [id number] 06/18/2020 07:00:00 AM EDT 3 mL Intravenous active 3 mL , Intravenous, Every 8 hours (scheduled), First dose on Hyun 06/18/20 at 0700, Pre-op
Rapid push positive pressure flushing shall be performed with a 10 cc normal saline syringe to check the PATENCY of a PIV site prior to any infusion therapy initiation unless resistance is met.
[facility] Medication administered onsite Aspirin 325 MG [...] home. Max of 1 dose per day.
[facility] Medication administered onsite Diphenhydramine Hydrochloride 50 MG Oral Capsule diphenhydrAMINE (BENADRYL) capsule 50 mg diphenhydrAMINE (BENADRYL) capsule 50 mg 06/18/2020 07 :00:00 AM EDT 50 mg Oral completed 50 mg, Oral, call taker, Hyun 06/18/20 at 0700, For 1 dose, Pre-op [facility] Medication administered onsite sodium chloride 0.9% (NS) infusion [id number] 06/18/2020 07:00:00 AM EDT 100 mL/h Intravenous active at 100 m L/hr, 100 mL/hr, Intravenous, Continuous, Starting Hyun 06/18/20 at 0700, Pre-op
Start two hours prior to scheduled start time
[facility] Medication administered onsite Aspirin 81 MG Delayed Release Oral Tablet aspirin EC 8 1 MG EC tablet aspirin EC 81 MG EC tablet 06/02/2020 12:00:00 AM EDT 81 mg Oral ac tive Take 1 tablet (81 mg total) by mouth daily [facility] Iodine, Kelp, (KELP PO) drug or medication Oral aborted Take by mouth [facility] James, Zingiber officinalis, (JAMES PO) Oral aborted Take by mouth [facility] Ondansetron 8 MG Oral Tablet ondansetron (ZOFRAN) 8 MG tablet ondansetron (ZOFRAN) 8 MG tablet 8 mg Oral aborted Take 8 mg by mouth every 8 (eight) hours as needed for nausea [facility] Prochlorperazine 10 MG Oral Tablet prochlorperazine (C OMPAZINE) 10 MG tablet prochlorperazine (COMPAZINE) 10 MG tablet 10 mg Oral aborted Take 10 mg by mouth every 8 (eight) hours as needed [facility] Flaxseed, Linseed, (FLAX PO) drug or medication Oral aborted Take by mouth [facility] Cephalexin 50 MG/ML Oral Suspension cephALEXin (KEFLEX ) 250 MG/5ML suspension cephALEXin (KEFLEX) 250 MG/5ML suspension Oral aborted Take by mouth 3 (three) times a day Via port [facility] 1 ML heparin sodium, porcine 1000 UNT/ML Injection Heparin Sodium, Porcine, (heparin, porcine,) 1000 UNIT/ML injection Heparin Sodium, Porcine, (heparin, porcine,) 1000 UNIT/ML injection Intravenous aborted Infuse into a venous catheter not sure of dose [facility] Insurance Providers Payer name Policy type / Coverage type Policy ID Covered democrat ID Covered democrat's relationship to king Policy [place] Plan Information MEDICARE [id number] Sheryl [id number] Y25 MEDICARE [id number] xxxxxxxxxxx [id number] MEDICARE [id number] SP [id number] MEDICARE [id number] SP [id number] A [id number] A MEDICARE A [id number] Self [id number] Y25 UMR [id number] [id number] UMR [id number] Sheryl [id number] UMR U [id number] Self [id number] INSURANCE COVID-19 COVID Sheryl C OVID INSURANCE COVID-19 COVID Sheryl C OVID INSURANCE COVID-19 [id number] 2 [id number] [place] (pr) Medigap Part B [id number] [place] Medicare [place] Primary [id number] Self [id number] MEDICARE PART A -O/P [id number] 18 [id number] [employer] Other 0 [id number] Self 0 Medicare Part B of [facility] Other 0 [id number] Self 0 MEDICARE [id number] S [id number] Y25 UMR -O/P [id number] [id number] [facility] [id number] SP [id number] UMR -O/P [id number] 18 [id number] UMR O [id number] S [id number] 0 MEDICARE C [id number] S [id number] [employer] Other 0 [id number] Self 0 Medicare Part B of [facility] Other 0 [id number] Self 0 [employer] [id number] SP [id number] Problems, Conditions, and Diagnoses Code Display Name Description Problem Type Effective Dates Data Source(s) C25.9 Malignant neoplasm of pancreas, unspecif ied Malignant neoplasm of pancreas, unspecif Diagnosis 12/16/2020 01:02:16 PM EDT [facility] I35.0 Nonrheumatic aortic (valve) stenosis Nonrheumati c aortic (valve) stenosis Diagnosis 12/16/2020 01:02:16 PM EDT [facility] R42 Dizziness and giddiness Dizziness and giddiness Diagno sis 12/16/2020 01:02:16 PM EDT [facility] D47.1 Chronic myeloproliferative disease Chronic myelo proliferative disease Diagnosis 11/10/2020 01:58:00 PM EDT [facility] C25.9 Malignant neoplasm of pancreas, unspecif ied MALIGNANT NEOPLASM OF PANCREAS, UNSPECIF Diagnosis 09/09/2020 04:06:00 AM EDT [facility] C25.8 Malignant neoplasm of overlapping sites of pancreas MALIGNANT NEOPLASM OF OVERLAPPING SITES OF PANCREAS Diagnosis 09/09/2020 04:06:00 AM EDT [facility] K86.89 Other specified diseases of pancreas Oth er specified diseases of pancreas Diagnosis 08/12/2020 07:41:00 AM EDT [facility] R933 Abnormal findings on diagnostic imaging of other parts of digestive tract Abnormal findings on diagnostic imaging of other parts of digestive tract Diagnosis 07/15/2020 07:32:[address] [facility] C251 Malignant neoplasm of body of pancreas M alignant neoplasm of body of pancreas Diagnosis 07/15/2020 07:32:[address] [facility] [id number] Impaired fasting glucose Impaired fasting glucose Diag nosis 06/30/2020 04:49:[address] [facility] I350 Nonrheumatic aortic (valve) stenosis Nonrheumati c aortic (valve) stenosis Diagnosis 06/30/2020 04:49:[address] 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) Problem 11/12/2020 12:00:00 AM EDT [facility] ([facility]) R78.81 [id number] Bacteremia Problem 11/12/2020 12:00:00 AM ED T [facility] ([facility]) A49.01 [id number] MSSA (methicillin susceptible Staphylococ cus aureus) Problem 11/12/2020 12:00:00 AM EDT [facility] ([facility]) C25.9 Pancreatic cancer Pancreatic cancer [id number] 11/10/2020 12:00:00 AM EDT [facility] I35.0 Nonrheumatic aortic (valve) stenosis Nonrheumati c aortic (valve) stenosis [id number] 10/19/2020 12:00:00 AM EDT [facility] R06.02 Shortness of breath Shortness of breath [id number] 0 06/05/2020 12:00:00 AM EDT [facility] I35.0 Nonrheumatic aortic valve stenosis Nonrheumatic aortic valve stenosis [id number] 12/09/2019 12:00:00 AM EDT [facility] Surgeries/Procedures Procedure Description Date Indications Data Source(s) ECG ROUTINE ECG W/LEAST 12 LDS W/I&R <td>POCT AMB EKG</td><td>Routine</td><td>12/16/2020 2:50 PM EDT</td><td> Dizziness</td><td> </td> 12/16/2020 02:50:00 PM EDT Dizziness [facility] Dizziness BLOOD COUNT COMPLETE AUTO&AUTO DIFRNTL WBC COUNT <td>C BC AND DIFFERENTIAL</td><td>Routine</td><td>12/10/2020</td><td></td><td> </td> 12/10/2020 12:00:00 AM EDT [facility] HEPATIC FUNCTION PANEL <td>HEPATIC FUNCTION PANEL</td><td>Routine</td><td>12/10/2020</td><td></td><td> </td> 12/10/2020 12:00:00 AM EDT [facility] BASIC METABOLIC PANEL CALCIUM TOTAL <td>BASIC METABOLI C PANEL</td><td>Routine</td><td>12/10/2020</td><td></td><td> </td> 12/10/2020 12:00:00 AM EDT [facility] OFFICE OUTPATIENT NEW 30 MINUTES 11/29/2020 12:00:00 A M EDT [facility] ([facility]) OFFICE OUTPATIENT VISIT 25 MINUTES 11/17/2020 12:00:00 AM EDT [facility] ([facility] POCT AMB EKG <td>POCT AMB EKG</td><td>Rou migdalia</td><td>11/10/2020 1:42 PM EDT</td><td> Nonrheumatic aortic (valve) stenosis</td><td> </td> 11/10/2020 01:42:00 PM EDT Nonrheumatic aortic (valve) stenosis [facility] Nonrheumatic aortic (valve) stenosis TROPONIN QUANTITATIVE <td>TROPONIN I</td><td>Routine</td><td>10/23/2020</td><td></td><td> </td> 10/23/2020 12:00:00 AM EDT [facility] PROTHROMBIN TIME <td>PROTIME- INR</td><td>Routine</td><td>10/23/2020</td><td></td><td> </td> 10/23/2020 12:00:00 AM EDT [facility] PROTHROMBIN TIME <td>POCT INR</td><td>Routine</td><td>10/23/2020</td><td></td><td> </td> 10/23/2020 12:00:00 AM EDT [facility] BLOOD COUNT COMPLETE AUTOMATED <td>CBC</td><td>Timed</ td><td>10/20/2020 3:41 PM EDT</td><td></td><td> </td> 10/20/2020 03:41:00 PM EDT [facility] BASIC METABOLIC PANEL CALCIUM TOTAL <td>BASIC METABOLI C PANEL</td><td>Timed</td><td>10/20/2020 3:41 PM EDT</td><td></td><td> </td> 10/20/2020 03:41:00 PM EDT [facility] ECHO TTHRC R-T 2D W/WOM-MODE COMPL SPEC&COLR DOP <td>E CHOCARDIOGRAM TRANSTHORACIC</td><td>Routine</td><td>10/20/2020 11:14 AM EDT</td><td></td><td> </td> 10/20/2020 11:14:47 AM EDT [facility] PROTHROMBIN TIME <td>PROTIME-INR</td><td>Rout ine</td><td>10/20/2020 12:17 AM EDT</td><td></td><td> </td> 10/20/2020 12:17:00 AM EDT [facility] MAGNESIUM <td>MAGNESIUM</td><td>Routin e</td><td>10/20/2020 12:17 AM EDT</td><td></td><td> </td> 10/20/2020 12:17:00 AM EDT [facility] XR CHEST PORTABLE <td>XR CHEST PORTABLE</td><t d>STAT</td><td>10/19/2020 3:47 PM EDT</td><td></td><td> </td> 10/19/2020 03:47:27 PM EDT [facility] PROTHROMBIN TIME <td>PROTIME-INR</td><td>STAT </td><td>10/19/2020 3:45 PM EDT</td><td></td><td> </td> 10/19/2020 03:45:00 PM EDT [facility] BLOOD COUNT COMPLETE AUTOMATED <td>CBC</td><td>STAT</t d><td>10/19/2020 3:45 PM EDT</td><td></td><td> </td> 10/19/2020 03:45:00 PM EDT [facility] MAGNESIUM <td>MAGNESIUM</td><td>STAT</ td><td>10/19/2020 3:45 PM EDT</td><td></td><td> </td> 10/19/2020 03:45:00 PM EDT [facility] BASIC METABOLIC PANEL CALCIUM TOTAL <td>BASIC METABOLI C PANEL</td><td>STAT</td><td>10/19/2020 3:45 PM EDT</td><td></td><td> </td> 10/19/2020 03:45:00 PM EDT [facility] ECG ROUTINE ECG W/LEAST 12 LDS W/I&R <td>ECG 12- LEAD</td><td>Routine</td><td>10/19/2020 3:23 PM EDT</td><td></td><td></td> 10/19/2020 03:23:01 PM EDT [facility] TRANSCATHETER AORTIC VALVE IMPLANT FEMORAL <td>TRANSCA THETER AORTIC VALVE IMPLANT FEMORAL</td><td>Routine</td><td>10/19/2020 2:58 PM EDT</td><td> Nonrheumatic aortic (valve) stenosis</td><td> </td> 10/19/2020 02:58:54 PM EDT Nonrheumatic aortic (valve) stenosis [facility] Nonrheumatic aortic (valve) stenosis POC ACT <td>POC ACT</td><td>Routine< /td><td>10/19/2020 2:46 PM EDT</td><td></td><td> </td> 10/19/2020 02:46:00 PM EDT [facility] POC ARTERIAL BLOOD GAS W LYTES <td>POC ARTERIAL BLOOD GAS W LYTES</td><td>Routine</td><td>10/19/2020 2:46 PM EDT</td><td></td><td> </td> 10/19/2020 02:46:00 PM EDT [facility] POC ACT <td>POC ACT</td><td>Routine< /td><td>10/19/2020 2:08 PM EDT</td><td></td><td> </td> 10/19/2020 02:08:00 PM EDT [facility] POC ARTERIAL BLOOD GAS W LYTES <td>POC ARTERIAL BLOOD GAS W LYTES</td><td>Routine</td><td>10/19/2020 2:08 PM EDT</td><td></td><td> </td> 10/19/2020 02:08:00 PM EDT [facility] BLOOD TYPING ABO <td>TYPE AND SCREEN</td><td> Routine</td><td>10/19/2020 9:00 AM EDT</td><td></td><td> </td> 10/19/2020 09:00:00 AM EDT [facility] ROOM TEMP AB SCREEN <td>ROOM TEMP AB SCREEN</td> <td>STAT</td><td>10/19/2020 8:54 AM EDT</td><td></td><td> </td> 10/19/2020 08:54:00 AM EDT [facility] NT PRO BNP <td>NT PRO BNP</td><td>STAT< /td><td>10/19/2020 8:54 AM EDT</td><td></td><td> </td> 10/19/2020 08:54:00 AM EDT [facility] PROTHROMBIN TIME <td>PROTIME-INR</td><td>STAT </td><td>10/19/2020 8:54 AM EDT</td><td></td><td> </td> 10/19/2020 08:54:00 AM EDT [facility] BLOOD COUNT COMPLETE AUTOMATED <td>CBC</td><td>STAT</t d><td>10/19/2020 8:54 AM EDT</td><td></td><td> </td> 10/19/2020 08:54:00 AM EDT [facility] MAGNESIUM <td>MAGNESIUM</td><td>STAT</ td><td>10/19/2020 8:54 AM EDT</td><td></td><td> </td> 10/19/2020 08:54:00 AM EDT [facility] HEMOGLOBIN GLYCOSYLATED A1C <td>HEMOGLOBIN A1C</td><td >STAT</td><td>10/19/2020 8:54 AM EDT</td><td></td><td> </td> 10/19/2020 08:54:00 AM EDT [facility] COMPREHENSIVE METABOLIC PANEL <td>COMPREHENSIVE METABO LIC PANEL</td><td>STAT</td><td>10/19/2020 8:54 AM EDT</td><td></td><td> </td> 10/19/2020 08:54:00 AM EDT [facility] GLUC BLD GLUC MNTR DEV CLEARED FDA SPEC HOME USE <td>P OCT GLUCOSE</td><td>Routine</td><td>10/19/2020 8:47 AM EDT</td><td></td><td> </td> 10/19/2020 08:47:00 AM EDT [facility] UPPER NDSC BIOPSY SINGLE/MULTIPLE 08/12/2020 12:00:00 AM EDT [facility] ([facility]) Endo W/Eus & Fna (Stomach) 08/12/2020 12:00:00 AM EDT [facility] ([facility]) OFFICE OUTPATIENT VISIT 25 MINUTES 07/29/2020 12:00:00 AM EDT [facility] ([facility] ECG ROUTINE ECG W/LEAST 12 LDS W/I&R <td>POCT AMB EKG</td><td>Routine</td><td>07/02/2020 8:24 AM EDT</td><td> Nonrheumatic aortic valve stenosis</td><td> </td> 07/02/2020 08:24:00 AM EDT Nonrheumatic aortic valve stenosis [facility] Nonrheumatic aortic valve stenosis OFFICE OUTPATIENT VISIT 25 MINUTES 06/29/2020 12:00:00 AM EDT [facility] ([facility] CT ANGIO ABD&PLVIS CNTRST MTRL W/WO CNTRST IMGES <td>C T ANGIOGRAM ABDOMEN PELVIS</td><td>Routine</td><td>06/18/2020 12:40 PM EDT</td><td></td><td> </td> 06/18/2020 04:40:27 PM EDT [facility] CT ANGIOGRAPHY CHEST W/CONTRAST/NONCONTRAST <td>CT ANG IOGRAM CHEST</td><td>Routine</td><td>06/18/2020 12:40 PM EDT</td><td></td><td> </td> 06/18/2020 04:40:27 PM EDT [facility] DUPLEX SCAN EXTRACRANIAL ART COMPL BI STUDY <td>US CAR OTID BILATERAL</td><td>Pending Discharge</td><td>06/18/2020 11:51 AM EDT</td><td></td><td> </td> 06/18/2020 03:51:24 PM EDT [facility] BEDSIDE PULMONARY FUNCTION TEST <td>BEDSIDE PULMONARY FUNCTION TEST</td><td>Routine</td><td>06/18/2020 9:47 AM EDT</td><td></td><td></td> 06/18/2020 01:47:22 PM EDT [facility] RADEX SPINE ENTIRE SURVEY STD ANTEROPOST&LAT <td>CARDI AC CATHETERIZATION</td><td>Routine</td><td>06/18/2020 9:43 AM EDT</td><td> Nonrheumatic aortic valve stenosis Shortness of breath</td><td> </td> 06/18/2020 01:43:44 PM EDT Shortness of breathNonrheumatic aortic valve stenosis [facility] Shortness of breath Nonrheumatic aortic valve stenosis ECG ROUTINE ECG W/LEAST 12 LDS TRCG ONLY W/O I&R <td>E CG 12- LEAD</td><td>Routine</td><td>06/18/2020 6:20 AM EDT</td><td></td><td></td> 06/18/2020 10:20:47 AM EDT [facility] ECG ROUTINE ECG W/LEAST 12 LDS W/I&R <td>POCT AMB EKG</td><td>Routine</td><td>06/02/2020 1:36 PM EDT</td><td> Nonrheumatic aortic valve stenosis</td><td> </td> 06/02/2020 05:36:00 PM EDT Nonrheumatic aortic valve stenosis [facility] Nonrheumatic aortic valve stenosis Intermediate Eye Exam Established Patient Intermediate Eye Exam Established Patient 01/02/2020 12:00:00 AM EDT [facility] (Wilfred id Mare Benedict Carvalho MD [facility]) Results ID Date Data Source [id number] 01/19/2021 07:54:00 AM EST [facility] ([facility] Name Value Range Interpretation Code Description Data Ssuan rce(s) Supporting Document(s) White Blood Count 7.7 [...] normal [facility] ( [facility] [place] % 31.3 % 2.0-8.0 Above high normal [facility] ([facility] Eos % 0.6 [...] Normal (applies to n on-numeric results) [facility] ([facility] Neutrophils # 4.1 10 1.5-8.5 Normal (applies to non-numeric re sults) [facility] ([facility] Lymph # 0.8 10 1.5-5.0 Below low normal [facility] ( [facility] [place] # 2.4 10 0.0-0.8 Above high normal [facility] ([facility] Eos # 0.1 10 0.0-0.5 Normal (applies to non-numeric resul ts) [facility] ([facility] Baso # 0.0 10 0.0-0.2 Normal (applies to non-numeric resul ts) [facility] ([facility] ID Date Data Source [id number] 01/19/2021 07:54:00 AM EST [facility] ([facility] Name Value Range Interpretation Code Description Data Susan rce(s) Supporting Document(s) Cancer Ag 19-9 [Units/volume] in Serum or Plasma 38866.1 U/ML Above high normal [facility] ([facility] ) THE CA 19-9 ASSAY IS PERFORMED ON THE [employer] BY CHEMILUMINESCENCE AND SHOULD NOT BE COMPARED INTERCHANGEABLY WITH OTHER METHODS. IT SHOULD NOT BE USED ALONE A SCREENING TEST OR DIAGNOSIS FOR THE PRESENCE OR ABSENCE OF MALIGNANT DISEASE. PREDICTIONS OF DISEASE RECURRENCE SHOULD NOT BE BASED SOLELY ON VALUES OBTAINED FROM SERIAL PATIENT SERUM VALUES. ID Date Data Source [id number] 01/19/2021 07:54:00 AM EST [facility] ([facility] Name Value Range Interpretation Code Description Data Susan rce(s) Supporting Document(s) Glucose, Fasting 141 mg/dL 70-100 Above high normal [facility] ([facility] Blood Urea Nitrogen 11 mg/dL 7-18 Normal (applies to non-nume reid results) [facility] ([facility] Creatinine For GFR 0.80 mg/dL 0.70-1.30 Normal (applies to non -numeric results) [facility] ([facility] Glomerular Filtration Rate Laboratory test result Normal (applies to non- numeric results) [facility] ) <content>Units are mL/min/1.73 m2</content>
<content></content>
<content>Chronic Kidney Disease Staging per NKF:</content>
<content></content>
<content>Stage I & II GFR >=60 Normal to Mildly Decreased</content>
<content>Stage III GFR 30- 59 Moderately Decreased</content>
<content>Stage IV GFR 15-29 Severely Decreased</content>
<content>Stage V GFR <15 Very Little GFR Left</content>
<content>ESRD GFR <15 on TUNNEL MINER</content>
<content></content> Sodium Level 138 meq/L 136-145 Normal (applies to non-numeric res ults) [facility] ([facility] Potassium Serum 4.0 meq/L 3.5-5.1 Normal (applies to non-numeric results) [facility] ([facility] Chloride Level 107 meq/L 98-107 Normal (applies to non-numeric r esults) [facility] ([facility] Carbon Dioxide Level 25 meq/L 21-32 Normal (applies to non-num mckenzie results) [facility] ([facility] Anion Gap 6 meq/L 8-16 Below low normal [facility] ( [facility] Calcium Level 8.8 mg/dL 8.8-10.2 Normal (applies to non-numeric re sults) [facility] ([facility] Ast/Sgot 13 U/L 7-37 Normal (applies to non-numeric resul ts) [facility] ([facility] Alkaline Phosphatase 74 U/L 45-117 Normal (applies to non-num mckenzie results) [facility] Alt/SGPT 17 U/L 12-78 Normal (applies to non-numeric resul ts) [facility] ([facility] Bilirubin,Total 0.5 mg/dL 0.2-1.0 Normal (applies to non-numeric results) [facility] ([facility] Total Protein 6.6 GM/DL 6.4-8.2 Normal (applies to non-numeric re sults) [facility] Albumin 3.8 GM/DL 3.2-5.2 Normal (applies to non-numeric resul ts) [facility] ([facility] Albumin/Globulin Ratio 1.4 Normal (applies to non-n umeric results) [facility] ([facility] ID Date Data Source [id number] 01/12/2021 08:04:00 AM EST [facility] Name Value Range Interpretation Code Description Data Susan rce(s) Supporting Document(s) Glucose, Fasting 166 mg/dL 70-100 Above high normal [facility] ([facility] Blood Urea Nitrogen 14 mg/dL 7-18 Normal (applies to non-nume reid results) [facility] ([facility] Glomerular Filtration Rate Laboratory test result Normal (applies to non- numeric results) [facility] ([facility] ) <content>Units are mL/min/1.73 m2</content>
<content></content>
<content>Chronic Kidney Disease Staging per NKF:</content>
<content></content>
<content>Stage I & II GFR >=60 Normal to Mildly Decreased</content>
<content>Stage III GFR 30- 59 Moderately Decreased</content>
<content>Stage IV GFR 15-29 Severely Decreased</content>
<content>Stage V GFR <15 Very Little GFR Left</content>
<content>ESRD GFR <15 on TUNNEL MINER</content>
<content></content> Creatinine For GFR 0.85 mg/dL 0.70-1.30 Normal (applies to non -numeric results) [facility] ([facility] Sodium Level 138 meq/L 136-145 Normal (applies to non-numeric res ults) [facility] ([facility] Potassium Serum 3.8 meq/L 3.5-5.1 Normal (applies to non-numeric results) [facility] ([facility] Chloride Level 106 meq/L 98-107 Normal (applies to non-numeric r esults) [facility] ([facility] Anion Gap 6 meq/L 8-16 Below low normal [facility] ( [facility] Carbon Dioxide Level 26 meq/L 21-32 Normal (applies to non-num mckenzie results) [facility] ([facility] Calcium Level 9.1 mg/dL 8.8-10.2 Normal (applies to non-numeric re sults) [facility] ([facility] Ast/Sgot 8 U/L 7-37 Normal (applies to non-numeric resul ts) [facility] ([facility] Alt/SGPT 18 U/L 12-78 Normal (applies to non-numeric resul ts) [facility] ([facility] Alkaline Phosphatase 71 U/L 45-117 Normal (applies to non-num mckenzie results) [facility] ([facility] Total Protein 6.6 GM/DL 6.4-8.2 Normal (applies to non-numeric re sults) [facility] ([facility] Bilirubin,Total 0.8 mg/dL 0.2-1.0 Normal (applies to non-numeric results) [facility] ([facility] Albumin 4.0 GM/DL 3.2-5.2 Normal (applies to non-numeric resul ts) [facility] ([facility] Albumin/Globulin Ratio 1.5 Normal (applies to non-n umeric results) [facility] ([facility] ID Date Data Source [id number] 01/12/2021 08:04:00 AM EST [facility] ([facility] Name Value Range Interpretation Code Description Data Susan rce(s) Supporting Document(s) Platelets reticulated/100 platelets in Blood by Automated count 3.9 % 0.0-10.91 Normal (applies to non-numeric results) [facility] ([facility] ID Date Data Source [id number] 01/12/2021 08:04:00 AM EST [facility] ([facility] Name Value Range Interpretation Code Description Data Susan rce(s) Supporting Document(s) Red Blood Count 3.82 10 4.30-6.10 Below low normal [facility] ([facility] White Blood Count 1.8 10 4.0-10.0 Below low normal [facility] ([facility] Hematocrit 35.8 % 42.0-52.0 Below low normal [facility] ( [facility] Hemoglobin 12.3 g/dL 13.5-17.5 [...] normal [facility] ([facility] [place] % 5.0 % 2.0-8.0 Normal (applies to non-numeric resul ts) [facility] ([facility] Lymph % 23.2 % 24.0-44.0 Below low normal [facility] ( [facility] Eos % 1.1 % 0.0-3.0 Normal (applies to non-numeric resul ts) [facility] ([facility] Baso % 0.0 % 0.0-1.0 Normal (applies to non-numeric resul ts) [facility] ([facility] Immature Granulocyte % 2.8 % 0-3.0 Normal (applies to non-n umeric results) [facility] ([facility] Nucleated Red Blood Cell % 0.0 % 0-0 Normal (applies to n on-numeric results) [facility] ([facility] Neutrophils # 1.2 10 1.5-8.5 Below low normal [facility] ([facility] Lymph # 0.4 10 1.5-5.0 Below low normal [facility] ( [facility] [place] # 0.1 10 0.0-0.8 Normal (applies to non-numeric resul ts) [facility] ([facility] Baso # 0.0 10 0.0-0.2 Normal (applies to non-numeric resul ts) [facility] ([facility] Eos # 0.0 10 0.0-0.5 Normal (applies to non-numeric resul ts) [facility] ([facility] ID Date Data Source [id number] 01/05/2021 09:39:00 AM EDT [facility] ([facility] Name Value Range Interpretation Code Description Data Susan rce(s) Supporting Document(s) Cancer Ag 19-9 [Units/volume] in Serum or Plasma 51074.3 U/ML Above high normal [facility] ([facility] ) THE CA 19-9 ASSAY IS PERFORMED ON THE [facility] BY CHEMILUMINESCENCE AND SHOULD NOT BE COMPARED INTERCHANGEABLY WITH OTHER METHODS. IT SHOULD NOT BE USED ALONE A SCREENING TEST OR DIAGNOSIS FOR THE PRESENCE OR ABSENCE OF MALIGNANT DISEASE. PREDICTIONS OF DISEASE RECURRENCE SHOULD NOT BE BASED SOLELY ON VALUES OBTAINED FROM SERIAL PATIENT SERUM VALUES. ID Date Data Source [id number] 01/05/2021 09:39:00 AM EDT [facility] ([facility] Name Value Range Interpretation Code Description Data Susan rce(s) Supporting Document(s) Glucose, Fasting 158 mg/dL 70-100 Above high normal [facility] Creatinine For GFR 0.84 mg/dL 0.70-1.30 Normal (applies to non -numeric results) [facility] ([facility] Blood Urea Nitrogen 13 mg/dL 7-18 Normal (applies to non-nume reid results) [facility] Glomerular Filtration Rate Laboratory test result Normal (applies to non- numeric results) [facility] ) <content>Units are mL/min/1.73 m2</content>
<content></content>
<content>Chronic Kidney Disease Staging per NKF:</content>
<content></content>
<content>Stage I & II GFR >=60 Normal to Mildly Decreased</content>
<content>Stage III GFR 30- 59 Moderately Decreased</content>
<content>Stage IV GFR 15-29 Severely Decreased</content>
<content>Stage V GFR <15 Very Little GFR Left</content>
<content>ESRD GFR <15 on TUNNEL MINER</content>
<content></content> Sodium Level 138 meq/L 136-145 Normal (applies to non-numeric res ults) [facility] ([facility] Potassium Serum 3.8 meq/L 3.5-5.1 Normal (applies to non-numeric results) [facility] ([facility] Carbon Dioxide Level 27 meq/L 21-32 Normal (applies to non-num mckenzie results) [facility] ([facility] Chloride Level 105 meq/L 98-107 Normal (applies to non-numeric r esults) [facility] ([facility] Calcium Level 9.1 mg/dL 8.8-10.2 Normal (applies to non-numeric re sults) [facility] ([facility] Anion Gap 6 meq/L 8-16 Below low normal [facility] ( [facility] Alt/SGPT 16 U/L 12-78 Normal (applies to non-numeric resul ts) [facility] ([facility] Ast/Sgot 11 U/L 7-37 Normal (applies to non-numeric resul ts) [facility] ([facility] Bilirubin,Total 0.7 mg/dL 0.2-1.0 Normal (applies to non-numeric results) [facility] ([facility] Alkaline Phosphatase 70 U/L 45-117 Normal (applies to non-num mckenzie results) [facility] ([facility] Total Protein 7.0 GM/DL 6.4-8.2 Normal (applies to non-numeric re sults) [facility] ([facility] Albumin 4.0 GM/DL 3.2-5.2 Normal (applies to non-numeric resul ts) [facility] ([facility] Albumin/Globulin Ratio 1.3 Normal (applies to non-n umeric results) [facility] ([facility] ID Date Data Source [id number] 01/05/2021 09:39:00 AM EDT [facility] ([facility] Name Value Range Interpretation Code Description Data Susan rce(s) Supporting Document(s) White Blood Count 7.2 10 4.0-10.0 Normal (applies to non-numeri c results) [facility] ([facility] Red Blood Count 4.14 10 4.30-6.10 Below low normal [facility] ([facility] Hemoglobin 13.5 g/dL 13.5-17.5 Normal (applies to non-numeric resul ts) [facility] ([facility] Hematocrit 40.0 % 42.0-52.0 Below low normal [facility] ( [facility] Mean Corpuscular HGB Conc 33.8 g/dL 32.0-36.5 Normal (applies to non-numeric results) [facility] ([facility] ) Mean Corpuscular Volume 96.6 fl 80.0-96.0 Above high normal [facility] ([facility] Mean Corpuscular Hemoglobin 32.6 pg 27.0-33.0 Norm al (applies to non-numeric results) [facility] ([facility] ) Red Cell Distribution Width 12.7 % 11.5-14.5 Norm al (applies to non-numeric results) [facility] ([facility] ) Platelet Count, Automated 125 10 150-450 Below low normal [facility] ([facility] Neutrophils % 55.8 % 36.0-66.0 Normal (applies to non-numeric re sults) [facility] ([facility] Lymph % 9.5 % 24.0-44.0 Below low normal [facility] ( [facility] Eos % 1.1 % 0.0-3.0 Normal (applies to non-numeric resul ts) [facility] ([facility] [place] % 31.6 % 2.0-8.0 Above high normal [facility] ([facility] Immature Granulocyte % 1.9 % 0-3.0 Normal (applies to non-n umeric results) [facility] ([facility] Baso % 0.1 % 0.0-1.0 Normal (applies to non-numeric resul ts) [facility] ([facility] Nucleated Red Blood Cell % 0.0 % 0-0 Normal (applies to n on-numeric results) [facility] ([facility] Neutrophils # 4.0 10 1.5-8.5 Normal (applies to non-numeric re sults) [facility] ([facility] [place] # 2.3 10 0.0-0.8 Above high normal [facility] ([facility] Lymph # 0.7 10 1.5-5.0 Below low normal [facility] ( [facility] Eos # 0.1 10 0.0-0.5 Normal (applies to non-numeric resul ts) [facility] ([facility] Baso # 0.0 10 0.0-0.2 Normal (applies to non-numeric resul ts) [facility] ([facility] ID Date Data Source [id number] 12/30/2020 08:54:54 AM EDT [facility] Name Value Range Interpretation Code Description Data Susan rce(s) Supporting Document(s) &PDF [facility] PXFVYa7uOsGWGvLz20/SYXqbYQFfi0GjJRllOSb5KTveCAGlQ7TxnPzuRYSJRVmUXDhJDDkJBkKQRX9i yKE [file] AgICAgICAgICAgICAgICAgICAgICAgICAgICAgICAgICAgICAgICAgICAgICAgICAgICAgICAgICAgIC QaKFTvOFXnHCFvBQZgRAHkTV8WQUGrMYDtCHKsRQOz ICAgICAgICAgICAgICAgICAgICAgICAgICAgICAgICAgICAgICAgICAgICAgICAgICAgICAgICAgICAg VIBfIMAxCZTwLTFpVFKdFYAsMJJvTNSgZCHoZW3ABZWrOXJcFWBeYPAzFETtRDLtIJEzEEDpEPWyVCRw ICAgICAgICAgICAgICAgICAgICAgICAgICAgICAgIC SjSJPhCAQmIVWlNMHrIFWzYOWwROBwKAPoBXOmASCoFPXoQTAbNO8DMOLyVIBpSSBdJTGfOFMqNWMhBG AgICAgICAgICAgICAgICAgICAgICAgICAgICAgICAgICAgICAgICAgICAgICAgICAgICAgICAgICAgIC DqRDPoJIAyVVOpHSAzXXPgHDNjKP2ROMWyYXRlLZSy ICAgICAgICAgICAgICAgICAgICAgICAgICAgICAgICAgICAgICAgICAgICAgICAgICAgICAgICAgICAg MCCrGZKzHOKeCYTsDXYmFZUkJYOwWTFqJEUyKQCwGV4SNNQvUUKwVQWnNFKwMCGgWANiZKRgHRYcFWVy ICAgICAgICAgICAgICAgICAgICAgICAgICAgICAgIC HzCSLeNOTzJJUaJRBnVZZyNUYmZIRhFOZwQFLcWJIwILXvBCZlWRBfXP8VECByCJEfXZRaPPJjQKNbPL AgICAgICAgICAgICAgICAgICAgICAgICAgICAgICAgICAgICAgICAgICAgICAgICAgICAgICAgICAgIC NvMLRrKBFmPSQrEXSqYUMhMNDiTGRlKU2KIMAxVGKb ICAgICAgICAgICAgICAgICAgICAgICAgICAgICAgICAgICAgICAgICAgICAgICAgICAgICAgICAgICAg NPFrZEPzYOJiIIGnBWHoAEOiHAEaPVWbYDIrYFKnGZZiAT7LVEImKYVmOSIjBRIsVGExONAbSSKsGGAf ICAgICAgICAgICAgICAgICAgICAgICAgICAgICAgIC KmNKXiFMPkDGDwZOKcIMCcKFGsUKNtDEAtAZZlYLBkJDMeVBGxJXYcXMBtUN8RRLZrLDFmBDYdEVFjRS AgICAgICAgICAgICAgICAgICAgICAgICAgICAgICAgICAgICAgICAgICAgICAgICAgICAgICAgICAgIC HbSBTaPYGyPRDgMQByHBSlWZQkPXEcVVErNG5DBP63 pZXph6F3QAKtSF1ijir/Ru6UQUsbnnAzyIZbBF0FZqIcDB3faa7QQwNtSX1hki8OHAxVPcDuD9U6dVPs TCKxWPSKCjDmF63eEPfqTy26QQbnSWZaXhDyBBr5Ea6HEgNbE7sqRAJeGfH9XUGwCeT6MCMsTyE1JDDg HtMqIJotWF9Mu9PlyYAoJCz+Dy5OQH8xb5JxVGj9Qv AmMJ3nmf3LLJvXOpYwT2D5oQMfA8X3ICldCf8KCFFvMMHzBTXbBNGPESbcNN3PYF1ahgO5OH9NzTKzZG BvSUGoiDWuTAh8P99iwWDsONocCS2WNOJ+Sigifredo+Qp0VQHGeUPKrNNLwPaEjAYLJNfRzS59hgAMdEZWbTY QmVBVnCm8DGMQqB8RyqfLocQwkfaGtBNIhCEUCUU7M ABmwguVygTHfaXjvTW92xGamGI9ISr3DRfCdIZ4okb0BxGOhAr5UOBB9YS2XNNSrPRRyMVHjDXM5FBUc WrDkKUgtGXWsVJItBUB2PDQwWXAzMM7PIkAnFJAjKvG0IzTnYKXgKIIwya7DDFLwNPHjHeG4VcXxAMFf YBRaPMnaOLOfGQLgUOxzAIEnJXMyEB1TMiHpCSWmOI T5HUSpEDBmBJHqvh2AHPMfRWVwCGJ9UTRdTRRaVLEqSPvsNSBvSZC5JGz9EFNzUMMoSF1BCsMmKVFtCD eeVNNoJWCvNKPazn8EQHTlPYWtRUX0MiOkZOFsGLLuKQprNWLsGXOwRPJpJUBuPFJdUF3WCxKxYGZeGK Y5RmUzFOHjMLVifg3QCEFyGLSoDFagBdWeFOFoSYUn RZtqJNAtIRTdVPKuRQBiXEKlQL3XMiYxKCNnDXJ3TSjgIDCtQPNzye2VVCMoGOArAyV9QEOjTOKlRCUj GWbfKLXoAXTyRnJ9YQLgOLLdRH5IJgJhVGAkMEPxCLaoBVMeZGQiqs7AITBrPSVhNDFoFDIhCMTaJYUt ZBydLFHwJST7VIxoGUJgKMQqPQ7SGwMaVEBhNEB8SQ TsHIVdATDbfk0JVWXfDHUaUXg6CxBdGUGeGXWjHLowQIDxJNX8LDIoRMQgKSVpYS9PAjRzGACrBEF1OM rfLWYqKPJtef1WBCFdQILdHdBtOFZjEQVvVXWvGHdzMMYsUUR3Rjb4ERBnGQLrTH9SNzGtTOChOQg8UG bnBHUuUJDrfc8BHUJuCQZrXlc2RGGaAZZiPXTlLDej YYDsZGN7ZJh4MMJiXMKdZC6EBeWsLDXgIVh3ZdXwKZPkAJZijq2VHAPbJGLqBCJ4YeJhGVPjIERuGKdw PLMmKOV0NYB6QHLiLZSeYO8WFxQkRWVnJNkaGpElXSQjIGHbkg4AUZWrGPUnFJH4DEQoOQXjGQCtTMtf GRUhTIV0WyN1NVXwFGYoJQ6NUlIqMTXcAVz5JIEuAW LoLZMolp0QTUZcCGTqUNL4HkVqAOAbRKThTRtjBRWeTIRtLAf8MAFiMZPwTW9HRrTeRSUgRzD6JVPvDD DaVVHudh9MLKIhZVNhKZW1EoEkPNDjGAOqXXhmLXNiZZTfDfPpYZDrYVKaXB0EOpBqLYCvAeC1IPFrEI MwZGQirp3GEEWyHSMwPuVnVxGwJVYfCNAeZXlgJIPh LMUjKdrnPFCkWOKzYH7ECzSwNNxtWOUUCks8EEweL6t1QZA3NC1FU1Kxq3RaLLXzVFNWYRcjEG4dirEr JODjMb2SB3cMXrzdTKY3GzQaScPxLgFgKWDaSCW6HNMbOrE1LLBbV7PqSh1vVWX7FdT3PUCyJGCoAAV1 DnH3XQf7TmDoUrr4GPQiBLWkGnOgVJ3KYr8JKyW4WXM9aXZpLb9QYiG4PgITHhKiAF8PSAi= ID Date Data Source [id number] 12/10/2020 11:11:00 AM EDT [facility] ([facility] Name Value Range Interpretation Code Description Data Susan rce(s) Supporting Document(s) White Blood Count 10.7 10 4.0-10.0 Above high normal [facility] ([facility] Red Blood Count 4.25 10 4.30-6.10 Below low normal [facility] ([facility] Hemoglobin 13.9 g/dL 13.5-17.5 Normal (applies to non-numeric resul ts) [facility] ([facility] Hematocrit 41.6 % 42.0-52.0 Below low normal [facility] ( [facility] Mean Corpuscular Volume 97.9 fl 80.0-96.0 Above high normal [facility] ([facility] Mean Corpuscular Hemoglobin 32.7 pg 27.0-33.0 Norm al (applies to non-numeric results) [facility] ([facility] ) Red Cell Distribution Width 14.1 % 11.5-14.5 Norm al (applies to non-numeric results) [facility] ([facility] ) Mean Corpuscular HGB Conc 33.4 g/dL 32.0-36.5 Normal (applies to non-numeric results) [facility] ([facility] ) Platelet Count, Automated 116 10 150-450 Below low normal [facility] ([facility] Neutrophils % 54.3 % 36.0-66.0 Normal (applies to non-numeric re sults) [facility] ([facility] Lymph % 7.0 % 24.0-44.0 Below low normal [facility] ( [facility] [place] % 33.2 % 2.0-8.0 Above high normal [facility] ([facility] Eos % 0.8 [...] normal [facility] ( [facility] [place] # 3.5 10 0.0-0.8 Above high normal [facility] ([facility] Baso # 0.0 10 0.0-0.2 Normal (applies to non-numeric resul ts) [facility] ([facility] Eos # 0.1 10 0.0-0.5 Normal (applies to non-numeric resul ts) [facility] ([facility] ID Date Data Source [id number] 12/10/2020 11:11:00 AM EDT [facility] Name Value Range Interpretation Code Description Data Susan rce(s) Supporting Document(s) Glucose, Fasting 129 mg/dL 70-100 Above high normal M [facility] ([facility] Blood Urea Nitrogen 14 mg/dL 7-18 Normal (applies to non-nume reid results) [facility] ([facility] Creatinine For GFR 0.79 mg/dL 0.70-1.30 Normal (applies to non -numeric results) [facility] ([facility] Glomerular Filtration Rate Laboratory test result Normal (applies to non- numeric results) [facility] ([facility] ) <content>Units are mL/min/1.73 m2</content>
<content></content>
<content>Chronic Kidney Disease Staging per NKF:</content>
<content></content>
<content>Stage I & II GFR >=60 Normal to Mildly Decreased</content>
<content>Stage III GFR 30- 59 Moderately Decreased</content>
<content>Stage IV GFR 15-29 Severely Decreased</content>
<content>Stage V GFR <15 Very Little GFR Left</content>
<content>ESRD GFR <15 on TUNNEL MINER</content>
<content></content> Potassium Serum 3.7 meq/L 3.5-5.1 Normal (applies to non-numeric results) [facility] ([facility] Sodium Level 135 meq/L 136-145 Below low normal [facility] ([facility] Carbon Dioxide Level 31 meq/L 21-32 Normal (applies to non-num mckenzie results) [facility] ([facility] Chloride Level 100 meq/L 98-107 Normal (applies to non-numeric r esults) [facility] ([facility] Anion Gap 4 meq/L 8-16 Below low normal [facility] ( [facility] Ast/Sgot 9 U/L 7-37 Normal (applies to non-numeric resul ts) [facility] ([facility] Calcium Level 9.9 mg/dL 8.8-10.2 Normal (applies to non-numeric re sults) [facility] ([facility] Alt/SGPT 13 U/L 12-78 Normal (applies to non-numeric resul ts) [facility] ([facility] Alkaline Phosphatase 75 U/L 45-117 Normal (applies to non-num mckenzie results) [facility] ([facility] Total Protein 7.7 GM/DL 6.4-8.2 Normal (applies to non-numeric re sults) [facility] ([facility] Bilirubin,Total 0.6 mg/dL 0.2-1.0 Normal (applies to non-numeric results) [facility] ([facility] Albumin 4.3 GM/DL 3.2-5.2 Normal (applies to non-numeric resul ts) [facility] ([facility] Albumin/Globulin Ratio 1.3 Normal (applies to non-n umeric results) [facility] ([facility] ID Date Data Source [id number] 12/10/2020 11:11:00 AM EDT [facility] Name Value Range Interpretation Code Description Data Susan rce(s) Supporting Document(s) Cancer Ag 19-9 [Units/volume] in Serum or Plasma 26113.8 U/ML Above high normal [facility] ([facility] ) THE CA 19-9 ASSAY IS PERFORMED ON THE [employer] BY CHEMILUMINESCENCE AND SHOULD NOT BE COMPARED INTERCHANGEABLY WITH OTHER METHODS. IT SHOULD NOT BE USED ALONE A SCREENING TEST OR DIAGNOSIS FOR THE PRESENCE OR ABSENCE OF MALIGNANT DISEASE. PREDICTIONS OF DISEASE RECURRENCE SHOULD NOT BE BASED SOLELY ON VALUES OBTAINED FROM SERIAL PATIENT SERUM VALUES. ID Date Data Source [id number] 12/10/2020 11:11:00 AM EDT [facility] ([facility] Name Value Range Interpretation Code Description Data Susan rce(s) Supporting Document(s) Blood Culture Laboratory test result [facility] ([facility] No growth after 72 hours . All specimens observed for 5 days. Results final at that time. No growth after 48 hours . All specimens observed for 5 days. Results final at that time. No growth after 24 hours . All specimens observed for 5 days. Results final at that time. NO GROWTH AFTER 5 DAYS ID Date Data Source [id number] 12/10/2020 11:10:00 AM EDT [facility] ([facility] Name Value Range Interpretation Code Description Data Susan rce(s) Supporting Document(s) Blood Culture Laboratory test result [facility] ([facility] No growth after 72 hours . All specimens observed for 5 days. Results final at that time. No growth after 48 hours . All specimens observed for 5 days. Results final at that time. No growth after 24 hours . All specimens observed for 5 days. Results final at that time. NO GROWTH AFTER 5 DAYS ID Date Data Source [id number] 11/10/2020 09:26:00 AM EDT [facility] ([facility] Name Value Range Interpretation Code Description Data Susan rce(s) Supporting Document(s) Laboratory test finding (navigational concept) Laboratory test r esult Normal (applies to non-numeric results) [facility] See Pathology Report Specimen Collection for Pathology Reference Lab Testing. Refer to [facility] Pathology Report for Results:[id number] Laboratory test finding (navigational concept) Laboratory test r esult Normal (applies to non-numeric results) [facility] ([facility] See Pathology Report Specimen Collection for Pathology Reference Lab Testing. Refer to [facility] Pathology Report for Results: [id number] ID Date Data Source [id number] 11/12/2020 02:00:[address] [facility] Cytogenetics ReportName: TRACE BEALMRN: [id number] Number: [id number] Date: 11/10/2020 00:00Received Date: 11/10/2020 15:01Physician(s): JASON ZARAGOZA MD HAGHIR, SHAHANDEH F,MDSpecimen(s) ReceivedA: Peripheral Blood (U-IF)Clinical [id number] patient with leukocytosis being evaluated for the BCR-QCG1apruzraehchfg. TEST REQUESTED/PERFORMED: Fluorescence in situ hybridization (FISH) [...] ES 3% 200 2O2% 0% 3% Vendor: *[employer] Probes: LSI: Locus Specific Probe; ES: Extra Signal; DCDF: Dual ColorDual Fusion Fluorochromes/ Signals: SG: Spectrum Green; SO: Spectrum Moffat; Y:Yellow (Fusion) NKCS: Signals with No Known [...] rce(s) Supporting Document(s) ID Date Data Source [id number] 11/06/2020 09:41:00 AM [facility] ([facility] Name Value Range Interpretation Code Description Data Susan rce(s) Supporting Document(s) Cancer Ag 19-9 [Units/volume] in Serum or Plasma 6514.9 U/ML Above high normal [facility] ([facility] ) THE CA 19-9 ASSAY IS PERFORMED ON THE [employer] BY CHEMILUMINESCENCE AND SHOULD NOT BE COMPARED INTERCHANGEABLY WITH OTHER METHODS. IT SHOULD NOT BE USED ALONE A SCREENING TEST OR DIAGNOSIS FOR THE PRESENCE OR ABSENCE OF MALIGNANT DISEASE. PREDICTIONS OF DISEASE RECURRENCE SHOULD NOT BE BASED SOLELY ON VALUES OBTAINED FROM SERIAL PATIENT SERUM VALUES. ID Date Data Source [id number] 11/06/2020 09:41:00 AM EDT [facility] ([facility] Name Value Range Interpretation Code Description Data Susna rce(s) Supporting Document(s) Glucose, Fasting 133 mg/dL 70-100 Above high normal M [facility] ([facility] Blood Urea Nitrogen 16 mg/dL 7-18 Normal (applies to non-nume reid results) [facility] ([facility] Creatinine For GFR 0.71 mg/dL 0.70-1.30 Normal (applies to non -numeric results) [facility] ([facility] Glomerular Filtration Rate Laboratory test result Normal (applies to non- numeric results) [facility] ([facility] ) <content>Units are mL/min/1.73 m2</content>
<content></content>
<content>Chronic Kidney Disease Staging per NKF:</content>
<content></content>
<content>Stage I & II GFR >=60 Normal to Mildly Decreased</content>
<content>Stage III GFR 30- 59 Moderately Decreased</content>
<content>Stage IV GFR 15-29 Severely Decreased</content>
<content>Stage V GFR <15 Very Little GFR Left</content>
<content>ESRD GFR <15 on TUNNEL MINER</content>
<content></content> Sodium Level 139 meq/L 136-145 Normal (applies to non-numeric res ults) [facility] ([facility] Potassium Serum 3.8 meq/L 3.5-5.1 Normal (applies to non-numeric results) [facility] ([facility] Chloride Level 104 meq/L 98-107 Normal (applies to non-numeric r esults) [facility] ([facility] Carbon Dioxide Level 26 meq/L 21-32 Normal (applies to non-num mckenzie results) [facility] ([facility] Calcium Level 8.9 mg/dL 8.8-10.2 Normal (applies to non-numeric re sults) [facility] ([facility] Anion Gap 9 meq/L 8-16 Normal (applies to non-numeric resul ts) [facility] ([facility] Ast/Sgot 18 U/L 7-37 Normal (applies to non-numeric resul ts) [facility] ([facility] Alt/SGPT 16 U/L 12-78 Normal (applies to non-numeric resul ts) [facility] ([facility] Alkaline Phosphatase 101 U/L 45-117 Normal (applies to non-num mckenzie results) [facility] ([facility] Bilirubin,Total 0.4 mg/dL 0.2-1.0 Normal (applies to non-numeric results) [facility] ([facility] Total Protein 7.1 GM/DL 6.4-8.2 Normal (applies to non-numeric re sults) [facility] Albumin 3.5 GM/DL 3.2-5.2 Normal (applies to non-numeric resul ts) [facility] ([facility] Albumin/Globulin Ratio 1.0 Normal (applies to non-n umeric results) [facility] ID Date Data Source [id number] 11/06/2020 09:41:00 AM EDT [facility] ([facility] Name Value Range Interpretation Code Description Data Susan rce(s) Supporting Document(s) White Blood Count 38.5 10 4.0-10.0 Above upper panic limits [facility] ([facility] Red Blood Count 3.71 10 4.30-6.10 Below low normal [facility] ([facility] Hemoglobin 12.0 g/dL 13.5-17.5 Below low normal [facility] ( [facility] Hematocrit 36.0 % 42.0-52.0 Below low normal [facility] ( [facility] Mean Corpuscular Volume 97.0 fl 80.0-96.0 Above high normal [facility] ([facility] Mean Corpuscular Hemoglobin 32.3 pg 27.0-33.0 Norm al (applies to non-numeric results) [facility] ([facility] ) Mean Corpuscular HGB Conc 33.3 g/dL 32.0-36.5 Normal (applies to non-numeric results) [facility] ([facility] ) Red Cell Distribution Width 13.8 % 11.5-14.5 Norm al (applies to non-numeric results) [facility] ([facility] ) Platelet Count, Automated 210 10 150-450 Normal (applies to non-numeric results) [facility] ([facility] ) Neutrophils % 62.7 % 36.0-66.0 Normal (applies to non-numeric re sults) [facility] ([facility] Lymph % 4.1 % 24.0-44.0 Below low normal [facility] ( [facility] [place] % 21.0 % 2.0-8.0 Above high normal [facility] ([facility] Eos % 0.1 % 0.0-3.0 Normal (applies to non-numeric resul ts) [facility] ([facility] Baso % 0.7 % 0.0-1.0 Normal (applies to non-numeric resul ts) [facility] ([facility] Immature Granulocyte % 11.4 % 0-3.0 Above high normal [facility] ([facility] Nucleated Red Blood Cell % 0.0 % 0-0 Normal (applies to n on-numeric results) [facility] ([facility] Neutrophils # 24.2 10 1.5-8.5 Above high normal [facility] ([facility] Lymph # 1.6 10 1.5-5.0 Normal (applies to non-numeric resul ts) [facility] ([facility] [place] # 8.1 10 0.0-0.8 Above high normal [facility] ([facility] Eos # 0.0 10 0.0-0.5 Normal (applies to non-numeric resul ts) [facility] ([facility] Baso # 0.3 10 0.0-0.2 Above high normal [facility] ([facility] ID Date Data Source [id number] 10/23/2020 06:42:00 AM EDT [facility] ([facility] Name Value Range Interpretation Code Description Data Susan rce(s) Supporting Document(s) Lactate [Mass/volume] in Serum or Plasma 3.0 mmol/L 0.4-2.0 Above upper panic limits [facility] ([facility] ) Y/N query for Sepsis Lactate Rule: Y ID Date Data Source [id number] 10/23/2020 06:42:00 AM EDT [facility] ([facility] Name Value Range Interpretation Code Description Data Susan rce(s) Supporting Document(s) Influenza A Amplification Laboratory test result Normal (applies to non- numeric results) [facility] ([facility] ) Negative results do not preclude influen za or RSV virus infection and should not be used as the sole basis for treatment or other patient management decisions. Influenza B Amplification Laboratory test result Normal (applies to non- numeric results) [facility] ([facility] ) Negative results do not preclude influen za or RSV virus infection and should not be used as the sole basis for treatment or other patient management decisions. RSV Amplification Laboratory test result Normal (applies to non-numeric results) [facility] ([facility] ) Negative results do not preclude influen za or RSV virus infection and should not be used as the sole basis for treatment or other patient management decisions. Laboratory test finding (navigational concept) Laboratory test r esult Normal (applies to non-numeric results) [facility] ([facility] A false negative result may [...] pathogens. DISCLAIMER: Testing was performed using the [employer] SARS-CoV-2 test. This test was developed and its performance characteristics determined by [employer]. This test has not been FDA cleared [...] or revoked sooner. ID Date Data Source [id number] 10/23/2020 06:42:00 AM EDT [facility] Name Value Range Interpretation Code Description Data Susan rce(s) Supporting Document(s) SARS coronavirus 2 RNA [Presence] in Res piratory specimen by DUSTIN with probe detection NEGATIVE [facility] This lab was ordered by [facility] a nd reported by [facility]. ID Date Data Source [id number] 10/23/2020 06:38:00 AM EDT [facility] ([facility] Name Value Range Interpretation [...] Little GFR Left</content>
<content>ESRD GFR <15 on TUNNEL MINER</content>
<content></content> Sodium Level 137 meq/L 136-145 Normal (applies to non-numeric res ults) [facility] ([facility] Chloride Level 102 meq/L 98-107 Normal (applies to non-numeric r esults) [facility] Potassium Serum 3.6 meq/L 3.5-5.1 Normal (applies to non-numeric results) [facility] Carbon Dioxide Level 24 meq/L 21-32 Normal (applies to non-num mckenzie results) [facility] ([facility] Anion Gap 11 meq/L 8-16 Normal (applies to non-numeric resul ts) [facility] Calcium Level 8.7 mg/dL 8.8-10.2 Below low normal [facility] ([facility] ID Date Data Source [id number] 10/23/2020 06:38:00 AM EDT [facility] ([facility] Name Value Range Interpretation Code Description Data Susan rce(s) Supporting Document(s) Prothrombin Time 15.9 s 12.7-14.5 Above high normal M [facility] ([facility] Inr 1.23 Normal (applies to non-numeric resul ts) [facility] [facility] THERAPUTIC HUMAN INR VALUES INDICATIONS NORMAL RANGES PROPHYLAXIS/TREATMENT OF: VENOUS THROMBOSIS 2.0-3.0 PULMONARY EMBOLISM 2.0-3.0 PREVENTION OF SYSTEMIC EMBOLISM FROM: TISSUE HEART VALVES 2.0-3.0 ACUTE MYOCARDIAL INFARCTION 2.0-3.0 VALVULAR HEART DISEASE 2.0-3.0 ATRIAL FIBRILLATION 2.0-3.0 MECHANICAL VALVES(HIGH RISK) 2.5-3.5 RECURRENT MYOCARDIAL INFARCTION 2.5-3.5 ID Date Data Source [id number] 10/23/2020 06:38:00 AM EDT [facility] ([facility] Name Value Range Interpretation Code Description Data Susan rce(s) Supporting Document(s) CPK Creatine Phosphokinase 24 U/L 39-308 Below low normal [facility] ([facility] CK-MB Value Mass Laboratory test result Normal ( applies to non-numeric results) [facility] ([facility] ) MB/CK Relative Index 4.17 Above high normal [facility] ([facility] <content>DIAGNOSIS CRITERIA</content>
<content>MMB ng/ml Relative Index (RI)</content>
<content>NON-AMI < or = 5 N/A</content>
<content>PRINCE ZONE > 5 < or = 4</content>
<content>AMI > 5 > 4</content>
<content></content> Troponin I 0.15 ng/mL Above high normal [facility] ([facility] <content>Troponin I Reference Interval f or Siemens [place] LOCI:</content>
<content></content>
<content>99th Percentile= 0.00-0.045 ng/ml</content>
<content></content>
<content>Risk Stratification:</content>
<content><= 0.10 ng/ml Decreased Risk for Adverse Clinical</content>
<content>Events.</content>
<content>0.10-1.50 ng/ml Increased Risk for Adverse Clinical</content>
<content>Events. Evaluation of additional</content>
<content>criterion and/or repeat testing in 2-6</content>
<content>hours is suggested to rule out myocardial</content>
<content>damage.</content>
<content>>= 1.50 ng/ml Indicative of Myocardial Injury.</content>
<content></content> ID Date Data Source [id number] 10/23/2020 06:38:00 AM EDT [facility] Name Value Range Interpretation Code Description Data Susan rce(s) Supporting Document(s) Alt/SGPT 17 U/L 12-78 Normal (applies to non-numeric resul ts) [facility] ([facility] Ast/Sgot 13 U/L 7-37 Normal (applies to non-numeric resul ts) [facility] ([facility] Alkaline Phosphatase 132 U/L 45-117 Above high normal [facility] ([facility] Bilirubin,Total 0.9 mg/dL 0.2-1.0 Normal (applies to non-numeric results) [facility] ([facility] Bilirubin,Direct 0.4 mg/dL 0.0-0.2 Above high normal M [facility] ([facility] Total Protein 5.9 GM/DL 6.4-8.2 Below low normal [facility] T ([facility] Albumin/Globulin Ratio 1.3 Normal (applies to non-n umeric results) [facility] ([facility] Albumin 3.3 GM/DL 3.2-5.2 Normal (applies to non-numeric resul ts) [facility] ([facility] ID Date Data Source [id number] 10/23/2020 06:38:00 AM EDT [facility] Name Value Range Interpretation Code Description Data Susan rce(s) Supporting Document(s) Natriuretic peptide.B prohormone N-Terminal [Mass/volu me] in Serum or Plasma 2080 pg/mL Above high normal [facility] ([facility] ID Date Data Source [id number] 10/23/2020 06:38:00 AM EDT [facility] ([facility] Name Value Range Interpretation Code Description Data Susan rce(s) Supporting Document(s) White Blood Count 23.5 10 4.0-10.0 Above high normal [facility] ([facility] A Pathologist review [...] % 42.0-52.0 Below low normal [facility] ( [facility] Mean Corpuscular Volume 94.0 fl 80.0-96.0 Normal ( applies to non-numeric results) [facility] Mean Corpuscular HGB Conc 35.0 g/dL 32.0-36.5 Normal (applies to non-numeric results) [facility] ([facility] ) Mean Corpuscular Hemoglobin 32.9 pg 27.0-33.0 Norm al (applies to non-numeric results) [facility] ([facility] Red Cell Distribution Width 12.2 % 11.5-14.5 Norm al (applies to non-numeric results) [facility] ([facility] ) Platelet Count, Automated 49 10 150-450 Below low normal [facility] ([facility] Nucleated Red Blood Cell % 0.1 % 0-0 Above high normal [facility] ([facility] ID Date Data Source [id number] 10/23/2020 06:38:00 AM EDT [facility] ([facility] Name Value Range Interpretation Code Description Data Susan rce(s) Supporting Document(s) Neutrophils 84 % 28-66 Above high normal [facility] ([facility] Lymphocytes 2 % 16-44 Below low normal [facility] ([facility] Bands 6 % Normal (applies to non-numeric resul ts) [facility] ([facility] RBC Morphology Laboratory test result Normal (applies to non-numeric results) [facility] ([facility] Monocytes 8 % 0-5 Above high normal [facility] ([facility] ID Date Data Source [id number] 10/23/2020 06:38:00 AM EDT [facility] ([facility] Name Value Range Interpretation Code Description Data Susan rce(s) Supporting Document(s) Platelets [#/volume] in Blood by Estimate Laboratory test result Normal (applies to non-numeric results) [facility] Platelets reticulated/100 platelets in Blood by Automated count 7.1 % 0.0-10.91 Normal (applies to non-numeric results) [facility] ([facility] ID Date Data Source [id number] 10/23/2020 06:38:00 AM EDT [facility] ([facility] Name Value Range Interpretation Code Description Data Susan rce(s) Supporting Document(s) aPTT in Platelet poor plasma by Coagulation assay 30.9 s 25.9-37.0 Normal (applies to non-numeric results) [facility] ID Date Data Source [id number] 10/23/2020 06:32:00 AM EDT [facility] ([facility] Name Value Range Interpretation Code Description Data Susan rce(s) Supporting Document(s) Laboratory test finding (navigational concept) 232 mg/dL 7 0-105 Above high normal [facility] ([facility] ) Laboratory test finding (navigational concept) 40.0 % 3 8.0-51.0 Normal (applies to non-numeric results) [facility] ([facility] Laboratory test finding (navigational concept) 136 meq/L 1 36-145 Normal (applies to non-numeric results) [facility] ([facility] Laboratory test finding (navigational concept) 3.6 meq/L 3 .5-5.1 Normal (applies to non-numeric results) [facility] ([facility] Laboratory test finding (navigational concept) 98 meq/L 9 8-109 Normal (applies to non-numeric results) [facility] ([facility] Laboratory test finding (navigational concept) 4.4 mg/dL 4 .5-5.3 Below low normal [facility] ([facility] ) Laboratory test finding (navigational concept) 20.0 MM/L 2 3.0-27.0 Below low normal [facility] ([facility] ) Laboratory test finding (navigational concept) 15 mg/dL 8 -26 Normal (applies to non-numeric results) [facility] ([facility]) Laboratory test finding (navigational concept) 0.9 mg/dL 0 .6-1.3 Normal (applies to non-numeric results) [facility] ([facility] ID Date Data Source [id number] 10/20/2020 05:29:08 PM EDT [facility] Name Value Range Interpretation Code Description Data Susan rce(s) Supporting Document(s) SODIUM 139 mmol/L (136-145) [facility] POTASSIUM 3.9 mmol/L (3.6-5.2) [facility] CHLORIDE 103 mmol/L (100-108) [facility] CO2 27 mmol/L (22-31) [facility] ANION GAP 9 mmol/L (7-16) [facility] UREA NITROGEN 12 mg/dL (7-24) [facility] CREATININE 0.86 mg/dL (0.80-1.30) [facility] BUN/CREAT RATIO 14.0 RATIO (10.0-20.0) [facility] GLUCOSE 104 mg/dL (70-99) H [facility] CALCIUM 8.6 mg/dL (8.4-10.2) [facility] GFR >60 ml/min/1.73m2 (>59) [facility] GFR ( AMER) >60 ml/min/1.73m2 (>59) [facility] GFR INTERPRETATION [facility] --NORMAL KIDNEY FUNCTION OR MILD DISEASE - GFR >OR= 60CHRONIC KIDNEY DISEASE - GFR 15 - 59RENAL FAILURE - GFR <15 Est. GFR calculation based on the MDRDstudy equation, which assumes a steadystate for creatinine. Est. GFR should notbe used for medication dosing. ID Date Data Source [id number] 10/20/2020 05:06:16 PM EDT [facility] Name Value Range Interpretation Code Description Data Susan rce(s) Supporting Document(s) WBC 18.5 10*3/uL (4.1-11.0) H [facility] RBC 4.03 10*6/uL (4.60-6.10) L [facility] HGB 13.2 g/dL (13.5-18.0) L [facility] HCT 38.3 % (41.0-53.0) L [facility] MCV 94.9 fL (80.0-95.0) [facility] MCH 32.8 pg (27.0-32.0) H [facility] MCHC 34.6 g/dL (32.0-36.0) [facility] RDW 12.7 % (10.5-14.5) [facility] PLT 54 10*3/uL (150-450) L [facility] MPV 9.9 fL (7.1-10.7) [facility] ID Date Data Source [id number] 10/20/2020 03:04:05 PM EDT [facility] INFORMATIONPatient MRN Name Date of Age Gend*PT [id number] Trace Beal W 1940 80 years M IPPT Location Admission Date/Time Visit ID Attending [id number] 10/19/20 0736 --- Jeovany Fletcher MD([id number]) EPI ID CSN Admitting Provider [id number] Jeovany Fletcher MD([id number])DISCHARGE SUMMARYAdmission Date: 10/19/2020ischarge date: 10/20/20PRINCIPAL DIAGNOSIS: Severe symptomatic aortic stenosis post successful TAVR.CURRENT [id number] man with severe symptomatic aortic stenosis and [...] Jeovany Fletcher, MDDate: October 20, 2020Time: 3:01 [facility]: Dr. Singer document or parts of this document, were dictated using [employer] software. A reasonable attempt at proofreading has been made tominimize errors. Please call with any questions or corrections. Name Value Range Interpretation Code Description Data Susan rce(s) Supporting Document(s) ID Date Data Source [id number] 10/20/2020 11:46:53 AM EDT [facility] Name Value Range Interpretation Code Description Data Susan rce(s) Supporting Document(s) &PDF [facility] FWUMGr7ySnLPOpEv16/IWEarLOBao7JsGOtmXNv9LHfyDPBfD6HpeZfrBLHQPLuSZYaPLUjSBnULSW1o oRX [file] AgICAgICAgICAgICAgICAgICAgICAgICAgICAgICAgICAgICAgICAgICAgICAgICAgICAgICAgICAgIC AgDQogICAgICAgICAgICAgICAgICAgICAgICAgICAg ICAgICAgICAgICAgICAgICAgICAgICAgICAgICAgICAgICAgICAgICAgICAgICAgICAgICAgICAgICAg ICAgICAgICAgICAgDQogICAgICAgICAgICAgICAgICAgICAgICAgICAgICAgICAgICAgICAgICAgICAg ICAgICAgICAgICAgICAgICAgICAgICAgICAgICAgIC AgICAgICAgICAgICAgICAgICAgICAgDQogICAgICAgICAgICAgICAgICAgICAgICAgICAgICAgICAgIC AgICAgICAgICAgICAgICAgICAgICAgICAgICAgICAgICAgICAgICAgICAgICAgICAgICAgICAgICAgIC AgICAgDQogICAgICAgICAgICAgICAgICAgICAgICAg ICAgICAgICAgICAgICAgICAgICAgICAgICAgICAgICAgICAgICAgICAgICAgICAgICAgICAgICAgICAg ICAgICAgICAgICAgICAgDQogICAgICAgICAgICAgICAgICAgICAgICAgICAgICAgICAgICAgICAgICAg ICAgICAgICAgICAgICAgICAgICAgICAgICAgICAgIC AgICAgICAgICAgICAgICAgICAgICAgICAgDQogICAgICAgICAgICAgICAgICAgICAgICAgICAgICAgIC AgICAgICAgICAgICAgICAgICAgICAgICAgICAgICAgICAgICAgICAgICAgICAgICAgICAgICAgICAgIC AgICAgICAgDQogICAgICAgICAgICAgICAgICAgICAg ICAgICAgICAgICAgICAgICAgICAgICAgICAgICAgICAgICAgICAgICAgICAgICAgICAgICAgICAgICAg ICAgICAgICAgICAgICAgICAgDQogICAgICAgICAgICAgICAgICAgICAgICAgICAgICAgICAgICAgICAg ICAgICAgICAgICAgICAgICAgICAgICAgICAgICAgIC AgICAgICAgICAgICAgICAgICAgICAgICAgICAgDQogICAgICAgICAgICAgICAgICAgICAgICAgICAgIC AgICAgICAgICAgICAgICAgICAgICAgICAgICAgICAgICAgICAgICAgICAgICAgICAgICAgICAgICAgIC TyPVFyOBZrJUAkPSw3G3rsQDEmCFChLE5hISk5Kq9+ JRnOVuXiYNS8liZvoH1KZB4pj2NvZPnnUGGsl7ZbPYg6XL3CVLZsRUtuDP0CAXubjd5VONCuSZVqwRUS h0ljTnNqBRW7PULiArofWA8XASXbP3vufzAtXKMbCOYHUIahGFYGNLioGGALXS5KGuErL6HsnC97PQYG Cj4+PPktteGsMzkKYtEdURRbz1KiNTw6VU7FYKOxCY gvAA3NBVRftO5tTFucWY6HPwY5ZVQeBMVNZjNwI73stSUpHSr2J8CfRjVrPKTrYvzgMVJtUKjdXmDiOD MgWyBdDQogID4+ID4+HZyzBL0ASMmwzsPrVNWsCr6OTIMwGAB2KOGjlXEqXBYkYUJIWCuxDM9CeFOfMA D3uQ8tHYzpTEBhKBMmR4aLScGwwTlpWL60nYauzbOd bCBdDQo+St6QII1xi9KrTSp0ydPzPWogSXZlTFgvCUMhPHNgCMAtDYY9BTA5YLGGLiRzILKpJLNpSKes DOBkNXRdbz9GKKJjAQE5UFI0UVHqWYSfEHHmADrfOQVeOOivKlNsENWcSQCgKC0MFrOnIFVpNVLpGVRr VBYrKLOqnb7XATVhXDZfHfl4SqWpBNUmQYIlPRnpZC GwEMP9NGlsYESqLAIpVG2IGbDbJCIyNMW4FDlfRCBzAODgqg7HKEMbPLLqNqY6SlWcTSKhKWDrLRbbEA EaQSQ8AJR5SUCmDSNlHJ1AEvJxLEEfCFj6JvNjHRGiTPZhic8BKDQtWDItRRX5YTJvAXTcICOdCOfaFP DtAIU4AMq2EXLsZYVeHK1YWdDoTLEpZSbkKpSnVZCu VWEuuo2EQGVlVMZhXEEoJRFzYYUxRNKtPXbeWBPfJHZgVxEpLRZoDTYcOB5MNoOpVTVmOID9MdBsTECy HDOedn0RWUWeMQAeKES7LfIyFZMlZYQrZZvsJPVuMMC9EUjsLVDsKIIyKT8ANdPmCSAdKMN4LCSiIXVv CGWpit0RZADwIVMjKbW9CPFvCSBpPNMyMSysKKYmLN R2UIogXCQtPQKoXD7JGlZhTWLmJPawJhUqYPHiUIAkey8MQAYsDZNnKvGnAKKlMVDyZUGeTJjdBNRjUV O8IYrtSGOjKXScRJ0HMgXuREEiOvX5TxxhJARfOWGjou9PLBNuYLJrSnmwGVRbFNEuVFSrWYykIAOyNK NgEMPdNWMfHSIkSU0JPsSvVNFpIaQ7TPAiPPZvGMPn wo2MLMWzFEJjOcX5KTLxOBQnHYAlRRqvLKLrELO1TSWqOZZgUUIfHN4EWnDnZTPnRXN8IifcHKHtXOHq gw3VKJWaVCN1TtM5MjZyEWRbPGIrTTzqJFHaOWF8PjVhPBXvQXZmIP9GTcNmDAKhSPG2CKNgEKOwSDTn zy9AVGTmPJU7JJL8NJOzIYUoBGDhUDezDOWaZOG2AO OyFNQnPHBqDY6MSxZuJAPnMcO4TKptZTIbGFZcyg1JWTBnRKD6DFpzIvThLSZfXIOjGWhhTTFxWWD0PX M2FCYoKITxPS3TKgFjCQOpTio7SkvvFHEtICQqpl1OUYQuEZH5GGP8JxXzYXApOJEdLRvhBWCvYRvtSv QxVIGeYAZnWK9QBdCuEDjuUTHOQxu8BSklC2v1GGU1 Ub8QI1Dhs1LrELEdGBLDQJfoET3zvaFhQWEdHe2VG1lVIha9JeMdEOWvMBUcTsHrXvo4AcZ6XWguKvBe CjYkKwD9MA5hFZn8GTC9XiU0VVKkCOUuVbV7VWR4EZPaEmSsDQC3TfqzJtKxJP4ICh4WUcG4QQX2xQDk Cp7WWzV4SQhTByIgQY7EQFa= ID Date Data Source [id number] 10/20/2020 01:53:17 AM EDT [facility] Name Value Range Interpretation Code Description Data Susan rce(s) Supporting Document(s) MAGNESIUM 2.1 mg/dL (1.7-2.4) [facility] ID Date Data Source [id number] 10/20/2020 01:29:05 AM EDT [facility] Name Value Range Interpretation Code Description Data Susan rce(s) Supporting Document(s) PT 12.1 s (9.2-11.9) H [facility] INR 1.16 [facility] IBARRA SUGGESTED THERAPEUTIC RANGES USING INR F ORSTABILIZED ANTICOAGULATED PATIENTS:STANDARD DOSE THERAPY INR 2.0-3.0 DVT, PE, PREVENT DVT OR EMBOLISMHIGH DOSE THERAPY INR 2.5-3.5 PREVENT EMBOLISM FROM MECHANICAL HEART VALVE ID Date Data Source [id number] 10/19/2020 04:14:40 PM EDT [address] [address]Eefhwlg Name: TRACE BEALDOB: 1940Sex: MOrdering Provider: JEOVANY Singh Prov: JEOVANY FLETCHERReferrbeulah Provider: Procedure Performed: / XR CHEST PORTABLEExam Date: 10/19/2020 15:47MRN: [id number] Number: [id number] Class: InpatientAccount #: [id number] for Exam: Post TAVR procedureTechnique: AP portable view obtained.Comparison: NoneFindings: Prosthetic aortic valve project over the cardiac silhouette.Port-A-Cath right chest wall extending to the right atrium.No pneumothorax, pleural effusion, he art failure, or airspace consolidation.Diffuse osteopenia.IMPRESSION: Status post TAVR.Report electronically signed by: MARGARET TERRELL On 10/19/2020 4:14 PMWorkstation ID: [id number] Name Value Range Interpretation Code Description Data Susan rce(s) Supporting Document(s) ID Date Data Source [id number] 10/19/2020 03:57:12 PM EDT [facility] INFORMATIONPatient MRN Name Date of Age Gend*PT [id number] Trace Beal 1940 80 years M IPPT Location Admission Date/Time Visit ID Attending [id number] 10/19/20 0736 --- Jeovany Fletcher MD([id number]) EPI ID CSN Admitting Provider [id number] Jeovany Fletcher MD([id number])TRANSCATHETER AORTIC VALVE REPLACEMENTCardiovascular and Thoracic Surgery Operative ReportDate of Procedure: 10/19/2020 Patient's PCP: CHARLENE MASCORROatient Name: Trace Beal 80 years maleDate of :1940MRN: [id number]: [id number]: [facility] Note Date and Time: 10/19/2020 3:54 PMDate of Admission: 10/19/2020 7:36 AMPreoperative diagnoses:1. Aortic sten osis, severe.Postoperative diagnoses:1. Aortic stenosis, severe.Procedure:1. Percutaneous access bilateral common femoral artery with 6 Haitian sheath.2. Perclose placement 2 right common femoral artery.3. Placement of right common femoral artery 14 Haitian E sheath.4. Aortic root angiogram.5. Aortic valve balloon valvuloplasty with Elia mm balloon.6. Placement of 26 mm María 3 aortic valve.Stratigrapher:HANNAH Mcknightardiac Surgeon:Jeffy Boyd MDAnesthesia:General AnesthesiaAnesthesia Provider(s):Anesthesiologist: García Hale, DOCRNA: Fermin Ballesteros, CRNAPerfusionist: Daniel Martinez CCPEstimated Blood Loss:100 mL.Implants:Implants Implant Valve,Thv,Sapien3,Ultra,26mm - [id number] - Implanted Valve Aortic Inventory item: VALVE,THV,SAPIEN3,ULTRA,26MM Model/Cat number: [id number] Serial number: [id number] Machine Feeder Raw Stock: [id number] Lot number: 07/12/2022 As of 10/19/2020 Status: ImplantedFindings:Post deployment valve well seated with no PLV.Fluoroscopy Time / Contrast Volume:Please see scanned Fish Warden Report.Description of Procedure:After informed consent was obtained [...] common Femoral Arteries were accessed and 6 Haitian sheaths placed. Theright sheath was then removed over a guidewire, and tw o separate Perclosedevices were then placed. An 8 Haitian sheath was then placed. The patient washeparinized [...] 8French sheath was removed and a 14 Haitian E sheath was placed over the stiffwire.Then [...] to PACU in stable condition.Jeffy Boyd MD [facility] FACSCardiovascular Thoracic Surgery10/19/2020, 3:54 PM Name Value Range Interpretation Code Description Data Susan rce(s) Supporting Document(s) ID Date Data Source [id number] 10/19/2020 06:43:33 PM EDT [facility] Name Value Range Interpretation Code Description Data Susan rce(s) Supporting Document(s) SODIUM 134 mmol/L (136-145) L [facility] POTASSIUM 3.9 mmol/L (3.6-5.2) [facility] CHLORIDE 100 mmol/L (100-108) [facility] CO2 24 mmol/L (22-31) [facility] ANION GAP 10 mmol/L (7-16) [facility] UREA NITROGEN 12 mg/dL (7-24) [facility] CREATININE 0.84 mg/dL (0.80-1.30) [facility] BUN/CREAT RATIO 14.3 RATIO (10.0-20.0) [facility] GLUCOSE 128 mg/dL (70-99) H [facility] CALCIUM 7.9 mg/dL (8.4-10.2) L [facility] GFR >60 ml/min/1.73m2 (>59) [facility] GFR ( AMER) >60 ml/min/1.73m2 (>59) [facility] GFR INTERPRETATION [facility] --NORMAL KIDNEY FUNCTION OR MILD DISEASE - GFR >OR= 60CHRONIC KIDNEY DISEASE - GFR 15 - 59RENAL FAILURE - GFR <15 Est. GFR calculation based on the MDRDstudy equation, which assumes a steadystate for creatinine. Est. GFR should notbe used for medication dosing. ID Date Data Source [id number] 10/19/2020 06:43:33 PM EDT [facility] Name Value Range Interpretation Code Description Data Susan rce(s) Supporting Document(s) MAGNESIUM 1.9 mg/dL (1.7-2.4) [facility] ID Date Data Source [id number] 10/19/2020 06:39:17 PM EDT [facility] Name Value Range Interpretation Code Description Data Susan rce(s) Supporting Document(s) WBC 14.2 10*3/uL (4.1-11.0) H [facility] RBC 4.13 10*6/uL (4.60-6.10) L [facility] HGB 13.7 g/dL (13.5-18.0) [facility] HCT 39.3 % (41.0-53.0) L [facility] MCV 95.2 fL (80.0-95.0) H [facility] MCH 33.1 pg (27.0-32.0) H [facility] MCHC 34.8 g/dL (32.0-36.0) [facility] RDW 12.7 % (10.5-14.5) [facility] PLT 55 10*3/uL (150-450) L [facility] MPV 9.6 fL (7.1-10.7) [facility] ID Date Data Source [id number] 10/19/2020 06:30:50 PM EDT [facility] Name Value Range Interpretation Code Description Data Susan rce(s) Supporting Document(s) PT 11.5 s (9.2-11.9) [facility] INR 1.10 [facility] SUGGESTED THERAPEUTIC RANGES USING INR F ORSTABILIZED ANTICOAGULATED PATIENTS:STANDARD DOSE THERAPY INR 2.0-3.0 DVT, PE, PREVENT DVT OR EMBOLISMHIGH DOSE THERAPY INR 2.5-3.5 PREVENT EMBOLISM FROM MECHANICAL HEART VALVE ID Date Data Source [id number] 10/19/2020 03:33:20 PM EDT [facility] Name Value Range Interpretation Code Description Data Susan rce(s) Supporting Document(s) EKG [facility] KQACVu7rPmEIFjBva3GrHhNcPXVlVA9sdki9T8K4iFEeN3YybHAfv3tcA8NuI1PcCQJeRXPBMO5HiLFz jb2 [file] quantitative manager/9qBtrf+bla2Z+X+FJkL167Pry6Jal7AjYaDb2j1KSe/2CsnQX/4VsuT87a+5IjOV3r6U+mIr7fPl [file] ID Date Data Source [id number] 10/19/2020 03:10:48 PM EDT [facility] Name Value Range Interpretation Code Description Data Susan rce(s) Supporting Document(s) &PDF [facility] ZKLZOp6eJlXNPbCk20/QDUhbKHVyb4BtUOaxVGc8PRkaIHXnS9UmhJahDQVHTYmMLIfGDTjIPyWOLQ7w oRX [file] PuB7K8SvJH6vFERQEw8+EDedaFQztTniKPPNLyZ0QgQqCCjiNXYQFi2I ID Date Data Source [id number] 10/19/2020 03:24:03 PM EDT [facility] NT INFORMATIONPatient MRN Name Date of Age Gend*PT [id number] Trace Beal 1940 80 years M IPPT Location Admission Date/Time Visit ID Attending [id number] 10/19/20 0736 --- Jeovany Fletcher MD([id number]) EPI ID CSN Admitting Provider [id number] Jeovany Fletcher MD([id number])TAVR (Transcatheter Aortic Valve Replacement)Patient Name: Trace BealMedical Record No: [id number] of : 1940 Age 80 yearsPrimary Physician: CHERYL MEYER MD PCP Oprb of Surgery: 10/19/2020Interventional Strategic Debriefing Officer: Laly Mcknight Valve Team: Dr. Boyd and [...] for preclosing. We upsized to a 14 Haitian Thorpe sheath overa Lunderquist wire. From the [...] low left side fillingpressure.4. Pancreatic cancer planning [place]. Plan1. Admit to telemetry2. Telemetry class I3. Access: Closed4. Pacemaker: Backup5. Anticoagulation: PlavixSignature: Jeovany Fletcher, MDDate: 10/19/2020Time: 3:15 PMCC: Dr. Singer document or parts of this document, were dictated using [employer] A reasonable attempt at proofreading has been made to minimize errors.Please call with any questions or corrections. Name Value Range Interpretation Code Description Data Susan rce(s) Supporting Document(s) ID Date Data Source [id number] 10/19/2020 02:52:29 PM EDT [facility] Name Value Range Interpretation Code Description Data Susan rce(s) Supporting Document(s) POC ACT 246 s (80-140) H [facility] PERFORMED BY [facility] CLINICAL STAFF ID Date Data Source [id number] 10/19/2020 02:49:57 PM EDT [facility] Name Value Range Interpretation Code Description Data Susan rce(s) Supporting Document(s) POC SOURCE [facility] CP BYPASS [facility] POC PH 7.49 pH (7.35-7.45) H [facility] POC PCO2 36.5 MMHG (32.0-48.0) [facility] POC PO2 553 MMHG (83-108) H [facility] POC SAT O2 100 % (95-99) H [facility] POC BASE EXCESS 5 MMOL/L (0-3) H [facility] POC HCO3 28.0 MMOL/L (21.0-29.0) [facility] POC TOTAL CO2 29 MMOL/L (23.0-32.0) [facility]FORMED BY [facility] POC HCT 38 % (41.0-53.0) L [facility] POC SODIUM 133 MMOL/L (136-145) L [facility] POC POTASSIUM 3.8 MMOL/L (3.6-5.2) [facility] POC IONIZED CALCIUM 4.3 MG/DL (4.6-5.3) L [facility] POC GLU 130 MG/DL (70-99) H [facility] PERFORM LAB [facility] ID Date Data Source [id number] 10/19/2020 02:17:21 PM EDT [facility] NT INFORMATIONPatient MRN Name Date of Age Gend*PT [id number] Trace Beal 1940 80 years M IPPT Location Admission Date/Time Visit ID Attending Provider --- --- --- --- EPI ID CSN Admitting Provider [id number] ---Introducer AdditionsPatient location during procedure: ORIndications for [...] changes to vital signs and catheter flushed [id number] NS Name Value Range Interpretation Code Description Data Susan rce(s) Supporting Document(s) ID Date Data Source [id number] 10/19/2020 02:16:55 PM EDT [facility] NT INFORMATIONPatient MRN Name Date of Age Gend*PT [id number] Trace Beal 1940 80 years M IPPT Location Admission Date/Time Visit ID Attending Provider --- --- --- --- EPI ID CSN Admitting Provider [id number] ---Central Line InsertionPatient location during procedure: ORIndications [...] changes to vital signs and catheter flushed [id number] NS Name Value Range Interpretation Code Description Data Susan rce(s) Supporting Document(s) ID Date Data Source [id number] 10/19/2020 02:12:46 PM [facility]T [facility]FORMATIONPatient [facility]N Name Date of Age Gend*PT [id number] Trace Beal W 1940 80 years M IPPT Location Admission Date/Time Visit ID Attending Provider --- --- --- --- EPI ID CSN Admitting Provider [id number] ---Arterial Line PlacementPatient location during procedure: ORIndications for arterial line: multiple ABGs and hemodynamic monitoringStaffingPerformed by: Fermin Ballesteros CRNAApproved by: Luke Delcidd: patient identified, risks and benefits discussed, surgical [...] rce(s) Supporting Document(s) ID Date Data Source [id number] 10/19/2020 02:12:20 PM [facility]T [facility]FORMATIONPatient MRN Name Date of Age Gend*PT [id number] Trace Beal 1940 80 years M IPPT Location Admission Date/Time Visit ID Attending Provider --- --- --- --- EPI ID CSN Admitting Provider [id number] ---AirwayPatient location during procedure: ORUrgency: electiveDifficult airway: [...] to lips: 21 cmPlacement verified by: + [id number] view: grade IIa - partial view of glottis Name Value Range Interpretation Code Description Data Susan rce(s) Supporting Document(s) ID Date Data Source [id number] 10/19/2020 02:13:05 PM EDT [facility] Name Value Range Interpretation Code Description Data Susan rce(s) Supporting Document(s) POC SOURCE [facility] CP BYPASS [facility] POC PH 7.47 pH (7.35-7.45) H [facility] POC PCO2 38.9 MMHG (32.0-48.0) [facility] POC PO2 448 MMHG (83-108) H [facility] POC SAT O2 100 % (95-99) H [facility] POC BASE EXCESS 4 MMOL/L (0-3) H [facility] POC HCO3 28.1 MMOL/L (21.0-29.0) [facility] POC TOTAL CO2 29 MMOL/L (23.0-32.0) [facility] PERFORMED BY [facility] CLINICAL STAFF POC HCT 39 % (41.0-53.0) L [facility] POC SODIUM 134 MMOL/L (136-145) L [facility] POC POTASSIUM 3.8 MMOL/L (3.6-5.2) [facility] POC IONIZED CALCIUM 4.4 MG/DL (4.6-5.3) L [facility] POC GLU 130 MG/DL (70-99) H [facility] PERFORM LAB [facility] ID Date Data Source [id number] 10/19/2020 02:13:00 PM EDT [facility] Name Value Range Interpretation Code Description Data Susan rce(s) Supporting Document(s) POC ACT 125 s (80-140) [facility] PERFORMED BY [facility] ID Date Data Source [id number] 10/19/2020 02:03:51 PM EDT [facility] NT INFORMATIONPatient MRN Name Date of Age Gend*PT [id number] Emigdio Trace W 1940 80 years M IPPT Location Admission Date/Time Visit ID Attending Provider10/19/20 0736 --- Jeovany Fletcher MD([id number]) EPI ID CSN Admitting Provider [id number] Jeovany Fletcher MD([id number]) Attestation signed by Jeovany Fletcher MD at [...] fatigue,dyspnea and dizziness. He follows with his dining services director, Dr. Coronado, and had anechocardiogram that revealed [...] Abnormal Doppler [facility] of carotid [facility] 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 Smoking status: Former Smoker [...] AdmissionMedication Sig Cholecalciferol (VITAMIN D) 50 MCG (1999 UT) tablet Take 2,000 Units by mouthdaily DAILY MARCELLE (THERAGRAN) per tablet Take 1 tablet by mouth daily Flaxseed, Linseed, (FLAX PO) Take by mouth Iodine, Kelp, (KELP PO) Take by mouth aspirin EC 81 MG EC tablet Take 1 tablet (81 mg total) by mouth daily Scheduled Meds: ceFAZolin (ANCEF) IV 2 g Intravenous Database Software Technician normal saline flush 3 mL Intravenous Q8H [...] rce(s) Supporting Document(s) ID Date Data Source [id number] 10/20/2020 10:34:57 AM EDT [facility] SPEC EXP DATE 1PATI ENT ABO/Rh O POSITIVEANTIBODY SCREEN NEGATIVETESTING SITE PERFORMED AT [address] [place] [address] [id number] NUMBER [id number] COMPONENT TYPE LEUKOPOOR RED CELLS (PT B)UNIT DIVISION 00STATUS OF UNIT REL FROM ALLOCTRANSFUSION STATUS OK TO TRANSFUSECROSSMATCH RESULT COMPATIBLEUNIT NUMBER [id number] COMPONENT TYPE LEUKOPOOR RED CELLS (PT B)UNIT DIVISION 00STATUS OF UNIT REL FROM ALLOCTRANSFUSION STATUS OK TO TRANSFUSECROSSMATCH RESULT COMPATIBLE Name Value Range Interpretation Code Description Data Susan rce(s) Supporting Document(s) TYPE AND SCREEN [facility] ID Date Data Source [id number] 10/19/2020 10:57:22 AM EDT [facility] Name Value Range Interpretation Code Description Data Susan rce(s) Supporting Document(s) HEMOGLOBIN A1C @ 6.1 % (4.0-6.0) H [facility] Performed using Siemens [place] immunoassa y.Care must be taken when interpreting [id number] in patients with a hemoglobin variantor decreased erythrocyte lifespan. Values 5.7 - 6.4% suggest prediabetes.Values >=6.5% are diagnostic for diabetes.REFERENCE: DIABETES CARE 2018: 41(S13-S27).PERFORMED AT [address] [place] [address] EST AVERAGE GLUCOSE 128 mg/dL [facility] ID Date Data Source [id number] 10/19/2020 10:53:36 AM EDT [facility] Name Value Range Interpretation Code Description Data Susan rce(s) Supporting Document(s) PT 10.9 s (9.2-11.9) [facility] IN[facility] 1.04 [facility] SUGGESTED THERAPEUTIC RANGES USING INR F ORSTABILIZED ANTICOAGULATED PATIENTS:STANDARD DOSE THERAPY INR 2.0-3.0 DVT, PE, PREVENT DVT OR EMBOLISMHIGH DOSE THERAPY INR 2.5-3.5 PREVENT EMBOLISM FROM MECHANICAL HEART VALVE ID Date Data Source [id number] 10/19/2020 10:43:15 AM EDT [facility] Name Value Range Interpretation Code Description Data Susan rce(s) Supporting Document(s) ROOM TEMP AB SCREEN [facility] ROOM TEMP AB SCREEN NEGATIVE ID Date Data Source [id number] 10/19/2020 10:40:34 AM EDT [facility] Name Value Range Interpretation Code Description Data Susan rce(s) Supporting Document(s) NT PRO BNP 1082 pg/mL (0-450) H [facility] ID Date Data Source [id number] 10/19/2020 10:40:29 AM EDT [facility] Name Value Range Interpretation Code Description Data Susan rce(s) Supporting Document(s) MAGNESIUM 1.9 mg/dL (1.7-2.4) [facility] ID Date Data Source [id number] 10/19/2020 10:40:29 AM EDT [facility] Name Value Range Interpretation Code Description Data Susan rce(s) Supporting Document(s) SODIUM 137 mmol/L (136-145) [facility] POTASSIUM 3.9 mmol/L (3.6-5.2) [facility] CHLORIDE 100 mmol/L (100-108) [facility] CO2 29 mmol/L (22-31) [facility] ANION GAP 8 mmol/L (7-16) [facility] UREA NITROGEN 12 mg/dL (7-24) [facility] CREATININE 0.84 mg/dL (0.80-1.30) [facility] BUN/CREAT RATIO 14.3 RATIO (10.0-20.0) [facility] GLUCOSE 135 mg/dL (70-99) H [facility] CALCIUM 8.7 mg/dL (8.4-10.2) [facility] TOTAL PROTEIN 7.1 g/dL (6.4-8.2) [facility] ALBUMIN 4.3 g/dL (3.2-4.5) [facility] GLOBULIN 2.8 g/dL (2.7-4.3) [facility] ALB/GLOB RATIO 1.5 RATIO [facility] ALKALINE PHOSPHATASE 155 U/L (45-117) H [facility] BILIRUBIN,TOTAL 0.7 mg/dL (0.0-1.0) [facility] PLEASE NOTE:Total bilirubin results may be falselyelevated in patients taking Eltrombopag. AST (SGOT) <5 U/L (11-39) L [facility] ALT (SGPT) 16 U/L (12-78) [facility] GFR >60 ml/min/1.73m2 (>59) [facility] GFR ( AMER) >60 ml/min/1.73m2 (>59) [facility] GFR INTERPRETATION [facility] --NORMAL KIDNEY FUNCTION OR MILD DISEASE - GFR >OR= 60CHRONIC KIDNEY DISEASE - GFR 15 - 59RENAL FAILURE - GFR <15 Est. GFR calculation based on the MDRDstudy equation, which assumes a steadystate for creatinine. Est. GFR should notbe used for medication dosing. ID Date Data Source [id number] 10/19/2020 10:31:39 AM EDT [facility] Name Value Range Interpretation Code Description Data Susan rce(s) Supporting Document(s) WBC 22.6 10*3/uL (4.1-11.0) H [facility] RBC 4.66 10*6/uL (4.60-6.10) [facility] HGB 15.1 g/dL (13.5-18.0) [facility] HCT 44.7 % (41.0-53.0) [facility] MCV 96.0 fL (80.0-95.0) H [facility] MCH 32.4 pg (27.0-32.0) H [facility] MCHC 33.7 g/dL (32.0-36.0) [facility] RDW 13.1 % (10.5-14.5) [facility] PLT 66 10*3/uL (150-450) L [facility] MPV 10.2 fL (7.1-10.7) [facility] ID Date Data Source [id number] 10/19/2020 08:48:54 AM EDT [facility] Name Value Range Interpretation Code Description Data Susan rce(s) Supporting Document(s) POC NOVA GLU 122 mg/dL (70-99) H [facility] ID Date Data Source [id number] 10/15/2020 10:30:00 AM EDT [facility] ([facility] Name Value Range Interpretation Code Description Data Susan rce(s) Supporting Document(s) Laboratory test finding (navigational concept) Laboratory test result [facility] ([facility] ASSAY INFORMATION: Real Time RT-PCR NOTE: The COVID-19 assay has been cleared by the U.S. Food and Drug Administration under the Emergency Use Authorization (EUA). [facility] and [facility] are designated as high complexity laboratories by the Clinical Laboratory Improvement Amendments of 1988(CLIA) and are qualified to perform this test. Not Detected ID Date Data Source [id number] 10/08/2020 08:24:00 AM EDT [facility] ([facility] Name Value Range Interpretation Code Description Data Susan rce(s) Supporting Document(s) White Blood Count 9.8 10 4.0-10.0 Normal (applies to non-numeri c results) [facility] ([facility] A Pathologist review of this differentia l can help in the evaluation of a differential diagnosis. Please order a Pathologist Review (PERISM) if deemed necessary. Results are subject to change if a Pathologist Review is performed. Red Blood Count 4.82 10 4.30-6.10 Normal (applies to non-numeric results) [facility] ([facility] Hemoglobin 15.4 g/dL 13.5-17.5 Normal (applies to non-numeric resul ts) [facility] ([facility] Hematocrit 46.3 % 42.0-52.0 Normal (applies to non-numeric resul ts) [facility] ([facility] Mean Corpuscular Volume 96.1 fl 80.0-96.0 Above high normal [facility] ([facility] Mean Corpuscular Hemoglobin 32.0 pg 27.0-33.0 Norm al (applies to non-numeric results) [facility] ([facility] ) Red Cell Distribution Width 12.4 % 11.5-14.5 Norm al (applies to non-numeric results) [facility] ([facility] ) Mean Corpuscular HGB Conc 33.3 g/dL 32.0-36.5 Normal (applies to non-numeric results) [facility] ([facility] ) Platelet Count, Automated 161 10 150-450 Normal (applies to non-numeric results) [facility] ([facility] ) Lymph % 8.1 % 24.0-44.0 Below low normal [facility] ( [facility] Neutrophils % 53.2 % 36.0-66.0 Normal (applies to non-numeric re sults) [facility] ([facility] [place] % 34.9 % 2.0-8.0 Above high normal [facility] ([facility] Eos % 1.0 % 0.0-3.0 Normal (applies to non-numeric resul ts) [facility] ([facility] Baso % 0.3 % 0.0-1.0 Normal (applies to non-numeric resul ts) [facility] ([facility] Immature Granulocyte % 2.5 % 0-3.0 Normal (applies to non-n umeric results) [facility] ([facility] Nucleated Red Blood Cell % 0.0 % 0-0 Normal (applies to n on-numeric results) [facility] ([facility] Neutrophils # 5.2 10 1.5-8.5 Normal (applies to non-numeric re sults) [facility] ([facility] Lymph # 0.8 10 1.5-5.0 Below low normal [facility] ( [facility] Eos # 0.1 10 0.0-0.5 Normal (applies to non-numeric resul ts) [facility] ([facility] [place] # 3.4 10 0.0-0.8 Above high normal [facility] ([facility] Baso # 0.0 10 0.0-0.2 Normal (applies to non-numeric resul ts) [facility] ([facility] ID Date Data Source [id number] 10/08/2020 08:24:00 AM EDT [facility] ([facility] Name Value Range Interpretation Code Description Data Susan rce(s) Supporting Document(s) Glucose, Fasting 131 mg/dL 70-100 Above high normal M [facility] ([facility] Blood Urea Nitrogen 15 mg/dL 7-18 Normal (applies to non-nume reid results) [facility] ([facility] Glomerular Filtration Rate Laboratory test result Normal (applies to non- numeric results) [facility] ([facility] ) <content>Units are mL/min/1.73 m2</content>
<content></content>
<content>Chronic Kidney Disease Staging per NKF:</content>
<content></content>
<content>Stage I & II GFR >=60 Normal to Mildly Decreased</content>
<content>Stage III GFR 30- 59 Moderately Decreased</content>
<content>Stage IV GFR 15-29 Severely Decreased</content>
<content>Stage V GFR <15 Very Little GFR Left</content>
<content>ESRD GFR <15 on TUNNEL MINER</content>
<content></content> Creatinine For GFR 0.73 mg/dL 0.70-1.30 Normal (applies to non -numeric results) [facility] ([facility] Sodium Level 139 meq/L 136-145 Normal (applies to non-numeric res ults) [facility] ([facility] Potassium Serum 4.3 meq/L 3.5-5.1 Normal (applies to non-numeric results) [facility] ([facility] Chloride Level 103 meq/L 98-107 Normal (applies to non-numeric r esults) [facility] ([facility] Anion Gap 6 meq/L 8-16 Below low normal [facility] ( [facility] Carbon Dioxide Level 30 meq/L 21-32 Normal (applies to non-num mckenzie results) [facility] ([facility] Calcium Level 9.1 mg/dL 8.8-10.2 Normal (applies to non-numeric re sults) [facility] ([facility] Ast/Sgot 10 U/L 7-37 Normal (applies to non-numeric resul ts) [facility] ([facility] Alt/SGPT 19 U/L 12-78 Normal (applies to non-numeric resul ts) [facility] ([facility] Alkaline Phosphatase 65 U/L 45-117 Normal (applies to non-num mckenzie results) [facility] ([facility] Bilirubin,Total 0.8 mg/dL 0.2-1.0 Normal (applies to non-numeric results) [facility] ([facility] Total Protein 6.9 GM/DL 6.4-8.2 Normal (applies to non-numeric re sults) [facility] ([facility] Albumin 4.4 GM/DL 3.2-5.2 Normal (applies to non-numeric resul ts) [facility] ([facility] Albumin/Globulin Ratio 1.8 Normal (applies to non-n umeric results) [facility] ([facility] ID Date Data Source [id number] 10/08/2020 08:24:00 AM EDT [facility] ([facility] Name Value Range Interpretation Code Description Data Susan rce(s) Supporting Document(s) Cancer Ag 19-9 [Units/volume] in Serum or Plasma 6310.2 U/ML Above high normal [facility] ([facility] ) THE CA 19-9 ASSAY IS PERFORMED ON THE ZolaAUR BY CHEMILUMINESCENCE AND SHOULD NOT BE COMPARED INTERCHANGEABLY WITH OTHER METHODS. IT SHOULD NOT BE USED ALONE A SCREENING TEST OR DIAGNOSIS FOR THE PRESENCE OR ABSENCE OF MALIGNANT DISEASE. PREDICTIONS OF DISEASE RECURRENCE SHOULD NOT BE BASED SOLELY ON VALUES OBTAINED FROM SERIAL PATIENT SERUM VALUES. ID Date Data Source [id number] 09/25/2020 11:14:00 AM EDT [facility] Name Value Range Interpretation Code Description Data Susan rce(s) Supporting Document(s) Cancer Ag 19-9 [Units/volume] in Serum or Plasma 5746.2 U/ML Above high normal [facility] ([facility] ) THE CA 19-9 ASSAY IS PERFORMED ON THE [place] BY CHEMILUMINESCENCE AND SHOULD NOT BE COMPARED INTERCHANGEABLY WITH OTHER METHODS. IT SHOULD NOT BE USED ALONE A SCREENING TEST OR DIAGNOSIS FOR THE PRESENCE OR ABSENCE OF MALIGNANT DISEASE. PREDICTIONS OF DISEASE RECURRENCE SHOULD NOT BE BASED SOLELY ON VALUES OBTAINED FROM SERIAL PATIENT SERUM VALUES. ID Date Data Source [id number] 09/18/2020 07:43:00 AM EDT [facility] ([facility] Name Value Range Interpretation Code Description Data Susan rce(s) Supporting Document(s) Glucose, Fasting 120 mg/dL 70-100 Above high normal M [facility] ([facility] Blood Urea Nitrogen 13 mg/dL 7-18 Normal (applies to non-nume reid results) [facility] ([facility] Creatinine For GFR 0.74 mg/dL 0.70-1.30 Normal (applies to non -numeric results) [facility] ([facility] Glomerular Filtration Rate Laboratory test result Normal (applies to non- numeric results) [facility] ([facility] ) <content>Units are mL/min/1.73 m2</content>
<content></content>
<content>Chronic Kidney Disease Staging per NKF:</content>
<content></content>
<content>Stage I & II GFR >=60 Normal to Mildly Decreased</content>
<content>Stage III GFR 30- 59 Moderately Decreased</content>
<content>Stage IV GFR 15-29 Severely Decreased</content>
<content>Stage V GFR <15 Very Little GFR Left</content>
<content>ESRD GFR <15 on TUNNEL MINER</content>
<content></content> Potassium Serum 4.1 meq/L 3.5-5.1 Normal (applies to non-numeric results) [facility] ([facility] Sodium Level 140 meq/L 136-145 Normal (applies to non-numeric res ults) [facility] ([facility] Chloride Level 106 meq/L 98-107 Normal (applies to non-numeric r esults) [facility] ([facility] Carbon Dioxide Level 29 meq/L 21-32 Normal (applies to non-num mckenzie results) [facility] ([facility] Anion Gap 5 meq/L 8-16 Below low normal [facility] ( [facility] Calcium Level 8.8 mg/dL 8.8-10.2 Normal (applies to non-numeric re sults) [facility] Ast/Sgot 10 U/L 7-37 Normal (applies to non-numeric resul ts) [facility] ([facility] Alt/SGPT 20 U/L 12-78 Normal (applies to non-numeric resul ts) [facility] ([facility] Bilirubin,Total 0.7 mg/dL 0.2-1.0 Normal (applies to non-numeric results) [facility] ([facility] Alkaline Phosphatase 56 U/L 45-117 Normal (applies to non-num mckenzie results) [facility] ([facility] Total Protein 6.5 GM/DL 6.4-8.2 Normal (applies to non-numeric re sults) [facility] ([facility] Albumin/Globulin Ratio 1.7 Normal (applies to non-n umeric results) [facility] ([facility] Albumin 4.1 GM/DL 3.2-5.2 Normal (applies to non-numeric resul ts) [facility] ([facility] ID Date Data Source [id number] 09/18/2020 07:43:00 AM EDT [facility] Name Value Range Interpretation Code Description Data Susan rce(s) Supporting Document(s) White Blood Count 8.0 10 4.0-10.0 Normal (applies to non-numeri c results) [facility] ([facility] A Pathologist review of [...] normal [facility] ( [facility] [place] % 37.8 % 2.0-8.0 Above high normal [...] Normal (applies to n on-numeric results) [facility] ([facility] Lymph # 0.9 10 1.5-5.0 Below low normal [facility] ( [facility] [place] # 3.0 10 0.0-0.8 Above high normal [facility] ([facility] Baso # 0.0 10 0.0-0.2 Normal (applies to non-numeric resul ts) [facility] ([facility] Eos # 0.1 10 0.0-0.5 Normal (applies to non-numeric resul ts) [facility] ([facility] ID Date Data Source [id number] 09/09/2020 11:37:00 AM EDT Thao boucher Exam Number: [id number] OF EXAMINATIO N: 09/09/2020 8:42 EDTPET/CT HEAD [...] rce(s) Supporting Document(s) ID Date Data Source [id number] 09/04/2020 09:02:00 AM EDT [facility] ([facility] Name Value Range Interpretation Code Description Data Susan rce(s) Supporting Document(s) Glu 128 mg/dL 70-110 Above high normal [facility] ([facility] CHRONIC KIDNEY DISEASE [...] YEARS EXCLUSIVE. Creat 0.7 mg/dL 0.7-1.2 [facility] ([facility] CHRONIC KIDNEY [...] 2-19 YEARS EXCLUSIVE. BUN 16 mg/dL 8-23 [facility] ([facility] CHRONIC KIDNEY [...] YEARS EXCLUSIVE. BUN/Creatinine Ratio 21.1 CALC [facility] ([facility] CHRONIC KIDNEY DISEASE [...] YEARS EXCLUSIVE. K 4.4 mmol/L 3.5-5.1 [facility] ([facility] CHRONIC KIDNEY DISEASE [...] 2-19 YEARS EXCLUSIVE. Na 139 mmol/L 136-145 [facility] CHRONIC KIDNEY DISEASE STAGING PER [...] YEARS EXCLUSIVE. CL 102.2 mmol/L 98.0-107.0 [facility] ([facility] CHRONIC KIDNEY DISEASE STAGING [...] YEARS EXCLUSIVE. Alb 4.9 g/dL 3.5-5.2 [facility] ([facility] [...] YEARS EXCLUSIVE. A/G Ratio 3.3 CALC [facility] ([facility] [...] YEARS EXCLUSIVE. Alt (SGPT) 9 U/L 0-41 [facility] CHRONIC KIDNEY [...] YEARS EXCLUSIVE. Tbili 0.44 mg/dL 0.0-1.2 [facility] ([facility] CHRONIC KIDNEY DISEASE STAGING PER [...] 2-19 YEARS EXCLUSIVE. Anion Gap 16 mmol/L [facility] CHRONIC KIDNEY [...] INDIVIDUALA AGED 2-19 YEARS EXCLUSIVE. eGFR Non-Afr. [place] 89 # [facility] ([facility] [...] 2-19 YEARS EXCLUSIVE. ID Date Data Source [id number] 09/04/2020 09:02:00 AM EDT [facility] ([employer] [facility] Name Value Range Interpretation Code Description Data Susan rce(s) Supporting Document(s) Hemoglobin A1c/Hemoglobin.total in Blood 6.1 % 4.50-6.20 [facility] ([facility] ID Date Data Source [id number] 09/04/2020 09:02:00 AM EDT [facility] ([employer] [facility] Name Value Range Interpretation Code Description Data Susan rce(s) Supporting Document(s) Chol 171 mg/dL 0-200 [facility] ([facility] CHRONIC KIDNEY DISEASE STAGING PER [...] in Serum or Plasma 53 mg/dL 35-55 [facility] CHRONIC KIDNEY DISEASE [...] 2-19 YEARS EXCLUSIVE. Cho/HDL Ratio 3.2 CALC MEDKIMBERLEE ([facility] CHRONIC KIDNEY DISEASE STAGING [...] YEARS EXCLUSIVE. LDL_C 106 Calc 75-129 [facility] ([facility] CHRONIC KIDNEY [...] 2-19 YEARS EXCLUSIVE. ID Date Data Source [id number] 08/31/2020 01:46:00 PM EDT [facility] ([facility] Name Value Range Interpretation Code Description Data Susan rce(s) Supporting Document(s) Glucose, Fasting 136 mg/dL 70-100 Above high normal M EDENT ([facility] Blood Urea Nitrogen 18 mg/dL 7-18 Normal (applies to non-nume reid results) [facility] ([facility] Creatinine For GFR 0.86 mg/dL 0.70-1.30 Normal (applies to non -numeric results) [facility] ([facility] Sodium Level 139 meq/L 136-145 Normal (applies to non-numeric res ults) [facility] ([facility] Glomerular Filtration Rate Laboratory test result Normal (applies to non- numeric results) [facility] ([facility] ) <content>Units are mL/min/1.73 m2</content>
<content></content>
<content>Chronic Kidney Disease Staging per NKF:</content>
<content></content>
<content>Stage I & II GFR >=60 Normal to Mildly Decreased</content>
<content>Stage III GFR 30- 59 Moderately Decreased</content>
<content>Stage IV GFR 15-29 Severely Decreased</content>
<content>Stage V GFR <15 Very Little GFR Left</content>
<content>ESRD GFR <15 on TUNNEL MINER</content>
<content></content> Potassium Serum 4.1 meq/L 3.5-5.1 Normal (applies to non-numeric results) [facility] ([facility] Chloride Level 106 meq/L 98-107 Normal (applies to non-numeric r esults) [facility] ([facility] Carbon Dioxide Level 26 meq/L 21-32 Normal (applies to non-num mckenzie results) [facility] Anion Gap 7 meq/L 8-16 Below low normal [facility] Ast/Sgot 11 U/L 7-37 Normal (applies to non-numeric resul ts) [facility] ([facility] Calcium Level 9.2 mg/dL 8.8-10.2 Normal (applies to non-numeric re sults) [facility] ([facility] Alkaline Phosphatase 60 U/L 45-117 Normal (applies to non-num mckenzie results) [facility] ([facility] Alt/SGPT 14 U/L 12-78 Normal (applies to non-numeric resul ts) [facility] ([facility] Bilirubin,Total 0.7 mg/dL 0.2-1.0 Normal (applies to non-numeric results) [facility] ([facility] Total Protein 6.8 GM/DL 6.4-8.2 Normal (applies to non-numeric re sults) [facility] ([facility] Albumin 4.4 GM/DL 3.2-5.2 Normal (applies to non-numeric resul ts) [facility] ([facility] Albumin/Globulin Ratio 1.8 Normal (applies to non-n umeric results) [facility] ([facility] ID Date Data Source [id number] 08/31/2020 01:46:00 PM EDT [facility] ([facility] Name Value Range Interpretation Code Description Data Susan rce(s) Supporting Document(s) White Blood Count 9.6 10 4.0-10.0 Normal (applies to non-numeri c results) [facility] ([facility] A Pathologist review of [...] normal [facility] ( [facility] [place] % 37.0 % 2.0-8.0 Above high normal [...] Normal (applies to n on-numeric results) [facility] ([facility] Neutrophils # 5.2 10 1.5-8.5 Normal (applies to non-numeric re sults) [facility] ([facility] Lymph # 0.7 10 1.5-5.0 Below low normal [facility] ( [facility] Eos # 0.1 10 0.0-0.5 Normal (applies to non-numeric resul ts) [facility] ([facility] [place] # 3.6 10 0.0-0.8 Above high normal [facility] ([facility] Baso # 0.0 10 0.0-0.2 Normal (applies to non-numeric resul ts) [facility] ([facility] ID Date Data Source [id number] 08/18/2020 03:07:58 PM EDT [facility] [place] [facility] LAB[facility]ATORY [facility] OF [address] [address]Nwf# Surgical Pathology ReportPatient Name: TRACE BEAL: 1940Accession [...] of tissue. Entirely submitted as A1. Multilevel. jgllmjimy/luisat Reported: 08/18/2020Electronically Signed Out By Denise Luque MD [facility] [place], [place] [address]tmrFaghqwqxz component performed [facility], [address], [place], [address].[facility] at [facility], [address], [place], [address]. This report may includeimmunohistochemical or in-situ hybridization results. Testing wasdeveloped and the performance characteristics determined by [facility] as required by CLIA '88. The FDA hasdetermined that approval for specific use is not necessary for clinicaluse. The quality of Hematoxylin and Eosin stains and as applicable, forall immunohistochemical and/or special stains, including positive andnegative controls, were reviewed and considered appropriate.ICD codes K86.9CPT codesA: 19499G Name Value Range Interpretation Code Description Data Susan rce(s) Supporting Document(s) ID Date Data Source [id number] 08/12/2020 10:55:00 AM EDT [facility] NT INFORMATIONPatient MRN Name Date of Age Gend*PT [id number] Trace Beal 1940 80 years M OPPT Location Admission Date/Time Visit ID [facility] [place] [facility]/12/20 0741 --- Jose Netwon DO([id number]) EPI ID CSN Admitting Provider [id number] Jose Newton DO([id number])Endoscopic Gastroduodenoscopy with Endoscopic Ultrasound Procedure NotePatient: Trace [...] Setting High Applied By Endoscope ENDOSCOPE PENTAX [id number] Jose Newton DO ERCP Scope (ENDO) Radial Endoscope Ultrasound (ENDO) ENDOSCOPE RADIAL ULTRASOUND ([facility] ENDO)[id number] Jose Newton DO Linear Endoscope Ultrasound (ENDO) [...] ofintervening blood vessels. Using a 22 gauge Corsair Acquired EUSaspiration needle, two needle passes were [...] Tissue FNA SURGICAL PATHOLOGY EXAM Jose Newton DO08/12/2020 1034Complications: None; patient tolerated the procedure well.Estimated Blood Loss: noneJose Newton DO110:44 AM Name Value Range Interpretation Code Description Data Susan rce(s) Supporting Document(s) ID Date Data Source [id number] 08/12/2020 09:28:04 AM EDT [facility] NT INFORMATIONPatient MRN Name Date of Age Gend*PT [id number] Trace Beal 1940 80 years M OPPT Location Admission Date/Time Visit ID [facility] 08[facility]12/20 0741 --- Jose DO Lamar([id number]) EPI ID CSN Admitting Provider [id number] Jose DO Lamar([id number])HISTORY AND PHYSICALLeo Sandra EmigdioMRN: [id number]: Pancreatic body massPLAN:1. Proceed with EUS guided biopsy of the pancreas to provide tissue diagnosisHPI: Patient presents today for EUS examination of the pancreas. Patient hassignificant aortic stenosis. He was evaluated by dining services director and a TAVRprocedure was considered. His preoperative [...] Abnormal Doppler ultrasound of carotid artery [facility]. Bilateral less then 50% stenosis Arthritis [...] years: 2 5.00 Types: Cigarettes Quit date: 1970 Years since quittin.4 Smokeless tobacco: Never UsedVaping [...] rigidityor rebound tenderness. No pulsatile masses present.Signature: Jose LIBBY Newtonate: August 12, 2020Time: 9:26 AM Name Value Range Interpretation Code Description Data Susan rce(s) Supporting Document(s) ID Date Data Source [id number] 08/23/2020 12:38:09 PM EDT [facility] LABORATORY [address] [address]Jha# MISCELLANEOUS CYTOLOGY REPORTAccession Number: [id number] [id number] Specimen(s): A: Pancreas Mass Aspirate Body FNAClinical Diagnosis and History: Pancreatic massGross DescriptionPancreas Mass Aspirate Body FNA: Received in Saccomanno fixative with acell block.Final DiagnosisSpecimen AdequacySatisfactoryFinal DiagnosisPOSITIVE FOR MALIGNANCY Malignant cells present, consistent with adenocarcinoma.The cell block contains a fragment with perineural invasion.Comments:One other pathologist reviewed this case and concurs with the diagnosis.Processed and screened at [facility],Cytology, [address] [place] [address], [address].As applicable, positive and negative controls for all immunohistochemicaland/or special stains were reviewed and considered appropriate. Reported: 08/23/2020Electronically Signed Out By Riaz Sheth MD[facility] PatholoCytotechnologist: Brina Queen CT(ASCP)[facility]bcICD code: C25.1CPT code: A: 18382O, 20392H Name Value Range Interpretation Code Description Data Susan rce(s) Supporting Document(s) ID Date Data Source [id number] 07/16/2020 11:54:00 AM EDT [facility] [address] [place] [address] PHONE: [phone] FAX: [phone] Name .................. : EMIGDIO KILLIAN Acct Number.................. : [id number] ROOM. ................. : MR Number ................... : [id number] Stay type ............. : O/P Discharge Date......... ... : 07/15/20 Admit Date ......... : 07/15/20 Admit Phys .................... : MITCH Lopez Date of ....... : 1940 Family Phys ................... : MITCH Lopez Phone .................. : [phone] Age ................................ : 80 Film# .................. .:[id number] Sex ................................. : M Unsigned transcriptions are preliminary reports and do not represent a medical or legal document MRI ABDOMEN W/O CONTRAST [id number] COMPLETE:07/15/20 07:49 [facility] [id number] Reason for Exam: MRCP, AMALIGNANT NEOPLASM BODY [...] abdomen and pelvis, Page [address] [facility] [address] [place] [address] PHONE: [phone] FAX: [phone] Name .................. : EMIGDIO KILLIAN Acct Number.................. : [id number] ROOM. ................. : Number ................... : [id number] Stay type ............. : O/P Discharge Date......... ... : 07/15/20 Admit Date ......... : 07/15/20 Admit Phys .................... : MITCH Lopez Date of ....... : 1940 Family Phys ................... : MITCH Lopez Phone .................. : [phone] Age ................................ : 80 Film# .................. .:[id number] Sex ................................. : M Unsigned transcriptions are preliminary reports and do not represent a medical or legal document MRI ABDOMEN W/O CONTRAST [id number] COMPLETE:07/15/20 07:49 [facility] [address] Reason for Exam: MRCP, AMALIGNANT NEOPLASM BODY OF PANCREAS which could include oziel gnostic imaging with CT or MRI as well as PET scanning if there is sign concern for more imaging. Electronically Reviewed and Signed By Fitz Shetty MD , 07/16/20 11:55, AML Transcribe Initials: PÉREZ , Transcribe Date: 07/15/20 15:37, Dictation Date: Copy for: MITCH LUNA via fax Copy for: 710 MED REC Page 2 of 2 Name Value Range Interpretation Code Description Data Susan rce(s) Supporting Document(s) ID Date Data Source [id number] 06/30/2020 03:03:00 PM EDT [facility] ([facility] [...] HCT IS 5% LESS SOURCE FOR DATA: [employer] 1800 OPERATION MANUAL( AUTOMATED BLOOD COUNTS AND [...] 147 mg/dL 70-110 Above high normal [facility] ([facility] NORMAL RANGES Age WBC [...] HCT IS 5% LESS SOURCE FOR DATA: [employer] 1800 OPERATION MANUAL( AUTOMATED BLOOD COUNTS AND [...] mL/min Normal Creat 0.8 mg/dL 0.7-1.2 [facility] ([facility] NORMAL RANGES Age WBC RBC [...] HCT IS 5% LESS SOURCE FOR DATA: [employer] 1800 OPERATION MANUAL( AUTOMATED BLOOD COUNTS AND [...] above >32 mL/min Normal BUN/Creatinine Ratio 18.3 [facility] ([facility] NORMAL RANGES Age [...] mL/min Normal Na 137 mmol/L 136-145 [facility] ([facility] NORMAL RANGES Age WBC RBC [...] HCT IS 5% LESS SOURCE FOR DATA: [employer] 1800 OPERATION MANUAL( AUTOMATED BLOOD COUNTS AND [...] >32 mL/min Normal CL 98.2 mmol/L 98.0-107.0 [facility] ([facility] NORMAL RANGES Age WBC RBC [...] HCT IS 5% LESS SOURCE FOR DATA: [employer] 1800 OPERATION MANUAL( AUTOMATED BLOOD COUNTS AND [...] mL/min Normal K 4.2 mmol/L 3.5-5.1 [facility] ([facility] NORMAL RANGES [...] HCT IS 5% LESS SOURCE FOR DATA: [employer] 1800 OPERATION MANUAL( AUTOMATED BLOOD COUNTS AND [...] mL/min Normal Co2 24.1 mmol/L 22.0-29.0 [facility] ([facility] NORMAL RANGES Age [...] HCT IS 5% LESS SOURCE FOR DATA: [employer] 1800 OPERATION MANUAL( AUTOMATED BLOOD COUNTS AND [...] HCT IS 5% LESS SOURCE FOR DATA: [employer] 1800 OPERATION MANUAL( AUTOMATED BLOOD COUNTS AND [...] TP 6.5 g/dL 6.6-8.7 Below low normal [facility] ( [facility] NORMAL [...] HCT IS 5% LESS SOURCE FOR DATA: [employer] 1800 OPERATION MANUAL( AUTOMATED BLOOD COUNTS AND [...] HCT IS 5% LESS SOURCE FOR DATA: [employer] 1800 OPERATION MANUAL( AUTOMATED BLOOD COUNTS AND [...] mL/min Normal Alb 5.1 g/dL 3.5-5.2 [facility] ([facility] NORMAL RANGES Age [...] HCT IS 5% LESS SOURCE FOR DATA: [employer] 1800 OPERATION MANUAL( AUTOMATED BLOOD COUNTS AND [...] Normal Alt (SGPT) 9 U/L 0-41 [facility] ([facility] NORMAL RANGES Age WBC RBC HGB [...] HCT IS 5% LESS SOURCE FOR DATA: [employer] 1800 OPERATION MANUAL( AUTOMATED BLOOD COUNTS AND [...] mL/min Normal Alp 60.0 U/L 40-129 [facility] ([facility] NORMAL RANGES Age [...] >32 mL/min Normal Globulin 1.4 Calc [facility] ([facility] NORMAL RANGES Age [...] HCT IS 5% LESS SOURCE FOR DATA: [employer] 1800 OPERATION MANUAL( AUTOMATED BLOOD COUNTS AND [...] mL/min Normal Tbili 0.49 mg/dL 0.0-1.2 [facility] ([facility] NORMAL RANGES Age WBC RBC [...] HCT IS 5% LESS SOURCE FOR DATA: [employer] 1800 OPERATION MANUAL( AUTOMATED BLOOD COUNTS AND [...] HCT IS 5% LESS SOURCE FOR DATA: [employer] 1800 OPERATION MANUAL( AUTOMATED BLOOD COUNTS AND [...] Normal Ast (Sgot) 13 U/L 0-40 [facility] ([facility] NORMAL RANGES Age WBC RBC [...] HCT IS 5% LESS SOURCE FOR DATA: [employer] 1800 OPERATION MANUAL( AUTOMATED BLOOD COUNTS AND [...] HCT IS 5% LESS SOURCE FOR DATA: [employer] 1800 OPERATION MANUAL( AUTOMATED BLOOD COUNTS AND [...] HCT IS 5% LESS SOURCE FOR DATA: [employer] 1800 OPERATION MANUAL( AUTOMATED BLOOD COUNTS AND [...] and above >32 mL/min Normal eGFR Non-Afr. [place] 84 # [facility] ([facility] [...] HCT IS 5% LESS SOURCE FOR DATA: [employer] 1800 OPERATION MANUAL( AUTOMATED BLOOD COUNTS AND [...] >32 mL/min Normal ID Date Data Source [id number] 06/30/2020 02:40:00 PM EDT [facility] ([facility] Name Value Range [...] 0.0-7.0 [facility] ([facility] [place] 34.8 % 3.0-8.0 Above high normal [facility] ([facility] Lymph 9.8 % 25.0-40.0 Below low normal [facility] ( [facility] Baso 0.2 % 0.0-2.0 [facility] ([facility] %NRBC 0.0 % 0.0-0.0 [facility] ([facility] %Ig 2.2 % 0.0-0.0 Above high normal [facility] ([facility], [facility] #Neut 4.40 10^3/uL 2.00-6.90 [facility] ([facility] #Eos 0.08 10^3/uL 0.00-0.70 [facility] ([facility] #[place] 2.95 10^3/uL 0.00-0.90 Above high normal [facility] T ([facility] #Lymph 0.83 10^3/uL 0.60-3.40 [facility] ([facility] #Baso 0.02 10^3/uL 0.00-0.20 [facility] ([facility] #Ig 0.19 10^3/uL 0.00-0.10 Above high normal [facility] T ([facility] #NRBC 0.00 10^3/uL 0.00-0.00 [facility] ([facility] Manual Diff Laboratory test result M EDENT ([facility] Segs 33 % 37-80 Below low normal [facility] ([facility] %Lymph 15 % 25-40 Below low normal [facility] ([facility], [facility] Band 13 % 0-5 Above high normal [facility] ([facility] %[place] 39 % 3-8 Above high normal [facility] ([facility] RBC Morph Laboratory test result ME VILLANUEVA ([facility] ID Date Data Source [id number] 06/30/2020 08:14:[address] [facility] Name Value Range Interpretation Code Description Data Susan rce(s) Supporting Document(s) CBC W/AUTOMATED DIFF [facility] COMPLETE BLOOD COUNT Leukocytes [#/volume] in Blood by Automated count 8.5 10^3/uL 4.2 - [address] [facility] Erythrocytes [#/volume] in Blood by Automated count 4.61 10^6/uL 4. 50 - 6.30 [facility] Hemoglobin [Mass/volume] in Blood 15.3 g/dL 14.0 - 16.0 [facility] Hematocrit [Volume Fraction] of Blood by Automated count 44.2 % 4 1.0 - 51.0 [facility] Erythrocyte mean corpuscular volume [Entitic volume] by Auto mated count 95.9 fL 80.0 - 94.[address] [facility] Erythrocyte mean corpuscular hemoglobin [Entitic mass] by Automated count 33.2 pg 27.0 - 34.0 [facility] Erythrocyte mean corpuscular hemoglobin concentration [Mass/volume] by Automated count 34.6 g/dL 31.0 - 36.0 [facility] Erythrocyte distribution width [Ratio] by Automated count 12.5 % 11.5 - 14.8 [facility] Platelets [#/volume] in Blood by Automated count 190 10^3/uL 150 - [address] [facility] Platelet mean volume [Entitic volume] in Blood by Automated count 11.1 fL 7.4 - 10.[address] [facility] Neutrophils/100 leukocytes in Blood by Automated count 52.1 % 37. 0 - 80.0 [facility] Lymphocytes/100 leukocytes in Blood by Manual count 9.8 % 25.0 - 40.[address] [facility] Monocytes/100 leukocytes in Blood by Automated count 34.8 % 3.0 - 8.[address] [facility] Eosinophils/100 leukocytes in Blood by Automated count 0.9 % 0.0 - 7.0 [facility] Basophils/100 leukocytes in Blood by Automated count 0.2 % 0.0 - 2.0 [facility] %IG 2.2 % 0.0 - 0.0 [facility] %NRBC 0.0 % 0.0 - 0.0 [facility] al Neutrophils [#/volume] in Blood by Automated count 4.40 10^3/uL 2.00 - 6.90 [facility] Lymphocytes [#/volume] in Blood by Automated count 0.83 10^3/uL 0.60 - 3.40 [facility] Monocytes [#/volume] in Blood by Automated count 2.95 10^3/uL 0.00 - 0.[address] [facility] Eosinophils [#/volume] in Blood by Automated count 0.08 10^3/uL 0.00 - 0.70 [facility] Basophils [#/volume] in Blood by Automated count 0.02 10^3/uL 0.00 - 0.20 [facility] #IG 0.19 10^3/uL 0.00 - 0.10 H [facility] H [facility]spital #NRBC 0.00 10^3/uL 0.00 - 0.00 [facility] MANUAL DIFF SEE BELOW [facility] Segmented neutrophils/100 leukocytes in Blood by Manual count 33 % 37 - [address] [facility] BAND 13 % 0 - 5 [facility] %LYMPH 15 % 25 - 40 L [facility] %MONO 39 % 3 - 8 H [facility] RBC MORPH MORPH IS NORMAL [facility] ID Date Data Source [id number] 06/29/2020 03:55:00 PM EDT [facility] ([facility] Name Value Range Interpretation Code Description Data Susan rce(s) Supporting Document(s) Lipoprotein lipase [Enzymatic activity/volume] in Serum or Plasm a 16 U/L 13-78 [facility] ([facility] ) Amylase [Enzymatic activity/volume] in Serum or Plasma 22 U/L 31-110 Below low normal [facility] ([facility] ) ID Date Data Source [id number] 06/29/2020 03:55:00 PM EDT [facility] ([facility] Name Value Range Interpretation Code Description Data Susan rce(s) Supporting Document(s) Laboratory test finding (navigational concept) Laboratory test result [facility] ([facility] Laboratory test finding (navigational concept) 1079 U/mL 0-35 Above high normal [facility] ([facility] [employer] Electrochemiluminescen ce Immunoassay (ECLIA) Values obtained with different assay methods or kits cannot be used interchangeably. Results cannot be interpreted as absolute evidence of the presence or absence of malignant disease. PDF Laboratory test result [facility] ([facility] ID Date Data Source [id number] 06/18/2020 01:21:10 PM EDT [address] [id number] Name: TRACE BEALDOB: 1940Sex: MOrdering Provider: ASHLEY Velásquez Prov: ASHLEY Reza Provider: Procedure Performed: CT ANGIOGRAM ABDOMEN PELVISExam Date: 06/18/2020 12:40MRN: [id number] Number: [id number] Class: OutpatientAccount #: [id number] for Exam: TAVR, pre intervention planningTechnique: The [...] VILMA LUNA On 06/18/2020 1:21 PMWorkstation ID: [id number] Name Value Range Interpretation Code Description Data Susan rce(s) Supporting Document(s) ID Date Data Source [id number] 06/18/2020 01:20:31 PM EDT [facility] NT INFORMATIONPatient MRN Name Date of Age Gend*PT [id number] Trace Beal 1940 80 years M HOPPT Location Admission Date/Time Visit ID Attending [id number] 06/18/20 0535 --- Jeovany Fletcher MD([id number]) EPI ID CSN Admitting Provider [id number] Jeovany Fletcher MD([id number])Cardiovascular and Thoracic Surgery HISTORY & PHYSICAL1Chief Compliant / Reason for consultation:Trace Beal is a 80 years old gentleman presenting with fatigue, dyspnea, anddizziness. No chest pain, no episodes of passing out, no ankle swelling. HisEcho was significant for severe Aortic Stenosis and [facility] today showsnon-obstructive CAD.Past Medical History:Diagnosis Date Abnormal Doppler ultrasound of carotid artery [facility] 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 Needs Financial resource strain: Not [...] file Gets together: Not on file Attends spiritism service: Not on file Active member of [...] Facility-Administered Medications: heparin (porcine) injection, , , PRN, Jeovany Fletcher MD, 5,000 Units at06/18/20927 iopamidol (ISOVUE-370) 76 %, , , PRNJeovany MD, 40 mL at lidocaine 1 % injection, , , PRJeovany Curtis MD, 5 mL at 06/18/20925 midazolam (VERSED) injection, , , PRJeovany Curtis MD, 1 mg at normal saline flush [...] PRN, Jeovany Fletcher MD, 5 mg at [id number] of SystemsReview of Systems - History obtained [...] RESULTS:LATEST RADIOLOGY RESULTS:Ct Angiogram ChestResult Date: 06/18/2020t. [address] [address] Patient Name: TRACE DOVER : 1940 Sex: M Ordering Provider: ASHLEY Velásquez Prov: ASHLEY WARREN Referring Provider: ProcedurePerformed: CT ANGIOGRAM CHEST Exam Date: 06/18/2020 12:40 Number: [id number] Patient Class: Outpatient for Exam: TAVR, pre [...] LUNA On 06/18/2020 12:57 PM Workstation ID: [id number] CatheterizationResult Date: [id number] man with severe symptomatic aortic stenosis. 1. Severe aorticstenosis with a mean gradient of 51. 2. Normal left ventricular systolicfunction. 3. Minimal nonobstructive coronary artery disease. 4. Normalpulmonary artery pressure and low filling pressures. 5. Right radial access.The patient will complete his TAVR work-up during this admission. Nocomplications, estimated blood loss minimal.Us Carotid Doppler BilateralResult Date: 06/18/2020t. [place] [address] Patient Name: TRACE DOVER : 1940 Sex: M Ordering Provider: ASHLEY MATOSuthguy Prov: ASHLEY WARREN Referring Provider: ProcedurePerformed: US CAROTID BILATERAL Exam Date: 06/18/2020 11:51 Number: [id number] Patient Class: Outpatient for Exam: TAVR protocol [...] Internal Systolic Velocity 110 cm/s End- Diastolic Gwkfpmza75 cm/s External Systolic Velocity 102 cm/s End-Diastolic Velocity 11 cm/sVertebral Artery 60 cm/s Antegrade flow ICA/CCA Systolic Ratio = 1.1Internal Carotid Artery Stenosis: Less than 50%IMPRESSION: No hemodynamically significant stenosis identified Reportelectronically signed by: VILMA LUNA On 06/18/2020 11:57 AM Workstation ID:[id number] Transthoracic (TTE)Order# [id number] physician: Zainab Coronado MD Ordering physician: LORENZA Stinsontudy date: 12/10/19Patient InformationPatient NameRuTrace wheatley ([id number]) SexMale DO1940Reason for ExamDx: Nonrheumatic aortic valve [...] in discussion with the patient.Jeffy Boyd MD [facility] FACSCardiovascular Thoracic Surgery06/18/2020, 1:19 PM Name Value Range Interpretation Code Description Data Susan rce(s) Supporting Document(s) ID Date Data Source [id number] 06/18/2020 12:57:04 PM EDT [address] [address]Gnsfjie Name: TRACE BEALDOB: 1940Sex: MOrdering Provider: ASHLEY MATOSuthguy Prov: ASHLEY WARRENReferrbeulah Provider: Procedure Performed: CT ANGIOGRAM CHESTExam Date: 06/18/2020 12:40MRN: [id number] Number: [id number] Class: OutpatientAccount #: [id number] for Exam: TAVR, pre intervention planningTechnique: The [...] VILMA LUNA On 06/18/2020 12:57 PMWorkstation ID: [id number] Name Value Range Interpretation Code Description Data Susan rce(s) Supporting Document(s) ID Date Data Source [id number] 06/18/2020 11:57:50 AM EDT [address] [address]Vtukoow Name: TRACE BEALDOB: 1940Sex: MOrdering Provider: ASHLEY Velásquez Prov: ASHLEY WARRENRefjodi Provider: Procedure Performed: US CAROTID BILATERALExam Date: 06/18/2020 11:51MRN: [id number] Number: [id number] Class: OutpatientAccount #: [id number] for Exam: TAVR protocolTechnique: Duplex sonography was [...] VILMA LUNA On 06/18/2020 11:57 AMWorkstation ID: [id number] Name Value Range Interpretation Code Description Data Susan rce(s) Supporting Document(s) ID Date Data Source [id number] 06/18/2020 10:02:06 AM EDT [facility] Name Value Range Interpretation Code Description Data Susan rce(s) Supporting Document(s) &PDF [facility] AAHFAf2wXuYTBnWo85/GWXfpONQlo2GqNLyvCCl0WGknITJjS9RydCexJOGXTFxDZZaPGCiGBqVFKU9d oRX [file] AgICAgICAgICAgICAgICAgICAgICAgICAgICAgICAg ICAgICAgICAgICAgICAgICAgICAgICAgICAgICAgICAgICAgICAgICAgICAgICAgICAgDQogICAgICAg ICAgICAgICAgICAgICAgICAgICAgICAgICAgICAgICAgICAgICAgICAgICAgICAgICAgICAgICAgICAg ICAgICAgICAgICAgICAgICAgICAgICAgICAgICAgIC AgDQogICAgICAgICAgICAgICAgICAgICAgICAgICAgICAgICAgICAgICAgICAgICAgICAgICAgICAgIC AgICAgICAgICAgICAgICAgICAgICAgICAgICAgICAgICAgICAgICAgICAgDQogICAgICAgICAgICAgIC AgICAgICAgICAgICAgICAgICAgICAgICAgICAgICAg ICAgICAgICAgICAgICAgICAgICAgICAgICAgICAgICAgICAgICAgICAgICAgICAgICAgICAgDQogICAg ICAgICAgICAgICAgICAgICAgICAgICAgICAgICAgICAgICAgICAgICAgICAgICAgICAgICAgICAgICAg ICAgICAgICAgICAgICAgICAgICAgICAgICAgICAgIC AgICAgDQogICAgICAgICAgICAgICAgICAgICAgICAgICAgICAgICAgICAgICAgICAgICAgICAgICAgIC AgICAgICAgICAgICAgICAgICAgICAgICAgICAgICAgICAgICAgICAgICAgICAgDQogICAgICAgICAgIC AgICAgICAgICAgICAgICAgICAgICAgICAgICAgICAg ICAgICAgICAgICAgICAgICAgICAgICAgICAgICAgICAgICAgICAgICAgICAgICAgICAgICAgICAgDQog ICAgICAgICAgICAgICAgICAgICAgICAgICAgICAgICAgICAgICAgICAgICAgICAgICAgICAgICAgICAg ICAgICAgICAgICAgICAgICAgICAgICAgICAgICAgIC AgICAgICAgDQogICAgICAgICAgICAgICAgICAgICAgICAgICAgICAgICAgICAgICAgICAgICAgICAgIC AgICAgICAgICAgICAgICAgICAgICAgICAgICAgICAgICAgICAgICAgICAgICAgICAgDQogICAgICAgIC AgICAgICAgICAgICAgICAgICAgICAgICAgICAgICAg ICAgICAgICAgICAgICAgICAgICAgICAgICAgICAgICAgICAgICAgICAgICAgICAgICAgICAgICAgICAg FGn6Z7npNFJhXEJuAE4oJIm0Fr9+DWcVDfCgKVD1wlVcyW6XJH0yy0QuRNcbCYNxc9NqFPn6LZ3AQVAo MEjdRO9XTUqiyl2QSKQeCEBceKJDe6skGvJjZDL0GQ FjUiknUK5ZMXVwU0rywsEkPEAbBCZGRNskGBYRMVlaOQFVRJ6LThLvL0DuxI21DVFRJr6+DQplbmRvYm pQZkG1PQOae9AbIHx7KS0ZWWPoZlipz7BeHvTlCBZSGDxsKU9SLWK6ASW7VXMrAw7NKKNwI555kaWxVH 6JBc3HPjIcKU1azy1VCjKwTKGuOnbFIbn7LAidFY0Q fVSmTZcLbVFrIZ53cbwONyWpW4Sat1SeTrN6SYDgVeXqJLpyNLQnKIAfhrRtbPXeHIbxXS5FYASjjnDg MjQgMCBSDQo+Lg0MQW1td0KwTEcdObWzZA5joz6NFKjFZwWuX1Q3jDXwV4F5RSfyNs1SIAAaTWUiSfNq BBVPWHhuST1DBT3cxuC6WF3XhJJqKCSaXGLrvHTjKA s3X45lvOPjFJnqWE7AAXX+Sigifredo+Wa2PLHOpREExKIRkIrNbLNEPOuOaS2RnX0CEc0FrM6PsVH13tUphho FpDNsoWP0EUS2rWKRgSLMHKY9ZaCIrvD3lunXvAEYbSCHURuRqW91rnNUkJBIeYHFqBATdHm6JVTPjW3 QeawJqlQmpfcTeWGTsLPJOKC7WBSkqllDpuGRowDaq GW15fIfdSA0WQv2PWqDbYB0wrx9GzWYcHn5DHUDjEl6GEDHeASAwDDOwPMI0LCThBwJrEZnzCFImQABe PNY9CRXePCMcUD9OEhQaKXSzJRDeKvElHQYeBZUsle3AVURlXCO2XbH0TZObHYRmPVCnEXbpHKLeDVMe XSboFFYeQQDuRB5CGuPfYWJcVSV2BwViKHVtIZEsie 1POXJpTGFjUjUkETZpWJYqVPMgLQqpOXEcZZS4JDe6SKZpERXySV2UHiHaGTGtEGT3MUQgDCZmHZHhkh 2CDTAdBKFcPjD2ISCgQMRkWHEmSXtgVLYaQTB3Iab3YRNqUKPvUE8CJlWoONHsGWynFBepALQpSSMivc 9BOSPlEPQlNpZ0EySkSILkBTNeATspHHMqBPG8DrQ1 YFOnCBCmMJ0JMwJnOKFuBJl2NGgdMYXaBIUaaq1MEGAiZOPqCXc7GAMpDBOqLAQzENdySXXvCMC0DXq3 CZUoGWXxBR4MEtYzZULgAXY6EQMiNMSdMIMbre4XHPFpLVLqKPF6RGElZHThNQLvYKkoLSBtSRW3EnY3 UOVsFJXqHD9VMsQyGXKjAgGcVVFmYBWmSQDarv4YUQ OqOYTlIfM9YIGuWBPgZTPqPJmaYRPqAUQ4FoTeBNFyQJKxHA7ICrHmLIGmJLZ6MqowPFVcCBTnwi9PII UmTVA2OoA0COJsJCQrLXJhUZewNOKgFLJ1UeO4EWGhGEMiEL3PWwChYWSbCZixTVxwRDFiJHMljx2AvA MhrTgjtt0AOIoDPh5FmFkiTAJ4NLddGw7dnGPaAiMh BNYINa4ZlpErEVScSMOQJErgRQAdNUV8PGOpXgL6EFZ8J2SpABUbKsQ6DnLsI2RpAmZkDeArVrU2Csu4 OSHkVGOnEZNcZ6AvHAV7MhZfUXMrVkFyNMVyJAC+PI6fCIc+Nx6Mg9LsieZ5nfMnAOt5ZnQ5CL4JDXMX T0YNCg== ID Date Data Source [id number] 06/18/2020 09:00:48 AM EDT [facility] Name Value Range Interpretation Code Description Data Susan rce(s) Supporting Document(s) [facility] NFSFBc7rFuCAWiOoh6HoAvWiCZTzGZ3toxu2E5H5lRMwH0FdiMZll4svP8DcI0FoUBWjIKUUVA5ShVOx jb2 [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 ID Date Data Source [id number] 02/24/2020 09:19:00 AM EST [facility] ([facility] Name Value Range Interpretation Code Description Data Susan rce(s) Supporting Document(s) Chol 167 mg/dL 0-200 [facility] ([facility] CHRONIC KIDNEY DISEASE STAGING [...] Serum or Plasma 50 mg/dL 35-55 [facility] ([facility] CHRONIC KIDNEY DISEASE [...] YEARS EXCLUSIVE. Trig 84 mg/dL 35-200 [facility] CHRONIC KIDNEY DISEASE STAGING [...] YEARS EXCLUSIVE. Cho/HDL Ratio 3.3 CALC [facility] ([facility] CHRONIC KIDNEY DISEASE STAGING PER [...] 2-19 YEARS EXCLUSIVE. ID Date Data Source [id number] 02/24/2020 09:19:00 AM EST [facility] ([facility] Name Value Range Interpretation Code Description Data Susan rce(s) Supporting Document(s) BUN 16 mg/dL 8-23 [facility] ([facility] CHRONIC KIDNEY DISEASE STAGING [...] 133 mg/dL 70-110 Above high normal [facility] ([facility] CHRONIC KIDNEY DISEASE [...] YEARS EXCLUSIVE. Creat 0.8 mg/dL 0.7-1.2 [facility] ([facility] CHRONIC KIDNEY DISEASE [...] YEARS EXCLUSIVE. BUN/Creatinine Ratio 21.1 CALC [facility] ([facility] CHRONIC KIDNEY DISEASE [...] YEARS EXCLUSIVE. K 4.2 mmol/L 3.5-5.1 [facility] ([facility] CHRONIC KIDNEY DISEASE STAGING PER [...] EXCLUSIVE. CL 98.9 mmol/L 98.0-107.0 [facility] ([facility] CHRONIC KIDNEY DISEASE STAGING [...] 2-19 YEARS EXCLUSIVE. CA 8.9 mg/dL 8.6-10.2 [facility] CHRONIC KIDNEY DISEASE STAGING [...] YEARS EXCLUSIVE. Co2 22.2 mmol/L 22.0-29.0 [facility] ([facility] CHRONIC KIDNEY DISEASE STAGING [...] EXCLUSIVE. Globulin 1.3 CALC [facility] ([facility] [...] YEARS EXCLUSIVE. Tbili 0.70 mg/dL 0.0-1.2 [facility] ([facility] CHRONIC KIDNEY DISEASE [...] AGED 2-19 YEARS EXCLUSIVE. eGFR 98 # [facility] ( [facility] CHRONIC KIDNEY [...] INDIVIDUALA AGED 2-19 YEARS EXCLUSIVE. eGFR Non-Afr. [place] 84 # [facility] ([facility] [...] Ex-drinker (finding) comp leted Ex- drinker (finding) [facility] Alcohol intake 12/16/2020 12:00:00 AM EDT Ex-drinker (finding) comp leted Ex- drinker (finding) [facility] Smoking 12/01/2020 06:46:50 AM EDT Ex-smoker (finding) complet ed Ex-smoker (finding) [facility] (Zach Carvalho MD [facility]) Smoking 11/29/2020 12:00:00 AM EDT Patient has never smoked co mpleted Patient has never smoked [facility] ([facility], [facility]) Alcohol intake 10/20/2020 12:00:00 AM EDT Ex-drinker (finding) comp leted Ex- drinker (finding) [facility] Alcohol intake 08/12/2020 12:00:00 AM EDT Ex-drinker (finding) comp leted Ex- drinker (finding) [facility] Alcohol intake 07/30/2020 12:00:00 AM EDT Ex-drinker (finding) comp leted Ex- drinker (finding) [facility] Alcohol intake 07/01/2020 12:00:00 AM EDT Ex-drinker (finding) comp leted Ex- drinker (finding) [facility] Alcohol intake 06/18/2020 12:00:00 AM EDT Yes completed [facility] Cigarette pack-years 06/18/2020 12:00:00 AM EDT UNK completed [facility] Cigarettes smoked current (pack per day) - Reported 06/19/19 12:00:00 AM EDT UNK completed [facility] Smoking 06/18/2020 12:00:00 AM EDT Former smoker completed Former smoker [facility] Alcohol intake 06/02/2020 12:00:00 AM EDT Yes completed [facility] Cigarette pack-years 06/02/2020 12:00:00 AM EDT UNK completed [facility] Cigarettes smoked current (pack per day) - Reported 06/03/19 12:00:00 AM EDT UNK completed [facility] Smoking 06/02/2020 12:00:00 AM EDT Former smoker completed Former smoker [facility] Tobacco use and exposure 12/09/2019 12:00:00 AM EDT Never used co mpleted Never used [facility] Cigarette pack-years 12/09/2019 12:00:00 AM EDT UNK completed [facility] Cigarettes smoked current (pack per day) - Reported 12/09/19 12:00:00 AM EDT UNK completed [facility] Smoking 12/09/2019 12:00:00 AM EDT Former smoker completed Former smoker [facility] Vital Signs ID Date Data Source UNK Name Value Range Interpretation Code Description Data Source(s) Body height 175.3 cm 175.3 cm [facility] Body weight 61.689 kg 61.689 kg [facility] Body mass index (BMI) [Ratio] 20.08 kg/m2 20.08 kg/m2 [facility] Systolic blood pressure 138 mm[Hg] 138 mm[Hg] [facility] Diastolic blood pressure 86 mm[Hg] 86 mm[Hg] [facility] Heart rate 85 /min 85 /min [facility] Body height 175.3 cm 175.3 cm [facility] Body weight 62.596 kg 62.596 kg [facility] Body mass index (BMI) [Ratio] 20.38 kg/m2 20.38 kg/m2 [facility] Oxygen saturation in Arterial blood by Pulse oximetry 94 % 94 % [facility] Body weight 137 [lb_av] 137 [lb_av] eCW1 ([facility]) Body weight 62.14 kg 62.14 kg eCW1 ([facility]) Body height [in_i] eCW1 ([facility]) Body mass index (BMI) [Ratio] 20.23 kg/m2 20.23 kg/m2 eCW1 ([facility]) Heart rate 68 /min 68 /min eCW1 ([facility]) Respiratory rate 18 /min 18 /min eCW1 ([facility]) Body temperature 96.9 [degF] 96.9 [degF] eCW1 ( [facility]) Systolic blood pressure 142 mm[Hg] 142 mm[Hg] e CW1 ([facility]) Diastolic blood pressure 78 mm[Hg] 78 mm[Hg] eCW1 ([facility]) Heart rate 88 /min 88 /min [facility] ([facility], [facility]) Diastolic blood pressure 65 mm[Hg] 65 mm[Hg] [facility] ([facility], [facility]) Systolic blood pressure 156 mm[Hg] 156 mm[Hg] M EDENT ([facility], [facility]) Oxygen saturation in Arterial blood by Pulse oximetry 98 % 98 % [facility] ([facility], [facility]) Body temperature 97.1 [degF] 97.1 [degF] [facility] ([facility], [facility]) Body weight 135.00 [lb_av] 135.00 [lb_av] MEDEN T ([facility], [facility]) Body height 69 [in_i] 69 [in_i] [facility] ([facility], [facility]) 5'9" Body mass index (BMI) [Ratio] 19.9 kg/m2 19.9 k g/m2 [facility] ([facility], [facility]) Respiratory rate 20 /min 20 /min [facility] ( [facility], [facility]) Systolic blood pressure 118 mm[Hg] 118 mm[Hg] [...] Body height 68 [in_i] 68 [in_i] [facility] ([facility] 5'8" Body weight 132.00 [lb_av] 132.00 [lb_av] MEDEN T ([facility] [place] body weight 154 [lb_av] 154 [lb_av] MEDEN T ([facility] Body mass index (BMI) [Ratio] 20.1 kg/m2 20.1 k g/m2 [facility] ([facility] Oxygen saturation in Arterial blood by Pulse oximetry 94 % 94 % [facility] ([facility] Body weight 133 [lb_av] 133 [lb_av] eCW1 ([facility]) Body weight 60.33 kg 60.33 kg eCW1 ([facility]) Body height [in_i] eCW1 ([facility]) Body mass index (BMI) [Ratio] 19.64 kg/m2 19.64 kg/m2 eCW1 ([facility]) Heart rate 94 /min 94 /min eCW1 ([facility]) Respiratory rate 16 /min 16 /min eCW1 ([facility]) Body temperature 97.9 [degF] 97.9 [degF] eCW1 ( [facility]) Systolic blood pressure 124 mm[Hg] 124 mm[Hg] e CW1 ([facility]) Diastolic blood pressure 72 mm[Hg] 72 mm[Hg] eCW1 ([facility]) Systolic blood pressure 136 mm[Hg] 136 mm[Hg] [facility] Diastolic blood pressure 76 mm[Hg] 76 mm[Hg] [facility] Heart rate 70 /min 70 /min [facility] Body temperature 36.11 Carson 36.11 Carson [facility] Respiratory rate 16 /min 16 /min [facility] Body height 172.7 cm 172.7 cm [facility] Body weight 60.782 kg 60.782 kg [facility] Body mass index (BMI) [Ratio] 20.37 kg/m2 20.37 kg/m2 [facility] Oxygen saturation in Arterial blood by Pulse oximetry 98 % 98 % [facility] Oxygen saturation in Arterial blood by Pulse oximetry 95 % 95 % [facility] Systolic blood pressure 148 mm[Hg] 148 mm[Hg] [facility] Diastolic blood pressure 65 mm[Hg] 65 mm[Hg] [facility] Heart rate 105 /min 105 /min [facility] Body temperature 36.72 [place] 36.72 Carson [facility] Respiratory rate 21 /min 21 /min [facility] Body weight 61.689 kg 61.689 kg [facility] Body mass index (BMI) [Ratio] 20.08 kg/m2 20.08 kg/m2 [facility] Body height 175.3 cm 175.3 cm [facility] Systolic blood pressure 123 mm[Hg] 123 mm[Hg] [facility] Diastolic blood pressure 76 mm[Hg] 76 mm[Hg] [facility] Oxygen saturation in Arterial blood by Pulse oximetry 97 % 97 % [facility] Heart rate 78 /min 78 /min [facility] Respiratory rate 18 /min 18 /min [facility] Body temperature 36.56 Carson 36.56 Carson [facility] Body height 175.3 cm 175.3 cm [facility] Body weight 65.772 kg 65.772 kg [facility] Body mass index (BMI) [Ratio] 21.41 kg/m2 21.41 kg/m2 [facility] Systolic blood pressure 134 mm[Hg] 134 mm[Hg] [facility] Diastolic blood pressure 74 mm[Hg] 74 mm[Hg] [facility] Heart rate 67 /min 67 /min [facility] Body height 175.3 cm 175.3 cm [facility] Body weight 64.411 kg 64.411 kg [facility] Body mass index (BMI) [Ratio] 20.97 kg/m2 20.97 kg/m2 [facility] Oxygen saturation in Arterial blood by Pulse oximetry 95 % 95 % [facility] [place] body weight 154 [lb_av] 154 [lb_av] MEDEN T ([facility] Body height 68 [in_i] 68 [in_i] [facility] ([facility] 5'8" Body weight 140.00 [lb_av] 140.00 [lb_av] MEDEN T ([facility] Body mass index (BMI) [Ratio] 21.3 kg/m2 21.3 k g/m2 [facility] ([facility] Oxygen saturation in Arterial blood by Pulse oximetry 95 % 95 % [facility] ([facility] Systolic blood pressure 120 mm[Hg] 120 mm[Hg] M EDENT ([facility] Diastolic blood pressure 78 mm[Hg] 78 mm[Hg] [facility] ([facility] Body temperature 97.9 [degF] 97.9 [degF] [facility] ([facility] Heart rate 50 /min 50 /min [facility] ([facility] Respiratory rate 14 /min 14 /min [facility] ( [facility] Systolic blood pressure 150 mm[Hg] 150 mm[Hg] [facility] Body weight 66.225 kg 66.225 kg [facility] Heart rate 72 /min 72 /min [facility] Body height 172.7 cm 172.7 cm [facility] Body mass index (BMI) [Ratio] 22.20 kg/m2 22.20 kg/m2 [facility] Oxygen saturation in Arterial blood by Pulse oximetry 96 % 96 % [facility] Diastolic blood pressure 86 mm[Hg] 86 mm[Hg] [facility] Systolic blood pressure 124 mm[Hg] 124 mm[Hg] M LILO ([facility] Diastolic blood pressure 80 mm[Hg] 80 mm[Hg] [facility] ([facility] Oxygen saturation in Arterial blood by Pulse oximetry 96 % 96 % [place] ([facility] Body temperature 98.1 [degF] 98.1 [degF] [facility] ([facility] Heart rate 70 /min 70 /min [facility] ([facility] Respiratory rate 14 /min 14 /min [facility] ( [facility] Body height 68 [in_i] 68 [in_i] [facility] ([facility] 5'8" Body weight 144.00 [lb_av] 144.00 [lb_av] MEDEN T ([facility] [place] body weight 154 [lb_av] 154 [lb_av] MEDEN T ([facility] Body mass index (BMI) [Ratio] 21.9 kg/m2 21.9 k g/m2 [facility] ([facility] Systolic blood pressure 125 mm[Hg] 125 mm[Hg] [facility] Diastolic blood pressure 75 mm[Hg] 75 mm[Hg] [facility] Heart rate 102 /min 102 /min [facility] Body temperature 36.67 [place] 36.67 [place] [facility] Oxygen saturation in Arterial blood by Pulse oximetry 97 % 97 % [facility] Respiratory rate 16 /min 16 /min [facility] Body height 172.7 cm 172.7 cm [facility] Body weight 63.4 kg 63.4 kg [facility] Body mass index (BMI) [Ratio] 21.25 kg/m2 21.25 kg/m2 [facility] Systolic blood pressure 172 mm[Hg] 172 mm[Hg] [facility] Diastolic blood pressure 90 mm[Hg] 90 mm[Hg] [facility] Heart rate 74 /min 74 /min [facility] Body height 175.3 cm 175.3 cm [facility] Body weight 68.402 kg 68.402 kg [facility] Body mass index (BMI) [Ratio] 22.27 kg/m2 22.27 kg/m2 [facility] Oxygen saturation in Arterial blood by Pulse oximetry 97 % 97 % [facility] Systolic blood pressure 134 mm[Hg] 134 [...] Body height 68 [in_i] 68 [in_i] [facility] ([facility] 5'8" Body weight 145.00 [lb_av] 145.00 [lb_av] MEDEN T ([facility] [place] body weight 154 [lb_av] 154 [lb_av] [facility] T ([facility] Body mass index (BMI) [Ratio] 22.0 kg/m2 22.0 k g/m2 [facility] ([facility] Oxygen saturation in Arterial blood by Pulse oximetry 96 % 96 % [facility] ([facility] Body height 68 [in_i] 68 [in_i] [facility] ([facility] 5'8" Body weight 146.00 [lb_av] 146.00 [lb_av] MED[facility] T ([facility] Body temperature 97.8 [degF] 97.8 [degF] [facility] ([facility] Heart rate 76 /min 76 /min [facility] ([facility] Respiratory rate 12 /min 12 /min [facility] ( [facility] [place] body weight 154 [lb_av] 154 [lb_av] MEDEN T ([facility] Oxygen saturation in Arterial blood by Pulse oximetry 95 % 95 % [facility] ([facility] Body mass index (BMI) [Ratio] 22.2 kg/m2 22.2 k g/m2 [facility] ([facility] Systolic blood pressure 138 mm[Hg] 138 mm[Hg] M EDENT ([facility] Diastolic blood pressure 84 mm[Hg] 84 mm[Hg] [facility] ([facility] Body mass index (BMI) [Ratio] 22.0 kg/m2 22.0 k g/m2 [facility] ([facility] Respiratory rate 12 /min 12 /min MEDENT ( [facility] Oxygen saturation in Arterial blood by Pulse oximetry 96 % 96 % MEDENT ([facility] Systolic blood pressure 124 mm[Hg] 124 mm[Hg] M EDENT ([facility] Diastolic blood pressure 82 mm[Hg] 82 mm[Hg] MEDENT ([facility] Body height 68 [in_i] 68 [in_i] MEDENT ([facility] 5'8" Body temperature 98.1 [degF] 98.1 [degF] MEDENT ([facility] Heart rate 70 /min 70 /min MEDENT ([facility] Body weight 145.00 [lb_av] 145.00 [lb_av] MEDEN T ([facility] [place] body weight 154 [lb_av] 154 [lb_av] MEDEN T ([facility] Patient Treatment Plan of Care Planned Activity Planned Date Details Description Data Source (s) Bisacodyl 10 MG Rectal Suppository 10/22/2020 09:00:00 AM EDT [facility] POLYETHYLENE GLYCOL 3350 142 MG/ML Oral Solution 10/21/2020 07:00:0 0 AM EDT [facility] clopidogrel 75 MG Oral Tablet 10/20/2020 09:00:00 AM EDT [facility] Amoxicillin 500 MG Oral Capsule 10/20/2020 12:00:00 AM EDT [facility] ondansetron (ZOFRAN) injection 4 mg 10/19/2020 08:48:36 PM EDT [facility] 2 ML Metoclopramide 5 MG/ML Prefilled Syringe 10/19/2020 08:48:36 P M EDT [facility] 10 ML Atropine Sulfate 0.1 MG/ML Prefilled Syringe 10/19/2020 08 :48:35 PM EDT [facility] normal saline flush 0.9 % injection 3 mL 08/12/2020 02:00:00 PM EDT [facility] Magnesium Chloride 0.86604 MEQ/ML / Pota ssium Chloride 0.0497 MEQ/ML / Sodium Acetate 0.0163 MEQ/ML / Sodium Chloride 0.0899 MEQ/ML / Sodium gluconate 5.02 MG/ML Injectable Solution [Normosol-R] 08/12/2020 12:00:00 PM EDT [facility] Magnesium Chloride 0.48925 MEQ/ML / Pota ssium Chloride 0.0497 MEQ/ML / Sodium Acetate 0.0163 MEQ/ML / Sodium Chloride 0.0899 MEQ/ML / Sodium gluconate 5.02 MG/ML Injectable Solution [Normosol-R] 08/12/2020 12:00:00 PM EDT [facility] ondansetron (ZOFRAN) injection 4 mg 08/12/2020 11:03:54 AM EDT [facility] Hydralazine Hydrochloride 20 MG/ML Injectable Solution 08/12/2020 11:03:54 AM EDT [facility] Albuterol 0.83 MG/ML Inhalant Solution 08/12/2020 11:03:54 AM EDT [facility] Aspirin 81 MG Delayed Release Oral Tablet 06/02/2020 12:00:00 AM ED T [facility] 1 ML heparin sodium, porcine 1000 UNT/ML Injection [facility] Cephalexin 50 MG/ML Oral Suspension [facility] Prochlorperazine 10 MG Oral Tablet [facility] Ondansetron 8 MG Oral Tablet [facility] Iodine, Rosalinop, (KELP PO) [facility] Flaxseed, Linseed, (FLAX PO) [facility] James, Zingiber officinalis, (JAMES PO) [facility]
== END 2021-01-23 17:41 | disposition home or self-care (01) ==
LOC: M ED 15:20
DX: M54.50 Low back pain, unspecified (principal); C25.9 Malignant neoplasm of pancreas, unspecified; Z85.46 Personal history of malignant neoplasm of prostate; I35.0 Nonrheumatic aortic (valve) stenosis; Z87.442 Personal history of urinary calculi; Z88.0 Allergy status to penicillin; Z79.899 Other long term (current) drug therapy

== ENCOUNTER → 2021-04-06 | Outpatient (CLI) | payer MEDICARE, OTHER ==
[~2021-04-06] MED LIST changes: +ONDA-84 PO; -ONDA8TAB10 PO; +PEG6SYR TD; -PROC10TA4 PO; +PROC10TA5 PO
== END ==
LOC: M PLARAD 08:02
PROVIDERS: ATTEND Specialist
DX: C25.8 Malignant neoplasm of overlapping sites of pancreas (principal)
CPT/HCPCS: 78815; A9552

== ENCOUNTER → 2021-07-12 | Outpatient (CLI) | payer MEDICARE, OTHER ==
[~2021-07-12] MED LIST changes: -D31000TA2 PO; +VITA100093 PO
[2021-07-12 14:37] LABS: FREE T4 1.01 NG/DL (0.76-1.46); RHEUMATOID FACTOR QUANT < 10.0 IU/ML (<15.0); THYROID STIMULATING HORMONE 0.876 uIU/ML (0.358-3.740); THYROXINE (T4) 6.9 UG/DL (4.5-12.0); TOTAL PROTEIN 6.4 GM/DL (6.4-8.2); VITAMIN B12 LEVEL 340 PG/ML
== END ==
LOC: M PLALAB 10:43
PROVIDERS: ATTEND Psychiatry & Neurology Neurology
DX: E07.9 Disorder of thyroid, unspecified (principal); E11.9 Type 2 diabetes mellitus without complications

== ENCOUNTER → 2021-08-27 | Outpatient (CLI) | payer MEDICARE, OTHER | LOC: M ONCR 09:47 | PROVIDERS: ATTEND General Practice | DX: C25.1 Malignant neoplasm of body of pancreas (principal); R91.1 Solitary pulmonary nodule; D18.03 Hemangioma of intra-abdominal structures; I70.0 Atherosclerosis of aorta; Z79.899 Other long term (current) drug therapy; Z85.46 Personal history of malignant neoplasm of prostate; Z87.891 Personal history of nicotine dependence; Z88.0 Allergy status to penicillin; Z92.21 Personal history of antineoplastic chemotherapy; I35.0 Nonrheumatic aortic (valve) stenosis; I25.10 Atherosclerotic heart disease of native coronary artery without angina pectoris ==

== ENCOUNTER 2021-09-01 11:09 | Outpatient (RCR) | payer MEDICARE, OTHER | END 2021-09-02 | LOC: M ONCR 11:09 | PROVIDERS: ATTEND General Practice | DX: C25.1 Malignant neoplasm of body of pancreas (principal); Z79.899 Other long term (current) drug therapy; Z85.46 Personal history of malignant neoplasm of prostate; Z87.891 Personal history of nicotine dependence ==

== ENCOUNTER 2021-09-20 11:29 | Inpatient (IN) | payer MEDICARE, OTHER ==
[~2021-09-20] VITALS: Ht 175.3 cm; Wt 65.0 kg
[2021-09-20 13:16] LABS: RSV AMPLIFICATION NEGATIVE (NEGATIVE)
[2021-09-20] MEDS ORDERED: HOME MED LIST COMPLETE! XX SCH (14:15)
[2021-09-20] MEDS ORDERED: LR 1,000 ML IV SCH ×2 (15:25→20:25)
[2021-09-20] MEDS ORDERED: VANCOMYCIN HCL 1,000 MG, VIAL MATE ADAPTER 1 EACH in NS 250 ML IV ONE (16:00)
[2021-09-20] MEDS ORDERED: LIDOCAINE 1% SDV 30ML VIAL As Ordered ONE (17:58)
[2021-09-20] MEDS ORDERED: ISOVUE-300 61% 50ML VIAL As Ordered ONE (17:59)
[2021-09-20] MEDS ORDERED: BACITRACIN OINTMENT 30GM TUBE As Ordered ONE (18:01)
[2021-09-20] MEDS ORDERED: MUPIROCIN 2% OINT 22 GM TUBE As Ordered ONE (18:02)
[2021-09-20] MEDS ORDERED: LIDOCAINE 2% 100MG/5ML SDV (FOR ANES.) As Ordered ONE (18:04)
[2021-09-20] MEDS ORDERED: propofoL 200 MG/20 ML VIAL As Ordered ONE (18:04)
[2021-09-20] MEDS ORDERED: MIDAZOLAM INJ 2MG/2ML VIAL (J2250 PER 1MG) As Ordered ONE (18:04)
[2021-09-20] MEDS ORDERED: fentaNYL 100 MCG/2 ML INJECTION As Ordered ONE (18:04)
[2021-09-20] MEDS ORDERED: oxyCODONE 5MG TAB PO PRN ×2 (20:25→22:50)
[2021-09-20] MEDS ORDERED: ONDANSETRON 4MG 2ML VIAL IV PRN ×2 (20:25→22:50)
[2021-09-20] MEDS ORDERED: fentaNYL 100 MCG/2 ML INJECTION IV PRN (20:25)
[2021-09-20] MEDS ORDERED: ENOXAPARIN 40MG/0.4ML SYRINGE (J1650 PER 10MG) SC SCH (21:00)
[2021-09-20 21:15] VITALS: BP 158/72
[2021-09-20] MEDS ORDERED: ACETAMINOPHEN TAB 650MG DOSE (2X325MG) PO PRN (21:40)
[2021-09-20] MEDS: ASCORBIC ACID 250 MG TAB PO SCH (22:52)
[2021-09-21 00:10] VITALS: BP 160/71
[2021-09-21 03:55] VITALS: BP 163/76
[2021-09-21 06:25] LABS: HEMOGLOBIN 10.1 g/dl (13.5-17.5); MEAN CORPUSCULAR HEMOGLOBIN 31.5 pg (27.0-33.0); MEAN CORPUSCULAR HGB CONC 31.6 g/dl (32.0-36.5); MEAN CORPUSCULAR VOLUME 99.7 fl (80.0-96.0); PLATELET COUNT, AUTOMATED 115 10^3/uL (150-450); RED BLOOD COUNT 3.21 10^6/uL (4.30-6.10)
[2021-09-21 06:47] LABS: BLOOD UREA NITROGEN 17 MG/DL (7-18); CALCIUM LEVEL 8.5 MG/DL (8.8-10.2); CARBON DIOXIDE LEVEL 21 MEQ/L (21-32); CHLORIDE LEVEL 113 MEQ/L (98-107); GLOMERULAR FILTRATION RATE > 60.0 (>35); GLUCOSE, FASTING 90 MG/DL (70-100); MAGNESIUM LEVEL 2.1 MG/DL (1.8-2.4); PHOSPHORUS LEVEL 3.7 MG/DL (2.5-4.9); POTASSIUM SERUM 3.9 MEQ/L (3.5-5.1); SODIUM LEVEL 143 MEQ/L (136-145)
[2021-09-21 07:33] LABS: ATYPICAL LYMPH 6 % (0-5); LYMPHOCYTES 6 % (16-44); METAMYELOCYTES 3 % (0-0); MONOCYTES 32 % (0-5); NEUTROPHILS 53 % (28-66)
[2021-09-21 07:34] LABS: TEAR DROP CELLS 1+
[2021-09-21 07:35] LABS: PLATELET ESTIMATE DECREASED (NORMAL)
[2021-09-21] MEDS: ASCORBIC ACID 250 MG TAB PO SCH (08:25)
[2021-09-21 08:53] VITALS: BP 179/77
[2021-09-21 12:19] VITALS: BP 150/80
[2021-09-21] MEDS ORDERED: OXYC-517 PO (12:22)
[2021-09-21] MEDS ORDERED: ASCO250T20 PO (12:22)
== END 2021-09-21 14:55 | disposition home health service (06) | DRG 243 ==
LOC: M ED 11:29 → M ED INP 16:08 → M PCU 21:22
PROVIDERS: ADMIT Internal Medicine; ATTEND Internal Medicine
PROC: 02H63JZ Insertion of Pacemaker Lead into Right Atrium, Percutaneous Approach (ICD-10-PCS; 2021-09-20)
PROC: 02HK3JZ Insertion of Pacemaker Lead into Right Ventricle, Percutaneous Approach (ICD-10-PCS; 2021-09-20)
PROC: 0JH606Z Insertion of Pacemaker, Dual Chamber into Chest Subcutaneous Tissue and Fascia, Open Approach (ICD-10-PCS; principal; 2021-09-20 14:56)
DX: I44.2 Atrioventricular block, complete (principal); C25.1 Malignant neoplasm of body of pancreas; Z68.1 Body mass index [BMI] 19.9 or less, adult; R91.1 Solitary pulmonary nodule; Z95.2 Presence of prosthetic heart valve; R01.1 Cardiac murmur, unspecified; I45.10 Unspecified right bundle-branch block; Z92.21 Personal history of antineoplastic chemotherapy; Z88.0 Allergy status to penicillin; Z92.3 Personal history of irradiation; I35.0 Nonrheumatic aortic (valve) stenosis; Z66 Do not resuscitate; Z85.46 Personal history of malignant neoplasm of prostate; I25.10 Atherosclerotic heart disease of native coronary artery without angina pectoris; Z87.891 Personal history of nicotine dependence

== ENCOUNTER → 2021-09-22 | Outpatient (CLI) | payer MEDICARE, OTHER ==
[~2021-09-22] MED LIST changes: +ASCO250T20 PO; +OXYC-517 PO
== END ==
LOC: M EKG 09:28
PROVIDERS: ATTEND Nurse Practitioner
DX: R00.1 Bradycardia, unspecified (principal)

== ENCOUNTER 2021-10-01 08:51 | Outpatient (RCR) | payer MEDICARE, OTHER ==
[2021-09-20 10:57] VITALS: BP 162/58
== END 2021-10-03 ==
LOC: M ONCR 08:51
PROVIDERS: ATTEND General Practice
DX: C25.1 Malignant neoplasm of body of pancreas (principal)

== ENCOUNTER 2021-10-29 10:05 | Outpatient (RCR) | payer MEDICARE, OTHER ==
[2021-09-20 10:57] VITALS: BP 162/58
== END 2021-11-03 ==
LOC: M ONCR 10:05
PROVIDERS: ATTEND General Practice
DX: C25.1 Malignant neoplasm of body of pancreas (principal)

== ENCOUNTER → 2021-11-17 | Outpatient (CLI) | payer MEDICARE, OTHER ==
[~2021-11-17] MED LIST changes: +ELIQ2.5T PO
== END ==
LOC: M ONCR 11:40
PROVIDERS: ATTEND Dietitian, Registered
DX: C25.1 Malignant neoplasm of body of pancreas (principal); Z92.21 Personal history of antineoplastic chemotherapy; Z90.79 Acquired absence of other genital organ(s); Z79.891 Long term (current) use of opiate analgesic; Z79.899 Other long term (current) drug therapy

== ENCOUNTER → 2021-12-14 | Outpatient (CLI) | payer MEDICARE, OTHER ==
[~2021-12-14] VITALS: Ht 175.3 cm; Wt 62.7 kg
[2021-12-14 10:11] VITALS: BP 173/90
== END ==
LOC: M PAL 10:01
PROVIDERS: ATTEND Nurse Practitioner Adult Health
DX: C25.1 Malignant neoplasm of body of pancreas (principal); R91.1 Solitary pulmonary nodule; G89.3 Neoplasm related pain (acute) (chronic); I70.0 Atherosclerosis of aorta; Z51.5 Encounter for palliative care; Z66 Do not resuscitate; Z95.0 Presence of cardiac pacemaker; K59.00 Constipation, unspecified; Z88.0 Allergy status to penicillin; Z85.46 Personal history of malignant neoplasm of prostate; Z87.891 Personal history of nicotine dependence; Z79.01 Long term (current) use of anticoagulants; Z79.899 Other long term (current) drug therapy

== ENCOUNTER → 2022-01-21 | Outpatient (CLI) | payer MEDICARE, OTHER | LOC: M ONCR 09:14 | PROVIDERS: ATTEND General Practice | DX: C25.1 Malignant neoplasm of body of pancreas (principal); Z79.01 Long term (current) use of anticoagulants; Z79.899 Other long term (current) drug therapy; Z87.891 Personal history of nicotine dependence; Z88.0 Allergy status to penicillin; Z92.21 Personal history of antineoplastic chemotherapy; Z92.3 Personal history of irradiation; Z95.0 Presence of cardiac pacemaker ==

== ENCOUNTER → 2022-02-17 | Outpatient (CLI) | payer MEDICARE, OTHER ==
[~2022-02-17] MED LIST changes: +GASTROGRAFIN SOLUTION 30ML As Ordered ONE; +ISOVUE-370 76% 100ML VIAL As Ordered ONE
== END ==
LOC: M RAD 10:47
PROVIDERS: ATTEND Nurse Practitioner
DX: C25.9 Malignant neoplasm of pancreas, unspecified (principal)
CPT/HCPCS: 70491; 71260; 74177; Q9963; Q9967

== ENCOUNTER → 2022-05-20 | Outpatient (CLI) | payer MEDICARE, OTHER ==
[~2022-05-20] MED LIST changes: +COLA100C5 PO; +LACT20EL PO; +MAGICMW SSP; +VITMTA PO
== END ==
LOC: M RAD 11:13
PROVIDERS: ATTEND Nurse Practitioner
DX: C25.9 Malignant neoplasm of pancreas, unspecified (principal); R91.8 Other nonspecific abnormal finding of lung field; D35.00 Benign neoplasm of unspecified adrenal gland
CPT/HCPCS: 70470; 70491; 71260; 74177; Q9963; Q9967

== ENCOUNTER 2022-07-02 12:36 | Emergency (ER) | payer MEDICARE, OTHER ==
[~2022-07-02] VITALS: Ht 177.8 cm; Wt 57.3 kg
[~2022-07-02 12:36] MED LIST changes: -GASTROGRAFIN SOLUTION 30ML As Ordered ONE; -ISOVUE-370 76% 100ML VIAL As Ordered ONE; +megestrol PO
[2022-07-02] MEDS ORDERED: MORPHINE 2 MG/ML 1ML VIAL IV PRN (13:20)
[2022-07-02] MEDS ORDERED: ONDANSETRON 4MG 2ML VIAL IV ONE (13:20)
[2022-07-02] MEDS ORDERED: NS 1,000 ML IV SCH (13:20)
[2022-07-02 14:01] LABS: HEMATOCRIT 38.5 % (42.0-52.0); HEMOGLOBIN 13.2 g/dl (13.5-17.5); MEAN CORPUSCULAR HEMOGLOBIN 33.8 pg (27.0-33.0); MEAN CORPUSCULAR HGB CONC 34.3 g/dl (32.0-36.5); MEAN CORPUSCULAR VOLUME 98.7 fl (80.0-96.0); WHITE BLOOD COUNT 5.8 10^3/uL (4.0-10.0)
[2022-07-02 14:08] LABS: PLATELET COUNT, AUTOMATED 88 10^3/uL (150-450)
[2022-07-02 14:23] LABS: LIPASE 15 U/L (12-53)
[2022-07-02 14:25] LABS: ALBUMIN 3.6 G/DL (3.2-5.2); ALKALINE PHOSPHATASE 88 U/L (46-116); ALT/SGPT 11 U/L (7.0-40); AST/SGOT 14 U/L (<34); BILIRUBIN,DIRECT 0.7 MG/DL (<0.4); BILIRUBIN,TOTAL 1.3 MG/DL (0.3-1.2); BLOOD UREA NITROGEN 24 MG/DL (9-23); CALCIUM LEVEL 8.8 MG/DL (8.3-10.6); CARBON DIOXIDE LEVEL 22 MMOL/L (20-31); CHLORIDE LEVEL 104 MMOL/L (98-107); CREATININE FOR GFR 0.86 MG/DL (0.70-1.30); GLOMERULAR FILTRATION RATE > 60.0 (>35); GLUCOSE, FASTING 200 MG/DL (74-106); POTASSIUM SERUM 4.1 MMOL/L (3.5-5.1); SODIUM LEVEL 136 MMOL/L (136-145); TOTAL PROTEIN 5.7 G/DL (5.7-8.2)
[2022-07-02] MEDS ORDERED: ISOVUE-370 76% 100ML VIAL As Ordered ONE (14:37)
[2022-07-02 14:44] VITALS: BP 110/59
[2022-07-02 14:54] LABS: ATYPICAL LYMPH 3 % (0-5); MONOCYTES 1 % (0-5); NEUTROPHILS 94 % (28-66)
[2022-07-02 14:55] LABS: PLATELET ESTIMATE DECREASED (NORMAL)
[2022-07-02 14:56] LABS: GIANT PLATELETS 1+
[2022-07-02] MEDS ORDERED: HYDR-3713 PO (16:32)
== END 2022-07-02 16:49 | disposition home or self-care (01) ==
LOC: M ED 12:36
DX: C25.9 Malignant neoplasm of pancreas, unspecified (principal); R18.8 Other ascites; M54.50 Low back pain, unspecified; C61 Malignant neoplasm of prostate; Z86.79 Personal history of other diseases of the circulatory system; Z79.01 Long term (current) use of anticoagulants; Z87.891 Personal history of nicotine dependence; Z88.0 Allergy status to penicillin; Z79.810 Long term (current) use of selective estrogen receptor modulators (SERMs); Z79.83 Long term (current) use of bisphosphonates; Z79.899 Other long term (current) drug therapy
CPT/HCPCS: 74177; 80048; 80076; 83605; 83690; 85025; 85049; 85055; 93005; 93041; 96361; 96374; 96375; 99285; J2405; Q9967

== ENCOUNTER → 2022-07-11 | Outpatient (CLI) | payer MEDICARE, OTHER ==
[~2022-07-11] MED LIST changes: +CBD OIL PO; +DEXA4TA PO; +HYDR-3713 PO; +ISOVUE-370 76% 100ML VIAL As Ordered ONE; +ZOLO50TA PO
== END ==
LOC: M RAD 10:12
PROVIDERS: ATTEND Nurse Practitioner
DX: C25.9 Malignant neoplasm of pancreas, unspecified (principal); R91.8 Other nonspecific abnormal finding of lung field
CPT/HCPCS: 71260; Q9967

== ENCOUNTER → 2022-07-13 | Outpatient (CLI) | payer MEDICARE, OTHER ==
[~2022-07-13] VITALS: Ht 175.3 cm; Wt 57.1 kg
[~2022-07-13] MED LIST changes: -ISOVUE-370 76% 100ML VIAL As Ordered ONE
[2022-07-13 11:07] VITALS: BP 150/94
[2022-07-13 13:52] LABS: INR 1.37; PROTHROMBIN TIME 17.1 SECONDS (12.5-14.5)
[2022-07-13 13:53] LABS: PARTIAL THROMBOPLASTIN TIME 32.8 SECONDS (24.8-34.2)
== END ==
LOC: M PAL 10:49
PROVIDERS: ATTEND Nurse Practitioner Adult Health
DX: C25.1 Malignant neoplasm of body of pancreas (principal); C77.9 Secondary and unspecified malignant neoplasm of lymph node, unspecified; R91.8 Other nonspecific abnormal finding of lung field; I77.89 Other specified disorders of arteries and arterioles; I87.8 Other specified disorders of veins; R18.8 Other ascites; R06.02 Shortness of breath; R63.0 Anorexia; R64 Cachexia; R53.83 Other fatigue; Z51.5 Encounter for palliative care; G89.3 Neoplasm related pain (acute) (chronic); Z79.01 Long term (current) use of anticoagulants; Z79.899 Other long term (current) drug therapy; Z85.46 Personal history of malignant neoplasm of prostate; Z87.891 Personal history of nicotine dependence; Z90.79 Acquired absence of other genital organ(s); Z95.0 Presence of cardiac pacemaker; Z95.2 Presence of prosthetic heart valve; Z66 Do not resuscitate; Z88.0 Allergy status to penicillin
CPT/HCPCS: 85610; 85730; G0463

== ENCOUNTER → 2022-07-19 | Outpatient (CLI) | payer MEDICARE, OTHER ==
[2022-07-19 15:30] VITALS: BP 143/72
== END ==
LOC: M IRPRO 12:58
PROVIDERS: ATTEND Nurse Practitioner Adult Health
DX: R18.8 Other ascites (principal); C25.9 Malignant neoplasm of pancreas, unspecified; R06.02 Shortness of breath